=== PATIENT | male | born 1970 | race Caucasian/White ===

== ENCOUNTER 2019-10-09 10:39 | Emergency (ER) | payer OTHER ==
[~2019-10-09] VITALS: Ht 188 cm; Wt 102.1 kg
--- OUTSIDE RECORDS SUMMARY | ~2019-10-09 | XMS | Encounter Summary ---
Demographics + + + | Address | [address] | | | [place] [address] | + + + | Home Phone | | + + + | Preferred Language | Unknown | + + + | Marital Status | | + + + | Church Affiliation | NRP | + + + | Race | White | + + + | Ethnic Group | Not or | + + + Author + + + | Author | [facility] | + + + | Organization | [facility] | + + + | Address | Unknown | + + + | Phone | Unavailable | + + + Support + + + + + | Name | Relationship | Address | Phone | + + + + + | Cecile Chowdhury | ECON | [address] | | | | | [place] [address] | | + + + + + Care Team Providers + +------+ + | Care [facility] Name | Role | Phone | + +------+ + | Daniel Cannon MD | PCP | | + +------+ + Encounter Details +--------+ + + + + | Date | Type | Department | Care Team | Description | +--------+ + + + + | 04/18/ | Telephone | Otolaryngology | [facility] | | | 2017 | | Laryngology Services | MD [facility] [address] | | | | | at [facility] [address] | | | | | [place], | [place], [place] | | | | | [place] [address] | [address] | | | | | [phone] | [phone] | | | | | | | | +--------+ + + + + Social History + +-------+ +--------+ + | Tobacco Use | Types | Packs/Day | Years | Date | | | | | Used | | + +-------+ +--------+ + | Former Smoker | | 1.5 | 24 | Quit: 12/18/2017 | + +-------+ +--------+ + + +---+---+---+ | Smokeless Tobacco: | | | | | Never Used | | | | + +---+---+---+ + + | Comments: using Chantix--2 cigarettes per day | + + + + +---------+ + | Alcohol Use | Drinks/Week | oz/Week | Comments | + + +---------+ + | Yes | 84 Cans of beer | 84.0 | 12 pack daily | + + +---------+ + + + + | Sex Assigned at | Date Recorded | | | | + + + | Not on file | | + + + + + + + | Job Start Date | Occupation | Industry | + + + + | Not on file | Not on file | Not on file | + + + + + + + + | Travel History | Travel Start | Travel End | + + + + + + | No recent travel history available. | + + documented as of this encounter Functional Status + + + + | Functional Status | Response | Date of Assessment | + + + + | Because of a physical, mental, or emotional | No | 01/17/2018 | | condition, do you have serious difficulty | | | | doing errands alone such as visiting the | | | | doctor? | | | + + + + + + + + | Cognitive Status | Response | Date of Assessment | + + + + | Because of a physical, mental, or emotional | No | 01/17/2018 | | condition, do you have serious difficulty | | | | concentrating, remembering, or making | | | | decisions? 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
--- OUTSIDE RECORDS SUMMARY | ~2019-10-09 | XMS | Encounter Summary ---
Demographics + + + | Address | [address] | | | [place] [address] | + + + | Home Phone | | + + + | Preferred Language | Unknown | + + + | Marital Status | | + + + | Mandaeism Affiliation | NRP | + + + | Race | White | + + + | Ethnic Group | Not or | + + + Author + + + | Author | [facility] | + + + | Organization | [facility] | + + + | Address | Unknown | + + + | Phone | Unavailable | + + + Support + + + + + | Name | Relationship | Address | Phone | + + + + + | Cecile Chowdhury | ECON | [address] | | | | | [place] [address] | | + + + + + Care Team Providers + +------+ + | Care Fretted Instruments Inspector Name | Role | Phone | + +------+ + | Daniel Cannon MD | PCP | | + +------+ + Reason for Referral PROC - Inpatient Surgery (Routine) +--------+---------+ + + + + | Status | Reason | Specialty | Diagnoses / | Referred By | Referred To | | | | | Procedures | Contact | Contact | +--------+---------+ + + + + | Closed | Coded | Otolaryngolog | Diagnoses | Blanka, | Blanka, | | | | y | Malignant | Pasquale Little, | Pasquale Little MD | | | | | neoplasm of | [address] | | | | | glottis | [address] | [address] | | | | | ([facility]) | [address] [place] | [place] [place], | | | | | Dysphonia | [place], [place] | [place] | | | | | Procedures | [id number] | [address] | | | | | REQUEST TO | Phone: | Phone: | | | | | SURGERY | [phone] | [phone] | | | | | DIRECTOR TRIAL | Fax: | Fax: | | | | | [place] PART REMV | [phone] | [phone] | | | | | | | | | | | | LARYNX,ANTER | | | | | | | -LAT-VERT | | | | | | | [place] REMOVAL | | | | | | | OF LARYNX | | | | | | | MN REMOVAL | | | | | | | NODES, | | | | | | | NECK,CERV | | | | | | | MOD RAD MN | | | | | | | PLACE PERCUT | | | | | | | GASTROSTOMY | | | | | | | TUBE MN | | | | | | | CRICOPHAYNGE | | | | | | | AL MYOTOMY | | | | | | | [place] | | | | | | | ENDOSCOPIC | | | | | | | REVISION OF | | | | | | | LARYNX 90 G | | | +--------+---------+ + + + + Reason for Visit + + + | Reason | Comments | + + + | New patient | | | consultation | | + + + | Neoplasm Of Larynx | | + + + Consultation (Routine) +--------+--------+ + + + + | Status | Reason | Specialty | Diagnoses / | Referred By | Referred To | | | | | Procedures | Contact | Contact | +--------+--------+ + + + + | Closed | | Otolaryngolog | Diagnoses | Tolba, | Blanka, | | | | y | Laryngeal | Javier Gonzalez MD | Pasquale Little MD | | | | | cancer (HCC) | [address] | | | | | Procedures | [address] | [address] | | | | | CONSULT TO | [place], [place] | [place], | | | | | ENT GENERAL | [id number] | [place] | | | | | | Phone: | [phone] | | | | | | [phone] | Phone: | | | | | | Fax: | [phone] | | | | | | [phone] | Fax: | | | | | | | [phone] | +--------+--------+ + + + + Encounter Details +--------+---------+ + + + | Date | Type | Department | Care Team | Description | +--------+---------+ + + + | 01/04/ | Office | Otolaryngology | Pasquale Moscoso | T3N0 SCCa, right | | 2018 | Visit | Laryngology Services | MD [place] [address] | glottis (Primary | | | | at [facility] [address] | Dx); Dysphonia | | | | [address] [place], | [place], [place] | | | | | [place] [address] | [address] | | | | | [phone] | [phone] | | | | | | | | +--------+---------+ + + + Social History + +-------+ +--------+ + | Tobacco Use | Types | Packs/Day | Years | Date | | | | | Used | | + +-------+ +--------+ + | Former Smoker | | 1.5 | 25 | Quit: 11/29/2017 | + +-------+ +--------+ + + +---+---+---+ | Smokeless Tobacco: | | | | | Never Used | | | | + +---+---+---+ + + | Tobacco Cessation: Counseling Given: Yes | | Comments: using Chantix | + + + + +---------+ + | Alcohol Use | Drinks/Week | oz/Week | Comments | + + +---------+ + | Yes | 126 Cans of beer | 126.0 | "3 six-packs" daily | + + +---------+ + + [...] + + documented as of this encounter Last Filed Vital Signs + + + + + | Vital Sign | Reading | Time Taken | Comments | + + + + + | Blood Pressure | 142/92 | 01/05/2018 8:54 AM | | | | | PDT | | + + + + + | Pulse | 76 | 01/05/2018 8:54 AM | | | | | PDT | | + + + + + | Temperature | - | - | | + + + + + | Respiratory Rate | 14 | 01/05/2018 8:54 AM | | | | | PDT | | + + + + + | Oxygen Saturation | - | - | | + + + + + | Inhaled Oxygen | - | - | | | Concentration | | | | + + + + + | Weight | 104.3 kg (230 lb) | 01/05/2018 8:54 AM | | | | | PDT | | + + + + + | Height | 188 cm (6' 2") | 01/05/2018 8:54 AM | | | | | PDT | | + + + + + | Body Mass Index | 29.53 | 01/05/2018 8:54 AM | | | | | PDT | | + + + + + documented in this encounter Progress Notes Pasquale Msocoso MD - 01/04/2018 3:30 PM PDT PATIENT: Ronni Chowdhury MR#: [id number] : 1970 REQUESTING PROVIDER: Javier Montñao MD [address] [place] [address] PRIMARY CARE PROVIDER: Daniel Cannon MD CLINIC: [facility] CHIEF COMPLAINT: Chief Complaint Patient presents with New patient consultation Neoplasm Of Larynx HPI: Ronni Chowdhury is a 47 y.o. male who presents to the [facility] for evaluation of head and neck cancer. Mr. Chowdhury has a 6 month history of h oarseness that failed to respond to antibiotics and proton pump inhibitor. He was seen in [facility] by Dr. Castillo and found to have a lesion of the right vocal fold with diminished mo tion, suggesting a T2 lesion. This was confirmed at operation to be a squamous cell carcino ma. A CT scan of the neck and chest showed no sign of regional or distant spread. Mr. Yanna henning was referred initially to the [facility], per notes, but he ended up seeing Dr. Montaño in Medical Oncology here. Dr. Montaño evaluated Mr. Chowdhury and recommended a surgica l opinion with post-operative radiation therapy reserved for positive margins. He now does not note periods of normal voicing. Specific difficulties with voicing include : poor vocal quality, weak voice, inability to yell and trouble voicing on the telephone. H e does not note anterior neck discomfort or pain with voicing. He does not note globus sens ation. He does not note pain with swallowing. He does not note specific difficulties with swallowing. He has not altered his diet. He denies coughing and sputtering with swallowing, trouble breathing while swallowing, choking or recent aspiration-associated pneumonia. He denies dyspnea or noisy breathing. He has asthma, but does not feel that his breathing is l imited. He notes that he can easily walk 3-5 flights of stairs and does so periodically. Suresh ji has not had any fevers, chills or sweats. He has not had a history of radiation therapy. He has not had a history of chemotherapy. 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 His vocal demands are primar chary those of conversational speech and heavy telephone use. He reports that he is not talka tive. He notes that he rarely abuses his voice with yelling or shouting. PREVIOUS SURGERY: He has not had previous surgery on his esophagus. He has had previous s urgery on his larynx only for biopsy. He has had recent intubation. 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 Castillo Deviated nasal septum repair 2006 Liver biopsy 11/2016 SOCIAL Hx: Social History Social History Marital status: Spouse name: N/A Number of children: N/A Years of education: N/A Occupational History Not on file. Social History Main Topics Smoking status: Former Smoker Packs/day: 1.50 Years: 25.00 Quit date: 11/29/2017 Smokeless tobacco: Never Used Comment: using Chantix Alcohol use 75.6 oz/week 126 Cans of beer per week Comment: "3 six-packs" daily Drug use: Yes Types: Smoke Comment: marajuana Sexual activity: Not on file Other Topics Concern Not on file Social History Narrative Mr. Chowdhury is partnered. 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 He lives in [facility] He does have children. He does not have supportive friends or family members in the [facility] area. FAMILY HX: Family History Problem Relation Cancer Paternal Uncle 2 uncle's lung None Mother None Father Thyroid Neg Hx Tremors Neg Hx Movement Disorders Neg Hx ALLERGIES:No Known Allergies MEDICATIONS: Current Outpatient Prescriptions Medication Sig amLODIPine 10 mg oral tablet Take 10 mg by mouth once daily. CHANTIX STARTING MONTH BOX 0.5 mg (11)- 1 mg (42) oral tablets,dose pack TAKE ONE 0.5MG TABLET BY MOUTH DAILY ON DAYS 1-3, THEN ONE 0.5MG ... (REFER TO PRESCRIPTION NOTES). fluticasone-salmeterol (ADVAIR DISKUS) 500-50 mcg/dose inhalation blister with device i nhale 1 puff by mouth INTO THE LUNGS 2 TIMES DAILY VENTOLIN HFA 90 mcg/actuation inhalation HFA aerosol inhaler inhale 1-2 puffs every 4 t o 6 hours if needed No current facility-administered medications for this visit. ROS: He does note a history of hemochromatosis managed by Dr. Cannon and manifest only as elevated iron level, by his report. He has not had problems with anesthesia in the past. He does not note head tremors. He does not note extremity tremors. He does not note probl ems with anxiety. He does not note problems with depression. System review was otherwise negative for: recent objective fevers, productive cough, recent hemoptysis, physiologically significant murmur, recent angina, recent myocardial infarction, persistent arrhythmia, str dee dee, liver disease, primary bleeding disorder, bowel problems, or renal insufficiency/failur e. LAST WEIGHTS: Wt Readings from Last 3 Encounters: 01/05/18 104.3 kg (230 lb) 01/04/18 104.3 kg (230 lb) 12/26/17 104.1 kg (229 lb 8 oz) EXAMINATION: BP 142/92 | Pulse 76 | RR 14 | Ht 1.88 m (6' 2") | Wt 104.3 kg (230 lb) | BMI 29.53 kg/(m^2) Gen: He is a 47 y.o. male. He is awake, alert and comfortable with the examination. His weight is elevated. He is normocephalic. Ears: The pinnae are normal. External auditory canals show minimal cerumen bilaterally. The tympanic membranes are clear with normal anatomic landmarks and an aerated middle ear sp yobani. Nose: The nasal dorsum is straight and the nares are widely patent. The mucosa is pink and there are no lesions or masses noted. There is no significant nasal obstruction noted. Face: There are no worrisome lesions noted of the face or head. Salivary Glands: The salivary glands are soft and show no lesions or masses within the par otid or submandibular glands bilaterally. There is no obvious obstruction of Stensen's or W bina's ducts bilaterally. Oropharynx: Normal lips and oral competence are noted. The dentition is fair. The mucosa is dry and pale, but shows no lesions or masses. The tonsils are 1+ and the fossae show no lesions. Bimanual palpation of the gigivolabial sulcus, lingual sulcus, tonsillar pillars, palate and base of tongue did not demonstrate any concerning lesions or masses. Neck: The neck is atraumatic. There is no lymphadenopathy noted in the anterior, posterior , digastric or submental triangles. The thyroid is palpable, but not enlarged or tender. I cannot appreciate any nodules. The larynx is anatomic in positioning. The bilateral thyro hyoid muscle(s) are tight with voicing. The thyrohyoid muscle(s) are not tender. The bilat eral digastric muscle(s) are not tight with voicing. The digastric muscle(s) are not tender . The base of tongue is tight with voicing. It is not tender to palpation. Chest: Chest rise is symmetric and there is no audible wheezing, stridor or wet vocal qual ity. His chest is clear to auscultation bilaterally. Heart: He has a regular rate and rhythm. His pulses are full. Neurologic: The patient is awake, alert and cooperative with the examination. Responses t o questions were judged to be appropriate throughout the interview. The extraoccular moveme nts are intact and symmetric throughout. The pupils are equal. Application Integration Engineer strength does jessica ear full bilaterally. Facial motion is normal on the right. Facial motion is normal on t he left. Hearing is grossly intact. Gag reflex is normal on the right. Gag reflex is nor mal on the left. Palatal elevation is normal on the right. Palatal elevation is normal on the left. Tongue bulk is normal bilaterally and protrusion is midline. Tongue protrusion i s normal on the right. Tongue protrusion is normal on the left. There are no tremors of t he head, palate or tongue noted. There are no extremity tremors noted. VOICE EVALUATION: Perceptual voice evaluation demonstrates dysphonia which is mild to mod erate. The pitch is elevated for a male and shows limited range. Vocal intensity is accepta ble and shows limited upper range. There is 1-2+ roughness, 1-2+ breathiness, 0 asthenia and 1-2+ tightness appreciated. There is no tremor noted with sustained vowel phonation. I am unable to detect voice breaks. Glottal parsons is not detected. There is no diplophonia n oted. Articulation is normal. Resonance is mildly throat-focused. LARYNGOSCOPY: Laryngoscopy was performed using a distal-chip Olympus flexible videolaryngo scope following the topical nasal application of oxymetazoline and pontocaine. This was per formed because the patient's gag reflex precluded adequate transoral indirect laryngoscopy. This demonstrates a clear vallecula and crisp epiglottis. The aryepiglottic folds are inta ct and symmetric bilaterally. The hypopharynx is clear to the limits of my examination toda y and shows no pooling. The interarytenoid space demonstrates no lesions or pachydermia. T he false vocal folds are symmetric and without lesions or masses. They show minimal incorpo ration during sustained vowel phonation. The vocal folds show normal motion on the left and absent motion on the right. There is slight motion to the arytenoid, but the true vocal fo ld is fixed. The right fold is in a median position. There is no paradoxical motion. The m edial edges are crisp with mildly irregular leukoplakia on the right and none on the left. The mucosal covering appears edematous and mildly erythematous on the left, but otherwise he althy. There is obvious vascular ectasia or erythema. While closure is difficult to assess completely without stroboscopy, it appears to be complete with no anterior glottic gap. Th e vocal processes show no granulomas or contact ulcers. The subglottis and proximal trachea is clear and unobstructed to the limits of the examination today. No pseudosulcus can be a ppreciated on indirect examination. VIDEOSTROBOSCOPY: Laryngovideostroboscopy was performed today by Ruth Marinelli, Ph.D. Re view of laryngovideostroboscopy demonstrates laryngeal anatomy and motion as noted above. T here is moderate laryngeal hyperfunction which is most notable in the lateral dimension(s). There is not noted to be increased thick laryngeal mucous. Cricothyroid function appears to be intact on the left. The mucosal wave is occasionally periodic. Propagation of the mucos al waveform is anterior to posterior. There is no chasing asymmetry noted. On the right, t he wave amplitude is globally absent. On the left, the wave amplitude is globally decreased . Closure is not complete with a irregular pressed slit-like closure. There is noted to be a vertical phase defect by videostroboscopy. On the right, the mucosal edge appears mildly irregular. On the left, the mucosal edge appears free of lesions. On the right, the submu cosal space appears stiff diffusely. On the left, the submucosal space appears free of lesi ons. CT SCAN: Computed tomography of the neck and chest from 12/15/17 demonstrates: There is a soft tissue mass noted within the right paraglottic space that distorts the vent ricle mildly. It does not extend into the subglottic airway significantly. It does not enc robledo on the piriform near the cricoarytenoid joint laterally. There is no cartilage erosio n noted. The pre-epiglottic space appears normal. There is no lymphadenopathy noted. Ther e are no lesions or masses noted within the chest. I have reviewed these images and agree w ith the radiologist's findings. --JSS ASSESSMENT: Mr. 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 While Dr. Castillo had noted some motion of the ri ght vocal fold, I cannot appreciate any today. 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 I think that this is best managed with supracricoid partial laryngectomy, as I cannot expect to cure the lesion endoscopically. Chemoradiation therapy could be considered, but the failure rate his higher than with surgery and he would be expe cted to live for many years following this with progressive radiation fibrosis and expected voice, swallowing and airway challenges. We discussed the etiology and management of advan nelly glottic squamous cell carcinoma today at great length. Treatment options generally incl ude organ preservation chemoradiation therapy, total laryngectomy or organ preservation surg teodora. There are voice, airway and swallowing implications for all of these options. We dis cussed these at great length today as well as the expected time course of treatment, recover y and return to function. We discussed relative limitations and benefits of all 3 options a s well as risks and side-effects. I allowed Mr. Chowdhury to ask questions pertaining to these treatment modalities and answered his questions to the best of my ability. We talked about supracricoid partial laryngectomy with cricohyoidoepiglottopexy as well as total laryngectomy with or without tracheoesophageal puncture. The supracricoid partial la ryngectomy allows comprehensive resection of more locally advanced glottic and supraglottic tumors similar to a near total laryngectomy without the need for a tracheostoma or permanent diet modification after recovery. While very hoarse, the vocal quality is more variable th an airway or swallowing functionally, but generally quite acceptable to most and very satisf actory for conversation and telephone use. We talked about the functional disabilities follo wing surgery as well as the possible need to convert a partial laryngectomy procedure to a t otal laryngectomy either at the time of the operation or in the future for persistent diseas e, dysphagia, dyspnea or aphonia. I noted carefully, that I would not initiate the supracri coid partial laryngectomy if he did not appear to be a good candidate for this at direct luann rolaryngoscopy and total laryngectomy would be required. If not previously radiated, these patients receive percutaneous endogastric tube and may undergo radiation therapy or chemorad iation therapy, reserving total laryngectomy for salvage. If previously radiated, these pat ients require a total laryngectomy and we would proceed with that. We talked about the sonya david duration, need for tracheotomy, enteral feeding tube, length of hospital stay as well a s recovery and rehabilitation. We talked about the possible need to convert to a total millie ngectomy if dictated by positive surgical margins at surgery. We talked about the other ris ks of surgery, including bleeding, infection, dental injury, nerve injury (to hypoglossal, s arnulfo accessory, vagus, phrenic and marginal mandibular nerves), airway obstruction with nee d for prolonged tracheotomy, dysphagia with need for prolonged enteral feeding and hoarsenes s. He also met with Ruth Marinelli, Ph.D. to discuss post-operative voice and speech rehabi litation for both supracricoid partial laryngectomy and total laryngectomy. I sat with him and answered all questions to the best of my ability. PLAN: After a thorough discussion of our findings today and answering all questions to the best of my ability, Mr. Chowdhury has elected to undergo direct microlaryngoscopy, supracricoid partial laryngectomy with cricohyoidoepiglottopexy-- and remote possibility of total laryng ectomy-- as well as right modified radical neck dissection, tracheotomy tube and percutaneou s endogastric tube placement. I would like to get this done as soon as possible as I fear t hat his lesion is growing significantly. I will forward the information to my tax assistant to arrange a surgical date and pre-operative evaluation. Pasquale Moscoso M.D. Cs Associate Laryngology and Head & Neck Surgery Alannah Barros - 01/04/2018 3:30 PM PDTprocedure was performed using the following instru ments: Description #1: V2 Serial ID #1: [id number] signed by Alannah Barros at 01/05/2018 9:12 AM PDTdo cumented in this encounter Plan of Treatment +--------+---------+ + + + | Date | Type | Specialty | Care Team | Description | +--------+---------+ + + + | 03/19/ | Office | Otolaryngology | Pasquale Moscoso | | | 2019 | Visit | | MD [place] [address] | | | | | | [address] | | | | | | [place], [place] | | | | | | [address] | | | | | | [phone] | | | | | | | | +--------+---------+ + + + documented as of this encounter Visit Diagnoses + + | Diagnosis | + + | 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
--- OUTSIDE RECORDS SUMMARY | ~2019-10-09 | XMS | Encounter Summary ---
Demographics + + + | Address | [address] | | | [place] [address] | + + + | Home Phone | | + + + | Preferred Language | Unknown | + + + | Marital Status | | + + + | Mormonism Affiliation | Unknown | + + + | Race | Unknown | + + + | Ethnic Group | Unknown | + + + Author + + + | Author | [facility] | | | and [place] | + + + | Organization | [facility] | | | and [place] | + + + | Address | Unknown | + + + | Phone | Unavailable | + + + Support + + +---------+ + | Name | Relationship | Address | Phone | + + +---------+ + | Cecile Chowdhury | ECON | Unknown | | + + +---------+ + Care Team Providers + +------+ + | Care Wood Room Hand Name | Role | Phone | + +------+ + | Daniel Cannon MD | PCP | | + +------+ + Encounter Details +--------+ + + + + | Date | Type | Department | Care Team | Description | +--------+ + + + + | 09/21/ | Hospital | [facility] | Naida Burnette | | | 2018 | Encounter | MED CTR RADIATION | MD Brad [address] | | | | | ONCOLOGY [address] [place] | | | | | [place], | [address] | | | | | [place] [address] | | | | | | [phone] | | | +--------+ + + + + Social History + + + +--------+------+ | Tobacco Use | Types | Packs/Day | Years | Date | | | | | Used | | + + + +--------+------+ | Current Every Day | Cigarettes | 1 | 23 | | | Smoker | | | | | + + + +--------+------+ + +---+---+---+ | Smokeless Tobacco: | | | | | Never Used | | | | + +---+---+---+ + + | Comments: he is smoking slightly about a ppd, he is almost ready to try quitting again | + + + + +---------+ + | Alcohol Use | Drinks/Week | oz/Week | Comments | + + +---------+ + | Yes | 42 Standard drinks | 35.0 | 6 pack per night | | | or equivalent | | | + + +---------+ + + + [...] + + documented as of this encounter Medications at Time of Discharge + + + +---------+ + + | Medication | Sig | Dispensed | Refills | Start | End Date | | | | | | Date | | + + + +---------+ + + | acetaminophen | Take 1 tablet by | | 0 | 06/21/20 | | | (TYLENOL) 500 mg | mouth. | | | 18 | | | tablet | | | | | | + + + +---------+ + + | ADVAIR DISKUS | inhale 1 puff by | 60 each | 11 | 04/30/20 | | | 500-50 MCG/DOSE | mouth INTO THE LUNGS | | | 15 | | | diskus inhaler | 2 TIMES DAILY | | | | | + + + +---------+ + + | amLODIPine | Take by mouth | | 0 | 01/24/20 | | | (NORVASC) 10 MG | Daily. | | | 18 | | | tablet | | | | | | + + + +---------+ + + | | Swish and swallow 5 | 250 mL | 3 | 08/17/20 | | | diphenhydrAMINE-lido | mLs every 4 hours as | | | 18 | | | tiara-aluminum & | needed for Pain. | | | | | | magnesium | (RECIPE = 1:1:1 | | | | | | hydroxide-simethicon | mixture of Maalox, | | | | | | e (MAGIC MOUTHWASH) | diphenhydrAMINE, | | | | | | | viscous lidocaine) | | | | | + + + +---------+ + + | gabapentin | Take by mouth 3 | | 0 | 06/21/20 | | | (NEURONTIN) 300 mg | times daily as | | | 18 | | | capsule | needed. | | | | | + + + +---------+ + + | PROAIR HFA 108 (90 | inhale 2 puffs by | 8.5 g | 6 | 04/30/20 | | | BASE) MCG/ACT | mouth INTO THE LUNGS | | | 15 | | | inhaler | EVERY 4 HOURS | | | | | | | NEEDED FOR WHEEZING | | | | | + + + +---------+ + + | sildenafil | Take 100 mg by mouth | | 0 | | | | (VIAGRA) 100 MG | as needed for | | | | | | tablet | Erectile | | | | | | | Dysfunction. Take 1 | | | | | | | tablet by mouth | | | | | | | daily 1 hour before | | | | | | | if needed. | | | | | + + + +---------+ + + | amoxicillin | Take 1 capsule by | 63 | 0 | 09/21/20 | | | (AMOXIL) 500 MG | mouth 3 times daily | capsule | | 18 | 8 | | capsule | for 21 days. | | | | | + + + +---------+ + + | oxyCODONE | Take 5 mg by mouth | | 0 | 06/21/20 | | | (ROXICODONE) 5 mg | every 4 hours as | | | 18 | 9 | | tablet | needed. Take 1-3 | | | | | | | tablets every 4 | | | | | | | hours as needed. | | | | | + + + +---------+ + + documented as of this encounter Plan of Treatment +--------+ + + + + | Date | Type | Specialty | Care Team | Description | +--------+ + + + + | 01/01/ | Appointment | Radiation Oncology | Naida Burnette | | | 2020 | | | MD Brad [address] | | | | | | [place] | | | | | | [id number] | | | | | | | | +--------+ + + + + documented as of this encounter Visit Diagnoses Not on filedocumented in this encounter"
--- OUTSIDE RECORDS SUMMARY | ~2019-10-09 | XMS | Encounter Summary ---
Demographics + + + | Address | [address] | | | [place] [address] | + + + | Home Phone | | + + + | Preferred Language | Unknown | + + + | Marital Status | | + + + | Baptist Affiliation | Unknown | + + + | Race | Unknown | + + + | Ethnic Group | Unknown | + + + Author + + + | Author | [facility] | | | and [place] | + + + | Organization | [facility] | | | and [...] Team Providers + +------+ + | Care Commander Internal Affairs Name | Role | Phone | + +------+ + | Daniel Cannon MD | PCP | | + +------+ + Encounter Details +--------+ + + + + | Date | Type | Department | Care Team | Description | +--------+ + + + + | 08/25/ | Orders Only | [facility] | Naida Burnette | | | 2017 | | MED CTR RADIATION | MD Brad [address] | | | | | ONCOLOGY CLINIC [address] | [place] | | | | | [address] [place] | [address] | | | | | [place] [address] | | | | | | [phone] | | | +--------+ + + + [...] + + documented as of this encounter Progress Notes Yolande Barreto RN - 08/25/2018 9:58 AM PSTIn error documented in this encounter Plan of Treatment +--------+ + + + + | Date | Type | Specialty | Care Team | Description | +--------+ + + + + | 01/01/ | Appointment | Radiation Oncology | Naida Burnette | | | 2019 | | | MD Edi [address] | | | | | | [place] | | | | | | [id number] | | | | | | | | +--------+ + + + + documented as of this encounter Visit Diagnoses Not on filedocumented in this encounter"
--- OUTSIDE RECORDS SUMMARY | ~2019-10-09 | XMS | Encounter Summary ---
Demographics + + + | Address | [address] | | | [place] [address] | + + + | Home Phone | | + + + | Preferred Language | Unknown | + + + | Marital Status | | + + + | Congregation Affiliation | Unknown | + + + | Race | Unknown | + + + | Ethnic Group | Unknown | + + + Author + + + | Author | [facility] | | | and [place] | + + + | Organization | [facility] | [...] Team Providers + +------+ + | Care Machinist Tool And Die Name | Role | Phone | + +------+ + PCP | Unavailable | + +------+ + Encounter Details +--------+ + + + + | Date | Type | Department | Care Team | Description | +--------+ + + + + | 01/24/ | Hospital | [facility] | Bony [place], | | | 2011 | Encounter | MED CTR EMERGENCY | [address] | | | | | CENTER [address] | [place] | | | | | [place] | [id number] | | | | | [address] | | | | | | [phone] | | | +--------+ + + + + Social History + +-------+ +--------+------+ | Tobacco Use | Types | Packs/Day | Years | Date | | | | | Used | | + +-------+ +--------+------+ | Never Assessed | | | | | + +-------+ +--------+------+ + + + | Sex Assigned at [...] | | 2019 | | | MD Brad [address] | | | | | | [place] | | | | | | [address] | | | | | | | | +--------+ + + + + documented as of this encounter Procedures + +--------+ + + + | Procedure Name | Priori | Date/Time | Associated Diagnosis | Comments | | | ty | | | | + +--------+ + + + | XR CHEST PA AND | | 01/25/2012 | | Results for this | | LATERAL | | 7:38 AM | | procedure are in the | | | | PDT | | results section. | + +--------+ + + + documented in this encounter Results XR Chest PA and Lateral (01/25/2012 7:38 AM PDT) + + | Specimen | + + | | + + + + + | Narrative | Performed At | + + + | [facility] Diagnostic Imaging Department | [facility] | | [address] [facility] | [facility] | | CHEST, PA AND LATERAL: | DIAG IMG | | 01/25/2012 CLINICAL HISTORY: SHORTNESS OF BREATH AND WHEEZING. | | | COMPARISON: 01/11/2012 FINDINGS: Frontal and lateral | | | views of the chest. There has been some increase in peribronchial | | | thi ckening and prominence of the interstitium emanating from both | | | maury. No focal airspace process at th is time. No pleural | | | effusion. No pneumothorax. There is mild hyperexpansion of the | | | lungs. Cardiac contour is not enlarged. Mediastinal contours are | | | prominent. Osseous structures are unremarkable. IMPRESSION: | | | INCREASED INTERSTITIAL PROCESS BILATERALLY. GIVEN THE | | | HYPERAERATION, THIS MAY BE RELATED TO SMALL AIRWAYS DISEASE. I | | | CANNOT EXCLUDE DEVELOPING INTERSTITIAL PNEUMONITIS. GIVEN THE | | | APPEARAN CE OF THE MAURY CANNOT EXCLUDE ADENOPATHY. WOULD RECOMMEND | | | FOLLOWUP RADIOGRAPHY TO ENSURE RESOLUTION. CONSIDER CHEST CT IF | | | THE PATIENT'S CLINICAL SYMPTOMS CONTINUE TO WORSEN DESPITE THERAPY. | | | Dictated Date/Time: 01/25/2012 10:22 Transcribed Date/Time: | | | 01/25/2012 10:40 Graffiti Cleaner: <Electronically Signed | | | by Jefry Ann MD> 01/25/12 1121 | | + + + + + | Procedure Note | + + | Tio, Rad Conversion - 11/23/2013 5:05 PM [facility] | | Diagnostic Imaging Department [address] [place] [address] | | CHEST, PA AND LATERAL: 01/25/2012 CLINICAL HISTORY: | | SHORTNESS OF BREATH AND WHEEZING. COMPARISON: 01/11/2012 FINDINGS: Frontal and lateral | | views of the chest. There has been some increase in peribronchial thickening and | | prominence of the interstitium emanating from both maury. No focal airspace process at | | this time. No pleural effusion. No pneumothorax. There is mild hyperexpansion of the | | lungs. Cardiac contour is not enlarged. Mediastinal contours are prominent. Osseous | | structures are unremarkable. IMPRESSION: INCREASED INTERSTITIAL PROCESS BILATERALLY. | | GIVEN THE HYPERAERATION, THIS MAY BE RELATED TO SMALL AIRWAYS DISEASE. I CANNOT EXCLUDE | | DEVELOPING INTERSTITIAL PNEUMONITIS. GIVEN THE APPEARANCE OF THE MAURY CANNOT EXCLUDE | | ADENOPATHY. WOULD RECOMMEND FOLLOWUP RADIOGRAPHY TO ENSURE RESOLUTION. CONSIDER CHEST | | CT IF THE PATIENT'S CLINICAL SYMPTOMS CONTINUE TO WORSEN DESPITE THERAPY. Dictated | | Date/Time: 01/25/2012 10:22Transcribed Date/Time: 01/25/2012 10:40Transcriptionist: | | <Electronically Signed by Jefry Ann MD> 01/25/12 1121 | | contour is not enlarged. Mediastinal contours are prominent. Osseous structures are unre markable. | | | | | |IMPRESSION: INCREASED INTERSTITIAL PROCESS BILATERALLY. GIVEN THE HYPERAERATION, THIS MAY BE RELATED | | TO SMALL AIRWAYS DISEASE. I CANNOT EXCLUDE DEVELOPING INTERSTITIAL PNEUMONITIS. GIVEN TH E APPEARAN | |CE OF THE MAURY CANNOT EXCLUDE ADENOPATHY. WOULD RECOMMEND FOLLOWUP RADIOGRAPHY TO ENSURE R ESOLUTION. | | CONSIDER CHEST CT IF THE PATIENT'S CLINICAL SYMPTOMS CONTINUE TO WORSEN DESPITE THERAPY. | | | |Dictated Date/Time: 01/25/2012 10:22 | |Transcribed Date/Time: 01/25/2012 10:40 | |Graffiti Cleaner: | |<Electronically Signed by Jefry Ann MD> 01/25/12 1121 | + + + +---------+ + + | Performing | Address | City/State/Zipcode | Phone Number | | Organization | | | | + +---------+ + + | [place] | | | | | [facility] | | | | + +---------+ + + documented in this encounter Visit Diagnoses Not on filedocumented in this encounter"
--- OUTSIDE RECORDS SUMMARY | ~2019-10-09 | XMS | Encounter Summary ---
Demographics + + + | Address | [address] | | | [place] [address] | + + + | Home Phone | | + + + | Preferred Language | Unknown | + + + | Marital Status | | + + + | Yazidism Affiliation | NRP | + + + | Race | White | + + + | Ethnic Group | Not or | + + + Author + + + | Author | [facility] | + + + | Organization | [facility] | + + + | Address | Unknown | + + + | Phone | Unavailable | + + + Support + + + + + | Name | Relationship | Address | Phone | + + + + + | Cecile Chowdhury | ECON | [address] | | | | | [place] [address] | | + + + + + Care Team Providers + +------+ + | Care Machine Setup Operator Name | Role | Phone | + +------+ + | Daniel Cannon MD | PCP | | + +------+ + Encounter Details +--------+ + + + + | Date | Type | Department | Care Team | Description | +--------+ + + + + | 06/07/ | Pharmacy | Outpatient Retail | | | | 2017 | Visit | [facility] | | | | | | [address] | | | | | | [address] [place], [place] | | | | | | [address] | | | | | | [phone] | | | +--------+ + + + [...] 2020 | Visit | | MD Sidney [address] | | | | | | [address] | | | | | | [place], [place] | | | | | | [address] | | | | | | [phone] | | | | | | | | +--------+---------+ + + + documented as of this encounter Visit Diagnoses Not on filedocumented in this encounter"
--- OUTSIDE RECORDS SUMMARY | ~2019-10-09 | XMS | Encounter Summary ---
Demographics + + + | Address | [address] | | | [place] [address] | + + + | Home Phone | | + + + | Preferred Language | Unknown | + + + | Marital Status | | + + + | Druze Affiliation | Unknown | + + + | Race | Unknown | + + + | Ethnic Group | Unknown | + + + Author + + + | Author | [facility] | | | and [place] | + + + | Organization | [facility] | | | and [...] Team Providers + +------+ + | Care Retail Delivery Driver Name | Role | Phone | + +------+ + | Daniel Cannon MD | PCP | | + +------+ + Reason for Visit + + + | Reason | Comments | + + + | Wound Infection | Rm 3 x left arm | + + + Encounter Details +--------+---------+ + + + | Date | Type | Department | Care Team | Description | +--------+---------+ + + + | 01/16/ | Office | [facility] | Ena Francis | Dermatitis (Primary | | 2012 | Visit | [facility] [address] | [address] | Dx) | | | | [facility] | [facility] [place] | | | | | [place] | [address] | | | | | [address] | | | | | | [phone] | | | +--------+---------+ + + + Social History + + [...] | | | + +---+---+---+ + + +---------+ + | Alcohol Use [...] + + + | Blood Pressure | 136/88 | 01/16/2013 3:50 PM | | | | | PDT | | + + + + + | Pulse | 86 | 01/16/2013 3:50 PM | | | | | PDT | | + + + + + | Temperature | 36.8 C (98.2 F) | 01/16/2013 3:50 PM | | | | | PDT | | + + + + + | Respiratory Rate | 18 | 01/16/2013 3:50 PM | | | | | PDT | | + + + + + | Oxygen Saturation | 100% | 01/16/2013 3:50 PM | | | | | PDT | | + + + + + | Inhaled Oxygen | - | - | | | Concentration | | | | + + + + + | Weight | 96.6 kg (213 lb) | 01/16/2013 3:50 PM | | | | | PDT | | + + + + + | Height | 188 cm (6' 2") | 01/16/2013 3:50 PM | | | | | PDT | | + + + + + | Body Mass Index | 27.35 | 01/16/2013 3:50 PM | | | | | PDT | | + + + + + documented in this encounter Patient Instructions Patient Instructions Ena Francis MD - 01/16/2013 4:30 PM PDTPrednisone as dir ected--take after food Silvadene cream a thin coat twice daily to keep moist Pepcid 20 mg po bid Benadryl if itchy documented in this encounter Progress Notes Ena Francis MD - 01/16/2013 5:54 PM PDTFormatting of this note might be diffe rent from the original. Subjective: Patient ID: Ronni Chowdhury is a 42 y.o. male. Rash This is a new problem. The current episode started in the past 7 days (Pt and friends decid ed to make a brand and brand themselves and this branc became red and irritated and infected looking.). Progression since onset: Pt was seen [facility] and put on bactrim and bactrob an and the bactroban made it more red and the arm was more swollen. The affected locations i nclude the left arm. The rash is characterized by blistering, dryness and scaling (It oozes clear then dries and cracks). Associated with: branding with a metal brand and then had reac tion to bactroban. Pertinent negatives include no fatigue, fever or joint pain. Past treatme nts include antibiotic cream, antibiotics and topical steroids. The treatment provided no re lief. His past medical history is significant for eczema. Patient's medications, allergies, past medical, surgical, social and family histories were reviewed and updated as appropriate. Review of Systems Constitutional: Negative for fever and fatigue. Musculoskeletal: Negative for joint pain. Skin: Positive for rash. All other systems reviewed and are negative. Objective: Physical Exam Nursing note and vitals reviewed. Constitutional: He appears well-developed and well-nourished. Lymphadenopathy: He has no axillary adenopathy. Skin: Pt has swollen forearm that seems more like edema from allergy than infection. The sk in is red and warm and there isdry splitting and peeling areas. It most resembles a weeping contact dermatitis Assessment: dermatitis Plan: Patient Instructions Prednisone as directed--take after food Silvadene cream a thin coat twice daily to keep moist Pepcid 20 mg po bid Benadryl if itchy Morelia Mccoy 01/16/2013 4:39 PM PDTDressed wound with silvadene cream and kerlex documented in this encounter Plan of Treatment +--------+ + + + + | Date | Type | Specialty | Care Team | Description | +--------+ + + + + | 01/01/ | Appointment | Radiation Oncology | Naida Burnette | | | 2019 | | | MD Edi [address] | | | | | | [place], [place] | | | | | | [address] | | | | | | | | +--------+ + + + + documented as of this encounter Visit Diagnoses + + | Diagnosis | + + | Dermatitis - Primary Contact dermatitis and other eczema, due to unspecified cause | + + documented in this encounter
--- OUTSIDE RECORDS SUMMARY | ~2019-10-09 | XMS | Encounter Summary ---
Demographics + + + | Address | [address] | | | [place] [address] | + + + | Home Phone | | + + + | Preferred Language | Unknown | + + + | Marital Status | | + + + | Jehovah'S Witness Affiliation | NRP | + + + | Race | White | + + + | Ethnic Group | Not or | + + + Author + + + | Author | [facility] | + + + | Organization | [facility] | + + + | Address | Unknown | + + + | Phone | Unavailable | + + + Support + + + + + | Name | Relationship | Address | Phone | + + + + + | Cecile Chowdhury | ECON | [address] | | | | | [place] [address] | | + + + + + Care Team Providers + +------+ + | Care Third Shift Lieutenant Name | Role | Phone | + +------+ + | Daniel Cannon MD | PCP | | + +------+ + Reason for Visit + + + | Reason | Comments | + + + | Pre-operative | | | evaluation | | + + + Encounter Details +--------+ + + + + | Date | Type | Department | Care Team | Description | +--------+ + + + + | 06/16/ | Telephone-S | Preoperative | | Pre-operative | | 2018 | cheduled | Medicine Clinic at | | evaluation | | | | [facility] | | | | | | Stay [address] | | | | | | [address] | | | | | | Mailcode: U[facility] | | | | | | [place] | | | | | | [address] [place], [place] | | | | | | [address] | | | | | | [phone] | | | +--------+ + + + + Anesthesia Record + + + + + | Procedure Name | Responsible | Anesthesia Start | Anesthesia Stop Time | | | Anesthesiologist | Time | | + + + + + | DIRECT | Daniel Wong MD | 06/20/18 1544 | 06/20/18 1743 | | MICROLARYNGOSCOPY | | | | | WITH BIOPSY, (N/A | | | | | Neck) | | | | + + + + + +----+---+ + + | Da | T | Event | Comment | | te | i | | | | | m | | | | | e | | | +----+---+ + + | 09 | 1 | Eq Check | Anesthesia machine checked Equipment verified | | /0 | 5 | | | | 4/ | 3 | | | | 20 | 8 | | | | 18 | | | | +----+---+ + + | | 1 | Pt. Check | Prior to anesthesia start, pt. Identified, examined, chart | | | 5 | | reviewed, PARQ held, anesthetic plan made or approved by | | | 3 | | attending anesthesiologist. NPO status confirmed as appropriate | | | 8 | | for procedure Preoperative evaluation: unchanged | +----+---+ + + | | 1 | An Start | | | | 5 | | | | | 4 | | | | | 4 | | | +----+---+ + + | | 1 | An Start | | | | 5 | Data | | | | 4 | | | | | 6 | | | +----+---+ + + | | 1 | Vitals | Monitors applied Vital signs checked Patient ready for anesthesia | | | 5 | Checked | | | | 4 | | | | | 9 | | | +----+---+ + + | | 1 | ETT | | | | 5 | | | | | 5 | | | | | 7 | | | +----+---+ + + | | 1 | Ready | | | | 5 | | | | | 5 | | | | | 8 | | | +----+---+ + + | | 1 | Abx | | | | 6 | Administere | | | | 0 | d | | | | 5 | | | +----+---+ + + | | 1 | Incision | | | | 6 | | | | | 0 | | | | | 7 | | | +----+---+ + + | | 1 | Quick Note | ETT removed by surgeons. | | | 6 | | | | | 1 | | | | | 5 | | | +----+---+ + + | | 1 | Quick Note | ETT replaced by surgeons. | | | 6 | | | | | 2 | | | | | 0 | | | +----+---+ + + | | 1 | Quick Note | ETT removed by surgeons. | | | 6 | | | | | 2 | | | | | 1 | | | +----+---+ + + | | 1 | Quick Note | ETT re-inserted by surgeons. Start neck dissection portion. | | | 6 | | | | | 2 | | | | | 3 | | | +----+---+ + + | | 1 | Surgery end | | | | 7 | | | | | 3 | | | | | 5 | | | +----+---+ + + | | 1 | An Extubate | Neuromuscular function Intact. Pharynx suctioned. Patient obeys | | | 7 | | commands. Adequate pulmonary mechanics. | | | 3 | | | | | 7 | | | +----+---+ + + | | 1 | an stop | | | | 7 | data | | | | 3 | | | | | 7 | | | +----+---+ + + | | 1 | PACU Rpt | | | | 7 | Given | | | | 4 | | | | | 3 | | | +----+---+ + + | | 1 | Anesthesia | | | | 7 | End | | | | 4 | | | | | 3 | | | +----+---+ + + +------+ | Meds | +------+ + + + No medications | on file. | + + + + + | No agents on file. | + + + + | No blood administrations on file. | + + +--------+ + + + | Type | Details | Placement | Removal | +--------+ + + + | Feedin | 01/16/18; 1003; JS; PEG tube | 01/16/18 1003 by | | | g Tube | (20f); Abdomen UL; 20; tolerated | Peace Dunne RN | | | | well | | | +--------+ + + + | Incisi | 01/16/18; 1044; JH; Anterior; | 01/16/18 1044 by | | | on | neck | Peace Dunne RN | | +--------+ + + + | Trache | 01/16/18; 1137; MD Luci; | 01/16/18 1137 by | | | ostomy | Adult; Slade; 8.0; 7.6 mm; 12.2 | Pamela Delacruz RN | | | | mm; 79 mm; Cuffed | | | +--------+ + + + | Drain | 01/16/18; 1559; MD Blanka; | 01/16/18 1559 by | | | | DERRICK; Right; neck; 1 | Lorna Villeda RN | | +--------+ + + + | Periph | 05/29/18; 1314; Right; Medial; | 05/29/18 1314 by | | | eral | Antecubital; 20 g; Positive | Lori Fowler RN | | | IV | | | | +--------+ + + + | Hamzahi | 06/20/18; 1630; Kacey Cardenas; Right; | 06/20/18 1630 by | | | on | Lateral; neck | Ling Collado RN | | +--------+ + + + | Drain | 06/20/18; 1710; Blanka; DERRICK; | 06/20/18 1710 by | | | | Right; neck | Ling Collado RN | | +--------+ + + + | Srinivasan Wong ; Left; Lateral; Hand; | 06/20/18 1612 by | 06/21/18 1045 by | | agata | 18 g; 06/21/18; 1045; Per order, | | Patti Gonzalez | | IV | Per protocol, Discharge | | CHARLES Hugo | +--------+ + + + | ETT | 06/20/18; 1610 (created via | 06/20/18 1610 by | 06/20/181736 by | | | procedure documentation); | Tommy Chatman MD | Tommy Chatman MD | | | Endotracheal Tube; 6; Oral; | | | | | 06/20/18; 1737 | | | +--------+ + + + documented in this encounter Social History + + + +--------+ + | Tobacco Use | Types | Packs/Day | Years | Date | | | | | Used | | + + + +--------+ + | Current Every Day | Cigarettes | 0.5 | 25 | Quit: 12/18/2017 | | Smoker | | | | | + + + +--------+ + + +---+---+---+ | Smokeless Tobacco: [...] + + documented as of this encounter Patient Instructions Patient Instructions Shanta Lipscomb RN - 06/16/2018 1:14 PM PDTFormatting of this note alfredito ht be different from the original. PREOPERATIVE INSTRUCTIONS Do not eat or drink anything after midnight the night before surgery. TAKE the following medications with a sip of water on the morning of surgery: ALBUTEROL SULFATE HFA 90 MCG/ACTUATION AEROSOL INHALER AMLODIPINE 10 MG TABLET GABAPENTIN 300 MG CAPSULE HYDROCODONE 5 MG-ACETAMINOPHEN 325 MG TABLET Do NOT take the following medications on the morning of surgery: ACETAMINOPHEN 500 MG TABLET SENNOSIDES 8.6 MG-DOCUSATE SODIUM 50 MG TABLET Unless Otherwise Directed by your Surgeon Do not take any Aspirin, vitamin E or non-ster oidal anti-inflammatory (NSAIDs i.e. Advil, Aleve, Ibuprofen) or herbal supplements seven da ys prior to your surgery. These drugs may interfere with normal blood clotting and may cause excessive bleeding and bruising during or after the surgery. If you are taking Coumadin (warfarin), Plavix or any other blood thinners please let you r surgical team know as medication changes will be necessary. If you need a pain medication for general purposes, use Tylenol as directed. If you are in doubt about any medications that you are taking, please contact our office . Important Guidelines Do not smoke, drink alcohol or use recreational drugs for 24 hours before your surgery Do not eat any hard candy or chew gum after midnight the night before your surgery. Watch for any change in your health condition. Let your surgeon know right away if you do not feel well. Do not wear makeup, perfume, lotions or powder. Remove any nail bengali from at least one fingernail. Do not wear any jewelry to the hospital. Wear loose, comfortable clothing. Bring the case and solution for your contact lenses or wear your glasses. Leave all your valuables at home. Allow enough travel time so you re not late for your check in for surgery. Take a bath or shower and remember to shampoo your hair using your usual hair product be fore your arrival at the hospital. Please remember to brush your teeth the night before and the morning of your procedure. Surgery Check in Locations Day Stay Unit [facility], fourth floor Room 4510 Surgery Check in Time: Someone from your surgeon's office or [facility] will provide you with information regarding your check in time. If you have any questions about this, pl ease contact your surgeon's office. Going Home Your surgical team will decide when you are medically ready to go home. If you are released to go home on the same day as your procedure/surgery please note the following: You will not be able to drive. You will be required to have a competent adult drive you or accompany you by taxi or pub lic transportation on the day of discharge. It is also required that you have a competent adult assist you and look after you on the first night after you have undergone regional blocks (72 hours for patients going home with regional block pump), deep sedation, and/or general anesthesia. If you have questions or concerns after you go home, call your doctor s office. If it is after office hours, call the [facility] straight ruling machine operator at [phone] and ask them to page your doc tor. documented in this encounter Plan of Treatment +--------+---------+ + + + | Date | Type | Specialty | Care Team | Description | +--------+---------+ + + + | 03/19/ | Office | Otolaryngology | Pasquale Moscoso | | | 2019 | Visit | | MD [place] [address] | | | | | | [address] | | | | | | [place], [place] | | | | | | [address] | | | | | | [phone] | | | | | | | | +--------+---------+ + + + documented as of this encounter Visit Diagnoses Not on filedocumented in this encounter"
--- OUTSIDE RECORDS SUMMARY | ~2019-10-09 | XMS | Encounter Summary ---
Demographics + + + | Address | [address] | | | [place] [address] | + + + | Home Phone | | + + + | Preferred Language | Unknown | + + + | Marital Status | | + + + | Orthodoxy Affiliation | NRP | + + + | Race | White | + + + | Ethnic Group | Not or | + + + Author + + + | Author | [facility] | + + + | Organization | [facility] | + + + | Address | Unknown | + + + | Phone | Unavailable | + + + Support + + + + + | Name | Relationship | Address | Phone | + + + + + | Cecile Chowdhury | ECON | [address] | | | | | [place] [address] | | + + + + + Care Team Providers + +------+ + | Care Contact Lens Inspector Name | Role | Phone | + +------+ + | Daniel Cannon MD | PCP | | + +------+ + Encounter Details +--------+ + + + + | Date | Type | Department | Care Team | Description | +--------+ + + + + | 01/26/ | Telephone | Otolaryngology | Pasquale Moscoso | | | 2017 | | Laryngology Services | MD [place] [address] | | | | | at [facility] [address] | [address] | | | | | [place], | [place], [place] | | | | | [place] [address] | [address] | | | | | [phone] | [phone] | | | | | | | [...] | Visit | | MD Sidney [address] | | | | | | [address] | | | | | | [place] | | | | | | [address] | | | | | | [phone] | | | | | | | | +--------+---------+ + + + documented as of this encounter Visit Diagnoses Not on filedocumented in this encounter"
--- OUTSIDE RECORDS SUMMARY | ~2019-10-09 | XMS | Encounter Summary ---
Demographics + + + | Address | [address] | | | [place] [address] | + + + | Home Phone | | + + + | Preferred Language | Unknown | + + + | Marital Status | | + + + | Yazidi Affiliation | NRP | + + + | Race | White | + + + | Ethnic Group | Not or | + + + Author + + + | Author | [facility] | + + + | Organization | [facility] | + + + | Address | Unknown | + + + | Phone | Unavailable | + + + Support + + + + + | Name | Relationship | Address | Phone | + + + + + | Cecile Chowdhury | ECON | [address] | | | | | [place] [address] | | + + + + + Care Team Providers + +------+ + | Care Coil Assembler Name | Role | Phone | + +------+ + | Daniel aCnnon MD | PCP | | + +------+ + Reason for Referral Diagnostic Testing (Routine) +--------+--------+ + + + + | Status | Reason | Specialty | Diagnoses / | Referred By | Referred To | | | | | Procedures | Contact | Contact | +--------+--------+ + + + + | Closed | | Radiology | Diagnoses | Steve, | Rad Ct Scan | | | | | Malignant | Yolande | [facility] [address] | | | | | neoplasm of | E, PA-C | [address] | | | | | glottis | [address] | [facility] [place] | | | | | (HCC) | Ave | Mailcode: | | | | | Procedures | [place], [place] | [address] [facility] | | | | | CT NECK SOFT | [address] | [facility] | | | | | TISSUE W | Phone: | [place], [place] | | | | | [place] | [phone] | [address] | | | | | CT NECK | Fax: | Phone: | | | | | TISSUE | [phone] | [phone] | | | | | CONTRAST | | Fax: | | | | | | | [phone] | +--------+--------+ + + + + Reason for Visit Diagnostic Testing (Routine) +--------+--------+ + + + + | Status | Reason | Specialty | Diagnoses / | Referred By | Referred To | | | | | Procedures | Contact | Contact | +--------+--------+ + + + + | Closed | | Radiology | Diagnoses | Zochowski, | Rad Ct Scan | | | | | Malignant | Yolande | [facility] [address] | | | | | neoplasm of | E, PA-C | [address] | | | | | glottis | [address] | [facility] | | | | | (HCC) | Ave | Mailcode: | | | | | Procedures | [place], [place] | [address] [facility] | | | | | CT NECK SOFT | [address] | Hospital | | | | | TISSUE W | Phone: | [place], [place] | | | | | [place] | [phone] | [address] | | | | | CT NECK | Fax: | Phone: | | | | | TISSUE | [phone] | [phone] | | | | | CONTRAST | | Fax: | | | | | | | [phone] | +--------+--------+ + + + + Encounter Details +--------+ + + + + | Date | Type | Department | Care Team | Description | +--------+ + + + + | 05/29/ | Hospital | Diagnostic Imaging | Steve, | | | 2017 | Encounter | Services at [facility] | Yolande Casey PA-C | | | | | [address] | [address] | | | | | [place] Mailcode: | [place], [place] | | | | | [address] [facility] | [address] | | | | | [place], [place] | [phone] | | | | | [address] | | | | | | [phone] | | | +--------+ + + + [...] + + + | Blood Pressure | - | - | | + + + + + | Pulse | - | - | | + + + + + | Temperature | - | - | | + + + + + | Respiratory Rate | - | - | | + + + + + | Oxygen Saturation | - | - | | + + + + + | Inhaled Oxygen | - | - | | | Concentration | | | | + + + + + | Weight | 97.3 kg (214 lb 8.1 | 05/29/2018 1:03 PM | | | | oz) | PDT | | + + + + + | Height | - | - | | + + + + + | Body Mass Index | 27.54 | 05/17/2018 10:08 AM | | | | | PDT | | + + + + + documented in this encounter Functional Status + + + [...] + + +---------+ + + | amLODIPine 10 mg | Take 10 mg by mouth | | 0 | 01/24/20 | | | oral | once daily. | | | 18 | | | tabletIndications: | Indications: | | | | | | hypertension | hypertension | | | | | + + + +---------+ + + | clindamycin 300 mg | Take 2 capsules by | 84 | 0 | 05/29/20 | | | oral | mouth every eight | capsule | | 18 | 8 | | capsuleIndications: | hours for 14 days. | | | | | | soft tissue | Indications: skin | | | | | | infection | infection | | | | | + + + +---------+ + + documented as of this encounter Plan of Treatment +--------+---------+ + + + | Date | Type | Specialty | Care Team | Description | +--------+---------+ + + + | 03/19/ | Office | Otolaryngology | Pasquale Moscoso | | | 2020 | Visit | | MD [place] [address] [facility] | | | | | | [address] | | | | | | [place], [place] | | | | | | [address] | | | | | | [phone] | | | | | | | | +--------+---------+ + + + documented as of this encounter Procedures + +--------+ + + + | Procedure Name | Priori | Date/Time | Associated Diagnosis | Comments | | | ty | | | | + +--------+ + + + | CT NECK SOFT TISSUE | Routin | 05/29/2018 | T3N0 SCCa, right | Results for this | | W CONTRAST | e | 1:48 PM | glottis | procedure are in the | | | | PDT | | results section. | + +--------+ + + + | CREATININE, POC | Routin | 05/29/2018 | T3N0 SCCa, right | Results for this | | | e | 1:14 PM | glottis | procedure are in the | | | | PDT | | results section. 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 COMPARISON: | RECOGNITION 2 | | Outside CT 12/15/2017 TECHNIQUE: Axial CT images of the neck with | | | iodine based intravenous contrast, with sagittal and coronal | | | reformations. FINDINGS: PHARYNX/LARYNX: Postsurgical changes | | | of partial laryngectomy. SALIVARY GLANDS: Unremarkable. LYMPH | | | NODES: There are several mildly prominent right cervical chain lymph | | | nodes, likely reactive, with preservation of the fatty hilum. No | | | pathologically enlarged lymph nodes are seen. OTHER NECK SOFT | | | TISSUES: Within the anterior right neck, anteromedial to the right | | | sternocleidomastoid muscle is a mildly ill-defined rim-enhancing fluid | | | collection measuring 3.9 x 1.9 x 1.3 cm. Inferiorly, there is | | | stranding of the superficial fat but less than expected fat stranding | | | is seen along the superior margins of the presumed infectious site. | | | This raises the possibility of locally recurrent/metastatic disease | | | with superinfection. SKULL/SKULL BASE: No fractures or destructive | | | lesions. Visualized mastoids and middle ears are unremarkable. | | | PARANASAL SINUSES: Minimal scattered ethmoid air cell mucosal | | | thickening. Otherwise clear. POSTERIOR FOSSA: Visualized portions are | | | unremarkable. SPINE: Visualized portions are unremarkable. LUNG | | | APICES: Mild apical emphysematous changes. Otherwise unremarkable. | | | IMPRESSION: Mixed soft tissue and fluid density abnormality in the | | | right neck just medial to the sternocleidomastoid muscle as described | | | above. Given the patient's symptoms and physical exam, while infection | | | is a possibility, the extent of enhancing tissue and the absence of | | | adjacent inflammatory changes are primarily suspicious for a focus of | | | tumor. I have personally reviewed the images and, if necessary, | | | edited the report. I agree with the report as now presented. 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 | | COMPARISON: Outside CT 12/15/2017 TECHNIQUE: Axial CT images of the neck with iodine based | | intravenous contrast, with sagittal and coronal reformations. FINDINGS: PHARYNX/LARYNX: | | Postsurgical changes of partial laryngectomy.SALIVARY GLANDS: Unremarkable. LYMPH | | NODES: There are several mildly prominent right cervical chain lymph nodes, likely | | reactive, with preservation of the fatty hilum. No pathologically enlarged lymph nodes | | are seen.OTHER NECK SOFT TISSUES: Within the anterior right neck, anteromedial to the | | right sternocleidomastoid muscle is a mildly ill-defined rim-enhancing fluid collection | | measuring 3.9 x 1.9 x 1.3 cm. Inferiorly, there is stranding of the superficial fat but | | less than expected fat stranding is seen along the superior margins of the presumed | | infectious site. This raises the possibility of locally recurrent/metastatic disease | | with superinfection. SKULL/SKULL BASE: No fractures or destructive lesions. Visualized | | mastoids and middle ears are unremarkable.PARANASAL SINUSES: Minimal scattered ethmoid | | air cell mucosal thickening. Otherwise clear.POSTERIOR FOSSA: Visualized portions are | | unremarkable. SPINE: Visualized portions are unremarkable.LUNG APICES: Mild apical | | emphysematous changes. Otherwise unremarkable. IMPRESSION:Mixed soft tissue and fluid | | density abnormality in the right neck just medial to the sternocleidomastoid muscle as | | described above. Given the patient's symptoms and physical exam, while infection is a | | possibility, the extent of enhancing tissue and the absence of adjacent inflammatory | | changes are primarily suspicious for a focus of tumor. I have personally reviewed the | | images and, if necessary, edited the report. I agree with the report as now presented. | | Final signature: Pasquale Chandler MD 05/29/2018 4:37 PM Preliminary: Omar Gill | | 05/29/2018 4:29 PM Dictation initiated: Omar Gill MD 05/29/2018 2:17 PM | |Mixed soft tissue and fluid density abnormality in the right neck just medial to the sterno cleidomastoid muscle as described above. Given the patient's symptoms and physical exam, whi le infection is a possibility, | |the extent of enhancing tissue and the absence of adjacent inflammatory changes are primari ly suspicious for a focus of tumor. | | | |I have personally reviewed the images and, if necessary, edited the report. I agree with e report as now presented. | | | |Final signature: Pasquale Chandler MD 05/29/2018 4:37 PM | |Preliminary: Omar Gill MD 05/29/2018 4:29 PM | |Dictation initiated: Omar Gill MD 05/29/2018 2:17 PM | + + + +---------+ + + | Performing | Address | City/State/Zipcode | Phone Number | | Organization | | | | + +---------+ + + | [facility] | | | | | VOICE RECOGNITION 2 | | | | + +---------+ + + CREATININE, POC (05/29/2018 1:14 PM PDT) + +-------+ + + + | Component | Value | Ref Range | Performed | Pathologist | | | | | At | Signature | + +-------+ + + + | CREATININE, | 0.8 | 0.7 - 1.3 mg/dL | [facility] - | | | POC | | | [facility] | | | | | | [facility] | | | | | | OF CARE | | | | | | TESTS | | + +-------+ + + + + + | Specimen | + + | Blood - Blood | | (substance) | + + + + + + + | Performing | Address | City/State/Zipcode | Phone Number | | Organization | | | | + + + + + | [facility] | [address] | [place], [place] | | | [facility] | [address] | [address] | | | TESTS | | | | + + + + + documented in this encounter Visit Diagnoses + + | Diagnosis | + + | T3N0 SCCa, right glottis Malignant neoplasm of glottis | + + documented in this encounter Administered Medications + +---------+ +--------+------+------+ | Medication Order | MAR | Action | Dose | Rate | Site | | | Action | Date | | | | + +---------+ +--------+------+------+ | iohexol (OMNIPAQUE) 350 mg | IV Push | 05/29/20 | 100 mL | | | | iodine/mL injection 100 mL 100 | | 18 1:39 | | | | | mL, intravenous, ONCE, 1 dose, | | PM PDT | | | | | 05/29/18 at 1415 | | | | | | + +---------+ +--------+------+------+ +---+---+ | | | +---+---+ documented in this encounter"
--- OUTSIDE RECORDS SUMMARY | ~2019-10-09 | XMS | Encounter Summary ---
Demographics + + + | Address | [address] | | | [place] [address] | + + + | Home Phone | | + + + | Preferred Language | Unknown | + + + | Marital Status | | + + + | Confucianist Affiliation | NRP | + + + | Race | White | + + + | Ethnic Group | Not or | + + + Author + + + | Author | [facility] | + + + | Organization | [facility] | + + + | Address | Unknown | + + + | Phone | Unavailable | + + + Support + + + + + | Name | Relationship | Address | Phone | + + + + + | Cecile Chowdhury | ECON | [address] | | | | | [place] [address] | | + + + + + Care Team Providers + +------+ + | Care Combat Information Center Officer Name | Role | Phone | + +------+ + | Daniel Canonn MD | PCP | | + +------+ + Reason for Visit + + + | Reason | Comments | + + + | Neoplasm Of Larynx | | + + + Intake Referral (Routine) +--------+--------+ + + + + | Status | Reason | Specialty | Diagnoses / | Referred By | Referred To | | | | | Procedures | Contact | Contact | +--------+--------+ + + + + | Closed | | Hematology & | Diagnoses | Jonathan, | Danyel, | | | | Oncology | glottic SCC | Jorje Gonzalez, | Javier Gonzalez MD | | | | | Procedures | MD [place] | [address] | | | | | [place] NEW | [facility] | Ave | | | | | PATIENT | ENT [address] | [place], [place] | | | | | [place] | [address] | [address] | | | | | EST PATIENT | [place], | Phone: | | | | | LEVEL V | [place] [address] | [phone] | | | | | | Phone: | Fax: | | | | | | [phone] | [phone] | | | | | | Fax: | | | | | | | [phone] | | +--------+--------+ + + + + Encounter Details +--------+---------+ + + + | Date | Type | Department | Care Team | Description | +--------+---------+ + + + | 12/26/ | Office | Hematology/Medical | Javier Montaño, | Cancer of larynx | | 2018 | Visit | Oncology at Center | MD [address] | ([facility]) (Primary Dx) | | | | for Health & Healing | [place], [place] | | | | | [address] | [address] | | | | | Mailcode: [place] | [phone] | | | | | for Health and | | | | | | Healing, [address] | | | | | | [place], [place] | | | | | | [address] | | | | | | [phone] | | | +--------+---------+ + + + Social History + +-------+ +--------+ + | Tobacco Use | Types | Packs/Day | Years | Date | | | | | Used | | + +-------+ +--------+ + | Former Smoker | | | | Started: 11/30/2017 | + +-------+ +--------+ + + +---+---+---+ | Smokeless Tobacco: | | | | | Never Used | | | | + +---+---+---+ + + +---------+ + | Alcohol Use | Drinks/Week | oz/Week | Comments | + + +---------+ + | Yes | | | | + + +---------+ + [...] + + + | Blood Pressure | 122/75 | 12/26/2017 11:27 AM | | | | | PDT | | + + + + + | Pulse | 84 | 12/26/2017 11:27 AM | | | | | PDT | | + + + + + | Temperature | 36.6 C (97.9 F) | 12/26/2017 11:27 AM | | | | | PDT | | + + + + + | Respiratory Rate | 16 | 12/26/2017 11:27 AM | | | | | PDT | | + + + + + | Oxygen Saturation | 98% | 12/26/2017 11:27 AM | | | | | PDT | | + + + + + | Inhaled Oxygen | - | - | | | Concentration | | | | + + + + + | Weight | 104.1 kg (229 lb 8 | 12/26/2017 11:27 AM | | | | oz) | PDT | | + + + + + | Height | 188 cm (6' 2") | 12/26/2017 11:27 AM | | | | | PDT | | + + + + + | Body Mass Index | 29.47 | 12/26/2017 11:27 AM | | | | | PDT | | + + + + + documented in this encounter Progress Notes Javier Montaño MD - 12/29/2017 1:06 AM PDTConsulting Physician:Javier Montaño MD Consultation Date:12/26/2017 Referring Physician: History Of Present Illness: Mr. 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 Mr. Chowdhury reports that starting in 2016, he detected some hoarseness of voice. At the time, he thought it was a common cold; however, this persisted after the symptoms of cold had resolved. He [facility] who referred him to a local ENT surgeon. The patient was seen by Dr. Colt Joyce at [place] in [facility] and had a direct laryngoscopy, was found t o have a thickened right true vocal cord, and initially was treated conservatively with voic e rest and proton pump inhibitors; however, this treatment failed to bring any improvement i n his hoarseness of voice. The patient underwent a repeat flexible laryngoscopy on November 09, and this time he was found to have a fungating lesion on the upper surface of the righ t true vocal cord, so on November 29, 2017, he had a micro direct laryngoscopy with biopsy o btained from the right true vocal cord. 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 He also had a CT scan of the neck and [address] dated December 15, 2017, that failed to detect cervical lymph node involvement or distant dis ease to the chest. In the clinic today, Mr. Chowdhury has been accompanied by his . He sti ll has a significant degree of hoarseness of voice, but remains otherwise asymptomatic, able to eat and drink without much difficulty. There is no stridor and weight has been stable. Social History: The patient is , lives at home with his in [place], [place]. He is a lifelong smoker. He started smoking at age 14, continues to smoke until today. On , he smokes 1 pack a day, although he reports he tried to quit smoking multiple times w ith little success. 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 Past Medical History: Significant for: 1.Hypertension. 2.Hemochromatosis requiring frequent blood letting. 3.COPD/asthma. Past Surgical History: Significant for history to repair deviated nasal septum and liver b iopsy to establish the diagnosis of hemochromatosis. Family History: Significant for COPD. Physical Examination: GENERAL: Reveals a pleasant patient in no apparent distress. VITAL SIGNS: Stable. ECOG performance status 0. HEENT: Negative scleral icterus. Cranial ner ves II through XII intact. Oral cavity shows moist mucous membrane. Dentition in good repa ir. No visible lesions. Tongue is soft and freely mobile. No visible lesions or ulcers. Negative cervical adenopathy. CHEST: Clear to auscultation bilaterally. CARDIAC: Regular rate and rhythm. No murmur. ABDOMEN: No hepatosplenomegaly. LOWER EXTREMITIES: No deshaun a bilaterally. NEURO: Grossly nonfocal. Imaging Studies: Include CT scan of the neck and chest from December 15 that failed to detec t any evidence of metastatic disease. Pathology: From the right true vocal cord biopsy from November 29 reveals invasive squam ous cell cancer of the larynx. Impression And Plan: A 47-year-old patient with what appears to be an early-stage squamous cell cancer of the right true vocal cord, here for discussion about treatment. I recommend ed to him that given his excellent overall health and the apparently limited stage of the di sease, he ought to consider definitive surgical resection, and as a result, we will refer jered m to Dr. Pasquale Moscoso from our ENT department for a discussion about definitive surgical resection of the tumor. It is conceivable that he might require adjuvant postoperative rad iation depending on the extent of his disease. I will follow up with the patient on an as-n eeded basis, and for now he will be contacted from Dr. Moscoso's office for a new consult. I spent 45 minutes with the patient and his . All of their questions were answered. M ore than 50% of my time was spent in cpby-ny-cgvw counseling with the patient, as well as co ordination of care. Javier Montaño MD SAMIA/MODL /[id number] signed by Javier Montaño MD at 12/29/2017 12:55 PM PDTdocumented in this encounter Plan of Treatment +--------+---------+ + + + | Date | Type | Specialty | Care Team | Description | +--------+---------+ + + + | 03/19/ | Office | Otolaryngology | Pasquale Moscoso | | | 2020 | Visit | | MD [place] [address] [facility] | | | | | | [address] | | | | | | [place], [place] | | | | | | [address] | | | | | | [phone] | | | | | | | | +--------+---------+ + + + documented as of this encounter Visit Diagnoses + + | Diagnosis | + + | 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
--- OUTSIDE RECORDS SUMMARY | ~2019-10-09 | XMS | Encounter Summary ---
Demographics + + + | Address | [address] | | | [place] [address] | + + + | Home Phone | | + + + | Preferred Language | Unknown | + + + | Marital Status | | + + + | Yarsanism Affiliation | NRP | + + + | Race | White | + + + | Ethnic Group | Not or | + + + Author + + + | Author | [facility] | + + + | Organization | [facility] | + + + | Address | Unknown | + + + | Phone | Unavailable | + + + Support + + + + + | Name | Relationship | Address | Phone | + + + + + | Cecile Chowdhury | ECON | [address] | | | | | [place] [address] | | + + + + + Care Team Providers + +------+ + | Care Shoe Shanker Name | Role | Phone | + [...] | | | | | Procedures | [place], [place] | [address] | | | | | CT NECK SOFT | [address] | [facility] | | | | | TISSUE W | Phone: | [place], [place] | | | | | [address] | [phone] | [address] | | | | | CT NECK | Fax: | Phone: | | | | | TISSUE | [phone] | [phone] | | | | | CONTRAST | | Fax: | | | | | | | [phone] | +--------+--------+ + + + + Encounter Details +--------+ + + + + | Date | Type | Department | Care Team | Description | +--------+ + + + + | 05/26/ | Telephone | Otolaryngology | Pasquale Moscoso | | | 2018 | | Laryngology Services | MD [place] [address] | | | | | at [facility] [address] | | | | | [address] | [place], [place] | | | | | Mailcode: [place] | [address] | | | | | [facility] | [phone] | | | | | [place], [place] | | | | | | [address] | | | | | | [phone] | | | +--------+ + + + [...] | 03/19/ | Office | Otolaryngology | Psaquale Moscoso | | | 2020 | Visit | | MD [place] [address] [facility] | | | | | | [address] | | | | | | [place], [place] | | | | | | [address] | | | | | | [phone] | | | | | | | | +--------+---------+ + + + documented as of this encounter Results CT NECK SOFT TISSUE [...]
--- OUTSIDE RECORDS SUMMARY | ~2019-10-09 | XMS | Encounter Summary ---
Demographics + + + | Address | [address] | | | [place] [address] | + + + | Home Phone | | + + + | Preferred Language | Unknown | + + + | Marital Status | | + + + | Hindu Affiliation | Unknown | + + + | Race | Unknown | + + + | Ethnic Group | Unknown | + + + Author + + + | Author | [facility] | | | and [place] | + + + | Organization | [facility] | | [...] Team Providers + +------+ + | Care Light Technician Name | Role | Phone | + +------+ + | Daniel Cannon MD | PCP | | + +------+ + Reason for Visit + + + | Reason | Comments | + + + | Medication Refill | | + + + Encounter Details +--------+--------+ + + + | Date | Type | Department | Care Team | Description | +--------+--------+ + + + | 04/08/ | Refill | [facility] | [place], | Medication Refill | | 2013 | | PULMONARY [address] | Latisha Dominguez MD | | | | | [place], | | | | | | [place] [address] | | | | | | [phone] | | | +--------+--------+ + + + Social History + + [...] [place] | | | | | | [place] | | | | | | [address] | | | | | | | | +--------+ + + + + documented as of this encounter Visit Diagnoses Not on filedocumented in this encounter"
--- OUTSIDE RECORDS SUMMARY | ~2019-10-09 | XMS | Encounter Summary ---
Demographics + + + | Address | [address] | | | [place] [address] | + + + | Home Phone | | + + + | Preferred Language | Unknown | + + + | Marital Status | | + + + | Catholic Affiliation | NRP | + + + | Race | White | + + + | Ethnic Group | Not or | + + + Author + + + | Author | [facility] | + + + | Organization | [facility] | + + + | Address | Unknown | + + + | Phone | Unavailable | + + + Support + + + + + | Name | Relationship | Address | Phone | + + + + + | Cecile Chowdhury | ECON | [address] | | | | | [place] [address] | | + + + + + Care Team Providers + +------+ + | Care Chief Program Officer Name | Role | Phone | + +------+ + | Daniel Cannon MD | PCP | | + +------+ + Reason for Visit Speech Therapy (Routine) +--------+--------+ + + + + | Status | Reason | Specialty | Diagnoses / | Referred By | Referred To | | | | | Procedures | Contact | Contact | +--------+--------+ + + + + | Closed | | Speech | | [place], | Ent Speech | | | | Therapy | | Javier Gonzalez MD | [facility] [address] | | | | | | [address] | | | | | | [address] | Mailcode: | | | | | | [place], [place] | [address] [place] | | | | | | [address] | [facility] | | | | | | Phone: | and Healing, | | | | | | [phone] | [address], | | | | | | Fax: | 15th Floor | | | | | | [phone] | [place], [place] | | | | | | | [address] | | | | | | | Phone: | | | | | | | [phone] | | | | | | | Fax: | | | | | | | [phone] | +--------+--------+ + + + + Encounter Details +--------+ + + + + | Date | Type | Department | Care Team | Description | +--------+ + + + + | 03/15/ | Diagnostic | Otolaryngology | Steven Vidal, | | | 2018 | Visit | Speech Therapy | FINANCIAL SERVICES REPRESENTATIVE [address] | | | | | Services at [facility] | [facility] | | | | | [address] | [place] [address] | | | | | Loop Mailcode: [address] | [phone] | | | | | Physician's | | | | | | [place], | | | | | | [place] [address] | | | | | | [phone] | | | +--------+ + + + [...] + + + + | Weight | 95.3 kg (210 lb) | 03/15/2018 11:50 AM | | | | | PDT | | + + + + + | Height | - | - | | + + + + + | Body Mass Index | 26.96 | 01/16/2018 6:00 AM | | | | | PDT [...] documented as of this encounter Progress Notes Steven Vidal, FINANCIAL SERVICES REPRESENTATIVE - 03/15/2018 11:00 AM PDTFormatting of this note might be different fro m the original. Clinic: [facility] Referring Physician: Pasquale Moscoos MD PCP: Daniel Cannon MD Medical Diagnosis: 1. T3N0 SCCa, right glottis 2. Dysphonia 3. Dysphagia, pharyngeal phase 4. Attention to tracheostomy (HCC) Date of Onset for This Diagnosis: 01/16/18 Treatment Diagnosis: 1. T3N0 SCCa, right glottis 2. Dysphonia 3. Dysphagia, pharyngeal phase 4. Attention to tracheostomy (HCC) Start of Care Date: 02/06/2018 Duration of session: 30 minutes SUBJECTIVE: Ronni Chowdhury is a 47 y[address] male of Dr. Moscoso who is familiar to our servic e from pre-operative evaluation and voice evaluation. INTERVAL HISTORY: No new issues. Trach site closed. Has weaned off TFs. Initially some weig ht loss - now stable. Reports "eating anything" with no s/s of aspiration. No change in spee d of intake. Back at work - voice functional on phone and in quiet office. Has noted voice i mprovement. No new concerns. The patient attends today's visit with his , Cecile. The patient is now s/p the following on 01/16/18: direct microlaryngoscopy, upper GI endoscop y with percutaneous endogastric tube placement, supracricoid partial laryngectomy sparing le ft arytenoid, cricohyoidoepiglottopexy, right modified radical neck dissection, tracheotomy tube placement. Per the DC summary: Brief Hospital Course: The patient was taken to the OR on 01/16/2018 for the above procedures . During the procedure, no complications were noted. At the end of the procedure, appropriat e drains were placed, the patient was extubated, and transferred to the post-anesthesia care unit. Once recovered, the patient was transferred to the post-surgical hill where he remain ed for the rest of the hospitalization. His post-operative course was complicated by alcohol withdrawal (CIWA protocol, resolved), and acute on chronic pain (close follow up with his [facility] doctor). The patient had stable respiratory status on 3 Liters of supplement O2 (provided at [facility]). The patient was evaluated by speech language pathology who made recommendations regardi ng communication and diet. Nutrition evaluated the patient and recommended a tube feed regim en. Physical therapy and occupational therapy both evaluated the patient and determined the patient to be stable for ambulation with assist as needed. The surgical incisions remained c lean, dry, and intact. By date of discharge patient was tolerating tube feeds without abdomi nal pain, nausea or vomiting. Neck drain removed without complications. Switched to a 6 CFS. The patient's pain was controlled with oral medications. Patient discharged home and he was informed on appropriate follow-up care. 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 Castillo-- SCCa right vocal fold confirmed, p16(-) Deviated nasal septum repair 2006 Liver biopsy 11/2016 Percutaneous placement of gastrostomy tube 01/16/2018 Dr. Moscoso-- 20 Fr. Ponsky Modified radical neck dissection Right 01/16/2018 Dr. Moscoso-- Levels IIa-IV Tracheotomy 01/16/2018 Dr. Moscoso-- #8 DCT Shiley Supracricoid partial laryngectomy Right 01/16/2018 Dr. Moscoso-- left arytenoid spared Cricohyoidoepiglottopexy 01/16/2018 Dr. Moscoso Wt Readings from Last 3 Encounters: 03/15/18 95.3 kg (210 lb) 03/15/18 95.3 kg (210 lb) 02/06/18 97.5 kg (214 lb 14.4 oz) COMMUNICATION STATUS: Voice rough and reduced in intensity but functional for communication in quiet setting. Patient noted that his voice is adequate for his day at work. Does not lo se voice by end of day. Functional on phone. DIETARY STATUS: Has discontinued TFs. Has resumed a full oral diet. Regular diet with any l iquids. PSS Speech and Swallowing Scales: PSS-Speech score: Always understandable (PSS-Speech 100). PSS-Normalcy of Diet score: 100, full diet (no restrictions). PSS-Eating in Public score: 100, no restriction of place, food, or manager dish. Functional Oral Intake Scale (FOIS) TUBE DEPENDENT (levels 1-3) Level 1: Nothing by mouth. Level 2: Tube dependent with minimal attempts of food or liquid. Level 3: Tube dependent with consistent oral intake of food or liquid. TOTAL ORAL INTAKE (levels 4-7) Level 4: Total oral diet of a single consistency. Level 5: Total oral diet with multiple consistencies, but requiring special preparation or compensations. Level 6: Total oral diet with multiple consistencies without special preparation, but with specific food limitations. Level 7: Total oral diet with no restrictions. CLINICAL SWALLOW TRIALS: Assessed with water (4 oz), fruit cocktail (2 oz), sonja cracker (2 oz). Pt ate all consistencies in a timely manner with no significant s/s of aspiration. PATIENT EDUCATION & TREATMENT: Home exercise program reviewed, namely: 1. Sustained phonation x 10 2. Pitch glides x 10 3. Adduction with grunt x 10 (pt struggles to get a complete breath-hold) Home exercise program encouraged for ongoing improvement. ASSESSMENT: 1. Pt has resumed a full oral diet without restrictions. Weight stable and off G-tube feedi ngs. 2. Back at work and using voice throughout the day. Remains dysphonic but voice functional over phone and in quiet background. PLAN: Likely G-tube removal today. Pt advised to continue home therapy program. Should foll ow-up with Dr. Moscoso for Oncology monitoring. Happy to see in conjunction PRN. Steven Vidal, PhD, CCC-FINANCIAL SERVICES REPRESENTATIVE [facility] Dept. of Otolaryngology, - [address] [place] [address] documented in this en counter Plan of Treatment +--------+---------+ + + + | Date | Type | Specialty | Care Team | Description | +--------+---------+ + + + | 03/19/ | Office | Otolaryngology | Pasquale Moscoso | | | 2019 | Visit | | MD [place] [address] | | | | | | [address] | | | | | | [place], [place] | | | | | | [address] | | | | | | [phone] | | | | | | | | +--------+---------+ + + + documented as of this encounter Procedures + +--------+ + + + | Procedure Name | Priori | Date/Time | Associated Diagnosis | Comments | | | ty | | | | + +--------+ + + + | HI ORAL FUNCTION | Routin | 03/15/2018 | T3N0 SCCa, right | | | THERAPY | e | 5:18 PM | glottis Dysphonia | | | | | PDT | Dysphagia, | | | | | | pharyngeal phase | | + +--------+ + + + documented in this encounter Visit Diagnoses + + | Diagnosis | + + | T3N0 SCCa, right glottis - Primary Malignant neoplasm of glottis | + + | Dysphonia | + + | Dysphagia, pharyngeal phase | + + documented in this encounter
--- OUTSIDE RECORDS SUMMARY | ~2019-10-09 | XMS | Encounter Summary ---
Demographics + + + | Address | [address] | | | [place] [address] | + + + | Home Phone | | + + + | Preferred Language | Unknown | + + + | Marital Status | | + + + | Holiness Affiliation | Unknown | + + + [...] Team Providers + +------+ + | Care Electric Installer Name | Role | Phone | + +------+ + | Daniel Cannon MD | PCP | | + +------+ + Reason for Visit + + + | Reason | Comments | + + + | Under Treatment | | + + + Encounter Details +--------+ + + + + | Date | Type | Department | Care Team | Description | +--------+ + + + + | 08/17/ | Hospital | [facility] | Naida Burnette | Malignant neoplasm | | 2018 | Encounter | [facility] | MD Brad [address] | of glottis (HCC) | | | | ONCOLOGY CLINIC [address] | [place], [place] | (Primary Dx) | | | | [address] | [address] | | | | | [place] [address] | | | | | | [phone] | | | +--------+ + + + [...] + + + | Blood Pressure | 136/94 | 08/17/2018 10:15 AM | | | | | PDT | | + + + + + | Pulse | 110 | 08/17/2018 10:15 AM | | | | | PDT | | + + + + + | Temperature | 36.6 C (97.9 F) | 08/17/2018 10:15 AM | | | | | PDT | | + + + + + | Respiratory Rate | 16 | 08/17/2018 10:15 AM | | | | | PDT | | + + + + + | Oxygen Saturation | 97% | 08/17/2018 10:15 AM | | | | | PDT | | + + + + + | Inhaled Oxygen | - | - | | | Concentration | | | | + + + + + | Weight | 97.9 kg (215 lb 13.3 | 08/17/2018 10:15 AM | | | | oz) | PDT | | + + + + + | Height | - | - | | + + + + + | Body Mass Index | 27.7 | 07/19/2018 12:34 PM | | | | | PDT | | + + + + + documented in this encounter Medications at Time of Discharge [...] documented as of this encounter Progress Notes Naida Burnette MD - 08/17/2018 10:19 AM PDT Radiation Oncology Weekly On Treatment Note Diagnosis: ICD-10-CM ICD-9-CM 1. 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 Corre ctions were applied as necessary. No Known Allergies Current Outpatient Prescriptions on File Prior to Encounter Medication Sig Dispense Refill ADVAIR DISKUS 500-50 MCG/DOSE diskus inhaler inhale 1 puff by mouth INTO THE LUNGS 2 TI MES DAILY (Patient not taking: Reported on 07/19/2018) 60 each 11 amLODIPine (NORVASC) 10 MG tablet Take by mouth Daily. gabapentin (NEURONTIN) 300 mg capsule Take by mouth 3 times daily as needed. oxyCODONE (ROXICODONE) 5 mg tablet Take 5 mg by mouth every 4 hours as needed. Take 1-3 tablets every 4 hours as needed. PROAIR HFA 108 (90 BASE) MCG/ACT inhaler inhale 2 puffs by mouth INTO THE LUNGS EVERY 4 HOURS NEEDED FOR WHEEZING 8.5 g 6 sildenafil (VIAGRA) 100 MG tablet Take 100 mg by mouth as needed for Erectile Dysfuncti on. Take 1 tablet by mouth daily 1 hour before if needed. No current facility-administered medications on file prior to encounter. 08/17/18 1018 Gastrointestinal Constipation 0 - Grade 0 Diarrhea 0 - Grade 0 Nausea 0 - Grade 0 Vomiting 0 - Grade 0 General Disorders and Administration Site Conditions Fatigue 1 - Grade 1 Metabolism and Nutrition Anorexia 1 - Grade 1 Performance Status Karnofsky Performance Score 90% Pain assessment: Location: throat Pain Level: PAIN PROG PAIN LEVEL: 3 Pain Quality: Stable Current pain regimen: oxycodone 5 mg BID Wt Readings from Last 3 Encounters: 08/17/18 97.9 kg (215 lb 13.3 oz) 08/10/18 98.6 kg (217 lb 6 oz) 08/03/18 98.8 kg (217 lb 13 oz) Vitals: 08/17/18 1015 BP: (!) 136/94 Pulse: 110 Resp: 16 Temp: 36.6 C (97.9 F) TempSrc: Temporal SpO2: 97% Weight: 97.9 kg (215 lb 13.3 oz) Physical Exam Constitutional: He appears well-developed and well-nourished. Neurological: He is alert. Skin: No rash noted. There is erythema (Faint skin erythema). Psychiatric: He has a normal mood and affect. Physician Assessment: Ronni continues to use Ativan daily for tolerating the mask. He continues to have mild pa in in the throat, largely stable since surgery. Takes oxycodone twice a day for management. He is able to eat normally. Weight is down 2 pounds this week. Encouraged him to focus o n adequate nutrition and hydration. Mild skin erythema and neck edema. Discussed gentle ma ssage techniques and skin care with emollient lotion. Toxicities reviewed in nursing note. Disposition: Continue radiation treatment as planned. 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
--- OUTSIDE RECORDS SUMMARY | ~2019-10-09 | XMS | Encounter Summary ---
Demographics + + + | Address | [address] | | | [place] [address] | + + + | Home Phone | | + + + | Preferred Language | Unknown | + + + | Marital Status | | + + + | Holiness Affiliation | NRP | + + + | Race | White | + + + | Ethnic Group | Not or | + + + Author + + + | Author | [facility] | + + + | Organization | [facility] | + + + | Address | Unknown | + + + | Phone | Unavailable | + + + Support + + + + + | Name | Relationship | Address | Phone | + + + + + | Cecile Chowdhury | ECON | [address] | | | | | [place] [address] | | + + + + + Care Team Providers + +------+ + | Care Orthoptist Name | Role | Phone | + +------+ + | Daniel Cannon MD | PCP | | + +------+ + Reason for Visit AUTH/CERT +--------+--------+ + + + + | Status | Reason | Specialty | Diagnoses / | Referred By | Referred To | | | | | Procedures | Contact | Contact | +--------+--------+ + + + + | | | | | | | +--------+--------+ + + + + Encounter Details +--------+ + + + + | Date | Type | Department | Care Team | Description | +--------+ + + + + | 01/16/ | Anesthesia | 6A Intra Op [id number] | Veronica Flowers | | | 2018 | Event | [address] | MD [place] [address] | | | | | [facility] | [address] | | | | | Hospital Admitting | [place], [place] | | | | | Desk Located on the | [address] | | | | | 9th floor | [phone] | | | | | [place], [place] | | | | | | [address] | Nelli Soliman | | | | | | MD [place] [address] | | | | | | [address] | | | | | | [place], [place] | | | | | | [address] | | | | | | [phone] | | | | | | | | +--------+ + + + + Anesthesia Record + + + + + | Procedure Name | Responsible | Anesthesia Start | Anesthesia Stop Time | | | Anesthesiologist | Time | | + + + + + | RIGHT DIRECT | Veronica Little Kristie, | 01/16/18 0830 | 01/16/18 090 | | MICROLARYNGOSCOPY; | MD | | | | (Right Mouth) | | | | + + + + + +----+---+ + + | Da | T | Event | Comment | | te | i | | | | | m | | | | | e | | | +----+---+ + + | 04 | 0 | Eq Check | Anesthesia machine checked Equipment verified | | /0 | 6 | | | | 2/ | 5 | | | | 20 | 5 | | | | 18 | | | | +----+---+ + + | | 0 | Pt. Check | Prior to anesthesia start, pt. Identified, examined, chart | | | 8 | | reviewed, PARQ held, anesthetic plan made or approved by | | | 2 | | attending anesthesiologist. NPO status confirmed as appropriate | | | 6 | | for procedure Preoperative evaluation: unchanged | +----+---+ + + | | 0 | Preprocedur | Pt ID confirmed, informed consent obtained, insertion site | | | 8 | e Checklist | marked, equipment available | | | 2 | | | | | 7 | | | +----+---+ + + | | 0 | An Start | | | | 8 | | | | | 3 | | | | | 0 | | | +----+---+ + + | | 0 | An Start | | | | 8 | Data | | | | 3 | | | | | 1 | | | +----+---+ + + | | 0 | Vitals | Monitors applied Vital signs checked Patient ready for anesthesia | | | 8 | Checked | | | | 3 | | | | | 5 | | | +----+---+ + + | | 0 | ETT | | | | 8 | | | | | 5 | | | | | 1 | | | +----+---+ + + | | 0 | Quick Note | | | | 9 | | | | | 0 | | | | | 0 | | | +----+---+ + + | | 0 | Ready | | | | 9 | | | | | 0 | | | | | 0 | | | +----+---+ + + | | 0 | Art Line | | | | 9 | | | | | 0 | | | | | 0 | | | +----+---+ + + | | 0 | Timeout | | | | 9 | | | | | 1 | | | | | 0 | | | +----+---+ + + | | 0 | Abx | | | | 9 | Administere | | | | 1 | d | | | | 0 | | | +----+---+ + + | | 0 | Quick Note | Start of microlaryngoscopy | | | 9 | | | | | 1 | | | | | 2 | | | +----+---+ + + | | 0 | Incision | | | | 9 | | | | | 1 | | | | | 2 | | | +----+---+ + + | | 0 | Quick Note | Microlaryngoscopy complete. PEG procedure started | | | 9 | | | | | 2 | | | | | 1 | | | +----+---+ + + | | 0 | Local | | | | 9 | Anesthetic | | | | 4 | by Surgeon | | | | 9 | | | +----+---+ + + | | 1 | Quick Note | Incision for neck dissection | | | 0 | | | | | 1 | | | | | 2 | | | +----+---+ + + | | 1 | Quick Note | TRACHEOSTOMY | | | 4 | | | | | 3 | | | | | 7 | | | +----+---+ + + | | 1 | Quick Note | ETT tube removed and replaced by surgeon. | | | 5 | | | | | 3 | | | | | 4 | | | +----+---+ + + | | 1 | Quick Note | | | | 5 | | | | | 3 | | | | | 4 | | | +----+---+ + + | | 1 | An Data Art | Art line damp.-line flushed. NIBP cuff cycled in the interim Q 3 | | | 6 | | minutes while troubleshooting art line | | | 0 | | | | | 0 | | | +----+---+ + + | | 1 | Quick Note | ETT removed and replaced by surgeon | | | 6 | | | | | 0 | | | | | 4 | | | +----+---+ + + | | 1 | Surgery end | | | | 7 | | | | | 3 | | | | | 5 | | | +----+---+ + + | | 1 | an stop | | | | 7 | data | | | | 4 | | | | | 3 | | | +----+---+ + + | | 1 | PACU Rpt | | | | 7 | Given | | | | 5 | | | | | 2 | | | +----+---+ + + | | 1 | Anesthesia | | | | 7 | End | | | | 5 | | | | | 2 | | | +----+---+ + + +------+ | Meds | +------+ + + + | Name | Total | + + + | midazolam | 2 mg | + + + | fentaNYL | 250 mcg | + + + | lidocaine 2% | 100 mg | + + + | propofol | 400 mg | + + + | rocuronium | 200 mg | + + + | ePHEDrine | 5 mg | + + + | PHENYLEPHrine | 550 mcg | + + + | dexamethasone | 8 mg | + + + | ondansetron | 4 mg | + + + | glycopyrrolate | 0.4 mg | + + + | neostigmine | 2 mg | + + + | ampicillin- sulbactam | 6 g | + + + | dexmedetomidine INF (4 mcg/mL) | 267.97 mcg | + + + | SUFentanil | 100 mcg | + + + | PHENYLEPHrine INF (50 mg/250 mL) | 7,313 mcg | + + + | LR | 3,800 mL | + + + + + | Name | + + | O2 FR Avance (Total Liters) | + + | N2O FR Avance (l/min) | + + | Air FR Avance (l/min) | + + | Insp Sevo | + + | Et Sevo | + + | Insp Iso | + + | Et Iso | + + | EtN2O % | + + | Insp N2O % | + + + + | No blood administrations on file. | + + +--------+ + + + | Type | Details | Placement | Removal | +--------+ + + + | Feedin | 01/16/18; 1003; JS; PEG tube | 01/16/183 by | | | g Tube | [...] +--------+ + + + | Periph | 01/16/18; 0633; Left; Hand; 20 g; | 01/16/18 0633 by | 01/18/18 1334 by | | eral | Lidocaine; Positive; 01/18/18; | Claudia Lara RN | Ling Farah RN | | IV | 1334; Per patient/family request | | | +--------+ + + + | Urethr | 01/16/18; 0850; KI; Frederick; 16 | 01/16/18 0850 by | 01/17/18 0646 by | | al | Fr.; 10 mL; 01/17/18; 0646; Per | Peace Dunne RN | Nicole Villalobos RN | | Cathet | order | | | | er | | | | +--------+ + + + | Periph | 01/16/18; 0910; Right; Dorsal; | 01/16/18909 by | 01/16/182351 by | | eral | Hand; 16 g; 01/16/18; 2351; No | Nelli Soliman, | Maximilian Rascon RN | | IV | longer present | MD | | +--------+ + + + | Drain | 01/16/18; 1559; MD Blanka; DERRICK | 01/16/18 1559 by | 01/20/18 1433 by | | | (10Fr); Left; neck; 2; 01/20/18; | Lorna Villeda RN | Ling Farah RN | | | 1433; Per protocol (removed by | | | | | Shannon from ENT team) | | | +--------+ + + + documented in this encounter Social History + +-------+ +--------+ + | [...] | Visit | | MD Sidney [address] [facility] | | | | | | [address] | | | | | | [place], [place] | | | | | | [address] | | | | | | [phone] | | | | | | | | +--------+---------+ + + + documented as of this encounter Procedures + +--------+ + + + | Procedure Name | Priori | Date/Time | Associated Diagnosis | Comments | | | ty | | | | + +--------+ + + + | ANE ART LINE | Routin | 01/16/2018 | | Results for this | | | e | 4:36 PM | | procedure are in the | | | | PDT | | results section. | + +--------+ + + + | QUENTIN EDNAT | Routin | 01/16/2018 | | Results for this | | | e | 4:33 PM | | procedure are in the | | | | PDT | | results section. | + +--------+ + + + documented in this encounter Results QUENTIN JULISA LINE (01/16/2018 4:36 PM PDT) + + + | Narrative | Performed At | + + + | Nelli Soliman MD 01/16/2018 9:37 AM Procedure ART | | | LINE Procedure Information Inserted: After Induction 5 minutes to | | | perform. Type Catheter: Arrow kit Indications: Beat to beat blood | | | pressure monitoring Location Performed: [place] Informed Consent: | | | Included in anesthesia consent Protective Barrier: Cap, Mask, Hand | | | scrub and Sterile Gloves Skin Prep: Chloraprep Draped: Partially | | | draped Anesthesia Method: General anesthesia Insertion side: Left | | | Insertion Site: Radial Access device: 20g Line secured by:Tape, | | | Dressing Applied and StatLock Assessment Number of | | | attempts: 1st Complications: None Assessment: Catheter connected to | | | pressure line and flushed, catheter manually flushed, Tolerated | | | procedure well and Perfusion checked distal to catheter Attending | | | physically present Attending Name: KRISTIE, VERONICA S | | | Performed by Resident Name: NELLI SOLIMAN | | + + + ANE ETT (01/16/2018 4:33 PM PDT) + + + | Narrative | Performed At | + + + | Nelli Soliman MD 01/16/2018 9:36 AM Procedure Reason | | | for Intubation: For surgical procedure, Location Performed: [place] , | | | Patient was preoxygenated Mask Ventilation Grade 2 - Ventilated by | | | mask with oral airway/adjuvant Intubation Blade type: Jean-Paul , | | | Blade size: 4, Atraumatic laryngoscopy: Atraumatic Laryngoscopy, | | | Intubation adjuncts: N/A , Laryngoscopic view: Grade I, Fiberoptics | | | used: N/A , Number of Attempts: 1, Positive for EtCO2: Yes, Breath | | | sounds: Bilateral and equal ETT Ett Adult: Single-lumen | | | cuffed ETT Size: 6 Depth at Lip: 23 Cm Airway leak: No | | | Narrative Attending physically present Performed by Resident | | | BMV with OPA. Grade 1 view with MAC 4 blade. Atraumatic intubation. | | | | | + + + documented in this encounter Visit Diagnoses Not on filedocumented in this encounter Administered Medications + +--------+ +------+------+------+ | Medication Order | MAR | Action | Dose | Rate | Site | | | Action | Date | | | | + +--------+ +------+------+------+ | ampicillin-sulbactam (UNASYN) | Given | 01/17/20 | 3 g | | | | injection intravenous, | | 18 3:35 | | | | | INTRAPROCEDURE PRN, Starting Mon | | PM PDT | | | | | 01/16/18 at 0930, Until 01/16/18 | | | | | | | at 1743 | | | | | | + +--------+ +------+------+------+ +-------+ +-----+---+---+ | Given | 01/17/20 | 3 g | | | | | 18 9:10 | | | | | | AM PDT | | | | +-------+ +-----+---+---+ +---+---+ | | | +---+---+ + +-------+ +------+---+---+ | dexamethasone (DECADRON) | Given | 01/17/20 | 8 mg | | | | injection intravenous, | | 18 9:00 | | | | | INTRAPROCEDURE PRN, Starting Mon | | AM PDT | | | | | 01/16/18 at 0900, Until 01/16/18 | | | | | | | at 1743 | | | | | | + +-------+ +------+---+---+ +---+---+ | | | +---+---+ + + + + +--------+---+ | dexmedetomidine (PRECEDEX) IV | Restarte | 01/17/20 | 0.5 | 12.88 | | | infusion INTRAPROCEDURE | d | 18 1:44 | mcg/kg/h | mL/hr | | | CONTINUOUS PRN, Starting Mon | | PM PDT | r | | | | 01/16/18 at 0853, Until 01/16/18 | | | | | | | at 1743 | | | | | | + + + + +--------+---+ + + + +-------+---+ | Rate/Dose Change | 01/17/20 | 0.4 | 10.3 | | | | 18 11:28 | mcg/kg/h | mL/hr | | | | AM PDT | r | | | + + + +-------+---+ | Rate/Dose Change | 01/17/20 | 0.2 | 5.15 | | | | 18 11:09 | mcg/kg/h | mL/hr | | | | AM PDT | r | | | + + + +-------+---+ +---+---+ | | | +---+---+ + +-------+ +------+---+---+ | ePHEDrine injection | Given | 01/17/20 | 5 mg | | | | intravenous, INTRAPROCEDURE PRN, | | 18 10:36 | | | | | Starting Tue01/16/18 at 1036, | | AM PDT | | | | | Until Tue01/16/18 at 1743 | | | | | | + +-------+ +------+---+---+ +---+---+ | | | +---+---+ + +-------+ +---------+---+---+ | fentaNYL citrate (PF) | Given | 01/17/20 | 100 mcg | | | | (SUBLIMAZE) injection | | 18 9:15 | | | | | intravenous, INTRAPROCEDURE PRN, | | AM PDT | | | | | Starting Tue01/16/18 at 0915, | | | | | | | Until Tue01/16/18 at 1743 | | | | | | + +-------+ +---------+---+---+ +-------+ +---------+---+---+ | Given | 01/17/20 | 50 mcg | | | | | 18 9:10 | | | | | | AM PDT | | | | +-------+ +---------+---+---+ | Given | 01/17/20 | 100 mcg | | | | | 18 8:50 | | | | | | AM PDT | | | | +-------+ +---------+---+---+ +---+---+ | | | +---+---+ + +-------+ +--------+---+---+ | glycopyrrolate (ROSA) | Given | 01/17/20 | 0.4 mg | | | | injection intravenous, | | 18 4:42 | | | | | INTRAPROCEDURE PRN, Starting Mon | | PM PDT | | | | | 01/16/18 at 1642, Until 01/16/18 | | | | | | | at 1743 | | | | | | + +-------+ +--------+---+---+ +---+---+ | | | +---+---+ + + + +---+---+---+ | lactated Ringers IV | given by | 01/17/20 | | | | | intravenous, INTRAPROCEDURE | | 18 5:15 | | | | | CONTINUOUS PRN, Starting Mon | anesthes | PM PDT | | | | | 01/16/18 at 0830, Until 01/16/18 | iology | | | | | | at 1743 | | | | | | + + + +---+---+---+ + + +---+---+---+ | given by anesthesiology | 01/17/20 | | | | | | 18 4:50 | | | | | | PM PDT | | | | + + +---+---+---+ | New Bag | 01/17/20 | | | | | | 18 1:22 | | | | | | PM PDT | | | | + + +---+---+---+ +---+---+ | | | +---+---+ + +-------+ +--------+---+---+ | lidocaine PF (XYLOCAINE MPF) 20 | Given | 01/17/20 | 100 mg | | | | mg/mL (2 %) injection | | 18 8:50 | | | | | INTRAPROCEDURE PRN, Starting Mon | | AM PDT | | | | | 01/16/18 at 0850, Until 01/16/18 | | | | | | | at 1743 | | | | | | + +-------+ +--------+---+---+ +---+---+ | | | +---+---+ + +-------+ +------+---+---+ | midazolam (VERSED) injection | Given | 01/17/20 | 2 mg | | | | intravenous, INTRAPROCEDURE PRN, | | 18 8:31 | | | | | Starting 01/16/18 at 0831, | | AM PDT | | | | | Until 01/16/18 at 1743 | | | | | | + +-------+ +------+---+---+ +---+---+ | | | +---+---+ + +-------+ +------+---+---+ | neostigmine (PROSTIGMIN) | Given | 01/17/20 | 2 mg | | | | injection intravenous, | | 18 4:42 | | | | | INTRAPROCEDURE PRN, Starting Mon | | PM PDT | | | | | 01/16/18 at 1642, Until 01/16/18 | | | | | | | at 1743 | | | | | | + +-------+ +------+---+---+ +---+---+ | | | +---+---+ + +-------+ +------+---+---+ | ondansetron (ZOFRAN) injection | Given | 01/17/20 | 4 mg | | | | intravenous, INTRAPROCEDURE PRN, | | 18 5:04 | | | | | Starting 01/16/18 at 1704, | | PM PDT | | | | | Until Tue01/16/18 at 1752 | | | | | | + +-------+ +------+---+---+ +---+---+ | | | +---+---+ + +-------+ +---------+---+---+ | PHENYLEPHrine 100 mcg/mL IV | Given | 01/17/20 | 100 mcg | | | | syringe intravenous, | | 18 4:02 | | | | | INTRAPROCEDURE PRN, Starting Mon | | PM PDT | | | | | 01/16/18 at 1027, Until Tue01/16/18 | | | | | | | at 1743 | | | | | | + +-------+ +---------+---+---+ +-------+ +---------+---+---+ | Given | 01/17/20 | 100 mcg | | | | | 18 3:35 | | | | | | PM PDT | | | | +-------+ +---------+---+---+ | Given | 01/17/20 | 100 mcg | | | | | 18 3:14 | | | | | | PM PDT | | | | +-------+ +---------+---+---+ +---+---+ | | | +---+---+ + + + + +-------+---+ | PHENYLEPHrine 50 mg/250 mL (0.2 | Restarte | 01/17/20 | 0.2 | 6.18 | | | mg/mL) IV infusion (ADC) | d | 18 3:06 | mcg/kg/m | mL/hr | | | intravenous, INTRAPROCEDURE | | PM PDT | in | | | | CONTINUOUS PRN, Starting Mon | | | | | | | 01/16/18 at 1128, Until 01/16/18 | | | | | | | at 1743 | | | | | | + + + + +-------+---+ + + + +-------+---+ | Restarted | 01/17/20 | 0.2 | 6.18 | | | | 18 2:42 | mcg/kg/m | mL/hr | | | | PM PDT | in | | | + + + +-------+---+ | Rate/Dose Change | 01/17/20 | 0.3 | 9.27 | | | | 18 1:23 | mcg/kg/m | mL/hr | | | | PM PDT | in | | | + + + +-------+---+ +---+---+ | | | +---+---+ + +-------+ +-------+---+---+ | propofol INTRAPROCEDURE PRN, | Given | 01/17/20 | 10 mg | | | | Starting Tue01/16/18 at 0849, | | 18 5:24 | | | | | Until Tue01/16/18 at 1743 | | PM PDT | | | | + +-------+ +-------+---+---+ +-------+ +-------+---+---+ | Given | 01/17/20 | 10 mg | | | | | 18 5:02 | | | | | | PM PDT | | | | +-------+ +-------+---+---+ | Given | 01/17/20 | 10 mg | | | | | 18 4:43 | | | | | | PM PDT | | | | +-------+ +-------+---+---+ +---+---+ | | | +---+---+ + +-------+ +-------+---+---+ | rocuronium (ZEMURON) injection | Given | 01/17/20 | 30 mg | | | | intravenous, INTRAPROCEDURE PRN, | | 18 2:25 | | | | | Starting Tue01/16/18 at 0850, | | PM PDT | | | | | Until Tue01/16/18 at 1743 | | | | | | + +-------+ +-------+---+---+ +-------+ +-------+---+---+ | Given | 01/17/20 | 10 mg | | | | | 18 1:32 | | | | | | PM PDT | | | | +-------+ +-------+---+---+ | Given | 01/17/20 | 10 mg | | | | | 18 1:16 | | | | | | PM PDT | | | | +-------+ +-------+---+---+ +---+---+ | | | +---+---+ + +-------+ +-------+---+---+ | SUFentanil (SUFENTA) injection | Given | 01/17/20 | 5 mcg | | | | INTRAPROCEDURE PRN, Starting Mon | | 18 5:15 | | | | | 01/16/18 at 1025, Until Tue01/16/18 | | PM PDT | | | | | at 1743 | | | | | | + +-------+ +-------+---+---+ +-------+ +--------+---+---+ | Given | 01/17/20 | 5 mcg | | | | | 18 5:01 | | | | | | PM PDT | | | | +-------+ +--------+---+---+ | Given | 01/17/20 | 10 mcg | | | | | 18 3:59 | | | | | | PM PDT | | | | +-------+ +--------+---+---+ +---+---+ | | | +---+---+ documented in this encounter"
--- OUTSIDE RECORDS SUMMARY | ~2019-10-09 | XMS | Encounter Summary ---
Demographics + + + | Address | [address] | | | [place] [address] | + + + | Home Phone | | + + + | Preferred Language | Unknown | + + + | Marital Status | | + + + | Mormon Affiliation | Unknown | + + + | Race | Unknown | + + + | Ethnic Group | Unknown | + + + Author + + + | Author | [facility] | | | and [place] | + + + | Organization | [facility] | | | and [...] Team Providers + +------+ + | Care Network Systems Analyst Name | Role | Phone | + +------+ + PCP | Unavailable | + +------+ + Encounter Details +--------+ + + + + | Date | Type | Department | Care Team | Description | +--------+ + + + + | 07/26/ | Abstract | [facility] | Provider, | | | 2011 | | Anti-Coagulation | MD [address] | | | | | [place] | [address] | | | | | | [place] [address] | | +--------+ + + + + [...] [place] | | | | | | [id number] | | | | | | | | +--------+ + + + + documented as of this encounter Visit Diagnoses Not on filedocumented in this encounter"
--- OUTSIDE RECORDS SUMMARY | ~2019-10-09 | XMS | Encounter Summary ---
Demographics + + + | Address | [address] | | | [place] [address] | + + + | Home Phone | | + + + | Preferred Language | Unknown | + + + | Marital Status | | + + + | Advent Affiliation | Unknown | + + + | Race | Unknown | + + + | Ethnic Group | Unknown | + + + Author + + + | Author | [facility] | | | and [place] | + + + | Organization | [facility] | | | and [...] Team Providers + +------+ + | Care Rn Document Improvement Name | Role | Phone | + +------+ + | Daniel Cannon MD | PCP | | + +------+ + Encounter Details +--------+ + + + + | Date | Type | Department | Care Team | Description | +--------+ + + + + | 07/19/ | Hospital | [facility] | Naida Burnette | | | 2018 | Encounter | MED CTR RADIATION | MD Brad [address] | | | | | ONCOLOGY [address] [place] | | | | | [place], | [address] | | | | | [place] [address] | | | | | | [phone] | | | +--------+ + + + [...] +---------+ + + | acetaminophen | Take by mouth. | | 0 | 06/21/20 | | | (TYLENOL) 500 mg | | | | 18 | 8 | | tablet | | | | | | + + + +---------+ + + | albuterol | Inhale 2 puffs into | | 0 | | | | (VENTOLIN HFA) 90 | the lungs every 6 | | | | 8 | | mcg/puff inhaler | hours as needed for | | | | | | | Wheezing. | | | | | + + + +---------+ + + | docusate-senna | Take by mouth. | | 0 | 06/21/20 | | | (SENOKOT-S) 50-8.6 | | | | 18 | 8 | | mg per tablet | | | | | | + + + +---------+ + + | famotidine | Take 20 mg by mouth | | 0 | | | | (PEPCID) 20 mg | 2 times daily. | | | | 8 | | tablet | | | | | | + + + +---------+ + + | nicotine | Take 4 mg by mouth | | 0 | | | | (NICORETTE) 4 mg gum | as needed for | | | | 8 | | | Nicotine Craving. | | | | | | | Chew and tuck 1 | | | | | | | piece every 1-2 | | | | | | | hours for weeks 1-6 | | | | | | | then every 2-4 hours | | | | | | | for weeks 7-9 then | | | | | | | every 4-8 hours | | | | | | | weeks 10-12 (max 24 | | | | | | | pieces/day). | | | | | + + [...] + + + +---------+ + + | penicillin 125 | Take by mouth. | | 0 | 07/06/20 | | | mg/5 mL solution | | | | 18 | 8 | + + + +---------+ + + | penicillin 500 mg | take 1 tablet by | | 0 | 07/16/20 | | | tablet | mouth every 6 hours | | | 18 | 8 | | | for SKIN INFECTION | | | | | + + + +---------+ + + | polyethylene | Take by mouth. | | 0 | 06/21/20 | | | glycol (MIRALAX) | | | | 18 | 8 | | powder | | | | | | + + + +---------+ + + | varenicline | Take 1 mg by mouth 2 | | 0 | | | | (CHANTIX) 1 MG | times daily. | | | | 8 | | tablet | | | | [...]
--- OUTSIDE RECORDS SUMMARY | ~2019-10-09 | XMS | Encounter Summary ---
Demographics + + + | Address | [address] | | | [place] [address] | + + + | Home Phone | | + + + | Preferred Language | Unknown | + + + | Marital Status | | + + + | Bahai Affiliation | NRP | + + + | Race | White | + + + | Ethnic Group | Not or | + + + Author + + + | Author | [facility] | + + + | Organization | [facility] | + + + | Address | Unknown | + + + | Phone | Unavailable | + + + Support + + + + + | Name | Relationship | Address | Phone | + + + + + | Cecile Chowdhury | ECON | [address] | | | | | [place] [address] | | + + + + + Care Team Providers + +------+ + | Care Planning Manager Name | Role | Phone | + +------+ + | Daniel Cannon MD | PCP | | + +------+ + Encounter Details +--------+ + + + + | Date | Type | Department | Care Team | Description | +--------+ + + + + | 09/18/ | MyChart | Diagnostic Imaging | | Appointment | | 2019 | Encounter | Services [address] | | Confirmation | | | | [address] | | | | | | [place], [place] | | | | | | [address] | | | +--------+ + + + + Social History + + + +--------+ + [...] + + +---------+ + | Yes | 30 Cans of beer | 30.0 | 12 pack daily | + + [...] | Visit | | MD Sidney [address] [facility] | | | | | | [address] | | | | | | [place], [place] | | | | | | [address] | | | | | | [phone] | | | | | | | | +--------+---------+ + + + documented as of this encounter Visit Diagnoses Not on filedocumented in this encounter"
--- OUTSIDE RECORDS SUMMARY | ~2019-10-09 | XMS | Encounter Summary ---
Demographics + + + | Address | [address] | | | [place] [address] | + + + | Home Phone | | + + + | Preferred Language | Unknown | + + + | Marital Status | | + + + | Uatsdin Affiliation | Unknown | + + + | Race | Unknown | + + + | Ethnic Group | Unknown | + + + Author + + + | Author | [facility] | | | and [place] | + + + | Organization | [facility] | | | [...] Team Providers + +------+ + | Care Water Quality Technician Name | Role | Phone | + +------+ + | Daniel Cannon MD | PCP | | + +------+ + Reason for Visit +--------+ + | Reason | Comments | +--------+ + | Other | | +--------+ + Encounter Details +--------+ + + + + | Date | Type | Department | Care Team | Description | +--------+ + + + + | 08/21/ | Telephone | [facility] | Naida Burnette | Other | | 2018 | | MED CTR MEDICAL | MD Brad [address] | | | | | ONCOLOGY CLINIC [address] [place], [place] | | | | | [address] [place] | [address] | | | | | [place] [address] | | | | | | [phone] | | | +--------+ + + + [...] [place] | | | | | | [address] | | | | | | | | +--------+ + + + + documented as of this encounter Visit Diagnoses Not on filedocumented in this encounter"
--- OUTSIDE RECORDS SUMMARY | ~2019-10-09 | XMS | Encounter Summary ---
Demographics + + + | Address | [address] | | | [place] [address] | + + + | Home Phone | | + + + | Preferred Language | Unknown | + + + | Marital Status | | + + + | Cheondoism Affiliation | Unknown | + + + | Race | Unknown | + + + | Ethnic Group | Unknown | + + + Author + + + | Author | [facility] | | | and [place] | + + + | Organization | [facility] | | | and [...] Team Providers + +------+ + | Care Meat Counter Clerk Name | Role | Phone | + +------+ + | Daniel Cannon MD | PCP | | + +------+ + Reason for Visit + + + | Reason | Comments | + + + | Nutrition Education | | + + + Encounter Details +--------+ + + + + | Date | Type | Department | Care Team | Description | +--------+ + + + + | 08/24/ | Hospital | [facility] | Vasile Naida | | | 2018 | Encounter | MED CTR NUTRITION | MD Brad [address] | | | | | SERVICES [address] [place], [place] | | | | | [place], | [address] | | | | | [place] [address] | | | | | | [phone] | Earlene Whitlock, | | | | | | RDN | | +--------+ + + + + [...] documented as of this encounter Progress Notes Earlene Whitlock RDN - 08/24/2018 12:27 PM PSTFormatting of this note might be different f rom the original. 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 Pt s tates he is still eating the same but finds he has to take smaller bites at times and chew h is food well. His s/o reports she is making high calorie high protein lunches and dinners f or him. He is drinking CIB for breakfast. Weight is down one pound in a week and two pound s in two weeks. UBW 215-217#. OBJECTIVE: Diet: high protein high calorie Wt Readings from Last 3 Encounters: 08/24/18 97.3 kg (214 lb 8.1 oz) 08/17/18 97.9 kg (215 lb 13.3 oz) 08/10/18 98.6 kg (217 lb 6 oz) Ht Readings from Last 1 Encounters: 07/19/18 1.88 m (6' 2.02") Reviewed high calorie high protein recipes and ways to make the moist out of each bite. Th ey verbalized understanding of diet instruction. Will continue to follow up. Time spent: 15 minutes Thank you for the referral, Earlene Whitlock RDN 08/24/2018 12:27 documented in this encounter Plan of Treatment [...] [place] | | | | | | [address] | | | | | | | | +--------+ + + + + documented as of this encounter Visit Diagnoses Not on filedocumented in this encounter
--- OUTSIDE RECORDS SUMMARY | ~2019-10-09 | XMS | Encounter Summary ---
Demographics + + + | Address | [address] | | | [place] [address] | + + + | Home Phone | | + + + | Preferred Language | Unknown | + + + | Marital Status | | + + + | Quaker Affiliation | Unknown | + + + | Race | Unknown | + + + | Ethnic Group | Unknown | + + + Author + + + | Author | [facility] | | | and [place] | + + + | Organization | [facility] | | | [...] Team Providers + +------+ + | Care News Correspondent Name | Role | Phone | + [...] Description | +--------+--------+ + + + | 04/30/ | Refill | [facility] [place] | [place], | Medication Refill | | 2014 | | PULMONARY [address] | Latisha Dominguez MD | | | | | [place], | | | | | | [place] [address] | | | | | | [phone] | | | +--------+--------+ + + + [...] | | | | | | [facility] [place] | | | | | | [address] | | | | | | | | +--------+ + + + + documented as of this encounter Visit Diagnoses Not on filedocumented in this encounter"
--- OUTSIDE RECORDS SUMMARY | ~2019-10-09 | XMS | Encounter Summary ---
Demographics + + + | Address | [address] | | | [place] [address] | + + + | Home Phone | | + + + | Preferred Language | Unknown | + + + | Marital Status | | + + + | Buddhist Affiliation | Unknown | + + + | Race | Unknown | + + + | Ethnic Group | Unknown | + + + Author + + + | Author | [facility] | | | and [place] | + + + | Organization | [facility] | | | [...] Team Providers + +------+ + | Care Pipe Finishing Supervisor Name | Role | Phone | + [...] | +--------+ + + + + | 09/14/ | Hospital | [facility] | Vasile Naida | | | 2018 | Encounter | MED CTR NUTRITION | MD Brad [address] | | | | | SERVICES [address] [place], [place] | | | | | [place], | [address] | | | | | [place] [address] | | | | | | [phone] | Earlene Whitlock, | | | | [...] capsule by | 63 | 0 | 09/04/20 | | | (AMOXIL) 500 MG | mouth 3 times daily | capsule | | 18 | 8 | | capsule | for 21 days. | | | | | + + + +---------+ + + | LORazepam (ATIVAN) | Take 1-2 tabs prior | 40 | 0 | 08/25/20 | | | 1 mg tablet | to radiation, as | tablet | | 18 | 8 | | | needed for anxiety | | | | | + + [...] as of this encounter Progress Notes Earlene Whitlock, KIM - 09/14/2018 10:39 AM PSTFormatting of this note might be different f rom the original. 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 UBW 215-217#. For the first time he has lost weight during treatment He has one week left. Reviewed hig h calorie high protein foods and need to increase caloric intake. He is on antibiotics and having some diarrhea. Provided samples of banana flakes to aide with diarrhea. Discussed a dding probiotics to his diet. OBJECTIVE: Diet: high protein high calorie Wt Readings from Last 3 Encounters: 09/14/18 96.6 kg (212 lb 15.4 oz) 09/06/18 98.2 kg (216 lb 7.9 oz) 08/31/18 98.2 kg (216 lb 7.9 oz) Ht Readings from Last 1 Encounters: 07/19/18 1.88 m (6' 2.02") Reviewed high calorie high protein foods d/t recent weight loss. Discussed banana flakes a nd probiotics d/t antibiotics. Will continue to see in the radiation treatment area. Time spent: 15 minutes Thank you for the referral, Earlene Whitlock RDN 09/14/2018 10:39 documented in this encounter Plan of Treatment +--------+ + + + + | Date | Type | Specialty | Care Team | Description | +--------+ + + + + | 01/01/ | Appointment | Radiation Oncology | Naida Burnette | | | 2019 | | | MD Edi [address] | | | | | | [facility] [place] | | | | | | [id number] | | | | | | | | +--------+ + + + + documented as of this encounter Visit Diagnoses Not on filedocumented in this encounter
--- OUTSIDE RECORDS SUMMARY | ~2019-10-09 | XMS | Encounter Summary ---
Demographics + + + | Address | [address] | | | [place] [address] | + + + | Home Phone | | + + + | Preferred Language | Unknown | + + + | Marital Status | | + + + | Voodoo Affiliation | NRP | + + + [...] | | | | [place] [address] | | + + + + + Care Team Providers + +------+ + | Care Women'S Apparel Salesperson Name | Role | Phone | + +------+ + | Daniel Cannon MD | PCP | | + +------+ + Reason for Visit + + + | Reason | Comments | + + + | Follow-up visit | | + + + Consultation (Routine) +--------+--------+ + + + + | Status | Reason | Specialty | Diagnoses / | Referred By | Referred To | | | | | Procedures | Contact | Contact | +--------+--------+ + + + + | Closed | | Otolaryngolog | Diagnoses | Danyel | Blanka, | | | | y | Laryngeal | Javier Gonzalez MD | Pasquale Steiner MD | | | | | cancer (HCC) | [address] | [address] | | | | | Procedures | [address] | [facility] | | | | | CONSULT TO | [place], [place] | [place], | | | | | ENT GENERAL | [address] | [place] | | | | | | Phone: | [phone] | | | | | | [phone] | Phone: | | | | | | Fax: | [phone] | | | | | | [phone] | Fax: | | | | | | | [phone] | +--------+--------+ + + + + Encounter Details +--------+---------+ + + + | Date | Type | Department | Care Team | Description | +--------+---------+ + + + | 05/17/ | Office | Otolaryngology | Pasquale Moscoso | T3N0 SCCa, right | | 2018 | Visit | Laryngology Services | MD [place] [address] | glottis (Primary | | | | at [facility] [address] | Dx); Dysphonia; | | | | [address] [place], | [place], [place] | Tobacco abuse; | | | | [place] [address] | [address] | Tobacco abuse | | | | [phone] | [phone] | counseling | | | | | | | [...] + + + + | Weight | 90.7 kg (200 lb) | 05/17/2018 10:08 AM | | | | | PDT | | + + + + + | Height | 188 cm (6' 2") | 05/17/2018 10:08 AM | | | | | PDT | | + + + + + | Body Mass Index | 25.68 | 05/17/2018 10:08 AM | | | [...] of this encounter Patient Instructions Patient Instructions Pamela Ford MA - 05/17/2018 10:00 AM PDTThank you for choosing [facility] Department of Otolaryngology for your health care needs. If you need to speak to an ENT physician after normal business hours, please call [phone] and ask to have the ENT phys ician financial institution manager paged. documented in this encounter Progress Notes Pasquale Mosocso MD - 05/17/2018 10:00 AM PDT PATIENT NAME: Ronni Chowdhury [facility] MR#: [id number] : 1970 REFERRING PROVIDER: Daniel Cannon MD [place] [address] [place] [address] PRIMARY CARE PHYSICIAN: Daniel Cannon MD CLINIC: [facility] REASON FOR FOLLOW-UP: Chief Complaint Patient presents with Follow-up visit TUMOR TYPE/LOCATION: squamous cell carcinoma, right glottis TNM/STAGE: [id number]/Stage III IDENTIFICATION DATE: 11/29/17 SURGICAL EXCISION DATE: 01/16/18 TYPE OF SURGERY: supracricoid partial laryngectomy with cricohyoidoepiglottopexy, right mod ified radical neck dissection RADIATION THERAPY COMPLETED: -- RADIATION THERAPIST: -- RADIATION DOSE: -- cGy to primary site. CHEMOTHERAPY GIVEN: No MEDICAL ONCOLOGIST: Javier Montaño MD --------- HPI: Mr. Chowdhury is a 47 y.o. male who returns for fever of unknown origin of his squamous c ell carcinoma treated with supracricoid partial laryngectomy with cricohyoidoepiglottopexy a nd modified radical neck dissection. Mr. Chowdhury returns noting that he is doing "OK." He cautiously he admits that he still been smoking. He notes that he can stop her periods of time but then restarts with a stressful event. He admits he doesn't have other goods coping strategies for stress. He is proud that he doesn't drink to get through these. He has been doing well with his diet. He continues e tiffany unrestricted diet. He notes that he needs a little bit slower but otherwise anything he wants. He will cough occasionally with swallowing mostly on liquids-- but this is getting less and less. He has not had any fevers, chills or sweats. He denies problems with product anika cough or hemoptysis. He denies chest pain. He denies any recent episodes of pneumonia o r bronchitis since I last saw him. His gastrostomy tube site is healed up. He denies strido r or noisy breathing. He does not note dyspnea on exertion. He has not noted any otalgia. His voice continues to improve. He is not maintained on a proton pump inhibitor. He notes no symptoms of reflux, including heartburn, indigestion, acidic taste or belching. EAT-10 DYSPHGIA ASSESSMENT SCORE (0-40, lower is better): 0/40 MD GREEN DYSPHAGIA INDEX (0-100, 100 is better): Global: 0 Emotional: 0 Fun ctional: 0 Physical: 0 Total Mean: 0 VOICE HANDICAP INDEX (0-120, lower is better): 30/120 PMHx: Past Medical History: Diagnosis Date Alcohol abuse Allergic to cats Asthma Essential hypertension Hemochromatosis History of tobacco abuse Malignant neoplasm of glottis (HCC) 11/29/2017 Right vocal fold-- T3N0 SCCa, p16(-) SURGHx: Past Surgical History Procedure Laterality Date Direct laryngoscopy with biopsy Right 11/29/2017 Dr. Castillo-- SCCa right vocal fold confirmed, p16(-) Deviated nasal septum repair 2005 Liver biopsy 11/2016 Percutaneous placement of gastrostomy tube 01/16/2018 Dr. Moscoso-- 20 Fr. Ponsky Modified radical neck dissection Right 01/16/2018 Dr. Moscoso-- Levels IIa-IV Tracheotomy 01/16/2018 Dr. Moscoso-- #8 DCT Shiley Supracricoid partial laryngectomy Right 01/16/2018 Dr. Moscoso-- left arytenoid spared Cricohyoidoepiglottopexy 01/16/2018 Dr. Moscoso Direct laryngoscopy with biopsy with microscope Right 06/20/2018 Dr. Moscoso Incision and drainage of deep abscess of soft tissues of neck Right 06/20/2018 Dr. Moscoso ALLERGIES: No Known Allergies MEDICATIONS: Current Outpatient Prescriptions Medication Sig amLODIPine 10 mg oral tablet Take 10 mg by mouth once daily. Indications: hypertension No current facility-administered medications for this visit. EXAMINATION: Ht 1.88 m (6' 2") | Wt 90.7 kg (200 lb) | BMI 25.68 kg/(m^2) Gen: He is a 47 y.o. male. He is awake, alert and comfortable with the examination. His weight is appropriate. He is normocephalic. Ears: The pinnae are [...] lesions noted of the face or head. Oropharynx: Normal lips and oral competence are noted. The dentition is good. The mucosa is dry and pale, but shows no lesions or masses. The tonsils are 1+ and the fossae show no lesions. Neck: The neck has a healed apron incision. There is no erythema. The tracheotomy site is closed and there is no tracheocutaneous fistula. There is no lymphadenopathy noted in the anterior, posterior, digastric or submental triangles. The thyroid is palpable, but not enl arged or tender. I cannot appreciate any nodules. The larynx is absent and the pexis is in tact. Chest: Chest rise is symmetric and there is no audible wheezing, stridor or wet vocal qual ity. His chest is clear to auscultation bilaterally. There is no stridor with deep inspira tion. Abdomen: The abdomen is non-distended and non-tender. There is no rebound tenderness. Th ere is little or no guarding. The gastrostomy tube site is healed. Neurologic: The patient is awake, alert and cooperative with the examination. Responses t o questions were judged to be appropriate throughout the interview. The extraoccular moveme nts are intact and symmetric throughout. The pupils are equal. Appliance Assembler strength does jessica ear full bilaterally. Facial [...] Perceptual voice evaluation demonstrates dysphonia which is severe. The pitch is markedly elevated for a male and shows markedly limited range. Vocal intensity is low and shows markedly limited upper range. There is 3+ roughness, 1-2+ breathiness, 1+ a sthenia and 2+ tightness appreciated. There is no tremor noted with sustained vowel phonat ion. I am unable to detect voice breaks. Glottal parsons is not detected. There is no diploph onia noted. Articulation is normal. Resonance is normal. ACOUSTIC MEASURES: The laryngeal function studies were completed using the [facility] with a hand- held microphone with a 15cm luann to mouth distance. All measures were obtained using Real Jeffery e Pitch with the VRP button on with the energy shift at 19.5dB applied, with the exception o f the perturbation measures, which were completed using the MDGROU.[email or web address] Advanced program. Maximum phonation time = 10 seconds. Fundamental frequency in a sustained vowel = 119 Hz. Pitch ra nge was unable to be measured accurately due to severity of his voice disorder. Shimmer = 2. 932 dB (Normal =0.176dB for females, 0.219dB for males) and Jitter = 7.399% (Normal = 0.633% for females, 0.589% for males). Fundamental frequency in reading = 166 Hz. Loudness = 72. 84 dB in a sustained vowel and 73.25 dB in reading. FLEXIBLE LARYNGOSCOPY: Laryngoscopy was performed using a distal-chip Olympus flexible vid eolaryngoscope following the topical nasal application of oxymetazoline and pontocaine. Thi s was performed because the patient's gag reflex precluded adequate transoral indirect laryn goscopy. This notes an intact epiglottis. This is sharp and without worrisome lesions. Th e base of tongue is clear and free of worrisome lesions or masses. The laryngeal introitus notes an intact pexis. The neoglottis is without worrisome lesions, ulceration or masses. There is no crusting noted. The left arytenoid is present. It is fully mobile. The remai pushpa arytenoid is sensate. Closure is complete with breath holding. The subglottic airway is patent and without lesions or masses. VIDEOSTROBOSCOPY: Laryngovideostroboscopy was performed today by Jonna Moreno CCC-MANAGER INTERN. R obi of laryngovideostroboscopy demonstrates laryngeal anatomy and motion as noted above. There is moderate laryngeal hyperfunction in the anterior-posterior and lateral dimension. There is a stable mucosal wave created. This is created primarily off the mucosa of the aryt enoid mound on the right and medial aspect of the left arytenoid. The epiglottis facilitate s closure anteriorly. While hard to see closure does appear to be complete. ASSESSMENT: Mr. Chowdhury continues to do very well. There is no evidence of recurrent or per sistent disease at this time. Functionally, he is doing extremely well. We talked more ab out his smoking today. We talked specifically about finding something that he can use as an alternative smoking when under stress. He admits that he has some ideas and has done this be fore, but the stress of his cancer treatment has been hard on him. PLAN: I recommended continuing an unrestricted diet. He will continue work on smoking leia sation. His has some thoughts and will help reinforce this. He worked with Jonna steiner CCC-MANAGER INTERN some on voice today. I will see him back in approximately 2-3 months, or sooner if symptoms worsen. Pasquale Moscoso M.D. Detasseler Laryngology and Head & Neck Surgery Pamela Tanner MA - 05/17/2018 10:00 AM PDTlaryngoscopy procedure was performed using the f [employer] instruments: Description #1: laryngoscope Serial ID #1: [id number] documented in this en counter Plan of Treatment +--------+---------+ + + + | Date | Type | Specialty | Care Team | Description | +--------+---------+ + + + | 03/19/ | Office | Otolaryngology | Pasquale Moscoso | | | 2019 | Visit | | MD [place] [address] [facility] | | | | | | [facility] | | | | | | [place], [place] | | | | | | [address] | | | | | | [phone] | | | | | | | | +--------+---------+ + + + documented as of this encounter Visit Diagnoses + + | Diagnosis | + + | T3N0 SCCa, right glottis - Primary Malignant neoplasm of glottis | + + | Dysphonia | + + | Tobacco abuse Tobacco use disorder | + + | Tobacco abuse counseling Counseling on substance use and abuse | + + documented in this encounter
--- OUTSIDE RECORDS SUMMARY | ~2019-10-09 | XMS | Encounter Summary ---
Demographics + + + | Address | [address] | | | [place] [address] | + + + | Home Phone | | + + + | Preferred Language | Unknown | + + + | Marital Status | | + + + | Druze Affiliation | NRP | + + + | Race | White | + + + | Ethnic Group | Not or | + + + Author + + + | Author | [facility] | + + + | Organization | [facility] | + + + | Address | Unknown | + + + | Phone | Unavailable | + + + Support + + + + + | Name | Relationship | Address | Phone | + + + + + | Cecile Chowdhury | ECON | [address] | | | | | [place] [address] | | + + + + + Care Team Providers + +------+ + | Care Consumer Banker Name | Role | Phone | + [...] Mailcode: | | | | | | [place], [place] | [address] | | | | | | [address] | [facility] | | | | | | Phone: | and Healing, | | | | | | [phone] | Building [address], | | | | | | Fax: | 15th Floor | | | | | | [phone] | [place], [place] | | | | | | | [address] | | | | | | | Phone: | | | | | | | [phone] | | | | | | | Fax: | | | | | | | [phone] | +--------+--------+ + + + + Encounter Details +--------+ + + + + | Date | Type | Department | Care Team | Description | +--------+ + + + + | 02/13/ | Diagnostic | Otolaryngology | Steven Vidal, | | | 2018 | Visit | Speech Therapy | EQUINE BREEDER [address] | | | | | Services at [facility] | [facility] | | | | | [address] | [place] [address] | | | | | Loop Mailcode: [address] | [phone] | | | | | Physician's | | | | | | [place], | | | | | | [place] [address] | | | | | | [phone] | | | +--------+ + + + [...] of this encounter Progress Notes Steven Vidal, LESTER - 02/13/2018 1:00 PM PDTFormatting of this note might be different fro m the original. Clinic: [facility] Referring Physician: Pasquale Moscoso MD PCP: Daniel Cannon MD Medical Diagnosis: 1. T3N0 SCCa, right glottis 2. Dysphonia 3. Dysphagia, pharyngeal phase 4. Attention to tracheostomy (HCC) Date of Onset for This Diagnosis: 01/16/18 Treatment Diagnosis: 1. T3N0 SCCa, right glottis 2. Dysphonia 3. Dysphagia, pharyngeal phase 4. Attention to tracheostomy (HCC) Start of Care Date: 02/06/2018 Clinic: [facility] Referring Physician: Pasquale Moscoso MD PCP: Daniel Cannon MD Medical Diagnosis: 1. T3N0 SCCa, right glottis 2. Dysphonia 3. Dysphagia, pharyngeal phase 4. Attention to tracheostomy (HCC) Date of Onset for This Diagnosis: 01/16/18 Treatment Diagnosis: 1. T3N0 SCCa, right glottis 2. Dysphonia 3. Dysphagia, pharyngeal phase 4. Attention to tracheostomy (HCC) Start of Care Date: 02/06/2018 Duration of session: 50 minutes SUBJECTIVE: Ronni Chowdhury is a 47 y[address] male of Dr. Moscoso who is familiar to our servic e from OP pre-operative evaluation and voice evaluation. INTERVAL HISTORY: No new issues. Reports TFs going OK. No suctioning needed - clearing secr etions via mouth. Wearing trach cap 09/05. Taking foods PO has self-advanced. Still havin g some trouble with liquids. The patient attends today's visit with his , Cecile. He was seen also with Bernie Fang, Speech Pathology electrical intern. The patient is now s/p the following [...] chronic pain (close follow up with his [facility] doctor). The patient had stable respiratory status on 3 Liters of supplement O2 (provided at [facility]). The patient was evaluated by speech language [...] Moscoso Wt Readings from Last 3 Encounters: 02/06/18 97.5 kg (214 lb 14.4 oz) 01/16/18 102.7 kg (226 lb 6.6 oz) 01/05/18 104.3 kg (230 lb) COMMUNICATION STATUS: Voice rough, weak, and reduced in intensity but grossly functional fo r communication in quiet setting. Patient noted that he was getting by with his voice as is because he doesn t need to talk at work. Decannulated during visit today by Dr. Rukhsana sanchez. Reminded to place finger over stoma site during voicing, laughing, and coughing, to p romote timely healing. DIETARY STATUS: PEG for all nutrition/hydration/medication. Prior to admission the patient was eating a regular diet with no restriction or complaints. Patient reports self-advancing his diet to solids with success (steak and baked potatoes); liquids still difficult. CLINICAL SWALLOW TRIALS: Assessed with nectar-thick liquid via cup sip x 5oz, apple sauce v ia teaspoon x3oz, pudding via teaspoon x1oz, and fruit cocktail via teaspoon x2 bites. Pt in consistent in use of strategy (safety-swallow and L head tilt). When eating pt noted to take small bites, one at a time, and swallow once. One delayed throat clear for chocolate puddin g and fruit cocktail. Otherwise no significant difficulties. When drinking pt noted to take small sips, one at a time. There was persistent delayed cough & throat clear. Pt then re-cou nseled in safety swallow. This reduced the frequency of aspiration symptoms but did not elim inate them completely. PATIENT EDUCATION & TREATMENT: Home exercise program reviewed, namely: 1. Sustained phonation x 10 2. Pitch glides x 10 3. Adduction with grunt x 10 (pt struggles to get a complete breath-hold) Home exercise program continues with importance highlighted to motivate patient as he did n ot complete program between visits. Patient verbalized understanding of information provide. ASSESSMENT: 1. Functional written communication. Voice moderately dysphonic. 2. Primary nutrition & hydration via PEG. Upgraded to regular diet with any liquids PO. Mus t use safety swallow with all liquids. 3. Decannulated during visit today by Dr. Moscoso. Reminded to place finger over stoma si te during voicing, laughing, and coughing, to promote timely healing. PLAN: Follow-up in 2 weeks to assess progress. Steven Vidal, PhD, CCC-EQUINE BREEDER [facility] Otol[facility]ology, [address] [place] [address] SWALLOWING THERAPY SAFETY SWALLOW: 1. Put some food or liquid in your mouth 2. Tuck your chin DOWN 3. Take a deep breath in through your nose 4. Hold your breath TIGHTLY at the level of your throat and 5. SWALLOW HARD 6. Clear your throat 7. Swallow again With practice this becomes automatic & natural! EATING PROGRAM: What do I eat? ? [place] purees: e.g. yogurt, ice cream, apple-sauce, milkshakes, cream soups. How much? ? You can have a MAXIMUM of 5 bites every hour. What are the things to watch out for? ? Fevers, chills, night-sweats, wheezing, shortness of breath, increased coughing. What should I do if these happen? ? Stop taking anything at all until your symptoms improve. Call your doctor if they persist . VOICE & BREATHING EXERCISES: 1. Do voice exercises, 10 of each, 5 times per day: a. Loud AH b. Lowest pitched AH up to highest pitched 2. Breath-holding exercise: a. Take a breath in and hold your breath as TIGHTLY as you can with your mouth open. Count 5 and then GRUNT as loudly as you can. 3. Wear your trach plugged as much as possible and especially during voice/swallowing exerc ises and when eating. documented in this en counter Plan of Treatment +--------+---------+ + + + | Date | Type | Specialty | Care Team | Description | +--------+---------+ + + + | 03/19/ | Office | Otolaryngology | Pasquale Moscoso | | | 2020 | Visit | | MD [address] [facility] | | | | | | [address] | | | | | | [place], [place] | | | | | | [address] | | | | | | [phone] | | | | | | | | +--------+---------+ + + + documented as of this encounter Procedures + +--------+ + + + | Procedure Name | Priori | Date/Time | Associated Diagnosis | Comments | | | ty | | | | + +--------+ + + + | NC ORAL FUNCTION | Routin | 02/13/2018 | T3N0 SCCa, right | | | THERAPY | e | 3:55 PM | glottis Dysphonia | | | [...] phase | + + documented in this encounter"
--- OUTSIDE RECORDS SUMMARY | ~2019-10-09 | XMS | Encounter Summary ---
Demographics + + + | Address | [address] | | | [place] [address] | + + + | Home Phone | | + + + | Preferred Language | Unknown | + + + | Marital Status | | + + + | Hindu Affiliation | Unknown | + + + | Race | Unknown | + + + | Ethnic Group | Unknown | + + + Author + + + | Author | [facility] | | | and [place] | + + + | Organization | [facility] | | | and [...] Team Providers + +------+ + | Care Tugboat Mate Name | Role | Phone | + +------+ + | Daniel Cannon MD | PCP | | + +------+ + Encounter Details +--------+ + + + + | Date | Type | Department | Care Team | Description | +--------+ + + + + | 06/12/ | Imaging | [facility] | Provider, | | | 2018 | Exam | MED CTR EXTERNAL | MD [address] | | | | | IMAGING | [place] | | | | | [phone] | [place] [address] | | +--------+ + + + + [...] | 2019 | | | MD Edi [address]ail[address] | | | | | | [place] | | | | | | [id number] | | | | | | | | +--------+ + + + + documented as of this encounter Procedures + +--------+ + + + | Procedure Name | Priori | Date/Time | Associated Diagnosis | Comments | | | ty | | | | + +--------+ + + + | US GUIDED LIVER | Routin | 12/07/2016 | | Results for this | | BIOPSY | e | 9:50 AM | | procedure are in the | | | | PST | | results section. | + +--------+ + + + documented in this encounter Results US Guided Liver Biopsy (12/07/2016 9:50 AM PST) + + | Specimen | + + | | + + + + + | Narrative | Performed At | + + + | External films for comparison only | [facility] | | | | | No results will be in the chart. | | + + + + +---------+ + + | Performing | Address | City/State/Zipcode | Phone Number | | Organization | | | | + +---------+ + + | [facility] | | | | + +---------+ + + documented in this encounter Visit Diagnoses Not on filedocumented in this encounter"
--- OUTSIDE RECORDS SUMMARY | ~2019-10-09 | XMS | Encounter Summary ---
Demographics + + + | Address | [address] | | | [place] [address] | + + + | Home Phone | | + + + | Preferred Language | Unknown | + + + | Marital Status | | + + + | Latter-Day Affiliation | Unknown | + + + | Race | Unknown | + + + | Ethnic Group | Unknown | + + + Author + + + | Author | [facility] | | | and [place] | + + + | Organization | [facility] | | | and [...] Team Providers + +------+ + | Care Video Player Mechanic Name | Role | Phone | + +------+ + | Daniel Cannon MD | PCP | | + +------+ + Reason for Visit + + + | Reason | Comments | + + + | IDT Note | | + + + Encounter Details +--------+ + + + + | Date | Type | Department | Care Team | Description | +--------+ + + + + | 07/21/ | Telephone | [facility] | Mary Lou, | IDT Note | | 2018 | | MED CTR RADIATION | Yolande RN | | | | | [facility] [address] | | | | | | [address] | | | | | | [place] [address] | | | | | | [phone] | | | +--------+ + + + [...]
--- OUTSIDE RECORDS SUMMARY | ~2019-10-09 | XMS | Encounter Summary ---
Demographics + + + | Address | [address] | | | [place] [address] | + + + | Home Phone | | + + + | Preferred Language | Unknown | + + + | Marital Status | | + + + | Congregational Affiliation | Unknown | + + + | Race | Unknown | + + + | Ethnic Group | Unknown | + + + Author + + + | Author | [facility] | | | and [place] | + + + | Organization | [facility] | | | and [place] | + + + | Address | Unknown | + + + | Phone | Unavailable | + + + Support + + +---------+ + | Name | Relationship | Address | Phone | + + +---------+ + | Cecile Chodwhury | ECON | Unknown | | + + +---------+ + Care Team Providers + +------+ + | Care Supervisor Central Supply Name | Role | Phone | + [...] + + | 08/24/ | Hospital | [facility] | Vasile Naida | | | 2018 | Encounter | MED CTR NUTRITION | MD Brad [address] | | | | | SERVICES [address] [place], [place] | | | | | [place], | [address] | | | | | [place] [address] | | | | | | [phone] | [place], | | | | [...] [place] | | | | | | [address] | | | | | | | | +--------+ + + + + documented as of this encounter Visit Diagnoses Not on filedocumented in this encounter
--- OUTSIDE RECORDS SUMMARY | ~2019-10-09 | XMS | Encounter Summary ---
Demographics + + + | Address | [address] | | | [place] [address] | + + + | Home Phone | | + + + | Preferred Language | Unknown | + + + | Marital Status | | + + + | Latter Day Affiliation | Unknown | + + + [...] Team Providers + +------+ + | Care Senior Facilities Manager Name | Role | Phone | [...] CTR RADIATION | MD Brad [address] | | | | | [facility]OGY CLIN[facility] [address] | [place] | | | | | [address] | [address] | | | | | [place] [address] | | | | | | [phone] | | | +--------+ + + + [...] | | | | [address] [place] | | | | | | [address] | | | | | | | | +--------+ + + + + documented as of this encounter Visit Diagnoses Not on filedocumented in this encounter"
--- OUTSIDE RECORDS SUMMARY | ~2019-10-09 | XMS | Encounter Summary ---
Demographics + + + | Address | [address] | | | [place] [address] | + + + | Home Phone | | + + + | Preferred Language | Unknown | + + + | Marital Status | | + + + | Mandaeism Affiliation | Unknown | + + + | Race | Unknown | + + + | Ethnic Group | Unknown | + + + Author + + + | Author | [facility] | | | and [place] | + + + | Organization | [facility] | | | [...] Team Providers + +------+ + | Care Fiberglass Ski Maker Name | Role | Phone | + +------+ + PCP | Unavailable | + +------+ + Encounter Details +--------+ + + + + | Date | Type | Department | Care Team | Description | +--------+ + + + + | 01/10/ | Hospital | [facility] | Daniel Cannon | | | 2011 | Encounter | MED CTR GENERIC OP | MD [address]fred [address] | | | | | CONV DEPT [address] | [facility] | | | | | [place], | [place] [address] | | | | | [place] [address] | [phone] | | | | | [phone] | | | +--------+ + + + [...] | | | MD Brad [address] | | | | | | [place] | | | | | | [address] | | | | | | | | +--------+ + + + + documented as of this encounter Procedures + +--------+ + + + | Procedure Name | Priori | Date/Time | Associated Diagnosis | Comments | | | ty | | | | + +--------+ + + + | XR CHEST PA AND | | 01/11/2012 | | Results for this | | LATERAL | | 7:53 AM | | procedure are in the | | | | PDT | | results section. | + +--------+ + + + documented in this encounter Results XR Chest PA and Lateral (01/11/2012 7:53 AM PDT) + + | Specimen | + + | | + + + + + | Narrative | Performed At | + + + | [facility] Diagnostic Imaging Department | [facility] | | [address] [facility] | [facility] [place] | | CHEST, TWO VIEWS CLINICAL | DIAG IMG | | HISTORY: SHORTNESS OF BREATH. COMPARISON: None. | | | FINDINGS: Heart size is normal. Hilar regions and pulmonary | | | vasculature is normal. Hyperinflation is present with flattening | | | of the hemidiaphragms. No focal areas of abnormal lung density are | | | seen. No bony or upper abdominal abnormalities are noted. | | | IMPRESSION: MILD EMPHYSEMATOUS CHANGE. OTHERWISE NEGATIVE STUDY OF | | | THE CHEST. Dictated Date/Time: 01/11/2012 08:59 Transcribed | | | Date/Time: 01/11/2012 09:30 Pocket Machine Operator: | | | <Electronically Signed by Pedro Zacarias MD> 01/11/12 [id number] | | + + + + + | Procedure Note | + + | Tio, Rad Conversion - 11/23/2013 5:00 PM [facility] | | Diagnostic Imaging Department [address] [place] [address] | | CHEST, TWO VIEWS CLINICAL HISTORY: SHORTNESS OF BREATH. | | COMPARISON: None. FINDINGS: Heart size is normal. Hilar regions and pulmonary | | vasculature is normal. Hyperinflation is present with flattening of the hemidiaphragms. | | No focal areas of abnormal lung density are seen. No bony or upper abdominal | | abnormalities are noted. IMPRESSION: MILD EMPHYSEMATOUS CHANGE. OTHERWISE NEGATIVE | | STUDY OF THE CHEST. Dictated Date/Time: 01/11/2012 08:59Transcribed Date/Time: | | 01/11/2012 09:30Transcriptionist: <Electronically Signed by Pedro Zacarias MD> | | 01/11/12 [id number] | |COMPARISON: None. | | | |FINDINGS: Heart size is normal. Hilar regions and pulmonary vasculature is normal. Hyper inflation | |is present with flattening of the hemidiaphragms. No focal areas of abnormal lung density are seen. | | No bony or upper abdominal abnormalities are noted. | | | |IMPRESSION: MILD EMPHYSEMATOUS CHANGE. OTHERWISE NEGATIVE STUDY OF THE CHEST. | | | |Dictated Date/Time: 01/11/2012 08:59 | |Transcribed Date/Time: 01/11/2012 09:30 | |Pocket Machine Operator: | |<Electronically Signed by Pedro Zacarias MD> 01/11/12 1706 | + + + +---------+ + + | Performing | Address | City/State/Zipcode | Phone Number | | Organization | | | | + +---------+ + + | [place] | | | | | [facility] | | | | + +---------+ + + documented in this encounter Visit Diagnoses Not on filedocumented in this encounter"
--- OUTSIDE RECORDS SUMMARY | ~2019-10-09 | XMS | Encounter Summary ---
Demographics + + + | Address | [address] | | | [place] [address] | + + + | Home Phone | | + + + | Preferred Language | Unknown | + + + | Marital Status | | + + + | Faith Affiliation | Unknown | + + + | Race | Unknown | + + + | Ethnic Group | Unknown | + + + Author + + + | Author | [facility] | | | and [place] | + + + | Organization | [facility] | | | and [...] Team Providers + +------+ + | Care Licensed Physical Therapy Assistant Name | Role | Phone | + +------+ + | Daniel Cannon MD | PCP | | + +------+ + Reason for Visit +--------+ + | Reason | Comments | +--------+ + | Asthma | f/u | +--------+ + Encounter Details +--------+---------+ + + + | Date | Type | Department | Care Team | Description | +--------+---------+ + + + | 01/30/ | Office | [facility] | [place], | Asthma, moderate | | 2015 | Visit | PULMONARY [address] | Latisha Dominguez MD | persistent, | | | | [place], | | uncomplicated | | | | [place] [address] | | (Primary Dx); | | | | [phone] | | Allergic rhinitis | | | | | | due to pollen; | | | | | | Tobacco abuse | +--------+---------+ + + + Social History [...] + +---+---+---+ + + | Tobacco Cessation: Ready to Quit: No; Counseling Given: Yes | | Comments: he is smoking slightly about [...] + + + | Blood Pressure | 138/80 | 01/30/2015 3:47 PM | | | | | PDT | | + + + + + | Pulse | 93 | 01/30/2015 3:47 PM | | | | | PDT | | + + + + + | Temperature | - | - | | + + + + + | Respiratory Rate | 14 | 01/30/2015 3:47 PM | | | | | PDT | | + + + + + | Oxygen Saturation | 96% | 01/30/2015 3:47 PM | room air | | | | PDT | | + + + + + | Inhaled Oxygen | - | - | | | Concentration | | | | + + + + + | Weight | 98.5 kg (217 lb 1.6 | 01/30/2015 3:47 PM | | | | oz) | PDT | | + + + + + | Height | 188 cm (6' 2") | 01/30/2015 3:47 PM | | | | | PDT | | + + + + + | Body Mass Index | 27.87 | 01/30/2015 3:47 PM | | | | | PDT | | + + + + + documented in this encounter Patient Instructions Patient Instructions Latisha Anaya MD - 01/30/2015 4:41 PM PDTI ordered the nicot ine patch, the 21 mg for one month with 1 refill, and the 14 mg for one month with 1 refill. If you need a prescription for more of these or a 7 mg prescription, let me know. I do not think it is a bad idea to stay on the patch for 4-6 months if you need to, or to transition from the patch to the gum or lozenges to help prevent relapse. The recommended course would be 21 mg for 6 weeks, 14 mg for 2 weeks and 7 mg for 2 weeks. Continue the Advair for now. Let me know if you get more short of breath once you start doing more exercise. Electronica lly signed by Latisha Anaya MD at 01/30/2015 4:43 PM PDT documented in this encounter Progress Notes Latisha Anaya MD - 01/30/2015 3:52 PM PDTFormatting of this note might be differe nt from the original. Pulmonary Follow Up Note HPI Ronni Chowdhury is a 44 y.o. male patient of Daniel Cannon here today for follow up of a sta. At their last visit, we had continued him on the Advair 500 mcg dose, recommended the nicot ine patch for smoking cessation, and gave him a flu shot. They return today for routine fol low up. He notes that he did quit smoking, and did go on the nicotine patch. He thinks that it was the change from the 21 mg patch to the 14 mg patch that caused him trouble. He then had some life stress, and he went and bought another pack of cigarettes. He is planning to start working out again soon with a friend who is moving back, and wants to try to wuit again around that time as he thinks this will be good motivation. This friend does not smoke either. Since last seen, he feels like their shortness of breath and wheezing has been really good. He has not had any acute illnesses. He has not required a course of prednisone for treatme nt. He has not been seen in the emergency room. His controller regimen consists of Advair 500 mcg dose 1 inhalation twice daily. He is usin g his albuterol a few times a week. He is not waking up at night with shortness of breath. He does have a chronic cough, and does produce sputum chronically. His sputum is brownish i n color. He does not have symptoms of nasal congestion, rhinorrhea and post nasal drip. He is not on any treatment for allergies. He does not have symptoms of heartburn or acid reflux. Past Medical History Past Medical History Diagnosis Date Asthma Allergy to cats Jaw fracture (HCC) Tobacco abuse Past Surgical History Past Surgical History Procedure Laterality Date Nasal septum surgery repair Social History: History Social History Marital Status: Spouse Name: N/A Number of Children: N/A Years of Education: N/A Social History Main Topics Smoking status: Current Every Day Smoker -- 1.00 packs/day for 23 years Types: Cigarettes Smokeless tobacco: Never Used Comment: he is smoking slightly about a ppd, he is almost ready to try quitting again Alcohol Use: 21.0 oz/week 42 drink(s) per week Comment: 6 pack per night Drug Use: No Sexual Activity: None Other Topics Concern None Social History Narrative Allergies: Allergies Allergen Reactions Clindamycin Medications: Outpatient Encounter Prescriptions as of 01/30/2015 Medication Sig Dispense Refill albuterol (PROAIR HFA) 90 mcg/puff inhaler Inhale 2 puffs into the lungs every 4 hours as needed for Wheezing. 1 Inhaler 6 fluticasone-salmeterol (ADVAIR DISKUS) 500-50 mcg/puff diskus inhaler Inhale 1 puff int o the lungs 2 times daily. 1 each 11 No facility-administered encounter medications on file as of 01/30/2015. Review of Systems: General: [x]Weight loss/gain (over 10 lbs) []Fever/chills/sweats []Night sweats EENT: []Hearing loss [x]Vision loss/change- went last fall and was given glasses []Sinus con gestion/nasal drainage []Nosebleeds []Hoarseness Cardiac: []Chest pain []Palpitations/heart racing []Swelling of legs/ankles []Waking up at night s hort of breath Gastrointestinal: []Nausea/vomiting []Difficulty swallowing []Heartburn/acid reflux []Loss of appetite []Abdo saul pain Urologic: []Blood in urine []Frequent urination at night []Burning/painful urination []Difficulty wit h urination Objective BP 138/80 | Pulse 93 | Resp 14 | Ht 1.88 m (6' 2") | Wt 98.476 kg (217 lb 1.6 oz) | BM I 27.86 kg/m2 | SpO2 96% RA General Appearance: Alert, cooperative, no distress, appears stated age Head: Normocephalic, without obvious abnormality, atraumatic Eyes: PERRL, conjunctiva clear, no scleral icterus, EOM's intact Ears: Normal TM's, external auditory canals, normal acuity Nose: Nares normal, septum midline, mucosa normal Mouth: No oral lesions or exudate Neck: Supple, symmetrical, no adenopathy Lungs: No accessory muscle use, breath sounds are slightly diminished bilaterally with on e area of wheezing, no crackles or rhonchi Chest Wall: No deformity Heart: Regular rate and rhythm, no murmur, rub or gallop Abdomen: Soft, non-tender, non-distended Extremities: No cyanosis, clubbing, or edema Pulses: Radial pulses 2+ and symmetric Skin: Warm and dry Lymph nodes: Cervical and supraclavicular nodes normal Data: Immunization History Administered Date(s) Administered INFLUENZA, QUADRIVALENT PRESERVATIVE FREE (PED/ADOL/ADULT) 11/07/2014 INFLUENZA, TRIVALENT PRESERVATIVE FREE (PED/ADOL/ADULT) 09/18/2012, 07/17/2013 PNEUMOCOCCAL POLYSACCHARIDE 23-VALENT (PPSV23) 04/25/2014 TDAP, (ADOL/ADULT) 07/03/2012 Assessment 1. Asthma, moderate persistent, uncomplicated - Improved on high dose Advair, which we will continue. His breathing improves significantly when he stops smoking, and we continue to wo rk on this. 2. Allergic rhinitis due to pollen - He has had minimal symptoms, and is not on treatment. 3. Tobacco abuse - Ongoing. Relapsed, likely due to too rapid of decrease in nicotine patch dose. I have ordered a longer term dose, 2 months of the 21 mg and 2 months of the 14 mg. U sing the patch for longer period of time is preferable to relapsing. I also suggested consid ering the lozenge or gum as he tapers off of these. He plans to try to quit again in early ay. Plan 1.Continue Advair 500 mcg dose. 2.Nicotine patches prescribed as above. 3.Continue albuterol as needed. 3 minutes was spent on counseling regarding smoking cessation. He was advised to call if new pulmonary symptoms were to develop. Return to clinic in 4 months, or sooner with concerns. CC: Daniel Cannon Portions of this report were transcribed using voice recognition software. Every effort wa s made to ensure accuracy; however, inadvertent computerized mortgage processor errors may be pre sent. documented in t his encounter Plan of Treatment +--------+ + + + + | Date | Type | Specialty | Care Team | Description | +--------+ + + + + | 01/01/ | Appointment | Radiation Oncology | Naida Burnette | | | 2019 | | | MD [address] | | | | | | [place], [place] | | | | | | [address] | | | | | | | | +--------+ + + + + documented as of this encounter Visit Diagnoses + + | Diagnosis | + + | Asthma, moderate persistent, uncomplicated - Primary | + + | Allergic rhinitis due to pollen | + + | Tobacco abuse Tobacco use disorder | + + documented in this encounter
--- OUTSIDE RECORDS SUMMARY | ~2019-10-09 | XMS | Encounter Summary ---
Demographics + + + | Address | [address] | | | [place] [address] | + + + | Home Phone | | + + + | Preferred Language | Unknown | + + + | Marital Status | | + + + | Yarsani Affiliation | Unknown | + + + | Race | Unknown | + + + | Ethnic Group | Unknown | + + + Author + + + | Author | [facility] | | | and [place] | + + + | Organization | [facility] | | | [...] Team Providers + +------+ + | Care Media Producer Name | Role | Phone | + [...] Description | +--------+--------+ + + + | 10/04/ | Refill | [facility] [place] | [place], | Medication Refill | | 2012 | | PULMONARY [address] | Latisha Dominguez MD | | | | | [place], | | | | | | [place] [address] | | | | | | [phone] | | | +--------+--------+ + + + [...] [place] | | | | | | [address] | | | | | | | | +--------+ + + + + documented as of this encounter Visit Diagnoses Not on filedocumented in this encounter"
--- OUTSIDE RECORDS SUMMARY | ~2019-10-09 | XMS | Encounter Summary ---
Demographics + + + | Address | [address] | | | [place] [address] | + + + | Home Phone | | + + + | Preferred Language | Unknown | + + + | Marital Status | | + + + | Advent Affiliation | NRP | + + + | Race | White | + + + | Ethnic Group | Not or | + + + Author + + + | Author | [facility] | + + + | Organization | [facility] | + + + | Address | Unknown | + + + | Phone | Unavailable | + + + Support + + + + + | Name | Relationship | Address | Phone | + + + + + | Cecile Chowdhury | ECON | [address] | | | | | [place] [address] | | + + + + + Care Team Providers + +------+ + | Care Hand Miter Operator Name | Role | Phone | + +------+ + | Daniel Cannon MD | PCP | | + +------+ + Encounter Details +--------+ + + + + | Date | Type | Department | Care Team | Description | +--------+ + + + + | 07/11/ | Telephone | Otolaryngology | Pasquale Moscoso | | | 2017 | | Laryngology Services | MD [place] [address] | | | | | at [facility] [address] | | | | | [place], | [place], [place] | | | | | [place] [address] | [address] | | | | | [phone] | [phone] | | | | | | | [...] 2019 | Visit | | MD [place] [address] | | | | | | [address] | | | | | | [facility] [place] | | | | | | [address] | | | | | | [phone] | | | | | | | | +--------+---------+ + + + documented as of this encounter Visit Diagnoses Not on filedocumented in this encounter"
--- OUTSIDE RECORDS SUMMARY | ~2019-10-09 | XMS | Encounter Summary ---
Demographics + + + | Address | [address] | | | [place] [address] | + + + | Home Phone | | + + + | Preferred Language | Unknown | + + + | Marital Status | | + + + | Latter-Day Affiliation | NRP | + + + | Race | White | + + + | Ethnic Group | Not or | + + + Author + + + | Author | [facility] | + + + | Organization | [facility] | + + + | Address | Unknown | + + + | Phone | Unavailable | + + + Support + + + + + | Name | Relationship | Address | Phone | + + + + + | Cecile Chowdhury | ECON | [address] | | | | | [place] [address] | | + + + + + Care Team Providers + +------+ + | Care Stave Cutting Supervisor Name | Role | Phone | + +------+ + | Daniel Cannon MD | PCP | | + +------+ + Encounter Details +--------+ + + + + | Date | Type | Department | Care Team | Description | +--------+ + + + + | 11/13/ | Documentati | Otolaryngology | Pasquale Moscoso | | | 2019 | on | Laryngology Services | MD [place] [address] | | | | | at [facility] [address] | | | | | [place], | [place], [place] | | | | | [place] [address] | [address] | | | | | [phone] | [phone] | | | | | | | [...] | Visit | | MD [place] [address] | | | | | | [facility] | | | | | | [place], [place] | | | | | | [address] | | | | | | [phone] | | | | | | | | +--------+---------+ + + + documented as of this encounter Visit Diagnoses Not on filedocumented in this encounter"
--- OUTSIDE RECORDS SUMMARY | ~2019-10-09 | XMS | Encounter Summary ---
Demographics + + + | Address | [address] | | | [place] [address] | + + + | Home Phone [...] Team Providers + +------+ + | Care Vein Pumper Name | Role | Phone | + +------+ + PCP | Unavailable | + +------+ + Encounter Details +--------+ + + + + | Date | Type | Department | Care Team | Description | +--------+ + + + + | 06/29/ | Abstract | [place] [facility] | [facility] | | | 2011 | | Conversion Location | [facility] | | | | | [phone] | | | +--------+ + + + [...] + + + | Blood Pressure | 112/70 | 02/17/2012 12:00 AM | | | | | PDT [...] + + + + | Weight | 88.8 kg (195 lb 11.2 | 02/17/2012 12:00 AM | | | | oz) | PDT | | + + + + + | Height | 189.2 cm (6' 2.5") | 02/17/2012 12:00 AM | | | | | PDT | | + + + + + | Body Mass Index | 24.87 | 02/17/2012 12:00 AM | | | | | PDT | | + + + + + documented in this encounter Plan of Treatment +--------+ + + + + | Date | Type | Specialty | Care Team | Description | +--------+ + + + + | 01/01/ | Appointment | Radiation Oncology | Naida Burnette | | | 2020 | | | MD [address]i [address] | | | | | | [place] | | | | | | [address] | | | | | | | | +--------+ + + + + documented as of this encounter Visit Diagnoses Not on filedocumented in this encounter
--- OUTSIDE RECORDS SUMMARY | ~2019-10-09 | XMS | Encounter Summary ---
Demographics + + + | Address | [address] | | | [place] [address] | + + + | Home Phone | | + + + | Preferred Language | Unknown | + + + | Marital Status | | + + + | Taoist Affiliation | NRP | + + + | Race | White | + + + | Ethnic Group | Not or | + + + Author + + + | Author | [facility] | + + + | Organization | [facility] | + + + | Address | Unknown | + + + | Phone | Unavailable | + + + Support + + + + + | Name | Relationship | Address | Phone | + + + + + | Cecile Chowdhury | ECON | [address] | | | | | [place] [address] | | + + + + + Care Team Providers + +------+ + | Care Marketing Graphics Specialist Name | Role | Phone | + [...] Closed | | Radiology | Diagnoses | Blanka, | Rad Ct Scan | | | | | Malignant | Pasquale S, | [facility] [address] | | | | | neoplasm of | [address] | | | | | glottis | [address] | Mailcode: | | | | | (HCC) | [facility] | [facility] | | | | | Pharyngeal | [place], [place] | for Health | | | | | dysphagia | [address] | and Healing, | | | | | Dysphonia | Phone: | Building [address], | | | | | Tobacco | [phone] | 3rd Floor | | | | | abuse | Fax: | [place], [place] | | | | | Procedures | [phone] | [address] | | | | | CT CHEST WO | | Phone: | | | | | CONTRAST AR | | [phone] | | | | | CT | | Fax: | | | | | SCAN,THORAX, | | [phone] | | | | | W/O CONTRAST | | | +--------+--------+ + + + + Reason for Visit + + + | Reason | Comments | + + + | Follow-up visit | | + + + Consultation (Routine) + +--------+ + + + + | Status | Reason | Specialty | Diagnoses / | Referred By | Referred To | | | | | Procedures | Contact | Contact | + +--------+ + + + + | Authorized | | Otolaryngolog | | Non[facility] | Ent | | | | y | | Epic Dept | Laryngology | | | | | | | [facility] [address] | | | | | | | [address] | | | | | | | [place], [place] | | | | | | | [address] | | | | | | | Phone: | | | | | | | [phone] | | | | | | | Fax: | | | | | | | [phone] | + +--------+ + + + + Encounter Details +--------+---------+ + + + | Date | Type | Department | Care Team | Description | +--------+---------+ + + + | 06/20/ | Office | Otolaryngology | Pasquale Moscoso | T3N0 SCCa, right | | 2019 | Visit | Laryngology Services | MD [place] [address] | glottis (Primary | | | | at [facility] [address] | Dx); Pharyngeal | | | | [address] [place], | [facility] [place] | dysphagia; | | | | [place] [address] | [address] | Dysphonia; Tobacco | | | | [phone] | [phone] | abuse; History of | | | | | | radiation therapy; | | | | | | Chronic | | | | | | laryngopharyngitis | +--------+---------+ + + + Social History [...] Weight | 95.3 kg (210 lb) | 06/20/2019 11:30 AM | | | | | PDT | | + + + + + | Height | - | - | | + + + + + | Body Mass Index | 26.96 | 06/20/2018 2:00 PM | | | | | PDT [...] documented as of this encounter Progress Notes Pasquale Moscoso MD - 06/20/2019 11:15 AM PDT PATIENT NAME: Ronni Chowdhury [facility] MR#: [id number] : 1970 REFERRING PROVIDER: Daniel Cannon MD [address] [address] PRIMARY CARE PHYSICIAN: Daniel Cannon MD CLINIC: [facility] REASON FOR FOLLOW-UP: Chief Complaint Patient presents with Follow-up visit TUMOR TYPE/LOCATION: squamous cell carcinoma, right glottis TNM/STAGE: [id number]/Stage III IDENTIFICATION DATE: 1) 11/29/17; 3) Reidentified 06/20/18 SURGICAL EXCISION DATE: 1) 01/16/18 TYPE OF SURGERY: supracricoid partial laryngectomy with cricohyoidoepiglottopexy, right mod ified radical neck dissection RADIATION THERAPY COMPLETED: 09/21/18 RADIATION THERAPIST: Naida Grover MD RADIATION DOSE: 7000 cGy to primary site. 5400 cGy to neck bilaterally CHEMOTHERAPY GIVEN: No MEDICAL ONCOLOGIST: Javier Montaño MD --------- HPI: Mr. Chowdhury is a 48 y.o. male who returns for follow up of his squamous cell carcinoma. He had persistent disease noted following supracricoid partial laryngectomy and underwent radiation therapy with Dr. Grover, finishing in September of last year. Mr. Chowdhury returns noting that he feels "good." He notes no new problems. He denies throat pain. He has not noted any otalgia. He has not noted any voice change since the last visit . He denies stridor or noisy breathing. He does not note dyspnea on exertion. He continues to smoke. He has started to use electronic cigarettes to minimize traditional tobacco ciga rettes, but is still smoking over a half pack daily. He is not maintained on a proton pump inhibitor. He notes no symptoms of reflux, including heartburn, indigestion, acidic taste or belching. PMHx: Past Medical History: Diagnosis Date Alcohol [...] IIa-IV Tracheotomy 01/16/2018 Dr. Moscoso-- #8 DCT Zachery Supracricoid partial laryngectomy Right 01/16/2018 Dr. Moscoso-- left arytenoid spared Cricohyoidoepiglottopexy 01/16/2018 Dr. Moscoso Direct laryngoscopy with biopsy with microscope Right 06/20/2018 Dr. Moscoso-- persisent SCCa identified Incision and drainage of deep abscess of soft tissues of neck Right 06/20/2018 Dr. Blanka-- actinomyces sp. identified ALLERGIES: No Known Allergies MEDICATIONS: Current Outpatient Medications Medication Sig albuterol 90 mcg/actuation inhalation HFA aerosol inhaler Inhale 1-2 puffs by mouth rashawn ry four hours as needed (shortness of breath, wheezing). amLODIPine 10 mg oral tablet Take 10 mg by mouth once daily. Indications: hypertension No current facility-administered medications for this visit. EXAMINATION: Wt 95.3 kg (210 lb) | BMI 26.96 kg/m | BSA 2.23 m Gen: He is a 48 y.o. male. He is awake, alert and [...] concerning lesions or masses. Neck: The neck has a healed apron incision. The skin has a mildly woody feel, but is intac t. There is no crepitance noted. There is no lymphadenopathy noted. The larynx is absent and the pexis is intact. Chest: Chest rise is symmetric and there [...] and symmetric throughout. The pupils are equal. Call Center Recruiter strength does jessica ear full bilaterally. Facial [...] dysphonia which is severe. The pitch is low for a male and shows markedly limited range. Vocal intensity is low and shows markedly limited upper range. There is 3+ roughness, 1-2+ breathiness, 1+ asthenia and 1 -2+ tightness appreciated. There is no tremor noted with sustained vowel phonation. I am u nable to detect voice breaks. Glottal parsons is not detected. There is no diplophonia noted. Articulation is normal. Resonance is normal. FLEXIBLE LARYNGOSCOPY: Laryngoscopy was performed using a distal-chip Olympus flexible vi deolaryngoscope following the topical nasal application of oxymetazoline and pontocaine. Th is was performed because the patient's gag reflex precluded adequate transoral indirect millie ngoscopy. This notes an intact upper portion of the epiglottis. This is crisp, midline and without worrisome lesions. All the mucosa of the larynx, oropharynx and hypopharynx is mil dly diffusely red appearance. No lesions or ulcers are noted. The base of tongue is clear and free of worrisome lesions or masses. The laryngeal introitus notes an intact pexis. T here are no masses, ulcers or granulomas near this. The neoglottis is without worrisome les ions, ulceration or masses. There is trace crusting noted. The left arytenoid is present. It is is fully mobile. The remaining arytenoid is sensate. Closure is complete with estephanie th holding. The subglottic airway is patent and without lesions or masses. It was well vis ualized today. ASSESSMENT: Mr. 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 He continues to look good. There is no evidence of recurrent o r persistent disease at this time. The mucosa appears radiated with a diffuse chronic laryng itis consistent with tobacco abuse, but no worrisome lesions or masses. We talked again today for a while about tobacco abuse. I noted that we simply do not know the cancer risk associated with electronic cigarettes and nicotine vapors, but if used as a means to help quit smoking the products may have a valuable role in treating nicotine addic tion. He admits that he is really only marginally interested in quitting smoking. PLAN: I recommended continued periodic observation of his larynx. Hopefully, he will cont inue to work on quitting smoking, but I am not very optimistic. I will see him back in appr oximately 3 months, or sooner if symptoms worsen. I will plan a CT-scan of the chest and TS H at that time Pasquale Moscoso M.D. Ict Teacher Laryngology and Head & Neck Surgery d ocumented in this encounter Plan of Treatment +--------+---------+ + + + | Date | Type | Specialty | Care Team | Description | +--------+---------+ + + + | 03/19/ | Office | Otolaryngology | Pasquale Moscoso | | | 2019 | Visit | | MD [facility] [address] [facility] | | | | | | [address] | | | | | | [place], [place] | | | | | | [address] | | | | | | [phone] | | | | | | | | +--------+---------+ + + + documented as of this encounter Procedures + +--------+ + + + | Procedure Name | Priori | Date/Time | Associated Diagnosis | Comments | | | ty | | | | + +--------+ + + + | AR | Routin | 06/28/2019 | T3N0 SCCa, right | | | LARYNGOSCOPY,FLEXIBL | e | 8:08 PM | glottis Pharyngeal | | | E, DIAGNOSTIC | | PDT | dysphagia Dysphonia | | | | | | History of | | | | | | radiation therapy | | | | | | Chronic | | | | | | laryngopharyngitis | | + +--------+ + + + documented in this encounter Results CT CHEST WO CONTRAST (09/21/2019 11:56 AM PST) + + | Specimen | + + | | + + + + + | Narrative | Performed At | + + + | EXAM: CT CHEST WO CONTRAST HISTORY: Laryngeal cancer | [facility] | | COMPARISON: Outside CT 12/15/2017 TECHNIQUE: Helical scanning was | RADIOLOGY VOICE | | obtained of the chest without intravenous contrast and reviewed in | RECOGNITION 2 | | soft tissue and lung algorithm. Coronal and sagittal images were also | | | generated. FINDINGS: The visualized portions of the thyroid | | | are unremarkable. Conventional three-vessel anatomy of the aortic | | | branches. The heart is normal in size. No pericardial effusion. No | | | pathologically enlarged thoracic lymph nodes. The lungs are clear. | | | There is no pulmonary nodule or consolidation. No pleural effusion. | | | No pneumothorax. No pulmonary edema. The central airways are patent. | | | Trace biapical emphysematous changes are present. The visualized | | | portions of the upper abdomen are unremarkable. No acute or | | | suspicious osseous abnormality. IMPRESSION: No evidence of | | | metastatic disease within the chest. I have personally reviewed | | | the images and, if necessary, edited the report. I agree with the | | | report as now presented. Final signature: Rick Rico MD | | | 09/21/2019 3:26 PM Preliminary: Radha Silver MD Dictation | | | initiated: Radha Silver MD 09/21/2019 2:22 PM | | + + + + + | Procedure Note | + + | Service Account, Radiant Res In Interface - 09/21/2019 3:27 PM PST EXAM: CT CHEST WO | | CONTRAST HISTORY: Laryngeal cancer COMPARISON: Outside CT 12/15/2017 TECHNIQUE: Helical | | scanning was obtained of the chest without intravenous contrast and reviewed in soft | | tissue and lung algorithm. Coronal and sagittal images were also generated. FINDINGS: | | The visualized portions of the thyroid are unremarkable. Conventional three-vessel | | anatomy of the aortic branches. The heart is normal in size. No pericardial effusion. | | No pathologically enlarged thoracic lymph nodes. The lungs are clear. There is no | | pulmonary nodule or consolidation. No pleural effusion. No pneumothorax. No pulmonary | | edema. The central airways are patent. Trace biapical emphysematous changes are present. | | The visualized portions of the upper abdomen are unremarkable. No acute or suspicious | | osseous abnormality. IMPRESSION: No evidence of metastatic disease within the chest. I | | have personally reviewed the images and, if necessary, edited the report. I agree with | | the report as now presented. Final signature: Rick Rico MD 09/21/2019 3:26 PM | | Preliminary: Radha Silver MD Dictation initiated: Radha Silver MD | | 09/21/2019 2:22 PM | | | |No acute or suspicious osseous abnormality. | | | |IMPRESSION: | | | |No evidence of metastatic disease within the chest. | | | |I have personally reviewed the images and, if necessary, edited the report. I agree with th e report as now presented. | | | |Final signature: Rick Rico MD 09/21/2019 3:26 PM | |Preliminary: Radha Silver MD | |Dictation initiated: Radha Silver MD 09/21/2019 2:22 PM | + + + +---------+ + [...] neoplasm of glottis | + + | Pharyngeal dysphagia Dysphagia, pharyngeal phase | + + | Dysphonia | + + | Tobacco abuse Tobacco use disorder | + + | History of radiation therapy Personal history of irradiation, presenting hazards to | | health | + + | Chronic laryngopharyngitis | + + documented in this encounter
--- OUTSIDE RECORDS SUMMARY | ~2019-10-09 | XMS | Encounter Summary ---
Demographics + + + | Address | [address] | | | [place] [address] | + + + | Home Phone | | + + + | Preferred Language | Unknown | + + + | Marital Status | | + + + | Judaism Affiliation | NRP | + + + | Race | White | + + + | Ethnic Group | Not or | + + + Author + + + | Organization | Unknown | + + + | Address | Unknown | + + + | Phone | Unavailable | + + + Support + + + + + | Name | Relationship | Address | Phone | + + + + + | Cecile Chowdhury | BRIANNA | [address] | | | | | [place] [address] | | + + + + + Care Team Providers + +------+ + | Care Tempering Kiln Tender Name | Role | Phone | + +------+ + | Daniel Cannon MD | PCP | | + +------+ + Encounter Details +--------+--------+ + + + | Date | Type | Department | Care Team | Description | +--------+--------+ + + + | 09/21/ | Travel | | | | | 2018 | | | | | +--------+--------+ + [...] [address] | | | | | | [place] | | | | | | [address] | | | | | | [phone] | | | | | | | | +--------+---------+ + + + documented as of this encounter Visit Diagnoses Not on filedocumented in this encounter"
--- OUTSIDE RECORDS SUMMARY | ~2019-10-09 | XMS | Encounter Summary ---
Demographics + + + | Address | [address] | | | [place] [address] | + + + | Home Phone | | + + + | Preferred Language | Unknown | + + + | Marital Status | | + + + | Church Affiliation | Unknown | + + + [...] Team Providers + +------+ + | Care Terrazzo Polisher Name | Role | Phone | + +------+ + | Daniel Cannon MD | PCP | | + +------+ + Encounter Details +--------+ + + + + | Date | Type | Department | Care Team | Description | +--------+ + + + + | 07/22/ | Hospital | [facility] | Naida Burnette | | | 2018 | Encounter | MED CTR RADIATION | MD Brad [address] | | | | | ONCOLOGY [address] [place] | | | | | [place], | [address] | | | | | [place] [address] | | | | | | [phone] | | | +--------+ + + + [...]
--- OUTSIDE RECORDS SUMMARY | ~2019-10-09 | XMS | Encounter Summary ---
Demographics + + + | Address | [address] | | | [place] [address] | + + + | Home Phone | | + + + | Preferred Language | Unknown | + + + | Marital Status | | + + + | Mosque Affiliation | Unknown | + + + | Race | Unknown | + + + | Ethnic Group | Unknown | + + + Author + + + | Author | [facility] | | | and [place] | + + + | Organization | [facility] | | [...] Team Providers + +------+ + | Care Distribution Spec Name | Role | Phone | + +------+ + | Daniel Cannon MD | PCP | | + +------+ + Encounter Details +--------+ + + + + | Date | Type | Department | Care Team | Description | +--------+ + + + + | 09/21/ | Documentati | [facility] | Naida Burnette | | | 2018 | on | MED CTR RADIATION | MD Brad [address] | | | | | ONCOLOGY CLIN[facility] [address] | [place] | | | | | [address] [place] | [address] | | | | | [place] [address] | | | | | | [phone] | | | +--------+ + + + [...] encounter Progress Notes Naida Burnette MD - 09/21/2018 10:34 AM PST Radiation Treatment Summary Diagnosis: Malignant neoplasm of glottis (HCC) 11/29/2017 Initial Diagnosis Presented in late 2017 with hoarse voice 11/29/17 biopsy right vocal cord: invasive squamous cell carcinoma, moderately different iated and keratinizing, p16 negative Clinical stage T3N0 with impaired mobility 01/16/2018 Surgery Surgeon: Dr. 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 Pathologic stage DALY, T4aN0 06/20/2018 - Recurrence In mid-May he developed an anterior right neck mass CT neck on 05/29/18 at [facility] abscess at anterior neck. I&D and antibiotics on 05/29/18. F/U with Dr. Monge on 06/07/18 and FNA of the lesion w as negative for carcinoma. PET/CT, anterior right neck measuring 2.3 x 2 x 1 cm, SUV 11.5, corresponding to the abs cess. No lesions demonstrated in the larynx or airway, no malignant-appearing adenopathy. Surgical exploration on 06/20/18 with I&D and biopsy of the abscess was negative for leanne strange. At the time of surgery he also evaluated the airway and incidentally found "A small r egion of what appeared to be scar tissue was biopsied just inferior to the right arytenoid m ound near the pexis site." Pathology of this lesion proved to be recurrent squamous cell car cinoma, moderately differentiated. 08/02/2018 - 09/21/2018 Radiation Therapy 70 Gy in 35 fractions, radiation alone, to larynx and prophylactic treatment of the regio nal lymphatics to 54 Gy (concurrently with IMRT/VMAT dose painting). Treatment Dates: Ronni was treated in our clinic between the dates of 08/02/2018 - 09/21/2018. Intent: Curative Prescription: C1: Larynx (Plan ID - HnN 70) - Rx Dose 7,000cGy (Status - Treatment Approved) - 35 Treatment Technique: VMAT Treatment Summary: Course: C1: Larynx Treatment Site Ref. ID Energy Dose/Fx (cGy) #Fx Dose Correction (cGy) Total Dose (cGy) Star t Date End Date Elapsed Days HnN 70 PTV70 6X 200 35 / 35 0 7,000 08/02/2018 09/21/2018 50 Total: 7,000 08/02/2018 09/21/2018 50 Assessment: Ronni Chowdhury completed the planned course of course of external beam radiation therapy un eventfully and without any unexpected complications. He did experience recurrence of anterio r neck swelling, at the site of prior abscess. He was unable to tolerate the prescribed p enicillin, and did not complete recommended course. Mid way through radiation he was restar charo on antibiotics, with amoxicillin. This also caused diarrhea, however he was able to dina erate treatment. Abscess site appeared to respond to antibiotics. Disposition: - Consult with ID physician pending, in the interim continue amoxicillin. - Follow-up with Dr. Moscoso within the next few months. Anticipate surveillance visits to alternate between us on at least an every 3 month basis. - Post-radiation CT with contrast and clinical follow-up with me in 3 months. Ronni Chowdhury was encouraged to call our clinic with any further questions or concerns. Thank you for allowing me to participate in his care. If you should have any questions regar ding this treatment summary, please do not hesitate to contact me. Naida Burnette MD Radiation Oncologist Department of Radiation Oncology [facility] This note was transcribed using [employer] speech recognition software. As a result, there may be unintended for medical and/or spelling errors. Every attempt is made to correct dictati on. If there are any questions or errors please contact our office. CC: Patient Care Team: Daniel Cannon MD as PCP - General (Family Medicine) Jorje Castillo MD as Consulting Physician (Otolaryngology) Pasquale Moscoso MD as Consulting Physician (Otolaryngology) Earlene Whitlock RDN as Registered Dietitian (Dietitian) Naida Burnette MD as Physician (Radiation Oncology) documented in this encounter Plan of Treatment +--------+ + + + + | Date | Type | Specialty | Care Team | Description | +--------+ + + + + | 01/01/ | Appointment | Radiation Oncology | Naida Burnette | | | 2019 | | | MD [address] | | | | | | [address] [place] | | | | | | [address] | | | | | | | | +--------+ + + + + documented as of this encounter Visit Diagnoses + + | Diagnosis | + + | Malignant neoplasm of glottis (HCC) - Primary Malignant neoplasm of glottis | + + documented in this encounter
--- OUTSIDE RECORDS SUMMARY | ~2019-10-09 | XMS | Encounter Summary ---
Demographics + + + | Address | [address] | | | [place] [address] | + + + | Home Phone | | + + + | Preferred Language | Unknown | + + + | Marital Status | | + + + | Adventism Affiliation | NRP | + + + | Race | White | + + + | Ethnic Group | Not or | + + + Author + + + | Author | [facility] | + + + | Organization | [facility] | + + + | Address | Unknown | + + + | Phone | Unavailable | + + + Support + + + + + | Name | Relationship | Address | Phone | + + + + + | Cecile Chowdhury | ECON | [address] | | | | | [place] [address] | | + + + + + Care Team Providers + +------+ + | Care Ballpoint Pens Assembler Name | Role | Phone | [...] Pharmacy | | | | | | [address] | | | | | | [address] [place], [place] | | | | | | [address] | | | | | | [phone] | | | +--------+ + + + [...] 2020 | Visit | | MD Sidney [address] | | | | | | [address] | | | | | | [place], [place] | | | | | | [address] | | | | | | [phone] | | | | | | | | +--------+---------+ + + + documented as of this encounter Visit Diagnoses Not on filedocumented in this encounter"
--- OUTSIDE RECORDS SUMMARY | ~2019-10-09 | XMS | Encounter Summary ---
Demographics + + + | Address | [address] | | | [place] [address] | + + + | Home Phone | | + + + | Preferred Language | Unknown | + + + | Marital Status | | + + + | Mormon Affiliation | Unknown | + + + | Race | Unknown | + + + | Ethnic Group | Unknown | + + + Author + + + | Author | [facility] | | | and [place] | + + + | Organization | [facility] | | | and [...] Team Providers + +------+ + | Care Thread Singer Name | Role | Phone | + +------+ + | Daniel Cannon MD | PCP | | + +------+ + Reason for Visit Evaluate & Treat (Routine) + +--------+ + + + + | Status | Reason | Specialty | Diagnoses / | Referred By | Referred To | | | | | Procedures | Contact | Contact | + +--------+ + + + + | Authorized | | Radiation | Diagnoses | [facility] | | | | Oncology | SCC glottis | Radiation | Naida Salinas MD | | | | | Procedures | Oncology | [address] | | | | | OFFICE | Clinic [address] | | | | | VISIT | [address] | [place], | | | | | EXTENDED | [place], | [place] [address] | | | | | | [place] | Phone: | | | | | | [address] | [phone] | | | | | | Phone: | Fax: | | | | | | [phone] | [phone] | | | | | | Fax: | | | | | | | [phone] | | + +--------+ + + + + Encounter Details +--------+ + + + + | Date | Type | Department | Care Team | Description | +--------+ + + + + | 07/02/ | Hospital | [facility] | Naida Burnette | Malignant neoplasm | | 2019 | Encounter | [facility] | MD Brad [address] | of glottis (HCC) | | | | ONCOLOGY CLINIC [address] | [place], [place] | (Primary Dx) | | | | [address] [place] | [address] | | | | | [place] [address] | | | | | | [phone] | | | +--------+ + + + [...] | 42 Standard drinks | 35.0 | Alcoholic | | | or equivalent | | Drinks/day: daily | + + +---------+ + + [...] + + + | Blood Pressure | 155/98 | 07/02/2019 10:21 AM | | | | | PDT | | + + + + + | Pulse | 95 | 07/02/2019 10:21 AM | | | | | PDT | | + + + + + | Temperature | 37 C (98.6 F) | 07/02/2019 10:21 AM | | | | | PDT | | + + + + + | Respiratory Rate | 16 | 07/02/2019 10:21 AM | | | | | PDT | | + + + + + | Oxygen Saturation | 96% | 07/02/2019 10:21 AM | | | | | PDT | | + + + + + | Inhaled Oxygen | - | - | | | Concentration | | | | + + + + + | Weight | - | - | | + + + + + | Height | - | - | | + + + + + | Body Mass Index | - | - | | + + + + + documented in this encounter Discharge Instructions Patient Instructions Veronica Smith RN - 07/02/2019 10:33 AM PDT1) Keep appointment at [facility] in September with imaging and labs. 2) Schedule follow up with Dr. Burnette in December of 2019. documented in this encounter Medications at Time [...] encounter Progress Notes Naida Burnette MD - 07/02/2019 10:24 AM PDT Radiation Oncology Follow-up Chief Complaint/ICD10 ICD-10-CM ICD-9-CM 1. 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 Moscoso, [facility] Surgery indicated: Supracricoid partial laryngectomy sparing left [...] neck mass CT neck on 05/29/18 at [facility] abscess at anterior neck. I&D and antibiotics [...] 54 Gy (concurrently with IMRT/VMAT dose painting). Ronni Chowdhury completed radiation 9 months ago, he returns for routine follow-up. - His [address] and F/U raised concern for progressive abnormality at the l eft piriformis. Clinically he was doing well with no difficulty swallowing or pain. - 04/04/2019- fu with Dr. Aleman of ID @ [facility]. 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 - F/U with Dr. Moscoso in February and again on 06/20/2019 has been reassuring that there are no signs of disease recurrence. He is scheduled for chest CT on 09/21/19 w/another fu w/Dr. Moscoso. Ronni feels well he has stable voice quality which is quite hoarse. No difficulty or pain with swallowing. He has not identified any lumps or nodules. Appetite, energy and weight a re stable. 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 No eviden ce of recurrent infection. He does continue to smoke. Review of systems: Constitutional: Reports occasional night sweats. Denies fatigue. Denies high fevers, shakin g chills, anorexia, nausea, vomiting, weight loss. Appetite without changes. Ear, Nose, Mouth, Throat: Reports tinnitus at baseline unchanged. Hoarse voice continues. Denies odynophagia, dysphagia. Cardiovascular: Denies shortness of breath, dyspnea on exertion, chest pain, palpitations o r orthopnea. Respiratory: Reports baseline coughing continues. Denies hemoptysis, or sputum production. Reports continued smoking, 1 pack per day. Gastrointestinal: Denies abdominal pain, constipation, diarrhea, melena, or bright red bloo d per rectum. Genitourinary: Denies hematuria or dysuria. Musculoskeletal: R neck stiffness unchanged. Denies joint pain or tenderness. Neurologic: Denies headache, visual changes, or numbness/tingling of the extremities. Endocrine: Denies peripheral edema or heat/cold intolerance. Hematologic: Denies spontaneous bruising or bleeding. Integumentary: Denies rash, wounds or other skin concerns. Pain: Denies pain today. Note: Here for follow up with Dr. Burnette, requested by patient. My chart: Active Pain assessment: none currently reported Current Outpatient Medications Medication Sig Dispense Refill acetaminophen (TYLENOL) 500 mg tablet Take 1 tablet by mouth. ADVAIR DISKUS 500-50 MCG/DOSE diskus inhaler inhale 1 puff by mouth INTO THE LUNGS 2 TI MES DAILY (Patient not taking: Reported on 09/21/2018) 60 each 11 amLODIPine (NORVASC) 10 MG tablet Take by mouth Daily. egsjqxfodrEACOH-slzctvpvu-wlxenzic & magnesium hydroxide-simethicone (MAGIC MOUTHWASH) Swish and swallow 5 mLs every 4 hours as needed for Pain. (RECIPE = 1:1:1 mixture of Maalox, diphenhydrAMINE, viscous lidocaine) (Patient not taking: Reported on 09/21/2018) 250 mL 3 gabapentin (NEURONTIN) 300 mg capsule Take by mouth 3 times daily as needed. PROAIR HFA 108 (90 BASE) MCG/ACT inhaler inhale 2 puffs by mouth INTO THE LUNGS EVERY 4 HOURS NEEDED FOR WHEEZING (Patient not taking: Reported on 07/02/2019) 8.5 g 6 sildenafil (VIAGRA) 100 MG tablet Take 100 mg by mouth as needed for Erectile Dysfuncti on. Take 1 tablet by mouth daily 1 hour before if needed. No current facility-administered medications for this encounter. Allergies No active allergies Intolerance No active intolerances/contraindications Vitals: 07/02/19 1021 BP: (!) 155/98 Pulse: 95 Resp: 16 Temp: 37 C (98.6 F) Wt Readings from Last 3 Encounters: 12/27/18 97.4 kg (214 lb 11.7 oz) 10/04/18 97.9 kg (215 lb 12.8 oz) 09/21/18 97.2 kg (214 lb 4.6 oz) Physical Exam: General: Healthy appearing robust man in no acute medical distress. KPS: 90 HEENT: Pupils equal, round and reactive to light. No conjunctival icterus or injection. EOM I. Oral, moist mucus membranes. Well healed neck incision. Mild fibrosis. Lymphatic: No cervical, supraclavicular or axillary lymphadenopathy. Cardiovascular: Regular rate and rhythm, no murmur. Pulmonary: Breath sounds heard throughout, no adventitial sounds or increased work of breat dawn at rest. Extremities: Upper and lower extremities warm and well perfused with no upper or lower extr emity edema. Neurologic: Alert, oriented and appropriated in conversation. CN II-IX grossly intact. Moves all 4 extremities normally with normal gait. Psychiatric: Appropriate. Fiberoptic laryngoscopy/endoscopy: After verbal consent was obtained, we topically anesthetized the patient's nasal passages w ith 2% lidocaine with oxymetazoline. After inspection and palpation of the oral cavity and o ropharynx, we passed a flexible fiberoptic laryngoscope through a nasal passage to visualize the nasopharynx (fossae of Rosenmueller, torus tubarius, nasopharyngeal espitia), oropharynx (palatine tonsils, tongue base, palatoglossal/pharyngeal folds, oropharyngeal espitia), suprag lottic larynx (aryepiglottic folds, epiglottis, arytenoids, interarytenoid space, false voca l folds, ventricle), glottic larynx, and piriform sinuses. The subglottic larynx and postcri coid area were difficult to visualize. Relevant findings are reported here: Clear nasopharynx, oropharynx and stable postoperative changes in the larynx. Prior treatm ent related erythema has resolved. Mild residual mucosal edema. No masses. Good movement. Labs: No recent results. Imaging: No recent relevant results. Assessment: ICD-10-CM ICD-9-CM 1. 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 F/u with Dr. Moscoso has been reassuring. Hi story and exam today, including the laryngoscopy does not demonstrate any concerning finding s. No evidence of disease recurrence. I again strongly encouraged him to stop smoking. 5 minutes spent discussing classes and he lp-lines available for education and support. Medication support with nicotine replacement and other agents such as Chantix or Wellbutrin also discussed. He remains in the contemplat anika phase. Plan: 1) Keep appointment at [facility] in September with imaging and labs. Labs should include annual m onitoring of thyroid function. 2) Schedule follow up with Dr. Burnette in December of 2019. No orders of the defined types were placed in this encounter. Thank you for allowing me to participate in the care of Ronni Chowdhury. If you should have any questions regarding this evaluation, please do not hesitate to contact me. Naida Burnette M.D. Radiation Oncologist Department of Radiation Oncology [facility] Office: [phone] documented in this encounter Plan of Treatment +--------+ + + + + | Date | Type | Specialty | Care Team | Description | +--------+ + + + + | 01/01/ | Appointment | Radiation Oncology | Naida Burnette | | | 2019 | | | MD Brad [address] | | | | | | [facility] [place] | | | | | | [address] | | | | | | | | +--------+ + + + + documented as of this encounter Visit Diagnoses + + | Diagnosis | + + | Malignant neoplasm of glottis (HCC) - Primary Malignant neoplasm of glottis | + + documented in this encounter
--- OUTSIDE RECORDS SUMMARY | ~2019-10-09 | XMS | Encounter Summary ---
Demographics + + + | Address | [address] | | | [place] [address] | + + + | Home Phone | | + + + | Preferred Language | Unknown | + + + | Marital Status | | + + + | Sikh Affiliation | NRP | + + + | Race | White | + + + | Ethnic Group | Not or | + + + Author + + + | Author | [facility] | + + + | Organization | [facility] | + + + | Address | Unknown | + + + | Phone | Unavailable | + + + Support + + + + + | Name | Relationship | Address | Phone | + + + + + | Cecile Chowdhury | ECON | [address] | | | | | [place] [address] | | + + + + + Care Team Providers + +------+ + | Care Political Science Faculty Member Name | Role | Phone | + [...] | +--------+ + + + + | 06/20/ | Anesthesia | 4N INTRA OP 3161 | Daniel Wong MD | | | 2018 | Event | [address] | [address] | | | | | [facility] | [place], | | | | | Ambulatory Surgery | [place] [address] | | | | | Admitting Desk | [phone] | | | | | Located on the [facility] | | | | | | floor, Room 4519 | Tommy Chatman, | | | | | [place] | [address] | | | | | [address] | [address] | | | | | | [place], [place] | | | | | | [address] | | | | | | [phone] | | | | | | | | +--------+ + + + + Anesthesia Record + + + + + | Procedure Name | Responsible | Anesthesia Start | Anesthesia Stop Time | | | Anesthesiologist | Time | | + + + + + | DIRECT | Daniel Wong MD | 06/20/18 1544 | 06/20/18 2893 | | MICROLARYNGOSCOPY | | | | [...] | Total | + + + | propofol | 200 mg | + + + | lidocaine 2% | 100 mg | + + + | fentaNYL | 200 mcg | + + + | midazolam | 2 mg | + + + | rocuronium | 80 mg | + + + | glycopyrrolate | 0.8 mg | + + + | neostigmine | 4 mg | + + + | dexamethasone | 8 mg | + + + | ondansetron | 4 mg | + + + | dexmedetomidine | 30 mcg | + + + | ceFAZolin | 2,000 mg | + + + | PHENYLEPHrine | 200 mcg | + + + | lactated Ringers IV | 1,000 mL | + + + + + | Name | + + | O2 FR Avance (Total Liters) | + + | N2O FR Avance (l/min) | + + | Air FR Avance (l/min) | + + | Insp Sevo | + + | Et Sevo | + + | EtN2O % | [...] +--------+ + + + | Incisi | 06/20/18; 1630; Kacey Cardenas; Right; | 06/20/18 1630 by | | | on | Lateral; neck | Ling Collado RN | | +--------+ + + + | Drain | 06/20/18; 1710; Blanka; DERRICK; | 06/20/18 1710 by | | | | Right; neck | Ling Collado RN | | +--------+ + + + | Periph | MD Wong ; Left; Lateral; Hand; | 06/20/18 1612 by | 06/21/18 1045 by | | eral | 18 g; 06/21/18; 1045; Per order, | | Patti Gonzalez | | IV | Per protocol, Discharge | | CHARLES Hugo | +--------+ + + + | ETT | 06/20/18; 1610 (created via | 06/20/18 161 by | 06/20/181736 by | | | procedure documentation); | Tommy Chatman MD | Tommy Chatman MD | | | Endotracheal Tube; 6; Oral; | | | | | 06/20/18; 173 | | | +--------+ + + + [...] [address] | | | | | | [place], [place] | | | | | | [address] | | | | | | [phone] | | | | | | | | +--------+---------+ + + + documented as of this encounter Procedures + +--------+ + + + | Procedure Name | Priori | Date/Time | Associated Diagnosis | Comments | | | ty | | | | + +--------+ + + + | ANE ETT | Routin | 06/20/2018 | | Results for this | | | e | 4:10 PM | | procedure are in the | | | | PDT | | results section. | + +--------+ + + + documented in this encounter Results ANE ETT (06/20/2018 4:10 PM PDT) + + + | Narrative | Performed At | + + + | Tommy Chatman MD 06/20/2018 4:11 PM Procedure Reason | | | for Intubation: For surgical procedure, Location Performed: [place] , | | | Patient was preoxygenated Mask Ventilation Grade 2 - Ventilated by | | | mask with oral airway/adjuvant Intubation Blade type: Jean-Paul , | | | Blade size: 4, Atraumatic laryngoscopy: Atraumatic Laryngoscopy, | | | Intubation adjuncts: Stylet used , Laryngoscopic view: Grade I, | | | Fiberoptics used: N/A , Number of Attempts: 1, Positive for EtCO2: | | | Yes, Breath sounds: Bilateral and equal ETT ETT Size: 6 | | | ETT secured with: adhesive tape Depth at Lip: 23 Cm Airway | | | leak: No Narrative Attending physically present Performed by | | | Resident Smooth induction. Easy BMV. Grade 1 view with MAC 4, noted | | | normal epiglottis and unilateral arytenoid as per ENT notes with | | | absent vocal cords. ETT visualized passing glottic opening. Teeth | | | lips and tongue undamaged. | | + + + documented in this encounter Visit Diagnoses Not on filedocumented in this encounter Administered Medications + +--------+ + +------+------+ | Medication Order | MAR | Action | Dose | Rate | Site | | | Action | Date | | | | + +--------+ + +------+------+ | ceFAZolin (ANCEF) injection | Given | 06/20/20 | 2,000 mg | | | | INTRAPROCEDURE PRN, Starting Tue | | 18 4:05 | | | | | 06/20/18 at 1605, Until 06/20/18 | | PM PDT | | | | | at 1737 | | | | | | + +--------+ + +------+------+ +---+---+ | | | +---+---+ + +-------+ +------+---+---+ | dexamethasone (DECADRON) | Given | 06/20/20 | 8 mg | | | | injection INTRAPROCEDURE PRN, | | 18 4:11 | | | | | Starting 06/20/18 at 1611, | | PM PDT | | | | | Until 06/20/18 at 1737 | | | | | | + +-------+ +------+---+---+ +---+---+ | | | +---+---+ + +-------+ +--------+---+---+ | dexmedetomidine (PRECEDEX) | Given | 06/20/20 | 10 mcg | | | | injection INTRAPROCEDURE PRN, | | 18 5:08 | | | | | Starting 06/20/18 at 1608, | | PM PDT | | | | | Until 06/20/18 at 1737 | | | | | | + +-------+ +--------+---+---+ +-------+ +--------+---+---+ | Given | 06/20/20 | 20 mcg | | | | | 18 4:08 | | | | | | PM PDT | | | | +-------+ +--------+---+---+ +---+---+ | | | +---+---+ + +-------+ +--------+---+---+ | fentaNYL (SUBLIMAZE) injection | Given | 06/20/20 | 50 mcg | | | | INTRAPROCEDURE PRN, Starting Tue | | 18 4:07 | | | | | 06/20/18 at 1556, Until 06/20/18 | | PM PDT | | | | | at 1737 | | | | | | + +-------+ +--------+---+---+ +-------+ +---------+---+---+ | Given | 06/20/20 | 150 mcg | | | | | 18 3:56 | | | | | | PM PDT | | | | +-------+ +---------+---+---+ +---+---+ | | | +---+---+ + +-------+ +--------+---+---+ | glycopyrrolate (ROSA) | Given | 06/20/20 | 0.8 mg | | | | injection INTRAPROCEDURE PRN, | | 18 5:20 | | | | | Starting Tue06/20/18 at 1720, | | PM PDT | | | | | Until Tue06/20/18 at 1737 | | | | | | + +-------+ +--------+---+---+ +---+---+ | | | +---+---+ + + + +---+---+---+ | lactated Ringers IV 10 mL/hr, | given by | 06/20/20 | | | | | intravenous, PROCEDURE | | 18 5:06 | | | | | CONTINUOUS, Starting Tue06/20/18 | anesthes | PM PDT | | | | | at 1445, Until Tue06/20/18 at 1909 | iology | | | | | + + + +---+---+---+ + + +---+---+---+ | given by anesthesiology | 06/20/20 | | | | | | 18 4:13 | | | | | | PM PDT | | | | + + +---+---+---+ | New Bag | 06/20/20 | | | | | | 18 3:46 | | | | | | PM PDT | | | | + + +---+---+---+ +---+---+ | | | +---+---+ + +-------+ +--------+---+---+ | lidocaine (XYLOCAINE MPF) 2 % | Given | 06/20/20 | 100 mg | | | | (20 mg/mL) injection | | 18 3:56 | | | | | INTRAPROCEDURE PRN, Starting Tue | | PM PDT | | | | | 06/20/18 at 1556, Until 06/20/18 | | | | | | | at 1737 | | | | | | + +-------+ +--------+---+---+ +---+---+ | | | +---+---+ + +-------+ +------+---+---+ | midazolam (PF) (VERSED) | Given | 06/20/20 | 2 mg | | | | injection INTRAPROCEDURE PRN, | | 18 3:51 | | | | | Starting 06/20/18 at 1551, | | PM PDT | | | | | Until Tue06/20/18 at 1737 | | | | | | + +-------+ +------+---+---+ +---+---+ | | | +---+---+ + +-------+ +------+---+---+ | neostigmine (PROSTIGMIN) | Given | 06/20/20 | 4 mg | | | | injection intravenous, | | 18 5:20 | | | | | INTRAPROCEDURE PRN, Starting Tue | | PM PDT | | | | | 06/20/18 at 1720, Until Tue06/20/18 | | | | | | | at 1737 | | | | | | + +-------+ +------+---+---+ +---+---+ | | | +---+---+ + +-------+ +------+---+---+ | ondansetron (ZOFRAN) injection | Given | 06/20/20 | 4 mg | | | | INTRAPROCEDURE PRN, Starting Tue | | 18 5:20 | | | | | 06/20/18 at 1720, Until 06/20/18 | | PM PDT | | | | | at 1737 | | | | | | + +-------+ +------+---+---+ +---+---+ | | | +---+---+ + +-------+ +---------+---+---+ | PHENYLEPHrine 100 mcg/mL IV | Given | 06/20/20 | 100 mcg | | | | syringe INTRAPROCEDURE PRN, | | 18 5:11 | | | | | Starting 06/20/18 at 1659, | | PM PDT | | | | | Until 06/20/18 at 1737 | | | | | | + +-------+ +---------+---+---+ +-------+ +---------+---+---+ | Given | 06/20/20 | 100 mcg | | | | | 18 4:59 | | | | | | PM PDT | | | | +-------+ +---------+---+---+ +---+---+ | | | +---+---+ + +-------+ +--------+---+---+ | propofol (DIPRIVAN) injection | Given | 06/20/20 | 200 mg | | | | INTRAPROCEDURE PRN, Starting Tue | | 18 3:56 | | | | | 06/20/18 at 1556, Until e 06/20/18 | | PM PDT | | | | | at 1737 | | | | | | + +-------+ +--------+---+---+ +---+---+ | | | +---+---+ + +-------+ +-------+---+---+ | rocuronium (ZEMURON) injection | Given | 06/20/20 | 20 mg | | | | INTRAPROCEDURE PRN, Starting Tue | | 18 4:31 | | | | | 06/20/18 at 1556, Until 06/20/18 | | PM PDT | | | | | at 1737 | | | | | | + +-------+ +-------+---+---+ +-------+ +-------+---+---+ | Given | 06/20/20 | 10 mg | | | | | 18 4:03 | | | | | | PM PDT | | | | +-------+ +-------+---+---+ | Given | 06/20/20 | 50 mg | | | | | 18 3:56 | | | | | | PM PDT | | | | +-------+ +-------+---+---+ +---+---+ | | | +---+---+ documented in this encounter"
--- OUTSIDE RECORDS SUMMARY | ~2019-10-09 | XMS | Encounter Summary ---
Demographics + + + | Address | [address] | | | [place] [address] | + + + | Home Phone | | + + + | Preferred Language | Unknown | + + + | Marital Status | | + + + | Pentecostal Affiliation | Unknown | + + + | Race | Unknown | + + + | Ethnic Group | Unknown | + + + Author + + + | Author | [facility] | | | and [place] | + + + | Organization | [facility] | | | and [...] Team Providers + +------+ + | Care Trouble Locater Name | Role | Phone | + [...] Description | +--------+--------+ + + + | 08/08/ | Refill | [facility] | Naida Burnette | Medication Refill | | 2018 | | [facility] RAD[facility] | MD Brad [address] | | | | | [facility]OGY CLIN[facility] [address] | [place], [place] | | | | | [address] | [address] | | | | | [place] [address] | | | | | | [phone] | | | +--------+--------+ + + + [...] 2020 | | | MD Edi Salinas | | | | | | [address] | | | | | | [address] | | | | | | | | +--------+ + + + + documented as of this encounter Visit Diagnoses Not on filedocumented in this encounter"
--- OUTSIDE RECORDS SUMMARY | ~2019-10-09 | XMS | Encounter Summary ---
Demographics + + + | Address | [address] | | | [place] [address] | + + + | Home Phone | | + + + | Preferred Language | Unknown | + + + | Marital Status | | + + + | Pentecostalism Affiliation | Unknown | + + + | Race | Unknown | + + + | Ethnic Group | Unknown | + + + Author + + + | Author | [facility] | | | and [place] | + + + | Organization | [facility] | | [...] Team Providers + +------+ + | Care Relish Blender Name | Role | Phone | + [...] | +--------+ + + + + | 09/06/ | Hospital | [facility] | Naida Burnette | Malignant neoplasm | | 2018 | Encounter | MED CTR RADIATION | MD Brad [address] | of glottis (HCC) | | | | ONCOLOGY CLINIC [address] | [place], [place] | (Primary Dx) | | | | [address] | [address] | | | | | [place] [address] | | | | | | [phone] | | | +--------+ + + + [...] + + + | Blood Pressure | 140/87 | 09/06/2018 9:03 AM | | | | | PST | | + + + + + | Pulse | 95 | 09/06/2018 9:03 AM | | | | | PST | | + + + + + | Temperature | 36.8 C (98.2 F) | 09/06/2018 9:03 AM | | | | | PST | | + + + + + | Respiratory Rate | 16 | 09/06/2018 9:03 AM | | | | | PST | | + + + + + | Oxygen Saturation | 95% | 09/06/2018 9:03 AM | | | | | PST | | + + + + + | Inhaled Oxygen | - | - | | | Concentration | | | | + + + + + | Weight | 98.2 kg (216 lb 7.9 | 09/06/2018 9:03 AM | | | | oz) | PST | | + + + + + | Height | - | - | | + + + + + | Body Mass Index | 27.78 | 07/19/2018 12:34 PM | | | [...] encounter Progress Notes Naida Burnette MD - 09/06/2018 9:05 AM PST Radiation Oncology Weekly On Treatment Note Diagnosis: ICD-10-CM ICD-9-CM 1. 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 Corre ctions were applied as necessary. No Known Allergies Current Outpatient Prescriptions on File Prior to Encounter Medication Sig Dispense Refill ADVAIR DISKUS 500-50 MCG/DOSE diskus inhaler inhale 1 puff by mouth INTO THE LUNGS 2 TI MES DAILY (Patient not taking: Reported on 09/06/2018) 60 each 11 amLODIPine (NORVASC) 10 MG tablet Take by mouth Daily. amoxicillin (AMOXIL) 500 MG capsule Take 1 capsule by mouth 3 times daily for 21 days. 63 capsule 0 neygcitnucFWCAP-thsqkhynt-sbtdkyjt & magnesium hydroxide-simethicone (MAGIC MOUTHWASH) Swish and swallow 5 mLs every 4 hours as needed for Pain. (RECIPE = 1:1:1 mixture of Maalox, diphenhydrAMINE, viscous lidocaine) (Patient not taking: Reported on 08/31/2018) 250 mL 3 gabapentin (NEURONTIN) 300 mg capsule Take by mouth 3 times daily as needed. LORazepam (ATIVAN) 1 mg tablet Take 1-2 tabs prior to radiation, as needed for anxiety 40 tablet 0 oxyCODONE (ROXICODONE) 5 mg tablet Take 5 [...] facility-administered medications on file prior to encounter. 09/06/18 0904 Gastrointestinal Mucositis Oral 1 - Grade 1 Nausea 0 - Grade 0 Vomiting 0 - Grade 0 General Disorders and Administration Site Conditions Fatigue 1 - Grade 1 Performance Status Karnofsky Performance Score 80% Pain assessment: Location: throat Pain Level: PAIN PROG PAIN LEVEL: 3 Pain Quality: Stable Current pain regimen: gabapentin, oxycodone twice daily Wt Readings from Last 3 Encounters: 09/06/18 98.2 kg (216 lb 7.9 oz) 08/31/18 98.2 kg (216 lb 7.9 oz) 08/24/18 97.3 kg (214 lb 8.1 oz) Vitals: 09/06/18 0903 BP: 140/87 Pulse: 95 Resp: 16 Temp: 36.8 C (98.2 F) TempSrc: Temporal SpO2: 95% Weight: 98.2 kg (216 lb 7.9 oz) Physical Exam Constitutional: He appears well-developed and well-nourished. Neurological: He is alert. Skin: No rash noted. There is erythema (Diffuse erythema and mild edema over neck. Area of prior abscess is swollen and firm, nontender. ). Psychiatric: He has a normal mood and affect. Physician Assessment: - Continued fatigue. - Swallowing well, minimal pain. Weight stable. - Tuesday noted increased swelling of the prior abscess site on his anterior neck. No pain o r fevers. Toxicities reviewed in nursing note. Disposition: Continue radiation treatment as planned. 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 Res tarted antibiotics, with switched to amoxicillin 500 mg 3 times a day for at least 3 weeks. Diarrhea associated. Encouraged him to try imodium to counter diarrhea. - OT consult for neck lymph edema and fibrosis. Naida Burnette MD Radiation Oncologist documented in this encounter Plan of Treatment +--------+ + + + + | Date | Type | Specialty | Care Team | Description | +--------+ + + + + | 01/01/ | Appointment | Radiation Oncology | Naida Burnette | | | 2019 | | | MD Edi Salinas | | | | | | [place], [place] | | | | | | [address] | | | | | | | | +--------+ + + + + documented as of this encounter Visit Diagnoses + + | Diagnosis | + + | 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
--- OUTSIDE RECORDS SUMMARY | ~2019-10-09 | XMS | Encounter Summary ---
Demographics + + + | Address | [address] | | | [place] [address] | + + + | Home Phone | | + + + | Preferred Language | Unknown | + + + | Marital Status | | + + + | Synagogue Affiliation | Unknown | + + + | Race | Unknown | + + + | Ethnic Group | Unknown | + + + Author + + + | Author | [facility] | | | and [place] | + + + | Organization | [facility] | | | [...] Team Providers + +------+ + | Care Hollow Tile Partition Erector Name | Role | Phone | + +------+ + | Daniel Cannon MD | PCP | | + +------+ + Encounter Details +--------+ + + + + | Date | Type | Department | Care Team | Description | +--------+ + + + + | 07/13/ | Imaging | [facility] | [place], | | | 2017 | Exam | [facility] | MD Shashi [address] | | | | | EXTERNAL IMAGING | Brianna MAY | | | | | Jenny [address] | [place] [address] | | | | | [place] | | | | | | [address] | | | | | | [phone] | | | +--------+ + + + [...] | +--------+ + + + + | 03/18/ | Appointment | Radiation Oncology | Naida Burnette | | | 2019 | | | MD Edi Salinas [address] | | | | | | [place] | | | | | | [address] | | | | | | | | +--------+ + + + + documented as of this encounter Procedures + +--------+ + + + | Procedure Name | Priori | Date/Time | Associated Diagnosis | Comments | | | ty | | | | + +--------+ + + + | CT SOFT TISSUE NECK | Routin | 05/29/2018 | | Results for this | | W CONTRAST | e | 12:00 AM | | procedure are in the | | | | PDT | | results section. | + +--------+ + + + documented in this encounter Results CT Soft Tissue Neck w Contrast (05/29/2018 12:00 AM PDT) + + | Specimen | [...]
--- OUTSIDE RECORDS SUMMARY | ~2019-10-09 | XMS | Encounter Summary ---
Demographics + + + | Address | [address] | | | [place] [address] | + + + | Home Phone | | + + + | Preferred Language | Unknown | + + + | Marital Status | | + + + | Scientologist Affiliation | Unknown | + + + | Race | Unknown | + + + | Ethnic Group | Unknown | + + + Author + + + | Author | [facility] | | | and [place] | + + + | Organization | [facility] | | [...] Team Providers + +------+ + | Care Small Piece Cutter Name | Role | Phone | + +------+ + PCP | Unavailable | + +------+ + Encounter Details +--------+ + + + + | Date | Type | Department | Care Team | Description | +--------+ + + + + | 11/03/ | Hospital | [facility] | | | | 1995 | Encounter | MED CTR EMERGENCY | | | | | | CENTER [address] | | | | | | [place] | | | | | | [address] | | | | | | [phone] | | | +--------+ + + + [...] [place] | | | | | | [address] | | | | | | | | +--------+ + + + + documented as of this encounter Visit Diagnoses Not on filedocumented in this encounter"
--- OUTSIDE RECORDS SUMMARY | ~2019-10-09 | XMS | Encounter Summary ---
Demographics + + + | Address | [address] | | | [place] [address] | + + + | Home Phone | | + + + | Preferred Language | Unknown | + + + | Marital Status | | + + + | Yazidi Affiliation | Unknown | + + + | Race | Unknown | + + + | Ethnic Group | Unknown | + + + Author + + + | Author | [facility] | | | and [place] | + + + | Organization | [facility] | | [...] Team Providers + +------+ + | Care Bike Designer Name | Role | Phone | + +------+ + | Daniel Cannon MD | PCP | | + +------+ + Reason for Referral Evaluate & Treat (Routine) +--------+ + + + + + | Status | Reason | Specialty | Diagnoses / | Referred By | Referred To | | | | | Procedures | Contact | Contact | +--------+ + + + + + | Closed | Specialty | Internal | Diagnoses | Vasile | Zoila | | | Services | Medicine | Actinomyces | Naida Salinas, | Tom Brar | | | Required | | infection | [address] | MD Ruslan | | | | | | [address] | [address] | | | | | | [place], | [address] | | | | | | [place] [address] | [place], [place] | | | | | | Phone: | [address] Phone: | | | | | | [phone] | [phone] | | | | | | Fax: | Fax: | | | | | | [phone] | [phone] | +--------+ + + + + + Reason for Visit + + + | Reason | Comments | + + + | Under Treatment | | + + + Encounter Details +--------+ + + + + | Date | Type | Department | Care Team | Description | +--------+ + + + + | 09/14/ | [facility] | [facility] | Naida Burnette | Malignant neoplasm | | 2018 | Encounter | MED CTR RADIATION | MD Brad [address] | of glottis (HCC) | | | | ONCOLOGY CLINIC [address] | [place], [place] | (Primary Dx); | | | | [address] | [address] | Actinomyces neck | | | | [place] [address] | | abcess; Actinomyces | | | | [phone] | | neck abscess | +--------+ + + + + Social [...] + + + | Blood Pressure | 134/58 | 09/14/2018 9:49 AM | | | | | PST | | + + + + + | Pulse | 90 | 09/14/2018 9:49 AM | | | | | PST | | + + + + + | Temperature | 35.9 C (96.6 F) | 09/14/2018 9:49 AM | | | | | PST | | + + + + + | Respiratory Rate | 16 | 09/14/2018 9:49 AM | | | | | PST | | + + + + + | Oxygen Saturation | 95% | 09/14/2018 9:49 AM | | | | | PST | | + + + + + | Inhaled Oxygen | - | - | | | Concentration | | | | + + + + + | Weight | 96.6 kg (212 lb 15.4 | 09/14/2018 9:49 AM | | | | oz) | PST | | + + + + + | Height | - | - | | + + + + + | Body Mass Index | 27.33 | 07/19/2018 12:34 PM | | | [...] encounter Progress Notes Naida Burnette MD - 09/14/2018 9:52 AM PST Radiation Oncology Weekly On Treatment Note Diagnosis: ICD-10-CM ICD-9-CM 1. 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 63 capsule 0 augbikqwptPQQHI-qdjszsdie-atveruua & magnesium hydroxide-simethicone (MAGIC MOUTHWASH) Swish and [...] facility-administered medications on file prior to encounter. 09/14/18 0952 Gastrointestinal Mucositis Oral 1 - Grade 1 Nausea 0 - Grade 0 Vomiting 0 - Grade 0 General Disorders and Administration Site Conditions Fatigue 1 - Grade 1 Performance Status Karnofsky Performance Score 80% Pain assessment: Location:throat Pain Level: PAIN PROG PAIN LEVEL: 3 Wt Readings from Last 3 Encounters: 09/14/18 96.6 kg (212 lb 15.4 oz) 09/06/18 98.2 kg (216 lb 7.9 oz) 08/31/18 98.2 kg (216 lb 7.9 oz) Vitals: 09/14/18 0949 BP: 134/58 Pulse: 90 Resp: 16 Temp: 35.9 C (96.6 F) TempSrc: Temporal SpO2: 95% Weight: 96.6 kg (212 lb 15.4 oz) Physical Exam Constitutional: He appears well-developed and well-nourished. Neck: At the anterior right neck there is a firm area corresponding to prior abscess. Less prono unced in this week, after starting amoxicillin. Skin is not indurated, nontender. Neurological: He is alert. Skin: No rash noted. There is erythema (Neck demonstrates diffuse erythema, no desquamation , skin well moisturize.). Psychiatric: He has a normal mood and affect. Physician Assessment: Continues to tolerate radiation quite well. Notes fatigue and mild throat pain. He is abl e to eat normally. Weight has decreased 4 pounds in the past week. He does not feel that t hroat pain is limiting his ability to eat. 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 Surgical drainage of the abscess was performed in May at [facility]. He was prescribed a prolonged course of penicillin however did not take this regularly due to the side effect of diarrhea. Early in radiation treatment we took a 1-2 week break from antibiotics, the area of prior abscess increased in size during this time. He was then star charo on amoxicillin, in hopes of better tolerance. He has been taking amoxicillin as prescri bed, manages diarrhea with Imodium. Encouraged him to also take probiotics. Tool Grinding Machine Operator p rovided banana flakes as well. He feels that the area of prior abscess has decreased in siz e since restarting antibiotics. I recommend follow up with infectious disease provider in [facility] to determine duration of needed for antibiotic coverage. Toxicities reviewed in nursing note. Disposition: Continue radiation treatment as planned. Scheduled to complete therapy next week. Continue amoxicillin Consultation with infectious disease doctor, referral provided Naida Burnette MD Radiation Oncologist documented in [...] | | | | | [address] [place], [place] | | | | | | [address] | | | | | | | | +--------+ + + + + + + +--------+ + + | Name | Type | Priori | Associated Diagnoses | Order Schedule | | | | ty | | | + + +--------+ + + | Infectious Disease, | Outpatient | Routin | Actinomyces neck | Ordered: 09/14/2018 | | External - AMB | Referral | e | abscess | | | Referral | | | | | + + +--------+ + + documented as of this encounter Visit Diagnoses + + | Diagnosis | + + | Malignant neoplasm of glottis (HCC) - Primary Malignant neoplasm of glottis | + + | Actinomyces neck abcess; 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
--- OUTSIDE RECORDS SUMMARY | ~2019-10-09 | XMS | Encounter Summary ---
Demographics + + + | Address | [address] | | | [place] [address] | + + + | Home Phone | | + + + | Preferred Language | Unknown | + + + | Marital Status | | + + + | Buddhism Affiliation | Unknown | + + + [...] Team Providers + +------+ + | Care Human Resources Receptionist Name | Role | Phone | + +------+ + PCP | Unavailable | + +------+ + Encounter Details +--------+ + + + + | Date | Type | Department | Care Team | Description | +--------+ + + + + | 11/29/ | Hospital | [facility] | | | | 1995 | Encounter | MED CTR EMERGENCY | | | | | | CENTER [address] | | | | | | [place] | | | | | | [address] | | | | | | [phone] | | | +--------+ + + + [...] [place] | | | | | | [address] | | | | | | | | +--------+ + + + + documented as of this encounter Visit Diagnoses Not on filedocumented in this encounter"
--- OUTSIDE RECORDS SUMMARY | ~2019-10-09 | XMS | Encounter Summary ---
Demographics + + + | Address | [address] | | | [place] [address] | + + + | Home Phone | | + + + | Preferred Language | Unknown | + + + | Marital Status | | + + + | Gnosticism Affiliation | Unknown | + + + | Race | Unknown | + + + | Ethnic Group | Unknown | + + + Author + + + | Author | [facility] | | | and [place] | + + + | Organization | [facility] | | | and [...] Team Providers + +------+ + | Care Photograph Tinter Name | Role | Phone | + [...] Description | +--------+--------+ + + + | 08/19/ | Refill | [facility] [place] | Off[place], | Medication Refill | | 2012 | | PULMONARY [address] | Latisha Dominguez MD | | | | | [place], | | | | | | [place] [address] | | | | | | [phone] | | | +--------+--------+ + + + [...] | | | | | | [place] | | | | | | [address] | | | | | | | | +--------+ + + + + documented as of this encounter Visit Diagnoses Not on filedocumented in this encounter"
--- OUTSIDE RECORDS SUMMARY | ~2019-10-09 | XMS | Encounter Summary ---
Demographics + + + | Address | [address] | | | [place] [address] | + + + | Home Phone | | + + + | Preferred Language | Unknown | + + + | Marital Status | | + + + | Temple Affiliation | Unknown | + + + | Race | Unknown | + + + | Ethnic Group | Unknown | + + + Author + + + | Author | [facility] | | | and [place] | + + + | Organization | [facility] | | | [...] Team Providers + +------+ + | Care Dental Technician Instructor Name | Role | Phone | + [...] + + + + | 07/13/ | Telephone | [facility] | Naida Burnette | Other | | 2018 | | MED CTR MEDICAL | MD Brad [address] | | | | | ONCOLOGY CLINIC [address] | [place], [place] | | | | | [address] | [address] | | | | | [place] [address] | | | | | | [phone] | | | +--------+ + + + [...]
--- OUTSIDE RECORDS SUMMARY | ~2019-10-09 | XMS | Encounter Summary ---
Demographics + + + | Address | [address] | | | [place] [address] | + + + | Home Phone | | + + + | Preferred Language | Unknown | + + + | Marital Status | | + + + | Episcopal Affiliation | NRP | + + + [...] | | | | [place] [address] | | + + + + + Care Team Providers + +------+ + | Care Machine Whitener Name | Role | Phone | + +------+ + | Daniel Cannon MD | PCP | | + +------+ + Reason for Referral Consultation (Routine) +--------+--------+ + + + + | Status | Reason | Specialty | Diagnoses / | Referred By | Referred To | | | | | Procedures | Contact | Contact | +--------+--------+ + + + + | Closed | | Non [facility] | Diagnoses | Blanka, | Vasile, | | | | Department | Malignant | Pasquale Little, | Naida Salinas MD | | | | | neoplasm of | [address] | [address] | | | | | glottis | [address] | [address] | | | | | ([facility]) | [address] | [place], | | | | | Pharyngeal | [place], [place] | [place] [address] | | | | | dysphagia | [address] | Phone: | | | | | Dysphonia | Phone: | [phone] | | | | | Tobacco | [phone] | Fax: | | | | | abuse | Fax: | [phone] | | | | | Procedures | [phone] | | | | | | CONSULT TO | | | | | | | NON - [facility] | | | | | | | PROVIDER | | | +--------+--------+ + + + + Encounter Details +--------+ + + + + | Date | Type | Department | Care Team | Description | +--------+ + + + + | 06/16/ | Documentati | Otolaryngology | Pasquale Moscoso | | | 2018 | on | Laryngology Services | MD Sidney [address] | | | | | at [facility] [address] | | | | | [place], | [place], [place] | | | | | [place] [address] | [address] | | | | | [phone] | [phone] | | | | | | | [...] 2020 | Visit | | MD Sidney [address] | | | | | | [address] | | | | | | [facility] [place] | | | | | | [address] | | | | | | [phone] | | | | | | | [...] disorder | + + documented in this encounter"
--- OUTSIDE RECORDS SUMMARY | ~2019-10-09 | XMS | Encounter Summary ---
Demographics + + + | Address | [address] | | | [place] [address] | + + + | Home Phone | | + + + | Preferred Language | Unknown | + + + | Marital Status | | + + + | Adventist Affiliation | NRP | + + + | Race | White | + + + | Ethnic Group | Not or | + + + Author + + + | Author | [facility] | + + + | Organization | [facility] | + + + | Address | Unknown | + + + | Phone | Unavailable | + + + Support + + + + + | Name | Relationship | Address | Phone | + + + + + | Cecile Chowdhury | ECON | [address] | | | | | [place] [address] | | + + + + + Care Team Providers + +------+ + | Care Service Writer Advisor Name | Role | Phone | + +------+ + | Daniel Cannon MD | PCP | | + +------+ + Encounter Details +--------+ + + + + | Date | Type | Department | Care Team | Description | +--------+ + + + + | 06/20/ | Procedure | [address] IN[address] | | | | 2018 | Pass | [address] | | | | | | [facility] | | | | | | Ambulatory Surgery | | | | | | Admitting Desk | | | | | | Located on the 4th | | | | | | floor, Room [facility] | | | | | | [place], [place] | | | | | | [address] | | | +--------+ + + + [...] 2020 | Visit | | MD Sidney [address] | | | | | | [address] | | | | | | [place], [place] | | | | | | [address] | | | | | | [phone] | | | | | | | | +--------+---------+ + + + documented as of this encounter Visit Diagnoses Not on filedocumented in this encounter"
--- OUTSIDE RECORDS SUMMARY | ~2019-10-09 | XMS | Encounter Summary ---
Demographics + + + | Address | [address] | | | [place] [address] | + + + | Home Phone | | + + + | Preferred Language | Unknown | + + + | Marital Status | | + + + | Baptist Affiliation | Unknown | + + + | Race | Unknown | + + + | Ethnic Group | Unknown | + + + Author + + + | Author | [facility] | | | and [place] | + + + | Organization | [facility] | | | [...] Team Providers + +------+ + | Care Girls Tennis Coach Name | Role | Phone | + [...] | | | | | [place] [address] | | +--------+ + + + + [...] [place] | | | | | | [id number] | | | | | | | | +--------+ + + + + documented as of this encounter Visit Diagnoses Not on filedocumented in this encounter"
--- OUTSIDE RECORDS SUMMARY | ~2019-10-09 | XMS | Encounter Summary ---
Demographics + + + | Address | [address] | | | [place] [address] | + + + | Home Phone | | + + + | Preferred Language | Unknown | + + + | Marital Status | | + + + | Lutheran Affiliation | NRP | + + + | Race | White | + + + | Ethnic Group | Not or | + + + Author + + + | Author | [facility] | + + + | Organization | [facility] | + + + | Address | Unknown | + + + | Phone | Unavailable | + + + Support + + + + + | Name | Relationship | Address | Phone | + + + + + | Cecile Chowdhury | ECON | [address] | | | | | [place] [address] | | + + + + + Care Team Providers + +------+ + | Care Store Consultant Name | Role | Phone | + +------+ + | Daniel Cannon MD | PCP | | + +------+ + Encounter Details +--------+ + + + + | Date | Type | Department | Care Team | Description | +--------+ + + + + | 05/26/ | Procedure | Diagnostic Imaging | | | | 2018 | Pass | Services at [facility] | | | | | | [address] | | | | | | [address] [place] Mailcode: | | | | | | [address] [facility] | | | | | | [place], [place] | | | | | | [address] | | | | | | [phone] | | | +--------+ + + + [...] 2020 | Visit | | MD Sidney [address] [facility] | | | | | | [address] | | | | | | [place], [place] | | | | | | [address] | | | | | | [phone] | | | | | | | | +--------+---------+ + + + documented as of this encounter Visit Diagnoses Not on filedocumented in this encounter"
--- OUTSIDE RECORDS SUMMARY | ~2019-10-09 | XMS | Encounter Summary ---
Demographics + + + | Address | [address] | | | [place] [address] | + + + | Home Phone [...] Team Providers + +------+ + | Care Rugby League Footballer Name | Role | Phone | + +------+ + | Daniel Cannon MD | PCP | | + +------+ + Reason for Visit + + + | Reason | Comments | + + + | Follow-up | | + + + Encounter Details +--------+---------+ + + + | Date | Type | Department | Care Team | Description | +--------+---------+ + + + | 09/18/ | Office | [facility] | [place], | Asthma; | | 2011 | Visit | PULMONARY [address] | Latisha Dominguez MD | Tobacco abuse; | | | | [place], | | Allergic rhinitis; | | | | [place] [address] | | Needs flu shot | | | | [phone] | | | +--------+---------+ + + + [...] + | Tobacco Cessation: Ready to Quit: Yes | + + + + +---------+ + [...] + + + | Blood Pressure | 140/90 | 09/18/2012 3:15 PM | | | | | PST | | + + + + + | Pulse | 90 | 09/18/2012 3:15 PM | | | | | PST | | + + + + + | Temperature | - | - | | + + + + + | Respiratory Rate | - | - | | + + + + + | Oxygen Saturation | 100% | 09/18/2012 3:15 PM | | | | | PST | | + + + + + | Inhaled Oxygen | - | - | | | Concentration | | | | + + + + + | Weight | 96.1 kg (211 lb 14.4 | 09/18/2012 3:15 PM | | | | oz) | PST | | + + + + + | Height | 188 cm (6' 2") | 09/18/2012 3:15 PM | | | | | PST | | + + + + + | Body Mass Index | 27.21 | 09/18/2012 3:15 PM | | | | | PST | | + + + + + documented in this encounter Patient Instructions Patient Instructions Joseline De Los Santos - 09/18/2012 3:17 PM PSTAgustín 2012 Ronni Chowdhury [address] [place] [address] [place] [address] Dear Ronni: Thank you for enrolling in [employer]. Please follow the instructions below to view your [employer] online medical record. [employer] allows you to send secure messages to your doctor, view you r test results, renew your prescriptions, schedule appointments, and more. How Do I Sign Up? 1. In your Internet browser, go to [email or web address] 2. Click on the Sign Up Now link in the Sign In box. This will take you to the New Membe r Sign Up page. 3. Enter your [employer] access code exactly as it appears below. You will not need to use this code after you sign up. If you do not sign up before the expiration date, you must requ est a new code through your [facility]. [facility] Access Code: [email or web address] Expires: 11/17/2012 15:17 4. Fill in the last four digits of your Social Security Number (xxxx) and Date of (mm/dd/yyyy) when asked and click Submit. You will now be asked to create a [employer] ID. 5. Create a [employer] ID. This will be your [employer] login ID. Your login ID cannot be foss ged, so think of one that is secure and easy to remember. 6. Create a [employer] password. You can change your password at any time. 7. Enter your Password Reset Question and Answer. This can be used at a later time if yo u forget your password. 8. Enter your e-mail address. You will receive e-mail notification when new information is available in [employer]. 9. Click Sign Up. You may now view your medical record. Additional Information If you have questions, you can email [email or web address] or call [phone] to talk to our [facility] care team. Please remember, [employer] should NOT be used fo r urgent needs. For all medical emergencies, call 911. Sincerely, Latisha Anaya MD Try taking Zyrtec or cetirizine OTC 10mg a day as needed for the runny nose and congestion. documented in this encounter Progress Notes Latisha Anaya MD - 09/18/2012 3:42 PM PSTFormatting of this note might be differe nt from the original. Pulmonary Follow Up HPI Ronni Chowdhury is a 41 y.o. male patient of Daniel Cannon here today for follow up of a sthma. At their last visit, we switched his Flovent to Advair. Since their last visit he feels lik e he has been doing well. He reports that he no longer needs to use his albuterol. He does n ot believe that he has had to use his albuterol since 2-3 days after he switched over to Adv air. They have not had any acute illnesses. They are currently on a regimen of Advair twice a day, and albuterol as needed. They do feel like this medication regimen is working for kari turk. They return today for routine follow up. Currently they are able to walk at least several miles at their own pace on level ground. Kari suarez are not exercising regularly, though he is active at work. He does cough occasionally, and does produce a little bit of mucous. The mucous is yellow b rown in color. They have not had hemoptysis. He does not have symptoms of heartburn or reflux. They have had symptoms of nasal congestio n, runny nose or post nasal drip. This occurs off and on. Past Medical History He has a past medical history of Asthma; Allergy to cats; Jaw fracture; and Tobacco abuse. Past Surgical History He has past surgical history that includes Nasal septum surgery. Social History: He reports that he has been smoking Cigarettes. He has a 23 pack-year smoking history. He has never used smokeless tobacco. He reports that he drinks about 21 ounces of alcohol per w akutan. He reports that he does not use illicit drugs. Allergies: Allergies Allergen Reactions Clindamycin Medications: Outpatient Encounter Prescriptions as of 09/18/2012 Medication Sig Dispense Refill fluticasone-salmeterol (ADVAIR DISKUS) 500-50 mcg/puff diskus inhaler 1 puff inhaled tw ice daily albuterol (PROAIR HFA) 90 mcg/puff inhaler Inhale one to two puffs every four to six hr s as needed albuterol 2.5 mg/3 mL nebulizer solution with nebulizer once daily Review of Systems Constitutional: Denies fever, chills, sweats, and change in weight. Sleep: Denies difficulty sleeping, excessive snoring, and daytime sleepiness. Eyes: Denies vision change and eye irritation. ENT: Denies earache, decreased hearing, nosebleeds, sore throat, and hoarseness. Resp: See HPI. CV: Denies chest pain, palpitations, syncope, and peripheral edema. GI: Denies nausea, vomiting, and abdominal pain. : Denies difficulty emptying bladder. Occasional nocturia. Musculoskeletal: Denies joint pain/stiffness, joint swelling, and muscle cramps. Objective BP 140/90 | Pulse 90 | Ht 1.88 m (6' 2") | Wt 96.117 kg (211 lb 14.4 oz) | BMI 27.21 kg/m2 | SpO2 100% General Appearance: Alert, cooperative, no distress, appears stated age Head: Normocephalic, without obvious abnormality, atraumatic Eyes: PERRL, conjunctiva clear, no scleral icterus, EOM's intact Ears: Normal TM's, external auditory canals, and acuity Nose: Nares normal, septum midline, mucosa normal, no drainage Mouth: No oral lesions or exudate Neck: Supple, symmetrical, no adenopathy Lungs: No accessory muscle use, breath sounds are clear to auscultation bilaterally, no w heezes, crackles or rhonchi Chest Wall: No deformity Heart: Regular rate and rhythm, no murmur, rub or gallop Abdomen: Soft, non-tender, non-distended Extremities: No cyanosis, clubbing, or edema Pulses: Radial pulses 2+ and symmetric Skin: Warm and dry Lymph nodes: Cervical and supraclavicular nodes normal Neurologic: Gait normal Data: Has not had his influenza vaccine. Has had updated whooping cough vaccine. Assessment /Plan Mr. Chowdhury was seen today for follow-up of asthma. Asthma His symptoms are markedly improved with the ticket dispenser changer to Advair from Flovent. Given that he has not needed to use his albuterol at all, I suggested that we decreased the dose of hi s Advair to the 250 mcg dose. I did ask that he call if he notices an increase in the frequ ency of his albuterol use. - fluticasone-salmeterol (FLUTICASONE-SALMETEROL) 250-50 mcg/puff diskus inhaler; Inhale 1 puff into the lungs 2 times daily. Tobacco abuse We discussed the importance of quitting smoking in clinic today. His main issue remains th at he does not have alternative means of coping with his stress. She is aware that he shoul d quit smoking. 3 minutes was spent on counseling regarding smoking cessation in clinic tomilad rocael. Allergic rhinitis He does note occasional, intermittent runny nose and nasal congestion. Because his symptom s are relatively minimal, I suggested that he use an as needed Zyrtec or cetirizine 10 mg da chary as needed. Needs flu shot - [place] FLU VACCINE =>3YO PRESERVATIVE FREE IM Return to clinic in 4 months. CC: Daniel Cannon documented in t his encounter Plan of Treatment +--------+ + + + + | Date | Type | Specialty | Care Team | Description | +--------+ + + + + | 01/01/ | Appointment | Radiation Oncology | Naida Burnette | | | 2019 | | | MD Edi [address] | | | | | | [place], [place] | | | | | | [address] | | | | | | | | +--------+ + + + + documented as of this encounter Visit Diagnoses + + | Diagnosis | + + | Asthma Unspecified asthma | + + | Tobacco abuse Tobacco use disorder | + + | Allergic rhinitis Allergic rhinitis, cause unspecified | + + | Needs flu shot Need for prophylactic vaccination and inoculation against influenza | + + documented in this encounter
--- OUTSIDE RECORDS SUMMARY | ~2019-10-09 | XMS | Encounter Summary ---
Demographics + + + | Address | [address] | | | [place] [address] | + + + | Home Phone | | + + + | Preferred Language | Unknown | + + + | Marital Status | | + + + | Zoroastrianism Affiliation | NRP | + + + | Race | White | + + + | Ethnic Group | Not or | + + + Author + + + | Author | [facility] | + + + | Organization | [facility] | + + + | Address | Unknown | + + + | Phone | Unavailable | + + + Support + + + + + | Name | Relationship | Address | Phone | + + + + + | Cecile Chowdhury | ECON | [address] | | | | | [place] [address] | | + + + + + Care Team Providers + +------+ + | Care Steam Fitter Supervisor Maintenance Name | Role | Phone | + [...] + + + | Closed | | Radiation | Diagnoses | Steve, | Michael, | | | | Oncology | Malignant | Yolande | MD Dada | | | | | neoplasm of | E, PA-C | [address] | | | | | glottis | [address] | [address] | | | | | (HCC) | [address] | [address] [place], | | | | | Procedures | [place], [place] | [place] | | | | | CONSULT TO | [address] | [address] | | | | | RADIATION | Phone: | Phone: | | | | | ONCOLOGY | [phone] | [phone] | | | | | | Fax: | Fax: | | | | | | [phone] | [phone] | +--------+--------+ + + + + Encounter Details +--------+ + + + + | Date | Type | Department | Care Team | Description | +--------+ + + + + | 07/11/ | 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 | Steve, | T3N0 SCCa, right | | 2018 | | Laryngology Services | Yolande Casey PA-C | glottis (Primary Dx) | | | | at [facility] [address] | [address] | | | | | [address] [place], | [place], [place] | | | | | [place] [address] | [address] | | | | | [phone] | [phone] | | | | | | | [...] 2020 | Visit | | MD Sidney [address] | | | | | | [address] | | | | | | [place], [place] | | | | | | [address] | | | | | | [phone] | | | | | | | | +--------+---------+ + + + documented as of this encounter Visit Diagnoses + + | Diagnosis | + + | T3N0 SCCa, 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
--- OUTSIDE RECORDS SUMMARY | ~2019-10-09 | XMS | Encounter Summary ---
Demographics + + + | Address | [address] | | | [place] [address] | + + + | Home Phone | | + + + | Preferred Language | Unknown | + + + | Marital Status | | + + + | Confucianist Affiliation | Unknown | + + + | Race | Unknown | + + + | Ethnic Group | Unknown | + + + Author + + + | Author | [facility] | | | and [place] | + + + | Organization | [facility] | | [...] Team Providers + +------+ + | Care Subject Scientific Research Name | Role | Phone | + +------+ + | Daniel Cannon MD | PCP | | + +------+ + Reason for Referral Diagnostic/Screening (Routine) +--------+--------+ + + + + | Status | Reason | Specialty | Diagnoses / | Referred By | Referred To | | | | | Procedures | Contact | Contact | +--------+--------+ + + + + | Closed | | Radiology | Diagnoses | [place], | [address] | | | | | Larynx | Naida Salinas, | [address] | | | | | cancer (HCC) | [address] | [place], | | | | | Procedures | [address] | [place] [address] | | | | | [place] | [place], | Phone: | | | | | Treatment | [place] [address] | [phone] | | | | | Plan Complex | Phone: | Fax: | | | | | | [phone] | [phone] | | | | | | Fax: | | | | | | | [phone] | | +--------+--------+ + + + + Reason for Visit Diagnostic/Screening (Routine) +--------+--------+ + + + + | Status | Reason | Specialty | Diagnoses / | Referred By | Referred To | | | | | Procedures | Contact | Contact | +--------+--------+ + + + + | Closed | | Radiology | Diagnoses | [place], | [address] | | | | | Larynx | Naida Salinas, | [address] | | | | | cancer (HCC) | MD [address] | [place], | | | | | Procedures | [address] | [place] [address] | | | | | CT | [place], | Phone: | | | | | Treatment | [place] [address] | [phone] | | | | | Plan Complex | Phone: | Fax: | | | | | | [phone] | [phone] | | | | | | Fax: | | | | | | | [phone] | | +--------+--------+ + + + + Encounter Details +--------+ + + + + | Date | Type | Department | Care Team | Description | +--------+ + + + + | 07/21/ | Hospital | [facility] | Naida Burnette | Larynx cancer (HCC) | | 2018 | Encounter | [facility] [address] | MD Brad [address] | | | | | [place], | [place], [place] | | | | | [place] [address] | [id number] | | | | | [phone] | | | +--------+ + + + [...] | | | | | [address] | | | | | | [address] | | | | | | | | +--------+ + + + + documented as of this encounter Procedures + +--------+ + + + | Procedure Name | Priori | Date/Time | Associated Diagnosis | Comments | | | ty | | | | + +--------+ + + + | CT TREATMENT PLAN | Routin | 07/21/2018 | Larynx cancer | Results for this | | COMPLEX | e | 10:53 AM | (HCC) | procedure are in the | | | | PDT | | results section. | + +--------+ + + + documented in this encounter Results CT Treatment Plan Complex (07/21/2018 10:53 AM PDT) + + | Specimen | + + | | + + + + + | Narrative | Performed At | + + + | This exam has been auto-finalized and the interpretation may exist | [facility] | | elsewhere in the chart. | | + + + + +---------+ + + | Performing | Address | City/State/Zipcode | Phone Number | | Organization | | | | + +---------+ + + | [facility] | | | | + +---------+ + + documented in this encounter Visit Diagnoses + + | Diagnosis | + + | Larynx cancer (HCC) Malignant neoplasm of larynx, unspecified site | + + documented in this encounter Administered Medications + +--------+ +--------+------+------+ | Medication Order | MAR | Action | Dose | Rate | Site | | | Action | Date | | | | + +--------+ +--------+------+------+ | iohexol (OMNIPAQUE 350) 350 | Given | 07/21/20 | 75 mLs | | | | mg/mL injection 75 mL 75 mL, | | 18 10:53 | | | | | Intravenous, ONCE PRN, Other, | | AM PDT | | | | | Starting Tue07/21/18 at 1053, For | | | | | | | 1 dose, Cat Scanner | | | | | | + +--------+ +--------+------+------+ +---+---+ | | | +---+---+ documented in this encounter"
--- OUTSIDE RECORDS SUMMARY | ~2019-10-09 | XMS | Encounter Summary ---
Demographics + + + | Address | [address] | | | [place] [address] | + + + | Home Phone | | + + + | Preferred Language | Unknown | + + + | Marital Status | | + + + | Pentecostalism Affiliation | Unknown | + + + | Race | Unknown | + + + | Ethnic Group | Unknown | + + + Author + + + | Author | [facility] | | | and [place] | + + + | Organization | [facility] | | | [...] Team Providers + +------+ + | Care Surgeon Partner Name | Role | Phone | + [...] Description | +--------+--------+ + + + | 02/15/ | Refill | [facility] [place] | [place], | Medication Refill | | 2012 | | PULMONARY [address] | Latisha Dominguez MD | | | | | [place], | | | | | | [place] [address] | | | | | | [phone] | | | +--------+--------+ + + + [...] [place] | | | | | | [address] | | | | | | | | +--------+ + + + + documented as of this encounter Visit Diagnoses Not on filedocumented in this encounter"
--- OUTSIDE RECORDS SUMMARY | ~2019-10-09 | XMS | Encounter Summary ---
Demographics + + + | Address | [address] | | | [place] [address] | + + + | Home Phone | | + + + | Preferred Language | Unknown | + + + | Marital Status | | + + + | Christian Affiliation | NRP | + + + | Race | White | + + + | Ethnic Group | Not or | + + + Author + + + | Author | [facility] | + + + | Organization | [facility] | + + + | Address | Unknown | + + + | Phone | Unavailable | + + + Support + + + + + | Name | Relationship | Address | Phone | + + + + + | Cecile Chowdhury | ECON | [address] | | | | | [place] [address] | | + + + + + Care Team Providers + +------+ + | Care Manhole Stripper Name | Role | Phone | + +------+ + | Daniel Cannon MD | PCP | | + +------+ + Reason for Visit + + + | Reason | Comments | + + + | New patient | | | consultation | | + + + Speech Therapy (Routine) +--------+--------+ + + + + | Status | Reason | Specialty | Diagnoses / | Referred By | Referred To | | | | | Procedures | Contact | Contact | +--------+--------+ + + + + | Closed | | Speech | | Danyel, | Ent Speech | | | | Therapy | | Javier Gonzalez MD | [facility] | | | | | | [address] | | | | | | [address] | Mailcode: | | | | | | [place], [place] | [facility] [place] | | | | | | [address] | for Health | | | | | | Phone: | and Healing, | | | | | | [phone] | Building [address], | | | | | | Fax: | 15th Floor | | | | | | [phone] | [place], [place] | | | | | | | [address] | | | | | | | Phone: | | | | | | | [phone] | | | | | | | Fax: | | | | | | | [phone] | +--------+--------+ + + + + Encounter Details +--------+---------+ + + + | Date | Type | Department | Care Team | Description | +--------+---------+ + + + | 01/04/ | Office | Otol[facility]ology [facility] | Ruth Marinelli, | Dysphonia; Malignant | | 2018 | Visit | [facility] | INVESTMENT MANAGER [address] | neoplasm of glottis | | | | Swallowing at [facility] | [address] | ([facility]) | | | | [address] | [place] [address] | | | | | Mailcode: LUZ ELENA[address]Carmela | [phone] | | | | | [facility] | | | | | | and Healing, | | | | | | Building | | | | | | Floor [place], [place] | | | | | | [address] | | | | | | [phone] | | | +--------+---------+ + + + Social History + +-------+ +--------+ + | Tobacco Use | Types | Packs/Day | Years | Date | | | | | Used | | + +-------+ +--------+ + | Former Smoker | | 1.5 | 25 | Started: 11/30/2017 | + +-------+ +--------+ [...] Weight | 104.3 kg (230 lb) | 01/04/2018 2:48 PM | | | | | PDT | | + + + + + | Height | 182.9 cm (6') | 01/04/2018 2:48 PM | | | | | PDT | | + + + + + | Body Mass Index | 31.19 | 01/04/2018 2:48 PM | | | | | PDT | | + + + + + documented in this encounter Patient Instructions Patient Instructions Pamela Ford MA - 01/04/2018 3:00 PM PDTThank you for choosing [facility] Department of Otol[facility]ology for your health care needs. If you need to speak to an ENT physician after normal business hours, please call [phone] and ask to have the ENT phys ician institutional custodian paged. documented in this encounter Progress Notes Ruth Marinelli SLP - 01/04/2018 3:00 PM PDT Clinic: [facility] Referring Physician: Javier Montaño MD [address] [place] [address] PCP: Daniel Cannon MD Medical Diagnosis: Cancer of the glottis Date of Onset for This Diagnosis: 12/20/2017 Treatment Diagnosis: Dysphonia Start of Care Date: 01/04/2018 Duration of session: 60 minutes Session Number: 1 SUBJECTIVE: Ronni Chowdhury is a 47 y[address] male of Dr. Montaño referred to the [facility] in for Voice and Swallowing for evaluation of head and neck cancer. Mr. Chowdhury has a 6 mon th history of hoarseness that failed to respond to antibiotics and proton pump inhibitor. Suresh ji is here with his . 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 The patient stated his name and date of to confirm identity prior to the examination and procedure. REASON FOR REFERRAL: The patient has a 6 month history of voice problems. The patient rep orted that her voice is hoarse,. The patient complained of voice loss,, poor vocal enduranc e,, voice fading with use,, poor ability to yell or project voice and difficulty using the p tyrese,. This evaluation was completed in cooperation with Dr. Pasquale Moscoso M.D.. Please refer to his report for details regarding the medical diagnosis. VOCAL HYGIENE: The patient drinks 64 oz. of water, 64 oz. of coffee per day and 18 cans of beer every evening. The patient's vocal demands high for work. 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 Vocal demands include talking on the phone, conversations, talking over noise and yelling. The patient does complain of reflux symptoms. SINGING: n/a SWALLOWING: No complaints PSS Speech and Swallowing Scales: PSS-Speech score: Usually understandable, tsju-bd-bagu contact necessary (PSS-Speech 50). PSS-Normalcy of Diet score: 100, full diet (no restrictions). PSS-Eating in Public score: 100, no restriction of place, food, or tariff compiling clerk. PERCEPTUAL ASSESSMENT: The patient's voice was severely dysphonic and characterized by a h oarse, pressed, strained and breathy vocal quality. There were no audible spasms during [place]. There was no tremor noted during speech. The patient's pitch was high for his age and gender. Loudness was low but adequate for 1:1 conversation. Articulation was within nor mal limits. Speech rate was within normal limits. Resonance was within normal limits. Teresa athing pattern was normal. Breath support for speech was poor. Coordination of breath and voice was poor. The patient's speech intelligibility was approximately 100%. CAPE-V resul ts revealed overall Severe dysphonia. LARYNGEAL EXAMINATION: Laryngovideostroboscopy was completed using the flexible distal chi p telescope. The patient was sprayed with Lidocaine and Phenylephrine to each nostril prior to the examination after verbal consent. The patient tolerated the procedure well. The voc al folds were well poorly visualized. The vocal folds were dull with straight edges. 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 Range of motion for vocal fold abduction was absent on the Right. Range of motion for vocal fold adduction was absent on t he Right. There was increased supraglottic activity during phonation and connected speech. Supraglottic activity was characterized by moderate lateral squeezing of the false vocal fol ds. The patient was not able to achieve more relaxed phonation with trial therapy. Vocal fold elongation during glissando was decreased Right. During stroboscopy, vertical level of the vocal folds was equal. Glottic closure was complete. The mucosal wave was absent on the right. Amplitude of vibration was decreased on the Right. Patient education was completed with pre-operative information for a supracricoid laryngect elinor. Discussed at length the effects surgery will have on voice and swallowing, the need fo r a temporary tracheostomy tube and gastrostomy tube as well as the need for extensive dysph agia therapy. Hospital course, rehabilitation and recovery timelines discussed. The patien t is adept at e-mail, texting and would be interested in text to speech software while recov ering. The patient drinks a significant amount of alcohol a day. He understand this will b e need to be addressed post-operatively. The patient and appear to understand the info rmation presented today. SUMMARY: The patient presented with R TVF lesion which results in severe dysphonia which i s impacting his ability to communicate at work. Surgical options discussed. PLAN: Supracricoid laryngectomy - f/u post-operatively as medically appropriate. Ruth Marinelli, Ph.D., [facility]-INVESTMENT MANAGER Community Relations Representative Director, [facility]ing Otolaryngology, Head and Neck Surgery [facility] [place] [phone] documented in this e ncounter Plan of Treatment +--------+---------+ + + + | Date | Type | Specialty | Care Team | Description | +--------+---------+ + + + | 03/19/ | Office | Otolaryngology | Pasquale Moscoso | | | 2019 | Visit | | MD [place] [address] | | | | | | [address] | | | | | | [place], [place] | | | | | | [address] | | | | | | [phone] | | | | | | | | +--------+---------+ + + + documented as of this encounter Procedures + +--------+ + + + | Procedure Name | Priori | Date/Time | Associated Diagnosis | Comments | | | ty | | | | + +--------+ + + + | [facility] | Routin | 01/14/2018 | Dysphonia | | | QUALITATIVE ANALYSIS | e | 11:31 PM | Malignant neoplasm | | | OF VOICE AND | | PDT | of glottis (HCC) | | | RESONANCE | | | | | + +--------+ + + + | NC | Routin | 01/14/2018 | Dysphonia | | | LARYNGOSCOPY,VIVIEN/RI | e | 11:31 PM | Malignant neoplasm | | | GID+STROBOSCOPY | | PDT | of glottis (HCC) | | + +--------+ + + + documented in this encounter Visit Diagnoses + + | Diagnosis | + + | Dysphonia | + + | Malignant neoplasm of glottis (HCC) Malignant neoplasm of glottis | + + documented in this encounter"
--- OUTSIDE RECORDS SUMMARY | ~2019-10-09 | XMS | Encounter Summary ---
Demographics + + + | Address | [address] | | | [place] [address] | + + + | Home Phone | | + + + | Preferred Language | Unknown | + + + | Marital Status | | + + + | Sabianist Affiliation | Unknown | + + + | Race | Unknown | + + + | Ethnic Group | Unknown | + + + Author + + + | Author | [facility] | | | and [place] | + + + | Organization | [facility] | | | [...] Team Providers + +------+ + | Care Shell Molder Name | Role | Phone | + +------+ + PCP | Unavailable | + +------+ + Encounter Details +--------+ + + + + | Date | Type | Department | Care Team | Description | +--------+ + + + + | 01/10/ | Hospital | [facility] | Daniel Cannon | | | 2011 | Encounter | MED CTR GENERIC OP | MD [address] | | | | | CONV DEPT [address] | [facility] | | | | | [address], | [place] [address] | | | | | [place] [address] | [phone] | | | | | [phone] | | | +--------+ + + + [...] [place] | | | | | | [address] | | | | | | | [...] Performed At | + + + | [facility] Diagnostic Imaging Department | [facility] | | [address] [facility][1] | [facility] | | CHEST, TWO VIEWS CLINICAL | [...] Transcribed | | | Date/Time: 01/11/2012 09:30 Lumber Straightened: | | | <Electronically Signed by Pedro Zacarias MD> 01/11/12 [id number] | | + + + + + | Procedure Note | + + | Tio, Rad Conversion - 11/23/2013 5:00 PM [facility] | | Diagnostic Imaging Department [address] [place] [address] | | CHEST, TWO VIEWS CLINICAL HISTORY: [...] by Pedro Zacarias MD> | | 01/11/12 [id number] | |COMPARISON: None. | | | |FINDINGS: [...] 08:59 | |Transcribed Date/Time: 01/11/2012 09:30 | |Lumber Straightened: | |<Electronically Signed by Pedro Zacarias MD> [...]
--- OUTSIDE RECORDS SUMMARY | ~2019-10-09 | XMS | Encounter Summary ---
Demographics + + + | Address | [address] | | | [place] [address] | + + + | Home Phone | | + + + | Preferred Language | Unknown | + + + | Marital Status | | + + + | Buddhist Affiliation | NRP | + + + | Race | White | + + + | Ethnic Group | Not or | + + + Author + + + | Author | [facility] | + + + | Organization | [facility] | + + + | Address | Unknown | + + + | Phone | Unavailable | + + + Support + + + + + | Name | Relationship | Address | Phone | + + + + + | Cecile Chowdhury | ECON | [address] | | | | | [place] [address] | | + + + + + Care Team Providers + +------+ + | Care Legal Intern Name | Role | Phone | + [...] | | Laryngology Services | MD Sidney [address] | | | | | at [facility] [address] | | | | | [place], | [place], [place] | | | | | [place] [address] | [address] | | | | | [phone] | [phone] | | | | | | | [...] [address] | | | | | | [place] | | | | | | [address] | | | | | | [phone] | | | | | | | | +--------+---------+ + + + documented as of this encounter Visit Diagnoses Not on filedocumented in this encounter"
--- OUTSIDE RECORDS SUMMARY | ~2019-10-09 | XMS | Encounter Summary ---
Demographics + + + | Address | [address] | | | [place] [address] | + + + | Home Phone [...] | | | | [place] [address] | | + + + + + Care Team Providers + +------+ + | Care Public Administration Teacher Name | Role | Phone | + +------+ + | Daniel Cannon MD | PCP | | + +------+ + Encounter Details +--------+--------+ + + + | Date | Type | Department | Care Team | Description | +--------+--------+ + + + | 06/20/ | Travel | | | | | [...] [address] | | | | | | [place] | | | | | | [address] | | | | | | [phone] | | | | | | | | +--------+---------+ + + + documented as of this encounter Visit Diagnoses Not on filedocumented in this encounter"
--- OUTSIDE RECORDS SUMMARY | ~2019-10-09 | XMS | Encounter Summary ---
Demographics + + + | Address | [address] | | | [place] [address] | + + + | Home Phone | | + + + | Preferred Language | Unknown | + + + | Marital Status | | + + + | Evangelical Affiliation | Unknown | + + + | Race | Unknown | + + + | Ethnic Group | Unknown | + + + Author + + + | Author | [facility] | | | and [place] | + + + | Organization | [facility] | | | and [...] Team Providers + +------+ + | Care Casino Runner Name | Role | Phone | + [...] Brianna MAY | | | | | [phone] | [place] [address] | | +--------+ + + + + [...] [address] | | | | | | [place] | | | | | | [address] | | | | | | | [...]
--- OUTSIDE RECORDS SUMMARY | ~2019-10-09 | XMS | Encounter Summary ---
Demographics + + + | Address | [address] | | | [place] [address] | + + + | Home Phone | | + + + | Preferred Language | Unknown | + + + | Marital Status | | + + + | Scientology Affiliation | Unknown | + + + | Race | Unknown | + + + | Ethnic Group | Unknown | + + + Author + + + | Author | [facility] | | | and [place] | + + + | Organization | [facility] | | | [...] Team Providers + +------+ + | Care Radio Engineer Name | Role | Phone | + [...] + | 09/18/ | Office | [facility] | [place], | Asthma; | | 2011 | Visit | PULMONARY [address] | Latisha Dominguez MD | Tobacco abuse; | | | | [place], | | Allergic rhinitis; | | | | [place] [address] | | Needs flu shot | | | | [phone] | | | +--------+---------+ + + + [...] PM PSTAgustín 2011 Ronni Chowdhury [address] [place] [address] [place] [address] Dear Ronni: Thank you for enrolling in [facility]. Please follow the instructions below to view your [facility] online medical record. [facility] allows you to send secure messages to your doctor, view you r test results, renew your prescriptions, schedule appointments, and more. How Do I Sign Up? 1. In your Internet browser, go to [email or web address] 2. Click on the Sign Up Now link in the Sign In box. This will take you to the New [facility] r Sign Up page. 3. Enter your [facility]os access code exactly as it appears below. You will not need to use this code after you sign up. If you do not sign up before the expiration date, you must requ est a new code through your [facility]. [facility] Access Code: [email or web address] Expires: 11/17/2012 15:17 4. Fill in the last four digits of your Social Security Number (xxxx) and Date of (mm/dd/yyyy) when asked and click Submit. You will now be asked to create a [facility] ID. 5. Create a [employer] ID. This will be your [facility] login ID. Your login ID cannot be foss ged, so think of one that is secure and easy to remember. 6. Create a [facility]os password. You can change your password at any time. 7. Enter your Password Reset Question and Answer. This can be used at a later time if yo u forget your password. 8. Enter your e-mail address. You will receive e-mail notification when new information is available in [facility]. 9. Click Sign Up. You may now view your medical record. Additional Information If you have questions, you can email [email or web address] or call [phone] to talk to our [facility] care team. Please remember, [facility]os should NOT be used fo r urgent [...] about 21 ounces of alcohol per w squaxin. He reports that he does not use [...] His symptoms are markedly improved with the change lead to Advair from Flovent. Given that he [...] chary as needed. Needs flu shot - [place] FLU VACCINE =>3YO PRESERVATIVE FREE IM Return [...] N[place] | | | | | | [place], [place] | | | | | | [...]
--- OUTSIDE RECORDS SUMMARY | ~2019-10-09 | XMS | Encounter Summary ---
Demographics + + + | Address | [address] | | | [place] [address] | + + + | Home Phone | | + + + | Preferred Language | Unknown | + + + | Marital Status | | + + + | Yarsani Affiliation | Unknown | + + + | Race | Unknown | + + + | Ethnic Group | Unknown | + + + Author + + + | Author | [facility] | | | and [place] | + + + | Organization | [facility] | | | [...] Team Providers + +------+ + | Care Building Pressure Washer Name | Role | Phone | + +------+ + | Daniel Cannon MD | PCP | | + +------+ + Reason for Visit + + + | Reason | Comments | + + + | Follow-up | | + + + Evaluate & Treat (Routine) + +--------+ + + + + | Status | Reason | Specialty | Diagnoses / | Referred By | Referred To | | | | | Procedures | Contact | Contact | + +--------+ + + + + | Authorized | | Radiation | Diagnoses | [facility] | [facility], | | | | Oncology | SCC glottis | Radiation | Naida Salinas MD | | | | | Procedures | Oncology | [address] | | | | | OFFICE | Clinic [address] | | | | | VISIT | [address] | [place], | | | | | EXTENDED | [place], | [place] [address] | | | | | | [place] | Phone: | | | | | | [address] | [phone] | | | | | | Phone: | Fax: | | | | | | [phone] | [phone] | | | | | | Fax: | | | | | | | [phone] | | + +--------+ + + + + Encounter Details +--------+ + + + + | Date | Type | Department | Care Team | Description | +--------+ + + + + | 12/27/ | Hospital | [facility] | Naida Burnette | Malignant neoplasm | | 2019 | Encounter | [facility] | MD Brad [address] | of glottis (HCC) | | | | ONCOLOGY CLINIC [address] | [place], [place] | (Primary Dx) | | | | [address] | [address] | | | | | [place] [address] | | | | | | [phone] | | | +--------+ + + + [...] + + + | Blood Pressure | 147/91 | 12/27/2018 3:20 PM | | | | | PDT | | + + + + + | Pulse | 94 | 12/27/2018 3:20 PM | | | | | PDT | | + + + + + | Temperature | 37.1 C (98.8 F) | 12/27/2018 3:20 PM | | | | | PDT | | + + + + + | Respiratory Rate | 16 | 12/27/2018 3:20 PM | | | | | PDT | | + + + + + | Oxygen Saturation | 97% | 12/27/2018 3:20 PM | | | | | PDT | | + + + + + | Inhaled Oxygen | - | - | | | Concentration | | | | + + + + + | Weight | 97.4 kg (214 lb 11.7 | 12/27/2018 3:20 PM | | | | oz) | PDT | | + + + + + | Height | - | - | | + + + + + | Body Mass Index | 27.56 | 07/19/2018 12:34 PM | | | [...] + +---------+ + + | amoxicillin | 500 mg 3 times | | 0 | 12/25/19 | | | (AMOXIL) 500 MG | daily. | | | 19 | 9 | | capsule | | | | | | + + + +---------+ + + documented as of this encounter Progress Notes Naida Burnette MD - 12/27/2018 3:24 PM PDT Radiation Oncology Follow-up Chief Complaint/ICD10 ICD-10-CM ICD-9-CM 1. 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 Moscoso, [facility] Surgery indicated: Supracricoid partial laryngectomy sparing [...] neck mass CT neck on 05/29/18 at [facility] abscess at anterior neck. I&D and [...] 54 Gy (concurrently with IMRT/VMAT dose painting). -Bhargav completed radiation 3 months ago and returns for routine follow-up. Earlier today he also underwent CT of the neck with contrast. -In the interim he was seen in consultation by Dr. Aleman, infectious disease specialist in [facility]. 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 Dr. Aleman rec ommended 6 months of antibiotics. Bhargav reports that he has been diligent about taking his an tibiotics. He has not experienced any recurrence of neck abscess. -Overall he reports feeling well. He tolerated radiation quite well and only experienced m oderate discomfort with swallowing. Odynophagia has improved. He reports occasional cough and needing to clear his throat. Continues to be a heavy tobacco user. It has not identifi ed any lumps or nodules. Denies symptoms of choking while eating. Voice remains very breat hy since radiation, at this point only slightly improved -Energy appetite and weight are stable. Review of systems: REVIEW OF SYSTEMS Constitutional: Denies fatigue. Denies high fevers, shaking chills, anorexia, nausea, vomit ing, weight loss, or night sweats. Appetite without changes. Ear, Nose, Mouth, Throat: Reports chronic tinnitus, unchanged. Denies odynophagia, dysphagi a. Cardiovascular: Denies shortness of breath, dyspnea on exertion, chest pain, palpitations o r orthopnea. Respiratory: Reports intermittent cough due to needing to clear throat, clear in color. Den ies hemoptysis. Gastrointestinal: Denies abdominal pain, constipation, diarrhea, melena, or bright red bloo d per rectum. Genitourinary: Denies hematuria or dysuria. Musculoskeletal: Denies joint pain or tenderness. Neurologic: Denies headache, visual changes, or numbness/tingling of the extremities. Endocrine: Denies peripheral edema or heat/cold intolerance. Hematologic: Denies spontaneous bruising or bleeding. Integumentary: Denies rash, wounds or other skin concerns. Pain: Denies pain. Note: Here for [address] Burnette, had CT today. My chart: Active Pain assessment: Location: NA Pain Level: PAIN PROG PAIN LEVEL: 0 Current Outpatient Prescriptions Medication Sig Dispense Refill acetaminophen (TYLENOL) 500 mg tablet Take 1 tablet by mouth. ADVAIR DISKUS 500-50 MCG/DOSE diskus inhaler inhale 1 puff by mouth INTO THE LUNGS 2 TI MES DAILY (Patient not taking: Reported on 09/21/2018) 60 each 11 amLODIPine (NORVASC) 10 MG tablet Take by mouth Daily. amoxicillin (AMOXIL) 500 MG capsule 500 mg 3 times daily. 0 kbzxeplypwWAPCW-prpkteaui-eygsizpp & magnesium hydroxide-simethicone (MAGIC MOUTHWASH) Swish and [...] active allergies Intolerance No active intolerances/contraindications Vitals: 12/27/18 1520 BP: (!) 147/91 Pulse: 94 Resp: 16 Temp: 37.1 C (98.8 F) Wt Readings from Last 3 Encounters: 12/27/18 97.4 kg (214 lb 11.7 oz) 09/21/18 97.2 kg (214 lb 4.6 oz) 09/14/18 96.6 kg (212 lb 15.4 oz) Physical Exam: General: Healthy appearing robust man in no acute medical distress. KPS: 90-100 HEENT: Pupils equal, round and reactive to light. No conjunctival icterus or injection. EOM I. Oral, moist mucus membranes. Lymphatic: No cervical, supraclavicular or axillary lymphadenopathy. Well-healed surgical incision on the neck, moderate fibrosis. No recurrent fullness or induration at site of daphne or abscess. Cardiovascular: Regular rate and rhythm, no murmur. [...] to visualize. Relevant findings are reported here: Operative changes visualized in the larynx, mild erythema and edema from radiation treatmen t. Fullness in the left larynx. No obvious mucosal abnormalities or masses appreciated, exa m limited by patient tolerance. Labs: No recent results. Imagin12/27/18 CT Neck with contrast FINDINGS: Visualized brain: No focal abnormality appreciated. Orbits: Unremarkable. Paranasal sinuses: Minimal maxillary and mild scattered ethmoid sinus disease. Bones: No acute osseous abnormality. No osteoblastic or osteolytic lesion. Reversal of the normal cervical lordotic curvature. Moderate degenerative disc disease at C5-C6 and C6-C7. Mild degenerative disc disease at C4-C5 and C7-T1. Nasopharynx: No asymmetric soft tissue or evidence to suggest a mass lesion. Suprahyoid neck: Normal oropharynx, oral cavity, parapharyngeal space, and retropharyngeal space. Infrahyoid neck: There is poorly marginated soft tissue prominence at the left piriform sinus extending inferiorly into the left aspect of the larynx with more focal asymmetric soft tissue nodularity between the true and false vocal cords. This entire area measures approximately 2.9 cm in the craniocaudal dimension and up to 1.2 x 1.1 cm in the axial dimension. The previously described somewhat ill-defined soft tissue at the right neck base has significantly decreased in size and measures up to 10 x 7 mm. Lymph nodes: No lymphadenopathy. Thyroid: Unremarkable. Thoracic inlet: Emphysematous changes are noted at the lung apices. Vascular structures: Unremarkable. IMPRESSION - Significant interval decreased size of the previously described hypermetabolic soft tissue at the right neck base, currently measuring up to 10 mm. Asymmetric soft tissue prominence at the left piriform sinus with inferior extension into soft tissue nodularity between the left true and false vocal cords. This may represent new or recurrent malignancy. Consider MRI and/or laryngoscopy for further assessment. Dictated and Signed by: Anselmo Marie MD Assessment and Plan: ICD-10-CM ICD-9-CM 1. 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 However CT scan of obtained earlier today raises concern for a new soft tissue prominence within the left piriform sinus. These findings were discussed wi th Dr. Moscoso at [facility] who recommends exam in his office. This information was conveyed t rosalva Rudolph and his . Pending exam by Dr. Moscoso, we will anticipate ongoing surveillan ce if there are no significant findings. He should continue to have laryngoscopy every 2-3 months. Repeat imaging in 3 months, possibly with PET/CT or MRI may also be considered. -Follow-up with Dr. Moscoso for more extensive exam. -Follow-up with me in 3-6 months, alternating with Dr. Moscoso, pending upcoming evaluati on. Thank you for allowing me to participate in the care of Ronni Chowdhury. If you should have any questions regarding this evaluation, please do not hesitate to contact me. Naida Burnette M.D. Radiation Oncologist Department of Radiation Oncology [facility] Office: [phone] CC: Patient Care Team: Daniel Cannon MD [...] | | | | | | [place], [place] | | | | | | [address] | | | | | | | | +--------+ + + + + documented as of this encounter Visit Diagnoses + + | Diagnosis | + + | Malignant neoplasm of glottis (HCC) - Primary Malignant neoplasm of glottis | + + documented in this encounter
--- OUTSIDE RECORDS SUMMARY | ~2019-10-09 | XMS | Encounter Summary ---
Demographics + + + | Address | [address] | | | [place] [address] | + + + | Home Phone | | + + + | Preferred Language | Unknown | + + + | Marital Status | | + + + | Hindu Affiliation | Unknown | + + + | Race | Unknown | + + + | Ethnic Group | Unknown | + + + Author + + + | Author | [facility] | | | and [place] | + + + | Organization | [facility] | | | [...] Team Providers + +------+ + | Care Cow Tester Name | Role | Phone | + +------+ + | Daniel Cannon MD | PCP | | + +------+ + Reason for Visit +--------+ + | Reason | Comments | +--------+ + | Other | | +--------+ + Encounter Details +--------+ + + + + | Date | Type | Department | Care Team | Description | +--------+ + + + + | 05/17/ | Telephone | [facility] | Naida Burnette | Other | | 2019 | | [facility] | MD Brad [address] | | | | | ONCOLOGY CLINIC [address] | [place], [place] | | | | | [address] | [address] | | | | | [place] [address] | | | | | | [phone] | | | +--------+ + + + [...]
--- OUTSIDE RECORDS SUMMARY | ~2019-10-09 | XMS | Encounter Summary ---
Demographics + + + | Address | [address] | | | [place] [address] | + + + | Home Phone | | + + + | Preferred Language | Unknown | + + + | Marital Status | | + + + | Mandaen Affiliation | Unknown | + + + | Race | Unknown | + + + | Ethnic Group | Unknown | + + + Author + + + | Author | [facility] | | | and [place] | + + + | Organization | [facility] | | [...] Team Providers + +------+ + | Care Sourcing Consultant Name | Role | Phone | [...] | +--------+ + + + + | 08/03/ | Hospital | [facility] | Naida Burnette | Malignant neoplasm | | 2018 | Encounter | [facility] | MD Brad [address] | of glottis (HCC) | | | | ONCOLOGY CLINIC [address] | [place], [place] | (Primary Dx) | | | | [address] | [address] | | | | | [place] [address] | | | | | | [phone] | | | +--------+ + + + [...] + + + | Blood Pressure | 129/84 | 08/03/2018 10:27 AM | | | | | PDT | | + + + + + | Pulse | 97 | 08/03/2018 10:27 AM | | | | | PDT | | + + + + + | Temperature | 37.1 C (98.8 F) | 08/03/2018 10:27 AM | | | | | PDT | | + + + + + | Respiratory Rate | - | - | | + + + + + | Oxygen Saturation | 98% | 08/03/2018 10:27 AM | | | | | PDT | | + + + + + | Inhaled Oxygen | - | - | | | Concentration | | | | + + + + + | Weight | 98.8 kg (217 lb 13 | 08/03/2018 10:27 AM | | | | oz) | PDT | | + + + + + | Height | - | - | | + + + + + | Body Mass Index | 27.95 | 07/19/2018 12:34 PM | | | [...] by | 60 each | 11 | / | | | 500-50 MCG/DOSE | mouth [...] + + + +---------+ + + | citalopram | Take 1 tablet by | | 0 | 07/25/20 | | | (CELEXA) 10 mg | mouth Daily. | | | 18 | 8 | | tablet | | | | | | + + + +---------+ + + | LORazepam (ATIVAN) | Take 1 tab 60 min | 10 | 0 | 08/01/20 | | | 1 mg tablet | prior to radiation, | tablet | | 18 | 8 | | | if needed may take a | | | | | | | second tab. | | | | | + + + +---------+ + + | naltrexone (REVIA) | Take 1 tablet by | | 0 | 07/25/20 | | | 50 mg tablet | mouth Daily. | | | 18 | 8 | [...] documented as of this encounter Progress Notes Patsy Koch RN - 08/03/2018 10:42 AM PDTMet with patient today for nurse education. Ve rbal and written education given to patient regarding general radiation therapy side effects as well as site specific side effects. Reviewed process of OTV day for their doctor, all q uestions at this time were answered. Naida Beltran M D - 08/03/2018 10:34 AM PDT Radiation Oncology Weekly On Treatment Note Diagnosis: ICD-10-CM ICD-9-CM 1. 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 Corre ctions were applied as necessary. Allergies Allergen Reactions Clindamycin Current Outpatient Prescriptions on File Prior to Encounter Medication Sig Dispense Refill acetaminophen (TYLENOL) 500 mg tablet Take by mouth. ADVAIR DISKUS 500-50 MCG/DOSE diskus inhaler inhale 1 puff by mouth INTO THE LUNGS 2 TI MES DAILY (Patient not taking: Reported on 07/19/2018) 60 each 11 amLODIPine (NORVASC) 10 MG tablet Take by mouth Daily. gabapentin (NEURONTIN) 300 mg capsule Take by mouth 3 times daily as needed. LORazepam (ATIVAN) 1 mg tablet Take 1 tab 60 min prior to radiation, if needed may take a second tab. 10 tablet 0 oxyCODONE (ROXICODONE) 5 mg tablet Take 5 mg by mouth every 4 hours as needed. Take 1-3 tablets every 4 hours as needed. penicillin 500 mg tablet take 1 tablet by mouth every 6 hours for SKIN INFECTION 0 PROAIR HFA 108 (90 BASE) MCG/ACT inhaler inhale 2 puffs by mouth INTO THE LUNGS EVERY 4 HOURS NEEDED FOR WHEEZING 8.5 g 6 sildenafil (VIAGRA) 100 MG tablet Take 100 mg by mouth as needed for Erectile Dysfuncti on. Take 1 tablet by mouth daily 1 hour before if needed. No current facility-administered medications on file prior to encounter. 08/03/18 1034 General Disorders and Administration Site Conditions Fatigue 0 - Grade 0 Performance Status Karnofsky Performance Score 90% Pain assessment: Location: Throat Pain Level: PAIN PROG PAIN LEVEL: 3 Pain Quality: Sharp, Burning Current pain regimen: Oxycodone 5 mg in AM Wt Readings from Last 3 Encounters: 08/03/18 98.8 kg (217 lb 13 oz) 07/19/18 97.4 kg (214 lb 11.7 oz) 01/30/15 98.5 kg (217 lb 1.6 oz) Vitals: 08/03/18 1027 BP: 129/84 Pulse: 97 Temp: 37.1 C (98.8 F) TempSrc: Tympanic SpO2: 98% Weight: 98.8 kg (217 lb 13 oz) Physical Exam Constitutional: He appears well-developed and well-nourished. Neurological: He is alert. Skin: No rash noted. No erythema. Psychiatric: He has a normal mood and affect. Physician Assessment: Ronni is having difficulty tolerating the mask for treatment, with 1-2 mg Ativan he has be en able to get started with his treatment. No acute radiation side-effects. Reviewed self care and skin care. Toxicities reviewed in nursing note. Disposition: Continue radiation treatment as planned. Continue premed with ativan as needed. Naida Burnette MD Radiation Oncologist documented in this encounter Plan of Treatment +--------+ + + + + | Date | Type | Specialty | Care Team | Description | +--------+ + + + + | 01/01/ | Appointment | Radiation Oncology | [facility] | | | 2019 | | | MD Edi [address] | | | | | | [place], [place] | | | | | | [address] | | | | | | | | +--------+ + + + + documented as of this encounter Procedures + +--------+ + + + | Procedure Name | Priori | Date/Time | Associated Diagnosis | Comments | | | ty | | | | + +--------+ + + + | IMAGING REPORT - | | 12/15/2017 | | Results for this | | EXTERNAL SCAN | | 12:00 AM | | procedure are in the | | | | PST | | results section. | + +--------+ + + + documented in this encounter Results IMAGING REPORT - EXTERNAL SCAN (12/15/2017 12:00 AM PST) + + + | Narrative | Performed At | + + + | Ordered by an | | | unspecified provider. | | + + + documented in this encounter Visit Diagnoses + + | Diagnosis | + + | 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
--- OUTSIDE RECORDS SUMMARY | ~2019-10-09 | XMS | Encounter Summary ---
Demographics + + + | Address | [address] | | | [place] [address] | + + + | Home Phone | | + + + | Preferred Language | Unknown | + + + | Marital Status | | + + + | Hindu Affiliation | NRP | + + + | Race | White | + + + | Ethnic Group | Not or | + + + Author + + + | Author | [facility] | + + + | Organization | [facility] | + + + | Address | Unknown | + + + | Phone | Unavailable | + + + Support + + + + + | Name | Relationship | Address | Phone | + + + + + | Cecile Chowdhury | ECON | [address] | | | | | [place] [address] | | + + + + + Care Team Providers + +------+ + | Care Tierce Filler Name | Role | Phone | + [...] | | | | | | | [address] | | | | | | | [place], [place] | | | | | | | [address] | | | | | | | Phone: | | | | | | | [phone] | | | | | | | Fax: | | | | | | | [phone] | + +--------+ + + + + Encounter Details +--------+---------+ + + + | Date | Type | Department | Care Team | Description | +--------+---------+ + + + | 09/21/ | Office | Otolaryngology | Pasquale Moscoso | T3N0 SCCa, right | | 2019 | Visit | Laryngology Services | MD [facility] [address] | glottis (Primary | | | | at [address] | Dx); Pharyngeal | | | | [address] [place], | [place], [place] | dysphagia; | | | | [place] [address] | [address] | Dysphonia; Tobacco | | | | [phone] | [phone] | abuse; History of | | | [...] Weight | 90.7 kg (200 lb) | 09/21/2019 1:01 PM | | | | | PST | | + + + + + | Height | - | - | | + + + + + | Body Mass Index | 25.68 | 06/20/2018 2:00 PM | | | [...] encounter Progress Notes Pasquale Moscoso MD - 09/21/2019 1:00 PM PST PATIENT NAME: Ronni Chowdhury MR#: [id number] : 1970 REFERRING PROVIDER: Jorje Castillo MD [facility] ENT [address] [place] [id number] PRIMARY CARE PHYSICIAN: Daniel Cannon MD CLINIC: [facility] REASON FOR FOLLOW-UP: Chief Complaint Patient presents with Follow-up visit TUMOR TYPE/LOCATION: squamous cell carcinoma, right glottis TNM/STAGE: [id number]/Stage III IDENTIFICATION DATE: 1) 11/29/17; 3) Reidentified [...] with Dr. Grover, finishing in September of 2018. Mr. Chowdhury returns noting that he feels "fine." He notes no new problems. Continues to wor k. He denies throat pain. He has not noted any otalgia. He has not noted any voice change since the last visit. He denies stridor or noisy breathing. He does not note dyspnea on exe rtion. He continues to smoke. He has started Chantix in an effort to help quit smoking. Suresh ji continues to smoke between half pack and a full pack daily. He reports that his thyroid f unction was a little bit low when tested by Dr. Cannon, but he has not been started on thyro id replacement hormone yet. He is going in for another check of his thyroid function shortl y. He is not maintained on a proton [...] soft tissues of neck Right 06/20/2018 Dr. Moscoso-- actinomyces sp. identified ALLERGIES: No Known Allergies MEDICATIONS: Current Outpatient Medications Medication Sig albuterol 90 mcg/actuation inhalation HFA aerosol inhaler Inhale 1-2 puffs by mouth rashawn ry four hours as needed (shortness of breath, wheezing). amLODIPine 10 mg oral tablet Take 10 mg by mouth once daily. Indications: hypertension No current facility-administered medications for this visit. EXAMINATION: Wt 90.7 kg (200 lb) | BMI 25.68 kg/m | BSA 2.18 m Gen: He is a 48 y.o. [...] wheezing, stridor or wet vocal qual ity. There is no stridor with deep breathing. His chest is clear to auscultation bilateral ly. Heart: He has a regular rate and rhythm. His pulses are full. Neurologic: The patient is awake, alert and cooperative with the examination. Responses t o questions were judged to be appropriate throughout the interview. The extraoccular moveme nts are intact and symmetric throughout. The pupils are equal. Wave Guide Assembler strength does jessica ear full bilaterally. [...] 3+ roughness, 1-2+ breathiness, 1+ asthenia and 2 + tightness appreciated. There is no tremor noted with sustained vowel phonation. I am jeni ble to detect voice breaks. Glottal parsons is not detected. There is no diplophonia noted. A rticulation is normal. Resonance is normal. FLEXIBLE LARYNGOSCOPY: [...] les ions, ulceration or masses. There is no crusting noted. The left arytenoid is present. I t is is fully mobile. The remaining arytenoid is sensate. Closure is complete with breath holding. The subglottic airway is patent and without lesions or masses. It was well visual ized today. CT SCAN: Computed tomography of the chest demonstrates: EXAM: CT CHEST WO CONTRAST HISTORY: Laryngeal cancer COMPARISON: Outside CT 12/15/2017 TECHNIQUE: Helical scanning was obtained of the chest without intravenous contrast and revi ewed in soft tissue and lung algorithm. Coronal and sagittal images were also generated. FINDINGS: The visualized portions of the thyroid are unremarkable. Conventional three-vessel anatomy of the aortic branches. The heart is normal in size. No pericardial effusion. No pathologic ally enlarged thoracic lymph nodes. The lungs are clear. There is no pulmonary nodule or consolidation. No pleural effusion. No pneumothorax. No pulmonary edema. The central airways are patent. Trace biapical emphysemat ous changes are present. The visualized portions of the upper abdomen are unremarkable. No acute or suspicious osseous abnormality. IMPRESSION: No evidence of metastatic disease within the chest. I have personally reviewed the images and, if necessary, edited the report. I agree with th e report as now presented. Final signature: Rick Rico MD 09/21/2019 3:26 PM I have reviewed these images and agree with the radiologist's findings. 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 There is no evidence of recurrent or persistent disease at thi s time. The mucosa appears radiated with a diffuse chronic laryngitis consistent with tobacc o abuse, but no worrisome lesions or masses. I am delighted that he is continue to work on his smoking cessation. PLAN: I recommended continued periodic observation of his larynx. I will leave his thyroi d hormone levels to Dr. Cannon. He plans to see Dr. Grover in approximately 3 months. I c an see him in approximately 6 assuming he is looking good. I remain available to him at any time should his exam look concerning. Pasquale Moscoso M.D. Art Conservator Laryngology and Head & Neck Surgery d ocumented in this encounter Plan of Treatment +--------+---------+ + + + | Date | Type | Specialty | Care Team | Description | +--------+---------+ + + + | 03/19/ | Office | Otolaryngology | Pasquale Moscoso | | | 2019 | Visit | | MD [facility] [address] | | | | | | [address] | | | | | | [place], [place] | | | | | | [address] | | | | | | [phone] | | | | | | | | +--------+---------+ + + + documented as of this encounter Procedures + +--------+ + + + | Procedure Name | Priori | Date/Time | Associated Diagnosis | Comments | | | ty | | | | + +--------+ + + + | [place] | Routin | 09/21/2019 | T3N0 SCCa, right | | | LARYNGOSCOPY,FLEXIBL | e | 1:34 PM | glottis Pharyngeal | | | E, DIAGNOSTIC | | PST | dysphagia Dysphonia | | | | | | Tobacco abuse | | | | | | History of radiation | | | | | | therapy Chronic | | | | | | [...]
--- OUTSIDE RECORDS SUMMARY | ~2019-10-09 | XMS | Encounter Summary ---
Demographics + + + | Address | [address] | | | [place] [address] | + + + | Home Phone | | + + + | Preferred Language | Unknown | + + + | Marital Status | | + + + | Sikhism Affiliation | Unknown | + + + [...] Team Providers + +------+ + | Care Panel Instrument Repairer Name | Role | Phone | + [...] Description | +--------+--------+ + + + | 09/29/ | Refill | [facility] [place] | [place], | Medication Refill | | 2016 | | PULMONARY [address] | Latisha Dominguez MD | | | | | [place], | | | | | | [place] [address] | | | | | | [phone] | | | +--------+--------+ + + + [...] | | | | | [facility] [place] | | | | | | [id number] | | | | | | | | +--------+ + + + + documented as of this encounter Visit Diagnoses Not on filedocumented in this encounter"
--- OUTSIDE RECORDS SUMMARY | ~2019-10-09 | XMS | Encounter Summary ---
Demographics + + + | Address | [address] | | | [place] [address] | + + + | Home Phone | | + + + | Preferred Language | Unknown | + + + | Marital Status | | + + + | Confucianism Affiliation | NRP | + + + | Race | White | + + + | Ethnic Group | Not or | + + + Author + + + | Author | [facility] | + + + | Organization | [facility] | + + + | Address | Unknown | + + + | Phone | Unavailable | + + + Support + + + + + | Name | Relationship | Address | Phone | + + + + + | Cecile Chowdhury | ECON | [address] | | | | | [place] [address] | | + + + + + Care Team Providers + +------+ + | Care Digestion Operator Name | Role | Phone | [...] | Malignant | Pasquale S, | [address] | | | | | neoplasm of | [address] | | | | | glottis | [address] | Mailcode: | | | | | (HCC) | [address] | [facility] | | | | | Pharyngeal | [place], [place] | for Health | | | | | dysphagia | [address] | and Healing, | | | | | Dysphonia | Phone: | [address], | | | | | Tobacco | [phone] | 3rd Floor | | | | | abuse | Fax: | [place], [place] | | | | | Procedures | [phone] | [address] | | | | | CT CHEST WO | | Phone: | | | | | CONTRAST MS | | [phone] | | | | | CT | | Fax: | | | | | SCAN,THORAX, | | [phone] | | | | | W/O CONTRAST [...] | Malignant | Pasquale S, | [address] | | | | | neoplasm of | [address] | [address] | | | | | glottis | [address] | Mailcode: | | | | | (HCC) | [address] | [facility] | | | | | Pharyngeal | [place], [place] | for Health | | | | | dysphagia | [address] | and Healing, | | | | | Dysphonia | Phone: | [address], | | | | | Tobacco | [phone] | 3rd Floor | | | | | abuse | Fax: | [place], [place] | | | | | Procedures | [phone] | [address] | | | | | CT CHEST WO | | Phone: | | | | | CONTRAST MS | | [phone] | | | | | CT | | Fax: | | | | | SCAN,THORAX, | | [phone] | | | | | W/O CONTRAST | | | +--------+--------+ + + + + Encounter Details +--------+ + + + + | Date | Type | Department | Care Team | Description | +--------+ + + + + | 09/21/ | Hospital | Radiology/Imaging | Pasquale Moscoso | | | 2019 | Encounter | Lab at [facility] [address] | MD [place] [address] | | | | | [place] Mailcode: | [address] | | | | | [facility] | [place], [place] | | | | | Health and Healing, | [address] | | | | | [address], 3rd | [phone] | | | | | Floor [place], [place] | | | | | | [address] | | | | | | [phone] | | | +--------+ + + + [...] + + +---------+ + + | albuterol 90 | Inhale 1-2 puffs by | | 0 | | | | mcg/actuation | mouth every four | | | | | | inhalation HFA | hours as needed | | | | | | aerosol inhaler | (shortness of | | | | | | | breath, wheezing). | | | | | + + [...] 2020 | Visit | | MD [facility] [address] | | | | | | [address] | | | | | | [place], [place] | | | | | | [address] | | | | | | [phone] | | | | | | | | +--------+---------+ + + + documented as of this encounter Procedures + +--------+ + + + | Procedure Name | Priori | Date/Time | Associated Diagnosis | Comments | | | ty | | | | + +--------+ + + + | CT CHEST WO CONTRAST | Routin | 09/21/2019 | T3N0 SCCa, right | Results for this | | | e | 11:56 AM | glottis Pharyngeal | procedure are in the | | | | PST | dysphagia Dysphonia | results section. | | | | | Tobacco abuse | | + +--------+ + + + [...]
--- OUTSIDE RECORDS SUMMARY | ~2019-10-09 | XMS | Encounter Summary ---
Demographics + + + | Address | [address] | | | [place] [address] | + + + | Home Phone | | + + + | Preferred Language | Unknown | + + + | Marital Status | | + + + | Mormonism Affiliation | Unknown | + + + | Race | Unknown | + + + | Ethnic Group | Unknown | + + + Author + + + | Author | [facility] | | | and [place] | + + + | Organization | [facility] | | | [...] Team Providers + +------+ + | Care Separator Tender Name | Role | Phone | [...] + + | Closed | Specialty | Occupational | Diagnoses | Vasile | Janna | | | Services | Therapy | Head and | Naida Salinas, | Oncology | | | Required | | neck cancer | [address] | | | | | (HCC) | [address] | [address] | | | | | Procedures | [place], | [place], | | | | | OT cancer | [place] [address] | [place] [address] | | | | | | Phone: | Phone: | | | | | | [phone] | [phone] | | | | | | Fax: | Fax: | | | | | | [phone] | [phone] | +--------+ + + + + + Encounter Details +--------+ + + + + | Date | Type | Department | Care Team | Description | +--------+ + + + + | 09/11/ | Orders Only | [facility] | Naida Burnette | Head and neck cancer | | 2018 | | [facility] | MD Brad [address] | (HCC) (Primary Dx) | | | | ONCOLOGY CLINIC [address] | [place], [place] | | | | | [address] [place] | [address] | | | | | [place] [address] | | | | | | [phone] | | | +--------+ + + + [...] | | | | | | [place], [place] | | | | | | [address] | | | | | | | | +--------+ + + + + + + +--------+ + + | Name | Type | Priori | Associated Diagnoses | Order Schedule | | | | ty | | | + + +--------+ + + | * [facility] Occupational | Outpatient | Routin | Head and neck | Ordered: 09/11/2018 | | Therapy - AMB | Referral | e | cancer (HCC) | | | Referral | | | | | + + +--------+ + + documented as of this encounter Visit Diagnoses + + | Diagnosis | + + | Head and neck cancer (HCC) - Primary Malignant neoplasm of head, face, and neck | + + documented in this encounter"
--- OUTSIDE RECORDS SUMMARY | ~2019-10-09 | XMS | Encounter Summary ---
Demographics + + + | Address | [address] | | | [place] [address] | + + + | Home Phone | | + + + | Preferred Language | Unknown | + + + | Marital Status | | + + + | Confucianist Affiliation | NRP | + + + | Race | White | + + + | Ethnic Group | Not or | + + + Author + + + | Author | [facility] | + + + | Organization | [facility] | + + + | Address | Unknown | + + + | Phone | Unavailable | + + + Support + + + + + | Name | Relationship | Address | Phone | + + + + + | Cecile Chowdhury | ECON | [address] | | | | | [place] [address] | | + + + + + Care Team Providers + +------+ + | Care Relay Adjuster Name | Role | Phone | + +------+ + | Daniel Cannon MD | PCP | | + +------+ + Reason for Visit + + + | Reason | Comments | + + + | Pre-op evaluation | | + + + Encounter Details +--------+ + + + + | Date | Type | Department | Care Team | Description | +--------+ + + + + | 01/12/ | Telephone-S | Preoperative | | Pre-op evaluation | | 2017 | cheduled | Medicine Clinic at | | | | | | [facility] | | | | | | [address] | | | | | | [address] | | | | | | Mailcode: [address] | | | | | | [address] | | | | | | [address] [place], [place] | | | | | | [address] | | | | | | [phone] | | | +--------+ + + + + Anesthesia Record + + + + + | Procedure Name | Responsible | Anesthesia Start | Anesthesia Stop Time | | | Anesthesiologist | Time | | + + + + + | RIGHT DIRECT | Veronica Flowers, | 01/16/18 0830 | 01/16/181751 | | MICROLARYNGOSCOPY; | MD | | [...] 01/16/18909 by | 01/16/182351 by | | agata | Hand; 16 g; 01/16/18; 2351; No | Nelli Soliman, | Maximilian Rascon RN | | IV | longer present | | | +--------+ + + + | Drain | 01/16/18; 2509; MD Blanka; DERRICK | 01/16/18 1559 by | 01/20/18 1433 by | | | (10Fr); Left; neck; 2; 01/20/18; | Lorna Villeda RN | Ling Farah RN | | | 1433; Per protocol (removed by | | | | | Shannon from ENT team) | | | +--------+ + + + documented in this encounter Social History + +-------+ +--------+------+ | Tobacco Use | Types | Packs/Day | Years | Date | | | | | Used | | + +-------+ +--------+------+ | Light Tobacco Smoker | | 1.5 | 25 | | + +-------+ +--------+------+ + +---+---+---+ | Smokeless Tobacco: | [...] of this encounter Patient Instructions Patient Instructions Monica Villa RN - 01/12/2018 4:45 PM PDT PREOPERATIVE INSTRUCTIONS Do not eat or drink anything after midnight the night before surgery. TAKE the following medications with a sip of water on the morning of surgery: AMLODIPINE 10 MG TABLET CHANTIX STARTING MONTH BOX 0.5 MG (11)-1 MG (42) TABLETS IN DOSE PACK FLUTICASONE 500 MCG-SALMETEROL 50 MCG/DOSE BLISTR POWDR FOR INHALATION VENTOLIN HFA 90 MCG/ACTUATION AEROSOL INHALER Do NOT take the following medications on the morning of surgery: Unless otherwise directed by your surgeon, do not take any Aspirin, vitamin E or non-ludivina roidal anti-inflammatory (NSAIDs i.e. Advil, Aleve, Ibuprofen) or herbal supplements seven d ays prior to your surgery. These drugs may interfere with normal blood clotting and may caus e excessive bleeding and bruising during or after the surgery. If you need a pain medication for general purposes, use Tylenol as directed. If you are in doubt about any medications that you are taking, please contact our office . Important Guidelines Do not shave the surgical area Do not smoke, drink alcohol or use recreational drugs for 24 hours before your surgery Do not eat any hard candy or chew gum after midnight the night before your surgery. Watch for any change in your health condition. Let your surgeon know right away if you do not feel well. Do not wear makeup, perfume, lotions or powder. Remove any nail slovak from at least one fingernail. Do not [...] of your procedure. Surgery Check in Locations Admitting [facility], [facility] Surgery Check in Time: Someone from your surgeon's office or [facility] will provide you with information regarding your [...] it is after office hours, call the [facility] concrete crusher loader operator at [phone] and ask them to page your doc tor. documented in this encounter Plan of Treatment +--------+---------+ + + + | Date | Type | Specialty | Care Team | Description | +--------+---------+ + + + | 03/19/ | Office | Otolaryngology | Pasquale Moscoso | | | 2020 | Visit | | MD [facility] [address] | | | | | | [address] | | | | | | [place] | | | | | | [address] | | | | | | [phone] | | | | | | | | +--------+---------+ + + + documented as of this encounter Visit Diagnoses Not on filedocumented in this encounter"
--- OUTSIDE RECORDS SUMMARY | ~2019-10-09 | XMS | Encounter Summary ---
Demographics + + + | Address | [address] | | | [place] [address] | + + + | Home Phone [...] + + + | Author | [facility] | + + + | Organization | [facility] | + + + | Address | Unknown | + + + | Phone | Unavailable | + + + Support + + + + + | Name | Relationship | Address | Phone | + + + + + | Cecile Chowdhury | ECON | [address] | | | | | [place] [address] | | + + + + + Care Team Providers + +------+ + | Care Installment Account Checker Name | Role | Phone | + [...] +--------+---------+ + + + | 06/20/ | Surgery | 4[address] INTRA OP [address] | Pasquale Moscoso | DIRECT | | 2018 | | LALO Hernandez | MD [place] [address] | MICROLARYNGOSCOPY | | | | Val Velasquez | [address] | WITH BIOPSY, | | | | Ambulatory Surgery | [place], [place] | | | | | Admitting Desk | [address] | | | | | Located on the 4th | [phone] | | | | | floor, Room [facility] | | | | | | [place], [place] | | | | | | [address] | | | +--------+---------+ + + + [...] + + + | Blood Pressure | 134/84 | 06/21/2018 9:27 AM | | | | | PDT | | + + + + + | Pulse | 91 | 06/21/2018 9:27 AM | | | | | PDT | | + + + + + | Temperature | 36.4 C (97.5 F) | 06/21/2018 9:27 AM | | | | | PDT | | + + + + + | Respiratory Rate | 18 | 06/21/2018 9:27 AM | | | | | PDT | | + + + + + | Oxygen Saturation | 94% | 06/21/2018 9:30 AM | | | | | PDT | | + + + + + | Inhaled Oxygen | - | - | | | Concentration | | | | + + + + + | Weight | 95.3 kg (210 lb) | 06/20/2018 2:00 PM | | | | | PDT | | + + + + + | Height | 188 cm (6' 2") | 06/20/2018 2:00 PM | | | [...] + + documented as of this encounter Discharge Summaries Lamin Osullivan PA-C - 06/21/2018 8:38 AM PDT DOS: 06/21/2018 8:38 AM INPATIENT PHYSICIAN DISCHARGE SUMMARY Author: LAMIN OSULLIVAN PA-C Attending Physician: Pasquale Moscoso MD PCP: Daniel Cannon MD Admission Date: 06/20/2018 Discharge Date: 21 Jun 2018 Diagnoses Principal Final Diagnosis: Right neck abscess Procedures Dr. Moscoso (ENT) Direct laryngoscopy and removal of right neck abscess Brief Hospital Course: The patient was taken to the OR on 06/20/2018 for the above procedures . During the procedure, no complications were noted. At the end of the procedure, appropriat e drain were placed, the patient was extubated, and transferred to the post-anesthesia care unit. Once recovered, the patient was transferred to the post-surgical hill where he remaine d for the rest of the hospitalization. The patient had no post-operative events. The patient was admitted to floor for observation and post-operative management. On the floor the patie nt was stable and without complications. The patient had stable respiratory status on room a ir. The surgical incisions remained clean, dry, and intact. By date of discharge patient was tolerating oral diet without abdominal pain, nausea or vomiting. The patient's pain was con trolled with oral medications. Patient discharged home with one DERRICK drain in the neck, and he was informed on appropriate follow-up care. Of note, intraoperative pus was noted on the abscess and thus pt was placed on IV abx and t hen switched to oral abx for total duration of 7 days. Medications: Medication List START taking these medications ciprofloxacin HCl 500 mg Tab Commonly known as: CIPRO Take 1 tablet by mouth two times daily for 7 days. Indications: soft tissue infection Notes to patient: For infection. Take until gone then STOP, course complete. If you accide ntally forget to take a dose, keep taking until no medication remains. Please contact prescr ibstevo with any questions, concerns, or for further guidance regarding this medication. oxyCODONE (immediate release) 5 mg Tab Commonly known as: ROXICODONE Take 1-2 tablets by mouth every four hours as needed for moderate pain. Notes to patient: For SEVERE pain. Take only NEEDED. Alternate with acetaminophen to op timize pain control. Causes constipation - adjust bowel meds acordingly. Please contact prov ider regarding any questions or concerns about this medication. polyethylene glycol 17 gram/dose Powd Commonly known as: MIRALAX Mix 17 g in liquid and drink once daily as needed (constipation). Notes to patient: For constipation. Adjust dose to effect. MAX 100g/day (17g = 1 capful or 1 packet). Soft, daily BM desired. Additionally consider oral Senna or Bisacodyl to help fa cilitate BM. Please contact prescriber with any questions, concerns, or for further guidance regarding this medication. Available tabc-gbd-rgijpuo. CHANGE how you take these medications acetaminophen 500 mg Tab Commonly known as: TYLENOL Take 1-2 tablets by mouth every six hours as needed for moderate pain (multimodal pain cont rol). What changed: how much to take how to take this when to take this reasons to take this Notes to patient: For MULTIMODAL pain control. ALTERNATE with IR oxycodone to optimize azalia n control. Do NOT exceed more than 4g per day. Available fgjc-fyq-ovgqjge. You have been taking this medication, 1000 mg, FOUR times daily while in the hospital. Co nsider taking on scheduled basis for 1-2 days on discharge, and then transition to as needed as pain improves gabapentin 300 mg Cap Commonly known as: NEURONTIN Take 1 capsule by mouth three times daily. Indications: Neuropathic Pain What changed: additional instructions Notes to patient: For nerve pain. Take SCHEDULED as previously prescribed. Works different ly than opioid (oxycodone-type) medications. Over time and regular dosing it helps lessen ne rve pain. Please contact provider with any questions, concerns, or for further guidance rega rding this medication. senna-docusate 8.6-50 mg Tab Commonly known as: SENOKOT S Take 1 tablet by mouth two times daily. What changed: when to take this reasons to take this Notes to patient: For constipation. Adjust dose to effect. MAX 8 tablets per day (4 in AM/ 4 in PM). Soft, daily BM desired. Aditionally consider oral Miralax or Bisacodyl to help fac ilitate BM. Please contact prescriber with any questions, concerns, or for further guidance regarding this medication. Available thmy-ieh-jfsjptw. CONTINUE taking these medications albuterol 90 mcg/actuation Hfaa Commonly known as: PROVENTIL, VENTOLIN Inhale 1-2 puffs by mouth every four hours as needed (shortness of breath, wheezing). Notes to patient: For shortness of breath and/or wheezing. Administer as prescribed previo usly to alleviate symptoms. Shake well before use. Prime prior to first use and whenever inh aler has NOT been used (greater than 2 weeks). Please contact prescriber with any questions, concerns, or for further guidance regarding this medication. amLODIPine 10 mg Tab Commonly known as: NORVASC Take 10 mg by mouth once daily. Indications: hypertension Notes to patient: For blood pressure. You have NOT been taking this medication this ad mission. Per team OK to RESUME taking as previously prescribed. HOLD for SBP less than 1 00 or DBP less than 60. Please follow-up with primary provider with any questions, concerns, or for further guidance regarding this medication. STOP taking these medications CHANTIX STARTING MONTH BOX 0.5 mg (11)- 1 mg (42) Dspk Generic drug: varenicline HYDROcodone-acetaminophen 5-325 mg Tab Commonly known as: NORCO Diet Regular Regular diet- There are no restrictions to your diet. You may eat or drink whatever you pr efer, though healthy food choices are recommended. Other Discharge Orders and Instructions OTOLARYNGOLOGY- HEAD AND NECK SURGERY SURGICAL DISCHARGE INSTRUCTIONS Please call our clinic with any concerns or questions about your hospital stay. After hour s, you may call ACTIVITY: Walking will be your primary source of exercise. It is very important that you walk at leas t three times a day. These can be short walks that you can gradually increase over time as y our strength improves. The majority of time should be spent out of bed. It is ok to take nap s if you are tired, but alternate napping with activity. WEIGHT BEARING RESTRICTIONS: No heavy lifting, nothing greater than 10lbs. For 2 weeks (a gallon of milk is approximatel y 8lbs.) PAIN: It is expected that you will have pain after surgery, and it is important to manage this pa in so that you can increase your activity, sleep, and heal well from surgery. You are being sent home with a prescription for narcotic pain medication - this is to be taken NEEDED t ypically every 4-6 hours. You may also substitute/supplement the narcotic medication with Ty lenol for milder pain. DO NOT TO TAKE MORE THAN 3,250MG OF TYLENOL IN 24HOURS. Please take n ote if the narcotic you have been prescribed contains Tylenol (acetaminophen). MEDICATIONS: Take pain medication as needed. Your pain should decrease over the next week. Wean yoursel f off pain medications as soon as possible. The regular use of narcotics (pain medications) can be habit forming, and they do impair judgement. Do not drive within 8 hours of taking any narcotic. Pain medications are constipating. You should have regular bowel movements, while on pain medications. Staying well hydrated and increasing fiber in your diet are good strategies. If you are still unable to have a bowel movement, over the counter stool softeners and laxat topher are appropriate to use. Miralax, Docusate, and Sennosides are a few examples. Your ph armacist can help pick a stool softener should you need further assistance. Medication Refill Instructions: For non-narcotic medication refills, please contact your pharmacy. If you think you will need a refill for the weekend, you must call by 3pm on to al low time for processing. Narcotics: If you need a refill on narcotic pain medications between 8am-3pm. If you think you will need a refill for the weekend, you must call by 3pm on Narcotic medications (Dilaudid, Oxycodone, Morphine, etc.) cannot be called or faxed in to any pharmacy; They must be either picked up in person or mailed to your home. NO REFILL REQU ESTS WILL BE TAKEN ON FRIDAYS OR . Prescriptions sent by mail will take 3 d ays. Prescriptions to be picked up in person will be ready by the next day. It is your responsibility to keep track of how much pain medication you have left. You may receive a phone call from the clinic inquiring about your pain; this is to find out if you are having expected post-surgical pain, or if you are having problems and need furth er evaluation. WOUND CARE: Keep the wound clean and dry. You may shower with soap and water. Pat your incision dry. Do not scrub your incision. Do not use hot tubs or take a bath until cleared by a surgeon. Apply a thin layer of petroleum jelly (Vaseline) or antibacterial ointment (Bacitracin) to the wound at least 2 times a day for one week. DRAINS: The drain will stay in place until your next office visit. The drain will help clear exces sive fluid caused by local inflammation. Some mild leakage around the tube is normal. Keep a clean gauze pad around the tube and secure it with tape. If there is a significant amoun t of leakage around the tube, please call the office for advice. DRAIN CARE 1. Empty drains and record output for each drain separately. 2. Collapse the bulb(s) so that it will continue to cause suction to the area to remove fl uid. 3. Support the drains using tape to skin or abdominal binder. 4. Do not have them dangling as this will cause tension to the insertion site. 5. Bring output record to your clinic visit. 6. Please notify us for any changes in color of drainage such as blood, thick bentley drainage or sudden increase in output. Call for new or increasing redness, or pain to insertion site; any additional questions or concerns. SYMPTOMS OF A SURGICAL SITE INFECTION: 1) Spreading redness and swelling from the incision. 2) Worsening or uncontrolled pain at the incision 3) Foul smelling or thick/creamy discharge from the incision 4) Chills or fever of a 101.4 degrees or higher FOLLOW-UP: Please contact your local doctor Daniel Cannon MD ([facility]) for drain removal. Protocol for drain removal if <30 ml within 24 hrs. 07/10/2018 9:00 AM Steven GONZALEZ Otolaryngolo 07/10/2018 9:45 AM MD POLINA [place] 07/21/2018 11:15 AM MD DEVANTE Hampton [place] HOW TO REACH US: Tuesday- Tuesday from 8:00am to 4:30pm, call the Otolaryngology clinic at [phone]. After hours, weekends, and holidays, call the [facility] communications equipment operator at [phone] and as k to have the ENT doctor on-call paged Future Appointments Date Time Provider Department Center 07/10/2018 9:00 AM Steven Young GONZALEZ Otolarynmarcelle 07/10/2018 9:45 AM MD POLINA Hampton Otestelleynmarcelle 07/21/2018 11:15 AM MD DEVANTE HamptonSuresh Barragan Vitals on discharge: Ht 1.88 m (6' 2"), Wt 95.3 kg (210 lb), BP 128/76, Pulse 73, Temperatu re 36.4 C (97.5 F), RR 16, SpO2 94%, BMI 26.96 kg/(m^2). Facility age limit for growth percentiles is 18 years. Physical Exam on discharge: General: awake, alert in NAD Neck: soft, flat, no evidence of any swelling, no crepitus Incision: c/d/i DERRICK x 1 right neck on bulb suction with 20 ml SS drainage Respiratory: Breathing unlabored on RA. No Stridor Outstanding labs/studies: Surgical Pathology Discharging Physician: LAMIN OSULLIVAN PA-C Attending Physician: Pasquale Moscoso MD I spent 63 minutes in the care of this patient. Greater than 50% of the time was spent cou nseling and coordination of care, including physical examination, wound management and coord inating follow-up appointment. LAMIN OSULLIVAN PA-C Department of Otolaryngology/Head and Neck Surgery Mail Code PV01 [address] [place] [address] Pager [phone] Consult/Night/Weekend Pager: [phone] documented in this encounter Discharge Instructions Instructions Patti Hugo RN - 06/21/2018Patient Education Materials: when to victor manuel reid MD, discharge paperwork, medications Additional Instructions: incision care, Dysphagia diet Learning About the Diet for Swallowing Problems What are swallowing problems? Difficulty swallowing is also called dysphagia (say "ccf-XKB-bde-uh"). It is most often a s ign of a problem with your throat or esophagus. This is the tube that moves food and liquids from the back of your mouth to your stomach. Trouble swallowing can occur when the muscles and nerves that move food through the throat and esophagus are not working right. To help you swallow food, your doctor or speech therapi st may advise a special dysphagia diet for you. Why is a special diet important? A dysphagia diet can help you handle some problems that can occur when it's hard to swallow food and liquids easily. These problems can include: Malnutrition. This means you aren't getting enough healthy foods to keep your body worki ng well. Dehydration. This means you aren't getting enough liquids to keep your body healthy. Aspiration. This means that food, liquid, or saliva goes down your windpipe (trachea) in to your lungs, instead of down your esophagus to your stomach. This can lead to aspiration p neumonia, which is an inflammation of the lungs. What is the dysphagia diet? In the dysphagia diet, you change the foods you eat and the liquids you drink to make it ea sier to swallow them. You may: Change the texture of the foods you eat. Your doctor or speech therapist may advise you to eat one of these types of foods: Solid, soft foods that have been cut up into small pieces. Extra gravy or sauce can help make these foods easier to swallow. Semi-solid foods, like ground meats or fruits and vegetables that are mashed with a fork . These foods require some chewing. Extra gravy or sauce is often served. Foods that are the texture of pudding. You don't have to chew these foods. Examples incl ude mashed potatoes with gravy; yogurt; pudding; and pureed meats, fruits, and vegetables. Thicken the liquids you drink. Your doctor or speech therapist will tell you what kind o f thickener to use and how thick to make the liquids. Oto-thick liquids leave a thin coating when they are poured from a spoon. Honey-thick liquids drip slowly when they are poured from a spoon. Pudding-thick liquids do not pour from a spoon. Your speech therapist will help you learn exercises to train your muscles to work together so you can swallow. You may also need to learn how to position your body or how to put food in your mouth to be able to swallow better. Some people have severe trouble swallowing and can't get enough food and liquids. In those cases, the doctor can insert a feeding tube so the person gets enough nutrients. Follow-up care is a motley part of your treatment and safety. Be sure to make and go to all ap pointments, and call your doctor if you are having problems. It's also a good idea to know y our test results and keep a list of the medicines you take. Where can you learn more? To learn more about "Learning About the Diet for Swallowing Problems", log into your LiveStories account at [email or web address]. You can enter R741 in the "m-[employer] Library" search box. Not on [employer]? Review the [employer] section of your After Visit Summary for directions on red dillard to sign up. Current as of: September 05, 2017 Content Version: .20055564-3851 [employer]. Care instructions adapted under license by [facility] [employer] [facility] [place]. If you have questions about a medical condition or this instr uction, always ask your healthcare professional. [employer] disclaims any carlos anty or liability for your use of this information. Learning About Swallowing Problems What are swallowing problems? Certain health problems that affect the nervous system can cause trouble swallowing. These conditions include stroke, ALS (also known as Fay Gehrig's disease), Parkinson's disease, an d multiple sclerosis. The muscles and nerves that help move food through the throat and esop hagus may not work right. Growths, such as cancer, and other problems with your esophagus ca n also make it hard to swallow. The esophagus is the tube that leads from your throat to you r stomach. How are swallowing problems diagnosed? A doctor or speech therapist will examine you to check for swallowing problems. You may get swallowing tests to check how well your throat muscles work. For these tests, you swallow a special liquid that helps the doctor see your throat and esophagus on an X-ray or video scr een. Other tests use a thin, flexible tube called a scope to check for problems with your esopha brodie. The doctor puts the scope in your mouth and down your throat to look at your esophagus. What are the symptoms? Symptoms of swallowing problems may include: Trouble getting food or liquids to go down on the first try. Gagging, choking, or coughing when you swallow. Having food or liquids come back up through your throat, mouth, or nose after you swallo w. Feeling like foods or liquids are stuck in some part of your throat or chest. Pain when you swallow. How are swallowing problems treated? How swallowing problems are treated depends on the cause. The main goals of treatment will be to help you eat and swallow safely and get good nutrition. This is important for your hea lth and quality of life. You may learn exercises to train your throat muscles to work together so you're able to swa llow better. Learning certain ways to put food in your mouth or to position your head while eating may also help. Your doctor or a speech therapist may recommend changes to your diet to help make it easier to swallow. You may need to avoid certain foods or liquids. You also may need to change the thickness of foods or liquids in your diet. To eat and swallow safely, follow any instructions you get from your doctor or therapist. T hese ideas may help: Sit upright when eating, drinking, and taking pills. Take small bites of food. Chew completely and swallow before taking another bite. Take small sips of liquids. If eating makes you tired, eat smaller but more frequent meals. Tip your chin down when there is food in your mouth. Where can you learn more? To learn more about "Learning About Swallowing Problems", log into your [employer] account at [email or web address]. You can enter D018 in the "m-Care Technology Library" search box. Not on [employer]? Review the [employer] section of your After Visit Summary for directions on ho w to sign up. Current as of: September 05, 2017 Content Version: 11.7 5808-5058 [employer]. Care instructions adapted under license by [facility]. If you have questions about a medical condition or this instr uction, always ask your healthcare professional. [employer] disclaims any carlos anty or liability for your use of this information. Discharge Nurse: Patti Hugo RN Date: 06/21/2018 Discharge Time: 8:43 AM AttachmentsThe following attachments cannot be sent through Care Everywhere.Post-op Infecti on (Congolese)documented in this encounter Medications at Time of [...] + + + +---------+ + + | ciprofloxacin HCl | Take 1 tablet by | 14 | 0 | 06/21/20 | | | 500 mg oral | mouth two times | tablet | | 18 | 8 | | tabletIndications: | daily for 7 days. | | | | | | soft tissue | Indications: soft | | | | | | infection | tissue infection | | | | | + + + +---------+ + + documented as of this encounter Progress Steven Alvarez SLP - 06/21/2018 10:29 AM PDTENT SPEECH PATHOLOGY-INPATIENT NOTE Order rec'd. Chart reviewed. 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 P t feels much better s/p procedure and reports that voice, breathing and swallowing are back to baseline. Denies any concerns. Will go home today and follow-up with Dr. Moscoso in 1 m [facility]. No other needs at this time. Steven Vidal, PhD, [facility]-DEVELOPING MACHINE OPERATOR [facility] [place] Dept. of Otolaryngology, [id number] [facility] [place] [address] do cumented in this encounter Plan of Treatment +--------+---------+ + + + | Date | Type | Specialty | Care Team | Description | +--------+---------+ + + + | 03/19/ | Office | Otolaryngology | Pasquale Moscoso | | | 2020 | Visit | | MD [place] [address] | | | | | | [address] | | | | | | [place], [place] | | | | | | [address] | | | | | | [phone] | | | | | | | | +--------+---------+ + + + documented as of this encounter Procedures + +--------+ + + + | Procedure Name | Priori | Date/Time | Associated Diagnosis | Comments | | | ty | | | | + +--------+ + + + | DIRECT LARYNGOSCOPY | Routin | 06/20/2018 | | Results for this | | WITH BIOPSY WITH | e | 6:50 PM | | procedure are in the | | MICROSCOPE | | PDT | | results section. | + +--------+ + + + | INCISION AND | Routin | 06/20/2018 | | Results for this | | DRAINAGE OF DEEP | e | 6:50 PM | | procedure are in the | | ABSCESS OF SOFT | | PDT | | results section. | | TISSUES OF NECK | | | | | + +--------+ + + + | CULTURE, WOUND DEEP | Routin | 06/20/2018 | | Results for this | | W/ ANAEROBE | e | 4:39 PM | | procedure are in the | | | | PDT | | results section. | + +--------+ + + + | SURGICAL PATHOLOGY | Routin | 06/20/2018 | | Results for this | | | e | 4:17 PM | | procedure are in the | | | | PDT | | results section. 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 ([facility]) | | | | Surgic | PDT | Neoplasm of | | | | al | | uncertain behavior | | | | | | of neck Pharyngeal | | | | | | dysphagia Dysphonia | | + +--------+ + + + | MODIFIED RADICAL | Electi | 06/20/2018 | Malignant neoplasm | | | NECK DISSECTION | ve | 3:46 PM | of glottis ([facility]) | | | | Surgic | PDT | Neoplasm of | | | | al | | uncertain behavior | | | | | | of neck Pharyngeal | | | | | | dysphagia Dysphonia | | + +--------+ + + + | DIRECT MICRO | Electi | 06/20/2018 | Malignant neoplasm | | | LARYNGOSCOPY W/CO2 | ve | 3:46 PM | of glottis ([facility]) | | | LASER, | Surgic | PDT | Neoplasm of | | | BIOPSY/EXCISION, | al | | uncertain behavior | | | SUSPENSION, | | | of neck Pharyngeal | | | INJECTION | | | dysphagia Dysphonia | | + +--------+ + + + | INTRAPROCEDURE | Routin | 06/20/2018 | | Results for this | | IMAGING | e | 2:37 PM | | procedure are in the | | | | PDT | | results section. | + +--------+ + + + | CARDIOLOGY | | 06/20/2018 | | Results for this | | | | 12:00 AM | | procedure are in the | | | | PDT | | results section. | + +--------+ + + + documented in this encounter Results INCISION AND DRAINAGE OF DEEP ABSCESS OF SOFT TISSUES OF NECK (06/20/2018 6:50 PM PDT) + + + | Narrative | Performed At | + + + | Pasquale Moscoso MD 06/22/2018 2:42 PM PATIENT NAME: | | | Ronni Chowdhury MR#: [id number] : 1970 Date: 06/20/2018 | | | Attending Surgeon: Pasquale Moscoso M.D. Keyboarding Clerk(s): | | | Augustine Leal MD; Lyndsey Chatman MD Preoperative Diagnosis(es): | | | Malignant neoplasm of glottis, neck mass, pharyngeal dysphagia, | | | dysphonia Postoperative Diagnosis(es): Malignant neoplasm of | | | glottis, neck abscess, pharyngeal dysphagia, dysphonia | | | Procedures: 1) direct microlaryngoscopy with biopsy 2) incision | | | and drainage of deep neck abscess Anesthesia: General via | | | endotracheal tube. Estimated Blood Loss: Trace. Fluids: | | | IV crystalloid. Antibiotics: Ancef Complications: None | | | Specimens: Tissue from right neoglottic pexis and anterior right | | | neck mass for permanent histopathology. Frozen section from right | | | neck mass. Cultures from right neck abscess pocket. | | | Indications: Ronni Chowdhury is a 47 y.o. 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 He has been seen | | | in the office and found to have erythema of the skin with tenderness | | | in this region that is firm. A CT scan demonstrated what looked | | | most like necrotic lymphadenopathy in the anterior neck adjacent to | | | the thyroid gland and within the strap musculature. A fine-needle | | | aspiration biopsy did not demonstrate malignancy. A PET CT scan | | | did demonstrate marked FDG uptake in this region. I have | | | recommended direct microlaryngoscopy with evaluation of the primary | | | tumor site and pexis as well as limited neck dissection of the right | | | neck mass for presumed malignancy. The risks and benefits were | | | explained preoperatively, and informed consent for the procedure was | | | obtained. Findings: The neoglottis appears extremely well | | | healed. No specifically worrisome lesions or masses were noted. A | | | small region of what appeared to be scar tissue was biopsied just | | | inferior to the right arytenoid mound near the pexis site. The | | | right neck mass proved to be fluid-filled with a mixture of clear | | | and purulent fluid. There was significant scar but no suggestion of | | | malignancy within the pocket. Frozen section noted inflammatory | | | cells only. Procedure: The patient was brought to the operating | | | room and placed in supine position. Following induction of general | | | anesthesia, the patient was bag masked ventilated. This was easy to | | | perform. He was turned 90 degrees and prepped and draped in clean | | | fashion for laryngoscopy. Direct microlaryngoscopy was | | | performed using the Josiah laryngoscope. This was placed | | | transorally with a Storz tooth protector. He was then suspended | | | using the Lewy arm of the Mustard table. Direct laryngoscopy | | | using 0- and 30-degree telescopes of the oropharynx, hypopharynx and | | | supraglottis noted no worrisome lesions or masses and appropriate | | | healing after supracricoid partial laryngectomy His glottis and | | | subglottis was carefully inspected with the same telescopes and | | | found as noted above in the FINDINGS section. Photodocumentation | | | was obtained. Once completed with inspection, biopsies of the | | | right neoglottis were taken using the 4 mm cup forceps and 70-degree | | | telescope. Hemostasis was achieved with topical 1:100,000 | | | epinephrine. Once completed we turned our attention to the neck. | | | His neck was turned to the left and we identified the previous | | | incision line. This was injected with 10 mL of 1% lidocaine with | | | 1:100,000 epinephrine. The neck was then prepped and draped in | | | sterile fashion. The neck incision was opened from just lateral to | | | the tracheotomy tube site to the midclavicular line. Skin flaps were | | | more elevated deep to the platysma layer pain careful attention | | | to avoid entry into any mass or pocket. Once completed we dissected | | | the anterior border of the sternocleidomastoid muscle inferiorly. | | | Internal jugular vein was identified. The lateral aspect of the | | | strap muscles was identified medially. Centered within this was a | | | firm mass. We began dissecting around this firm mass expecting this | | | to be a matted mass of lymph nodes. As we continued dissection | | | superiorly there was a release of clear fluid. This was then | | | followed by purulent fluid which was cultured. The mass seemed to | | | decompress completely. Palpation then demonstrated scar but no | | | evidence of solid malignancy or lymphadenopathy. We carefully | | | dissected around the espitia of this mass medially and laterally | | | taking a small amount of sternocleidomastoid and strap muscle tissue | | | with us. Careful attention was paid to avoid injury to the internal | | | jugular vein. The mass extended deep to the strap muscles medially | | | and along the anterior border of the thyroid gland. There did not | | | appear to be any obvious invasion of the thyroid. The thickest and | | | most concerning portion of the anterior wall this mass was taken for | | | frozen section. This confirmed inflammatory cells but no evidence | | | of malignancy. We dissected around the now deflated mass that | | | appeared to be a wall of an abscess. Careful attention was paid to | | | avoid entry into the tracheotomy site medially. The mass of scar | | | containing the purulent pocket was removed and sent to pathology for | | | permanent sectioning. The wound was irrigated with several 100 mL | | | of sterile saline. A 10 mm Slade-Blas drain was placed and | | | brought out through the prior drainage incision site. We then | | | closed the skin with 3-0 Vicryl suture through the platysma. The | | | epidermis was then closed with 4-0 Biosyn in subcuticular fashion. | | | Dermabond was applied and the drain was secured with a 2-0 nylon | | | suture the skin prep results removed. Mr. Chowdhury was returned to | | | Anesthesia for awakening and extubation. He tolerated the | | | procedure extremely well. Note, Dr. Moscoso was present and | | | scrubbed for the entire procedure. Pasquale Moscoso M.D. | | | Publications Designer Laryngology and Head & Neck Surgery Tel:[phone] | | | [phone] | | + + + DIRECT LARYNGOSCOPY WITH BIOPSY WITH MICROSCOPE (06/20/2018 6:50 PM PDT) + + + | Narrative | Performed At | + + + | Pasquale Moscoso MD 06/22/2018 2:42 PM PATIENT NAME: | | | Ronni Chowdhury MR#: [id number] : 1970 Date: 06/20/2018 | | | Attending Surgeon: Pasquale Moscoso M.D. Keyboarding Clerk(s): | | | Augustine Leal MD; Lyndsey Chatman MD Preoperative Diagnosis(es): | | | Malignant neoplasm of glottis, neck mass, pharyngeal dysphagia, | | | dysphonia Postoperative Diagnosis(es): Malignant neoplasm of | | | glottis, neck abscess, pharyngeal dysphagia, dysphonia | | | Procedures: 1) direct microlaryngoscopy with biopsy 2) incision | | | and drainage of deep neck abscess Anesthesia: General via | | | endotracheal tube. Estimated Blood Loss: Trace. Fluids: | | | IV crystalloid. Antibiotics: Ancef Complications: None | | | Specimens: Tissue from right neoglottic pexis and anterior right | | | neck mass for permanent histopathology. Frozen section from right | | | neck mass. Cultures from right neck abscess pocket. | | | Indications: Ronni Chowdhury is a 47 y.o. 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 He has been seen | | | in the office and found to have erythema of the skin with tenderness | | | in this region that is firm. A CT scan demonstrated what looked | | | most like necrotic lymphadenopathy in the anterior neck adjacent to | | | the thyroid gland and within the strap musculature. A fine-needle | | | aspiration biopsy did not demonstrate malignancy. A PET CT scan | | | did demonstrate marked FDG uptake in this region. I have | | | recommended direct microlaryngoscopy with evaluation of the primary | | | tumor site and pexis as well as limited neck dissection of the right | | | neck mass for presumed malignancy. The risks and benefits were | | | explained preoperatively, and informed consent for the procedure was | | | obtained. Findings: The neoglottis appears extremely well | | | healed. No specifically worrisome lesions or masses were noted. A | | | small region of what appeared to be scar tissue was biopsied just | | | inferior to the right arytenoid mound near the pexis site. The | | | right neck mass proved to be fluid-filled with a mixture of clear | | | and purulent fluid. There was significant scar but no suggestion of | | | malignancy within the pocket. Frozen section noted inflammatory | | | cells only. Procedure: The patient was brought to the operating | | | room and placed in supine position. Following induction of general | | | anesthesia, the patient was bag masked ventilated. This was easy to | | | perform. He was turned 90 degrees and prepped and draped in clean | | | fashion for laryngoscopy. Direct microlaryngoscopy was | | | performed using the Josiah laryngoscope. This was placed | | | transorally with a Storz tooth protector. He was then suspended | | | using the Lewy arm of the Mustard table. Direct laryngoscopy | | | using 0- and 30-degree telescopes of the oropharynx, hypopharynx and | | | supraglottis noted no worrisome lesions or masses and appropriate | | | healing after supracricoid partial laryngectomy His glottis and | | | subglottis was carefully inspected with the same telescopes and | | | found as noted above in the FINDINGS section. Photodocumentation | | | was obtained. Once completed with inspection, biopsies of the | | | right neoglottis were taken using the 4 mm cup forceps and 70-degree | | | telescope. Hemostasis was achieved with topical 1:100,000 | | | epinephrine. Once completed we turned our attention to the neck. | | | His neck was turned to the left and we identified the previous | | | incision line. This was injected with 10 mL of 1% lidocaine with | | | 1:100,000 epinephrine. The neck was then prepped and draped in | | | sterile fashion. The neck incision was opened from just lateral to | | | the tracheotomy tube site to the midclavicular line. Skin flaps were | | | more elevated deep to the platysma layer pain careful attention | | | to avoid entry into any mass or pocket. Once completed we dissected | | | the anterior border of the sternocleidomastoid muscle inferiorly. | | | Internal jugular vein was identified. The lateral aspect of the | | | strap muscles was identified medially. Centered within this was a | | | firm mass. We began dissecting around this firm mass expecting this | | | to be a matted mass of lymph nodes. As we continued dissection | | | superiorly there was a release of clear fluid. This was then | | | followed by purulent fluid which was cultured. The mass seemed to | | | decompress completely. Palpation then demonstrated scar but no | | | evidence of solid malignancy or lymphadenopathy. We carefully | | | dissected around the espitia of this mass medially and laterally | | | taking a small amount of sternocleidomastoid and strap muscle tissue | | | with us. Careful attention was paid to avoid injury to the internal | | | jugular vein. The mass extended deep to the strap muscles medially | | | and along the anterior border of the thyroid gland. There did not | | | appear to be any obvious invasion of the thyroid. The thickest and | | | most concerning portion of the anterior wall this mass was taken for | | | frozen section. This confirmed inflammatory cells but no evidence | | | of malignancy. We dissected around the now deflated mass that | | | appeared to be a wall of an abscess. Careful attention was paid to | | | avoid entry into the tracheotomy site medially. The mass of scar | | | containing the purulent pocket was removed and sent to pathology for | | | permanent sectioning. The wound was irrigated with several 100 mL | | | of sterile saline. A 10 mm Slade-Blas drain was placed and | | | brought out through the prior drainage incision site. We then | | | closed the skin with 3-0 Vicryl suture through the platysma. The | | | epidermis was then closed with 4-0 Biosyn in subcuticular fashion. | | | Dermabond was applied and the drain was secured with a 2-0 nylon | | | suture the skin prep results removed. Mr. Chowdhury was returned to | | | Anesthesia for awakening and extubation. He tolerated the | | | procedure extremely well. Note, Dr. Moscoso was present and | | | scrubbed for the entire procedure. Pasquale Msocoso M.D. | | | Publications Designer Laryngology and Head & Neck Surgery Tel:[phone] | | | [phone] | | + + + CULTURE, WOUND DEEP W/ ANAEROBE (06/20/2018 4:39 PM PDT) + + | Specimen | + + | Swab - Neck | | structure (body | | structure) | + + + + + | Narrative | Performed At | + + + | Culture Report: 1+ Mixed anaerobic growth no Bacteroides | [facility] - | | fragilis Gram Stain: No squamous epithelial cells Moderate | [facility] - | | polymorphonuclear cells No organisms seen | [place] | + + + + + + + + | Performing | Address | City/State/Zipcode | Phone Number | | Organization | | | | + + + + + | [facility] | [address] | [place] [address] | | | [facility] | | | | + + + + + SURGICAL PATHOLOGY (06/20/2018 4:17 PM PDT) + + + + + + | Component | Value | Ref Range | Performed | Pathologist | | | | | At | Signature | + + + + + + | Clinical | 47 yo male, h/o T3No | | [facility] | | | History | glottic SCC, s/p | | DEPARTMENT | | | | supracricoid partial | | OF | | | | laryngectomy; now with | | PATHOLOGY | | | | abscess [DS]. | | | | + + + + + + | Final | A. Right glottis, | | [facility] | Electronically | | Pathologic | biopsy:- Invasive | | DEPARTMENT | signed by Wilfred | | Diagnosis | squamous cell carcinoma, | | OF | A MD Izzy on | | | moderately | | PATHOLOGY | 06/26/2018 at | | | differentiated with | | | 12:26 PM | | | keratinization, | | | | | | involving squamous | | | | | | mucosa with focal | | | | | | surface dysplasiaB. | | | | | | Right neck mass, frozen | | | | | | section biopsy:- | | | | | | Fibromuscular connective | | | | | | tissue with sclerotic | | | | | | changes- Negative for | | | | | | malignancyC. Right neck | | | | | | mass, incision and | | | | | | drainage:- Fibromuscular | | | | | | and fibroadipose | | | | | | connective tissue with | | | | | | abscess cavity | | | | | | containing Actinomycete | | | | | | sp. sulfur granules, | | | | | | extensive granulation | | | | | | change and dense | | | | | | fibrinopurulent | | | | | | inflammation- Specimen | | | | | | reviewed in-toto- | | | | | | Negative for malignancy | | | | | | Case seen by:Venkat | | | | | | DO Rell | | | | | | | | | | | | Pathology ResidentDavid | | | | | | MD Izzy | | | | | | | | | | | | Pathologist My | | | | | | electronic signature | | | | | | indicates that I have | | | | | | personally reviewed all | | | | | | diagnostic slides, the | | | | | | gross and/or microscopic | | | | | | portion of this report | | | | | | and formulated the final | | | | | | diagnosis. | | | | + + + + + + | Gross | Received are three | | [facility] | | | Description | specimens fresh labeled | | DEPARTMENT | | | | with the patient's name | | OF | | | | (initials JK) and | | PATHOLOGY | | | | medical record number | | | | | | [id number]. Throat, | | | | | | Right Glottis: Received | | | | | | labeled "right | | | | | | glottis-1" are three | | | | | | bentley-brown soft tissue | | | | | | fragments (0.6 x 0.3 x | | | | | | 0.2 cm in aggregate), | | | | | | submitted entirely in | | | | | | filter paper in A1.B. | | | | | | Neck, Right neck mass | | | | | | R/O carcinoma: Received | | | | | | labeled "right neck mass | | | | | | R/O carcinoma-2" is a | | | | | | 1.0 x 1.0 x 0.4 cm | | | | | | bentley-pink tissue fragment | | | | | | with focal cautery, | | | | | | previously bisected and | | | | | | entirely submitted for | | | | | | frozen section analysis, | | | | | | now resubmitted | | | | | | entirely for permanents | | | | | | in B1.C. Throat, Right | | | | | | neck mass: Received | | | | | | labeled "right neck | | | | | | mass-3" is a 4.6 x 3.2 x | | | | | | 2.1 cm aggregate of | | | | | | irregular bentley-yellow | | | | | | soft tissue fragments, | | | | | | submitted entirely in | | | | | | [id number].TJ | | | | + + + + + + | Intraoperat | Frozen section | | [facility] | | | anika use | diagnosis: B1. Neck. | | DEPARTMENT | | | only - | Right neck mass R/O | | OF | | | Final | carcinoma: Negative for | | PATHOLOGY | | | diagnosis | carcinomaFrozen section | | | | | listed | pathologist(s): | | | | | separately | Shine Arvizu MD, | | | | | | PhD | | | | | | | | | | | | Pathologist | | | | + + + + + + | Ancillary | Analyte specific | | [facility] | | | Information | reagents are used in | | DEPARTMENT | | | | many laboratory tests | | OF | | | | necessary for standard | | PATHOLOGY | | | | medical care. This test | | | | | | was developed and its | | | | | | performance | | | | | | characteristics | | | | | | determined by [facility] | | | | | | laboratories. It has | | | | | | not been cleared or | | | | | | approved by the US Food | | | | | | and Drug Administration | | | | | | (FDA). FDA does not | | | | | | require this test to go | | | | | | through premarket FDA | | | | | | review. This test is | | | | | | used for clinical | | | | | | purposes. It should not | | | | | | be regarded as | | | | | | investigational or for | | | | | | research. This | | | | | | laboratory is certified | | | | | | under the Clinical | | | | | | Laboratory Improvement | | | | | | Amendments (CLIA) as | | | | | | qualified to perform | | | | | | high complexity clinical | | | | | | laboratory testing. | | | | + + + + + + + + | Specimen | + + | Tissue - Structure | | of anterior portion | | of neck (body | | structure) | + + | Tissue - Neck | | structure (body | | structure) | + + | Tissue - Structure | | of anterior portion | | of neck (body | | structure) | + + + + + + + | Performing | Address | City/State/Zipcode | Phone Number | | Organization | | | | + + + + + | [facility] | [address] | [place] [address] | | | PATHOLOGY | [address] | | | + + + + + INTRAPROCEDURE IMAGING (06/20/2018 2:37 PM PDT) + + | Specimen | + + | | + + + + + | Narrative | Performed At | + + + | See admission or procedure notes for details of any intraprocedure | | | images obtained. | | + + + CARDIOLOGY (06/20/2018 12:00 AM PDT) + + + | Narrative | Performed At | + + + | | | + + + documented in this encounter Visit Diagnoses + + | Diagnosis | + + | Malignant neoplasm of glottis (HCC) Malignant neoplasm of glottis | + + | Neoplasm of uncertain behavior of neck | + + | Pharyngeal dysphagia Dysphagia, pharyngeal phase | + + | Dysphonia | + + documented in this encounter Administered Medications + +--------+ + +------+------+ | Medication Order | MAR | Action | Dose | Rate | Site | | | Action | Date | | | | + +--------+ + +------+------+ | acetaminophen (TYLENOL) tablet | Given | 06/21/20 | 1,000 mg | | | | 1,000 mg 1,000 mg, oral, EVERY 6 | | 18 9:22 | | | | | HOURS, First dose on Tue06/20/18 | | AM PDT | | | | | at 2200, Until Discontinued | | | | | | + +--------+ + +------+------+ +-------+ + +---+---+ | Given | 06/21/20 | 1,000 mg | | | | | 18 3:41 | | | | | | AM PDT | | | | +-------+ + +---+---+ | Given | 06/20/20 | 1,000 mg | | | | | 18 10:09 | | | | | | PM PDT | | | | +-------+ + +---+---+ +---+---+ | | | +---+---+ + +-------+ +--------+---+---+ | ciprofloxacin HCl (CIPRO) | Given | 06/21/20 | 500 mg | | | | tablet 500 mg 500 mg, oral, | | 18 9:22 | | | | | TWICE DAILY, 14 doses, First dose | | AM PDT | | | | | on Tue06/21/18 at 0800, Last dose | | | | | | | on Tue06/27/18 at 2100 | | | | | | + +-------+ +--------+---+---+ +---+---+ | | | +---+---+ + +-------+ +------+---+--------+ | EPINEPHrine (ADRENALIN) | Given | 06/20/20 | 1 mL | | Airway | | injection INTRAPROCEDURE PRN, | | 18 4:51 | | | | | Starting Tue06/20/18 at 1651, | | PM PDT | | | | | Until Tue06/20/18 at 1738 | | | | | | + +-------+ +------+---+--------+ +---+---+ | | | +---+---+ + +-------+ +--------+---+---+ | gabapentin (NEURONTIN) capsule | Given | 06/21/20 | 300 mg | | | | 300 mg 300 mg, oral, THREE TIMES | | 18 9:22 | | | | | DAILY, First dose on Tue06/20/18 | | AM PDT | | | | | at 2200, Until Discontinued | | | | | | + +-------+ +--------+---+---+ +-------+ +--------+---+---+ | Given | 06/20/20 | 300 mg | | | | | 18 10:09 | | | | | | PM PDT | | | | +-------+ +--------+---+---+ +---+---+ | | | +---+---+ + +-------+ +--------+---+---+ | HYDROmorphone (DILAUDID) | Given | 06/20/20 | 0.2 mg | | | | injection 0.2-0.6 mg 0.2-0.6 mg, | | 18 10:09 | | | | | intravenous, EVERY 2 HOURS | | PM PDT | | | | | NEEDED, Starting Tue06/20/18 at | | | | | | | 1741, Until Tue06/21/18 at 1655, | | | | | | | severe pain | | | | | | + +-------+ +--------+---+---+ +---+---+ | | | +---+---+ + + + +-------+-------+---+ | lactated Ringers IV 100 mL/hr, | Rate/Dos | 06/21/20 | 100 | 100 | | | intravenous, CONTINUOUS, | e Verify | 18 9:22 | mL/hr | mL/hr | | | Starting Tue06/20/18 at 1915, | | AM PDT | | | | | Until Tue06/21/18 at 1655 | | | | | | + + + +-------+-------+---+ +---------+ +-------+-------+---+ | New Bag | 06/20/20 | 100 | 100 | | | | 18 11:00 | mL/hr | mL/hr | | | | PM PDT | | | | +---------+ +-------+-------+---+ +---+---+ | | | +---+---+ + +-------+ +-------+---+------+ | lidocaine-EPINEPHrine | Given | 06/20/20 | 10 mL | | Neck | | (XYLOCAINE WITH EPINEPHRINE) 1 | | 18 4:30 | | | | | %-1:100,000 injection | | PM PDT | | | | | INTRAPROCEDURE PRN, Starting | | | | | | | 06/20/18 at 1630, Until Tue06/20/18 | | | | | | | at 1738 | | | | | | + +-------+ +-------+---+------+ +---+---+ | | | +---+---+ + +-------+ +-------+---+---+ | oxyCODONE (immediate release) | Given | 06/21/20 | 10 mg | | | | (ROXICODONE) tablet 5-15 mg 5-15 | | 18 9:22 | | | | | mg, oral, EVERY 4 HOURS | | AM PDT | | | | | NEEDED, Starting Tue06/20/18 at | | | | | | | 1740, Until Tue06/21/18 at 1655, | | | | | | | moderate pain | | | | | | + +-------+ +-------+---+---+ +-------+ +-------+---+---+ | Given | 06/21/20 | 10 mg | | | | | 18 4:39 | | | | | | AM PDT | | | | +-------+ +-------+---+---+ | Given | 06/20/20 | 10 mg | | | | | 18 10:59 | | | | | | PM PDT | | | | +-------+ +-------+---+---+ +---+---+ | | | +---+---+ + +-------+ + +---+---+ | senna-docusate (SENOKOT S) | Given | 06/21/20 | 1 tablet | | | | 8.6-50 mg 1 tablet 1 tablet, | | 18 9:22 | | | | | oral, TWICE DAILY, First dose on | | AM PDT | | | | | 06/20/18 at 2100, Until | | | | | | | Discontinued | | | | | | + +-------+ + +---+---+ +-------+ + +---+---+ | Given | 06/20/20 | 1 tablet | | | | | 18 10:09 | | | | | | PM PDT | | | | +-------+ + +---+---+ +---+---+ | | | +---+---+ documented in this encounter
--- OUTSIDE RECORDS SUMMARY | ~2019-10-09 | XMS | Encounter Summary ---
Demographics + + + | Address | [address] | | | [place] [address] | + + + | Home Phone | | + + + | Preferred Language | Unknown | + + + | Marital Status | | + + + | Anglican Affiliation | Unknown | + + + [...] Team Providers + +------+ + | Care Pigment Pusher Name | Role | Phone | + [...] | +--------+ + + + + | 08/10/ | Hospital | [facility] | Naida Burnette | Malignant neoplasm | | 2018 | Encounter | MED CTR RADIATION | MD Brad [address] | of glottis (HCC) | | | | ONCOLOGY CLINIC [address] | [place] [employer], [place] | (Primary Dx) | | | | [address] | [address] | | | | | [place] [address] | | | | | | [phone] | | | +--------+ + + + [...] + + + | Blood Pressure | 140/92 | 08/10/2018 10:26 AM | | | | | PDT | | + + + + + | Pulse | 95 | 08/10/2018 10:26 AM | | | | | PDT | | + + + + + | Temperature | 35.7 C (96.3 F) | 08/10/2018 10:26 AM | | | | | PDT | | + + + + + | Respiratory Rate | 16 | 08/10/2018 10:26 AM | | | | | PDT | | + + + + + | Oxygen Saturation | 100% | 08/10/2018 10:26 AM | | | | | PDT | | + + + + + | Inhaled Oxygen | - | - | | | Concentration | | | | + + + + + | Weight | 98.6 kg (217 lb 6 | 08/10/2018 10:26 AM | | | | oz) | PDT | | + + + + + | Height | - | - | | + + + + + | Body Mass Index | 27.9 | 07/19/2018 12:34 PM | | | [...] | Take 1 tab 60 min | 30 | 0 | 08/08/20 | | | 1 mg tablet | [...] encounter Progress Notes Naida Burnette MD - 08/10/2018 10:29 AM PDT Radiation Oncology Weekly On Treatment Note Diagnosis: ICD-10-CM ICD-9-CM 1. 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 citalopram (CELEXA) 10 mg tablet Take 1 tablet by mouth Daily. 0 gabapentin (NEURONTIN) 300 mg capsule Take by mouth 3 times daily as needed. LORazepam (ATIVAN) 1 mg tablet Take 1 tab 60 min prior to radiation, if needed may take a second tab. 30 tablet 0 oxyCODONE (ROXICODONE) 5 mg tablet [...] facility-administered medications on file prior to encounter. Pain assessment: Location: [place] Pain Level: PAIN PROG PAIN LEVEL: 3 Pain Quality: Stable Current pain regimen: oxycodone 5 mg twice daily Wt Readings from Last 3 Encounters: 08/10/18 98.6 kg (217 lb 6 oz) 08/03/18 98.8 kg (217 lb 13 oz) 07/19/18 97.4 kg (214 lb 11.7 oz) Vitals: 08/10/18 1026 BP: (!) 140/92 Pulse: 95 Resp: 16 Temp: 35.7 C (96.3 F) TempSrc: Temporal SpO2: 100% Weight: 98.6 kg (217 lb 6 oz) Physical Exam Constitutional: He appears well-developed and well-nourished. HENT: Mouth/Throat: Mucous membranes are normal. Neurological: He is alert. Skin: No rash noted. No erythema. Psychiatric: He has a normal mood and affect. Physician Assessment: Ronni continues to have some difficulty with claustrophobia in the treatment position. He continues to take Ativan. With this he is able to tolerate treatment. Reports that it is becoming easier. Notes mild dry mouth and he has been using mclg-kij-xpmzklu biotein produc ts with good effect. His weight is stable. Able to eat normally. Mild fatigue. Stable ne ck pain, since surgery. Toxicities reviewed in nursing note. 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
--- OUTSIDE RECORDS SUMMARY | ~2019-10-09 | XMS | Encounter Summary ---
Demographics + + + | Address | [address] | | | [place] [address] | + + + | Home Phone | | + + + | Preferred Language | Unknown | + + + | Marital Status | | + + + | Rastafarian Affiliation | NRP | + + + | Race | White | + + + | Ethnic Group | Not or | + + + Author + + + | Author | [facility] | + + + | Organization | [facility] | + + + | Address | Unknown | + + + | Phone | Unavailable | + + + Support + + + + + | Name | Relationship | Address | Phone | + + + + + | Cecile Chowdhury | ECON | [address] | | | | | [place] [address] | | + + + + + Care Team Providers + +------+ + | Care Second Crusher Name | Role | Phone | + [...] Closed | | Otolaryngolog | Diagnoses | Danyel, | Blanka, | | | | y | Laryngeal | Javier Gonzalez MD | Pasquale Little MD | | | | | cancer ([facility]) | [address] | [address] [facility] | | | | | Procedures | [place] | [address] | | | | | CONSULT TO | [facility] [place] | [place], | | | | | ENT GENERAL | [address] | [place] | | | | | | Phone: | [address] | | | | | | [phone] | Phone: | | | | | | Fax: | [phone] | | | | | | [phone] | Fax: | | | | | | | [phone] | +--------+--------+ + + + + Encounter Details +--------+ + + + + | Date | Type | Department | Care Team | Description | +--------+ + + + + | 12/26/ | Germ Drier | Hematology/Medical | Javier Montaño, | Laryngeal cancer | | 2018 | | Oncology at [place] | [address] | (HCC) (Primary Dx) | | | | for Health & Healing | [facility] [place] | | | | | [address] | [address] | | | | | Mailcode: [place] | [phone] | | | | | for Health and | | | | | | Healing, [address] | | | | | | [place], [place] | | | | | | [address] | | | | | | [phone] | | | +--------+ + + + [...] Rd | | | | | | [place], [place] | | | | | | [address] | | | | | | [phone] | | | | | | | | +--------+---------+ + + + documented as of this encounter Visit Diagnoses + + | Diagnosis | + + | 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
--- OUTSIDE RECORDS SUMMARY | ~2019-10-09 | XMS | Encounter Summary ---
Demographics + + + | Address | [address] | | | [place] [address] | + + + | Home Phone | | + + + | Preferred Language | Unknown | + + + | Marital Status | | + + + | Confucianist Affiliation | NRP | + + + | Race | White | + + + | Ethnic Group | Not or | + + + Author + + + | Author | [facility] | + + + | Organization | [facility] | + + + | Address | Unknown | + + + | Phone | Unavailable | + + + Support + + + + + | Name | Relationship | Address | Phone | + + + + + | Cecile Chowdhury | ECON | [address] | | | | | [place] [address] | | + + + + + Care Team Providers + +------+ + | Care Court Magistrate Name | Role | Phone | + +------+ + | Daniel Cannon MD | PCP | | + +------+ + Reason for Visit + + + | Reason | Comments | + + + | Lab Results | | + + + Encounter Details +--------+ + + + + | Date | Type | Department | Care Team | Description | +--------+ + + + + | 06/29/ | Telephone | Otolaryngology | Pasquale Moscoso | Lab Results | | 2018 | | Laryngology Services | MD [place] [address] [facility] | | | | | at [facility] [address] | | | | | [place], | [place], [place] | | | | | [place] [address] | [address] | | | | | [phone] | [phone] | | | | | | | [...] Description | +--------+---------+ + + + | 06/03/ | Office | Otolaryngology | Pasquale Moscoso | | | 2020 | Visit | | MD [place] [address] | | | | | | [address] | | | | | | [place] | | | | | | [address] | | | | | | [phone] | | | | | | | | +--------+---------+ + + + documented as of this encounter Visit Diagnoses Not on filedocumented in this encounter"
--- OUTSIDE RECORDS SUMMARY | ~2019-10-09 | XMS | Encounter Summary ---
Demographics + + + | Address | [address] | | | [place] [address] | + + + | Home Phone | | + + + | Preferred Language | Unknown | + + + | Marital Status | | + + + | Baptism Affiliation | NRP | + + + | Race | White | + + + | Ethnic Group | Not or | + + + Author + + + | Author | [facility] | + + + | Organization | [facility] | + + + | Address | Unknown | + + + | Phone | Unavailable | + + + Support + + + + + | Name | Relationship | Address | Phone | + + + + + | Cecile Chowdhury | ECON | [address] | | | | | [place] [address] | | + + + + + Care Team Providers + +------+ + | Care Wood Casket Assembler Name | Role | Phone | [...] Mailcode: | | | | | | [place], [place] | [address] | | | | | | [address] | [facility] | | | | | | Phone: | and Healing, | | | | | | [phone] | [address], | | | | | | Fax: | 15th Floor | | | | | | [phone] | [place], [place] | | | | | | | [address] | | | | | | | Phone: | | | | | | | [phone] | | | | | | | Fax: | | | | | | | [phone] | +--------+--------+ + + + + Encounter Details +--------+ + + + + | Date | Type | Department | Care Team | Description | +--------+ + + + + | 03/15/ | Diagnostic | Otolaryngology | Steven Vidal, | | | 2018 | Visit | Speech Therapy | TEXTILE SCREEN PRINTER [address] | | | | | Services at [facility] | [facility] | | | | | [address] | [place] [address] | | | | | Loop Mailcode: [address] | [phone] | | | | | Physician's | | | | | | [place], | | | | | | [place] [address] | | | | | | [phone] | | | +--------+ + + + [...] of this encounter Progress Notes Steven Vidal, TEXTILE SCREEN PRINTER - 03/15/2018 11:00 AM PDTFormatting of this note might be different fro m the original. Clinic: [facility] Referring Physician: [...] chronic pain (close follow up with his [place] [facility] doctor). The patient had stable respiratory status on 3 Liters of supplement O2 (provided at [facility] [place]). 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 Functional Oral Intake Scale (FOIS) TUBE DEPENDENT [...] see in conjunction PRN. Steven Vidal, PhD, CCC-TEXTILE SCREEN PRINTER [facility] Dept. of Otolaryngology, - [address] [place] [address] documented in this en counter Plan of Treatment +--------+---------+ + + + | Date | Type | Specialty | Care Team | Description | +--------+---------+ + + + | 03/19/ | Office | Otolaryngology | Pasquale Moscoso | | | 2019 | Visit | | MD Sidney [address] | | | | | | [address] | | | | | | [place], [place] | | | | | | [address] | | | | | | [phone] | | | | | | | | +--------+---------+ + + + documented as of this encounter Procedures + +--------+ + + + | Procedure Name | Priori | Date/Time | Associated Diagnosis | Comments | | | ty | | | | + +--------+ + + + | AZ ORAL FUNCTION | Routin | 03/15/2018 | [...]
--- OUTSIDE RECORDS SUMMARY | ~2019-10-09 | XMS | Encounter Summary ---
Demographics + + + | Address | [address] | | | [place] [address] | + + + | Home Phone | | + + + | Preferred Language | Unknown | + + + | Marital Status | | + + + | Buddhism Affiliation | NRP | + + + | Race | White | + + + | Ethnic Group | Not or | + + + Author + + + | Author | [facility] | + + + | Organization | [facility] | + + + | Address | Unknown | + + + | Phone | Unavailable | + + + Support + + + + + | Name | Relationship | Address | Phone | + + + + + | Cecile Chowdhury | ECON | [address] | | | | | [place] [address] | | + + + + + Care Team Providers + +------+ + | Care Irrigating Pump Operator Name | Role | Phone | + +------+ + | Daniel Cannon MD | PCP | | + +------+ + Encounter Details +--------+ + + + + | Date | Type | Department | Care Team | Description | +--------+ + + + + | 06/21/ | Pharmacy | Outpatient Retail | | | | 2017 | Visit | [facility] | | | | | | [address] | | | | | | Loop [place], [place] | | | | | | [address] | | | | | | [phone] | | | +--------+ + + + [...] | Visit | | MD Sidney [address] [facility] | | | | | | [address] | | | | | | [place], [place] | | | | | | [address] | | | | | | [phone] | | | | | | | | +--------+---------+ + + + documented as of this encounter Visit Diagnoses Not on filedocumented in this encounter"
--- OUTSIDE RECORDS SUMMARY | ~2019-10-09 | XMS | Encounter Summary ---
Demographics + + + | Address | [address] | | | [place] [address] | + + + | Home Phone [...] + + + | Author | [facility] | + + + | Organization | [facility] | + + + | Address | Unknown | + + + | Phone | Unavailable | + + + Support + + + + + | Name | Relationship | Address | Phone | + + + + + | Cecile Chowdhury | ECON | [address] | | | | | [place] [address] | | + + + + + Care Team Providers + +------+ + | Care Chart Collector Name | Role | Phone | + +------+ + | Daniel Cannon MD | PCP | | + +------+ + Encounter Details +--------+ + + + + | Date | Type | Department | Care Team | Description | +--------+ + + + + | 12/26/ | Document-Sc | Hematology/Medical | Javier Montaño, | | | 2018 | anned | Oncology at [place] | [address] | | | | | for Health & Healing | [facility] [place] | | | | | [address] | [address] | | | | | Mailcode: [place] | [phone] | | | | | for Health and | | | | | | Healing, [address] | | | | | | [place], [place] | | | | | | [address] | | | | | | [phone] | | | +--------+ + + + [...] 2020 | Visit | | MD Sidney [address] [facility] | | | | | | [address] | | | | | | [place], [place] | | | | | | [address] | | | | | | [phone] | | | | | | | | +--------+---------+ + + + documented as of this encounter Procedures + +--------+ + + + | Procedure Name | Priori | Date/Time | Associated Diagnosis | Comments | | | ty | | | | + +--------+ + + + | RADIOLOGY | | 12/15/2017 | | Results for this | | | | 12:00 AM | | procedure are in the | | | | PST | | results section. | + +--------+ + + + | RADIOLOGY | | 12/15/2017 | | Results for this | | | | 12:00 AM | | procedure are in the | | | | PST | | results section. | + +--------+ + + + | PATHOLOGY | | 11/29/2017 | | Results for this | | | | 12:00 AM | | procedure are in the | | | | PST | | results section. | + +--------+ + + + documented in this encounter Results RADIOLOGY (12/15/2017 12:00 AM PST) + + + | Narrative | Performed At | + + + | | | + + + RADIOLOGY (12/15/2017 12:00 AM PST) + + + | Narrative | Performed At | + + + | | | + + + PATHOLOGY (11/29/2017 12:00 AM PST) + + + | Narrative | Performed At | + + + | | | + + + documented in this encounter Visit Diagnoses Not on filedocumented in this encounter"
--- OUTSIDE RECORDS SUMMARY | ~2019-10-09 | XMS | Encounter Summary ---
Demographics + + + | Address | [address] | | | [place] [address] | + + + | Home Phone | | + + + | Preferred Language | Unknown | + + + | Marital Status | | + + + | Denominational Affiliation | Unknown | + + + | Race | Unknown | + + + | Ethnic Group | Unknown | + + + Author + + + | Author | [facility] | | | and [place] | + + + | Organization | [facility] | | [...] Team Providers + +------+ + | Care Film Reproducer Name | Role | Phone | + +------+ + | Daniel Cannon MD | PCP | | + +------+ + Reason for Visit + + + | Reason | Comments | + + + | Nutrition Education | | + + + Evaluate & Treat (Routine) +--------+ + + + + + | Status | Reason | Specialty | Diagnoses / | Referred By | Referred To | | | | | Procedures | Contact | Contact | +--------+ + + + + + | Closed | Specialty | Nutrition | Diagnoses | Riegert, | [facility] | | | Services | | Malignant | Naida M, | Nutrition | | | Required | | neoplasm of | MD [address] | [address] | | | | | glottis | [address] | [place] | | | | | ([facility]) | [place], | [place], | | | | | | [place] [address] | [place] [address] | | | | | | Phone: | Phone: | | | | | | [phone] | [phone] | | | | | | Fax: | Fax: | | | | | | [phone] | [phone] | +--------+ + + + + + Encounter Details +--------+ + + + + | Date | Type | Department | Care Team | Description | +--------+ + + + + | 08/17/ | Hospital | [facility] | Naida Burnette | Malignant neoplasm | | 2018 | Encounter | MED CTR NUTRITION | MD Brad [address] | of glottis (HCC) | | | | SERVICES [address] [place], [place] | | | | | [place], | [address] | | | | | [place] [address] | | | | | | [phone] | Earlene Whitlock, | | | | [...] encounter Progress Notes Earlene Whitlock RDN - 08/17/2018 12:28 PM PDTFormatting of this note might be different f rom the original. 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 He is horse but otherwise having no problems swallowing, taste alterations or weight loss. He dri nks a CIB every day for breakfast. Provided and discussed smoothie recipes, high protein hi gh calorie beverage recipes and how to make the most out of each bite. UBW [phone]# OBJECTIVE: Diet: general Wt Readings from Last 3 Encounters: 08/17/18 97.9 kg (215 lb 13.3 oz) 08/10/18 98.6 kg (217 lb 6 oz) 08/03/18 98.8 kg (217 lb 13 oz) Ht Readings from Last 1 Encounters: 07/19/18 1.88 m (6' 2.02") Estimated needs (wt. 80 kg) 5364-8358 kcals/day 80-96 gm pro/day Medications: reviewed ASSESSMENT/PLAN: Nutrition Diagnosis: Potential for swallowing problems related to radiation tx for maligna nt neoplasm of glottis as evidenced by treatment plan and area being treated. Interventions: 1. Provided and discussed high calorie high protein beverages and smoothie recipes 2. Provided and discussed ways to make each bite count Nutrition Goals: 1. To meet nutritional needs 2. Minimize weight loss Monitor: 1. Ability to take adequate po 2. Follow up in rad onc Time spent: 30 minutes Thank you for the referral, Earlene Whitlock RDN 08/17/2018 12:29 documented in this encounter Plan of Treatment +--------+ + + + + | Date | Type | Specialty | Care Team | Description | +--------+ + + + + | 01/01/ | Appointment | Radiation Oncology | Naida Burnette | | | 2019 | | | MD Edi [place] [address] | | | | | | [address] [place] | | | | | | [address] | | | | | | | | +--------+ + + + + + + +--------+ + + | Name | Type | Priori | Associated Diagnoses | Order Schedule | | | | ty | | | + + +--------+ + + | AMB Referral to [facility] | Outpatient | Routin | Malignant neoplasm | Ordered: 08/08/2018 | | Nutrition Services | Referral | e | of glottis (HCC) | | + + +--------+ + + documented as of this encounter Visit Diagnoses + + | Diagnosis | + + | Malignant neoplasm of glottis (HCC) Malignant neoplasm of glottis | + + documented in this encounter
--- OUTSIDE RECORDS SUMMARY | ~2019-10-09 | XMS | Encounter Summary ---
Demographics + + + | Address | [address] | | | [place] [address] | + + + | Home Phone | | + + + | Preferred Language | Unknown | + + + | Marital Status | | + + + | Christian Affiliation | Unknown | + + + | Race | Unknown | + + + | Ethnic Group | Unknown | + + + Author + + + | Author | [facility] | | | and [place] | + + + | Organization | [facility] | | | [...] Team Providers + +------+ + | Care Wastewater Treatment Operator Name | Role | Phone | [...] | Specialty | Nutrition | Diagnoses | Vasile | [facility] | | | Services | | Malignant | Naida [place], | Nutrition | | | Required | | neoplasm of | [address] | [address] | | | | | [address]ottis | [address] | [address] [place] | | | | | (HCC) | [place], | [place], | | | | | | [place] [address] | [place] [address] | | | | | | Phone: | Phone: | | | | | | [phone] | [phone] | | | | | | Fax: | Fax: | | | | | | [phone] | [phone] | +--------+ + + + + + Encounter Details +--------+ + + + + | Date | Type | Department | Care Team | Description | +--------+ + + + + | 08/08/ | Orders Only | [facility] | Naida Burnette | Malignant neoplasm | | 2018 | | MED CTR RADIATION | MD Brad [address] | of glottis (HCC) | | | | ONCOLOGY CLINIC [address] | [address] [place], [place] | (Primary Dx) | | | | [place] | [address] | | | | | [place] [address] | | | | | | [phone] | | | +--------+ + + + [...] | | | | | | [place], [place] | | | | | | [address] | | | | | | | | +--------+ + + + + + + +--------+ + + | Name | Type | Priori | Associated Diagnoses | Order Schedule | | | | ty | | | + + +--------+ + + | AMB Referral to [facility] | Outpatient | Routin | Malignant neoplasm | Ordered: 08/08/2018 | | Nutrition Services | Referral | e | of yeyo (HCC) | | + + +--------+ + + documented as of this encounter Visit Diagnoses + + | Diagnosis | + + | 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
--- OUTSIDE RECORDS SUMMARY | ~2019-10-09 | XMS | Encounter Summary ---
Demographics + + + | Address | [address] | | | [place] [address] | + + + | Home Phone | | + + + | Preferred Language | Unknown | + + + | Marital Status | | + + + | Voodoo Affiliation | Unknown | + + + [...] Team Providers + +------+ + | Care Finish Molder Name | Role | Phone | [...] | cancer (HCC) | [address] | [place], | | | | | Procedures | [address] | [place] [address] | | | | | [place] | [place], | Phone: | | | | | Treatment | [place] [address] | [phone] | | | | | Plan Complex | Phone: | Fax: | | | | | | [phone] | [phone] | | | | | | Fax: | | | | | | | [phone] | | +--------+--------+ + + + + Reason for Visit +---------+ + | Reason | Comments | +---------+ + | Consult | laryngeal ca | +---------+ + Evaluate & Treat (Routine) +--------+ + + + + + | Status | Reason | Specialty | Diagnoses / | Referred By | Referred To | | | | | Procedures | Contact | Contact | +--------+ + + + + + | Closed | Specialty | Radiation | Diagnoses | Blanka, | Vasile | | | Services | Oncology | SCC glottis | Pasquale Little, | Naida Salinas MD | | | Required | | Procedures | [address] | [address] | | | | | [place] OFFICE | Jordan June | [address] | | | | | OUTPATIENT | [place] | [place], | | | | | [address] | [place], [place] | [place] [address] | | | | | MINUTES | [address] | Phone: | | | | | | Phone: | [phone] | | | | | | [phone] | Fax: | | | | | | Fax: | [phone] | | | | | | [phone] | | +--------+ + + + + + Encounter Details +--------+ + + + + | Date | Type | Department | Care Team | Description | +--------+ + + + + | 07/19/ | Hospital | [facility] | Naida Burnette | Larynx cancer (HCC) | | 2018 | Encounter | [facility] | MD Brad [address] | (Primary Dx); | | | | ONCOLOGY CLINIC [address] | [facility] [place] | Malignant neoplasm | | | | [address] | [address] | of glottis (HCC) | | | | [place] [address] | | | | | | [phone] | | | +--------+ + + + [...] + + + | Blood Pressure | 145/92 | 07/19/2018 12:34 PM | | | | | PDT | | + + + + + | Pulse | 93 | 07/19/2018 12:34 PM | | | | | PDT | | + + + + + | Temperature | 37.2 C (99 F) | 07/19/2018 12:34 PM | | | | | PDT | | + + + + + | Respiratory Rate | 16 | 07/19/2018 12:34 PM | | | | | PDT | | + + + + + | Oxygen Saturation | 97% | 07/19/2018 12:34 PM | | | | | PDT | | + + + + + | Inhaled Oxygen | - | - | | | Concentration | | | | + + + + + | Weight | 97.4 kg (214 lb 11.7 | 07/19/2018 12:34 PM | | | | oz) | PDT | | + + + + + | Height | 188 cm (6' 2.02") | 07/19/2018 12:34 PM | | | [...] | | | | | | | Mable 1 | | | | | | [...] encounter Progress Notes Naida Burnette MD - 07/19/2018 12:39 PM PDT Radiation Oncology Consultation Chief Complaint: Ronni Chowdhury is a 47 y.o. male seen today as a new patient at the request of Dr. Pasquale Moscoso for evaluation and consideration of radiotherapeutic treatment, for the di agnosis of: ICD-10-CM ICD-9-CM 1. 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 Conservative management with voice rest and PPI was tried. Hoarse voice persisted into October and exam described persistent thickening of the true vocal cord. Associated presenting symptoms include sore throat. He did not have issues with swallowing. History notable for significant tobacco an d alcohol use, ongoing. -Biopsy on 11/29/17 demonstrated invasive squamous cell carcinoma, moderately differentiated and keratinizing, p16 negative. Fluoroscopic exam by Dr. Castillo on 12/13/17 described limi charo movement of the right vocal cord with a fungating lesion on the superior surface of the right true vocal cord. He also noted moderate thickening of the posterior arytenoid and int erarytenoid mucosa. -CT of the neck with contrast performed on 12/15/17 at [facility] noted fullness in the retropharyngeal soft tissue, without discrete area of enhancement. Fullness in the r ight vocal cord. No enlarged or abnormal appearing cervical lymph nodes. Visualized portio n of the lungs clear. -Referred to Dr. Moscoso at [facility], who ultimately performed a supracricoid partial larynge ctomy sparing left arytenoid and right modified radical neck dissection on 01/16/18. 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 -He was recovering well from many months after surgery. Tracheostomy closed and PEG tube r emoved. Postoperative he was still unable to quit smoking and drinking daily. - In mid-May he developed an anterior right neck mass over a few days that was enlarging and painful. CT neck on 05/29/18 at [facility] demonstrated an abscess and raised concern for loc al recurrence of tumor as well. Lesion was treated at [facility] with I&D and antibiotics on 05/29. F/U with Dr. Monge on 06/07/18 and FNA of the lesion was negative for carcinoma. Titus mmended PET/CT and surgical exploration. -PET/CT, detailed below, demonstrated an abnormal area of metabolic activity in the anterio r right neck measuring 2.3 x 2 x 1 cm, SUV 11.5, corresponding to the abscess. No lesions d emonstrated in the larynx or airway, no malignant-appearing adenopathy. - Surgical exploration on 06/20/18 with I&D and biopsy of the abscess was negative for malign ajay. At the time of surgery he also evaluated the airway and incidentally found "A small r egion of what appeared to be scar tissue was biopsied just inferior to the right arytenoid m ound near the pexis site." Pathology of this lesion proved to be recurrent squamous cell car cinoma, moderately differentiated. -Ronni has been healing well from this most recent procedure. He continues to eat normall y. He is experiencing less pain at the anterior neck. No recurrence of infection. Continu es to use tobacco and alcohol, beer, daily. ROS REVIEW OF SYSTEMS Constitutional: Denies fatigue. Denies high fevers, shaking chills, anorexia, nausea, vomit ing, weight loss, or night sweats. Appetite without changes. Occasional night sweats. Ear, Nose, Mouth, Throat: Denies odynophagia or dysphagia. Chronic bilateral tinnitus repor charo. Cardiovascular: Denies shortness of breath, dyspnea on exertion, chest pain, palpitations o r orthopnea. Respiratory: Denies cough, hemoptysis, or sputum production.Clearing of the throat producin g clear phlegm. Gastrointestinal: Denies abdominal pain, constipation, diarrhea, melena, or bright red bloo d per rectum. Genitourinary: Denies hematuria or dysuria. Musculoskeletal: Denies joint pain or tenderness. Neurologic: Denies headache, visual changes, or numbness/tingling of the extremities. Endocrine: Denies peripheral edema or heat/cold intolerance. Hematologic: Denies spontaneous bruising or bleeding. Integumentary: Denies rash, wounds or other skin concerns. Pain: Pain located on the outside of neck. Rates the pain at a 3/10, with gabapentin. Pain can get as high as a 4-5/10. Tolerable pain level: 4-5>/10. Note: Pt is here for a consultation for~SCC glottis. Referred by Dr. Mcclain. hx: none Exposure to harmful chemicals: none My chart: Active Current Outpatient Prescriptions Medication Sig Dispense Refill acetaminophen (TYLENOL) 500 mg tablet Take by mouth. ADVAIR DISKUS 500-50 MCG/DOSE diskus inhaler inhale 1 puff by mouth INTO THE LUNGS 2 TI MES DAILY (Patient not taking: Reported on 07/19/2018) 60 each 11 albuterol (VENTOLIN HFA) 90 mcg/puff inhaler Inhale 2 puffs into the lungs every 6 hour s as needed for Wheezing. amLODIPine (NORVASC) 10 MG tablet Take by mouth. docusate-senna (SENOKOT-S) 50-8.6 mg per tablet Take by mouth. famotidine (PEPCID) 20 mg tablet Take 20 mg by mouth 2 times daily. gabapentin (NEURONTIN) 300 mg capsule Take by mouth. nicotine (NICORETTE) 4 mg gum Take 4 mg by mouth as needed for Nicotine Craving. Chew a nd tuck 1 piece every 1-2 hours for weeks 1-6 then every 2-4 hours for weeks 7-9 then every 4-8 hours weeks 10-12 (max 24 pieces/day). oxyCODONE (ROXICODONE) 5 mg tablet Take 5 mg by mouth every 4 hours as needed. Take 1-3 tablets every 4 hours as needed. penicillin 125 mg/5 mL solution Take by mouth. penicillin 500 mg tablet take 1 tablet by mouth every 6 hours for SKIN INFECTION 0 polyethylene glycol (MIRALAX) powder Take by mouth. PROAIR HFA 108 (90 BASE) MCG/ACT inhaler inhale 2 puffs by mouth INTO THE LUNGS EVERY 4 HOURS NEEDED FOR WHEEZING 8.5 g 6 sildenafil (VIAGRA) 100 MG tablet Take 100 mg by mouth as needed for Erectile Dysfuncti on. Take 1 tablet by mouth daily 1 hour before if needed. varenicline (CHANTIX) 1 MG tablet Take 1 mg by mouth 2 times daily. No current facility-administered medications for this encounter. 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) Tobacco abuse Past Surgical History: Procedure Laterality Date direct laryngoscopy with bipsy using operating microscope LIVER BIOPSY 12/07/2016 Procedure: US GUIDED LIVER BIOPSY - Location: [facility] NASAL SEPTUM SURGERY repair supracricoid laryngectoly with cricohyoidoepiglottopexy resconstruction Family History Problem Relation Age of Onset Cancer Other Maternal grandmother~Bladder Cancer Paternal Uncle lung Cancer Paternal Uncle lung Cancer Paternal Uncle lung Social History Social History Marital status: Spouse name: N/A Number of children: N/A Years of education: N/A Occupational History Not on file. Social History Main Topics Smoking status: Current Every Day Smoker Packs/day: 1.00 Years: 23.00 Types: Cigarettes Smokeless tobacco: Never Used Comment: he is smoking slightly about a ppd, he is almost ready to try quitting again Alcohol use 21.0 oz/week 42 Standard drinks or equivalent per week Comment: 6 pack per night Drug use: No Sexual activity: Not on file Other Topics Concern Not on file Social History Narrative No narrative on file Questionnaires: Have you ever had radiation treatment: no Comments: Do you have a pacemaker or ICD: no Are you claustrophobic? yes Comments: Do you have a connective tissue disorder such as Lupus, Scleroderma, or other: no Do you have the ability to become : no If yes, what type of contraceptive do you prefer: Vital Sign Current: Last 24 Hours: Temperature Temp: 37.2 C (99 F) Temp Min: 37.2 C (99 F) Max: 37.2 C (99 F) Blood Pressure BP: (!) 145/92 BP Min: 145/92 Max: 145/92 Pulse Pulse: 93 Pulse Min: 93 Max: 93 Respirations Resp: 16 Resp Min: 16 Max: 16 Pain Rating Rest No Data Recorded Pain Rating Activity No Data Recorded O2 Sat SpO2: 97 % on liters/minute SpO2 Min: 97 % Max: 97 % Current Wt Current Wt: 97.4 kg (214 lb 11.7 oz) Height: 188 cm (6' 2.02") Admit Wt Admit Wt: 97.4 kg (214 lb 11.7 oz) Body mass index is 27.56 kg/m. Physical Exam: General: Healthy appearing robust man in no acute medical distress. KPS: 90 HEENT: Pupils equal, round and reactive to light. No conjunctival icterus or injection. EOM I. Oral, moist mucus membranes. Well-healed surgical incision across the anterior and right neck. Mild fibrosis and edema. No malignant-appearing changes, no induration or erythema. Lymphatic: No cervical, supraclavicular or axillary lymphadenopathy. [...] extremities normally with normal gait. Psychiatric: Appropriate. Procedure: Fiberoptic laryngoscopy/endoscopy: After verbal consent was obtained, [...] to visualize. Relevant findings are reported here: Postoperative changes in the right hemilarynx. Left arytenoid appears normal. No grossly m alignant changes. Labs: No recent results. Imagin05/29/18 EXAM: CT NECK SOFT TISSUE W CONTRA HISTORY:T3N0 SCC of the larynx s/p partial laryngectomy with new right sided firm neck mass, evaluate for enlarged node versus infection/abscess. COMPARISON: Outside CT 12/15/2017 TECHNIQUE: Axial CT images of the neck with iodine based intravenous contrast, with sagitta l and coronal reformations. FINDINGS: PHARYNX/LARYNX: Postsurgical changes of partial laryngectomy. SALIVARY GLANDS: Unremarkable. LYMPH NODES: There are several mildly prominent right cervical chain lymph nodes, likely re active, with preservation of the fatty hilum. No pathologically enlarged lymph nodes are see n. OTHER NECK SOFT TISSUES: Within the anterior right neck, anteromedial to the right sternocl eidomastoid muscle is a mildly ill-defined rim-enhancing fluid collection measuring 3.9 x 1. 9 x 1.3 cm. Inferiorly, there is stranding of the superficial fat but less than expected fat stranding is seen along the superior margins of the presumed infectious site. This raises t he possibility of locally recurrent/metastatic disease with superinfection. SKULL/SKULL BASE: No fractures or destructive lesions. Visualized mastoids and middle ears are unremarkable. PARANASAL SINUSES: Minimal scattered ethmoid air cell mucosal thickening. Otherwise clear. POSTERIOR FOSSA: Visualized portions are unremarkable. SPINE: Visualized portions are unremarkable. LUNG APICES: Mild apical emphysematous changes. Otherwise unremarkable. IMPRESSION: Mixed soft tissue and fluid density abnormality in the right neck just medial to the sterno cleidomastoid muscle as described above. Given the patient's symptoms and physical exam, whi le infection is a possibility, the extent of enhancing tissue and the absence of adjacent in flammatory changes are primarily suspicious for a focus of tumor. I have personally reviewed the images and, if necessary, edited the report. I agree with th e report as now presented. Final signature: Pasquale Chandler MD 05/29/2018 4:37 PM Pathology: 01/16/18 SPECIMEN Procedure:Partial laryngectomy: supracricoid partial laryngectomy sparing left arytenoid TUMOR Tumor Site:Larynx, glottis :with subglottic extension Transglottic Extension:Present Tumor Laterality:Right Histologic Type: :Squamous cell carcinoma, conventional (keratinizing) Histologic Grade:G2: Moderately differentiated Tumor Focality:Unifocal Tumor Size:Greatest dimension in Centimeters (cm): 1.1 Centimeters (cm) Tumor Extent: Tumor Extension:invades adjacent skeletal muscle without cartilage or bone involvment Lymphovascular Invasion:Not identified Perineural Invasion:Not identified MARGINS Margins:Uninvolved by invasive tumor Distance from Closest Margin in Millimeters (mm):Cannot be determined: sep arately submitted margins (parts B-F) LYMPH NODES : Regional Lymph Nodes: Number Involved:0 Number of Lymph Nodes Examined:9 PATHOLOGIC STAGE CLASSIFICATION (pTNM, AJCC 8th Edition) : Primary Tumor (pT):pT4a Regional Lymph Nodes (pN):pN0 A. Right neck contenst, dissection: Nine lymph nodes, negative for carcinoma (0/9) B. Right inter arytenoid, biopsy: Squamous mucosa, negative for carcinoma or high grade dysplasia C. Right subglottis, biopsy: Squamous mucosa with submucosal glands, negative for carcinoma or high grade dysplasia D. Right false vocal cord, biopsy: Squamous mucosa with submucosal glands, negative for carcinoma or high grade dysplasia E. Right side epiglottis, biopsy: Squamous mucosa with submucosal glands, negative for carcinoma or high grade dysplasia F. Right side paraglotic, biopsy: Skeletal muscle, negative for carcinoma G. Larynx, partial laryngectomy: Squamous cell carcinoma, keratinizing, moderately differentiated, see staging summary Carcinoma invades skeletal muscle No invasion of cartilage or bone is identified Carcinoma is present <0.1 cm from right posterior and inferior soft tissue specimen tiny ins. See parts B-F for final margin status 06/07/18 Right anterior neck nodule FNA: - Negative for carcinoma, see comment 06/20/18 A. Right glottis, biopsy: - Invasive squamous cell carcinoma, moderately differentiated with keratinization, involvin g squamous mucosa with focal surface dysplasia B. Right neck mass, frozen section biopsy: - Fibromuscular connective tissue with sclerotic changes - Negative for malignancy C. Right neck mass, incision and drainage: - Fibromuscular and fibroadipose connective tissue with abscess cavity containing Actinomyc ete sp. sulfur granules, extensive granulation change and dense fibrinopurulent inflammation - Specimen reviewed in-toto - Negative for malignancy Assessment and Plan : ICD-10-CM ICD-9-CM 1. Larynx cancer (HCC) C32.[address] Treatment Plan Complex 2. Malignant neoplasm of glottis (HCC) C32.0 161.0 Ronni Chowdhury is a 47 y.o. male with a history of locally advanced moderately differentiat ed squamous carcinoma (p16 neg) of the glottic larynx treated with primary resection in 2017, right partial laryngectomy and right neck dissection, pT4a pN0. Negative, though cl ose inferior/posterior margin. 4 months postoperatively developed an anterior neck abscess. During the course of management for the abscess he was incidentally identified to have a s mall area of recurrence within the airway, just inferior to resection margin. Per direct co nversation with Dr. Moscoso the lesion as located on the posterior lateral cricoid, small and largely removed with biopsy. His exam and my exam today did not demonstrate any evidenc e for extensive involvement of recurrent disease. Recent PET/CT also did not definitively d emonstrate this area. My review of PET/CT demonstrates a subtle soft tissue prominence and metabolic activity at the described site, though well below a level that would raise suspici on in and of itself. No evidence for malignant adenopathy and prior right neck dissection n egative for poly involvement. We discussed that management options include total laryngectomy or radiation therapy. Mr Sylvester Chowdhury organ preservation and management with radiation. Given the very small size of recu rrence with no prior or current evidence for poly involvement, Dr. Moscoso and I did not feel that chemotherapy would be necessary for management. Intensity modulated radiation ther apy (IMRT) will be utilized for dose containing. Therapeutic dosing to the area of recurren ce, 66-70 Gy and lower dose, prophylactic radiation to the surrounding larynx and draining n odal regions. Relative sparing of the left arytenoid requested by Dr. Moscoso, to preserv e as much function is possible. Treatment will be given over 6-7 weeks. I also encouraged Ronni to work at [employer] back or discontinuing tobacco and alcohol use. He cites his job and the cancer diagnosis as stressful factors that limit his ability. The risks, benefits, logistics, and techniques of external beam irradiation for the treatme nt of this condition were discussed in detail including the process of simulation and treatm ent delivery. A detailed discussion regarding signs and symptoms of early(temporary) and la te(permanent) side effects occurred next. Ronni verbalized understanding of the treatment r ecommendation and wishes to proceed to simulation this will be scheduled as soon as possible . Radiation expected to begin in about 2 weeks. The information found at www.rtanswers.org was advised for further information specific to radiation therapy. Ronni was encouraged to call our clinic with any further questions or c oncerns. A visit summary was given to the patient prior to leaving clinic today. Thank you for allowing me to participate in the care of Ronni. If you should have any ques tions regarding this evaluation, please do not hesitate to contact me. Naida Burnette M.D. Radiation Oncologist Department of Radiation Oncology [facility] Office: [phone] CC: Patient Care Team: Daniel Cannon MD as PCP - General (Family Medicine) Jorje Castillo MD as Consulting Physician (Otolaryngology) Pasquale Moscoso MD as Consulting Physician (Otolaryngology) documented in this encounter Plan of Treatment +--------+ + + + + | Date | Type | Specialty | Care Team | Description | +--------+ + + + + | 01/01/ | Appointment | Radiation Oncology | Naida Burnette | | | 2019 | | | M, MD [address] | | | | | | [place] | | | | | | [address] | | | | | | | | +--------+ + + + + documented as of this encounter Results CT Treatment Plan Complex [...] | + + | Larynx cancer (HCC) - Primary Malignant neoplasm of larynx, unspecified site | + + | Malignant neoplasm of glottis (HCC) Malignant neoplasm of glottis | + + documented in this encounter
--- OUTSIDE RECORDS SUMMARY | ~2019-10-09 | XMS | Encounter Summary ---
Demographics + + + | Address | [address] | | | [place] [address] | + + + | Home Phone | | + + + | Preferred Language | Unknown | + + + | Marital Status | | + + + | Alevism Affiliation | NRP | + + + | Race | White | + + + | Ethnic Group | Not or | + + + Author + + + | Author | [facility] | + + + | Organization | [facility] | + + + | Address | Unknown | + + + | Phone | Unavailable | + + + Support + + + + + | Name | Relationship | Address | Phone | + + + + + | Cecile Chowdhury | ECON | [address] | | | | | [place] [address] | | + + + + + Care Team Providers + +------+ + | Care Social Service Director Name | Role | Phone | + +------+ + | Daniel Cannon MD | PCP | | + +------+ + Reason for Visit + + + | Reason | Comments | + + + | Refill Request | | + + + Encounter Details +--------+--------+ + + + | Date | Type | Department | Care Team | Description | +--------+--------+ + + + | 07/16/ | Refill | Otolaryngology | Augustine Leal, | Refill Request | | 2018 | | Laryngology Services | MD [address] | | | | | at [facility] [address] | [place], [place] | | | | | [address] [place], | [address] | | | | | [place] [address] | [phone] | | | | | [phone] | | | +--------+--------+ + + + [...] | Visit | | MD Sidney [address] | | | | | | [address] | | | | | | [place] | | | | | | [address] | | | | | | [phone] | | | | | | | | +--------+---------+ + + + documented as of this encounter Visit Diagnoses Not on filedocumented in this encounter"
--- OUTSIDE RECORDS SUMMARY | ~2019-10-09 | XMS | Encounter Summary ---
Demographics + + + | Address | [address] | | | [place] [address] | + + + | Home Phone [...] | Author | [facility] | + + + | Organization | [facility] | + + + | Address | Unknown | + + + | Phone | Unavailable | + + + Support + + + + + | Name | Relationship | Address | Phone | + + + + + | Cecile Chowdhury | ECON | [address] | | | | | [place] [address] | | + + + + + Care Team Providers + +------+ + | Care Street Sweeper Operator Name | Role | Phone | [...] | | | | | floor, Room [facility] | | | | | | [place], [place] | | | | | | [address] | | | +--------+ + + + [...] 2020 | Visit | | MD Sidney [address] | | | | | | [address] | | | | | | [place], [place] | | | | | | [address] | | | | | | [phone] | | | | | | | | +--------+---------+ + + + documented as of this encounter Visit Diagnoses Not on filedocumented in this encounter"
--- OUTSIDE RECORDS SUMMARY | ~2019-10-09 | XMS | Clinical Summary ---
Demographics + + + | Address | [address] | | | [place] [address] | + + + | Home Phone | | + + + | Preferred Language | Unknown | + + + | Marital Status | | + + + | Advent Affiliation | NRP | + + + | Race | White | + + + | Ethnic Group | Not or | + + + Author + + + | Author | [facility] | + + + | Organization | [facility] | + + + | Address | Unknown | + + + | Phone | Unavailable | + + + Support + + + + + | Name | Relationship | Address | Phone | + + + + + | Cecile Chowdhury | ECON | [address] | | | | | [place] [address] | | + + + + + Care Team Providers + +------+ + | Care Disease Education Specialist Name | Role | Phone | + +------+ + | Daniel Cannon MD | PCP | | + +------+ + Source Comments [facility] is fully live on both [facility] and [facility] InPatient.[facility] Allergies No Known Allergies Medications + + + +---------+------+------+-------+ | Medication | Sig | Dispensed | Refills | Star | End | Statu | | | | | | t | Date | s | | | | | | Date | | | + + + +---------+------+------+-------+ | amLODIPine 10 mg | Take 10 mg by mouth | | 0 | 04/0 | | Activ | | oral | once daily. | | | 07/06 | | e | | tabletIndications: | Indications: | | | 18 | | | | hypertension | hypertension | | | | | | + + + +---------+------+------+-------+ | albuterol 90 | Inhale 1-2 puffs by | | 0 | | | Activ | | mcg/actuation | mouth every four | | | | | e | | inhalation HFA | hours as needed | | | | | | | aerosol inhaler | (shortness of | | | | | | | | breath, wheezing). | | | | | | + + + +---------+------+------+-------+ | VENTOLIN HFA 90 | inhale 1-2 puffs | 18 g | 0 | 12 | | Activ | | mcg/actuation | every 4 hours if | | | 3/20 | | e | | inhalation HFA | needed if needed | | | 19 | | | | aerosol inhaler | | | | | | | + + + +---------+------+------+-------+ Active Problems + + + | Problem | Noted Date | + + + | Chronic laryngopharyngitis | 06/28/2019 | + + + | History of radiation therapy | 06/28/2019 | + + + | Pharyngeal dysphagia | 02/07/2018 | + + + | T3N0 SCCa, right glottis | 01/05/2018 | + + + | Dysphonia | 01/05/2018 | + + + | Allergic rhinitis | 04/25/2014 | + + + | Tobacco abuse | 02/17/2012 | + + + | Asthma | 02/08/2012 | + + + Resolved Problems + + + + | Problem | Noted | Resolved | | | Date | Date | + + + + | Neck infection | 05/29/20 | | | | 18 | 8 | + + + + | Phlegmon | 05/29/20 | | | | 18 | 8 | + + + + | Gastrostomy tube in place | 02/08/20 | | | | 18 | 8 | + + + + | Tracheostomy in place | 02/08/20 | | | | 18 | 8 | + + + + | Cancer of larynx | 12/30/19 | | | | 18 | 8 | + + + + Encounters +--------+ + + + + | Date | Type | Specialty | Care Team | Description | +--------+ + + + + | 09/26/ | Refill | Otolaryngology | Lamin Osullivan, | Refill Request | | 2019 | | | PA-C | | +--------+ + + + + | 09/21/ | Office | Otolaryngology | Pasquale Moscoso | T3N0 SCCa, right | | 2019 | Visit | | [facility] [place] | glottis (Primary | | | | | | Dx); Pharyngeal | | | | | | dysphagia; | | | | | | Dysphonia; Tobacco | | | | | | abuse; History of | | | | | | radiation therapy; | | | | | | Chronic | | | | | | laryngopharyngitis | +--------+ + + + + | 09/21/ | Hospital | Radiology | Pasquale Moscoso | | | 2019 | Encounter | | [facility] | | +--------+ + + + + | 09/21/ | Travel | | | | | 2019 | | | | | +--------+ + + + + | 09/18/ | MyChart | Radiology | | Appointment | | 2019 | Encounter | | | Confirmation | +--------+ + + + + from Last 3 Months Family History + + +------+ + | Medical History | Relation | Name | Comments | + + +------+ + | None | Father | | | + + +------+ + | None | Mother | | | + + +------+ + | Cancer | Paternal | | 2 uncle's lung | | | Uncle | | | + + +------+ + | Movement Disorder | Neg Hx | | | + + +------+ + | Thyroid | Neg Hx | | | + + +------+ + | Tremor | Neg Hx | | | + + +------+ + + +------+--------+ + | Relation | Name | Status | Comments | + +------+--------+ + | Father | | | | + +------+--------+ + | Mother | | | | + +------+--------+ + | Paternal Uncle | | | | + +------+--------+ + Social History + + + +--------+ [...] | Tobacco Cessation: Counseling Given: Yes | + + + + +---------+ [...] recent travel history available. | + + Last Filed Vital Signs + + + + + | Vital Sign | Reading | Time Taken | Comments | + + + + + | Blood Pressure | 137/101 | 03/14/2019 8:52 AM | One coffee this AM | | | | PDT | | + + + + + | Pulse | 92 | 03/14/2019 8:52 AM | | | | | PDT [...] | | + + + + + Plan of Treatment +--------+---------+ + + + | Date | Type | Specialty | Care Team | Description | +--------+---------+ + + + | 03/19/ | Office | Otolaryngology | Pasquale Moscoso | | | 2020 | Visit | | [facility] [place] [address] [facility] | | | | | | [address] | | | | | | [place], [place] | | | | | | [address] | | | | | | [phone] | | | | | | | | +--------+---------+ + + + + + + + + | Health Maintenance | Due Date | Last Done | Comments | + + + + + | Influenza (Flu) | | 11/07/2014, 07/17/2013, | | | vaccination (#1) | 9 | 07/17/2013, Additional history | | | | | exists | | + + + + + | Pneumococcal | Completed | 04/25/2014 | | | vaccination | | | | + + + + + Procedures + +--------+ + + + | Procedure Name | Priori | Date/Time | Associated Diagnosis | Comments | | | ty | | | | + +--------+ + + + | [place] | Routin | 09/21/2019 | T3N0 SCCa, [...] | | + +--------+ + + + from Last [address] CHEST WO CONTRAST (09/21/2019 11:56 [...] | | | + +---------+ + + from Last 3 Months Insurance + +--------+ +--------+-------+---------+------+ | Payer | Benefi | Subscriber | Effect | Phone | Address | Type | | | t Plan | ID | anika | | | | | | / | | Dates | | | | | | Group | | | | | | + +--------+ +--------+-------+---------+------+ | [employer]ET[employer] DIRECT | AETNA | [phone] | 11/17/19 | | | PPO | | | DIRECT | | 17-Pre | | | | | | | | sent | | | | + +--------+ +--------+-------+---------+------+ + +--------+ +--------+ + + | Guarantor Name | Accoun | Relation to | Date | Phone | Billing Address | | | t Type | Patient | of | | | | | | | | | | + +--------+ +--------+ + + | Ronni Chowdhury | Person | Self [birth year] | [address] | | | al/Fam | | 1971 | [phone] | [place] [address] | | | chary | | | 0 (Home) | | | | | | | [phone] | | | | | | | 1 (Work) | | + +--------+ +--------+ + + Advance Directives + + + + + | Code Status | Date | Date | Comments | | | Activated | Inactivated | | + + + + + | Full Code | 06/20/2018 | 06/21/2018 | | | | 2:37 PM | 5:00 PM | | + + + + + + + + +---+ | | | | | + + + +---+ | Full Code | 01/16/2018 | 01/23/2018 | | | | 6:01 AM | 8:33 PM | | + + + +---+
--- OUTSIDE RECORDS SUMMARY | ~2019-10-09 | XMS | Encounter Summary ---
Demographics + + + | Address | [address] | | | [place] [address] | + + + | Home Phone | | + + + | Preferred Language | Unknown | + + + | Marital Status | | + + + | Cheondoism Affiliation | NRP | + + + [...] | | | | [place] [address] | | + + + + + Care Team Providers + +------+ + | Care Computer Numerical Control Grinder Name | Role | Phone | + [...] Mailcode: | | | | | | [place], [place] | [address] [place] | | | | | | [address] | [facility] | | | | | | Phone: | and Healing, | | | | | | [phone] | [address], | | | | | | Fax: | 15th Floor | | | | | | [phone] | [place], [place] | | | | | | | [address] | | | | | | | Phone: | | | | | | | [phone] | | | | | | | Fax: | | | | | | | [phone] | +--------+--------+ + + + + Encounter Details +--------+ + + + + | Date | Type | Department | Care Team | Description | +--------+ + + + + | 02/13/ | Diagnostic | Otolaryngology | Steven Vidal, | | | 2018 | Visit | Speech Therapy | [facility] [address] | | | | | Services at [facility] | [facility] | | | | | [address] | [place] [address] | | | | | Loop Mailcode: [address] | [phone] | | | | | Physician's | | | | | | [place], | | | | | | [place] [address] | | | | | | [phone] | | | +--------+ + + + [...] be different fro m the original. Clinic: [facility] Referring Physician: Pasquale Moscoso MD PCP: Daniel Cannon MD Medical Diagnosis: 1. T3N0 SCCa, right glottis 2. Dysphonia 3. Dysphagia, pharyngeal phase 4. Attention to tracheostomy (HCC) Date of Onset for This Diagnosis: 01/16/18 Treatment Diagnosis: 1. T3N0 SCCa, right glottis 2. Dysphonia 3. Dysphagia, pharyngeal phase 4. Attention to tracheostomy (HCC) Start of Care Date: 02/06/2018 Clinic: [facility] Referring Physician: [...] seen also with Bernie Fang, Speech Pathology kinesiology internship. The patient is now s/p the following [...] chronic pain (close follow up with his [facility] doctor). The patient had stable respiratory status on 3 Liters of supplement O2 (provided at [facility]). The patient was evaluated by speech language [...] weeks to assess progress. Steven Vidal, PhD, CCC-[facility]IST[facility] P[facility] [place] Dept. of Otolaryngology, [address] [place] [address] SWALLOWING THERAPY SAFETY SWALLOW: 1. Put some food or liquid in your mouth 2. Tuck your chin DOWN 3. Take a deep breath in through your nose 4. Hold your breath TIGHTLY at the level of your throat and 5. SWALLOW HARD 6. Clear your throat 7. Swallow again With practice this becomes automatic & natural! EATING PROGRAM: What do I eat? ? [place] purees: e.g. yogurt, ice cream, apple-sauce, milkshakes, [...] 2020 | Visit | | MD [place] [address] [facility] | | | | | | [address] | | | | | | [place], [place] | | | | | | [address] | | | | | | [phone] | | | | | | | | +--------+---------+ + + + documented as of this encounter Procedures + +--------+ + + + | Procedure Name | Priori | Date/Time | Associated Diagnosis | Comments | | | ty | | | | + +--------+ + + + | IA ORAL FUNCTION | Routin | 02/13/2018 | [...]
--- OUTSIDE RECORDS SUMMARY | ~2019-10-09 | XMS | Encounter Summary ---
Demographics + + + | Address | [address] | | | [place] [address] | + + + | Home Phone | | + + + | Preferred Language | Unknown | + + + | Marital Status | | + + + | Scientologist Affiliation | NRP | + + + | Race | White | + + + | Ethnic Group | Not or | + + + Author + + + | Author | [facility] | + + + | Organization | [facility] | + + + | Address | Unknown | + + + | Phone | Unavailable | + + + Support + + + + + | Name | Relationship | Address | Phone | + + + + + | Cecile Chowdhury | ECON | [address] | | | | | [place] [address] | | + + + + + Care Team Providers + +------+ + | Care Bilingual School Psychologist Name | Role | Phone | + [...] Mailcode: | | | | | | [place], [place] | [facility] | | | | | | [address] | for Health | | | | | | Phone: | and Healing, | | | | | | [phone] | [address], | | | | | | Fax: | 15th Floor | | | | | | [phone] | [place], [place] | | | | | | | [address] | | | | | | | Phone: | | | | | | | [phone] | | | | | | | Fax: | | | | | | | [phone] | +--------+--------+ + + + + Encounter Details +--------+---------+ + + + | Date | Type | Department | Care Team | Description | +--------+---------+ + + + | 01/04/ | Office | Otolaryngology [facility] | Ruth Marinelli, | Dysphonia; Malignant | | 2018 | Visit | [facility] | [employer] [address] | neoplasm of glottis | | | | Swallowing at [facility] | [address] | ([facility]) | | | | [address] | [place] [address] | | | | | Mailcode: [address] | [phone] | | | | | [facility] | | | | | | and Healing, | | | | | | Building | | | | | | Floor [place], [place] | | | | | | [address] | | | | | | [phone] | | | +--------+---------+ + + + [...] 01/04/2018 3:00 PM PDTThank you for choosing [facility] for your [facility] needs. If you need to speak to an ENT physician after normal business hours, please call [phone] and ask to have the ENT phys ician examination scorer paged. documented in this encounter Progress Notes Ruth Marinelli SLP - 01/04/2018 3:00 PM PDT Clinic: [facility] Referring Physician: Javier Montaño MD [address] [place] [address] PCP: Daniel Cannon MD Medical Diagnosis: Cancer of the glottis Date of Onset for This Diagnosis: 12/20/2017 Treatment Diagnosis: Dysphonia Start of Care Date: 01/04/2018 Duration of session: 60 minutes Session Number: 1 SUBJECTIVE: Ronni Chowdhury is a 47 y[address] male of Dr. Montaño referred to the [facility] in for Voice and Swallowing for evaluation of head and neck cancer. Mr. Chowdhury has a 6 mon th history of hoarseness that failed to respond to antibiotics and proton pump inhibitor. Suresh ji is here with his . 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 Vocal demands include talking on the phone, conversations, talking over noise and yelling. The patient does complain of reflux symptoms. SINGING: n/a SWALLOWING: No complaints PSS Speech and Swallowing Scales: PSS-Speech score: Usually understandable, [id number] contact necessary (PSS-Speech 50). PSS-Normalcy of Diet score: 100, full diet (no restrictions). PSS-Eating in Public score: 100, no restriction of place, food, or child development associate teacher. PERCEPTUAL ASSESSMENT: The patient's voice was severely [...] post-operatively as medically appropriate. Ruth Marinelli, Ph.D., [facility] Patrol Judge Director, Clinic for Voice and Swallowing Otolaryngology, Head and Neck Surgery [facility] and [facility] [place] [phone] documented in this e ncounter Plan of [...] Rd | | | | | | [place], [place] | | | | | | [address] | | | | | | [phone] | | | | | | | | +--------+---------+ + + + documented as of this encounter Procedures + +--------+ + + + | Procedure Name | Priori | Date/Time | Associated Diagnosis | Comments | | | ty | | | | + +--------+ + + + | [facility] | Routin | 01/14/2018 | Dysphonia | | | QUALITATIVE ANALYSIS | e | 11:31 PM | Malignant neoplasm | | | OF VOICE AND | | PDT | of glottis (HCC) | | | RESONANCE | | | | | + +--------+ + + + | [place] | Routin | 01/14/2018 | Dysphonia | [...]
--- OUTSIDE RECORDS SUMMARY | ~2019-10-09 | XMS | Encounter Summary ---
Demographics + + + | Address | [address] | | | [place] [address] | + + + | Home Phone | | + + + | Preferred Language | Unknown | + + + | Marital Status | | + + + | Zoroastrianism Affiliation | NRP | + + + | Race | White | + + + | Ethnic Group | Not or | + + + Author + + + | Author | [facility] | + + + | Organization | [facility] | + + + | Address | Unknown | + + + | Phone | Unavailable | + + + Support + + + + + | Name | Relationship | Address | Phone | + + + + + | Cecile Chowdhury | ECON | [address] | | | | | [place] [address] | | + + + + + Care Team Providers + +------+ + | Care Layup Worker Name | Role | Phone | + +------+ + | Daniel Cannon MD | PCP | | + +------+ + Reason for Visit +---------+ + | Reason | Comments | +---------+ + | Post Op | | +---------+ + Encounter Details +--------+---------+ + + + | Date | Type | Department | Care Team | Description | +--------+---------+ + + + | 02/06/ | Office | Otolaryngology | Pasquale Moscoso | T3N0 SCCa, right | | 2018 | Visit | Laryngology Services | S, MD [address] | glottis (Primary | | | | at [facility] [address] | Dx); Pharyngeal | | | | [address] | [place], [place] | dysphagia; | | | | Mailcode: PV01 | [address] | Dysphonia; | | | | [facility] | [phone] | Tracheostomy in | | | | [place], [place] | | place ([facility]); | | | | [address] | | Gastrostomy tube in | | | | [phone] | | place ([facility]) | +--------+---------+ + + + Social History [...] Counseling Given: Yes | | Comments: using Chantix--2 cigarettes per day [...] + + + | Blood Pressure | 111/69 | 02/06/2018 10:12 AM | | | | | PDT | | + + + + + | Pulse | 77 | 02/06/2018 10:12 AM | | | | | PDT [...] + + + + | Weight | 97.5 kg (214 lb 14.4 | 02/06/2018 10:12 AM | | | | oz) | PDT | | + + + + + | Height | - | - | | + + + + + | Body Mass Index | 27.59 | 01/16/2018 6:00 AM | | | [...] encounter Progress Notes Pasquale Moscoso MD - 02/06/2018 11:30 AM PDT PATIENT NAME: Ronni Chowdhury MR#: [id number] : 1970 REFERRING PROVIDER: [place] [address] PRIMARY CARE PHYSICIAN: Daniel Cannon MD CLINIC: [facility] REASON FOR FOLLOW-UP: Chief Complaint Patient presents with Post Op RECENT PROCEDURE: supracricoid partial laryngectomy with cricohyoidoepiglottopexy and wesly fied radical neck dissection Results for orders placed or performed during the hospital encounter of 01/16/18 SURGICAL PATHOLOGY Result Value Ref Range Clinical History Malignant neoplasm of glottis, Dysphonia Final Pathologic Diagnosis A. Right neck contents, dissection: Nine lymph nodes, negative for carcinoma [...] or high grade dysplasia F. Right side paraglottic, biopsy: Skeletal muscle, negative for carcinoma G. Larynx, partial laryngectomy: Squamous cell carcinoma, keratinizing, moderately differentiated, see staging summary Carcinoma invades skeletal muscle No invasion of cartilage or bone is identified Carcinoma is present <0.1 cm from right posterior and inferior soft tissue specimen tiny ins. See parts B-F for final margin status Comment: A cytokeratin cocktail stain was performed on blocks G3 and G4 to evaluate margin status. Case seen by: Anitha Galindo MD / Pathology Resident Shamar Mcdermott MD PhD / Pathologist My electronic signature indicates that I have personally reviewed all diagnostic slides, the gross and/or microscopic portion of this report and formulated the final diagno sis. TUMOR TYPE/LOCATION: squamous cell carcinoma, right glottis TNM/STAGE: [id number]/Stage III IDENTIFICATION DATE: 11/29/17 SURGICAL EXCISION DATE: 01/16/18 TYPE OF SURGERY: supracricoid partial laryngectomy with cricohyoidoepiglottopexy, right mod ified radical neck dissection RADIATION THERAPY COMPLETED: -- RADIATION THERAPIST: -- RADIATION DOSE: -- cGy to primary site. CHEMOTHERAPY GIVEN: No MEDICAL ONCOLOGIST: Javier Montaño MD --------- HPI: Mr. Chowdhury is a 47 y.o. male who returns for his first postoperative visit. He was di scharged about a week following surgery without apparent complication. At the time of his p rocedure he was noted to have: FINDINGS: There was a deeply invasive lesion of the right true vocal fold filling the righ t paraglottic space. There was no cricoarytenoid joint fixation. The subglottic airway was minimally involved. The tumor remained limited to the right vocal fold and did not seem to extend into the supraglottis. All margins were negative for malignancy or high-grade dyspl eva. No worrisome lymph nodes were palpated during resection. The stomach was unremarkable . Mr. Chowdhury returns noting that he is doing well at home. He is not having any problems with his tracheotomy tube. He is not having any problems with his gastrostomy tube. He is feedi ng enterally and doing well with this. He has been compliant with NPO status. He is using s ome spiting protocol. He has not had any fevers, chills or sweats. His throat pain has reso lved. He has not noted any otalgia. He is not smoking. He is not maintained on a proton [...] left arytenoid spared Cricohyoidoepiglottopexy 01/16/2018 Dr. Moscoso ALLERGIES: No Known Allergies MEDICATIONS: Current Outpatient Prescriptions Medication Sig acetaminophen 500 mg oral tablet 2 tablets by feeding tube route four times daily as ne eded. albuterol 90 mcg/actuation inhalation HFA aerosol inhaler Inhale 1-2 puffs by mouth rashawn ry four hours as needed. Indications: SOB amLODIPine 10 mg oral tablet 1 tablet by feeding tube route once daily. Indications: hy pertension CHANTIX STARTING MONTH BOX 0.5 mg (11)- 1 mg (42) oral tablets,dose pack Take 0.5 mg da chary for 3 days, then increase to 0.5 mg twice daily for 4 days, then increase to 1 mg twice daily. Feeding tube chlorhexidine 0.12 % mucous membrane mouthwash Take 15 mL by mouth two times daily. Swi sh undiluted oral rinse around in mouth for 30 seconds, then spit. Do not swallow. famotidine 20 mg oral tablet Take 1 tablet by feeding tube route two times daily. fluticasone-salmeterol (ADVAIR DISKUS) 500-50 mcg/dose inhalation blister with device i nhale 1 puff by mouth INTO THE LUNGS 2 TIMES DAILY MEDICAL SUPPLY, MISCELLANEOUS (RX HOME OXYGEN) Concentrator oxygenTrach mask for walking Portable gas tank system MEDICAL SUPPLY, MISCELLANEOUS (RX TRACHEOSTOMY TUBE) Malignant Neoplasm of Glottis Dysphonia oxyCODONE (immediate release) 5 mg oral tablet Take 1 to 3 tablets by feeding tube rout e every four hours as needed. polyethylene glycol 17 gram oral powder in packet 1 packet by feeding tube route once d aily as needed. Indications: constipation senna-docusate (SENNA PLUS) 8.6-50 mg oral tablet Take 1 tablet by mouth twice daily as needed. Indications: constipation VENTOLIN HFA 90 mcg/actuation inhalation HFA aerosol inhaler inhale 1-2 puffs every 4 t o 6 hours if needed No current facility-administered medications for this visit. EXAMINATION: BP 111/69 | Pulse 77 | Wt 97.5 kg (214 lb 14.4 oz) | BMI 27.59 kg/(m^2) Gen: He is a 47 y.o. [...] or masses. Neck: The neck has a healing apron incision. There is no significant erythema, fluctuance or evidence of fistula. There is no crepitance noted. The #6 [facility] tracheotomy tube i s intact and not occluded. There is no lymphadenopathy noted in the anterior, posterior, di gastric or submental triangles. The thyroid is palpable, but not enlarged or tender. I can not appreciate any nodules. The larynx is absent and the pexis is intact. Chest: Chest rise is symmetric and there is no audible wheezing, stridor or wet vocal qual ity. His chest is clear to auscultation bilaterally. There is some stridor with digital oc clusion of the tracheotomy tube, but this is quite mild. Heart: He has a regular rate and rhythm. His pulses are full. Abdomen: The abdomen is non-distended and non-tender. There is no rebound tenderness. Th ere is little or no guarding. The gastrostomy tube is intact and the site is clean. There is no evidence of infection. Neurologic: The patient is awake, alert and cooperative with the examination. Responses t o questions were judged to be appropriate throughout the interview. The extraoccular moveme nts are intact and symmetric throughout. The pupils are equal. Advisory Application Developer strength does jessica ear full bilaterally. Facial [...] voice evaluation demonstrates dysphonia which is severe. Th e pitch is markedly elevated for a male and shows markedly limited range. Vocal intensity is low and shows markedly limited upper range. There is 1+ roughness, 3+ breathiness, 2+ as thenia and 1+ tightness appreciated. There is no tremor noted with sustained vowel phonati on. I am unable to detect voice breaks. Glottal parsons is not detected. There is no diplopho josseline noted. Articulation is normal. Resonance is difficult to discern as he is quite breath y. PROCEDURE: Tracheotomy tube change was performed today. His neck was gently extended. Th e old tube was removed and the site was inspected as noted above. A fresh #6 Shiley CFS tra cheotomy tube was placed without difficulty using water-based surgical lubricant and the tub e's obturator. There was little bleeding which was suctioned clear. The patient was ventil ating through the new tube quite well, confirming its location. The inner cannula was place d. The tube was secured with a Velcro soft collar. He tolerated the procedure very well. ASSESSMENT: Mr. Chowdhury appears to have tolerated the procedure well. We discussed the find ings at length today. His margins are close on the specimen, but I am satisfied that his ma rgins beyond this are free of high grade dysplasia or invasive squamous cell carcinoma as th heidi were very comprehensively taken in the operating room. 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 I do not believe that Mr. Chowdhury needs additional treatment at this time. He jessica ears to be healing very well. His airway is getting close to ready for corking, but we will start with Passey-[place]ona valve use. PLAN: I recommended starting swallowing therapy today. We reviewed the purpose and use of the Passey-Delma valve as well as removal of this for dyspnea and sleeping. We also reviewe d its care and cleaning. Our speech-language pathologists will see him back in approximatel y 1 week, or sooner if symptoms worsen. If I can, I will also look to downsize or decannula te him at that time. Pasquale Moscoso M.D. Biofuels Product Development Manager Laryngology and Head & Neck Surgery d ocumented in this encounter Plan of Treatment +--------+---------+ + + + | Date | Type | Specialty | Care Team | Description | +--------+---------+ + + + | 03/19/ | Office | Otolaryngology | Pasquale Moscoso | | | 2019 | Visit | | MD [place] [address] | | | | | | 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
--- OUTSIDE RECORDS SUMMARY | ~2019-10-09 | XMS | Encounter Summary ---
Demographics + + + | Address | [address] | | | [place] [address] | + + + | Home Phone | | + + + | Preferred Language | Unknown | + + + | Marital Status | | + + + | Hinduism Affiliation | NRP | + + + | Race | White | + + + | Ethnic Group | Not or | + + + Author + + + | Author | [facility] | + + + | Organization | [facility] | + + + | Address | Unknown | + + + | Phone | Unavailable | + + + Support + + + + + | Name | Relationship | Address | Phone | + + + + + | Cecile Chowdhury | ECON | [address] | | | | | [place] [address] | | + + + + + Care Team Providers + +------+ + | Care Technical Project Lead Name | Role | Phone | + [...] | | | | | | | [place], [place] | | | | | | | [address] | | | | | | | Phone: | | | | | | | [phone] | | | | | | | Fax: | | | | | | | [phone] | + +--------+ + + + + [...] Pharyngeal | | | | [address] [place], | [place], [place] | dysphagia; | | | | [place] [address] | [address] | Dysphonia; Tobacco | | | | [phone] | [phone] | abuse; History of | | | [...] PM PST PATIENT NAME: Ronni Chowdhury MR#: [id number] : 1970 REFERRING PROVIDER: Jorje Castillo MD [facility] ENT [address] [place] [address] PRIMARY CARE PHYSICIAN: Daniel Cannon MD CLINIC: [facility] REASON FOR FOLLOW-UP: Chief Complaint Patient presents with Follow-up visit TUMOR TYPE/LOCATION: squamous cell carcinoma, right glottis TNM/STAGE: [id number]/Stage III IDENTIFICATION DATE: 1) 11/29/17; 3) Reidentified [...] and symmetric throughout. The pupils are equal. Distilling Department Supervisor strength does jessica ear full bilaterally. Facial [...] his exam look concerning. Pasquale Moscoso M.D. Non Food Receiving Clerk Laryngology and Head & Neck Surgery d ocumented in this encounter Plan of Treatment +--------+---------+ + + + | Date | Type | Specialty | Care Team | Description | +--------+---------+ + + + | 03/19/ | Office | Otolaryngology | Pasquale Moscoso | | | 2019 | Visit | | MD [place] [address] | | | | | | [address] | | | | | | [place], [place] | | | | | | [address] | | | | | | [phone] | | | | | | | | +--------+---------+ + + + documented as of this encounter Procedures + +--------+ + + + | Procedure Name | Priori | Date/Time | Associated Diagnosis | Comments | | | ty | | | | + +--------+ + + + | [place] | Routin | 09/21/2019 | T3N0 SCCa, [...]
--- OUTSIDE RECORDS SUMMARY | ~2019-10-09 | XMS | Encounter Summary ---
Demographics + + + | Address | [address] | | | [place] [address] | + + + | Home Phone | | + + + | Preferred Language | Unknown | + + + | Marital Status | | + + + | Mandaen Affiliation | Unknown | + + + | Race | Unknown | + + + | Ethnic Group | Unknown | + + + Author + + + | Author | [facility] | | | and [place] | + + + | Organization | [facility] | | | [...] Team Providers + +------+ + | Care Inpatient Coder Name | Role | Phone | + [...] Dominguez MD | | | | | [place], | | | | | | [place] [address] | | | | | | [phone] | | | +--------+--------+ + + + [...] | | | | | [facility] [place] | | | | | | [address] | | | | | | | | +--------+ + + + + documented as of this encounter Visit Diagnoses Not on filedocumented in this encounter"
--- OUTSIDE RECORDS SUMMARY | ~2019-10-09 | XMS | Encounter Summary ---
Demographics + + + | Address | [address] | | | [place] [address] | + + + | Home Phone [...] | | | | [place] [address] | | + + + + + Care Team Providers + +------+ + | Care Dredgemaster Name | Role | Phone | + [...] | | Procedures | [address] | [facility] | | | | | CONSULT TO | [place], [place] | [place], | | | | | ENT GENERAL | [address] | [place] | | | | | | Phone: | [address] | | | | | | [phone] | Phone: | | | | | | Fax: | [phone] | | | | | | [phone] | Fax: | | | | | | | [phone] | +--------+--------+ + + + + Encounter Details +--------+---------+ + + + | Date | Type | Department | Care Team | Description | +--------+---------+ + + + | 05/17/ | Office | Otolaryngology | Pasquale Moscoso | T3N0 SCCa, right | | 2018 | Visit | Laryngology Services | MD [place] [address] | glottis (Primary | | | | at [facility] [address] | [address] | Dx); Dysphonia; | | | | [address] [place], | [place], [place] | Tobacco abuse; | | | | [place] [address] | [address] | Tobacco abuse | | | | [phone] | [phone] | counseling | | | | | [...] 05/17/2018 10:00 AM PDTThank you for choosing [facility] Department of Otolaryngology for your health care needs. If you need to speak to an ENT physician after normal business hours, please call [phone] and ask to have the ENT phys ician electronics department manager paged. documented in this encounter Progress Notes Pasquale Moscoso MD - 05/17/2018 10:00 AM PDT PATIENT NAME: Ronni Chowdhury [facility] MR#: [id number] : 1970 REFERRING PROVIDER: Daniel Cannon MD [place] [address] [place] [address] PRIMARY CARE PHYSICIAN: Daniel Cannon MD CLINIC: [facility] REASON FOR FOLLOW-UP: Chief Complaint Patient presents with Follow-up visit TUMOR TYPE/LOCATION: squamous cell carcinoma, right glottis TNM/STAGE: [id number]/Stage III IDENTIFICATION DATE: 11/29/17 SURGICAL EXCISION DATE: [...] and symmetric throughout. The pupils are equal. Coil Machine Operator strength does jessica ear full bilaterally. Facial [...] laryngeal function studies were completed using the [facility] with a hand- held microphone with a 15cm luann to mouth distance. All measures were obtained using Real Jeffery e Pitch with the VRP button on with the energy shift at 19.5dB applied, with the exception o f the perturbation measures, which were completed using the MD[employer] Knight Advanced program. Maximum phonation time = 10 [...] Laryngovideostroboscopy was performed today by Jonna Moreno CCC-CONCERT PROMOTER. R obi of laryngovideostroboscopy demonstrates laryngeal anatomy [...] reinforce this. He worked with Jonna steiner CCC-CONCERT PROMOTER some on voice today. I will see him back in approximately 2-3 months, or sooner if symptoms worsen. Pasquale Moscoso M.D. Waiter/Waitress Buffet Laryngology and Head & Neck Surgery Pamela Tanner MA - 05/17/2018 10:00 AM PDTlaryngoscopy procedure was performed using the f Vaxart instruments: Description #1: laryngoscope Serial ID #1: [id number] documented in this en counter Plan of Treatment +--------+---------+ + + + | Date | Type | Specialty | Care Team | Description | +--------+---------+ + + + | 03/19/ | Office | Otolaryngology | Pasquale Moscoso | | | 2019 | Visit | | MD [address] [facility] | | | | | | [address] | | | | | | [place], [place] | | | | | | [address] | | | | | | [phone] | | | | | | | [...]
--- OUTSIDE RECORDS SUMMARY | ~2019-10-09 | XMS | Encounter Summary ---
Demographics + + + | Address | [address] | | | [place] [address] | + + + | Home Phone | | + + + | Preferred Language | Unknown | + + + | Marital Status | | + + + | Restoration Affiliation | NRP | + + + [...] | | | | [place] [address] | | + + + + + Care Team Providers + +------+ + | Care Stonecutter Apprentice Hand Name | Role | Phone | [...] | | | | [address] | [place], [place] | dysphagia; | | | | Mailcode: PV01 | [address] | Dysphonia; | | | | [facility] | [phone] | Tracheostomy in | | | | [place], [place] | | place ([facility]); | | | | [address] | | Gastrostomy tube in | | | | [phone] | | place ([facility]) | +--------+---------+ + + + Social [...] AM PDT PATIENT NAME: Ronni Chowdhury MR#: [id number] : 1970 REFERRING PROVIDER: [place] [address] PRIMARY CARE PHYSICIAN: Daniel Cannon MD CLINIC: [facility] REASON FOR [...] TYPE/LOCATION: squamous cell carcinoma, right glottis TNM/STAGE: [id number]/Stage III IDENTIFICATION DATE: 11/29/17 SURGICAL EXCISION DATE: [...] There is no crepitance noted. The [facility] tracheotomy tube i s intact and not [...] and symmetric throughout. The pupils are equal. Detacher strength does jessica ear full bilaterally. Facial [...] for corking, but we will start with Passey-[place] valve use. PLAN: I recommended starting swallowing [...] him at that time. Pasquale Moscoso M.D. 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
--- OUTSIDE RECORDS SUMMARY | ~2019-10-09 | XMS | Encounter Summary ---
Demographics + + + | Address | [address] | | | [place] [address] | + + + | Home Phone | | + + + | Preferred Language | Unknown | + + + | Marital Status | | + + + | Rastafari Affiliation | NRP | + + + [...] | | | | [place] [address] | | + + + + + Care Team Providers + +------+ + | Care Agronomy Professor Name | Role | Phone | + [...] [address] | | | | | ([facility]) | [address] | [place], | | | | | Pharyngeal | [place], [place] | [place] [address] | | | | | dysphagia | [address] | Phone: | | | | | Dysphonia | Phone: | [phone] | | | | | Tobacco | [phone] | Fax: | | | | | abuse | Fax: | [phone] | | | | | Procedures | [phone] | | | | | | CONSULT [...] [address] | | | | | at [facility] [address] | [address] | | | | | [place], | [place], [place] | | | | | [place] [address] | [address] | | | | | [phone] | [phone] | | | | | | | [...] 2020 | Visit | | MD [place] [address] | | | | | | [address] | | | | | | [facility] [place] | | | | | | [address] | | | | | | [phone] | | | | | | | [...]
--- OUTSIDE RECORDS SUMMARY | ~2019-10-09 | XMS | Encounter Summary ---
Demographics + + + | Address | [address] | | | [place] [address] | + + + | Home Phone | | + + + | Preferred Language | Unknown | + + + | Marital Status | | + + + | Anabaptist Affiliation | NRP | + + + | Race | White | + + + | Ethnic Group | Not or | + + + Author + + + | Author | [facility] | + + + | Organization | [facility] | + + + | Address | Unknown | + + + | Phone | Unavailable | + + + Support + + + + + | Name | Relationship | Address | Phone | + + + + + | Cecile Chowdhury | ECON | [address] | | | | | [place] [address] | | + + + + + Care Team Providers + +------+ + | Care Petroleum Refinery Worker Name | Role | Phone | + +------+ + | Daniel Cannon MD | PCP | | + +------+ + Encounter Details +--------+ + + + + | Date | Type | Department | Care Team | Description | +--------+ + + + + | 01/16/ | Procedure | [address] | | | | 2018 | Pass | [address] [facility] | | | | | | [facility] | | | | | | Hospital Admitting | | | | | | Desk Located on the | | | | | | 9th floor | | | | | | [place], [place] | | | | | | [address] | | | +--------+ + + + [...] Rd | | | | | | [place], [place] | | | | | | [address] | | | | | | [phone] | | | | | | | | +--------+---------+ + + + documented as of this encounter Visit Diagnoses Not on filedocumented in this encounter"
--- OUTSIDE RECORDS SUMMARY | ~2019-10-09 | XMS | Encounter Summary ---
Demographics + + + | Address | [address] | | | [place] [address] | + + + | Home Phone | | + + + | Preferred Language | Unknown | + + + | Marital Status | | + + + | Rastafarian Affiliation | Unknown | + + + | Race | Unknown | + + + | Ethnic Group | Unknown | + + + Author + + + | Author | [facility] | | | and [place] | + + + | Organization | [facility] | | | [...] Providers + +------+ + | Care Disease Intervention Specialist Name | Role | Phone | [...] | | ONCOLOGY CLIN[facility] [address] [place], [place] | | | | | [address] | [address] | | | | | [place] [address] | | | | | | [phone] | | | +--------+ + + + [...]
--- OUTSIDE RECORDS SUMMARY | ~2019-10-09 | XMS | Encounter Summary ---
Demographics + + + | Address | [address] | | | [place] [address] | + + + | Home Phone | | + + + | Preferred Language | Unknown | + + + | Marital Status | | + + + | Uatsdin Affiliation | NRP | + + + [...] | | | | [place] [address] | | + + + + + Care Team Providers + +------+ + | Care Fire Suppression Captain Name | Role | Phone | + +------+ + | Daniel Cannon MD | PCP | | + +------+ + Encounter Details +--------+ + + + + | Date | Type | Department | Care Team | Description | +--------+ + + + + | 05/03/ | [facility]ational [facility]or | Otolaryngology | Steve, | | | 2017 | | Laryngology Services | Yolande Casey PA-C | | | | | at [facility] [address] | | | | | [address] [place], | [place], [place] | | | | | [place] [address] | [address] | | | | | [phone] | [phone] | | | | | | | [...] [place] | | | | | | [address] | | | | | | [phone] | | | | | | | | +--------+---------+ + + + documented as of this encounter Visit Diagnoses Not on filedocumented in this encounter"
--- OUTSIDE RECORDS SUMMARY | ~2019-10-09 | XMS | Encounter Summary ---
Demographics + + + | Address | [address] | | | [place] [address] | + + + | Home Phone | | + + + | Preferred Language | Unknown | + + + | Marital Status | | + + + | Yarsanism Affiliation | Unknown | + + + | Race | Unknown | + + + | Ethnic Group | Unknown | + + + Author + + + | Author | [facility] | | | and [place] | + + + | Organization | [facility] | | | [...] Team Providers + +------+ + | Care Counseling Psychologist Name | Role | Phone | + +------+ + | Daniel Cannon MD | PCP | | + +------+ + Encounter Details +--------+ + + + + | Date | Type | Department | Care Team | Description | +--------+ + + + + | 09/11/ | Documentati | [facility] | Lori Tate | | | 2018 | on | MED CNT ONCOLOGY | A, OT | | | | | THERAPY [address] | | | | | | [address] [place], | | | | | | [place] [address] | | | | | | [phone] | | | +--------+ + + + [...] documented as of this encounter Progress Notes Lori Tate, OT - 09/11/2018 9:[facility] [address] [place] [address] Oncology Rehab Screening Date: 09/11/2018 Patient Information Patient Name: Ronni Chowdhury Date of : 1970 Age: 47 y.o. Patient was seen for oncology rehab follow up due to request from radiation oncologist. 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 He was screened last month and rec eived instruction in HEP, including stretching and lymph massage to manage neck tightness an d edema. Patient was seen by MD for OTV last week and was found to have neck edema, includi ng firm, edematous nodule at site of prior abscess. Patient was started on ABO at that time . Therapist met with patient today, and he reports and demonstrates that swollen area on ne ck has greatly decreased since start of ABO. His neck is moderately erythemic; patient repo rts tenderness with touch. Discussed HEP with patient and spouse. Patient continues to per form daily ROM exercises and spouse assists patient with neck massage every evening. She do es report she noted an area on neck that appeared to be slightly opening. Discussed that ma ssage may need to be ceased for final days of treatment and then resumed once skin has heale d after radiation. Encouraged contd daily ROM throughout. Patient and spouse verbalize goo d understanding and have no further questions. Therapist will follow up with patient over f inal days of tx; may benefit from therapy intervention after completion of radiation if area of infection remains firm and edematous. Will have follow up visit in cancer center. Electronically signed by: Lori Tate OT, 09/11/2018 9:51 Patient Name: Ronni Chowdhury/: 1970/ documented in this encounter Plan of Treatment [...] [place] | | | | | | [address] | | | | | | | | +--------+ + + + + documented as of this encounter Visit Diagnoses Not on filedocumented in this encounter"
--- OUTSIDE RECORDS SUMMARY | ~2019-10-09 | XMS | Encounter Summary ---
Demographics + + + | Address | [address] | | | [place] [address] | + + + | Home Phone | | + + + | Preferred Language | Unknown | + + + | Marital Status | | + + + | Mu-Ism Affiliation | Unknown | + + + | Race | Unknown | + + + | Ethnic Group | Unknown | + + + Author + + + | Author | [facility] | | | and [place] | + + + | Organization | [facility] | [...] Team Providers + +------+ + | Care Real Estate Accountant Name | Role | Phone | + +------+ + | Daniel Cannon MD | PCP | | + +------+ + Encounter Details +--------+ + + + + | Date | Type | Department | Care Team | Description | +--------+ + + + + | 09/20/ | Documentati | [facility] | Lori Tate | | | 2018 | on | MED CNT ONCOLOGY | A, OT | | | | | THERAPY [address] | | | | | | [address] [place], | | | | | | [place] [address] | | | | | | [phone] | | | +--------+ + + + [...] encounter Progress Notes Lori Tate, OT - 09/20/2018 10:09 [facility] [address] [facility] [address] Oncology Rehab Screening Date: 09/20/2018 Patient Information Patient Name: Ronni Chowdhury Date of : 1970 Age: 47 y.o. Patient was seen for follow up oncology rehab visit. Patient reports enlarged nodule has c ontinued to decrease in size and firmness; almost gone since use of antibiotics. No other c oncerns re: skin integrity or edema. Patient aware how to contact oncology rehab should he have any questions or concerns in the future. Patient to contact therapist or doctor if change in status. Electronically signed by: Lori Tate OT, 09/20/2018 10:09 Patient Name: Ronni Chowdhury/: 1970/ documented in this encounter Plan of Treatment +--------+ + + + + | Date | Type | Specialty | Care Team | Description | +--------+ + + + + | 01/01/ | Appointment | Radiation Oncology | Naida Burnette | | | 2019 | | | MD [address] | | | | | | [place], [place] | | | | | | [address] | | | | | | | | +--------+ + + + + documented as of this encounter Visit Diagnoses Not on filedocumented in this encounter"
--- OUTSIDE RECORDS SUMMARY | ~2019-10-09 | XMS | Encounter Summary ---
Demographics + + + | Address | [address] | | | [place] [address] | + + + | Home Phone | | + + + | Preferred Language | Unknown | + + + | Marital Status | | + + + | Methodist Affiliation | Unknown | + + + | Race | Unknown | + + + | Ethnic Group | Unknown | + + + Author + + + | Author | [facility] | | | and [place] | + + + | Organization | [facility] | | | [...] Providers + +------+ + | Care Store Operations Manager Name | Role | Phone | [...] Exam | [facility] | MD [address] | | | | | EXTERNAL IMAGING | Brianna MAY | | | | | Jenny [address]UN[address] | [place] [address] | | | | | [place] | | | | | | [address] | | | | | | [phone] | | | +--------+ + + + [...] [place] | | | | | | [address] | | | | | | | [...]
--- OUTSIDE RECORDS SUMMARY | ~2019-10-09 | XMS | Encounter Summary ---
Demographics + + + | Address | [address] | | | [place] [address] | + + + | Home Phone | | + + + | Preferred Language | Unknown | + + + | Marital Status | | + + + | Mormon Affiliation | NRP | + + + [...] | | | | [place] [address] | | + + + + + Care Team Providers + +------+ + | Care Architect Marine Name | Role | Phone | + [...] [place], | | | | y | Localized | Pasquale Little, | Pasquale Little MD | | | | | elaine, | [address] | [address] | | | | | mass and | [address] | [address] | | | | | lump, neck | [address] | [address] [place], | | | | | Malignant | [place], [place] | [place] | | | | | neoplasm of | [address] | [address] | | | | | glottis | Phone: | Phone: | | | | | (HCC) | [phone] | [phone] | | | | | Pharyngeal | Fax: | Fax: | | | | | dysphagia | [phone] | [phone] | | | | | Dysphonia | | | | | | | Procedures | | | | | | | REQUEST TO | | | | | | | SURGERY | | | | | | | ELEMENTARY READING TUTOR | | | | | | | TX | | | | | | | LARYNGOSCOPY | | | | | | | ,DIRCT,OP | | | | | | | SCOPE,BIOPSY | | | | | | | TX REMOVAL | | | | | | | NODES, | | | | | | | NECK,CERV | | | | | | | MOD RAD TX | | | | | | | DRAINAGE | | | | | | | LYMPH | | | | | | | NODE,SIMPLE | | | | | | | TX DRAINAGE | | | | | | | LYMPH | | | | | | | NODE,EXTENSI | | | | | | | VE TX | | | | | | | THYROID | | | | | | | LOBECTOMY,UN | | | | | | | ILAT 90 | | | | | | | global | | | +--------+---------+ + + + + Reason for Visit + + + | Reason | Comments | + + + | Follow-up visit | | + + + Encounter Details +--------+---------+ + + + | Date | Type | Department | Care Team | Description | +--------+---------+ + + + | 06/07/ | Office | Otolaryngology | Pasquale Moscoso | T3N0 SCCa, right | | 2018 | Visit | Laryngology Services | MD [place] [address] [facility] | glottis (Primary | | | | at [facility] [address] | [address] | Dx); Neoplasm of | | | | [address] [place], | [place], [place] | uncertain behavior | | | | [place] [address] | [address] | of neck; Pharyngeal | | | | [phone] | [phone] | dysphagia; Dysphonia | | | | | | | [...] + + + + | Weight | 97.1 kg (214 lb) | 06/07/2018 11:08 AM | | | | | PDT | | + + + + + | Height | - | - | | + + + + + | Body Mass Index | 27.48 | 05/17/2018 10:08 AM | | | [...] Instructions Patient Instructions Pamela Ford MA - 06/07/2018 11:00 AM PDTThank you for choosing [facility] Department of Otolaryngology for your health care needs. If you need to speak to an ENT physician after normal business hours, please call [phone] and ask to have the ENT phys ician clinical operations consultant paged. documented in this encounter Progress Notes Pasquale Moscoso MD - 06/07/2018 11:00 AM PDT PATIENT NAME: Ronni Chowdhury [facility] MR#: [id number] : 1970 REFERRING PROVIDER: Daniel Cannon MD [address] [address] PRIMARY CARE PHYSICIAN: Daniel Cannon MD CLINIC: [facility] REASON FOR FOLLOW-UP: Chief Complaint Patient presents with Follow-up visit TUMOR TYPE/LOCATION: squamous cell carcinoma, right glottis TNM/STAGE: [id number]/Stage III IDENTIFICATION DATE: 11/29/17 SURGICAL EXCISION DATE: 01/16/18 TYPE OF SURGERY: supracricoid partial laryngectomy with cricohyoidoepiglottopexy, right mod ified radical neck dissection RADIATION THERAPY COMPLETED: -- RADIATION THERAPIST: -- RADIATION DOSE: -- cGy to primary site. CHEMOTHERAPY GIVEN: No MEDICAL ONCOLOGIST: Javier Montaño MD --------- HPI: Mr. Chowdhury is a 47 y.o. male who returns for follow up of his squamous cell carcinoma. I saw him last earlier this month and he looked really good. He reports that " a day or t wo later my neck swelled up" and became painful. He saw Augustine Leal MD in my absence who note swelling on the right side of the neck at the level of the pexis anteriorly. A CT sca n of the neck noted a mass with some central necrosis or infection. He was started on antib iotics and asked to follow up when I returned. Mr. Chowdhury returns noting that he feels "OK, but it's pretty sore." The right anterior neck swelling persists and is uncomfortable. 'It can be hard to get to sleep sometimes." Other potts, he denies change in swallowing. He denies problems with productive cough or hemoptysi s. He thinks that his voice continues to improve some. He does not note dyspnea on exertion . He denies stridor or noisy breathing. He continues to smoke. He reports that he "stopped for a bit, but restarted when this came up." He thinks that he is smoking "a little less th an a pack a day" now. He is not maintained on a proton [...] to 1 mg twice daily. Feeding tube clindamycin 300 mg oral capsule Take 2 capsules by mouth every eight hours for 14 days. Indications: skin infection famotidine 20 mg oral tablet Take 1 tablet by feeding tube route two times daily. fluticasone-salmeterol (ADVAIR DISKUS) 500-50 mcg/dose inhalation blister with device i nhale 1 puff by mouth INTO THE LUNGS 2 TIMES DAILY gabapentin 300 mg oral capsule Take 1 capsule by mouth three times daily. Taper up by 1 tablet every 2 days to get to 3 tablets a day. Indications: Neuropathic Pain HYDROcodone-acetaminophen 5-325 mg oral tablet Take 1 to 2 tablets by mouth every four hours as needed. oxyCODONE (immediate release) 5 mg oral tablet Take 1 to 3 tablets by feeding tube rout e every four hours as needed. senna-docusate (SENNA PLUS) 8.6-50 mg oral tablet Take 1 tablet by mouth twice daily as needed. Indications: constipation VENTOLIN HFA 90 mcg/actuation inhalation HFA aerosol inhaler inhale 1-2 puffs every 4 t o 6 hours if needed No current facility-administered medications for this visit. EXAMINATION: Wt 97.1 kg (214 lb) | BMI 27.48 kg/(m^2) Gen: He is a 47 y.o. [...] a healed apron incision. There is no crepitance noted. There is a relat ively indistinct, tender, doughy fullness in the right anterior neck about 2 cm above the ap jm suture line. This is paramidline and along the lateral aspect of the cricohyoidoepiglot topexy and just below. There is no fluctuance. The thyroid is palpable and may be tender. It is difficult to distinguish from this right neck swelling. I cannot appreciate any nodu les. The larynx is absent and the pexis [...] and symmetric throughout. The pupils are equal. Account Resolution Analyst strength does jessica ear full bilaterally. Facial [...] is crisp, midline and without worrisome lesions. The base of tongue is clear and free of worrisome lesions or ma sses. The laryngeal introitus notes an intact pexis. There are no masses, ulcers or granul omas near this. The neoglottis is without worrisome lesions, ulceration or masses. There is trace crusting noted. The left arytenoid is present. It is is fully mobile. The remain ing arytenoid is sensate. Closure is complete with breath holding. The subglottic airway i s patent and without lesions or masses. CT SCAN: Computed tomography of the neck 05/29/18 demonstrates: FINDINGS: PHARYNX/LARYNX: Postsurgical changes of partial laryngectomy. [...] MD 05/29/2018 4:37 PM Preliminary: Omar Gill MD 05/29/2018 4:29 PM Dictation initiated: Omar Gill MD 05/29/2018 2:17 PM FINE NEEDLE ASPIRATION BIOPSY: a fine needle aspiration biopsy of the right paratracheal m ass notes: Final Pathologic Diagnosis Right anterior neck nodule FNA: - Negative for carcinoma, see comment Comment: The specimen primarily consists of acute inflammatory cells and reactive histiocyt es. Case seen by: ELSA Huff(ASCP) - Electric Fan Assembler Elroy Paige DO Cytopathology Fellow Kendall Del Rosario MD Pathologist ASSESSMENT: Mr. Chowdhury has new swelling along the right paratracheal region. The CT scan o f the neck is concerning for persistent malignancy, however, the fine needle aspiration biop sy did not demonstrate this. The location of this and timing would be unusual for squamous cell carcinoma persistence. If a local persistence form the close margins, I would expect t o see the mass or ulcer in the airway. No lymph nodes were noted to have squamous cell carc inoma within, but a regional anterior poly metastatic focus cannot be excluded. I suspect that he may have in infected suture granuloma or similar inflammatory process. While encour aged by the fine needle aspiration biopsy, I think that more definitive measures are critica l to exclude persistent squamous cell carcinoma. Adjuvant treatment would be indicated if th is was true. PLAN: I recommended obtaining a PET-CT which he will have done locally. I will arrange an exam under anesthesia with direct microlaryngoscopy to look at the pexis and revision right modified radical neck dissection to remove anterior lymph nodes and possibly the right marta thyroid lobe if involved with malignancy. A frozen section in the operating room may help b james determine the nature of this lesion. If all inflammatory, then simple curettage may b e indicated. I do not anticipate replacement of a tracheotomy tube or worsening of his swal lowing with this procedure. Finally, we talked for a while about quitting smoking. If infl ammatory, smoking may contribute to this. We talked about means to quit smoking and looking for other sources of support when stress hits. His state will have free resources similar to [employer] [place] that can assist with tobacco cessation. I encouraged him to use the se, but avoid electronic cigarettes. All other nicotine-based means to help quit smoking ar e acceptable. Mr. Chowdhury understands and agrees. After answering all questions to the best of my ability, Mr. Chowdhury has elected to undergo direct microlaryngoscopy with revision modified radical neck dissection and possible hemithy roidectomy. I will forward the information to my assistant women's rowing coach to arrange a surgical date shor tly following the PET-CT. Pasquale Moscoso M.D. [facility] Pamela Tanner MA - 06/07/2018 11:00 AM PDTlaryngoscopy procedure was performed using the f [employer] instruments: Description #1: laryngoscope Serial ID #1: [id number] documented in this en counter Plan of Treatment +--------+---------+ + + + | Date | Type | Specialty | Care Team | Description | +--------+---------+ + + + | 03/19/ | Office | Otolaryngology | Pasquale Moscoso | | | 2020 | Visit | | MD [place] [address] [facility] | | | | | | [address] | | | | | | [place], [place] | | | | | | [address] | | | | | | [phone] | | | | | | | | +--------+---------+ + + + documented as of this encounter Procedures + +--------+ + + + | Procedure Name | Priori | Date/Time | Associated Diagnosis | Comments | | | ty | | | | + +--------+ + + + | FINE NEEDLE ASPIRATE | Routin | 06/07/2018 | T3N0 SCCa, right | Results for this | | | e | 1:25 PM | glottis Neoplasm of | procedure are in the | | | | PDT | uncertain behavior | results section. | | | | | of neck Pharyngeal | | | | | | dysphagia Dysphonia | | + +--------+ + + + | [place] | Routin | 06/07/2018 | T3N0 SCCa, right | | | LARYNGOSCOPY,FLEXIBL | e | 11:41 AM | glottis Neoplasm of | | | E, DIAGNOSTIC | | PDT | uncertain behavior | | | | | | of neck | | + +--------+ + + + | ORDERS OTHER | | 06/07/2018 | | Results for this | | | | 12:00 AM | | procedure are in the | | | | PDT | | results section. | + +--------+ + + + | ORDERS OTHER | | 06/07/2018 | | Results for this | | | | 12:00 AM | | procedure are in the | | | | PDT | | results section. | + +--------+ + + + documented in this encounter Results FINE NEEDLE ASPIRATE (06/07/2018 1:25 PM PDT) + + + + + + | Component | Value | Ref Range | Performed | Pathologist | | | | | At | Signature | + + + + + + | Clinical | 47 year old male with | | [facility] | | | History | history of SCC, recent | | DEPARTMENT | | | | partial laryngectomy. | | OF | | | | | | PATHOLOGY | | + + + + + + | Final | Right anterior neck | | [facility] | Electronically | | Pathologic | nodule FNA: - Negative | | DEPARTMENT | signed by | | Diagnosis | for carcinoma, see | | OF | Dorian | | | commentComment: The | | PATHOLOGY | MD Carin on | | | specimen primarlily | | | 06/08/2018 at | | | consists of acute | | | 2:09 PM | | | inflammatory cells and | | | | | | reactive | | | | | | histiocytes.Case seen | | | | | | by:Delilah Callaway, | | | | | | SCT(ASCP) - | | | | | | CytotechnologistAaron | | | | | | DO Grecia | | | | | | | | | | | | Cytopathology | | | | | | FellowMick MD Carin | | | | | | | | | | | | | | | | | | PathologistMy | | | | | | electronic [...] + + + + + + | Team | Team pause: The fine | | [facility] | | | Pause/Attes | needle aspiration | | DEPARTMENT | | | tation | procedure and anatomic | | OF | | | | site were discussed in | | PATHOLOGY | | | | detail to the patient by | | | | | | and the | | | | | | possible complications | | | | | | of bee-sting like | | | | | | discomfort, a small risk | | | | | | of bleeding and a small | | | | | | risk of infection were | | | | | | discussed. All the | | | | | | patient's questions were | | | | | | answered and an [facility] | | | | | | consent form was | | | | | | completed by | | | | | | Grecia and signed by | | | | | | the patient. Prior to | | | | | | each aspiration, the | | | | | | skin overlying the focus | | | | | | of concern was scrubbed | | | | | | with an alcohol pad and | | | | | | following each | | | | | | aspiration, pressure was | | | | | | applied with a gauze | | | | | | pad. All smear slides | | | | | | were labeled with the | | | | | | patient's initials and | | | | | | the last four digits of | | | | | | the patient's medical | | | | | | record number. All | | | | | | specimen containers and | | | | | | paperwork were labeled | | | | | | with stickers containing | | | | | | the full patient name, | | | | | | MR RAFAELA#. There were | | | | | | no complications | | | | | | following the procedure. | | | | + + + + + + | Immediate | Immediate impression is | | [facility] | | | Impression | negative for malignancy. | | DEPARTMENT | | | | Immediate Impression | | OF | | | | evaluation was performed | | PATHOLOGY | | | | by MS and LUDIVINA. | | | | + + + + + + | Procedure | A. FNA by Pathologist. ? | | [facility] | | | Details | passes yielded fluid | | DEPARTMENT | | | | for 1 [employer] slide, 6 | | OF | | | | air-dried and 2 fixed | | PATHOLOGY | | | | slide(s). A cell block | | | | | | was not performed. | | | | + + + + + + + + | Specimen | + + | Aspirate - Neck | | structure (body | | structure) | + + + + + + + | Performing | Address | City/State/Zipcode | Phone Number | | Organization | | | | + + + + + | [facility] | [address] | [place] [address] | | | PATHOLOGY | [address] | | | + + + + + ORDERS IVAN (06/07/2018 12:00 AM PDT) + + + | Narrative | Performed At | + + + | | | + + + ORDERS OTHER (06/07/2018 12:00 AM PDT) + + + | [...]
--- OUTSIDE RECORDS SUMMARY | ~2019-10-09 | XMS | Encounter Summary ---
Demographics + + + | Address | [address] | | | [place] [address] | + + + | Home Phone | | + + + | Preferred Language | Unknown | + + + | Marital Status | | + + + | Gnosticism Affiliation | Unknown | + + + | Race | Unknown | + + + | Ethnic Group | Unknown | + + + Author + + + | Author | [facility] | | | and [place] | + + + | Organization | [facility] | | [...] Team Providers + +------+ + | Care Folding Machine Operator Name | Role | Phone | + +------+ + | Daniel Cannon MD | PCP | | + +------+ + Encounter Details +--------+ + + + + | Date | Type | Department | Care Team | Description | +--------+ + + + + | 08/08/ | Orders Only | [facility] | Naida Burnette | | | 2017 | | [facility] RADIATION | MD Brad [address] | | | | | ONCOLOGY CLINIC [address] | [place] | | | | | [address] | [address] | | | | | [place] [address] | | | | | | [phone] | | | +--------+ + + + [...] [place] | | | | | | [id number] | | | | | | | | +--------+ + + + + documented as of this encounter Visit Diagnoses Not on filedocumented in this encounter"
--- OUTSIDE RECORDS SUMMARY | ~2019-10-09 | XMS | Encounter Summary ---
Demographics + + + | Address | [address] | | | [place] [address] | + + + | Home Phone | | + + + | Preferred Language | Unknown | + + + | Marital Status | | + + + | Christianity Affiliation | Unknown | + + + | Race | Unknown | + + + | Ethnic Group | Unknown | + + + Author + + + | Author | [facility] | | | and [place] | + + + | Organization | [facility] | | | [...] Team Providers + +------+ + | Care Rod Buster Name | Role | Phone | + +------+ + | Daniel Cannon MD | PCP | | + +------+ + Encounter Details +--------+ + + + + | Date | Type | Department | Care Team | Description | +--------+ + + + + | 08/09/ | Documentati | [facility] | Lori Tate | | | 2018 | on | MED CNT ONCOLOGY | A, OT | | | | | THERAPY [address] | | | | | | [place], | | | | | | [place] [address] | | | | | | [phone] | | | +--------+ + + + [...] encounter Progress Notes Lori Tate, OT - 08/09/2018 10:59 AM [facility] OP [address] [facility] [address] Oncology Rehab Screening Date: 08/09/2018 Patient Information Patient Name: Ronni Chowdhury Date of : 1970 Age: 47 y.o. Patient was seen for oncology rehab screening due to new patient consult. 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 Introduc ed self to patient and spouse and advised them of role and availability of oncology rehab na vigator. Patient is s/p laryngoscopy and removal of R neck abcess 06/20/18 at [facility]. He had s peech therapy intervention initially after surgery. Patient currently report no impairments with swallow; voice is slightly hoarse. Patient currently does not have any impairments in neck ROM or edema. Scar is evident starting on R side of neck below ear and extending to a pprox midline neck. Skin on neck is erythemic, but patient does not report any significant discomfort. Instructed patient in scar massage; to perform as long as skin allows, without tenderness or fragility from radiation. Also instructed in daily ROM/stretching of neck to keep tissues supple and help with preventing edema. Patient and spouse mirian good understand ing and have no further questions at this time. Encouraged them to contact therapist if the y should have any concerns as treatment progresses, including if they would like referral to [facility] here in [place]. Patient to contact therapist or doctor if change in status. Electronically signed by: Lori Tate OT, 08/09/2018 11:00 Patient Name: Ronni Chowdhury/: 1970/ documented in this encounter Plan of Treatment +--------+ + + + + | Date | Type | Specialty | Care Team | Description | +--------+ + + + + | 01/01/ | Appointment | Radiation Oncology | Naida Burnette | | | 2019 | | | MD Brad [address] | | | | | | [place], [place] | | | | | | [address] | | | | | | | | +--------+ + + + + documented as of this encounter Visit Diagnoses Not on filedocumented in this encounter"
--- OUTSIDE RECORDS SUMMARY | ~2019-10-09 | XMS | Encounter Summary ---
Demographics + + + | Address | [address] | | | [place] [address] | + + + | Home Phone | | + + + | Preferred Language | Unknown | + + + | Marital Status | | + + + | Orthodox Affiliation | NRP | + + + | Race | White | + + + | Ethnic Group | Not or | + + + Author + + + | Author | [facility] | + + + | Organization | [facility] | + + + | Address | Unknown | + + + | Phone | Unavailable | + + + Support + + + + + | Name | Relationship | Address | Phone | + + + + + | Cecile Chowdhury | ECON | [address] | | | | | [place] [address] | | + + + + + Care Team Providers + +------+ + | Care Cabinet Installer Name | Role | Phone | [...] | | (HCC) | [address] [place], | | | | | Procedures | [place], [place] | [place] | | | | | [place] | [address] | [address] | | | | | RADIATION | Phone: | Phone: | | | | | ONCOLOGY | [phone] | [phone] | | | | | | Fax: | Fax: | | | | | | [phone] | [phone] | +--------+--------+ + + + + Encounter Details +--------+ + + + + | Date | Type | Department | Care Team | Description | +--------+ + + + + | 07/11/ | Life Insurance Sales Agent | Otolaryngology | Steve, | T3N0 SCCa, right | | 2018 | | Laryngology Services | Yolande Casey PA-C | glottis (Primary Dx) | | | | at [facility] [address] | [address] | | | | | [address] [place], | [place], [place] | | | | | [place] [address] | [address] | | | | | [phone] | [phone] | | | | | | | [...] 2020 | Visit | | MD Sidney [address] | | | | | | [address] | | | | | | [place], [place] | | | | | | [address] | | | | | | [phone] | | | | | | | | +--------+---------+ + + + documented as of this encounter Visit Diagnoses + + | Diagnosis | + + | T3N0 SCCa, 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
--- OUTSIDE RECORDS SUMMARY | ~2019-10-09 | XMS | Encounter Summary ---
Demographics + + + | Address | [address] | | | [place] [address] | + + + | Home Phone | | + + + | Preferred Language | Unknown | + + + | Marital Status | | + + + | Jainism Affiliation | Unknown | + + + | Race | Unknown | + + + | Ethnic Group | Unknown | + + + Author + + + | Author | [facility] | | | and [place] | + + + | Organization | [facility] | | | [...] Team Providers + +------+ + | Care Skidway Man Name | Role | Phone | + [...] Brianna MAY | | | | | [phone] | [place] [address] | | +--------+ + + + + [...] [place] | | | | | | [address] | | | | | | | | +--------+ + + + + documented as of this encounter Procedures + +--------+ + + + | Procedure Name | Priori | Date/Time | Associated Diagnosis | Comments | | | ty | | | | + +--------+ + + + | CT SOFT TISSUE NECK | Routin | 12/15/2017 | | Results for this | | W CONTRAST | e | 1:25 PM | | procedure are in the | | | | PST | | results section. | + +--------+ + + + documented in this encounter Results CT Soft Tissue Neck w Contrast (12/15/2017 1:25 PM PST) + + | Specimen | + [...]
--- OUTSIDE RECORDS SUMMARY | ~2019-10-09 | XMS | Encounter Summary ---
Demographics + + + | Address | [address] | | | [place] [address] | + + + | Home Phone | | + + + | Preferred Language | Unknown | + + + | Marital Status | | + + + | Anabaptist Affiliation | Unknown | + + + | Race | Unknown | + + + | Ethnic Group | Unknown | + + + Author + + + | Author | [facility] | | | and [place] | + + + | Organization | [facility] | | [...] Team Providers + +------+ + | Care Nurse Clinical Name | Role | Phone | + [...] Dominguez MD | | | | | [place], | | | | | | [place] [address] | | | | | | [phone] | | | +--------+--------+ + + + [...] [place] | | | | | | [address] | | | | | | | | +--------+ + + + + documented as of this encounter Visit Diagnoses Not on filedocumented in this encounter"
--- OUTSIDE RECORDS SUMMARY | ~2019-10-09 | XMS | Encounter Summary ---
Demographics + + + | Address | [address] | | | [place] [address] | + + + | Home Phone | | + + + | Preferred Language | Unknown | + + + | Marital Status | | + + + | Jew Affiliation | NRP | + + + | Race | White | + + + | Ethnic Group | Not or | + + + Author + + + | Author | [facility] | + + + | Organization | [facility] | + + + | Address | Unknown | + + + | Phone | Unavailable | + + + Support + + + + + | Name | Relationship | Address | Phone | + + + + + | Cecile Chowdhury | ECON | [address] | | | | | [place] [address] | | + + + + + Care Team Providers + +------+ + | Care Liaison Officer Name | Role | Phone | [...] | Non [facility] | Diagnoses | Blanka | Isac, | | | | Department | Malignant | Pasquale Little | [address] | | | | | neoplasm of | [address] | MD Richard | | | | | glottis | [address] | [facility] | | | | | (HCC) | Asuncion Dover | [address] | | | | | Procedures | [place], [place] | [address] | | | | | CONSULT TO | [address] | Tony Alexis | | | | | NON - [facility] | Phone: | [place] | | | | | PROVIDER | [phone] | [address] Phone: | | | | | | Fax: | [phone] | | | | | | [phone] | Fax: | | | | | | | [phone] | +--------+--------+ + + + + Reason for Visit + + + | Reason | Comments | + + + | Lab Results | | + + + Encounter Details +--------+ + + + + | Date | Type | Department | Care Team | Description | +--------+ + + + + | 07/06/ | Telephone | Otolaryngology | Pasquale Moscoso | Lab Results | | 2017 | | Laryngology Services | MD Sidney [address] [facility] | | | | | at [facility] [address] | [address] | | | | | [place], | [place], [place] | | | | | [place] [address] | [address] | | | | | [phone] | [phone] | | | | | | | [...] 2020 | Visit | | MD Sidney [address] [facility] | | | | | | [address] | | | | | | [place], [place] | | | | | | [address] | | | | | | [phone] | | | | | | | | +--------+---------+ + + + documented as of this encounter Visit Diagnoses + + | Diagnosis | + + | T3N0 SCCa, 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
--- OUTSIDE RECORDS SUMMARY | ~2019-10-09 | XMS | Encounter Summary ---
Demographics + + + | Address | [address] | | | [place] [address] | + + + | Home Phone | | + + + | Preferred Language | Unknown | + + + | Marital Status | | + + + | Christianity Affiliation | NRP | + + + | Race | White | + + + | Ethnic Group | Not or | + + + Author + + + | Author | [facility] | + + + | Organization | [facility] | + + + | Address | Unknown | + + + | Phone | Unavailable | + + + Support + + + + + | Name | Relationship | Address | Phone | + + + + + | Cecile Chowdhury | ECON | [address] | | | | | [place] [address] | | + + + + + Care Team Providers + +------+ + | Care Membership Solicitor Name | Role | Phone | + [...] Rd | | | | | | [place], [place] | | | | | | [address] | | | +--------+ + + + [...] Visit | | MD Sidney [address] [facility] | | | | | | [address] | | | | | | [place], [place] | | | | | | [address] | | | | | | [phone] | | | | | | | | +--------+---------+ + + + documented as of this encounter Visit Diagnoses Not on filedocumented in this encounter"
--- OUTSIDE RECORDS SUMMARY | ~2019-10-09 | XMS | Encounter Summary ---
Demographics + + + | Address | [address] | | | [place] [address] | + + + | Home Phone [...] | | | | [place] [address] | | + + + + + Care Team Providers + +------+ + | Care Telegraph Office Route Aide Name | Role | Phone | + +------+ + | Daniel Cannon MD | PCP | | + +------+ + Encounter Details +--------+---------+ + + + | Date | Type | Department | Care Team | Description | +--------+---------+ + + + | 05/17/ | Office | Otolaryngology [facility] | Jonna Moreno, | Dysphonia (Primary | | 2018 | Visit | [facility] | [facility]-ASSUR[facility] OFFICER [address] | Dx); T3N0 SCCa, | | | | Swallowing at [facility] | [address] | right glottis; | | | | [address] | [place] [address] | Pharyngeal dysphagia | | | | Mailcode: [id number] | [phone] | | | | | [facility] | | | | | | and [place], | | | | | | Building | | | | | | Floor [place], [place] | | | | | | [address] | | | | | | [phone] | | | +--------+---------+ + + + [...] documented as of this encounter Progress Notes Jonna Moreno CCC-ASSURANCE OFFICER - 05/17/2018 10:00 AM PDT VOICE EVALUATION CLINIC: [facility] CLINIC DATE: 05/17/2018 REFERRING PHYSICIAN: Pasquale Moscoso MD PRIMARY DIAGNOSIS: 1. Dysphonia 2. T3N0 SCCa, right glottis 3. Pharyngeal dysphagia TREATMENT DIAGNOSIS: 1. Dysphonia 2. T3N0 SCCa, right glottis 3. Pharyngeal dysphagia DATE OF ONSET: 03/15/2018 START OF CARE: 05/17/2018 NUMBER OF SESSIONS: 1 REASON FOR REFERRAL: Ronni Chowdhury is a 47 year-old male patient of Dr. Pasquale Moscoso who returned to the [facility] for 3-month post-operative casimiro luation. 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 He returns today accompanied by his and reports that he is doing well. He has been decannulated and his PEG tube has been removed. He feels that his voice is "getting bet ter every day." He continues to note improvements in vocal loudness and endurance. He no andreina blayne shortens conversations due to his voice. He has started talking on the telephone and fee ls that most people are able to understand him. Voicing over background noise remains challe nging. No concerns regarding swallowing. He reports that he has resumed a regular diet with thin liquids and that he is "back to normal." He feels that his breathing has improved follo wing surgery and he is no longer using his daily asthma medications. Dr. Moscoso requested voice evaluation with stroboscopy as part of his 3-month follow-up today. This evaluation was completed in cooperation with Dr. Pasquale Moscoso M.D.. Please refer to his report for details regarding the medical diagnosis. VOCAL HYGIENE: The patient has returned to work. He reports that he continues to smoke. SINGING: The patient is not a bell and reports no singing related voice complaints at thi s time. PERCEPTUAL ASSESSMENT: The patient's voice was dysphonic characterized by a hoarse, strain ed, rough and breathy vocal quality. There were not audible spasms during phonation. The p atient's pitch was low for his age and gender. Loudness was within normal limits for 1:1 c onversation. Speech was within normal limits. Speech rate was within normal limits. Reson ance waswithin normal limits. Breathing pattern was thoracic. Breath support for speech wa s good. Coordination of breath and voice was fair. The patient's speech intelligibility wa s approximately 100%. The Consensus Auditory-Perceptual Evaluation of Voice (CAPE-V) was co mpleted with the following results: overall severity = 52/100, roughness = 55/100, breathine ss = 23/100, strain = 48/100, pitch = 20/100, loudness = 12/100, and resonance is normal. ACOUSTIC MEASURES: The laryngeal function studies were completed using the CS with a hand- held microphone with a 15cm luann to mouth distance. All measures were obtained using Real Jeffery e Pitch with the VRP button on with the energy shift at 19.5dB applied, with the exception o f the perturbation measures, which were completed using the ERN Advanced program. Maximum phonation time = 10 [...] sustained vowel and 73.25 dB in reading. LARYNGEAL EXAMINATION: The patient was identified by name and prior to initiation of th e procedure. Laryngoscopy was completed using the flexible distal chip telescope. The maria del rosario ent was sprayed with Lidocaine and Phenylephrine to the right nostril prior to the examinati on. The patient tolerated the procedure well. Anatomy consistent with his status post supra cricoid partial laryngectomy. The left arytenoid is intact and mobile. Phonation is achieved through movement of the left arytenoid to the mound of residual tissue of his right glottis . Glottic closure during phonation appears to be complete. The left vocal process is visible in the abducted position. SUMMARY: The patient presented with moderate-severe dysphonia s/p supracricoid partial lar yngectomy. He reports that his voice continues to improve and that he has resumed a regular diet. RECOMMENDATIONS/PLAN: Continue to follow-up per Dr. Moscoso's plan of care. Dr. Moscoso counseled the patient regarding smoking cessation. Jonna Moreno M.S., CCC-ASSURANCE OFFICER Speech-Language Pathologist [facility] Department of Otolaryngology [address] [place] [address] Appointments: documented in this encounter Plan of Treatment +--------+---------+ + + + | Date | Type | Specialty | Care Team | Description | +--------+---------+ + + + | 03/19/ | Office | Otolaryngology | Pasquale Moscoso | | | 2019 | Visit | | MD Sidney [address] [place] [address] | | | | | | [facility] | | | | | | [place], [place] | | | | | | [address] | | | | | | [phone] | | | | | | | | +--------+---------+ + + + documented as of this encounter Procedures + +--------+ + + + | Procedure Name | Priori | Date/Time | Associated Diagnosis | Comments | | | ty | | | | + +--------+ + + + | [facility] | Routin | 05/17/2018 | Dysphonia T3N0 | | | QUALITATIVE ANALYSIS | e | 12:41 PM | SCCa, right glottis | | | OF VOICE AND | | PDT | Pharyngeal | | | RESONANCE | | | dysphagia | | + +--------+ + + + | [facility] | Routin | 05/17/2018 | Dysphonia T3N0 | | | LARYNGOSCOPY,FLEX/RI | e | 12:41 PM | SCCa, right glottis | | | GID+STROBOSCOPY | | PDT | Pharyngeal | | | | | | dysphagia | | + +--------+ + + + documented in this encounter Visit Diagnoses + + | Diagnosis | + + | Dysphonia - Primary | + + | T3N0 SCCa, right glottis Malignant neoplasm of glottis | + + | Pharyngeal dysphagia Dysphagia, pharyngeal phase | + + documented in this encounter
--- OUTSIDE RECORDS SUMMARY | ~2019-10-09 | XMS | Encounter Summary ---
Demographics + + + | Address | [address] | | | [place] [address] | + + + | Home Phone | | + + + | Preferred Language | Unknown | + + + | Marital Status | | + + + | Jewish Affiliation | Unknown | + + + | Race | Unknown | + + + | Ethnic Group | Unknown | + + + Author + + + | Author | [facility] | | | and [place] | + + + | Organization | [facility] | | | [...] Team Providers + +------+ + | Care Health Care Facilities Inspector Name | Role | Phone | [...] Description | +--------+--------+ + + + | 05/24/ | Refill | [facility] [place] | [place], | Medication Refill | | 2016 | | PULMONARY [address] | Latisha Dominguez MD | | | | | [place], | | | | | | [place] [address] | | | | | | [phone] | | | +--------+--------+ + + + [...] | | | | | [facility] [place] | | | | | | [address] | | | | | | | | +--------+ + + + + documented as of this encounter Visit Diagnoses Not on filedocumented in this encounter"
--- OUTSIDE RECORDS SUMMARY | ~2019-10-09 | XMS | Encounter Summary ---
Demographics + + + | Address | [address] | | | [place] [address] | + + + | Home Phone | | + + + | Preferred Language | Unknown | + + + | Marital Status | | + + + | Synagogue Affiliation | NRP | + + + | Race | White | + + + | Ethnic Group | Not or | + + + Author + + + | Author | [facility] | + + + | Organization | [facility] | + + + | Address | Unknown | + + + | Phone | Unavailable | + + + Support + + + + + | Name | Relationship | Address | Phone | + + + + + | Cecile Chowdhury | ECON | [address] | | | | | [place] [address] | | + + + + + Care Team Providers + +------+ + | Care First Beater Name | Role | Phone | + [...] Description | +--------+--------+ + + + | 09/26/ | Refill | Otolaryngology | Lamin Osullivan, | Refill Request | | 2019 | | Head and Neck | PA-C [address] | | | | | Surgery Services at | [facility] | | | | | [address] | [place], [place] | | | | | [address] | [address] | | | | | Mailcode: [id number] | [phone] | | | | | [facility] | | | | | | [place], [place] | | | | | | [address] | | | | | | [phone] | | | +--------+--------+ + + + [...] Rd | | | | | | [place] | | | | | | [address] | | | | | | [phone] | | | | | | | | +--------+---------+ + + + documented as of this encounter Visit Diagnoses Not on filedocumented in this encounter"
--- OUTSIDE RECORDS SUMMARY | ~2019-10-09 | XMS | Encounter Summary ---
Demographics + + + | Address | [address] | | | [place] [address] | + + + | Home Phone [...] + + + | Author | [facility] | + + + | Organization | [facility] | + + + | Address | Unknown | + + + | Phone | Unavailable | + + + Support + + + + + | Name | Relationship | Address | Phone | + + + + + | Cecile Chowdhury | ECON | [address] | | | | | [place] [address] | | + + + + + Care Team Providers + +------+ + | Care Continuous Dryout Operator Helper Name | Role | Phone | + +------+ + | Daniel Cannon MD | PCP | | + +------+ + Encounter Details +--------+ + + + + | Date | Type | Department | Care Team | Description | +--------+ + + + + | 01/23/ | Pharmacy | Outpatient Retail | | | | 2017 | Visit | [facility] | | | | | | [address] | | | | | | [address] [place], [place] | | | | | | [address] | | | | | | [phone] | | | +--------+ + + + [...] 2020 | Visit | | MD Sidney [address] | | | | | | [address] | | | | | | [place], [place] | | | | | | [address] | | | | | | [phone] | | | | | | | | +--------+---------+ + + + documented as of this encounter Visit Diagnoses Not on filedocumented in this encounter"
--- OUTSIDE RECORDS SUMMARY | ~2019-10-09 | XMS | Encounter Summary ---
Demographics + + + | Address | [address] | | | [place] [address] | + + + | Home Phone | | + + + | Preferred Language | Unknown | + + + | Marital Status | | + + + | Restorationism Affiliation | NRP | + + + [...] | | | | [place] [address] | | + + + + + Care Team Providers + +------+ + | Care Strategic Consultant Name | Role | Phone | [...] [address] | | | | | | [place] | | | | | | [address] | | | | | | [phone] | | | | | | | | +--------+---------+ + + + documented as of this encounter Visit Diagnoses Not on filedocumented in this encounter"
--- OUTSIDE RECORDS SUMMARY | ~2019-10-09 | XMS | Encounter Summary ---
Demographics + + + | Address | [address] | | | [place] [address] | + + + | Home Phone | | + + + | Preferred Language | Unknown | + + + | Marital Status | | + + + | Spiritism Affiliation | NRP | + + + | Race | White | + + + | Ethnic Group | Not or | + + + Author + + + | Author | [facility] | + + + | Organization | [facility] | + + + | Address | Unknown | + + + | Phone | Unavailable | + + + Support + + + + + | Name | Relationship | Address | Phone | + + + + + | Cecile Chowdhury | ECON | [address] | | | | | [place] [address] | | + + + + + Care Team Providers + +------+ + | Care Catering Sales Manager Name | Role | Phone | [...] Mailcode: | | | | | | [place], [place] | [address] | | | | | | [address] | [facility] | | | | | | Phone: | and Healing, | | | | | | [phone] | Building [address], | | | | | | Fax: | 15th Floor | | | | | | [phone] | [place], [place] | | | | | | | [address] | | | | | | | Phone: | | | | | | | [phone] | | | | | | | Fax: | | | | | | | [phone] | +--------+--------+ + + + + Encounter Details +--------+ + + + + | Date | Type | Department | Care Team | Description | +--------+ + + + + | 02/06/ | Diagnostic | Otolaryngology | Steven Vidal, | | | 2018 | Visit | Speech Therapy | HEAD CHARGER [address] | | | | | Services at [facility] | [facility] | | | | | [address] | [place] [address] | | | | | Loop Mailcode: PV01 | [phone] | | | | | Physician's | | | | | | [place], | | | | | | [place] [address] | | | | | | [phone] | | | +--------+ + + + [...] of this encounter Patient Instructions Patient Instructions Steven Vidal, LESTER - 02/06/2018 10:00 AM PDTSWALLOWING THERAPY SAFETY SWALLOW: 1. Put some food or liquid in your mouth 2. Tuck your chin DOWN 3. Take a deep breath in through your nose 4. Hold your breath TIGHTLY at the level of your throat and 5. SWALLOW HARD 6. Clear your throat 7. Swallow again With practice this becomes automatic & natural! EATING PROGRAM: ? What do I eat? o Patterson purees: e.g. yogurt, ice cream, apple-sauce, milkshakes, cream soups. ? How much? o You can have a MAXIMUM of 5 bites every hour. ? What are the things to watch out for? o Fevers, chills, night-sweats, wheezing, shortness of breath, increased coughing. ? What should I do if these happen? o Stop taking anything at all until your [...] ises and when eating. documented in this encounter Progress Notes Steven Vidal, LESTER - 02/06/2018 10:00 AM PDTFormatting of this note might be different fro m the original. Clinic: [facility] Referring Physician: Pasquale [...] from OP pre-operative evaluation and voice evaluation. The patient is now s/p the followi ng on 01/16/18: direct microlaryngoscopy, upper GI endoscopy with percutaneous endogastric tub e placement, supracricoid partial laryngectomy sparing left arytenoid, cricohyoidoepiglottop exy, rightmodified radical neck dissection, tracheotomy tube placement. The patient attends today's visit with his , Cecile. He was seen also with Bernie Fang, Speech Pathology application development intern. INTERVAL HISTORY: No new issues. Reports TFs going OK. No suctioning needed - clearing secr etions via mouth. Per the DC summary: Brief Hospital Course: [...] for the rest of the hospitalization. His post operative course was complicated by alcohol withdrawal (CIWA protocol, resolved), and acute on chronic pain (close follow up with his [facility] doctor). The patient had stable respiratory status [...] 01/05/18 104.3 kg (230 lb) COMMUNICATION STATUS: Seen by Dr. Moscoso who changed his tracheotomy tubeto a new #4 S addison [facility] tracheotomy tube and plugged it. Voice hoarse and reduced in intensity but basical ly functional for communication in quiet setting DIETARY STATUS: PEG for all nutrition/hydration/medication. Prior to admission the patient was eating a regular diet with no restriction or complaints. CLINICAL SWALLOW TRIALS: Trials with ice chips and orange sherbert using safety swallow wit h chin tuck. Pt consistent in use of strategy. No s/s of aspiration. Able to do 5 bites of s elyssa with good success. PATIENT EDUCATION & TREATMENT:Home exercise program initiated - see below. ASSESSMENT: 1. Functional written communication. Voice moderately dysphonic. 2. NPO + PEG. Upgraded to therapeutic diet of ice chips and purees. 3. Trach plugging as tolerated. PLAN: Follow-up for possible decannulation on 02/[address] Mueller. Steven Vidal, PhD, CCC-HEAD CHARGER [facility] [place] Dept. of Otolaryngology, [address] [place] [address] SWALLOWING THERAPY SAFETY SWALLOW: 1. Put some food or liquid in your mouth 2. Tuck your chin DOWN 3. Take a deep breath in through your nose 4. Hold your breath TIGHTLY at the level of your throat and 5. SWALLOW HARD 6. Clear your throat 7. Swallow again With practice this becomes automatic & natural! EATING PROGRAM: ? What do I eat? o Patterson purees: e.g. yogurt, ice cream, apple-sauce, milkshakes, cream soups. ? How much? o You can have a MAXIMUM of 5 bites every hour. ? What are the things to watch out for? o Fevers, chills, night-sweats, wheezing, shortness of breath, increased coughing. ? What should I do if these happen? o Stop taking anything at all until your [...] 2019 | Visit | | MD Sidney [address] | | | | | | [address] | | | | | | [place], [place] | | | | | | [address] | | | | | | [phone] | | | | | | | | +--------+---------+ + + + documented as of this encounter Procedures + +--------+ + + + | Procedure Name | Priori | Date/Time | Associated Diagnosis | Comments | | | ty | | | | + +--------+ + + + | AL EVAL,ORAL & | Routin | 02/06/2018 | T3N0 SCCa, right | | | PHARYNGEAL SWALLOW | e | 5:24 PM | glottis Dysphonia | | | FUNCTION | | PDT | Dysphagia, | | | | | | pharyngeal phase | | | | | | Attention to | | | | | | tracheostomy (HCC) | | + +--------+ + + + documented in this encounter Visit Diagnoses + + | Diagnosis | + + | T3N0 SCCa, 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
--- OUTSIDE RECORDS SUMMARY | ~2019-10-09 | XMS | Encounter Summary ---
Demographics + + + | Address | [address] | | | [place] [address] | + + + | Home Phone [...] Providers + +------+ + | Care Machine Room Operator Name | Role | Phone | + +------+ + PCP | Unavailable | + +------+ + Encounter Details +--------+ + + + + | Date | Type | Department | Care Team | Description | +--------+ + + + + | 11/29/ | Hospital | [facility] | | | | 1995 | Encounter | MED CTR EMERGENCY | | | | | | CENTER [address] | | | | | | [place] | | | | | | [address] | | | | | | [phone] | | | +--------+ + + + [...] [place] | | | | | | [address] | | | | | | | | +--------+ + + + + documented as of this encounter Visit Diagnoses Not on filedocumented in this encounter"
--- OUTSIDE RECORDS SUMMARY | ~2019-10-09 | XMS | Encounter Summary ---
Demographics + + + | Address | [address] | | | [place] [address] | + + + | Home Phone | | + + + | Preferred Language | Unknown | + + + | Marital Status | | + + + | Adventism Affiliation | Unknown | + + + [...] Team Providers + +------+ + | Care Automobile Body Repair Supervisor Name | Role | Phone | [...] + + | 01/16/ | Office | [facility] | Ena Francis | Dermatitis (Primary | | 2012 | Visit | [facility] [address] | [address] | Dx) | | | | [facility] | [facility] [place] | | | | | [place] | [address] | | | | | [address] | | | | | | [phone] | | | +--------+---------+ + + + [...] Progression since onset: Pt was seen at [facility] and put on bactrim and bactrob an [...] | | | | | | [place], [place] | | | | | | [address] | | | | | | | | +--------+ + + + + documented as of this encounter Visit Diagnoses + + | Diagnosis | + + | Dermatitis - Primary Contact dermatitis and other eczema, due to unspecified cause | + + documented in this encounter
--- OUTSIDE RECORDS SUMMARY | ~2019-10-09 | XMS | Encounter Summary ---
Demographics + + + | Address | [address] | | | [place] [address] | + + + | Home Phone | | + + + | Preferred Language | Unknown | + + + | Marital Status | | + + + | Religion Affiliation | Unknown | + + + | Race | Unknown | + + + | Ethnic Group | Unknown | + + + Author + + + | Author | [facility] | | | and [place] | + + + | Organization | [facility] | | [...] Team Providers + +------+ + | Care Truck Trailer Final Inspector Name | Role | Phone | + +------+ + PCP | Unavailable | + +------+ + Encounter Details +--------+ + + + + | Date | Type | Department | Care Team | Description | +--------+ + + + + | 07/23/ | Hospital | [facility] | Celso Marino MD | | | 2004 | Encounter | MED CTR MP INTRA OP | [address] [place] | | | | | [address] | [address] [place], | | | | | [place], [place] | [place] [address] | | | | | [address] | [phone] | | | | | [phone] | | | +--------+ + + + [...] [place] | | | | | | [address] | | | | | | | | +--------+ + + + + documented as of this encounter Visit Diagnoses Not on filedocumented in this encounter"
--- OUTSIDE RECORDS SUMMARY | ~2019-10-09 | XMS | Encounter Summary ---
Demographics + + + | Address | [address] | | | [place] [address] | + + + | Home Phone | | + + + | Preferred Language | Unknown | + + + | Marital Status | | + + + | Anglican Affiliation | Unknown | + + + | Race | Unknown | + + + | Ethnic Group | Unknown | + + + Author + + + | Author | [facility] | | | and [place] | + + + | Organization | [facility] | | | [...] Team Providers + +------+ + | Care Environmental Inspector Name | Role | Phone | + +------+ + | Daniel Cannon MD | PCP | | + +------+ + Encounter Details +--------+ + + + + | Date | Type | Department | Care Team | Description | +--------+ + + + + | 07/22/ | Hospital | [facility] | Naida Burnette | | | 2018 | Encounter | MED CTR RADIATION | MD Brad [address] | | | | | ONCOLOGY [address] [place] | | | | | [place], | [address] | | | | | [place] [address] | | | | | | [phone] | | | +--------+ + + + [...]
--- OUTSIDE RECORDS SUMMARY | ~2019-10-09 | XMS | Encounter Summary ---
Demographics + + + | Address | [address] | | | [place] [address] | + + + | Home Phone | | + + + | Preferred Language | Unknown | + + + | Marital Status | | + + + | Muslim Affiliation | NRP | + + + | Race | White | + + + | Ethnic Group | Not or | + + + Author + + + | Author | [facility] | + + + | Organization | [facility] | + + + | Address | Unknown | + + + | Phone | Unavailable | + + + Support + + + + + | Name | Relationship | Address | Phone | + + + + + | Cecile Chowdhury | ECON | [address] | | | | | [place] [address] | | + + + + + Care Team Providers + +------+ + | Care Press Operator Printing Name | Role | Phone | + [...] | | | | | | [place] | | | | | | [address] [place], [place] | | | | | | [address] | | | | | | [phone] | | | +--------+ + + + [...] + + + | Drain | 01/16/18; 3109; MD Blanka; DERRICK | 01/16/18 1559 by [...] perfume, lotions or powder. Remove any nail tanzanian from at least one fingernail. Do not [...] your procedure. Surgery Check in Locations Admitting [facility] ninth floor [facility] Surgery Check in Time: Someone from your surgeon's office or [facility] will provide you with information regarding [...] it is after office hours, call the [facility] thermoforming machine operator at [phone] and ask them to page your doc tor. documented in this encounter Plan of Treatment +--------+---------+ + + + | Date | Type | Specialty | Care Team | Description | +--------+---------+ + + + | 03/19/ | Office | Otolaryngology | Pasquale Moscoso | | | 2020 | Visit | | MD Sidney [address] | | | | | | [address] | | | | | | [place] | | | | | | [address] | | | | | | [phone] | | | | | | | | +--------+---------+ + + + documented as of this encounter Visit Diagnoses Not on filedocumented in this encounter"
--- OUTSIDE RECORDS SUMMARY | ~2019-10-09 | XMS | Encounter Summary ---
Demographics + + + | Address | [address] | | | [place] [address] | + + + | Home Phone | | + + + | Preferred Language | Unknown | + + + | Marital Status | | + + + | Shinto Affiliation | Unknown | + + + | Race | Unknown | + + + | Ethnic Group | Unknown | + + + Author + + + | Author | [facility] | | | and [place] | + + + | Organization | [facility] | | | and [...] Team Providers + +------+ + | Care Pattern Generator Operator Name | Role | Phone | [...] | cancer (HCC) | [address] | [place], | | | | | Procedures | [address] | [place] [address] | | | | | [place] | [place], | Phone: | | | | | Treatment | [place] [address] | [phone] | | | | | Plan Complex | Phone: | Fax: | | | | | | [phone] | [phone] | | | | | | Fax: | | | | | | | [phone] | | +--------+--------+ + + + + [...] [address] | | | | | HI OFFICE | [address] | [address] | | | | | OUTPATIENT | [place] | [place], | | | | | [address] | [place], [place] | [place] [address] | | | | | MINUTES | [address] | Phone: | | | | | | Phone: | [phone] | | | | | | [phone] | Fax: | | | | | | Fax: | [phone] | | | | | | [phone] | | +--------+ + + + + + Encounter Details +--------+ + + + + | Date | Type | Department | Care Team | Description | +--------+ + + + + | 07/19/ | Hospital | [facility] | Naida Burnette | Larynx cancer (HCC) | | 2018 | Encounter | MED CTR RADIATION | MD Brad [address] | (Primary Dx); | | | | ONCOLOGY CLINIC [address] | [facility] [place] | Malignant neoplasm | | | | [address] | [address] | of glottis (HCC) | | | | [place] [address] | | | | | | [phone] | | | +--------+ + + + [...] | | | | | | | Mabel [address] | | | | | | [...] with contrast performed on 12/15/17 at the [facility] noted fullness in the retropharyngeal soft tissue, without discrete area of enhancement. Fullness in the r ight vocal cord. No enlarged or abnormal appearing cervical lymph nodes. Visualized portio n of the lungs clear. -Referred to Dr. Moscoso at [facility], who ultimately performed a supracricoid partial larynge [...] and painful. CT neck on 05/29/18 at [facility] demonstrated an abscess and raised concern for loc al recurrence of tumor as well. Lesion was treated at [facility] with I&D and antibiotics on 05/29. F/U [...] I also encouraged Ronni to work at [employer] back or discontinuing tobacco and alcohol use. [...] M.D. Radiation Oncologist Department of Radiation Oncology [facility] Office: [phone] CC: Patient Care Team: Daniel Cannon MD [...] [place] | | | | | | [address] | | | | | | | [...]
--- OUTSIDE RECORDS SUMMARY | ~2019-10-09 | XMS | Encounter Summary ---
Demographics + + + | Address | [address] | | | [place] [address] | + + + | Home Phone | | + + + | Preferred Language | Unknown | + + + | Marital Status | | + + + | Sabianist Affiliation | NRP | + + + [...] | | | | [place] [address] | | + + + + + Care Team Providers + +------+ + | Care Compressor Mechanic Bus Name | Role | Phone | + [...] | | | | neoplasm of | [address] | MD Richard | | | | | glottis | [place] | [facility] | | | | | (HCC) | [place] | [address] | | | | | Procedures | [place], [place] | [address] | | | | | CONSULT TO | [address] | Tony Alexis | | | | | NON - [facility] | Phone: | [place] | | | | | PROVIDER | [phone] | [address] Phone: | | | | | | Fax: | [phone] | | | | | | [phone] | Fax: | | | | | | | [phone] | +--------+--------+ + + + + Reason [...] | | Laryngology Services | MD Sidney [address] [facility] | | | | | at [facility] [address] | [address] | | | | | [place], | [place], [place] | | | | | [place] [address] | [address] | | | | | [phone] | [phone] | | | | | | | [...] 2020 | Visit | | MD Sidney [address] [facility] | | | | | | [address] | | | | | | [place], [place] | | | | | | [address] | | | | | | [phone] | | | | | | | [...]
--- OUTSIDE RECORDS SUMMARY | ~2019-10-09 | XMS | Encounter Summary ---
Demographics + + + | Address | [address] | | | [place] [address] | + + + | Home Phone | | + + + | Preferred Language | Unknown | + + + | Marital Status | | + + + | Bahai Affiliation | Unknown | + + + | Race | Unknown | + + + | Ethnic Group | Unknown | + + + Author + + + | Author | [facility] | | | and [place] | + + + | Organization | [facility] | | [...] Team Providers + +------+ + | Care Best Worker Name | Role | Phone | [...] Description | +--------+---------+ + + + | 01/22/ | Office | [facility] | [place], | Asthma, moderate | | 2015 | Visit | PULMONARY [address] | Latisha Dominguez MD | persistent, | | | | [place], | | uncomplicated | | | | [place] [address] | | (Primary Dx); | | | | [phone] | | Tobacco abuse; Need | | | | | | for influenza | | | | | | vaccination | +--------+---------+ + + + Social History [...] + | Tobacco Cessation: Ready to Quit: Yes; Counseling Given: Yes | | Comments: he is smoking slightly more than a ppd | + + + + +---------+ + [...] + + + | Blood Pressure | 142/90 | 11/07/2014 3:59 PM | | | | | PST | | + + + + + | Pulse | 87 | 11/07/2014 3:59 PM | | | | | PST | | + + + + + | Temperature | - | - | | + + + + + | Respiratory Rate | - | - | | + + + + + | Oxygen Saturation | 96% | 11/07/2014 3:59 PM | | | | | PST | | + + + + + | Inhaled Oxygen | - | - | | | Concentration | | | | + + + + + | Weight | 103.2 kg (227 lb 8 | 11/07/2014 3:59 PM | | | | oz) | PST | | + + + + + | Height | 188 cm (6' 2") | 11/07/2014 3:59 PM | | | | | PST | | + + + + + | Body Mass Index | 29.21 | 11/07/2014 3:59 PM | | | | | PST | | + + + + + documented in this encounter Patient Instructions Patient Instructions Latisha Anaya MD - 11/07/2014 4:38 PM PSTI would start with the 21mg nicotine patch. Use this daily for 2 weeks, then drop to the 14mg patch. Once you h ave used these for 4 weeks, call and we can order the 7mg patches. Set a plan in place for quitting and getting rid of everything that reminds you have smokin g. Clean everything in the house and shop and car. Set your quit date, and then start on pati t date. Have a back up plan in place for what you will do when you get cravings for cigarettes: victor manuel l someone, go for a walk, use mints. Stay on the Advair 500mcg dose. When you first quit smoking, you may notice initially more cough and mucous production. Let me know if this is an issue. We can give you some prednisone. Drinking adequate water helps . documented in this encounter Progress Notes Latisha Anaya MD - 11/07/2014 4:19 PM PSTFormatting of this note might be differe nt from the original. Pulmonary Follow Up Note HPI Ronni Chowdhury is a 43 y.o. male patient of Daniel Cannon here today for follow up of a [facility]. At their last visit, we had reincreased his Advair to the 500mcg dose. They return today f or routine follow up. Since last seen, he feels like their shortness of breath and wheezing has been close to the same, to possibly slightly better. He notes he had a virus around [place] time. He had a headache, nasal congestion. He did not have any change in his respiratory symptoms. He has not required a course of prednisone for treatment. He has not been seen in the emergency [facility]. His controller regimen consists of Advair 500mcg 1 inhalation twice daily. He currently use s their albuterol 2 times a week. He has not been waking up at night with shortness of breat h or wheezing. He does have a chronic cough, and does produce sputum chronically. He does not pay attentio n to the color of his mucous. He does have symptoms of nasal congestion, rhinorrhea and post nasal drip. He is not on for treatment of this. He does not have symptoms of heartburn or acid reflux and does not take medication for nereida tment of this. This has gone away and so he stopped the ranitidine. He is currently smoking slightly more than a pack a day. He is now ready to commit to quitt ing. He previously used the patch and it did help him quit. Past Medical History Past Medical History Diagnosis Date Asthma Allergy to cats Jaw fracture (HCC) Tobacco abuse Past Surgical History Past Surgical History Procedure Date Nasal septum surgery repair Social History: History Social History Marital Status: Spouse Name: N/A Number of Children: N/A Years of Education: N/A Social History Main Topics Smoking status: Current Every Day Smoker -- 1.0 packs/day for 23 years Types: Cigarettes Smokeless tobacco: Never Used Alcohol Use: 21.0 oz/week 42 drink(s) per week Comment: 6 pack per night Drug Use: No Sexually Active: None Other Topics Concern None Social History Narrative None Allergies: Allergies Allergen Reactions Clindamycin Medications: Outpatient Encounter Prescriptions as of 11/07/2014 Medication Sig Dispense Refill albuterol (PROAIR HFA) 90 mcg/puff inhaler Inhale 2 puffs into the lungs every 4 hours as needed for Wheezing. 1 Inhaler 6 fluticasone-salmeterol (ADVAIR DISKUS) 500-50 mcg/puff diskus inhaler Inhale 1 puff int o the lungs 2 times daily. 1 each 11 ranitidine (ZANTAC) 150 MG capsule Take 1 capsule by mouth every evening. 30 capsule 11 Objective BP 142/90 | Pulse 87 | Ht 1.88 m (6' 2") | Wt 103.193 kg (227 lb 8 oz) | BMI 29.20 kg/m2 | SpO2 96% General Appearance: Alert, cooperative, no distress, appears stated age Head: Normocephalic, without obvious abnormality, atraumatic Eyes: PERRL, conjunctiva clear, no scleral icterus, EOM's intact Ears: Normal TM's, external auditory canals, normal acuity Nose: Nares normal, septum midline, mucosa mildly edematous Mouth: No oral lesions or exudate Neck: [...] normal Data: Immunization History Administered Date(s) Administered PNEUMOCOCCAL POLYSACCHARIDE 23-VALENT (PPSV23) 04/25/2014 TD W/PRESERVATIVE, (ADOL/ADULT) 07/03/2012 TRIVALENT INFLUENZA, PRESERATIVE FREE (PED/ADOL/ADULT) 09/18/2012, 07/17/2013 Assessment 1. Asthma, moderate persistent, uncomplicated - Control at goal on Advair 500mcg dose. Had one viral illness without an exacerbation. We will continue this dose. 2. Tobacco abuse - Ongoing and feels ready to quit. We spent quite a bit of time discussing methods of quitting. The patch worked for him before, so I suggested trying this again, but staying on it longer. I ordered the 21mg patch and then the 14mg patch for 2 weeks then 4 w eeks, then we can drop to the 7mg patch. We discussed strategies for quitting as well. We wi ll recheck in 2 months and if not successful, we can consider using Chantix. 3. Need for influenza vaccination - Given today. Plan 1.Continue Advair 500mcg dose. 2.Start nicotene patch 21mg dose, then taper to 14mg patch. Counseling done on smoking cess ation. 3.Influenza vaccine was given today. 35 minutes were spent with Mr. Chowdhury with greater than 50% spent in counseling and coordina tion of care regarding asthma and smoking cessation. He was advised to call if new pulmonary symptoms were to develop. Return to clinic in 2 months, or sooner with concerns. CC: Daniel Cannon Portions of this report were transcribed using voice recognition software. Every effort wa s made to ensure accuracy; however, inadvertent computerized memorial marker designer errors may be pre sent. documented in t his encounter Plan of Treatment +--------+ + + + + | Date | Type | Specialty | Care Team | Description | +--------+ + + + + | 01/01/ | Appointment | Radiation Oncology | Naida Burnette | | | 2019 | | | MD [address] | | | | | | [place], [place] | | | | | | [address] | | | | | | | | +--------+ + + + + documented as of this encounter Visit Diagnoses + + | Diagnosis | + + | Asthma, moderate persistent, uncomplicated - Primary | + + | Tobacco abuse Tobacco use disorder | + + | Need for influenza vaccination Need for prophylactic vaccination and inoculation | | against influenza | + + documented in this encounter
--- OUTSIDE RECORDS SUMMARY | ~2019-10-09 | XMS | Encounter Summary ---
Demographics + + + | Address | [address] | | | [place] [address] | + + + | Home Phone | | + + + | Preferred Language | Unknown | + + + | Marital Status | | + + + | Latter Day Affiliation | NRP | + + + | Race | White | + + + | Ethnic Group | Not or | + + + Author + + + | Author | [facility] | + + + | Organization | [facility] | + + + | Address | Unknown | + + + | Phone | Unavailable | + + + Support + + + + + | Name | Relationship | Address | Phone | + + + + + | Cecile Chowdhury | ECON | [address] | | | | | [place] [address] | | + + + + + Care Team Providers + +------+ + | Care Sorting Cows Worker Name | Role | Phone | [...] | | | | Val Velasquez | [address] | WITH BIOPSY, | | | | Ambulatory Surgery | [place], [place] | | | | | Admitting Desk | [address] | | | | | Located on the 4th | [phone] | | | | | floor, Room [facility] | | | | | | [place], [place] | | | | | | [address] | | | +--------+---------+ + + + [...] for further guidance regarding this medication. Available uern-nyc-kghoeno. CHANGE how you take these medications acetaminophen [...] exceed more than 4g per day. Available kzzc-jck-lldlbgi. You have been taking this medication, 1000 [...] for further guidance regarding this medication. Available rtfw-unh-mzalypd. CONTINUE taking these medications albuterol 90 mcg/actuation [...] contact your local doctor Daniel Cannon MD ([facility]) for drain removal. Protocol for drain removal if <30 ml within 24 hrs. 07/10/2018 9:00 AM Steven GONZALEZ Otolaryngolo 07/10/2018 9:45 AM MD POLINA Hampton 07/21/2018 11:15 AM MD DEVANTE Hampton [place] HOW TO REACH US: Tuesday- Tuesday from 8:00am to 4:30pm, call the Otolaryngology clinic at [phone]. After hours, weekends, and holidays, call the [facility] eyelet operator at [phone] and as k to have the ENT [...] Discharging Physician: LAMIN OSULLIVAN PA-C Attending Physician: Paqsuale Moscoso MD I spent 63 minutes in the care of this patient. Greater than 50% of the time was spent cou nseling and coordination of care, including physical examination, wound management and coord inating follow-up appointment. LAMIN OSULLIVAN PA-C Department of Otolaryngology/Head and Neck Surgery Mail Code [address] [place] [address] Pager [phone] Consult/Night/Weekend Pager: [phone] documented in this encounter Discharge Instructions Instructions Patti Hugo RN - 06/21/2018Patient Education Materials: when to victor manuel reid MD, discharge paperwork, medications Additional Instructions: incision care, Dysphagia diet Learning About the Diet for Swallowing Problems What are swallowing problems? Difficulty swallowing is also called dysphagia (say "plf-TLP-epz-uh"). It is most often a s ign [...] and how thick to make the liquids. [place]-thick liquids leave a thin coating when they [...] Diet for Swallowing Problems", log into your [employer] account at [email or web address]. You can enter R741 in the "[employer] Library" search box. Not on Solaicx? Review the S[employer]icx section of your After Visit Summary for directions on red dillard to sign up. Current as of: September 05, 2017 Content Version: .20050515-2326 [employer]. Care instructions adapted under license by [facility] [employer]. If you have questions about a medical condition or this instr uction, always ask your healthcare professional. [employer] disclaims any carlos anty or liability for [...] "Learning About Swallowing Problems", log into your Solaicx account at [email or web address]. You can enter D018 in the "[employer] Library" search box. Not on Solaicx? Review the SOMNIUM Technologieshart section of your After Visit Summary for directions on ho w to sign up. Current as of: September 05, 2017 Content Version: 11.7 6835-0948 [employer]. Care instructions adapted under license by [facility]. If you have questions about a medical condition or this instr uction, always ask your healthcare professional. [employer] disclaims any carlos anty or liability for your use of this information. Discharge Nurse: Patti Hugo RN Date: 06/21/2018 Discharge Time: 8:43 AM AttachmentsThe following attachments cannot be sent through Care Everywhere.Post-op Infecti on (Ivorian)documented in this encounter Medications at Time of [...] follow-up with Dr. Moscoso in 1 m [facility]. No other needs at this time. Steven Vidal, PhD, [facility] [employer] Dept. of Otolaryngology, [address] [place] [address] do cumented in this encounter Plan of [...] Rd | | | | | | [place], [place] | | | | | | [address] | | | | | | [phone] | | | | | | | [...] ve | 3:46 PM | of glottis ([facility]) | | | | Surgic | PDT [...] ve | 3:46 PM | of glottis ([facility]) | | | | Surgic | PDT [...] ve | 3:46 PM | of glottis ([facility]) | | | [place], | Surgic | [...] NAME: | | | Ronni Chowdhury MR#: [id number] : 1970 Date: 06/20/2018 | | | Attending Surgeon: Pasquale Moscoso M.D. Coding Team Lead(s): | | | Augustine Leal MD; Lyndsey [...] procedure. Pasquale Moscoso M.D. | | | [facility] Tel:[phone] | | | [phone] | | + + + DIRECT LARYNGOSCOPY WITH BIOPSY WITH MICROSCOPE (06/20/2018 6:50 PM PDT) + + + | Narrative | Performed At | + + + | Pasquale Moscoso MD 06/22/2018 2:42 PM PATIENT NAME: | | | Ronni Chowdhury MR#: [id number] : 1970 Date: 06/20/2018 | | | Attending Surgeon: Pasquale Moscoso M.D. Coding Team Lead(s): | | | Augustine Leal MD; Lyndsey [...] procedure. Pasquale Moscoso M.D. | | | [facility] Tel:[phone] | | | [phone] | | + + + CULTURE, WOUND [...] | + + + + + | [place] [facility] - | [address] | [place] [address] | | | [facility] | | | | + + + [...] number | | | | | | [id number]. Throat, | | | | | | [...] | + + + + + | [facility] | [address] | [place] [address] | | | PATHOLOGY | [address] [...]
--- OUTSIDE RECORDS SUMMARY | ~2019-10-09 | XMS | Encounter Summary ---
Demographics + + + | Address | [address] | | | [place] [address] | + + + | Home Phone | | + + + | Preferred Language | Unknown | + + + | Marital Status | | + + + | Amish Affiliation | Unknown | + + + | Race | Unknown | + + + | Ethnic Group | Unknown | + + + Author + + + | Author | [facility] | | | and [place] | + + + | Organization | [facility] | | | [...] Team Providers + +------+ + | Care Astrobiologist Name | Role | Phone | + [...] + + | 09/21/ | Hospital | [facility] | Jason Gamble DO | Malignant neoplasm | | 2018 | Encounter | MED CTR RADIATION | [address] | of glottis (HCC) | | | | ONCOLOGY CLINIC [address] | [place], [place] | (Primary Dx) | | | | [address] | [address] | | | | | [place] [address] | | | | | | [phone] | Naida Burnette, | | | | | | MD [address] | | | | | | [place], [place] | | | | | | [address] | | | | | | | [...] + + + | Blood Pressure | 135/75 | 09/21/2018 9:59 AM | | | | | PST | | + + + + + | Pulse | 98 | 09/21/2018 9:59 AM | | | | | PST | | + + + + + | Temperature | 36.6 C (97.9 F) | 09/21/2018 9:59 AM | | | | | PST | | + + + + + | Respiratory Rate | 16 | 09/21/2018 9:59 AM | | | | | PST | | + + + + + | Oxygen Saturation | 98% | 09/21/2018 9:59 AM | | | | | PST | | + + + + + | Inhaled Oxygen | - | - | | | Concentration | | | | + + + + + | Weight | 97.2 kg (214 lb 4.6 | 09/21/2018 9:59 AM | | | | oz) | PST | | + + + + + | Height | - | - | | + + + + + | Body Mass Index | 27.5 | 07/19/2018 12:34 PM | | | [...] Progress Notes Naida Burnette MD - 09/21/2018 10:01 AM PST Radiation Oncology Weekly On Treatment Note Diagnosis: ICD-10-CM ICD-9-CM 1. 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 63 capsule 0 sjnaminophFJYMH-byqatlvcg-hvkdopus & magnesium hydroxide-simethicone (MAGIC MOUTHWASH) Swish and [...] facility-administered medications on file prior to encounter. 09/21/18 1000 Gastrointestinal Constipation 0 - Grade 0 Diarrhea 0 - Grade 0 Nausea 0 - Grade 0 Vomiting 0 - Grade 0 General Disorders and Administration Site Conditions Fatigue 1 - Grade 1 Performance Status Karnofsky Performance Score 80% Pain assessment: Location: thraot Pain Level: PAIN PROG PAIN LEVEL: 2 Pain Quality: Constant Current pain regimen: oxycodone Wt Readings from Last 3 Encounters: 09/21/18 97.2 kg (214 lb 4.6 oz) 09/14/18 96.6 kg (212 lb 15.4 oz) 09/06/18 98.2 kg (216 lb 7.9 oz) Vitals: 09/21/18 0959 BP: 135/75 Pulse: 98 Resp: 16 Temp: 36.6 C (97.9 F) TempSrc: Temporal SpO2: 98% Weight: 97.2 kg (214 lb 4.6 oz) Physical Exam Constitutional: He appears well-developed and well-nourished. HENT: Hoarse voice. Decreased size of abscess area, seems of fibrotic tissue at this point, no w armth. Neurological: He is alert. Skin: No rash noted. There is erythema (Deep erythema, no desquamation). Psychiatric: He has a normal mood and affect. Physician Assessment: Ronni completes radiation today. He has done very well. Continues to eat normally with mi ld odynophagia. Weight is stable. Voice is very breathy. Area of prior abscess slightly smal ler, does not appear inflamed. He is tolerating amoxicillin well, takes imodium to counter a ct diarrhea. Toxicities reviewed in nursing note. Disposition: completed treatment as planned. - Consult with ID physician pending, in the interim continue amoxicillin. - Follow-up with Dr. Moscoso within the next few months. Anticipate surveillance visits to alternate between us on at least an every 3 month basis. - Post-radiation CT with contrast and clinical follow-up with me in 3 months. 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
--- OUTSIDE RECORDS SUMMARY | ~2019-10-09 | XMS | Encounter Summary ---
Demographics + + + | Address | [address] | | | [place] [address] | + + + | Home Phone | | + + + | Preferred Language | Unknown | + + + | Marital Status | | + + + | Christian Affiliation | Unknown | + + + | Race | Unknown | + + + | Ethnic Group | Unknown | + + + Author + + + | Author | [facility] | | | and [place] | + + + | Organization | [facility] | | | [...] Team Providers + +------+ + | Care Director Nursing Service Name | Role | Phone | + +------+ + | Daniel Cannon MD | PCP | | + +------+ + Encounter Details +--------+ + + + + | Date | Type | Department | Care Team | Description | +--------+ + + + + | 09/11/ | Documentati | [facility] | Lori Tate | | | 2018 | on | MED CNT ONCOLOGY | A, OT | | | | | THERAPY [address] | | | | | | [place], | | | | | | [place] [address] | | | | | | [phone] | | | +--------+ + + + [...] Tate, OT - 09/11/2018 9:51 [facility] [address] [place] [address] Oncology Rehab Screening Date: 09/11/2018 Patient Information [...] [place] | | | | | | [address] | | | | | | | | +--------+ + + + + documented as of this encounter Visit Diagnoses Not on filedocumented in this encounter"
--- OUTSIDE RECORDS SUMMARY | ~2019-10-09 | XMS | Encounter Summary ---
Demographics + + + | Address | [address] | | | [place] [address] | + + + | Home Phone | | + + + | Preferred Language | Unknown | + + + | Marital Status | | + + + | Congregational Affiliation | NRP | + + + [...] | | | | [place] [address] | | + + + + + Care Team Providers + +------+ + | Care Director Of Materials Management Name | Role | Phone | + [...] | | Procedures | [address] | [facility] | | | | | CONSULT TO | [place], [place] | Stan[place], | | | | | ENT GENERAL | [address] | [place] | | | | | | Phone: | [address] | | | | | | [phone] | Phone: | | | | | | Fax: | [phone] | | | | | | [phone] | Fax: | | | | | | | [phone] | +--------+--------+ + + + + Encounter Details +--------+---------+ + + + | Date | Type | Department | Care Team | Description | +--------+---------+ + + + | 03/15/ | Office | Otolaryngology | Pasquale Moscoso | T3N0 SCCa, right | | 2018 | Visit | Laryngology Services | MD Sidney [address] | glottis (Primary | | | | at [facility] [address] | Dx); Dysphonia; | | | | [address] [place], | [place], [place] | Tobacco abuse; | | | | [place] [address] | [address] | Tobacco abuse | | | | [phone] | [phone] | counseling | | | | | [...] | 95.3 kg (210 lb) | 03/15/2018 1:48 PM | | | | | PDT [...] Instructions Patient Instructions Pamela Ford MA - 03/15/2018 2:00 PM PDTThank you for choosing [facility] Department of Otolaryngology for your health care needs. If you need to speak to an ENT physician after normal business hours, please call [phone] and ask to have the ENT phys ician masonry contractor paged. documented in this encounter Progress Notes Pasquale Moscoso MD - 03/15/2018 2:00 PM PDT PATIENT NAME: Ronni Chowdhury [facility] MR#: [id number] : 1970 REFERRING PROVIDER: Daniel Cannon MD [address] [place] [address] PRIMARY CARE PHYSICIAN: Daniel Cannon MD CLINIC: [facility] REASON FOR FOLLOW-UP: Chief Complaint Patient presents with Follow-up visit TUMOR TYPE/LOCATION: squamous cell carcinoma, right glottis TNM/STAGE: [id number]/Stage III IDENTIFICATION DATE: 11/29/17 SURGICAL EXCISION DATE: [...] Chowdhury returns noting that he is doing "fine." He notes that his tracheotomy site is cl osed. It is not draining anything and not leaking any air. He has been eating quite well. He reports that he eats "anything I want." He does admit that he works at this some and shaila l cough from time to time. This is most common on liquids. He has not had any fevers, chill s or sweats. He denies problems with productive cough or hemoptysis. He denies chest pain. He denies any recent episodes of pneumonia or bronchitis since I last saw him. He has not be en using his gastrostomy tube. He denies stridor or noisy breathing. He does not note dyspn ea on exertion. He has not noted any otalgia. His voice has improved and he has returned t o work. He does note that it's hard to communicate when he's in noisy environments. He admi ts that he has been doing some smoking. He is not maintained on a [...] 95.3 kg (210 lb) | BMI 26.96 kg/(m^2) Gen: He is a 47 y.o. [...] a healed apron incision. There is no significant erythema, fluctuance o r evidence of fistula. There is no crepitance noted. The tracheotomy site is closed and th ere is no tracheocutaneous fistula. There is no lymphadenopathy noted in the anterior, post erior, digastric or submental triangles. The thyroid is palpable, but not enlarged or tende r. I cannot appreciate any nodules. The larynx [...] and symmetric throughout. The pupils are equal. Network Support Administrator strength does jessica ear full bilaterally. Facial [...] limited upper range. There is 3+ roughness, 2+ breathiness, 1+ ast henia and 2+ tightness appreciated. There is no tremor noted with sustained vowel phonatio n. I am unable to detect voice breaks. Glottal parsons is not detected. There is no diplophon ia noted. Articulation is normal. Resonance is normal . FLEXIBLE LARYNGOSCOPY: Laryngoscopy was performed using a [...] The left arytenoid is present. It is nearly fully mobile. Th e remaining arytenoid is sensate. Closure is complete with breath holding. The subglottic airway is patent and without lesions or masses. ASSESSMENT: Mr. Chowdhury looks great. There is no evidence of recurrent or persistent diseas e at this time. His larynx is healed extremely well and he is making great improvements fu nctionally. His swallowing seems to be excellent and I think his G-tube can come out today. He is very pleased about this. His airway looks great and should not be a problem in the fut ure. He does have persistent hoarseness which is slowly getting better. I'm impressed with how much progress he has made with his voice. By biggest concern with Mr. Chowdhury is his return to smoking. We talked about this for quite a while. This is a grave concern is he is arty proven that he can form one upper aerodigest anika tract and I expect he can form another one. He really needs to cease all smoking and hi s is very supportive of this. We talked about free tobacco cessation resources availab le through [employer] including counseling, patches and gum. He may also wish to t alk to Dr. Cannon about pharmacologic smoking cessation options. Mr. Chowdhury noted that he wi ll consider these interventions. GASTROSTOMY TUBE REMOVAL: Mr. Chowdhury was positioned in the supine position with the abdomen exposed. The tube was carefully inspected and found to be intact. If present, the balloon was deflated. Gentle upward pressure was applied to the tube while holding the anterior a bdominal wall steady. Following removal, the tube was inspected and found to be removed in its entirety. The site was cleaned and found not to be bleeding. A small amount of granula tion tissue was cauterized with silver nitrate at the site. A dry gauze was applied with Ba citracin ointment and taped in place. Mr. Chowdhury tolerated the procedure quite well. PLAN: I recommended continuing an unrestricted diet. He worked with SHANI Leonard today and was very pleased with his progress. I will see him back in approximately 2 marah hs, or sooner if symptoms worsen. Pasquale Moscoso M.D. Banking Management Consulting Manager Laryngology and Head & Neck Surgery Pamela tarango MA - 03/15/2018 2:00 PM PDTlaryngoscopy procedure was performed using the [employer] instruments: Description #1: laryngoscope Serial ID #1: [id number] documented in this en counter Plan of Treatment +--------+---------+ + + + | Date | Type | Specialty | Care Team | Description | +--------+---------+ + + + | 03/19/ | Office | Otolaryngology | Pasquale Moscoso | | | 2019 | Visit | | MD Sidney [address] | | | | | | [address] | | | | | | [place], [place] | | | | | | [address] | | | | | | [phone] | | | | | | | [...]
--- OUTSIDE RECORDS SUMMARY | ~2019-10-09 | XMS | Encounter Summary ---
Demographics + + + | Address | [address] | | | [place] [address] | + + + | Home Phone [...] + + + | Author | [facility] | + + + | Organization | [facility] | + + + | Address | Unknown | + + + | Phone | Unavailable | + + + Support + + + + + | Name | Relationship | Address | Phone | + + + + + | Cecile Chowdhury | ECON | [address] | | | | | [place] [address] | | + + + + + Care Team Providers + +------+ + | Care Measuring Machine Operator Name | Role | Phone [...] lump, neck | [address] | Rd [place], | | | | | Malignant | [place], [place] | [place] | | | | | neoplasm of | [address] | [address] | | | | | glottis | Phone: | Phone: | | | | | (HCC) | [phone] | [phone] | | | | | Pharyngeal | Fax: | Fax: | | | | | dysphagia | [phone] | [phone] | | | | | Dysphonia | | | | | | | Procedures | | | | | | | REQUEST TO | | | | | | | SURGERY | | | | | | | FIRE WARDEN | | | | | | | MA | | | | | | | LARYNGOSCOPY | | | | | | | ,DIRCT,OP | | | | | | | SCOPE,BIOPSY | | | | | | | MA REMOVAL | | | | | | | NODES, | | | | | | | NECK,CERV | | | | | | | MOD RAD MA | | | | | | | DRAINAGE | | | | | | | LYMPH | | | | | | | NODE,SIMPLE | | | | | | | MA DRAINAGE | | | | | | | LYMPH | | | | | | | NODE,EXTENSI | | | | | | | VE MA | | | | | | | [...] | Laryngology Services | MD Sidney [address] [facility] | glottis (Primary | | | | at [facility] [address] | Dx); Neoplasm of | | | | [address] [place], | [place], [place] | uncertain behavior | | | | [place] [address] | [address] | of neck; Pharyngeal | | | | [phone] | [phone] | dysphagia; Dysphonia | | | | [...] 06/07/2018 11:00 AM PDTThank you for choosing [facility] Department of Otolaryngology for your health care needs. If you need to speak to an ENT physician after normal business hours, please call [phone] and ask to have the ENT phys ician strike planning applications paged. documented in this encounter Progress Notes Pasquale Moscoso MD - 06/07/2018 11:00 AM PDT PATIENT NAME: Ronni Chowdhury [facility] MR#: [id number] : 1970 REFERRING PROVIDER: Daniel Cannon MD [address] [address] PRIMARY CARE PHYSICIAN: Daniel Cannon MD CLINIC: [facility] REASON FOR FOLLOW-UP: Chief Complaint Patient presents with Follow-up visit TUMOR TYPE/LOCATION: squamous cell carcinoma, right glottis TNM/STAGE: [id number]/Stage III IDENTIFICATION DATE: 11/29/17 SURGICAL EXCISION DATE: [...] neck about 2 cm above the ap mj suture line. This is paramidline and along [...] and symmetric throughout. The pupils are equal. Rim Turning Finisher strength does jessica ear full bilaterally. Facial [...] es. Case seen by: ELSA Huff(ASCP) - Core Drill Operator Elroy Paige DO Cytopathology Fellow Kendall Del [...] will have free resources similar to [employer]oke[employer] [place].org that can assist with tobacco cessation. I [...] I will forward the information to my virtual assistant for advertisers to arrange a surgical date shor tly following the PET-CT. Pasquale Moscoso M.D. Embedded Nurse Laryngology and Head & Neck Surgery Pamela Tanner MA - 06/07/2018 11:00 AM PDTlaryngoscopy procedure was performed using the f [employer] instruments: Description #1: laryngoscope Serial ID #1: [id number] documented in this en counter Plan of Treatment +--------+---------+ + + + | Date | Type | Specialty | Care Team | Description | +--------+---------+ + + + | 03/19/ | Office | Otolaryngology | Pasquale Moscoso | | | 2020 | Visit | | MD Sidney [address] [facility] | | | | | | [address] | | | | | | [place], [place] | | | | | | [address] | | | | | | [phone] | | | | | | | [...] | + +--------+ + + + | MA | Routin | 06/07/2018 | T3N0 SCCa, [...] | + + + + + | [facility] | [address] | [place] [address] | | | PATHOLOGY | [address] [...]
--- OUTSIDE RECORDS SUMMARY | ~2019-10-09 | XMS | Encounter Summary ---
Demographics + + + | Address | [address] | | | [place] [address] | + + + | Home Phone | | + + + | Preferred Language | Unknown | + + + | Marital Status | | + + + | Mormonism Affiliation | NRP | + + + [...] | | | | [place] [address] | | + + + + + Care Team Providers + +------+ + | Care Ceramics Machine Operator Name | Role | Phone | + +------+ + | Daniel Cannon MD | PCP | | + +------+ + Encounter Details +--------+--------+ + + + | Date | Type | Department | Care Team | Description | +--------+--------+ + + + | 03/14/ | Travel | | | | | [...] [address] | | | | | | [place] | | | | | | [address] | | | | | | [phone] | | | | | | | | +--------+---------+ + + + documented as of this encounter Visit Diagnoses Not on filedocumented in this encounter"
--- OUTSIDE RECORDS SUMMARY | ~2019-10-09 | XMS | Encounter Summary ---
Demographics + + + | Address | [address] | | | [place] [address] | + + + | Home Phone | | + + + | Preferred Language | Unknown | + + + | Marital Status | | + + + | Yazdanism Affiliation | Unknown | + + + | Race | Unknown | + + + | Ethnic Group | Unknown | + + + Author + + + | Author | [facility] | | | and [place] | + + + | Organization | [facility] | | [...] Team Providers + +------+ + | Care Mortgage Closer Name | Role | Phone | + [...] Dominguez MD | | | | | [place], | | | | | | [place] [address] | | | | | | [phone] | | | +--------+--------+ + + + [...] [place] | | | | | | [address] | | | | | | | | +--------+ + + + + documented as of this encounter Visit Diagnoses Not on filedocumented in this encounter"
--- OUTSIDE RECORDS SUMMARY | ~2019-10-09 | XMS | Encounter Summary ---
Demographics + + + | Address | [address] | | | [place] [address] | + + + | Home Phone [...] Team Providers + +------+ + | Care Freelance Recruiter Name | Role | Phone | + [...] | +--------+ + + + + | 08/31/ | Hospital | [facility] | Naida Burnette | Malignant neoplasm | | 2018 | Encounter | MED CTR RADIATION | MD Brad [address] | of glottis (HCC) | | | | ONCOLOGY CLINIC [address] | [place], [place] | (Primary Dx) | | | | [address] | [address] | | | | | [place] [address] | | | | | | [phone] | | | +--------+ + + + [...] + + + | Blood Pressure | 129/87 | 08/31/2018 9:41 AM | | | | | PST | | + + + + + | Pulse | 97 | 08/31/2018 9:41 AM | | | | | PST | | + + + + + | Temperature | 36.6 C (97.9 F) | 08/31/2018 9:41 AM | | | | | PST | | + + + + + | Respiratory Rate | 16 | 08/31/2018 9:41 AM | | | | | PST | | + + + + + | Oxygen Saturation | 97% | 08/31/2018 9:41 AM | | | | | PST | | + + + + + | Inhaled Oxygen | - | - | | | Concentration | | | | + + + + + | Weight | 98.2 kg (216 lb 7.9 | 08/31/2018 9:41 AM | | | | oz) | [...] encounter Progress Notes Naida Burnette MD - 08/31/2018 9:43 AM PST Radiation Oncology Weekly On Treatment Note Diagnosis: ICD-10-CM ICD-9-CM 1. 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 Corre ctions were applied as necessary. No Known Allergies Current Outpatient Prescriptions on File Prior to Encounter Medication Sig Dispense Refill ADVAIR DISKUS 500-50 MCG/DOSE diskus inhaler inhale 1 puff by mouth INTO THE LUNGS 2 TI MES DAILY (Patient not taking: Reported on 08/24/2018) 60 each 11 amLODIPine (NORVASC) 10 MG tablet Take by mouth Daily. uzpuhjivkzXJAXK-lbnwrouhw-wggnkftu & magnesium hydroxide-simethicone (MAGIC MOUTHWASH) Swish and [...] facility-administered medications on file prior to encounter. 08/31/18 0943 Gastrointestinal Constipation 0 - Grade 0 Diarrhea 0 - Grade 0 Nausea 0 - Grade 0 Vomiting 0 - Grade 0 General Disorders and Administration Site Conditions Fatigue 1 - Grade 1 Performance Status Karnofsky Performance Score 80% Pain assessment: Location:throat Pain Level: PAIN PROG PAIN LEVEL: 3 Pain Quality: Constant Current pain regimen: oxycodone Wt Readings from Last 3 Encounters: 08/31/18 98.2 kg (216 lb 7.9 oz) 08/24/18 97.3 kg (214 lb 8.1 oz) 08/17/18 97.9 kg (215 lb 13.3 oz) Vitals: 08/31/18 0941 BP: 129/87 Pulse: 97 Resp: 16 Temp: 36.6 C (97.9 F) TempSrc: Temporal SpO2: 97% Weight: 98.2 kg (216 lb 7.9 oz) Physical Exam Constitutional: He appears well-developed and well-nourished. Neurological: He is alert. Skin: No rash noted. There is erythema. Psychiatric: He has a normal mood and affect. Physician Assessment: Ronni continues to tolerate radiation treatment fairly well. He does not report any diffi culty with swallowing. His weight is up a little this week. His skin demonstrates moderate erythema, well-healed moisturizer area there is mild edema in the skin and some fibrosis/te thering at prior surgical sites. Does not appear to have recurrent abscess or cellulitis on the anterior neck. Toxicities reviewed in nursing note. Disposition: Continue radiation treatment as planned. Encouraged him to work on massage and stretches to limit neck swelling and fibrosis. Naida Burnette MD Radiation Oncologist [...] [address] | | | | | | [place], [place] | | | | | | [id number] | | | | | | | | +--------+ + + + + documented as of this encounter Visit Diagnoses + + | Diagnosis | + + | 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
--- OUTSIDE RECORDS SUMMARY | ~2019-10-09 | XMS | Encounter Summary ---
Demographics + + + | Address | [address] | | | [place] [address] | + + + | Home Phone | | + + + | Preferred Language | Unknown | + + + | Marital Status | | + + + | Scientology Affiliation | Unknown | + + + | Race | Unknown | + + + | Ethnic Group | Unknown | + + + Author + + + | Author | [facility] | | | and [place] | + + + | Organization | [facility] | | | [...] Team Providers + +------+ + | Care Exchange Clerk Name | Role | Phone | + +------+ + | Daniel Cannon MD | PCP | | + +------+ + Encounter Details +--------+ + + + + | Date | Type | Department | Care Team | Description | +--------+ + + + + | 08/01/ | Orders Only | [facility] | Naida Burnette | | | 2017 | | MED CTR RADIATION | MD Brad [address] | | | | | ONCOLOGY CLINIC [address] | [place] | | | | | [address] | [address] | | | | | [place] [address] | | | | | | [phone] | | | +--------+ + + + [...] [place] | | | | | | [address] | | | | | | | | +--------+ + + + + documented as of this encounter Visit Diagnoses Not on filedocumented in this encounter"
--- OUTSIDE RECORDS SUMMARY | ~2019-10-09 | XMS | Encounter Summary ---
Demographics + + + | Address | [address] | | | [place] [address] | + + + | Home Phone [...] + + + | Author | [facility] | + + + | Organization | [facility] | + + + | Address | Unknown | + + + | Phone | Unavailable | + + + Support + + + + + | Name | Relationship | Address | Phone | + + + + + | Cecile Chowdhury | ECON | [address] | | | | | [place] [address] | | + + + + + Care Team Providers + +------+ + | Care Special Education Preschool Teacher Name | Role | Phone | [...] | Laryngology Services | MD Sidney [address] [facility] | | | | | at [facility] [address] | [address] | | | | | [place], | [place], [place] | | | | | [place] [address] | [address] | | | | | [phone] | [phone] | | | | | | | [...] | Visit | | MD Sidney [address] [facility] | | | | | | [facility] | | | | | | [place], [place] | | | | | | [address] | | | | | | [phone] | | | | | | | | +--------+---------+ + + + documented as of this encounter Visit Diagnoses Not on filedocumented in this encounter"
--- OUTSIDE RECORDS SUMMARY | ~2019-10-09 | XMS | Encounter Summary ---
Demographics + + + | Address | [address] | | | [place] [address] | + + + | Home Phone | | + + + | Preferred Language | Unknown | + + + | Marital Status | | + + + | Nondenominational Affiliation | Unknown | + + + [...] Team Providers + +------+ + | Care Vest Backer Name | Role | Phone | + [...] | | | | Larynx | Naida Salnias, | [address] | | | | | cancer (HCC) | [address] | [place], | | | | | Procedures | [address] | [place] [address] | | | | | CT | [place], | Phone: | | | | | Treatment | [place] [address] | [phone] | | | | | Plan Complex | Phone: | Fax: | | | | | | [phone] | [phone] | | | | | | Fax: | | | | | | | [phone] | | +--------+--------+ + + + + [...] cancer (HCC) | MD [address] | [place], | | | | | Procedures | [address] | [place] [address] | | | | | CT | [place], | Phone: | | | | | Treatment | [place] [address] | [phone] | | | | | Plan Complex | Phone: | Fax: | | | | | | [phone] | [phone] | | | | | | Fax: | | | | | | | [phone] | | +--------+--------+ + + + + Encounter Details +--------+ + + + + | Date | Type | Department | Care Team | Description | +--------+ + + + + | 07/21/ | Hospital | [facility] | Naida Burnette | Larynx cancer (HCC) | | 2018 | Encounter | MED CTR [address] | MD Brad [address] | | | | | [place], | [place], [place] | | | | | [place] [address] | [address] | | | | | [phone] | | | +--------+ + + + [...] [place] | | | | | | [address] | | | | | | | [...]
--- OUTSIDE RECORDS SUMMARY | ~2019-10-09 | XMS | Encounter Summary ---
Demographics + + + | Address | [address] | | | [place] [address] | + + + | Home Phone | | + + + | Preferred Language | Unknown | + + + | Marital Status | | + + + | Gnosticism Affiliation | NRP | + + + [...] | | | | [place] [address] | | + + + + + Care Team Providers + +------+ + | Care Stretching Machine Operator Name | Role | Phone | + +------+ + | Daniel Cannon MD | PCP | | + +------+ + Encounter Details +--------+ + + + + | Date | Type | Department | Care Team | Description | +--------+ + + + + | 01/06/ | Documentati | Otolaryngology | Pasquale Moscoso | | | 2018 | on | Laryngology Services | MD Sidney [address] [facility] | | | | | at [facility] [address] | [address] | | | | | [place], | [place], [place] | | | | | [place] [address] | [address] | | | | | [phone] | [phone] | | | | | | | [...] + +---+---+---+ + + | Comments: using [employer] | + + [...] 2019 | Visit | | MD Sidney [address] | | | | | | [address] | | | | | | [place], [place] | | | | | | [address] | | | | | | [phone] | | | | | | | | +--------+---------+ + + + documented as of this encounter Visit Diagnoses Not on filedocumented in this encounter
--- OUTSIDE RECORDS SUMMARY | ~2019-10-09 | XMS | Encounter Summary ---
Demographics + + + | Address | [address] | | | [place] [address] | + + + | Home Phone | | + + + | Preferred Language | Unknown | + + + | Marital Status | | + + + | Hinduism Affiliation | NRP | + + + | Race | White | + + + | Ethnic Group | Not or | + + + Author + + + | Author | [facility] | + + + | Organization | [facility] | + + + | Address | Unknown | + + + | Phone | Unavailable | + + + Support + + + + + | Name | Relationship | Address | Phone | + + + + + | Cecile Chowdhury | ECON | [address] | | | | | [place] [address] | | + + + + + Care Team Providers + +------+ + | Care Teletypist Name | Role | Phone | + [...] | | | | | | | [place], [place] | | | | | | | [address] | | | | | | | Phone: | | | | | | | [phone] | | | | | | | Fax: | | | | | | | [phone] | + +--------+ + + + + Encounter Details +--------+---------+ + + + | Date | Type | Department | Care Team | Description | +--------+---------+ + + + | 03/14/ | Office | Otolaryngology | Pasquale Moscoso | T3N0 SCCa, right | | 2019 | Visit | Laryngology Services | MD [facility] [address] | glottis (Primary | | | | at [address] | Dx); Pharyngeal | | | | [address] [place], | [place], [place] | dysphagia; | | | | [place] [address] | [address] | Dysphonia; Tobacco | | | | [phone] | [phone] | abuse | | | | | | | [...] + + + + | Weight | 93 kg (205 lb) | 03/14/2019 8:52 AM | | | | | PDT | | + + + + + | Height | - | - | | + + + + + | Body Mass Index | 26.32 | 06/20/2018 2:00 PM | | | [...] + documented as of this encounter Progress Natalie Tamayo MA - 03/14/2019 9:00 AM PDTLaryngoscopy procedure was performed using the [employer]: Description #1: [id number] Serial ID #1: [id number] Pasquale Schwab MD - 03/14/2019 9:00 AM PDT PATIENT NAME: Ronni Chowdhury MR#: [id number] : 1970 REFERRING PROVIDER: [facility] [address] [place] [address] PRIMARY CARE PHYSICIAN: Daniel Cannon MD CLINIC: [facility] REASON FOR FOLLOW-UP: Chief Complaint Patient presents with Follow-up visit TUMOR TYPE/LOCATION: squamous cell carcinoma, right glottis TNM/STAGE: [id number]/Stage III IDENTIFICATION DATE: 1) 11/29/17; 3) Reidentified [...] Grover, finishing in September of last year. I have not seen him since, but Dr. Grover was concerned about some possible persistent disease on a CT scan of the neck in December. Mr. Chowdhury returns noting that he feels "better. Radiation was rough." He notes that he hearn d throat pain with this toward the end, but this is resolved now. He feels that his swall owing is "pretty good." He denies throat pain. He has not noted any otalgia. He does not av oid any foods or liquids because of swallowing trouble. He denies coughing and sputtering wi th swallowing often, trouble breathing while swallowing, choking or recent aspiration-associ ated pneumonia. He will cough occasionally on swallowing "when I'm not paying attention." His voice worsened through radiation therapy, but is better now. "Maybe not quite as good a s it was before radiation." He denies stridor or noisy breathing. He does not note dyspnea on exertion. Unfortunately, he continues to smoke. He is not maintained on a proton pump inhibitor. He notes no symptoms of reflux, including heartburn, indigestion, acidic taste or belching. EAT-10 DYSPHGIA ASSESSMENT SCORE (0-40, lower is better): 0/40 MD GREEN DYSPHAGIA INDEX (0-100, 100 is better): Global: 75 Emotional: 75 F unctional: 75 Physical: 75 Total Mean: 75 VOICE HANDICAP INDEX (0-120, lower is better): 60/120 PMHx: Past Medical History: Diagnosis Date Alcohol [...] facility-administered medications for this visit. EXAMINATION: BP (!) 137/101 (BP Location: Left upper arm, Patient Position: Sitting) Comme nt: One coffee this AM | Pulse 92 | Wt 93 kg (205 lb) | BMI 26.32 kg/m | BSA 2.2 m Gen: He is a 48 y.o. [...] is no crepitance noted. There is no lymp hadenopathy noted. The larynx is absent and the [...] and symmetric throughout. The pupils are equal. Migrant Leader strength does jessica ear full bilaterally. Facial [...] A rticulation is normal. Resonance is normal. VOICE ANALYSIS: His maximum phonation time is 6.22 sec. His fundamental frequency is 208.59 Hz with a sustained vowel loudness of 82.27 dB. His fundamental frequency in reading is 14 7.17 Hz at 72.89 dB. His maximum pitch is 696.24 Hz and minimum pitch is 91.98 Hz. Jitter = 8.065 %. Shimmer = 1.889 dB. FLEXIBLE LARYNGOSCOPY: Laryngoscopy was performed using a distal-chip Olympus flexible vi deolaryngoscope following the topical nasal application of oxymetazoline and pontocaine. Th is was performed because the patient's gag reflex precluded adequate transoral indirect millie ngoscopy. This notes an intact upper portion of the epiglottis. All the mucosa of the millie nx is mildly diffusely red appearance. No lesions or ulcers are noted. This is crisp, midl ine and without worrisome lesions. The base of tongue is clear and free of worrisome lesion s or masses. The laryngeal introitus notes an intact pexis. There are no masses, ulcers or granulomas near this. The neoglottis is without worrisome lesions, ulceration or masses. There is trace crusting noted. The left arytenoid is present. It is is fully mobile. The remaining arytenoid is sensate. Closure is complete with breath holding. The subglottic a irway is patent and without lesions or masses. VIDEOSTROBOSCOPY: Laryngovideostroboscopy was performed today by me. Review of laryngovid eostroboscopy demonstrates laryngeal anatomy and motion as noted above. There is moderate l aryngeal hyperfunction in the anterior-posterior and lateral dimension. There is a stable m ucosal wave created. This is created primarily off the mucosa of the arytenoid mound on the right and medial aspect of the left arytenoid. The epiglottis facilitates closure anteriorl y. While hard to see closure does appear to be complete. CT SCAN: Computed tomography of the neck 12/27/18 demonstrates: Tio, Rad Results In - 12/27/2018 1534 PDT TECHNIQUE: After administration of 75 mL Omnipaque 350 intravenously, axial CT imaging was obtained through the neck with coronal and sagittal reformats. CLINICAL INFORMATION: larynx cancer COMPARISON: CT dated 12/15/2017 and 07/21/2018. PET CT 06/15/2018 FINDINGS: Visualized brain: No focal abnormality appreciated. [...] Dictated and Signed by: Anselmo Marie MD Electronically signed: 12/27/2018 3:31 PM I have reviewed these images and largely agree with the radiologist's findings. I do not t hink there is any evidence of recurrent malignancy as I believe that all the soft tissues no charo on the scan are appropriate postoperative changes. 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 Today, he looks quite good. I see no evidence of persistent d isease either on fiberoptic laryngoscopy or on his CT scan. I believe that he has had a fav orable response to radiation therapy. Functionally, he looks quite good. He does not appea r to have any specific worsening of his voice or swallowing. His airway is excellent. 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 My greatest concern with him at this time is his continued tobacco abuse. We talked about this for quite a while today. PLAN: I recommended continued periodic observation of his larynx. I strongly recommended that he continue to work on his tobacco cessation. This is critically important for him as I am quite afraid that we are going to see another tumor if he does not quit. He will not h ave many options if he does develop another tumor. We talked about free resources available online. I also talked to him about medications that may be useful for him. He does not wa nt to try any of these adjuncts. In truth, I did not get the impression that he is motivate d to quit. I will see him back in approximately 3 months, or sooner if symptoms worsen. Pasquale Moscoso M.D. Film Cleaner Laryngology and Head & Neck Surgery d [...] Rd | | | | | | [place], [place] | | | | | | [address] | | | | | | [phone] | | | | | | | | +--------+---------+ + + + documented as of this encounter Procedures + +--------+ + + + | Procedure Name | Priori | Date/Time | Associated Diagnosis | Comments | | | ty | | | | + +--------+ + + + | TN | Routin | 03/14/2019 | T3N0 SCCa, right | | | LARYNGOSCOPY,FLEX/RI | e | 11:20 AM | glottis Pharyngeal | | | GID+STROBOSCOPY | | PDT | dysphagia Dysphonia | [...]
--- OUTSIDE RECORDS SUMMARY | ~2019-10-09 | XMS | Encounter Summary ---
Demographics + + + | Address | [address] | | | [place] [address] | + + + | Home Phone | | + + + | Preferred Language | Unknown | + + + | Marital Status | | + + + | Church Affiliation | Unknown | + + + | Race | Unknown | + + + | Ethnic Group | Unknown | + + + Author + + + | Author | [facility] | | | and [place] | + + + | Organization | [facility] | | | [...] Team Providers + +------+ + | Care Money Market Clerk Name | Role | Phone | [...] Closed | | Radiology | Diagnoses | [facility] | [facility] | | | | | Laryngeal | Pasquale Little | [facility] | | | | | cancer (HCC) | [address] | | | | | Procedures | [address] | MEDICAL | | | | | PET CT | [place] | [place] [address] | | | | | Skull Base | [place], [place] | [place] | | | | | To Mid Thigh | [address] | [place], | | | | | | Phone: | [place] [address] | | | | | | [phone] | Phone: | | | | | | Fax: | [phone] | | | | | | [phone] | Fax: | | | | | | | [phone] | +--------+--------+ + + + + Reason for Visit Diagnostic/Screening (Routine) +--------+--------+ + + + + | Status | Reason | Specialty | Diagnoses / | Referred By | Referred To | | | | | Procedures | Contact | Contact | +--------+--------+ + + + + | Closed | | Radiology | Diagnoses | Blanka, | [facility] | | | | | Laryngeal | Pasquale S, | [facility] | | | | | cancer (HCC) | [address] | [address] | | | | | Procedures | [place] [address] [facility] | | | | | PET CT | [place] | [address] | | | | | Skull Base | [place], [place] | [place] | | | | | To Mid Thigh | [address] | [place], | | | | | | Phone: | [place] [address] | | | | | | [phone] | Phone: | | | | | | Fax: | [phone] | | | | | | [phone] | Fax: | | | | | | | [phone] | +--------+--------+ + + + + Encounter Details +--------+ + + + + | Date | Type | Department | Care Team | Description | +--------+ + + + + | 06/15/ | Hospital | [facility] | Pasquale Moscoso | Laryngeal cancer | | 2018 | Encounter | MED CTR PET SCAN | MD [facility] [address] | (HCC) | | | | [address] | [address] | | | | | [place] [address] | [place], [place] | | | | | [phone] | [address] | | | | | | [phone] | | | | | | | [...] [address] | | | | | | [place] | | | | | | [address] | | | | | | | | +--------+ + + + + documented as of this encounter Procedures + +--------+ + + + | Procedure Name | Priori | Date/Time | Associated Diagnosis | Comments | | | ty | | | | + +--------+ + + + | PET CT SKULL BASE TO | Routin | 06/15/2018 | Laryngeal cancer | Results for this | | MID THIGH | e | 11:13 AM | (HCC) | procedure are in the | | | | PDT | | results section. | + +--------+ + + + documented in this encounter Results PET CT Skull Base To Mid Thigh (06/15/2018 11:13 AM PDT) + + | Specimen | + + | | + + + +-------- -------+ | Narrative | Perform ed At | + +-------- -------+ | Exam: PET CT | [facility] | | SKULL BASE TO MID THIGH dated 06/15/2018 8:51 AM History: LARYNGEAL | | | CANCER, ANTERIOR RIGHT NECK MASS Comparison: Neck CT 12/15/2017 from the | | | [facility]. Technique: PET/CT imaging was performed from the | | | skull base through the proximalthighs following the uneventful | | | intravenous administration of 14.97 millicuriesof F-18 FDG. The | | | glucose at the time of injection is 106 mg/dL. Injection timeis 9:25 | | | AM and scan start time is 10:20 AM. Attenuation | | | corrected,nonattenuation corrected, and PET/CT fused data are reviewed | | | on a multiplemodality workstation. A low-dose CT is utilized for | | | attenuation correction andlocalization. This should not substitute | | | for a diagnostic CT when clinicallywarranted. Dose: CTDI = 16.95 mGy; | | | DLP = 1748.27 mGy per centimeter Findings: PET/CT: Mediastinal | | | background max SUV = 2.63 (image 125). Liver background max SUV = | | | 3.74 (image 155). There is a somewhat triangular area of | | | hypermetabolic activity in the right neckbase. This obscures the | | | typical fat tissue plane between the anterior upperpole of the right | | | lobe of the thyroid and the right sternocleidomastoid. Theupper | | | extent of activity results and ill-definition between the inferior | | | aspectof the right submandibular gland. The maximum SUV is 11.5. | | | The hypermetabolicregion measures about 2.3 x 2 x 1 cm. There is | | | symmetric activity in the tonsillar regions bilaterally. The remainder | | | of the metabolic activity is physiologic as seen within the baseof | | | the brain, oropharyngeal soft tissues, heart, mediastinum, liver, | | | spleen,kidneys and collecting system. Additional activity is also | | | seen nonfocallythroughout the musculoskeletal system and | | | gastrointestinal tract. INCIDENTALS: Mild aneurysmal dilatation of the | | | mid ascending thoracic aorta. Itmeasures 4.3 cm. IMPRESSION - | | | Hypermetabolic, somewhat ill-defined soft tissue in the right neck | | | baseobscuring tissue planes between the submandibular gland, | | | sternocleidomastoid,and upper pole the right lobe of the thyroid. | | | The hypermetabolism suggest amalignant process. Dictated and Signed | | | by: Jefry Ann MD Electronically signed: 06/15/2018 12:55 PM | | | | | |The remainder of the metabolic activity is physiologic as seen within the base | | |of the brain, oropharyngeal soft tissues, heart, mediastinum, liver, spleen, | | |kidneys and collecting system. Additional activity is also seen nonfocally | | |throughout the musculoskeletal system and gastrointestinal tract. | | | | | |INCIDENTALS: Mild aneurysmal dilatation of the mid ascending thoracic aorta. It | | |measures 4.3 cm. | | | | | |IMPRESSION - | | | | | |Hypermetabolic, somewhat ill-defined soft tissue in the right neck base | | |obscuring tissue planes between the submandibular gland, sternocleidomastoid, | | |and upper pole the right lobe of the thyroid. The hypermetabolism suggest a | | |malignant process. | | | | | |Dictated and Signed by: Jefry Ann MD | | | Electronically signed: 06/15/2018 12:55 PM | | | | | + +-------- -------+ + + | Procedure Note | + + | Tio, Rad Results In - 06/15/2018 12:58 PM PDT Exam: PET CT SKULL BASE TO MID THIGH | | dated 06/15/2018 8:51 AMHistory: LARYNGEAL CANCER, ANTERIOR RIGHT NECK MASSComparison: | | Neck CT 12/15/2017 from the [facility].Technique: PET/CT imaging was performed | | from the skull base through the proximalthighs following the uneventful intravenous | | administration of 14.97 millicuriesof F-18 FDG. The glucose at the time of injection is | | 106 mg/dL. Injection timeis 9:25 AM and scan start time is 10:20 AM. Attenuation | | corrected,nonattenuation corrected, and PET/CT fused data are reviewed on a | | multiplemodality workstation. A low-dose CT is utilized for attenuation correction | | andlocalization. This should not substitute for a diagnostic CT when | | clinicallywarranted.Dose: CTDI = 16.95 mGy; DLP = 1748.27 mGy per | | centimeterFindings:PET/CT: Mediastinal background max SUV = 2.63 (image 125). Liver | | background max SUV = 3.74 (image 155).There is a somewhat triangular area of | | hypermetabolic activity in the right neckbase. This obscures the typical fat tissue | | plane between the anterior upperpole of the right lobe of the thyroid and the right | | sternocleidomastoid. Theupper extent of activity results and ill-definition between the | | inferior aspectof the right submandibular gland. The maximum SUV is 11.5. The | | hypermetabolicregion measures about 2.3 x 2 x 1 cm. There is symmetric activity in the | | tonsillar regions bilaterally.The remainder of the metabolic activity is physiologic as | | seen within the baseof the brain, oropharyngeal soft tissues, heart, mediastinum, liver, | | spleen,kidneys and collecting system. Additional activity is also seen | | nonfocallythroughout the musculoskeletal system and gastrointestinal tract.INCIDENTALS: | | Mild aneurysmal dilatation of the mid ascending thoracic aorta. Itmeasures 4.3 | | cm.IMPRESSION -Hypermetabolic, somewhat ill-defined soft tissue in the right neck | | baseobscuring tissue planes between the submandibular gland, sternocleidomastoid,and | | upper pole the right lobe of the thyroid. The hypermetabolism suggest amalignant | | process.Dictated and Signed by: Jefry Ann MD Electronically signed: 06/15/2018 | | 12:55 PM | |pole of the right lobe of the thyroid and the right sternocleidomastoid. The | |upper extent of activity results and ill-definition between the inferior aspect | |of the right submandibular gland. The maximum SUV is 11.5. The hypermetabolic | |region measures about 2.3 x 2 x 1 cm. | | | |There is symmetric activity in the tonsillar regions bilaterally. | | | |The remainder of the metabolic activity is physiologic as seen within the base | |of the brain, oropharyngeal soft tissues, heart, mediastinum, liver, spleen, | |kidneys and collecting system. Additional activity is also seen nonfocally | |throughout the musculoskeletal system and gastrointestinal tract. | | | |INCIDENTALS: Mild aneurysmal dilatation of the mid ascending thoracic aorta. It | |measures 4.3 cm. | | | |IMPRESSION - | | | |Hypermetabolic, somewhat ill-defined soft tissue in the right neck base | |obscuring tissue planes between the submandibular gland, sternocleidomastoid, | |and upper pole the right lobe of the thyroid. The hypermetabolism suggest a | |malignant process. 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
--- OUTSIDE RECORDS SUMMARY | ~2019-10-09 | XMS | Encounter Summary ---
Demographics + + + | Address | [address] | | | [place] [address] | + + + | Home Phone | | + + + | Preferred Language | Unknown | + + + | Marital Status | | + + + | Restorationist Affiliation | Unknown | + + + [...] Team Providers + +------+ + | Care Cashier Gambling Name | Role | Phone | + [...] | | | [address] | [address] | | | | | [place] [address] | | | | | | [phone] | | | +--------+ + + + [...] [place] | | | | | | [id number] | | | | | | | | +--------+ + + + + documented as of this encounter Visit Diagnoses Not on filedocumented in this encounter"
--- OUTSIDE RECORDS SUMMARY | ~2019-10-09 | XMS | Encounter Summary ---
Demographics + + + | Address | [address] | | | [place] [address] | + + + | Home Phone [...] Team Providers + +------+ + | Care Brazing Machine Setter Name | Role | Phone | + [...] | | | [address] | [address] | | | | | [place] [address] | | | | | | [phone] | | | +--------+ + + + [...] MD Radiation Oncologist Department of Radiation Oncology [facility] This note was transcribed using [employer] speech recognition software. 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
--- OUTSIDE RECORDS SUMMARY | ~2019-10-09 | XMS | Encounter Summary ---
Demographics + + + | Address | [address] | | | [place] [address] | + + + | Home Phone [...] | | | | [place] [address] | | + + + + + Care Team Providers + +------+ + | Care Back Up Scan Coordinator Name | Role | Phone | + +------+ + | Daniel Cannon MD | PCP | | + +------+ + Encounter Details +--------+ + + + + | Date | Type | Department | Care Team | Description | +--------+ + + + + | 05/03/ | [facility] Helper | Otolaryngology | Steve, | | | 2017 | | Laryngology Services | Yolande Casey PA-C | | | | | at [facility] [address] | [address] | | | | | [address] [place], | [place], [place] | | | | | [place] [address] | [address] | | | | | [phone] | [phone] | | | | | | | [...] [place] | | | | | | [address] | | | | | | [phone] | | | | | | | | +--------+---------+ + + + documented as of this encounter Visit Diagnoses Not on filedocumented in this encounter"
--- OUTSIDE RECORDS SUMMARY | ~2019-10-09 | XMS | Encounter Summary ---
Demographics + + + | Address | [address] | | | [place] [address] | + + + | Home Phone [...] | | | | [place] [address] | | + + + + + Care Team Providers + +------+ + | Care Atomizer Assembler Name | Role | Phone | [...] | Malignant | Pasquale S, | Chh1 7533 | | | | | neoplasm of | [address] | | | | | glottis | [address] | Mailcode: | | | | | (HCC) | [address] | [facility] | | | | | Pharyngeal | [place], [place] | for Health | | | | | dysphagia | [address] | and Healing, | | | | | Dysphonia | Phone: | Building 1, | | | | | Tobacco | [phone] | 3rd Floor | | | | | abuse | Fax: | [place], [place] | | | | | Procedures | [phone] | [address] | | | | | CT CHEST WO | | Phone: | | | | | CONTRAST [place] | | [phone] | | | | | CT | | Fax: | | | | | SCAN,THORAX, | | [phone] | | | | | W/O CONTRAST [...] | Malignant | Pasquale S, | Chh1 [address]293 | | | | | neoplasm of | MD [address] | [address] | | | | | glottis | [address] | Mailcode: | | | | | (HCC) | [address] | [facility] | | | | | Pharyngeal | [place], [place] | for Health | | | | | dysphagia | [address] | and Healing, | | | | | Dysphonia | Phone: | Building [address], | | | | | Tobacco | [phone] | 3rd Floor | | | | | abuse | Fax: | [place], [place] | | | | | Procedures | [phone] | [address] | | | | | CT CHEST WO | | Phone: | | | | | CONTRAST [place] | | [phone] | | | | | CT | | Fax: | | | | | SCAN,THORAX, | | [phone] | | | | | W/O CONTRAST | | | +--------+--------+ + + + + Encounter Details +--------+ + + + + | Date | Type | Department | Care Team | Description | +--------+ + + + + | 09/21/ | Hospital | Radiology/Imaging | Pasquale Moscoso | | | 2019 | Encounter | Lab at [facility] [address] | MD [place] [address] | | | | | [place] Mailcode: | [address] | | | | | [facility] for | [place], [place] | | | | | Health and Healing, | [address] | | | | | Building 1, 3rd | [phone] | | | | | Floor [place], [place] | | | | | | [address] | | | | | | [phone] | | | +--------+ + + + [...] 2020 | Visit | | MD Sidney [address] | | | | | | [address] | | | | | | [place], [place] | | | | | | [address] | | | | | | [phone] | | | | | | | [...]
--- OUTSIDE RECORDS SUMMARY | ~2019-10-09 | XMS | Encounter Summary ---
Demographics + + + | Address | [address] | | | [place] [address] | + + + | Home Phone [...] | | | | [place] [address] | | + + + + + Care Team Providers + +------+ + | Care B2B Account Executive Name | Role | Phone | + [...] | | | | CONSULT TO | [place], [place] | [place], | | | | | ENT GENERAL | [address] | [place] | | | | | | Phone: | [address] | | | | | | [phone] | Phone: | | | | | | Fax: | [phone] | | | | | | [phone] | Fax: | | | | | | | [phone] | +--------+--------+ + + + + Encounter Details +--------+---------+ + + + | Date | Type | Department | Care Team | Description | +--------+---------+ + + + | 03/15/ | Office | Otolaryngology | Pasquale Moscoso | T3N0 SCCa, right | | 2018 | Visit | Laryngology Services | MD [address] | glottis (Primary | | | | at [facility] [address] | Dx); Dysphonia; | | | | [address] [place], | [place], [place] | Tobacco abuse; | | | | [place] [address] | [address] | Tobacco abuse | | | | [phone] | [phone] | counseling | | | | | [...] 03/15/2018 2:00 PM PDTThank you for choosing [facility] Department of Otolaryngology for your health care needs. If you need to speak to an ENT physician after normal business hours, please call [phone] and ask to have the ENT phys ician special population paraprofessional paged. documented in this encounter Progress Notes Pasquale Moscoso MD - 03/15/2018 2:00 PM PDT PATIENT NAME: Ronni Chowdhury [facility] MR#: [id number] : 1970 REFERRING PROVIDER: Daniel Cannon MD [address] [place] [address] PRIMARY CARE PHYSICIAN: Daniel Cannon MD CLINIC: [facility] REASON FOR FOLLOW-UP: Chief Complaint Patient presents with Follow-up visit TUMOR TYPE/LOCATION: squamous cell carcinoma, right glottis TNM/STAGE: [id number]/Stage III IDENTIFICATION DATE: 11/29/17 SURGICAL EXCISION DATE: [...] and symmetric throughout. The pupils are equal. Airport Duty Manager strength does jessica ear full bilaterally. Facial [...] free tobacco cessation resources availab le through via680 including counseling, patches and gum. He may [...] sooner if symptoms worsen. Pasquale Moscoso M.D. Newspaper Library Manager Laryngology and Head & Neck Surgery Pamela tarango MA - 03/15/2018 2:00 PM PDTlaryngoscopy procedure was performed using the [employer] instruments: Description #1: laryngoscope Serial ID #1: [id number] documented in this en counter Plan of Treatment +--------+---------+ + + + | Date | Type | Specialty | Care Team | Description | +--------+---------+ + + + | 03/19/ | Office | Otolaryngology | Pasquale Moscoso | | | 2019 | Visit | | MD [address] | | | | | | [address] | | | | | | [place], [place] | | | | | | [address] | | | | | | [phone] | | | | | | | [...]
--- OUTSIDE RECORDS SUMMARY | ~2019-10-09 | XMS | Encounter Summary ---
Demographics + + + | Address | [address] | | | [place] [address] | + + + | Home Phone | | + + + | Preferred Language | Unknown | + + + | Marital Status | | + + + | Yarsanism Affiliation | Unknown | + + + | Race | Unknown | + + + | Ethnic Group | Unknown | + + + Author + + + | Author | [facility] | | | and [place] | + + + | Organization | [facility] | | | and [...] Team Providers + +------+ + | Care Bag Worker Name | Role | Phone | + +------+ + | Daniel Cannon MD | PCP | | + +------+ + Encounter Details +--------+ + + + + | Date | Type | Department | Care Team | Description | +--------+ + + + + | 08/22/ | Hospital | [facility] | Naida Burnette | | | 2018 | Encounter | MED CTR RADIATION | MD Brad [address] | | | | | ONCOLOGY [address] [place] | | | | | [place], | [address] | | | | | [place] [address] | | | | | | [phone] | | | +--------+ + + + [...] [place] | | | | | | [address] | | | | | | | | +--------+ + + + + documented as of this encounter Visit Diagnoses Not on filedocumented in this encounter"
--- OUTSIDE RECORDS SUMMARY | ~2019-10-09 | XMS | Encounter Summary ---
Demographics + + + | Address | [address] | | | [place] [address] | + + + | Home Phone | | + + + | Preferred Language | Unknown | + + + | Marital Status | | + + + | Jehovah'S Witness Affiliation | Unknown | + + + | Race | Unknown | + + + | Ethnic Group | Unknown | + + + Author + + + | Author | [facility] | | | and [place] | + + + | Organization | [facility] | | | [...] Team Providers + +------+ + | Care Dog Catcher Name | Role | Phone | + [...] Dominguez MD | | | | | [place], | | | | | | [place] [address] | | | | | | [phone] | | | +--------+--------+ + + + [...] [place] | | | | | | [address] | | | | | | | | +--------+ + + + + documented as of this encounter Visit Diagnoses Not on filedocumented in this encounter"
--- OUTSIDE RECORDS SUMMARY | ~2019-10-09 | XMS | Encounter Summary ---
Demographics + + + | Address | [address] | | | [place] [address] | + + + | Home Phone | | + + + | Preferred Language | Unknown | + + + | Marital Status | | + + + | Sikh Affiliation | Unknown | + + + | Race | Unknown | + + + | Ethnic Group | Unknown | + + + Author + + + | Author | [facility] | | | and [place] | + + + | Organization | [facility] | | | [...] Team Providers + +------+ + | Care Cdl Dedicated Truck Driver Name | Role | Phone | [...] + + | 08/24/ | Hospital | [facility] | Naida Burnette | Malignant neoplasm | | 2018 | Encounter | MED CTR RADIATION | MD Brad [address] | of glottis (HCC) | | | | ONCOLOGY CLINIC [address] | [place], [place] | (Primary Dx) | | | | [address] | [address] | | | | | [place] [address] | | | | | | [phone] | | | +--------+ + + + [...] + + + | Blood Pressure | 136/89 | 08/24/2018 10:22 AM | | | | | PST | | + + + + + | Pulse | 95 | 08/24/2018 10:22 AM | | | | | PST | | + + + + + | Temperature | 37.1 C (98.8 F) | 08/24/2018 10:22 AM | | | | | PST | | + + + + + | Respiratory Rate | 16 | 08/24/2018 10:22 AM | | | | | PST | | + + + + + | Oxygen Saturation | 97% | 08/24/2018 10:22 AM | | | | | PST | | + + + + + | Inhaled Oxygen | - | - | | | Concentration | | | | + + + + + | Weight | 97.3 kg (214 lb 8.1 | 08/24/2018 10:22 AM | | | | oz) | PST | | + + + + + | Height | - | - | | + + + + + | Body Mass Index | 27.53 | 07/19/2018 12:34 PM | | | [...] encounter Progress Notes Naida Burnette MD - 08/24/2018 10:24 AM PST Radiation Oncology Weekly On Treatment Note 16/ Diagnosis: ICD-10-CM ICD-9-CM 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 cbaaldctviOUUIZ-gnyfjsiss-cnokhecs & magnesium hydroxide-simethicone (MAGIC MOUTHWASH) Swish and swallow 5 mLs every 4 hours as needed for Pain. (RECIPE = 1:1:1 mixture of Maalox, diphenhydrAMINE, viscous lidocaine) 250 mL 3 gabapentin (NEURONTIN) 300 mg [...] facility-administered medications on file prior to encounter. 08/24/18 1024 Gastrointestinal Oral Hemorrhage 0 - Grade 0 General Disorders and Administration Site Conditions Fatigue 1 - Grade 1 Metabolism and Nutrition Anorexia 0 - Grade 0 Performance Status Karnofsky Performance Score 80% Pain assessment: Location: throat Pain Level: PAIN PROG PAIN LEVEL: 3 Pain Quality: Dull Current pain regimen: Gabapentin & Oxycodone Wt Readings from Last 3 Encounters: 08/24/18 97.3 kg (214 lb 8.1 oz) 08/17/18 97.9 kg (215 lb 13.3 oz) 08/10/18 98.6 kg (217 lb 6 oz) Vitals: 08/24/18 1022 BP: 136/89 Pulse: 95 Resp: 16 Temp: 37.1 C (98.8 F) TempSrc: Temporal SpO2: 97% Weight: 97.3 kg (214 lb 8.1 oz) Physical Exam Constitutional: He appears well-developed and well-nourished. HENT: Mouth/Throat: Posterior oropharyngeal erythema present. Neurological: He is alert. Skin: No rash noted. There is erythema. Psychiatric: He has a normal mood and affect. Physician Assessment: Ronni report fatigue, low appetite and mild pain with swallowing. Weight continues slow t rend down, 1 lb per week. Increased swelling and erythema at neck. Not painful. No fevers. They express concern abo ut the area of prior abscess increasing in size. Admit that he has been only taking penicil osman twice a day and set of the prescribed 4 times a day, due to diarrhea. He continues on a 6+ week course of treatment with pcn. NO pain at this site. No fevers. Neck has mild edema all over. Not significantly worse at prior abscess site. Ration related swelling and deshaun a is felt to be the primary etiology. We will continue to monitor the site closely. Loss of voice. No stridor or difficulty breathing. Sleeps in a recliner. notes that he snores, declines sleep medicine consult in the past. No witnessed apnea. Toxicities reviewed in nursing note. Disposition: Continue radiation treatment as planned. Discontinue penicillin and monitor neck closely. He has been taking subtherapeutic dose. If concern for recurrent infection we will start a prolonged course of amoxicillin/ Continue current pain management with oxycodone and gabapentin Naida Burnette MD Radiation Oncologist documented in this encounter Plan of Treatment +--------+ + + + + | Date | Type | Specialty | Care Team | Description | +--------+ + + + + | 01/01/ | Appointment | Radiation Oncology | Naida Burnette | | | 2019 | | | MD Brad [address] | | | | | | [place], [place] | | | | | | [address] | | | | | | | | +--------+ + + + + documented as of this encounter Visit Diagnoses + + | Diagnosis | + + | 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
--- OUTSIDE RECORDS SUMMARY | ~2019-10-09 | XMS | Encounter Summary ---
Demographics + + + | Address | [address] | | | [place] [address] | + + + | Home Phone [...] | | | | [place] [address] | | + + + + + Care Team Providers + +------+ + | Care Paving Crew Foreman Name | Role | Phone | + [...] | Event | [address] | [address] | | | | | [facility] | [facility] [place], | | | | | Ambulatory Surgery | [place] [address] | | | | | Admitting Desk | [phone] | | | | | Located on the [facility] | | | | | | floor, Room 4519 | [place], | | | | | [place] | [address] | | | | | [address] | [address] | | | | | | [place], [place] | | | | | | [address] | | | | | | [phone] | | | | | | | | +--------+ + + + + Anesthesia Record + + + + + | Procedure Name | Responsible | Anesthesia Start | Anesthesia Stop Time | | | Anesthesiologist | Time | | + + + + + | DIRECT | Daniel Wong MD | 06/20/18 1544 | 06/20/18 3423 | | MICROLARYNGOSCOPY | | | | [...] Rd | | | | | | [place], [place] | | | | | | [address] | | | | | | [phone] | | | | | | | [...]
--- OUTSIDE RECORDS SUMMARY | ~2019-10-09 | XMS | Encounter Summary ---
Demographics + + + | Address | [address] | | | [place] [address] | + + + | Home Phone | | + + + | Preferred Language | Unknown | + + + | Marital Status | | + + + | Gnosticist Affiliation | NRP | + + + | Race | White | + + + | Ethnic Group | Not or | + + + Author + + + | Author | [facility] | + + + | Organization | [facility] | + + + | Address | Unknown | + + + | Phone | Unavailable | + + + Support + + + + + | Name | Relationship | Address | Phone | + + + + + | Cecile Mahmood | ECON | [address] | | | | | [place] [address] | | + + + + + Care Team Providers + +------+ + | Care Sports Specialist Name | Role | Phone | [...] +--------+---------+ + + + | 01/16/ | Surgery | [id number] | Pasquale Moscoso | RIGHT DIRECT | | 2018 | | [address] [place] | MD [address] | MICROLARYNGOSCOPY; | | | | Rd [facility] | [address] [place] | | | | | Hospital Admitting | [place], [place] | | | | | Desk Located on the | [address] | | | | | floor | [phone] | | | | | [place], [place] | | | | | | [address] | | | +--------+---------+ + + + [...] + + + | Blood Pressure | 131/82 | 01/23/2018 8:15 AM | | | | | PDT | | + + + + + | Pulse | 104 | 01/23/2018 8:15 AM | | | | | PDT | | + + + + + | Temperature | 37.4 C (99.3 F) | 01/23/2018 8:15 AM | | | | | PDT | | + + + + + | Respiratory Rate | 18 | 01/23/2018 8:15 AM | | | | | PDT | | + + + + + | Oxygen Saturation | 96% | 01/23/2018 8:15 AM | | | | | PDT | | + + + + + | Inhaled Oxygen | - | - | | | Concentration | | | | + + + + + | Weight | 102.7 kg (226 lb 6.6 | 01/16/2018 6:00 AM | | | | oz) | PDT | | + + + + + | Height | 188 cm (6' 2") | 01/16/2018 6:00 AM | | | | | PDT | | + + + + + | Body Mass Index | 29.07 | 01/16/2018 6:00 AM | | | [...] encounter Discharge Summaries Lamin Osullivan PA-C - 01/23/2018 10:13 AM PDT DOS: 01/23/2018 10:13 AM INPATIENT PHYSICIAN DISCHARGE SUMMARY Author: LAMIN OSULLIVAN PA-C Attending Physician: Pasquale Moscoso MD PCP: Daniel Cannon MD Admission Date: 01/16/2018 Discharge Date: 23 Jan 2018 Diagnoses Principal Final Diagnosis: 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 Moscoso (ENT) 01/16/2018 PROCEDURE: direct microlaryngoscopy, upper GI endoscopy with percutaneous endogastric tube placement, supracricoid partial laryngectomy sparing left arytenoid, cricohyoidoepiglottope xy, right modified radical neck dissection, tracheotomy tube placement Brief Hospital Course: The patient was taken [...] chronic pain (close follow up with [facility]). The patient had stable [...] he was informed on appropriate follow-up care. Medications: Medication List START taking these medications acetaminophen 500 mg Tab Commonly known as: TYLENOL 2 tablets by feeding tube route four times daily as needed. chlorhexidine 0.12 % Mwsh Commonly known as: PERIDEX Take 15 mL by mouth two times daily. Swish undiluted oral rinse around in mouth for 30 seco nds, then spit. Do not swallow. famotidine 20 mg Tab Commonly known as: PEPCID 1 tablet by feeding tube route two times daily. oxyCODONE (immediate release) 5 mg Tab Commonly known as: ROXICODONE 1-3 tablets by feeding tube route every four hours as needed. polyethylene glycol 17 gram Pwpk Commonly known as: MIRALAX 1 packet by feeding tube route once daily as needed. Indications: constipation * RX TRACHEOSTOMY TUBE Malignant Neoplasm of Glottis Dysphonia * RX HOME OXYGEN Concentrator oxygenTrach mask for walking Portable gas tank system senna-docusate 8.6-50 mg Tab Commonly known as: SENNA PLUS Take 1 tablet by mouth twice daily as needed. Indications: constipation * This list has 2 medication(s) that are the same as other medications prescribed for you. Read the directions carefully, and ask your doctor or other care provider to review them wit h you. CHANGE how you take these medications amLODIPine 10 mg Tab Commonly known as: NORVASC 1 tablet by feeding tube route once daily. Indications: hypertension What changed: how to take this CHANTIX STARTING MONTH BOX 0.5 mg (11)- 1 mg (42) Dspk Generic drug: varenicline Take 0.5 mg daily for 3 days, then increase to 0.5 mg twice daily for 4 days, then increase to 1 mg twice daily. Feeding tube What changed: See the new instructions. CONTINUE taking these medications ADVAIR DISKUS 500-50 mcg/dose Dsdv Generic drug: fluticasone-salmeterol inhale 1 puff by mouth INTO THE LUNGS 2 TIMES DAILY VENTOLIN HFA 90 mcg/actuation Hfaa Generic drug: albuterol inhale 1-2 puffs every 4 to 6 hours if needed Diet NPO NPO- Nothing by mouth. You should not eat or drink any food or liquid at this time. Okay f or oral swabs for comfort only. Tube Feeding Nutren 1.5 or equivalent @ 350 ml 5x/day; Water flushes: 250 ml 5x/day Other Discharge Orders and Instructions OTOLARYNGOLOGY- HEAD [...] Prescriptions sent by mail will take 3 business d ays. Prescriptions to be picked up in person will be ready by the next business day. It is your responsibility to keep track of how much pain medication you have left. You may receive a phone call from the clinic inquiring about your pain; this is to find out if you are having expected post-surgical pain, or if you are having problems and need furth er evaluation. WOUND CARE: Keep the wound clean and dry. Some thin, blood tinged drainage from the wound is normal. You may shower with soap and water. Pat your incision dry. Do not scrub your incision. Do not use hot tubs or take a bath until cleared by a surgeon. Apply a thin layer of petroleum jelly (Vaseline) or antibacterial ointment (Bacitracin) to the wound at least 2 times a day over the neck for 2 weeks. Apply sunscreen over your wounds for at least 6 months, and wear a hat when in direct sunli ght [facility] [place] your teeth as you would normally, but try not to stretch the lips as you brush. It is important to use the Peridex (chlorhexidine gluconate) or equivalent mouthrinse twice per d ay until you see your doctor back in the clinic. TRACH CARE: If your trach comes out and you have difficulty breathing call 911 or proceed to the [facility] ER immediately. If the trach is dislodged and you are comfortable with breathing you can replace it yourself. The solid white obturator should be used to replace the trach and moise norbert immediately and the inner cannula should then be snapped back into place. Change the inner cannula of your trach as needed. Routine trach care and suctioning, humidified O2 via trach mask TUBE FEEDING: - Please be careful not to accidentally pull out the G-tube (be especially careful at night while rolling in bed!). - It is ok to shower with the G-tube in place. Make sure to rinse all the soap off, then pa t dry with a clean towel. No soaking in water (baths, swimming) while feeding tube is in claire ce. - Please flush the tube with water before and after giving medications or tube feedings to prevent the tube from clogging. - If tube becomes clogged, try to flush it with warm water. You may also try to get a small amount (10-20ml) of Coca-Cola into the tubing to break up the clog. If these measures do no t work, please call the clinic to get a prescription for enzymes that will hel p dissolve the clog or to discuss further options. *If the G-tube accidentally comes out, please go to your nearest emergency room DRAINS: The drain will stay in place [...] insertion site; any additional questions or concerns. Call the [facility] at [phone] for difficulty breathing or unusual shortness of breath , excessive bleeding, drainage at the operative site, fevers, chills, increased pain that is not relieved by pain medications, persistent nausea or vomit ing. FOLLOW-UP: 02/06/2018 10:00 AM Steven GONZALEZ Otolaryngoangel 02/06/2018 11:30 AM Pasquale Moscoso MD ENTLADemario Otolaryngoangel HOW TO REACH US: Tuesday- Tuesday from 8:00am to 4:30pm, call the Otolaryngology clinic at [phone]. After hours, weekends, and holidays, call the [facility] casting machine service operator at [phone] and as k to have the ENT doctor on-call paged Future Appointments Date Time Provider Department Center 02/06/2018 10:00 AM Steven Olivaresynmarcelle 02/06/2018 11:30 AM Pasquale Moscoso MD ENTCHERYL Otolaryngoangel Consults obtained:PT/OT, ENT CUT ORDER HAND, nutrition, Respiratory sales planner Pertinent imaging:In [facility] Pertinent labs: CBC with diff last 72 hours (or 3 results) Recent Labs 01/21/1826 01/22/186 01/23/18442 WBC 13.70* 12.04* 11.74* HB 10.8* 11.2* 11.5* HCT 32.9* 34.3* 35.2* PLT 235 284 356 Chemistries: Last 72 Hours (or 3 results): Recent Labs 01/21/1826 01/22/186 01/23/18442 NA 139 139 143 K 3.9 3.7 4.0 CL 104 105 109* BICARB 30 26 25 BUN 11 13 12 CR 0.81 0.73 0.71 GLU 135* 98 118* CA 8.5* 9.0 9.4 MG 2.5 2.4 2.6 PO4 2.3* 2.9 3.4 Vitals on discharge: Ht 1.88 m (6' 2"), Wt 102.7 kg (226 lb 6.6 oz), BP 130/69, Pulse 89, T emperature 37.1 C (98.8 F), RR 18, SpO2 96%, BMI 29.07 kg/(m^2). Physical Exam on discharge: General: Alert, comfortable, NAD HEENT: Neck:trach well positioned and secure with soft collar, neck soft, flat, no hematoma, no cr epitus. Incision c/d/i Respiratory: breathing non-labored via trach mask Abdomen: soft, NT. G-tube intact Outstanding labs/studies: Surgical Pathology Discharging Physician: LAMIN OSULLIVAN PA-C Attending Physician: Pasquale Moscoso MD I spent 56 minutes in the care of this patient. Greater than 50% of the time was spent cou nseling and coordination of care, including physical examination, wound management and coord inating follow-up appointment. LAMIN OSULLIVAN PA-C Department of Otolaryngology/Head and Neck Surgery Mail Code PV01 [address] [place] [address] Pager [phone] Consult/Night/Weekend Pager: [phone] documented in this encounter Discharge Instructions Instructions Patti Hugo RN - 01/17/2018Formatting of this note might be differe nt from the original. Head and Neck Cancer: Care Instructions Your Care Instructions Head and neck cancer is the rapid growth of abnormal cells that usually starts in the mouth , nose, or throat area. These cancers can spread to nearby lymph nodes or organs, or to dist ant areas of the body. Most head and neck cancers are linked to tobacco or alcohol use. Treatment for head and neck cancer depends on what type of cancer you have and how far it h as spread. You may need surgery to remove the cancer. You also may take medicines (chemother apy) or get radiation treatments to kill the cancer cells, or you may need all three treatme nts. Treatment with chemotherapy or radiation can make you feel very tired and sick to your stom ach and may cause vomiting and diarrhea. Radiation may also make the treated area red and so re, although these symptoms go away after treatment ends. These treatments also can weaken y our immune system, raising your risk of infection. Finding out that you have cancer is scary. You may feel many emotions and may need some hel p coping. Seek out family, friends, and counselors for support. You also can do things at ho me to make yourself feel better while you go through treatment. Call the [employer] ( ) or visit its website at www.cancer.org for more information. Follow-up care is a motley part of your treatment and safety. Be sure to make and go to all ap pointments, and call your doctor if you are having problems. It's also a good idea to know y our test results and keep a list of the medicines you take. How can you care for yourself at home? Take your medicines exactly as prescribed. Call your doctor if you have any problems wit h your medicine. You may get medicine for nausea and vomiting if you have these side effects . Eat healthy food. If you do not feel like eating, try to eat food that has protein and e xtra calories to keep up your strength and prevent weight loss. Drink liquid meal replacemen ts for extra calories and protein. Try to eat your main meal early. Some people do better wi th small, frequent meals rather than one or two large ones. Your doctor may suggest a feeding tube if your mouth and throat are too sore to chew and swallow. This will help you get the right nutrition, a motley part of your recovery. Get some physical activity every day, but do not get too tired. Keep doing the hobbies y ou enjoy as your energy allows. Take steps to control your stress and workload. Learn relaxation techniques. Share your feelings. Stress and tension affect our emotions. By expressing your feelings to others, you may be able to understand and cope with them. Consider joining a support group. Talking about a problem with your spouse, a good frien d, or other people with similar problems is a good way to reduce tension and stress. Express yourself through art. Try writing, dance, art, or crafts to relieve tension. Rosalio e groups may be available just for people who have cancer. Be kind to your body and mind. Getting enough sleep, eating a healthy diet, and taking t marito to do things you enjoy can contribute to an overall feeling of balance in your life and can help reduce stress. Get help if you need it. Discuss your concerns with your doctor, counselor, or other [facility] professional. If you are vomiting or have diarrhea: Drink plenty of fluids (enough so that your urine is light yellow or clear like water) t o prevent dehydration. Choose water and other caffeine-free clear liquids. If you have kidne y, heart, or liver disease and have to limit fluids, talk with your doctor before you increa se the amount of fluids you drink. When you are able to eat, try clear soups, mild foods, and liquids until all symptoms ar e gone for 12 to 48 hours. Other good choices include dry toast, crackers, cooked cereal, an d gelatin dessert, such as Jell-O. If you have not already done so, prepare a list of advance directives. Advance directive s are instructions to your doctor and family members about what kind of care you want if you become unable to speak or express yourself. When should you call for help? Call 911 anytime you think you may need emergency care. For example, call if: ? You passed out (lost consciousness). ?Call your doctor now or seek immediate medical care if: ? You have a fever. ? You have abnormal bleeding. ? You have new or worse pain. ? You think you have an infection. ? You have new symptoms, such as a cough, belly pain, vomiting, diarrhea, or a rash. ?Watch closely for changes in your health, and be sure to contact your doctor if: ? You are much more tired than usual. ? You have swollen glands in your armpits, groin, or neck. ? You do not get better as expected. Where can you learn more? To learn more about "Head and Neck Cancer: Care Instructions", log into your Celect accoun t at [email or web address]. You can enter I202 in the "Video[employer] Library" search box. Not on [employer]? Review the [facility] section of your After Visit Summary for directions on red w to sign up. Current as of: February 25, 2017 Content Version: 11.5 9191-7930 [employer]. Care instructions adapted under license by [facility]. If you have questions about a medical condition or this instr uction, always ask your healthcare professional. [employer] disclaims any carlos anty or liability for your use of this information. Laryngectomy: What to Expect at Home Your Recovery Laryngectomy is the removal of all or part of the voice box (larynx). The voice box is in t he neck and contains the vocal cords. It also helps you swallow and breathe. After surgery, the area around the cut (incision) may be swollen or bruised. It may also fe el numb. This is common and may continue for a few weeks. You will probably need to take azalia n medicine for a few weeks. You may have a drain tube in your neck for 1 to 4 days after your surgery. You may have tro uble swallowing for several days after you go home. Also, you may have numbness in your neck and weakness in your face. Most of this goes away in 3 to 4 months. For 2 to 3 weeks, you will either get food through a tube that goes into your nose and down your throat to your stomach, or through a tube that goes directly into your stomach. Your d octor will give you detailed information on what and how you can eat using the feeding tube. Your ability to talk will depend on how much of your voice box was removed. If all of it wa s removed, you will need to learn new ways to communicate. If only a part of your voice box was removed, you may be able to talk after your throat has healed. Losing your ability to ta lk can be very upsetting and hard to accept. It can affect your self-image and lead to depre ssion. If you need help after surgery, you may want to consult with a counselor. If all of your voice box was removed, you will have a hole in your neck to help you breathe . This is called a stoma. A doctor or nurse will teach you how to care for the stoma. Most people go back to work or to their normal routine 6 to 8 weeks after going home. You w ill need more time to get better if you must have more treatment for cancer, such as chemoth erapy. This care sheet gives you a general idea about how long it will take for you to recover. Bu t each person recovers at a different pace. Follow the steps below to get better as quickly as possible. How can you care for yourself at home? Activity ? Rest when you feel tired. Getting enough sleep will help you recover. Sleep with your head up by using three or four pillows. You can also try to sleep with your head up in a rec lining chair. Do not sleep on your stomach. ? Try to walk each day. Start by walking a little more than you did the day before. Bit by bit, increase the amount you walk. Walking boosts blood flow and helps prevent pneumonia and constipation. You may climb stairs. ? Be careful while showering and shaving if you have a stoma in your neck. Do not get wa ter in the stoma, because it could get into your lungs. If you have a stoma, follow your doc tor's instructions on how to care for it. ? Do not lean your head back quickly or for a long time. This puts pressure on your neck and may slow your healing. ? Avoid strenuous activities, such as bicycle riding, jogging, weight lifting, or aerobi c exercise, until your doctor says it is okay. This includes mowing the lawn or shoveling sn ow. ? For about 6 weeks, avoid lifting anything that would make you strain. This may include a child, heavy grocery bags and milk containers, a heavy briefcase or backpack, cat litter or dog food bags, or a vacuum oil tank car cleaner. ? Ask your doctor when you can drive again. Diet ? Your diet will go from a clear liquid diet, to a full liquid diet, and then a soft t before you can eat normally. This generally takes 1 to 2 months. Most people are on a soft diet when they leave the hospital. Your doctor will give you specific information about wha t you can eat. ? If you are on a soft diet, eat foods that are easy to swallow and digest. These includ e pancakes and waffles; most cereals; scrambled eggs and omelets; canned or cooked fruits; f inely ground beef, chicken, turkey, and pork; mild cheeses; potatoes and pasta; and cooked v egetables. ? It is important to keep your weight and energy up. Do not fill up your stomach with sw eets like candy and cookies. Sweets may also make you feel lightheaded and cause a problem c alled dumping syndrome. Dumping syndrome can make you feel faint, bloated, shaky, and sick t o your stomach. It also can cause diarrhea. ? Sit up straight when you eat and for 30 to 60 minutes after you are done eating. This can help food move through your digestive tract. Try not to eat anything in the 3 hours befo re you go to bed. ? You may notice that your bowel movements are not regular right after your surgery. Thi s is common. Try to avoid constipation and straining with bowel movements. You may want to t ramin a fiber supplement every day. If you have not had a bowel movement after a couple of day s, ask your doctor about taking a mild laxative. Medicines ? Your doctor will tell you if and when you can restart your medicines. He or she will a lso give you instructions about taking any new medicines. ? If you take blood thinners, such as warfarin (Coumadin), clopidogrel (Plavix), or aspi rin, be sure to talk to your doctor. He or she will tell you if and when to start taking tho se medicines again. Make sure that you understand exactly what your doctor wants you to do. ? Be safe with medicines. Take pain medicines exactly as directed. If the doctor gave you a prescription medicine for pain, take it as prescribed. If you are not taking a prescription pain medicine, ask your doctor if you can take an o [id number]-[id number] medicine. ? If you think your pain medicine is making you sick to your stomach: Take your medicine after meals (unless your doctor has told you not to). Ask your doctor for a different pain medicine. ? Your doctor may prescribe antibiotics. Take them as directed. Do not stop taking them just because you feel better. You need to take the full course of antibiotics. Incision care ? If you have strips of tape on the incision, leave the tape on for a week or until it f alls off. ? Wash the area daily with warm, soapy water and pat it dry. Your doctor will tell you h ow to take care of this. Don't use hydrogen peroxide or alcohol, which can slow healing. You may cover the area with a gauze bandage if it weeps or rubs against clothing. Change the ba ndage every day. Other instructions ? If you have a stoma, keep it covered with a light cloth. This keeps out dust and parti cles that could enter your lungs and cause problems. ? You may want to use a humidifier to add moisture to the air. This keeps the stoma from drying out and getting crusty. ? It is normal to have some yellowish mucus around your feeding tube. This is not a sign of infection. Keep your feeding tube clamped unless you are using it. Keep it taped to your skin at all times. Be sure there is some slack in the tube so if you move suddenly, it does not pull out. ? If you cannot talk after surgery, a speech therapist will teach you new ways to commun icate. ? Find a counselor you like and trust if you are having trouble coping after surgery. Follow-up care is a motley part of your treatment and safety. Be sure to make and go to all ap pointments, and call your doctor if you are having problems. It's also a good idea to know y our test results and keep a list of the medicines you take. When should you call for help? Call 911 anytime you think you may need emergency care. For example, call if: ? You passed out (lost consciousness). ? You have sudden chest pain and shortness of breath, or you cough up blood. ? You have severe trouble breathing. ?Call your doctor now or seek immediate medical care if: ? You have pain that does not get better after you take pain medicine. ? You have blood leaking from your incision. ? You have signs of infection, such as: Increased pain, swelling, warmth, or redness. Red streaks leading from the incision. Pus draining from the incision. A fever. ?Watch closely for any changes in your health, and be sure to contact your doctor if: ? You are not getting better as expected. Where can you learn more? To learn more about "Laryngectomy: What to Expect at Home", log into your Celect account a t [email or web address]. You can enter I060 in the "[employer] Library" search box. Not on Celect? Review the [facility] section of your After Visit Summary for directions on red w to sign up. Current as of: February 25, 2017 Content Version: 11.5 4130-8526 [employer]. Care instructions adapted under license by [facility]. If you have questions about a medical condition or this instr uction, always ask your healthcare professional. [employer] disclaims any carlos anty or liability for your use of this information. Alcohol Harm Reduction Strategies 1) Safe Drinking--Plan Your Intox Day If you plan to get intoxicated on a given day take all necessary steps to insure that you d o not harm yourself or others. Planning ahead can save lives. 1.1) Driving, phoning, etc. If you habitually want to drive after you start drinking just make sure that this is imposs ible before taking the first drink. Give your car keys to a spouse or trusted friend before ever taking the first drink. Or somehow lock them away in such a manner that it is impossibl e to get at them until after you are sober. Do it before the first drink. If you are drinkin g outside the home then make sure to take public transportation there so that your car is no t available to drive home with. If you have a tendency to make embarrassing or problematic phone calls after you have start ed drinking, then make sure to unplug and lock away your telephone before you ever take the first drink. The same if you send weird emails when intoxicated--turn that computer off and hide it away first. Try to find a non-problematic habit such as listening to music while dri nking to distract you from those things which might cause yourself or another person harm. If there are any things which you tend to do which cause harm when you are intoxicated--fredrick e them impossible to do before you begin drinking. 1.2) Drinking At Home The statement that "drinking alone is a sign of alcoholism" is a myth--because "alcoholism" is a myth. Drinking alone at home can be much safer than going out and drinking in public i f your intent is to get intoxicated. If you are alone there is no one else to worry about ge tting into a fight with. Moreover, there are no worries about getting lost on the way home o r getting rolled or attacked or being tempted to drive. Drinking constantly whether alone or in company can be problematic because it can lead to physical dependency, but for some peop le drinking alone can be smarter than getting intoxicated in public. 1.3) Go Out With A Friend Going out drinking with a friend who you can trust to watch your back is safer than going o ut drinking alone. The back watching can and should be mutual. However, beware of companions who will egg you on into crazy behaviors. Not only can you help keep each other awake on th e subway ride home--predators who prey on drunks are more likely to go for people who are al one. 1.4) Carry Condoms Male or female, straight or art, ALWAYS carry condoms when you go out drinking. It is a goo d habit to always carry condoms period, whether drinking or not. When people drink their inh ibitions are lowered, and people who would never have sex with a stranger when sober may allison denly decide that this is a good idea when drunk. So have a condom handy and use it. 1.5) Mindset As Ney Dallas tells us, mindset is of major importance to one's behavior when drinking. G o into your intox day with plenty of planning ahead and a determination to be safe and this will help you go far towards reducing harm. 1.6) RU21, etc Some supplements such as RU21 claim to reduce the negative impact of the byproducts of alco hol metabolism. These may be worth taking as they may limit the amount of damage done to you r organs by heavy drinking, and may also help to ameliorate your morning after effects. 1.7) Take Your Vitamins Alcohol causes vitamin loss. Replace them and safeguard your health. 1.8) Avoid Impulse Drinking Drinking in reaction to anger is particularly likely to lead to a bad drinking episode. Unp lanned drinking episodes are also fraught with danger. 2) Reduced Drinking--Count and Schedule 2.1) You Have To Start Somewhere If your goal is reduced drinking then you have to start somewhere. If you have drank daily for a long time you may wish to start by doing just one abstinence day. Note: If you have be en drinking heavily for a long time you may need to taper off gradually to get to the first abstinence day in order to avoid potentially dangerous withdrawals.The first day of abs in a long time with none is always a great achievement. One is better than none, and better is a lways better. Going from drinking 14 drinks a day to 13 drinks a day is also an improvement. Better is better. Switching from drinking straight booze to beer or wine is also better. Re member that you have to start somewhere and no change is too small to count. And any change for the better no matter how small is your first victory! 2.2) Add Abstinence Days If you have done a few abstinence days then your abstinence muscle is getting strong--it is time to start scheduling abstinence days. Daily drinkers who want to reduce use should star t by scheduling at least one abstinence day per week--although there is no limit on the amou nt you may start scheduling. You may choose to jump right in and schedule six abstinence day s a week--or you may want to jump right into an abstinence period of 2 weeks or 30 days or e tiffany more. You know better than anyone else what you are ready for and what you want to do. 2.3) Schedule your intox days Schedule your intox days so that they do not interfere with important things like work or s chool. 2.4 Choose Your Harm Reduction Plan Choose which and how many days each week you wish to abstain (try for at least one--althoug h more is generally better). Choose which and how many days each week you wish to drink mode rately (this may be zero if you don't like moderating). Choose which and how many days you w miguel to get intoxicated. This is the skeleton of the Harm Reduction Plan. Flesh this out by d cintiaiding where and under what circumstances you will do mods, abs, or intox--and you have a f ull fledged harm reduction plan. 2.5) Buy Only When You Drink This strategy is not for everyone, but some people who primarily drink at home choose not t o have alcohol in their house on abstinence days--they buy it only on the days when they int end to drink. Some people with blue laws in their states even use Tuesday--the day on which b ooze is not sold--as their sober up day--on purpose. 2.6 Avoiding The [employer] Pack[employer] Sealer If you sometimes tend to drink the morning after then it is good to have a plan to avoid th e eye-armature connector. One thing which can help is to buy only what you intend to drink and finish it that same night--it may be too much effort to go out and get more the next day then. 2.7 Reduce Daily Intake Instead of reducing the number of days you drink per week (or month) you may choose to redu ce the number of drinks you drink per day. Or you may choose to do both. 3) Avoiding Blackouts Blackouts are no fun. People's behavior often changes for the worse during a black out and the do things which fill the with remorse when they are told of them the following day. Olivier gil, most people can avoid blackouts by using the following tips. 3.1 Eat Before Drinking And Be Well Hydrated If your stomach is full alcohol will enter your bloodstream much more slowly than if you dr ink on an empty stomach. Being well hydrated before you drink alcohol will help you to drink more slowly. Blackouts are caused by a rapid peaking of Blood Alcohol Concentration (ALEX). Both these strategies will help prevent this rapid peak. The reasons why they work are given in detail in the section on moderation. 3.2 Slow The Pace Slow the pace of your drinking by switching from straight booze to wine or beer or by alter nating real drinks with non alcoholic drinks. This helps stop blackouts. 3.3 Beware Sleep Deprivation If you drink when suffering sleep deprivation you are much more likely to have a blackout t vaca otherwise. 4) Rank The Potential Harms Things which may immediately kill yourself or someone else rank as such as drunk driving or drunk chainsaw juggling rank as MORE harmful than things which may eventually have a bad ef fect down the line such as bone loss from failure to take your vitamins. When you are sober stop and take the time to rank which of your drinking behaviors have the greatest potential harm to yourself or someone else and make it a priority to eliminate those FIRST. documented in this encounter Medications at Time [...] + + + +---------+ + + | chlorhexidine 0.12 | Take 15 mL by mouth | 946 mL | 0 | 01/24/20 | | | % mucous membrane | two times daily. | | | 18 | 8 | | mouthwash | Swish undiluted oral | | | | | | | rinse around in | | | | | | | mouth for 30 | | | | | | | seconds, then spit. | | | | | | | Do not swallow. | | | | | + + + +---------+ + + documented as of this encounter Progress Notes Steven Vidal SLP - 01/23/2018 9:59 AM PDTENT SPEECH PATHOLOGIST-INPATIENT NOTE Pt getting ready to DC home today. Reports pain well-managed, comfortable with trach and G- tube care. No additional questions or concerns at this time. Has questions about when he shaila l be cleared for voicing. Likely not until first OP visit. Will f/u post DC. Steven Vidal, PhD, CCC-CUT ORDER HAND [facility], [place]- [address] [place] [address] [facility] Ronni Borjas MD - 01/22/2018 9:18 AM PDTFormatting of this note might be different fr om the original. Head and Neck Surgery Inpatient Daily Progress Note: Date: 01/22/2018 Primary Care Provider: Daniel Cannon MD Admission Date: 01/16/2018 RONNI MAHMOOD, [id number] Hospital Day #6 SUBJECTIVE INTERVAL EVENTS: -overnight had some episodes of tachycardia (120s) and desat to 80s related to secretions, not wearing O2 mask -otherwise doing well -doing well with 6CFS -compression wrap removed today -WBC stable at 12 OBJECTIVE Last 24 hour min/max Temp: 36.6 C (97.9 F) Temp Min: 36.2 C (97.2 F) Max: 36.7 C (98.1 F) Pulse: 106 Pulse Min: 91 Max: 118 Resp: 18 Resp Min: 18 Max: 22 BP: 138/75 BP Min: 119/77 Max: 158/89 SpO2: 93 % SpO2 Min: 84 % Max: 95 % Body mass index is 29.07 kg/m. Intake/Output Summary (Last 24 hours) at 01/22/18 0918 Last data filed at 01/22/18 0800 Gross per 24 hour Intake 2660 ml Output 885 ml Net 1775 ml DERRICK right neck: 35 ml, SS PHYSICAL EXAM: General: Alert, comfortable, NAD HEENT: Neck: compression dressing removed, trach well positioned and secure, neck soft, flat, no h ematoma, no crepitus. Incision c/d/i Respiratory: breathing non-labored on RA. Drain holding suction LABS: Reviewed: lytes unremarkable, WBC downtrending Recent Labs 01/20/18 0514 01/21/18 0526 01/22/18 0446 NA 135* 139 139 K 4.1 3.9 3.7 CL 101 104 105 BICARB 28 30 26 BUN 9 11 13 CR 0.83 0.81 0.73 GLU 114* 135* 98 CA 8.7 8.5* 9.0 Recent Labs 01/20/18 0514 01/21/18 0526 01/22/18 0446 MG 2.2 2.5 2.4 Recent Labs 01/20/18 0514 01/21/18 0526 01/22/18 0446 WBC 16.83* 13.70* 12.04* RBC 3.78* 3.30* 3.45* HB 12.6* 10.8* 11.2* HCT 37.0* 32.9* 34.3* PLT 237 235 284 Recent Labs 01/16/18 0629 APTT 29.2 FIBRINOGEN 381 CBG's Recent Labs 01/16/18 0629 01/16/18 0632 01/16/18 1754 01/17/18 0506 01/18/18 0506 01/19/18 0510 01/20/18 0514 01/21/18 0526 01/22/18 0446 GLU 98 98 172* 129* 126* 103* 114* 135* 98 ASSESSMENT/PLAN: Ronni Mahmood is a 47 y.o. 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 If not holding on to bulb suction, please place to LCIWS. -Will remove compression dressing day prior to discharge -ENT CUT ORDER HAND to follow for communication and spitting trials -Peridex for oral care #Trach care: -Continue 6cfs trach -RT DC mechanical planner following for trach supplies -ENT CUT ORDER HAND working with pt spitting trials #FEN/GI -Follow and replete lytes prn for tube feeding -NPO. Okay for oral swabs for comfort -Continue bolus TFs #Anxiety: episodic, primarily in evening -Serqouel 12.5 at bedtime prn #Deconditoned: PT following Chronic conditions: #Alcohol abuse: No signs of withdrawal #HTN: Amlodipine #Asthma: Home inhalers on board #Tobacco abuse: Nicotine patch Prophylaxis Antibiotics: lactobacillus Activity: Out of bed to chair & ambulate ad rosette. Thromboembolism PPY: high risk for VTE - SCD's/OOB TID/Lovenox ppx Ulcer Prevention: Famotidine Glycemic Control: SSI if needed High risk, pneumonia: Wean O2 as tolerated Constipation: Scheduled and PRN bowel regimen Dispo: Continue acute care for airway monitoring. Dispo pending clinical course, likely Tue01/23/18. Patient evaluated with Dr. Casper Wright MD. Ronni Louis MD Resident Physician, PGY-3 Otolaryngology/ Head & Neck Surgery Pager [phone] Associated attestation - Casper Wright MD - 01/22/2018 10:08 AM PDT PATIENT NAME: Ronni Mahmood [facility] MR#: [id number] : 1970 PRIMARY CARE PROVIDER: Daniel Cannon MD I have reviewed the resident's note for this day's hospitalization and I have examined Mr. Mahmood. ASSESSMENT: Mr. Mahmood remains hospitalized for postoperative care. PLAN: I agree with the resident's findings, assessment, and plans as outlined. Casper Wright MD, FACS Otolaryngology-Head & Neck Surgery May Newsome, LESTER - 01/21/2018 12:02 PM PDT INPATIENT ENT SPEECH PROGRESS NOTE: PCP: Daniel Cannon MD Medical Diagnosis: Glottic Cancer Treatment Diagnosis: Aphonia, Dysphagia Start of Care Date: 01/17/2018 SUBJECTIVE: Ronni Mahmood is a 47 [address] Moscoso who is familiar to our servic e from OP pre-operative evaluation and voice evaluation. The patient is now s/p the followi ng on 01/16/18: PROCEDURE: direct microlaryngoscopy, upper GI endoscopy with percutaneous endogastric tub e placement, supracricoid partial laryngectomy sparing left arytenoid, cricohyoidoepiglottop exy, rightmodified radical neck dissection, tracheotomy tube placement. Pt seen this afternoon sitting up in bed, present on laptop. Endorses the sensation of increased secretions since trach change yesterday, but appears to be tolerating well. RELEVANT MEDICAL HISTORY: Patient ingests 18+ beers a night and drinks 64+oz of caffeine a day, prior to admission. Patient Active Problem List Diagnosis Date Noted T3N0 SCCa, right glottis 01/05/2018 Dysphonia 01/05/2018 COMMUNICATION STATUS: Aphonic, on strict voice rest. Patient with [address], hu midification mask in place. Patient is writing for communication. He reports he is getting his needs met with this. Prior to admission the patient was verbal though with severe dysph onia and periods of aphonia. 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 DIETARY STATUS: PEG for all nutrition/hydration/medication. Prior to admission the patient was eating a regular diet with no restriction or complaints. OBJECTIVE: Spitting Protocol - Patient to continue Spit Protocol - reviewed and modeled proper spit pr otocol, the need to clear tongue base secretions as well as oral secretions. Pt demonstrates appropriately x2. Patient Education and Counseling - Reviewed rational for the Spit Protocol. Reviewed need for strict voice rest and continuing to avoid swallowing secretions at this time. Pt reports feeling claustrophobic in room. Possible DC home Tuesday. Encouraged pt to continue getting up and walking around room until then. ASSESSMENT: Continues to manage Spitting Protocol well and tracheal secretions. Not cleared for p.o. And is on strict voice rest at this time. Communicating well via writing and non v erbal means. PLAN: Will follow for Spit Protocol and communication needs. May Newsome MS, CF-CUT ORDER HAND Speech-Language Pathology Fellow [facility] Otolaryngology, Head and Neck Surgery [facility] [phone] olt, Callum De Oliveira MD - 8:17 AM PDT Head and Neck Surgery Inpatient Daily Progress Note: Date: 01/21/2018 Primary Care Provider: Daniel Cannon MD Admission Date: 01/16/2018 RONNI MAHMOOD, [id number] Hospital Day #5 SUBJECTIVE INTERVAL EVENTS: -No acute or respiratory issues overnight -Still intermittently tachy in low 100's but remains asymptomatic and HD stable. Euvolemic without evidence of infection on lawrence-operative unasyn with WBC downtrending. -Pain tolerable. Tolerating tube feeds. Ambulating. Voiding bladder without difficulty. -Trach changed to 6 cuffless yesterday -Pt performing trach cares independently OBJECTIVE Last 24 hour min/max Temp: 37 C (98.6 F) Temp Min: 36.8 C (98.2 F) Max: 37.7 C (99.9 F) Pulse: 104 Pulse Min: 78 Max: 117 Resp: 18 Resp Min: 16 Max: 18 BP: 119/71 BP Min: 102/88 Max: 146/81 SpO2: 91 % SpO2 Min: 86 % Max: 98 % Body mass index is 29.07 kg/m. Intake/Output Summary (Last 24 hours) at 01/21/18 0817 Last data filed at 01/21/18 0640 Gross per 24 hour Intake 2940 ml Output 505 ml Net 2435 ml DERRICK right neck: 55 ml, SS PHYSICAL EXAM: General: Alert, comfortable, NAD HEENT: Neck: compression dressing intact, trach well positioned and secure with cuff deflated, nec k soft, flat, no hematoma, no crepitus. Incision c/d/i Respiratory: breathing non-labored on RA. Chest: CTA BL Abdomen: soft, appropriate tenderness around the G-tube LABS: Reviewed: lytes unremarkable, WBC downtrending Recent Labs 01/19/18 0510 01/20/18 0514 01/21/18 0526 NA 135* 135* 139 K 3.8 4.1 3.9 CL 100 101 104 BICARB 27 28 30 BUN 8 9 11 CR 0.76 0.83 0.81 GLU 103* 114* 135* CA 8.6 8.7 8.5* Recent Labs 01/19/18 0510 01/20/18 0514 01/21/18 0526 MG 2.2 2.2 2.5 Recent Labs 01/19/18 0510 01/20/18 0514 01/21/18 0526 WBC 15.36* 16.83* 13.70* RBC 3.83* 3.78* 3.30* HB 12.7* 12.6* 10.8* HCT 37.0* 37.0* 32.9* PLT 179 237 235 Recent Labs 01/16/18 0629 APTT 29.2 FIBRINOGEN 381 CBG's Recent Labs 01/16/18 0629 01/16/18 0632 01/16/18 1754 01/17/18 0506 01/18/18 0506 01/19/18 0510 01/20/18 0514 01/21/18 0526 GLU 98 98 172* 129* 126* 103* 114* 135* ASSESSMENT/PLAN: Ronni Mahmood is a 47 y.o. 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 Heal ing well without sign of post-operative complication. 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 If not holding on to bulb suction, please place to LCIWS, wh ile pt ambulating please leave the neck drain cap out especially the neck drain that is not holding onto bulb suction (discussed with the nursing staff and placed on nursing communicat ion). -Will remove compression dressing day prior to discharge -ENT CUT ORDER HAND to follow for communication and spitting trials -Peridex for oral care #Trach care: -Continue 6cfs trach -RT DC mechanical planner following for trach supplies -ENT CUT ORDER HAND working with pt spitting trials #FEN/GI -Follow and replete lytes prn for tube feeding -NPO. Okay for oral swabs for comfort -Continue bolus TFs #Anxiety: episodic, primarily in evening -Serqouel 12.5 at bedtime prn #Deconditoned: PT following Chronic conditions: #Alcohol abuse: No signs of withdrawal #HTN: Amlodipine #Asthma: Home inhalers on board #Tobacco abuse: Nicotine patch Prophylaxis Antibiotics: lactobacillus Activity: Out of bed to chair & ambulate ad rosette. Thromboembolism PPY: high risk for VTE - SCD's/OOB TID/Lovenox ppx Ulcer Prevention: Famotidine Glycemic Control: SSI if needed High risk, pneumonia: Wean O2 as tolerated Constipation: Scheduled and PRN bowel regimen Dispo: Continue acute care for airway monitoring. Dispo pending clinical course, likely Tue01/23/18. Patient evaluated with Dr. Casper Wright MD. Callum Oconnell MD R4 Otolaryngology-Head and Neck Surgery [facility] Pager [phone] Associated attestation - Casper Wright MD - 01/22/2018 8:03 AM PDT PATIENT NAME: Ronni Mahmood [facility] MR#: [id number] : 1970 PRIMARY CARE PROVIDER: Daniel Cannon MD I have reviewed the resident's note for this day's hospitalization and I have examined Mr. Mahmood. ASSESSMENT: Mr. Mahmood remains hospitalized for postoperative care. PLAN: I agree with the resident's findings, assessment, and plans as outlined. Casper Wright MD, FACS Otolaryngology-Head & Neck Surgery Ruth Marinelli, LESTER - 01/20/2018 3:43 PM PDTFormatting of this note might be different fr om the original. INPATIENT ENT SPEECH PROGRESS NOTE: PCP: Daniel Cannon MD Medical Diagnosis: Glottic Cancer Treatment Diagnosis: Aphonia, Dysphagia Start of Care Date: 01/17/2018 SUBJECTIVE: Ronni Mahmood is a 47 [address] Moscoso who is familiar to our servic e from OP pre-operative evaluation and voice evaluation. The patient is now s/p the followi ng on 01/16/18: PROCEDURE: direct microlaryngoscopy, upper GI endoscopy with percutaneous endogastric tub e placement, supracricoid partial laryngectomy sparing left arytenoid, cricohyoidoepiglottop exy, rightmodified radical neck dissection, tracheotomy tube placement. Pt seen this afternoon doing his trach care, trach just changed to 6CFS. Pt reports he is doing well overall. He is independently suctioning secretions via trach and spitting thinn er secretions via mouth. RELEVANT MEDICAL HISTORY: Patient ingests 18+ beers a night and drinks 64+oz of caffeine a day, prior to admission. Patient Active Problem List Diagnosis Date Noted T3N0 SCCa, right glottis 01/05/2018 Dysphonia 01/05/2018 COMMUNICATION STATUS: Aphonic, on strict voice rest. Patient with [address], hu midification mask in place. Patient is writing for communication. He reports he is getting his needs met with this. Prior to admission the patient was verbal though with severe dysph onia and periods of aphonia. 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 DIETARY STATUS: PEG for all nutrition/hydration/medication. Prior to admission the patient was eating a regular diet with no restriction or complaints. OBJECTIVE: Spitting Protocol - Patient to continue Pit Protocol - reviewed and modeled proper spit pro tocol, the need to clear tongue base secretions as well as oral secretions. Patient Education and Counseling - Reviewed rational for the Spit Protocol. Addressed need for voice rest and to avoid swallowing secretions at this time. Reviewed importance of pulm onary health and need to get up and walk around as well as cough/clear pulmonary secretions as needed. Discussed rationale for remaining NPO until cleared medically and reviewed typica l timeline for voice and swallowing. Discussed decannulation course as well as swallow rehab ilitation course. ASSESSMENT: Continues to manage Spitting Protocol well and tracheal secretions. Not cleared for p.o. And is on strict voice rest at this time. Communicating well via writing and non v erbal means. PLAN: Will follow for Spit Protocol and communication needs. Ruth Marinelli, Ph.D., CCC-CUT ORDER HAND Physical Anthropologist Director, [facility] Otolaryngology, Head and Neck Surgery [facility] [phone] Lamin Priutt PA -C - 01/20/2018 9:38 AM PDT DOS: 01/19/2018 Head and Neck Surgery Inpatient Daily Progress Note: Primary Care Provider: Daniel Cannon MD Admission Date: 01/16/2018 RONNI MAHMOOD, [id number] Hospital Day #4 SUBJECTIVE INTERVAL EVENTS: -No acute or respiratory issues overnight -Tachy in low 100's, but assx. Pt's pre op HR in the 90's -pt anxious and scoring zero on CIWA protocol thus dc'd it this am -Voiding with no issues -suctioning q 4 hrs, copious amount of secretions -left neck drain with murky discharge on LCIWS, started on Ancef this am. WBC 15>16. AF. OBJECTIVE Last 24 hour min/max Temp: 37.7 C (99.9 F) Temp Min: 36.7 C (98.1 F) Max: 37.7 C (99.9 F) Pulse: 107 Pulse Min: 101 Max: 109 Resp: 16 Resp Min: 16 Max: 18 BP: 133/84 BP Min: 117/76 Max: 144/78 SpO2: 91 % SpO2 Min: 90 % Max: 95 % Body mass index is 29.07 kg/m. Intake/Output Summary (Last 24 hours) at 01/20/18 0938 Last data filed at 01/20/18 0900 Gross per 24 hour Intake 3295 ml Output 1518 ml Net 1777 ml DERRICK right neck: 15 ml, SS on bulb suction DERRICK left neck: 53 ml, murky discharge on LCIWS PHYSICAL EXAM: General: Alert, comfortable, NAD HEENT: Neck: compression dressing intact, trach intact with cuff down, soft, flat, no hematoma, no crepitus. Incision c/d/i Respiratory: breathing non-labored on RA. Chest: CTA BL Abdomen: soft, appropriate tenderness around the G-tube LABS: Recent Labs 01/18/18 0506 01/19/18 0510 01/20/18 0514 NA 136 135* 135* K 3.5 3.8 4.1 CL 102 100 101 BICARB 29 27 28 BUN 8 8 9 CR 0.73 0.76 0.83 GLU 126* 103* 114* CA 8.3* 8.6 8.7 Recent Labs 01/18/18 0506 01/19/18 0510 01/20/18 0514 MG 1.8 2.2 2.2 Recent Labs 01/18/18 0506 01/19/18 0510 01/20/18 0514 WBC 15.06* 15.36* 16.83* RBC 3.84* 3.83* 3.78* HB 12.6* 12.7* 12.6* HCT 36.6* 37.0* 37.0* PLT 175 179 237 Recent Labs 01/16/18 0629 APTT 29.2 FIBRINOGEN 381 CBG's Recent Labs 01/16/18 0629 01/16/18 0632 01/16/18 1754 01/17/18 0506 01/18/18 0506 01/19/18 0510 01/20/18 0514 GLU 98 98 172* 129* 126* 103* 114* ASSESSMENT/PLAN: Ronni Mahmood is a 47 y.o. 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 Plan to remove the left neck drain after trach change today. WBC 15>16. AF, Lungs CTA B. Wi ll monitor. Started Ancef this am. Replace the compression dressing during the trach change -ENT CUT ORDER HAND to follow for communication and spitting trials -Peridex for oral care #Trach care: -Downsize trach on Tuesday to a 6 cfs today -RT on board with trach supplies -Pt learning to take care of the trach -ENT CUT ORDER HAND working with pt spitting trials #FEN/GI -Lytes wnl this am -NPO, okay for oral swabs for comfort -Bolus TFs -Voiding with no issues #Agigtated #Anxious -Added Serqouel 12.5 at bedtime prn #Deconditoned: PT following Chronic conditions: #Alcohol abuse: Dc'd this am. Pt mainly anxious and scoring zero on the CIWA protocol #HTN: Amlodipine #Asthma: Home inhalers on board #Tobacco abuse: Nicotine patch Prophylaxis Antibiotics: lactobacillus Activity: Out of bed to chair & ambulate ad rosette. Thromboembolism PPY: high risk for VTE - SCD's/OOB TID/Lovenox ppx Ulcer Prevention: Famotidine Glycemic Control: SSI if needed High risk, pneumonia: Wean O2 as tolerated Constipation: Scheduled and PRN bowel regimen Dispo: pending clinical course LAMIN OSULLIVAN PA-C Otolaryngology-Head and Neck Surgery [facility] Pager [phone] May Saul, LESTER - 01/19/2018 1:02 PM PDT INPATIENT ENT SPEECH PROGRESS NOTE: PCP: Daniel Cannon MD Medical Diagnosis: Glottic Cancer Treatment Diagnosis: Aphonia, Dysphagia Start of Care Date: 01/17/2018 SUBJECTIVE: Ronni Mahmood is a 47 [address] Moscoso who is familiar to our servic e from OP pre-operative evaluation and voice evaluation. The patient is now s/p the followi ng on 01/16/18: PROCEDURE: direct microlaryngoscopy, upper GI endoscopy with percutaneous endogastric tub e placement, supracricoid partial laryngectomy sparing left arytenoid, cricohyoidoepiglottop exy, rightmodified radical neck dissection, tracheotomy tube placement. Pt seen this afternoon sitting up in bed working from a laptop. Home suction supplier prese nt and providing education to pt and . Pt reports he is doing well overall. Pain has rem ained fairly consistently at 5/10. Pt questions when he will be able to swallow again. He i s independently suctioning secretions via trach and spitting thinner secretions via mouth. RELEVANT MEDICAL HISTORY: Patient ingests 18+ beers a night and drinks 64+oz of caffeine a day, prior to admission. Patient Active Problem List Diagnosis Date Noted T3N0 SCCa, right glottis 01/05/2018 Dysphonia 01/05/2018 COMMUNICATION STATUS: Aphonic, on strict voice rest. Patient with trach in place, cuff daryl n, humidification mask in place. Patient is writing and texting for communication. He repor ts he is getting his needs met with this. Prior to admission the patient was verbal though with severe dysphonia and periods of aphonia. 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 DIETARY STATUS: PEG for all nutrition/hydration/medication. Prior to admission the patient was eating a regular diet with no restriction or complaints. OBJECTIVE: Spitting Protocol - reviewed and modeled proper spit protocol, the need to clear tongue bas e secretions as well as oral secretions. Patient able to demonstrate this well with 3/3 prod uctive trials. Patient Education and Counseling - Reviewed rational for the Spit Protocol. Addressed need for voice rest and to avoid swallowing secretions at this time. Reviewed importance of pulm onary health and need to get up and walk around as well as cough/clear pulmonary secretions as needed. Discussed rationale for remaining NPO until cleared medically and reviewed typica l timeline for voice and swallowing. Deferred all specific timeline questions to surgical te am. ASSESSMENT: Continues to manage Spitting Protocol well and tracheal secretions. Not cleared for p.o. And is on strict voice rest at this time. Communicating well via writing and non v erbal means. PLAN: Will follow for Spit Protocol and communication needs. May Newsome MS, CF-CUT ORDER HAND Speech-Language Pathology Fellow [facility] Dept. of Otolaryngology, [id number] [facility] [place] [phone] Lamin Pruitt PA-C - 01/19/2018 7:48 AM PDT DOS: 01/18/2018 Head and Neck Surgery Inpatient Daily Progress Note: Primary Care Provider: Daniel Cannon MD Admission Date: 01/16/2018 RONNI MAHMOOD, [id number] Hospital Day #3 SUBJECTIVE INTERVAL EVENTS: -No acute or respiratory issues overnight -Febrile tmax 38, Tachy to low 100's. On CIWA protocol, scored 10, got a dose of Ativan. Pam ngs CTA BL. Increase oral secretions. DERRICK left neck drain not holding to bulb suction. Will c ontinue to monitor for now -Re-dress the neck compression dressing this am, incision c/d/i -Voiding with no issues OBJECTIVE Last 24 hour min/max Temp: 38 C (100.4 F) Temp Min: 37 C (98.6 F) Max: 38 C (100.4 F) Pulse: 108 Pulse Min: 98 Max: 110 Resp: 18 Resp Min: 16 Max: 18 BP: 135/84 BP Min: 132/76 Max: 140/82 SpO2: 91 % SpO2 Min: 87 % Max: 100 % Body mass index is 29.07 kg/m. Intake/Output Summary (Last 24 hours) at 01/19/18 0748 Last data filed at 01/19/18 0600 Gross per 24 hour Intake 3945 ml Output 1889 ml Net 2056 ml DERRICK right neck: 47 ml, SS on bulb suction DERRICK left neck: 42 ml, SS to LCIWS PHYSICAL EXAM: General: Alert, comfortable, NAD HEENT: Neck: compression dressing intact, trach intact with cuff down, soft, flat, no hematoma, no crepitus. Incision c/d/i Respiratory: breathing non-labored on RA. Chest: CTA BL Abdomen: soft, appropriate tenderness around the G-tube LABS: Recent Labs 01/17/18 0506 01/18/18 0506 01/19/18 0510 NA 137 136 135* K 3.7 3.5 3.8 CL 101 102 100 BICARB 28 29 27 BUN 7 8 8 CR 0.75 0.73 0.76 GLU 129* 126* 103* CA 8.8 8.3* 8.6 Recent Labs 01/17/18 0506 01/18/18 0506 01/19/18 0510 MG 2.0 1.8 2.2 Recent Labs 01/17/18 0506 01/18/18 0506 01/19/18 0510 WBC 22.20* 15.06* 15.36* RBC 4.51 3.84* 3.83* HB 14.8 12.6* 12.7* HCT 43.5 36.6* 37.0* PLT 243 175 179 Recent Labs 01/16/18 0629 APTT 29.2 FIBRINOGEN 381 CBG's Recent Labs 01/16/18 0629 01/16/18 0632 01/16/18 1754 01/17/18 0506 01/18/18 0506 01/19/18 0510 GLU 98 98 172* 129* 126* 103* ASSESSMENT/PLAN: Ronni Mahmood is a 47 y.o. 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, dysphonia -F/u with final path -continue post op pain management -continue DERRICK neck drains, if not holding on to bulb suction, please place to LCIWS, while p t ambulating please leave the neck drain cap out especially the neck drain that is not holdi ng onto bulb suction (discussed with the nursing staff and placed on nursing communication) -ENT CUT ORDER HAND to follow for communication and spitting trials -Peridex for oral care #Trach care: -Downsize trach on Tuesday to a 6 cfs -RT on board with trach supplies -Pt learning to take care of the trach -ENT CUT ORDER HAND working with pt spitting trials #FEN/GI -Lytes wnl this am -NPO, okay for oral swabs for comfort -Bolus TFs -Voiding with no issues #Deconditoned: PT following Chronic conditions: #Alcohol abuse: CIWA protocol, required one dose of Ativan over 24 hrs, currently stable #HTN: Amlodipine #Asthma: Home inhalers on board #Tobacco abuse: Nicotine patch Prophylaxis Antibiotics: lactobacillus Activity: Out of bed to chair & ambulate ad rosette. Thromboembolism PPY: high risk for VTE - SCD's/OOB TID/Lovenox ppx Ulcer Prevention: Famotidine Glycemic Control: SSI if needed High risk, pneumonia: Wean O2 as tolerated Constipation: Scheduled and PRN bowel regimen Dispo: pending clinical course LAMIN OSULLIVAN PA-C Otolaryngology-Head and Neck Surgery [facility] Pager [phone] Bina Flowers MA, CCC-CUT ORDER HAND - 01/18/2018 10:47 AM PDTFormatting of this note might be different from the [facility] INPATIENT ENT SPEECH PROGRESS NOTE: PCP: Daniel Cannon MD Medical Diagnosis: Glottic Cancer Treatment Diagnosis: Aphonia, Dysphagia Start of Care Date: 01/17/2018 SUBJECTIVE: Ronni Mahmood is a 47 [address] Moscoso who is familiar to our servic e from OP pre-operative evaluation and voice evaluation. The patient is now s/p the followi ng on 01/16/18: PROCEDURE: direct microlaryngoscopy, upper GI endoscopy with percutaneous endogastric tub e placement, supracricoid partial laryngectomy sparing left arytenoid, cricohyoidoepiglottop exy, rightmodified radical neck dissection, tracheotomy tube placement. Patient and report that patient is "feeling much better" today. He reported that he hearn s been using the spitting protocol throughout the day and has been diligent with his voice r est. RELEVANT MEDICAL HISTORY: Patient ingests 18+ beers a night and drinks 64+oz of caffeine a day, prior to admission. Patient Active Problem List Diagnosis Date Noted T3N0 SCCa, right glottis 01/05/2018 Dysphonia 01/05/2018 COMMUNICATION STATUS: Aphonic, on strict voice rest. Patient with trach in place, cuff daryl n, humidification mask in place. Per patient and RN, patient receiving trach management zaire barrow. Patient is writing and texting for communication. He reports he is getting his needs met with this. Prior to admission the patient was verbal though with severe dysphonia and p eriods of aphonia. 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 DIETARY STATUS: PEG for all nutrition/hydration/medication. Prior to admission the patient was eating a regular diet with no restriction or complaints. OBJECTIVE: Spitting Protocol - reviewed and modeled proper spit protocol, the need to clear tongue bas e secretions as well as oral secretions. He complained of thicker secretions, but is managin g. Patient able to demonstrate this well and is independent. Patient Education and Counseling - Reviewed rational for the Spit Protocol. Addressed need for voice rest and to avoid swallowing secretions at this time. Reviewed importance of pulm onary health and need to get up and walk around as well as cough/clear pulmonary secretions as needed. Patient with questions regarding suction, advised to use "fish" if he feels that he is having difficulty breathing and/or occasionally throughout the day for secretion manag ement. ASSESSMENT: Continues to manage Spitting Protocol well and tracheal secretions. Not cleared for p.o. And is on strict voice rest at this time. Communicating well via writing and non v erbal means. PLAN: Will follow for Spit Protocol and communication needs. Bina Chavez M.S. CCC-CUT ORDER HAND Speech-Language Pathologist [facility] Dept. of Otolaryngology, [id number] [facility] [place] [phone] uaquin Osullivan PA-C - 01/18/2018 5:44 AM PDTFormatting of this note might be different from the raul l. DOS: 01/17/2018 Head and Neck Surgery Inpatient Daily Progress Note: Primary Care Provider: Daniel Cannon MD Admission Date: 01/16/2018 RONNI Renée MAHMOOD, [id number] Hospital Day #2 SUBJECTIVE INTERVAL EVENTS: -No acute or respiratory issues overnight -Bolus TFs this am OBJECTIVE Last 24 hour min/max Temp: 37.2 C (99 F) Temp Min: 36.6 C (97.9 F) Max: 37.6 C (99.7 F) Pulse: 99 Pulse Min: 99 Max: 118 Resp: 16 Resp Min: 16 Max: 18 BP: (!) 143/92 BP Min: 133/89 Max: 169/91 SpO2: 95 % SpO2 Min: 93 % Max: 100 % Body mass index is 29.07 kg/m. Intake/Output Summary (Last 24 hours) at 01/18/18 0587 Last data filed at 01/18/18 0582 Gross per 24 hour Intake 3782.5 ml Output 1105 ml Net 2677.5 ml DERRICK right neck: 40 ml, SS DERRICK left neck: 20 ml, SS PHYSICAL EXAM: General: Alert, comfortable, NAD HEENT: Neck: compression dressing intact, trach intact with cuff down, soft, flat, no hematoma, no crepitus. Incision c/d/i Drains bilateral on bulb suction with SS drainage Respiratory: breathing non-labored on RA. Abdomen: soft, appropriate tenderness around the G-tue LABS: Recent Labs 01/16/18 0629 01/16/18 0632 01/16/18 1754 01/17/18 0506 NA 137 -- -- 137 K 3.6 -- -- 3.7 CL 104 -- -- 101 BICARB 25 -- -- 28 BUN 7 -- -- 7 CR 0.74 -- -- 0.75 GLU 98 98 172* 129* CA 8.9 -- -- 8.8 Recent Labs 01/17/18 0506 MG 2.0 Recent Labs 01/16/18 0629 01/17/18 0506 01/18/18 0506 WBC 6.71 22.20* 15.06* RBC 4.41* 4.51 3.84* HB 14.5 14.8 12.6* HCT 41.4 43.5 36.6* PLT 228 243 175 Recent Labs 01/16/18 0629 APTT 29.2 FIBRINOGEN 381 CBG's Recent Labs 01/16/18 0629 01/16/18 0632 01/16/18 1754 01/17/18 0506 GLU 98 98 172* 129* ASSESSMENT/PLAN: Ronni Mahmood is a 47 y.o. 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, dysphonia -F/u with final path -continue post op pain management -continue DERRICK neck drains -ENT CUT ORDER HAND to follow for communication and spitting trials -Peridex for oral care #Trach care: -Downsize trach either Tuesday or Tuesday -RT on board with trach supplies -Pt learning to take care of the trach -ENT CUT ORDER HAND working with pt spitting trials #FEN/GI -Replaced K, Mg and phos this am -NPO, okay for oral swabs for comfort -Bolus TFs -Voiding with no issues #Deconditoned: PT following Chronic conditions: #Alcohol abuse: CIWA protocol #HTN: Amlodipine #Asthma: Home inhalers on board #Tobacco abuse: Nicotine patch Prophylaxis Antibiotics: lactobacillus Activity: Out of bed to chair & ambulate ad rosette. Thromboembolism PPY: high risk for VTE - SCD's/OOB TID/Lovenox ppx Ulcer Prevention: Famotidine Glycemic Control: SSI if needed High risk, pneumonia: Wean O2 as tolerated Constipation: Scheduled and PRN bowel regimen Dispo: pending clinical course LAMIN OSULLIVAN PA-C Otolaryngology-Head and Neck Surgery [facility] Pager [phone] amin Osullivan PA-C - 01/17/2018 12:37 PM PDT DOS: 01/17/2018 Head and Neck Surgery Inpatient Daily Progress Note: Primary Care Provider: Daniel Cannon MD Admission Date: 01/16/2018 RONNI MAHMOOD, [id number] Hospital Day #1 SUBJECTIVE INTERVAL EVENTS: -No acute or respiratory issues overnight -Cuff down this am -Re-dress the neck dressing this am-Lytes wnl this am OBJECTIVE Last 24 hour min/max Temp: 37.4 C (99.3 F) Temp Min: 37 C (98.6 F) Max: 37.4 C (99.3 F) Pulse: 118 Pulse Min: 96 Max: 118 Resp: 18 Resp Min: 10 Max: 41 BP: (!) 149/97 BP Min: 122/89 Max: 156/99 SpO2: 96 % SpO2 Min: 95 % Max: 100 % Body mass index is 29.07 kg/m. Intake/Output Summary (Last 24 hours) at 01/17/18 1237 Last data filed at 01/17/18 0645 Gross per 24 hour Intake 3667.08 ml Output 2665 ml Net 1002.08 ml DERRICK right neck: 60 ml, SS DERRICK left neck: 50 ml, SS PHYSICAL EXAM: General: Alert, comfortable, NAD HEENT: Neck: compression dressing intact, trach intact with cuff down, soft, flat, no hematoma, no crepitus. Incision c/d/i Drains bilateral on bulb suction with SS drainage Respiratory: breathing non-labored on RA. Abdomen: soft, appropriate tenderness around the G-tue LABS: Recent Labs 01/16/18 0629 01/16/18 0632 01/16/18 1754 01/17/18 0506 NA 137 -- -- 137 K 3.6 -- -- 3.7 CL 104 -- -- 101 BICARB 25 -- -- 28 BUN 7 -- -- 7 CR 0.74 -- -- 0.75 GLU 98 98 172* 129* CA 8.9 -- -- 8.8 Recent Labs 01/17/18 0506 MG 2.0 Recent Labs 01/16/18 0629 01/17/18 0506 WBC 6.71 22.20* RBC 4.41* 4.51 HB 14.5 14.8 HCT 41.4 43.5 PLT 228 243 Recent Labs 01/16/18 0629 APTT 29.2 FIBRINOGEN 381 CBG's Recent Labs 01/16/18 0629 01/16/18 0632 01/16/18 1754 01/17/18 0506 GLU 98 98 172* 129* ASSESSMENT/PLAN: Ronni Mahmood is a 47 y.o. 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 Thromboembolism PPY: high risk for VTE - SCD's/OOB TID/Lovenox ppx Ulcer Prevention: Famotidine Glycemic Control: SSI if needed High risk, pneumonia: Wean O2 as tolerated Constipation: Scheduled and PRN bowel regimen Dispo: pending clinical course Code Status Updated to: FULL LAMIN OSULLIVAN PA-C Otolaryngology-Head and Neck Surgery [facility] Pager [phone] rRuth cavanaugh S LP - 01/17/2018 9:49 AM PDT INPATIENT ENT SPEECH PROGRESS NOTE: PCP: Daniel Cannon MD Medical Diagnosis: Glottic Cancer Treatment Diagnosis: Aphonia, Dysphagia Start of Care Date: 01/17/2018 SUBJECTIVE: Ronni Mahmood is a 47 [address] Moscoso who is familiar to our servic e from OP pre-operative evaluation and voice evaluation. The patient is now s/p 01/16/18 PROC EDURE: direct microlaryngoscopy, upper GI endoscopy with percutaneous endogastric tube claire cement, supracricoid partial laryngectomy sparing left arytenoid, cricohyoidoepiglottopexy, rightmodified radical neck dissection, tracheotomy tube placement. He is seen for standar d spit protocol. reported patient had a rough night due to panic attack and that Ativan was helpful in regard to this. Panic attacks are not typical for patient. RELEVANT MEDICAL HISTORY: Patient ingests 18+ beers a night and drinks 64+oz of caffeine a day, prior to admission. Patient Active Problem List Diagnosis Date Noted T3N0 SCCa, right glottis 01/05/2018 Dysphonia 01/05/2018 COMMUNICATION STATUS: Aphonic, on strict voice rest. Patient with trach in place, cuff inf lated. Patient is writing and texting for communication. He reports he is getting his needs met with this. Prior to admission the patient was verbal though with severe dysphonia and periods of aphonia. 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 DIETARY STATUS: PEG for all nutrition/hydration/medication. Prior to admission the patient was eating a regular diet with no restriction or complaints. OBJECTIVE: Spit Protocol - patient instructed in proper spit protocol, the need to clear tongue base s ecretions as well as oral secretions. Patient able to demonstrate this well and is independ ent. Patient Education and Counseling - Discussed with patient and the rational for the Spi t Protocol. Addressed need for voice rest and to avoid swallowing secretions at this time, precautions regarding this as well as healing and therapy timelines. Discussed need for com pression bandages around neck and their purpose. Talked about pulmonary health and need to get up and walk around as well as cough/clear pulmonary secretions as needed. Also addresse d should the patient feel panicky or anxious to let nursing know. Patient asked appropriat e questions as did his , all were answered to the best of my ability. ASSESSMENT: Managing Spit Protocol well. Not cleared for p.o. And is on strict voice rest a t this time. Communicating well via writing and non verbal means. PLAN: Will follow for Spit Protocol and communication needs. Ruth Marinelli, Ph.D., [facility]-CUT ORDER HAND Physical Anthropologist Director, [facility] Otolaryngology, Head and Neck Surgery [facility] Pager [phone] Pasquale Schwab MD - 01/17/2018 9:41 AM PDT PATIENT NAME: Ronni Mahmood [facility] MR#: [id number] : 1970 PRIMARY CARE PROVIDER: Daniel Cannon MD Patient Active Problem List Diagnosis T3N0 SCCa, right glottis Dysphonia SUBJECTIVE: Mr. Mahmood notes that he has some throat pain, but is otherwise feeling "OK." He has no signs and symptoms alcohol withdrawal at this time. OBJECTIVE: BP 149/97 | Pulse 118 | Temp 37.4 C (99.3 F) | RR 18 | Ht 1.88 m (6' 2") | Wt 102.7 kg (226 lb 6.6 oz) | SpO2 96% | BMI 29.07 kg/(m^2) Intake/Output Summary (Last 24 hours) at 01/17/18 0941 Last data filed at 01/17/18 0645 Gross per 24 hour Intake 4667.08 ml Output 3455 ml Net 1212.08 ml PERTINENT EXAM FINDINGS: Mr. Mahmood has normal tongue motion. His neck wrap is loose, but intact. The tracheotomy tube is intact and not occluded. There is no seroma noted. Drains i ntermittently hold suction. Drain(s) have appropriate serosanguinous output. The abdomen is non-distended and non-tender. There is no rebound tenderness. There is little or no guard ing. The gastrostomy tube is intact and the site is clean. There is no evidence of infecti on. ASSESSMENT: Mr. Mahmood requires hospitalization for recovery following supracricoid partial laryngectomy with cricohyoidoepiglottopexy, tracheotomy tube placement and percutaneous end ogastric tube. He has a significant history of alcohol abuse with as many as 24 cans of bee r daily. He does not appear to have withdrawal symptoms at this time and has not received s ignificant benzodiazepine per the CIWA protocol. PLAN: I have reviewed the plan for the day with the Head and Neck Team Members. Specific modifications include: will deflate cuff later today. Ambulate. Continued to watch for acu te alcohol withdrawal symptoms and treat as indicated with CIWA protocol. Follow drains. B egin tracheotomy tube teaching. Pasquale Moscoso M.D. Physical Anthropologist Laryngology and Head & Neck Surgery Electronically signed by Pasquale Moscoso MD at 12/2017 9:45 AM Steven Hopkins MD - 01/16/2018 9:35 PM PDT OTORHINOLARYNGOLOGY - HEAD & NECK SURGERY POST-OPERATIVE NOTE Attending Physician: Pasquale Moscoso MD 01/17/2018 PROCEDURE: direct microlaryngoscopy, upper GI endoscopy with percutaneous endogastric tube placement, supracricoid partial laryngectomy sparing left arytenoid, cricohyoidoepiglottope xy, right modified radical neck dissection, tracheotomy tube placement POST-OP NOTE Doing well, pain controlled, some anxiety BP 140/93 | Pulse 110 | Temp 37 C (98.6 F) | RR 18 | Ht 1.88 m (6' 2") | Wt 102.7 kg (2 26 lb 6.6 oz) | SpO2 96% | BMI 29.07 kg/(m^2) PHYSICAL EXAM: Gen: awake and alert, NAD HEENT: neck soft and flat, compression wrap in place, 8 DCT in good position Drains holding suction Resp: comfortable, unlabored ASSESSMENT & PLAN: Ronni Mahmood is a 47 y.o. male who is s/p the above, doing well - pain control - wound care Steven Ibarra MD (R2) Otolaryngology - Head and Neck Surgery [facility] Pager: [phone] documented in this en counter Plan of Treatment +--------+---------+ + + + | Date | Type | Specialty | Care Team | Description | +--------+---------+ + + + | 03/19/ | Office | Otolaryngology | Pasquale Moscoso | | | 2019 | Visit | | MD [place] [address] [facility] | | | | | | [address] [place] | | | | | | [place], [place] | | | | | | [id number] | | | | | | [phone] | | | | | | | | +--------+---------+ + + + documented as of this encounter Procedures + +--------+ + + + | Procedure Name | Priori | Date/Time | Associated Diagnosis | Comments | | | ty | | | | + +--------+ + + + | RECONSTRUCTION OF | Routin | 01/23/2018 | | Results for this | | LARYNX AFTER PARTIAL | e | 2:22 PM | | procedure are in the | | LARYNGECTOMY | | PDT | | results section. | + +--------+ + + + | LARYNGOSCOPY, | Routin | 01/23/2018 | | Results for this | | DIRECT, DIAGNOSTIC, | e | 2:22 PM | | procedure are in the | | OPERATING MICROSCOPE | | PDT | | results section. | + +--------+ + + + | PARTIAL | Routin | 01/23/2018 | | Results for this | | [id number] | e | 2:22 PM | | procedure are in the | | AL LARYNGECTOMY | | PDT | | results section. | + +--------+ + + + | MODIFIED RADICAL | Routin | 01/23/2018 | | Results for this | | NECK DISSECTION | e | 2:22 PM | | procedure are in the | | | | PDT | | results section. | + +--------+ + + + | TRACHEOTOMY | Routin | 01/23/2018 | | Results for this | | | e | 2:22 PM | | procedure are in the | | | | PDT | | results section. | + +--------+ + + + | PERCUTANEOUS | Routin | 01/23/2018 | | Results for this | | PLACEMENT OF | e | 2:22 PM | | procedure are in the | | GASTROSTOMY TUBE | | PDT | | results section. | + +--------+ + + + | CBC (HEMOGRAM) ONLY | Routin | 01/23/2018 | | Results for this | | | e | 4:43 AM | | procedure are in the | | | | PDT | | results section. | + +--------+ + + + | BASIC METABOLIC SET | Routin | 01/23/2018 | | Results for this | | (NA, K, CL, TCO2, | e | 4:43 AM | | procedure are in the | | BUN, CR, GLU, CA) | | PDT | | results section. | + +--------+ + + + | CBC ONLY | Routin | 01/23/2018 | | Results for this | | | e | 4:43 AM | | procedure are in the | | | | PDT | | results section. | + +--------+ + + + | PHOSPHORUS, PLASMA | Routin | 01/23/2018 | | Results for this | | | e | 4:43 AM | | procedure are in the | | | | PDT | | results section. | + +--------+ + + + | MAGNESIUM, PLASMA | Routin | 01/23/2018 | | Results for this | | | e | 4:43 AM | | procedure are in the | | | | PDT | | results section. | + +--------+ + + + | CBC (HEMOGRAM) ONLY | Routin | 01/22/2018 | | Results for this | | | e | 4:46 AM | | procedure are in the | | | | PDT | | results section. | + +--------+ + + + | BASIC METABOLIC SET | Routin | 01/22/2018 | | Results for this | | (NA, K, CL, TCO2, | e | 4:46 AM | | procedure are in the | | BUN, CR, GLU, CA) | | PDT | | results section. | + +--------+ + + + | CBC ONLY | Routin | 01/22/2018 | | Results for this | | | e | 4:46 AM | | procedure are in the | | | | PDT | | results section. | + +--------+ + + + | PHOSPHORUS, PLASMA | Routin | 01/22/2018 | | Results for this | | | e | 4:46 AM | | procedure are in the | | | | PDT | | results section. | + +--------+ + + + | MAGNESIUM, PLASMA | Routin | 01/22/2018 | | Results for this | | | e | 4:46 AM | | procedure are in the | | | | PDT | | results section. | + +--------+ + + + | CBC (HEMOGRAM) ONLY | Routin | 01/21/2018 | | Results for this | | | e | 5:26 AM | | procedure are in the | | | | PDT | | results section. | + +--------+ + + + | BASIC METABOLIC SET | Routin | 01/21/2018 | | Results for this | | (NA, K, CL, TCO2, | e | 5:26 AM | | procedure are in the | | BUN, CR, GLU, CA) | | PDT | | results section. | + +--------+ + + + | CBC ONLY | Routin | 01/21/2018 | | Results for this | | | e | 5:26 AM | | procedure are in the | | | | PDT | | results section. | + +--------+ + + + | PHOSPHORUS, PLASMA | Routin | 01/21/2018 | | Results for this | | | e | 5:26 AM | | procedure are in the | | | | PDT | | results section. | + +--------+ + + + | MAGNESIUM, PLASMA | Routin | 01/21/2018 | | Results for this | | | e | 5:26 AM | | procedure are in the | | | | PDT | | results section. | + +--------+ + + + | CBC (HEMOGRAM) ONLY | Routin | 01/20/2018 | | Results for this | | | e | 5:14 AM | | procedure are in the | | | | PDT | | results section. | + +--------+ + + + | BASIC METABOLIC SET | Routin | 01/20/2018 | | Results for this | | (NA, K, CL, TCO2, | e | 5:14 AM | | procedure are in the | | BUN, CR, GLU, CA) | | PDT | | results section. | + +--------+ + + + | CBC ONLY | Routin | 01/20/2018 | | Results for this | | | e | 5:14 AM | | procedure are in the | | | | PDT | | results section. | + +--------+ + + + | PHOSPHORUS, PLASMA | Routin | 01/20/2018 | | Results for this | | | e | 5:14 AM | | procedure are in the | | | | PDT | | results section. | + +--------+ + + + | MAGNESIUM, PLASMA | Routin | 01/20/2018 | | Results for this | | | e | 5:14 AM | | procedure are in the | | | | PDT | | results section. | + +--------+ + + + | CBC (HEMOGRAM) ONLY | Routin | 01/19/2018 | | Results for this | | | e | 5:10 AM | | procedure are in the | | | | PDT | | results section. | + +--------+ + + + | BASIC METABOLIC SET | Routin | 01/19/2018 | | Results for this | | (NA, K, CL, TCO2, | e | 5:10 AM | | procedure are in the | | BUN, CR, GLU, CA) | | PDT | | results section. | + +--------+ + + + | CBC ONLY | Routin | 01/19/2018 | | Results for this | | | e | 5:10 AM | | procedure are in the | | | | PDT | | results section. | + +--------+ + + + | PHOSPHORUS, PLASMA | Routin | 01/19/2018 | | Results for this | | | e | 5:10 AM | | procedure are in the | | | | PDT | | results section. | + +--------+ + + + | MAGNESIUM, PLASMA | Routin | 01/19/2018 | | Results for this | | | e | 5:10 AM | | procedure are in the | | | | PDT | | results section. | + +--------+ + + + | CBC (HEMOGRAM) ONLY | Routin | 01/18/2018 | | Results for this | | | e | 5:06 AM | | procedure are in the | | | | PDT | | results section. | + +--------+ + + + | BASIC METABOLIC SET | Routin | 01/18/2018 | | Results for this | | (NA, K, CL, TCO2, | e | 5:06 AM | | procedure are in the | | BUN, CR, GLU, CA) | | PDT | | results section. | + +--------+ + + + | CBC ONLY | Routin | 01/18/2018 | | Results for this | | | e | 5:06 AM | | procedure are in the | | | | PDT | | results section. | + +--------+ + + + | PHOSPHORUS, PLASMA | Routin | 01/18/2018 | | Results for this | | | e | 5:06 AM | | procedure are in the | | | | PDT | | results section. | + +--------+ + + + | MAGNESIUM, PLASMA | Routin | 01/18/2018 | | Results for this | | | e | 5:06 AM | | procedure are in the | | | | PDT | | results section. | + +--------+ + + + | CBC (HEMOGRAM) ONLY | Urgent | 01/17/2018 | | Results for this | | | | 5:06 AM | | procedure are in the | | | | PDT | | results section. | + +--------+ + + + | BASIC METABOLIC SET | Urgent | 01/17/2018 | | Results for this | | (NA, K, CL, TCO2, | | 5:06 AM | | procedure are in the | | BUN, CR, GLU, CA) | | PDT | | results section. | + +--------+ + + + | CBC ONLY | Urgent | 01/17/2018 | | Results for this | | | | 5:06 AM | | procedure are in the | | | | PDT | | results section. | + +--------+ + + + | PHOSPHORUS, PLASMA | Urgent | 01/17/2018 | | Results for this | | | | 5:06 AM | | procedure are in the | | | | PDT | | results section. | + +--------+ + + + | MAGNESIUM, PLASMA | Urgent | 01/17/2018 | | Results for this | | | | 5:06 AM | | procedure are in the | | | | PDT | | results section. | + +--------+ + + + | RECONSTRUCTION OF | Routin | 01/16/2018 | | Results for this | | LARYNX AFTER PARTIAL | e | 10:42 PM | | procedure are in the | | LARYNGECTOMY | | PDT | | results section. | + +--------+ + + + | LARYNGOSCOPY, | Routin | 01/16/2018 | | Results for this | | DIRECT, DIAGNOSTIC, | e | 10:42 PM | | procedure are in the | | OPERATING TELESCOPE | | PDT | | results section. | + +--------+ + + + | PARTIAL | Routin | 01/16/2018 | | Results for this | | [id number] | e | 10:42 PM | | procedure are in the | | AL LARYNGECTOMY | | PDT | | results section. | + +--------+ + + + | MODIFIED RADICAL | Routin | 01/16/2018 | | Results for this | | NECK DISSECTION | e | 10:42 PM | | procedure are in the | | | | PDT | | results section. | + +--------+ + + + | TRACHEOTOMY | Routin | 01/16/2018 | | Results for this | | | e | 10:42 PM | | procedure are in the | | | | PDT | | results section. | + +--------+ + + + | PERCUTANEOUS | Routin | 01/16/2018 | | Results for this | | PLACEMENT OF | e | 10:42 PM | | procedure are in the | | GASTROSTOMY TUBE | | PDT | | results section. | + +--------+ + + + | X-RAY PORTABLE CHEST | Urgent | 01/16/2018 | | Results for this | | 1 VIEW | | 6:51 PM | | procedure are in the | | | | PDT | | results section. | + +--------+ + + + | CAPILLARY BLOOD | Routin | 01/16/2018 | T3N0 SCCa, right | Results for this | | GLUCOSE (NO CHG), | e | 5:54 PM | glottis | procedure are in the | | POC | | PDT | | results section. | + +--------+ + + + | SURGICAL PATHOLOGY | Routin | 01/16/2018 | | Results for this | | | e | 2:41 PM | | procedure are in the | | | | PDT | | results section. | + +--------+ + + + | PERCUTANEOUS | Electi | 01/16/2018 | Malignant neoplasm | | | ENDOSCOPIC | ve | 8:30 AM | of glottis (HCC) | | | GASTROSTOMY | Surgic | PDT | Dysphonia | | | | al | | | | + +--------+ + + + | NECK DISSECTION | Electi | 01/16/2018 | Malignant neoplasm | | | | ve | 8:30 AM | of glottis (HCC) | | | | Surgic | PDT | Dysphonia | | | | al | | | | + +--------+ + + + | DIRECT | Electi | 01/16/2018 | Malignant neoplasm | | | MICROLARYNGOSCOPY | ve | 8:30 AM | of glottis (HCC) | | | | Surgic | PDT | Dysphonia | | | | al | | | | + +--------+ + + + | CONFIRMATORY ABO/RH | Urgent | 01/16/2018 | | Results for this | | | | 8:05 AM | | procedure are in the | | | | PDT | | results section. | + +--------+ + + + | 12 LEAD ECG | Routin | 01/16/2018 | | Results for this | | | e | 6:33 AM | | procedure are in the | | | | PDT | | results section. | + +--------+ + + + | CAPILLARY BLOOD | Routin | 01/16/2018 | T3N0 SCCa, right | Results for this | | GLUCOSE (NO CHG), | e | 6:32 AM | glottis | procedure are in the | | POC | | PDT | | results section. | + +--------+ + + + | CBC (HEMOGRAM) ONLY | Routin | 01/16/2018 | | Results for this | | | e | 6:29 AM | | procedure are in the | | | | PDT | | results section. | + +--------+ + + + | BASIC METABOLIC SET | Routin | 01/16/2018 | | Results for this | | (NA, K, CL, TCO2, | e | 6:29 AM | | procedure are in the | | BUN, CR, GLU, CA) | | PDT | | results section. | + +--------+ + + + | CBC ONLY | Routin | 01/16/2018 | | Results for this | | | e | 6:29 AM | | procedure are in the | | | | PDT | | results section. | + +--------+ + + + | COAGULOPATHY PANEL | Routin | 01/16/2018 | | Results for this | | (INR,APTT,FIBRINOGEN | e | 6:29 AM | | procedure are in the | | ) | | PDT | | results section. | + +--------+ + + + | ANTIBODY SCREEN | Routin | 01/16/2018 | | Results for this | | | e | 6:29 AM | | procedure are in the | | | | PDT | | results section. | + +--------+ + + + | TYPE AND SCREEN | Routin | 01/16/2018 | | Results for this | | | e | 6:29 AM | | procedure are in the | | | | PDT | | results section. | + +--------+ + + + | ABO & RH TYPE | Routin | 01/16/2018 | | Results for this | | | e | 6:29 AM | | procedure are in the | | | | PDT | | results section. | + +--------+ + + + | INTRAPROCEDURE | Routin | 01/16/2018 | | Results for this | | IMAGING | e | 6:01 AM | | procedure are in the | | | | PDT | | results section. | + +--------+ + + + | CARDIOLOGY | | 01/16/2018 | | Results for this | | | | 12:00 AM | | procedure are in the | | | | PDT | | results section. 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 Mahmood | | | is a 47 y.o. male with a history of dysphonia, tobacco and alcohol | | | abuse. Mr. Mahmood was found to have a right vocal fold squamous cell | | | carcinoma confirmed with biopsy and re-confirmed at [facility]. Options | | | including organ preservation surgery, total laryngectomy and | | | chemoradiation therapy. He decided to pursue organ preservation | | | surgery. We discussed the procedure with Mr. Mahmood at length prior | | | to the procedure, including the risks and benefits of the procedure | | | ans well as the risk of converting to total laryngectomy. We also | | | discussed alternative including non-surgical management. After | | | answering all questions to the best of my ability, I obtained | | | informed consent from Mr. Mahmood prior to proceeding. ANESTHESIA: | | | general endotracheal tube anesthesia ESTIMATED BLOOD LOSS: | | | Less than 200 cc IV FLUID: Crystalloid ANTIBIOTICS: | | | Unasyn SPECIMENS: 1) right modified radical neck | | | dissection, levels 2a-4 2) larynx 3) right interarytenoid margin 4) | | | right subglottic margin 5) right false vocal fold margin 6) right | | | epiglottis margin 7) right paraglottic space (deep) margin | | | DRAINS/PROSTHETICS/INJECTABLES: 2 x 10 Slade-Blas type drain(s) | | | COMPLICATIONS: none FINDINGS: Deeply invasive lesion of | | | the right true vocal cord filling the right paraglottic space. It | | | did not seem to extend to the supraglottis and there was minimal | | | subglottic involvement. On frozen section, all margins were | | | negative. No lymph nodes appeared to be worrisome. Procedure: | | | Mr. Mahmood was brought to the operating room and placed in supine | | | position. Following induction of general anesthesia and endotracheal | | | intubation, Mr. Mahmood was turned 180 degrees. We performed direct | | | microlaryngoscopy using the Mansi laryngoscope and operating | | | telescopes after the teeth were protected.The findings are noted | | | above and Mr. Mahmood was deemed to be a candidate for supracricoid | | | partial laryngectomy with cricohyoidoepiglottopexy reconstruction. | | | At this point, the laryngoscope was removed and Mr. Mahmood was | | | positioned for gastrostomy tube placement. The Olympus gastroscope | | | was passed in the patient's oral cavity, oropharynx, and into the | | | patient's stomach. The stomach was carefully inflated and | | | visualized. The pylorus was noted to be free of lesions and masses | | | and there were no lesions or masses noted throughout the stomach. | | | The anterior wall was palpated with the stomach inflated. A suitable | | | position to approximate the mid clavicular line, approximately 2 | | | fingerbreadths beneath the costal margin was identified. The skin | | | was prepped and draped in sterile fashion. Incision was made with a | | | #11 blade. The needle was placed percutaneously into stomach under | | | direct guidance. A guidewire was passed and this was grasped with a | | | snare through the gastroscope. This was brought out the mouth. The | | | gastrostomy tube was then glided onto the wire and brought | | | transorally through the esophagus and into the position of the | | | stomach. The gastroscope was replaced. The tube was affixed at | | | approximately 3 cm. It had excellent rotation and did not appear to | | | buckle the skin. The stomach was suctioned free of blood and | | | secretions and the tube was connected to a Jones bag to straight | | | drain. At this point, the patient was carefully positioned for | | | resection. He was positioned on a shoulder roll with the neck gently | | | extended. The neck was carefully palpated and the thyroid notch, | | | cricoid, hyoid bone, and sternal notch were identified. An incision | | | was marked out in an U-shaped apron flap to place a tracheotomy site | | | within the line of the incision approximately 1 fingerbreadth | | | beneath his cricoid cartilage. Once completed, the neck was injected | | | with 1% lidocaine with 1:100,000 epinephrine. A total of 10 cc was | | | used. The neck was then prepped and draped in sterile fashion. | | | An apron skin incision was then made using a #15 blade and | | | subplatysmal flaps were elevated 2 cm above the hyoid bone | | | superiorly and to the sternal notch inferiorly. We first started by | | | performing right modified radical neck dissection. Subplatysmal | | | flaps were raised. The sternocleidomastoid muscle was identified | | | and dissection was undertaken along its medial edge to the mastoid | | | process and inferiorly to the clavicular head. The submandibular | | | gland and the posterior belly of the digastric were identified and | | | dissected posteriorly and anteriorly. This was done below the | | | submandibular gland to protect the marginal mandibular branch of the | | | facial nerve. The posterior facial vein was identified and ligated | | | with 3-0 silk suture. This was ligated superiorly to help protect | | | the marginal mandibular branch of the facial nerve. Dissection was | | | then undertaken along the medial aspect of the sternocleidomastoid | | | muscle. The 11th cranial nerve was identified. This was traced | | | superiorly to the level of the posterior belly of the digastric | | | muscle. The jugular vein was identified at this level as well. We | | | then transitioned just medial to the jugular vein and were able to | | | identify the hypoglossal nerve. . Along the border of the SCM, the | | | omohyoid muscle was divided using electrocautery. Dissection was | | | carried out inferiorly to the level of the clavicular head. The | | | jugular vein was identified in this region as well. At this point, | | | the specimen was elevated using Marrufo clamps and dissection was | | | undertaken posteriorly toward the cervical rootlets. The cervical | | | rootlets were identified and used to tract anteriorly. The cervical | | | rootlets were not divided and level V was not entered. Dissection | | | was carried out to the level of the spinal accessory nerve. Once | | | completed, we continued our dissection up on to the internal jugular | | | vein. Dissection was carried out anteriorly across the internal | | | jugular vein. The specimen was dissected free of the common facial | | | vein which was preserved. The specimen was then transected at the | | | level of the strap muscles and sent to pathology for permanent | | | sectioning. At this point, we turned our attention to performing | | | the partial laryngectomy. We began by incising the midline | | | vertically from the level of the hyoid to the level of sternal | | | notch. The strap muscles were in the midline and reflected | | | laterally. The thyroid isthmus was identified. Dissection was | | | undertaken along the trachea and gentle finger dissection was taken | | | retrosternally to the level of the raymundo. The innominate artery | | | was identified and carefully avoided. The strap muscles were divided | | | at their attachment to the thyroid cartilage. The superior lobes of | | | the thyroid were reflected laterally. The superior laryngeal nerves | | | on either side were identified and preserved. With our exposure | | | adequate from the muscle standpoint, we then performed division of | | | the inferior constrictor muscles bilaterally. This was done along | | | the posterior border of the thyroid cartilage and up onto the | | | superior cornu of the thyroid cartilage and inferior cornu of the | | | thyroid cartilage. The bilateral piriform sinuses were freed | | | bilaterally. Only one-third of the thyroid ala was elevated on the | | | tumor-bearing side. Once completed, we turned our attention to the | | | inferior thyroid cornu. This was done on the right side first. The | | | inferior thyroid cornu was carefully dissected free of constrictor | | | muscle and we released the cricothyroid joint. We did this in a | | | posterior to anterior directionto avoid injury to the recurrent | | | laryngeal nerve beneath this. Once performed on the right, we | | | performed this on the left as well. Once completed, we had the | | | entire thyroid cartilage isolated and we turned to cricothyrotomy. | | | This was performed in the midline and a 6.5 armored tube was placed | | | into the patient's airway. Once completed, we turned our | | | attention back to the thyroid cartilage and set out about resecting | | | the specimen. Just prior to this, we did put in four 3-0 vicryl | | | sutures into the inferior constrictor muscle and mucosa of the | | | piriform sinuses on both sides. These were tagged and left for | | | closure at the conclusion of the procedure. The thyrohyoid muscle | | | was carefully elevated off the superior border of the thyroid | | | cartilage.The petiole of the epiglottis was incised and the larynx | | | was entered just above the false vocal folds in the midline. We | | | turned our attention to resection along the right side first. | | | Division of the false vocal fold and true vocal fold was performed | | | just anterior to the vocal process. Careful attention was paid to | | | avoid entry into the cricothyroid joint to avoid ankylosis. We | | | centered our dissection inferiorly to the cricothyrotomy. At this | | | point, the thyroid ala was opened and fractured in the midline to | | | allow complete visualization of the tumor. With the tumor exposed, | | | we were able to make careful mucosal cuts, proximally 4 to 5 mm away | | | from the tumor using a #15 blade. At the conclusion of the | | | resection, we carefully looked at the specimen and there did not | | | appear to be any tumor violation. Once completed, frozen section | | | specimens were sent which returned negative. We therefore elected | | | to proceed with reconstruction and partial laryngectomy with the | | | specimen completely removed. Reconstruction was undertaken by | | | passing of 4-0 Vicryl suture in the anterior portion of the | | | arytenoid which was carefully preserved just above the vocal | | | process. This was passed into the cricoid cartilage mucosa of the | | | conus elasticus to raise the cartilage anteriorly. The posterior | | | arytenoid mucosa was then folded over the top of the exposed cricoid | | | and arytenoid(s). This was done using 4-0 Vicryl suture. A #1 | | | Vicryl suture was passed around the cricoid, into the petiole of the | | | epiglottis, back out and around the hyoid bone in the midline. | | | Two additional #1 Vicryl sutures were passed in similar fashion 1 | | | cm apart on either side. The anterior portion of the 5th tracheal | | | ring was resected and the #8 DCT Shiley tracheotomy was placed. At | | | this point, the impaction was undertaken and the #1 Vicryl sutures | | | were sewn in place. The piriform mucosa retaining sutures within | | | the inferior constrictor muscles were then tied over across the | | | midline. Two #10 drains were placed laterally through stab | | | incisions. One was placed inferiorly into the anterior mediastinum. | | | The other was placed into the right neck dissection and superiorly | | | towards the mastoid tip. These were placed to bulb suction. The | | | wound was irrigated with several hundred cc of bactericidal saline | | | solution. The wound was then closed by reapproximating the muscles | | | and fascia in the midline using 3-0 Vicryl sutures in an interrupted | | | fashion. The platysma flaps were then replaced and a number of | | | quilting stitches were placed circumferentially around the | | | tracheotomy to attempt to exclude this. The thyroid isthmus had been | | | reapproximated in the midline as well with 3-0 Vicryl suture just | | | prior to this. The platysmal layers were then closed in an | | | interrupted fashion with 4-0 Vicryl suture. The skin was then closed | | | with 5-0 running fast gut suture in a running fashion. A Kerlix | | | wrap was placed circumferentially around the neck. Herman Simeon | | | Ervin NORRIS acted as Dr. Moscoso's assistant speech language pathologist during the case as no | | | qualified resident was involved for any of the procedure. | | | DISPOSITION: Mr. Mahmood was returned to Anesthesia for awakening and | | | transferred to the PACU. He tolerated the procedure extremely | | | well. Herman Mueller M.D. 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 Mahmood | | | is a 47 y.o. male with a history of dysphonia, tobacco and alcohol | | | abuse. Mr. Mahmood was found to have a right vocal fold squamous cell | | | carcinoma confirmed with biopsy and re-confirmed at [facility]. Options | | | including organ preservation surgery, total laryngectomy and | | | chemoradiation therapy. He decided to pursue organ preservation | | | surgery. We discussed the procedure with Mr. Mahmood at length prior | | | to the procedure, including the risks and benefits of the procedure | | | ans well as the risk of converting to total laryngectomy. We also | | | discussed alternative including non-surgical management. After | | | answering all questions to the best of my ability, I obtained | | | informed consent from Mr. Mahmood prior to proceeding. ANESTHESIA: | | | general endotracheal tube anesthesia ESTIMATED BLOOD LOSS: | | | Less than 200 cc IV FLUID: Crystalloid ANTIBIOTICS: | | | Unasyn SPECIMENS: 1) right modified radical neck | | | dissection, levels 2a-4 2) larynx 3) right interarytenoid margin 4) | | | right subglottic margin 5) right false vocal fold margin 6) right | | | epiglottis margin 7) right paraglottic space (deep) margin | | | DRAINS/PROSTHETICS/INJECTABLES: 2 x 10 Slade-Blas type drain(s) | | | COMPLICATIONS: none FINDINGS: Deeply invasive lesion of | | | the right true vocal cord filling the right paraglottic space. It | | | did not seem to extend to the supraglottis and there was minimal | | | subglottic involvement. On frozen section, all margins were | | | negative. No lymph nodes appeared to be worrisome. Procedure: | | | Mr. Mahmood was brought to the operating room and placed in supine | | | position. Following induction of general anesthesia and endotracheal | | | intubation, Mr. Mahmood was turned 180 degrees. We performed direct | | | microlaryngoscopy using the Mansi laryngoscope and operating | | | telescopes after the teeth were protected.The findings are noted | | | above and Mr. Mahmood was deemed to be a candidate for supracricoid | | | partial laryngectomy with cricohyoidoepiglottopexy reconstruction. | | | At this point, the laryngoscope was removed and Mr. Mahmood was | | | positioned for gastrostomy tube placement. The Olympus gastroscope | | | was passed in the patient's oral cavity, oropharynx, and into the | | | patient's stomach. The stomach was carefully inflated and | | | visualized. The pylorus was noted to be free of lesions and masses | | | and there were no lesions or masses noted throughout the stomach. | | | The anterior wall was palpated with the stomach inflated. A suitable | | | position to approximate the mid clavicular line, approximately 2 | | | fingerbreadths beneath the costal margin was identified. The skin | | | was prepped and draped in sterile fashion. Incision was made with a | | | #11 blade. The needle was placed percutaneously into stomach under | | | direct guidance. A guidewire was passed and this was grasped with a | | | snare through the gastroscope. This was brought out the mouth. The | | | gastrostomy tube was then glided onto the wire and brought | | | transorally through the esophagus and into the position of the | | | stomach. The gastroscope was replaced. The tube was affixed at | | | approximately 3 cm. It had excellent rotation and did not appear to | | | buckle the skin. The stomach was suctioned free of blood and | | | secretions and the tube was connected to a Jones bag to straight | | | drain. At this point, the patient was carefully positioned for | | | resection. He was positioned on a shoulder roll with the neck gently | | | extended. The neck was carefully palpated and the thyroid notch, | | | cricoid, hyoid bone, and sternal notch were identified. An incision | | | was marked out in an U-shaped apron flap to place a tracheotomy site | | | within the line of the incision approximately 1 fingerbreadth | | | beneath his cricoid cartilage. Once completed, the neck was injected | | | with 1% lidocaine with 1:100,000 epinephrine. A total of 10 cc was | | | used. The neck was then prepped and draped in sterile fashion. | | | An apron skin incision was then made using a #15 blade and | | | subplatysmal flaps were elevated 2 cm above the hyoid bone | | | superiorly and to the sternal notch inferiorly. We first started by | | | performing right modified radical neck dissection. Subplatysmal | | | flaps were raised. The sternocleidomastoid muscle was identified | | | and dissection was undertaken along its medial edge to the mastoid | | | process and inferiorly to the clavicular head. The submandibular | | | gland and the posterior belly of the digastric were identified and | | | dissected posteriorly and anteriorly. This was done below the | | | submandibular gland to protect the marginal mandibular branch of the | | | facial nerve. The posterior facial vein was identified and ligated | | | with 3-0 silk suture. This was ligated superiorly to help protect | | | the marginal mandibular branch of the facial nerve. Dissection was | | | then undertaken along the medial aspect of the sternocleidomastoid | | | muscle. The 11th cranial nerve was identified. This was traced | | | superiorly to the level of the posterior belly of the digastric | | | muscle. The jugular vein was identified at this level as well. We | | | then transitioned just medial to the jugular vein and were able to | | | identify the hypoglossal nerve. . Along the border of the SCM, the | | | omohyoid muscle was divided using electrocautery. Dissection was | | | carried out inferiorly to the level of the clavicular head. The | | | jugular vein was identified in this region as well. At this point, | | | the specimen was elevated using Marrufo clamps and dissection was | | | undertaken posteriorly toward the cervical rootlets. The cervical | | | rootlets were identified and used to tract anteriorly. The cervical | | | rootlets were not divided and level V was not entered. Dissection | | | was carried out to the level of the spinal accessory nerve. Once | | | completed, we continued our dissection up on to the internal jugular | | | vein. Dissection was carried out anteriorly across the internal | | | jugular vein. The specimen was dissected free of the common facial | | | vein which was preserved. The specimen was then transected at the | | | level of the strap muscles and sent to pathology for permanent | | | sectioning. At this point, we turned our attention to performing | | | the partial laryngectomy. We began by incising the midline | | | vertically from the level of the hyoid to the level of sternal | | | notch. The strap muscles were in the midline and reflected | | | laterally. The thyroid isthmus was identified. Dissection was | | | undertaken along the trachea and gentle finger dissection was taken | | | retrosternally to the level of the raymundo. The innominate artery | | | was identified and carefully avoided. The strap muscles were divided | | | at their attachment to the thyroid cartilage. The superior lobes of | | | the thyroid were reflected laterally. The superior laryngeal nerves | | | on either side were identified and preserved. With our exposure | | | adequate from the muscle standpoint, we then performed division of | | | the inferior constrictor muscles bilaterally. This was done along | | | the posterior border of the thyroid cartilage and up onto the | | | superior cornu of the thyroid cartilage and inferior cornu of the | | | thyroid cartilage. The bilateral piriform sinuses were freed | | | bilaterally. Only one-third of the thyroid ala was elevated on the | | | tumor-bearing side. Once completed, we turned our attention to the | | | inferior thyroid cornu. This was done on the right side first. The | | | inferior thyroid cornu was carefully dissected free of constrictor | | | muscle and we released the cricothyroid joint. We did this in a | | | posterior to anterior directionto avoid injury to the recurrent | | | laryngeal nerve beneath this. Once performed on the right, we | | | performed this on the left as well. Once completed, we had the | | | entire thyroid cartilage isolated and we turned to cricothyrotomy. | | | This was performed in the midline and a 6.5 armored tube was placed | | | into the patient's airway. Once completed, we turned our | | | attention back to the thyroid cartilage and set out about resecting | | | the specimen. Just prior to this, we did put in four 3-0 vicryl | | | sutures into the inferior constrictor muscle and mucosa of the | | | piriform sinuses on both sides. These were tagged and left for | | | closure at the conclusion of the procedure. The thyrohyoid muscle | | | was carefully elevated off the superior border of the thyroid | | | cartilage.The petiole of the epiglottis was incised and the larynx | | | was entered just above the false vocal folds in the midline. We | | | turned our attention to resection along the right side first. | | | Division of the false vocal fold and true vocal fold was performed | | | just anterior to the vocal process. Careful attention was paid to | | | avoid entry into the cricothyroid joint to avoid ankylosis. We | | | centered our dissection inferiorly to the cricothyrotomy. At this | | | point, the thyroid ala was opened and fractured in the midline to | | | allow complete visualization of the tumor. With the tumor exposed, | | | we were able to make careful mucosal cuts, proximally 4 to 5 mm away | | | from the tumor using a #15 blade. At the conclusion of the | | | resection, we carefully looked at the specimen and there did not | | | appear to be any tumor violation. Once completed, frozen section | | | specimens were sent which returned negative. We therefore elected | | | to proceed with reconstruction and partial laryngectomy with the | | | specimen completely removed. Reconstruction was undertaken by | | | passing of 4-0 Vicryl suture in the anterior portion of the | | | arytenoid which was carefully preserved just above the vocal | | | process. This was passed into the cricoid cartilage mucosa of the | | | conus elasticus to raise the cartilage anteriorly. The posterior | | | arytenoid mucosa was then folded over the top of the exposed cricoid | | | and arytenoid(s). This was done using 4-0 Vicryl suture. A #1 | | | Vicryl suture was passed around the cricoid, into the petiole of the | | | epiglottis, back out and around the hyoid bone in the midline. | | | Two additional #1 Vicryl sutures were passed in similar fashion 1 | | | cm apart on either side. The anterior portion of the 5th tracheal | | | ring was resected and the #8 DCT Shiley tracheotomy was placed. At | | | this point, the impaction was undertaken and the #1 Vicryl sutures | | | were sewn in place. The piriform mucosa retaining sutures within | | | the inferior constrictor muscles were then tied over across the | | | midline. Two #10 drains were placed laterally through stab | | | incisions. One was placed inferiorly into the anterior mediastinum. | | | The other was placed into the right neck dissection and superiorly | | | towards the mastoid tip. These were placed to bulb suction. The | | | wound was irrigated with several hundred cc of bactericidal saline | | | solution. The wound was then closed by reapproximating the muscles | | | and fascia in the midline using 3-0 Vicryl sutures in an interrupted | | | fashion. The platysma flaps were then replaced and a number of | | | quilting stitches were placed circumferentially around the | | | tracheotomy to attempt to exclude this. The thyroid isthmus had been | | | reapproximated in the midline as well with 3-0 Vicryl suture just | | | prior to this. The platysmal layers were then closed in an | | | interrupted fashion with 4-0 Vicryl suture. The skin was then closed | | | with 5-0 running fast gut suture in a running fashion. A Kerlix | | | wrap was placed circumferentially around the neck. IHerman | | | Ervin NORRIS acted as Dr. Moscoso's assistant speech language pathologist during the case as no | | | qualified resident was involved for any of the procedure. | | | DISPOSITION: Mr. Mahmood was returned to Anesthesia for awakening and | | | transferred to the PACU. He tolerated the procedure extremely | | | well. Herman Mueller M.D. 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 Mahmood | | | is a 47 y.o. male with a history of dysphonia, tobacco and alcohol | | | abuse. Mr. Mahmood was found to have a right vocal fold squamous cell | | | carcinoma confirmed with biopsy and re-confirmed at [facility]. Options | | | including organ preservation surgery, total laryngectomy and | | | chemoradiation therapy. He decided to pursue organ preservation | | | surgery. We discussed the procedure with Mr. Mahmood at length prior | | | to the procedure, including the risks and benefits of the procedure | | | ans well as the risk of converting to total laryngectomy. We also | | | discussed alternative including non-surgical management. After | | | answering all questions to the best of my ability, I obtained | | | informed consent from Mr. Mahmood prior to proceeding. ANESTHESIA: | | | general endotracheal tube anesthesia ESTIMATED BLOOD LOSS: | | | Less than 200 cc IV FLUID: Crystalloid ANTIBIOTICS: | | | Unasyn SPECIMENS: 1) right modified radical neck | | | dissection, levels 2a-4 2) larynx 3) right interarytenoid margin 4) | | | right subglottic margin 5) right false vocal fold margin 6) right | | | epiglottis margin 7) right paraglottic space (deep) margin | | | DRAINS/PROSTHETICS/INJECTABLES: 2 x 10 Slade-Blas type drain(s) | | | COMPLICATIONS: none FINDINGS: Deeply invasive lesion of | | | the right true vocal cord filling the right paraglottic space. It | | | did not seem to extend to the supraglottis and there was minimal | | | subglottic involvement. On frozen section, all margins were | | | negative. No lymph nodes appeared to be worrisome. Procedure: | | | Mr. Mahmood was brought to the operating room and placed in supine | | | position. Following induction of general anesthesia and endotracheal | | | intubation, Mr. Mahmood was turned 180 degrees. We performed direct | | | microlaryngoscopy using the Mansi laryngoscope and operating | | | telescopes after the teeth were protected.The findings are noted | | | above and Mr. Mahmood was deemed to be a candidate for supracricoid | | | partial laryngectomy with cricohyoidoepiglottopexy reconstruction. | | | At this point, the laryngoscope was removed and Mr. Mahmood was | | | positioned for gastrostomy tube placement. The Olympus gastroscope | | | was passed in the patient's oral cavity, oropharynx, and into the | | | patient's stomach. The stomach was carefully inflated and | | | visualized. The pylorus was noted to be free of lesions and masses | | | and there were no lesions or masses noted throughout the stomach. | | | The anterior wall was palpated with the stomach inflated. A suitable | | | position to approximate the mid clavicular line, approximately 2 | | | fingerbreadths beneath the costal margin was identified. The skin | | | was prepped and draped in sterile fashion. Incision was made with a | | | #11 blade. The needle was placed percutaneously into stomach under | | | direct guidance. A guidewire was passed and this was grasped with a | | | snare through the gastroscope. This was brought out the mouth. The | | | gastrostomy tube was then glided onto the wire and brought | | | transorally through the esophagus and into the position of the | | | stomach. The gastroscope was replaced. The tube was affixed at | | | approximately 3 cm. It had excellent rotation and did not appear to | | | buckle the skin. The stomach was suctioned free of blood and | | | secretions and the tube was connected to a Jones bag to straight | | | drain. At this point, the patient was carefully positioned for | | | resection. He was positioned on a shoulder roll with the neck gently | | | extended. The neck was carefully palpated and the thyroid notch, | | | cricoid, hyoid bone, and sternal notch were identified. An incision | | | was marked out in an U-shaped apron flap to place a tracheotomy site | | | within the line of the incision approximately 1 fingerbreadth | | | beneath his cricoid cartilage. Once completed, the neck was injected | | | with 1% lidocaine with 1:100,000 epinephrine. A total of 10 cc was | | | used. The neck was then prepped and draped in sterile fashion. | | | An apron skin incision was then made using a #15 blade and | | | subplatysmal flaps were elevated 2 cm above the hyoid bone | | | superiorly and to the sternal notch inferiorly. We first started by | | | performing right modified radical neck dissection. Subplatysmal | | | flaps were raised. The sternocleidomastoid muscle was identified | | | and dissection was undertaken along its medial edge to the mastoid | | | process and inferiorly to the clavicular head. The submandibular | | | gland and the posterior belly of the digastric were identified and | | | dissected posteriorly and anteriorly. This was done below the | | | submandibular gland to protect the marginal mandibular branch of the | | | facial nerve. The posterior facial vein was identified and ligated | | | with 3-0 silk suture. This was ligated superiorly to help protect | | | the marginal mandibular branch of the facial nerve. Dissection was | | | then undertaken along the medial aspect of the sternocleidomastoid | | | muscle. The 11th cranial nerve was identified. This was traced | | | superiorly to the level of the posterior belly of the digastric | | | muscle. The jugular vein was identified at this level as well. We | | | then transitioned just medial to the jugular vein and were able to | | | identify the hypoglossal nerve. . Along the border of the SCM, the | | | omohyoid muscle was divided using electrocautery. Dissection was | | | carried out inferiorly to the level of the clavicular head. The | | | jugular vein was identified in this region as well. At this point, | | | the specimen was elevated using Marrufo clamps and dissection was | | | undertaken posteriorly toward the cervical rootlets. The cervical | | | rootlets were identified and used to tract anteriorly. The cervical | | | rootlets were not divided and level V was not entered. Dissection | | | was carried out to the level of the spinal accessory nerve. Once | | | completed, we continued our dissection up on to the internal jugular | | | vein. Dissection was carried out anteriorly across the internal | | | jugular vein. The specimen was dissected free of the common facial | | | vein which was preserved. The specimen was then transected at the | | | level of the strap muscles and sent to pathology for permanent | | | sectioning. At this point, we turned our attention to performing | | | the partial laryngectomy. We began by incising the midline | | | vertically from the level of the hyoid to the level of sternal | | | notch. The strap muscles were in the midline and reflected | | | laterally. The thyroid isthmus was identified. Dissection was | | | undertaken along the trachea and gentle finger dissection was taken | | | retrosternally to the level of the raymundo. The innominate artery | | | was identified and carefully avoided. The strap muscles were divided | | | at their attachment to the thyroid cartilage. The superior lobes of | | | the thyroid were reflected laterally. The superior laryngeal nerves | | | on either side were identified and preserved. With our exposure | | | adequate from the muscle standpoint, we then performed division of | | | the inferior constrictor muscles bilaterally. This was done along | | | the posterior border of the thyroid cartilage and up onto the | | | superior cornu of the thyroid cartilage and inferior cornu of the | | | thyroid cartilage. The bilateral piriform sinuses were freed | | | bilaterally. Only one-third of the thyroid ala was elevated on the | | | tumor-bearing side. Once completed, we turned our attention to the | | | inferior thyroid cornu. This was done on the right side first. The | | | inferior thyroid cornu was carefully dissected free of constrictor | | | muscle and we released the cricothyroid joint. We did this in a | | | posterior to anterior directionto avoid injury to the recurrent | | | laryngeal nerve beneath this. Once performed on the right, we | | | performed this on the left as well. Once completed, we had the | | | entire thyroid cartilage isolated and we turned to cricothyrotomy. | | | This was performed in the midline and a 6.5 armored tube was placed | | | into the patient's airway. Once completed, we turned our | | | attention back to the thyroid cartilage and set out about resecting | | | the specimen. Just prior to this, we did put in four 3-0 vicryl | | | sutures into the inferior constrictor muscle and mucosa of the | | | piriform sinuses on both sides. These were tagged and left for | | | closure at the conclusion of the procedure. The thyrohyoid muscle | | | was carefully elevated off the superior border of the thyroid | | | cartilage.The petiole of the epiglottis was incised and the larynx | | | was entered just above the false vocal folds in the midline. We | | | turned our attention to resection along the right side first. | | | Division of the false vocal fold and true vocal fold was performed | | | just anterior to the vocal process. Careful attention was paid to | | | avoid entry into the cricothyroid joint to avoid ankylosis. We | | | centered our dissection inferiorly to the cricothyrotomy. At this | | | point, the thyroid ala was opened and fractured in the midline to | | | allow complete visualization of the tumor. With the tumor exposed, | | | we were able to make careful mucosal cuts, proximally 4 to 5 mm away | | | from the tumor using a #15 blade. At the conclusion of the | | | resection, we carefully looked at the specimen and there did not | | | appear to be any tumor violation. Once completed, frozen section | | | specimens were sent which returned negative. We therefore elected | | | to proceed with reconstruction and partial laryngectomy with the | | | specimen completely removed. Reconstruction was undertaken by | | | passing of 4-0 Vicryl suture in the anterior portion of the | | | arytenoid which was carefully preserved just above the vocal | | | process. This was passed into the cricoid cartilage mucosa of the | | | conus elasticus to raise the cartilage anteriorly. The posterior | | | arytenoid mucosa was then folded over the top of the exposed cricoid | | | and arytenoid(s). This was done using 4-0 Vicryl suture. A #1 | | | Vicryl suture was passed around the cricoid, into the petiole of the | | | epiglottis, back out and around the hyoid bone in the midline. | | | Two additional #1 Vicryl sutures were passed in similar fashion 1 | | | cm apart on either side. The anterior portion of the 5th tracheal | | | ring was resected and the #8 DCT Shiley tracheotomy was placed. At | | | this point, the impaction was undertaken and the #1 Vicryl sutures | | | were sewn in place. The piriform mucosa retaining sutures within | | | the inferior constrictor muscles were then tied over across the | | | midline. Two #10 drains were placed laterally through stab | | | incisions. One was placed inferiorly into the anterior mediastinum. | | | The other was placed into the right neck dissection and superiorly | | | towards the mastoid tip. These were placed to bulb suction. The | | | wound was irrigated with several hundred cc of bactericidal saline | | | solution. The wound was then closed by reapproximating the muscles | | | and fascia in the midline using 3-0 Vicryl sutures in an interrupted | | | fashion. The platysma flaps were then replaced and a number of | | | quilting stitches were placed circumferentially around the | | | tracheotomy to attempt to exclude this. The thyroid isthmus had been | | | reapproximated in the midline as well with 3-0 Vicryl suture just | | | prior to this. The platysmal layers were then closed in an | | | interrupted fashion with 4-0 Vicryl suture. The skin was then closed | | | with 5-0 running fast gut suture in a running fashion. A Kerlix | | | wrap was placed circumferentially around the neck. IHerman | | | Ervin NORRIS acted as Dr. Moscoso's assistant speech language pathologist during the case as no | | | qualified resident was involved for any of the procedure. | | | DISPOSITION: Mr. Mahmood was returned to Anesthesia for awakening and | | | transferred to the PACU. He tolerated the procedure extremely | | | well. Herman Mueller M.D. 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 Mahmood | | | is a 47 y.o. male with a history of dysphonia, tobacco and alcohol | | | abuse. Mr. Mahmood was found to have a right vocal fold squamous cell | | | carcinoma confirmed with biopsy and re-confirmed at [facility]. Options | | | including organ preservation surgery, total laryngectomy and | | | chemoradiation therapy. He decided to pursue organ preservation | | | surgery. We discussed the procedure with Mr. Mahmood at length prior | | | to the procedure, including the risks and benefits of the procedure | | | ans well as the risk of converting to total laryngectomy. We also | | | discussed alternative including non-surgical management. After | | | answering all questions to the best of my ability, I obtained | | | informed consent from Mr. Mahmood prior to proceeding. ANESTHESIA: | | | general endotracheal tube anesthesia ESTIMATED BLOOD LOSS: | | | Less than 200 cc IV FLUID: Crystalloid ANTIBIOTICS: | | | Unasyn SPECIMENS: 1) right modified radical neck | | | dissection, levels 2a-4 2) larynx 3) right interarytenoid margin 4) | | | right subglottic margin 5) right false vocal fold margin 6) right | | | epiglottis margin 7) right paraglottic space (deep) margin | | | DRAINS/PROSTHETICS/INJECTABLES: 2 x 10 Slade-Blas type drain(s) | | | COMPLICATIONS: none FINDINGS: Deeply invasive lesion of | | | the right true vocal cord filling the right paraglottic space. It | | | did not seem to extend to the supraglottis and there was minimal | | | subglottic involvement. On frozen section, all margins were | | | negative. No lymph nodes appeared to be worrisome. Procedure: | | | Mr. Mahmood was brought to the operating room and placed in supine | | | position. Following induction of general anesthesia and endotracheal | | | intubation, Mr. Mahmood was turned 180 degrees. We performed direct | | | microlaryngoscopy using the Mansi laryngoscope and operating | | | telescopes after the teeth were protected.The findings are noted | | | above and Mr. Mahmood was deemed to be a candidate for supracricoid | | | partial laryngectomy with cricohyoidoepiglottopexy reconstruction. | | | At this point, the laryngoscope was removed and Mr. Mahmood was | | | positioned for gastrostomy tube placement. The Olympus gastroscope | | | was passed in the patient's oral cavity, oropharynx, and into the | | | patient's stomach. The stomach was carefully inflated and | | | visualized. The pylorus was noted to be free of lesions and masses | | | and there were no lesions or masses noted throughout the stomach. | | | The anterior wall was palpated with the stomach inflated. A suitable | | | position to approximate the mid clavicular line, approximately 2 | | | fingerbreadths beneath the costal margin was identified. The skin | | | was prepped and draped in sterile fashion. Incision was made with a | | | #11 blade. The needle was placed percutaneously into stomach under | | | direct guidance. A guidewire was passed and this was grasped with a | | | snare through the gastroscope. This was brought out the mouth. The | | | gastrostomy tube was then glided onto the wire and brought | | | transorally through the esophagus and into the position of the | | | stomach. The gastroscope was replaced. The tube was affixed at | | | approximately 3 cm. It had excellent rotation and did not appear to | | | buckle the skin. The stomach was suctioned free of blood and | | | secretions and the tube was connected to a Jones bag to straight | | | drain. At this point, the patient was carefully positioned for | | | resection. He was positioned on a shoulder roll with the neck gently | | | extended. The neck was carefully palpated and the thyroid notch, | | | cricoid, hyoid bone, and sternal notch were identified. An incision | | | was marked out in an U-shaped apron flap to place a tracheotomy site | | | within the line of the incision approximately 1 fingerbreadth | | | beneath his cricoid cartilage. Once completed, the neck was injected | | | with 1% lidocaine with 1:100,000 epinephrine. A total of 10 cc was | | | used. The neck was then prepped and draped in sterile fashion. | | | An apron skin incision was then made using a #15 blade and | | | subplatysmal flaps were elevated 2 cm above the hyoid bone | | | superiorly and to the sternal notch inferiorly. We first started by | | | performing right modified radical neck dissection. Subplatysmal | | | flaps were raised. The sternocleidomastoid muscle was identified | | | and dissection was undertaken along its medial edge to the mastoid | | | process and inferiorly to the clavicular head. The submandibular | | | gland and the posterior belly of the digastric were identified and | | | dissected posteriorly and anteriorly. This was done below the | | | submandibular gland to protect the marginal mandibular branch of the | | | facial nerve. The posterior facial vein was identified and ligated | | | with 3-0 silk suture. This was ligated superiorly to help protect | | | the marginal mandibular branch of the facial nerve. Dissection was | | | then undertaken along the medial aspect of the sternocleidomastoid | | | muscle. The 11th cranial nerve was identified. This was traced | | | superiorly to the level of the posterior belly of the digastric | | | muscle. The jugular vein was identified at this level as well. We | | | then transitioned just medial to the jugular vein and were able to | | | identify the hypoglossal nerve. . Along the border of the SCM, the | | | omohyoid muscle was divided using electrocautery. Dissection was | | | carried out inferiorly to the level of the clavicular head. The | | | jugular vein was identified in this region as well. At this point, | | | the specimen was elevated using Marrufo clamps and dissection was | | | undertaken posteriorly toward the cervical rootlets. The cervical | | | rootlets were identified and used to tract anteriorly. The cervical | | | rootlets were not divided and level V was not entered. Dissection | | | was carried out to the level of the spinal accessory nerve. Once | | | completed, we continued our dissection up on to the internal jugular | | | vein. Dissection was carried out anteriorly across the internal | | | jugular vein. The specimen was dissected free of the common facial | | | vein which was preserved. The specimen was then transected at the | | | level of the strap muscles and sent to pathology for permanent | | | sectioning. At this point, we turned our attention to performing | | | the partial laryngectomy. We began by incising the midline | | | vertically from the level of the hyoid to the level of sternal | | | notch. The strap muscles were in the midline and reflected | | | laterally. The thyroid isthmus was identified. Dissection was | | | undertaken along the trachea and gentle finger dissection was taken | | | retrosternally to the level of the raymundo. The innominate artery | | | was identified and carefully avoided. The strap muscles were divided | | | at their attachment to the thyroid cartilage. The superior lobes of | | | the thyroid were reflected laterally. The superior laryngeal nerves | | | on either side were identified and preserved. With our exposure | | | adequate from the muscle standpoint, we then performed division of | | | the inferior constrictor muscles bilaterally. This was done along | | | the posterior border of the thyroid cartilage and up onto the | | | superior cornu of the thyroid cartilage and inferior cornu of the | | | thyroid cartilage. The bilateral piriform sinuses were freed | | | bilaterally. Only one-third of the thyroid ala was elevated on the | | | tumor-bearing side. Once completed, we turned our attention to the | | | inferior thyroid cornu. This was done on the right side first. The | | | inferior thyroid cornu was carefully dissected free of constrictor | | | muscle and we released the cricothyroid joint. We did this in a | | | posterior to anterior directionto avoid injury to the recurrent | | | laryngeal nerve beneath this. Once performed on the right, we | | | performed this on the left as well. Once completed, we had the | | | entire thyroid cartilage isolated and we turned to cricothyrotomy. | | | This was performed in the midline and a 6.5 armored tube was placed | | | into the patient's airway. Once completed, we turned our | | | attention back to the thyroid cartilage and set out about resecting | | | the specimen. Just prior to this, we did put in four 3-0 vicryl | | | sutures into the inferior constrictor muscle and mucosa of the | | | piriform sinuses on both sides. These were tagged and left for | | | closure at the conclusion of the procedure. The thyrohyoid muscle | | | was carefully elevated off the superior border of the thyroid | | | cartilage.The petiole of the epiglottis was incised and the larynx | | | was entered just above the false vocal folds in the midline. We | | | turned our attention to resection along the right side first. | | | Division of the false vocal fold and true vocal fold was performed | | | just anterior to the vocal process. Careful attention was paid to | | | avoid entry into the cricothyroid joint to avoid ankylosis. We | | | centered our dissection inferiorly to the cricothyrotomy. At this | | | point, the thyroid ala was opened and fractured in the midline to | | | allow complete visualization of the tumor. With the tumor exposed, | | | we were able to make careful mucosal cuts, proximally 4 to 5 mm away | | | from the tumor using a #15 blade. At the conclusion of the | | | resection, we carefully looked at the specimen and there did not | | | appear to be any tumor violation. Once completed, frozen section | | | specimens were sent which returned negative. We therefore elected | | | to proceed with reconstruction and partial laryngectomy with the | | | specimen completely removed. Reconstruction was undertaken by | | | passing of 4-0 Vicryl suture in the anterior portion of the | | | arytenoid which was carefully preserved just above the vocal | | | process. This was passed into the cricoid cartilage mucosa of the | | | conus elasticus to raise the cartilage anteriorly. The posterior | | | arytenoid mucosa was then folded over the top of the exposed cricoid | | | and arytenoid(s). This was done using 4-0 Vicryl suture. A #1 | | | Vicryl suture was passed around the cricoid, into the petiole of the | | | epiglottis, back out and around the hyoid bone in the midline. | | | Two additional #1 Vicryl sutures were passed in similar fashion 1 | | | cm apart on either side. The anterior portion of the 5th tracheal | | | ring was resected and the #8 DCT Shiley tracheotomy was placed. At | | | this point, the impaction was undertaken and the #1 Vicryl sutures | | | were sewn in place. The piriform mucosa retaining sutures within | | | the inferior constrictor muscles were then tied over across the | | | midline. Two #10 drains were placed laterally through stab | | | incisions. One was placed inferiorly into the anterior mediastinum. | | | The other was placed into the right neck dissection and superiorly | | | towards the mastoid tip. These were placed to bulb suction. The | | | wound was irrigated with several hundred cc of bactericidal saline | | | solution. The wound was then closed by reapproximating the muscles | | | and fascia in the midline using 3-0 Vicryl sutures in an interrupted | | | fashion. The platysma flaps were then replaced and a number of | | | quilting stitches were placed circumferentially around the | | | tracheotomy to attempt to exclude this. The thyroid isthmus had been | | | reapproximated in the midline as well with 3-0 Vicryl suture just | | | prior to this. The platysmal layers were then closed in an | | | interrupted fashion with 4-0 Vicryl suture. The skin was then closed | | | with 5-0 running fast gut suture in a running fashion. A Kerlix | | | wrap was placed circumferentially around the neck. Herman Simeon | | | Ervin NORRIS acted as Dr. Moscoso's assistant speech language pathologist during the case as no | | | qualified resident was involved for any of the procedure. | | | DISPOSITION: Mr. Mahmood was returned to Anesthesia for awakening and | | | transferred to the PACU. He tolerated the procedure extremely | | | well. Herman Muellre M.D. 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 Mahmood | | | is a 47 y.o. male with a history of dysphonia, tobacco and alcohol | | | abuse. Mr. Mahmood was found to have a right vocal fold squamous cell | | | carcinoma confirmed with biopsy and re-confirmed at [facility]. Options | | | including organ preservation surgery, total laryngectomy and | | | chemoradiation therapy. He decided to pursue organ preservation | | | surgery. We discussed the procedure with Mr. Mahmood at length prior | | | to the procedure, including the risks and benefits of the procedure | | | ans well as the risk of converting to total laryngectomy. We also | | | discussed alternative including non-surgical management. After | | | answering all questions to the best of my ability, I obtained | | | informed consent from Mr. Mahmood prior to proceeding. ANESTHESIA: | | | general endotracheal tube anesthesia ESTIMATED BLOOD LOSS: | | | Less than 200 cc IV FLUID: Crystalloid ANTIBIOTICS: | | | Unasyn SPECIMENS: 1) right modified radical neck | | | dissection, levels 2a-4 2) larynx 3) right interarytenoid margin 4) | | | right subglottic margin 5) right false vocal fold margin 6) right | | | epiglottis margin 7) right paraglottic space (deep) margin | | | DRAINS/PROSTHETICS/INJECTABLES: 2 x 10 Slade-Blas type drain(s) | | | COMPLICATIONS: none FINDINGS: Deeply invasive lesion of | | | the right true vocal cord filling the right paraglottic space. It | | | did not seem to extend to the supraglottis and there was minimal | | | subglottic involvement. On frozen section, all margins were | | | negative. No lymph nodes appeared to be worrisome. Procedure: | | | Mr. Mahmood was brought to the operating room and placed in supine | | | position. Following induction of general anesthesia and endotracheal | | | intubation, Mr. Mahmood was turned 180 degrees. We performed direct | | | microlaryngoscopy using the Mansi laryngoscope and operating | | | telescopes after the teeth were protected.The findings are noted | | | above and Mr. Mahmood was deemed to be a candidate for supracricoid | | | partial laryngectomy with cricohyoidoepiglottopexy reconstruction. | | | At this point, the laryngoscope was removed and Mr. Mahmood was | | | positioned for gastrostomy tube placement. The Olympus gastroscope | | | was passed in the patient's oral cavity, oropharynx, and into the | | | patient's stomach. The stomach was carefully inflated and | | | visualized. The pylorus was noted to be free of lesions and masses | | | and there were no lesions or masses noted throughout the stomach. | | | The anterior wall was palpated with the stomach inflated. A suitable | | | position to approximate the mid clavicular line, approximately 2 | | | fingerbreadths beneath the costal margin was identified. The skin | | | was prepped and draped in sterile fashion. Incision was made with a | | | #11 blade. The needle was placed percutaneously into stomach under | | | direct guidance. A guidewire was passed and this was grasped with a | | | snare through the gastroscope. This was brought out the mouth. The | | | gastrostomy tube was then glided onto the wire and brought | | | transorally through the esophagus and into the position of the | | | stomach. The gastroscope was replaced. The tube was affixed at | | | approximately 3 cm. It had excellent rotation and did not appear to | | | buckle the skin. The stomach was suctioned free of blood and | | | secretions and the tube was connected to a Jones bag to straight | | | drain. At this point, the patient was carefully positioned for | | | resection. He was positioned on a shoulder roll with the neck gently | | | extended. The neck was carefully palpated and the thyroid notch, | | | cricoid, hyoid bone, and sternal notch were identified. An incision | | | was marked out in an U-shaped apron flap to place a tracheotomy site | | | within the line of the incision approximately 1 fingerbreadth | | | beneath his cricoid cartilage. Once completed, the neck was injected | | | with 1% lidocaine with 1:100,000 epinephrine. A total of 10 cc was | | | used. The neck was then prepped and draped in sterile fashion. | | | An apron skin incision was then made using a #15 blade and | | | subplatysmal flaps were elevated 2 cm above the hyoid bone | | | superiorly and to the sternal notch inferiorly. We first started by | | | performing right modified radical neck dissection. Subplatysmal | | | flaps were raised. The sternocleidomastoid muscle was identified | | | and dissection was undertaken along its medial edge to the mastoid | | | process and inferiorly to the clavicular head. The submandibular | | | gland and the posterior belly of the digastric were identified and | | | dissected posteriorly and anteriorly. This was done below the | | | submandibular gland to protect the marginal mandibular branch of the | | | facial nerve. The posterior facial vein was identified and ligated | | | with 3-0 silk suture. This was ligated superiorly to help protect | | | the marginal mandibular branch of the facial nerve. Dissection was | | | then undertaken along the medial aspect of the sternocleidomastoid | | | muscle. The 11th cranial nerve was identified. This was traced | | | superiorly to the level of the posterior belly of the digastric | | | muscle. The jugular vein was identified at this level as well. We | | | then transitioned just medial to the jugular vein and were able to | | | identify the hypoglossal nerve. . Along the border of the SCM, the | | | omohyoid muscle was divided using electrocautery. Dissection was | | | carried out inferiorly to the level of the clavicular head. The | | | jugular vein was identified in this region as well. At this point, | | | the specimen was elevated using Marrufo clamps and dissection was | | | undertaken posteriorly toward the cervical rootlets. The cervical | | | rootlets were identified and used to tract anteriorly. The cervical | | | rootlets were not divided and level V was not entered. Dissection | | | was carried out to the level of the spinal accessory nerve. Once | | | completed, we continued our dissection up on to the internal jugular | | | vein. Dissection was carried out anteriorly across the internal | | | jugular vein. The specimen was dissected free of the common facial | | | vein which was preserved. The specimen was then transected at the | | | level of the strap muscles and sent to pathology for permanent | | | sectioning. At this point, we turned our attention to performing | | | the partial laryngectomy. We began by incising the midline | | | vertically from the level of the hyoid to the level of sternal | | | notch. The strap muscles were in the midline and reflected | | | laterally. The thyroid isthmus was identified. Dissection was | | | undertaken along the trachea and gentle finger dissection was taken | | | retrosternally to the level of the raymundo. The innominate artery | | | was identified and carefully avoided. The strap muscles were divided | | | at their attachment to the thyroid cartilage. The superior lobes of | | | the thyroid were reflected laterally. The superior laryngeal nerves | | | on either side were identified and preserved. With our exposure | | | adequate from the muscle standpoint, we then performed division of | | | the inferior constrictor muscles bilaterally. This was done along | | | the posterior border of the thyroid cartilage and up onto the | | | superior cornu of the thyroid cartilage and inferior cornu of the | | | thyroid cartilage. The bilateral piriform sinuses were freed | | | bilaterally. Only one-third of the thyroid ala was elevated on the | | | tumor-bearing side. Once completed, we turned our attention to the | | | inferior thyroid cornu. This was done on the right side first. The | | | inferior thyroid cornu was carefully dissected free of constrictor | | | muscle and we released the cricothyroid joint. We did this in a | | | posterior to anterior directionto avoid injury to the recurrent | | | laryngeal nerve beneath this. Once performed on the right, we | | | performed this on the left as well. Once completed, we had the | | | entire thyroid cartilage isolated and we turned to cricothyrotomy. | | | This was performed in the midline and a 6.5 armored tube was placed | | | into the patient's airway. Once completed, we turned our | | | attention back to the thyroid cartilage and set out about resecting | | | the specimen. Just prior to this, we did put in four 3-0 vicryl | | | sutures into the inferior constrictor muscle and mucosa of the | | | piriform sinuses on both sides. These were tagged and left for | | | closure at the conclusion of the procedure. The thyrohyoid muscle | | | was carefully elevated off the superior border of the thyroid | | | cartilage.The petiole of the epiglottis was incised and the larynx | | | was entered just above the false vocal folds in the midline. We | | | turned our attention to resection along the right side first. | | | Division of the false vocal fold and true vocal fold was performed | | | just anterior to the vocal process. Careful attention was paid to | | | avoid entry into the cricothyroid joint to avoid ankylosis. We | | | centered our dissection inferiorly to the cricothyrotomy. At this | | | point, the thyroid ala was opened and fractured in the midline to | | | allow complete visualization of the tumor. With the tumor exposed, | | | we were able to make careful mucosal cuts, proximally 4 to 5 mm away | | | from the tumor using a #15 blade. At the conclusion of the | | | resection, we carefully looked at the specimen and there did not | | | appear to be any tumor violation. Once completed, frozen section | | | specimens were sent which returned negative. We therefore elected | | | to proceed with reconstruction and partial laryngectomy with the | | | specimen completely removed. Reconstruction was undertaken by | | | passing of 4-0 Vicryl suture in the anterior portion of the | | | arytenoid which was carefully preserved just above the vocal | | | process. This was passed into the cricoid cartilage mucosa of the | | | conus elasticus to raise the cartilage anteriorly. The posterior | | | arytenoid mucosa was then folded over the top of the exposed cricoid | | | and arytenoid(s). This was done using 4-0 Vicryl suture. A #1 | | | Vicryl suture was passed around the cricoid, into the petiole of the | | | epiglottis, back out and around the hyoid bone in the midline. | | | Two additional #1 Vicryl sutures were passed in similar fashion 1 | | | cm apart on either side. The anterior portion of the 5th tracheal | | | ring was resected and the #8 DCT Shiley tracheotomy was placed. At | | | this point, the impaction was undertaken and the #1 Vicryl sutures | | | were sewn in place. The piriform mucosa retaining sutures within | | | the inferior constrictor muscles were then tied over across the | | | midline. Two #10 drains were placed laterally through stab | | | incisions. One was placed inferiorly into the anterior mediastinum. | | | The other was placed into the right neck dissection and superiorly | | | towards the mastoid tip. These were placed to bulb suction. The | | | wound was irrigated with several hundred cc of bactericidal saline | | | solution. The wound was then closed by reapproximating the muscles | | | and fascia in the midline using 3-0 Vicryl sutures in an interrupted | | | fashion. The platysma flaps were then replaced and a number of | | | quilting stitches were placed circumferentially around the | | | tracheotomy to attempt to exclude this. The thyroid isthmus had been | | | reapproximated in the midline as well with 3-0 Vicryl suture just | | | prior to this. The platysmal layers were then closed in an | | | interrupted fashion with 4-0 Vicryl suture. The skin was then closed | | | with 5-0 running fast gut suture in a running fashion. A Kerlix | | | wrap was placed circumferentially around the neck. IHerman | | | Ervin NORRIS acted as Dr. Moscoso's assistant speech language pathologist during the case as no | | | qualified resident was involved for any of the procedure. | | | DISPOSITION: Mr. Mahmood was returned to Anesthesia for awakening and | | | transferred to the PACU. He tolerated the procedure extremely | | | well. Herman Mueller M.D. 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 Mahmood | | | is a 47 y.o. male with a history of dysphonia, tobacco and alcohol | | | abuse. Mr. Mahmood was found to have a right vocal fold squamous cell | | | carcinoma confirmed with biopsy and re-confirmed at [facility]. Options | | | including organ preservation surgery, total laryngectomy and | | | chemoradiation therapy. He decided to pursue organ preservation | | | surgery. We discussed the procedure with Mr. Mahmood at length prior | | | to the procedure, including the risks and benefits of the procedure | | | ans well as the risk of converting to total laryngectomy. We also | | | discussed alternative including non-surgical management. After | | | answering all questions to the best of my ability, I obtained | | | informed consent from Mr. Mahmood prior to proceeding. ANESTHESIA: | | | general endotracheal tube anesthesia ESTIMATED BLOOD LOSS: | | | Less than 200 cc IV FLUID: Crystalloid ANTIBIOTICS: | | | Unasyn SPECIMENS: 1) right modified radical neck | | | dissection, levels 2a-4 2) larynx 3) right interarytenoid margin 4) | | | right subglottic margin 5) right false vocal fold margin 6) right | | | epiglottis margin 7) right paraglottic space (deep) margin | | | DRAINS/PROSTHETICS/INJECTABLES: 2 x 10 Slade-Blas type drain(s) | | | COMPLICATIONS: none FINDINGS: Deeply invasive lesion of | | | the right true vocal cord filling the right paraglottic space. It | | | did not seem to extend to the supraglottis and there was minimal | | | subglottic involvement. On frozen section, all margins were | | | negative. No lymph nodes appeared to be worrisome. Procedure: | | | Mr. Mahmood was brought to the operating room and placed in supine | | | position. Following induction of general anesthesia and endotracheal | | | intubation, Mr. Mahmood was turned 180 degrees. We performed direct | | | microlaryngoscopy using the Mansi laryngoscope and operating | | | telescopes after the teeth were protected.The findings are noted | | | above and Mr. Mahmood was deemed to be a candidate for supracricoid | | | partial laryngectomy with cricohyoidoepiglottopexy reconstruction. | | | At this point, the laryngoscope was removed and Mr. Mahmood was | | | positioned for gastrostomy tube placement. The Olympus gastroscope | | | was passed in the patient's oral cavity, oropharynx, and into the | | | patient's stomach. The stomach was carefully inflated and | | | visualized. The pylorus was noted to be free of lesions and masses | | | and there were no lesions or masses noted throughout the stomach. | | | The anterior wall was palpated with the stomach inflated. A suitable | | | position to approximate the mid clavicular line, approximately 2 | | | fingerbreadths beneath the costal margin was identified. The skin | | | was prepped and draped in sterile fashion. Incision was made with a | | | #11 blade. The needle was placed percutaneously into stomach under | | | direct guidance. A guidewire was passed and this was grasped with a | | | snare through the gastroscope. This was brought out the mouth. The | | | gastrostomy tube was then glided onto the wire and brought | | | transorally through the esophagus and into the position of the | | | stomach. The gastroscope was replaced. The tube was affixed at | | | approximately 3 cm. It had excellent rotation and did not appear to | | | buckle the skin. The stomach was suctioned free of blood and | | | secretions and the tube was connected to a Jones bag to straight | | | drain. At this point, the patient was carefully positioned for | | | resection. He was positioned on a shoulder roll with the neck gently | | | extended. The neck was carefully palpated and the thyroid notch, | | | cricoid, hyoid bone, and sternal notch were identified. An incision | | | was marked out in an U-shaped apron flap to place a tracheotomy site | | | within the line of the incision approximately 1 fingerbreadth | | | beneath his cricoid cartilage. Once completed, the neck was injected | | | with 1% lidocaine with 1:100,000 epinephrine. A total of 10 cc was | | | used. The neck was then prepped and draped in sterile fashion. | | | An apron skin incision was then made using a #15 blade and | | | subplatysmal flaps were elevated 2 cm above the hyoid bone | | | superiorly and to the sternal notch inferiorly. We first started by | | | performing right modified radical neck dissection. Subplatysmal | | | flaps were raised. The sternocleidomastoid muscle was identified | | | and dissection was undertaken along its medial edge to the mastoid | | | process and inferiorly to the clavicular head. The submandibular | | | gland and the posterior belly of the digastric were identified and | | | dissected posteriorly and anteriorly. This was done below the | | | submandibular gland to protect the marginal mandibular branch of the | | | facial nerve. The posterior facial vein was identified and ligated | | | with 3-0 silk suture. This was ligated superiorly to help protect | | | the marginal mandibular branch of the facial nerve. Dissection was | | | then undertaken along the medial aspect of the sternocleidomastoid | | | muscle. The 11th cranial nerve was identified. This was traced | | | superiorly to the level of the posterior belly of the digastric | | | muscle. The jugular vein was identified at this level as well. We | | | then transitioned just medial to the jugular vein and were able to | | | identify the hypoglossal nerve. . Along the border of the SCM, the | | | omohyoid muscle was divided using electrocautery. Dissection was | | | carried out inferiorly to the level of the clavicular head. The | | | jugular vein was identified in this region as well. At this point, | | | the specimen was elevated using Marrufo clamps and dissection was | | | undertaken posteriorly toward the cervical rootlets. The cervical | | | rootlets were identified and used to tract anteriorly. The cervical | | | rootlets were not divided and level V was not entered. Dissection | | | was carried out to the level of the spinal accessory nerve. Once | | | completed, we continued our dissection up on to the internal jugular | | | vein. Dissection was carried out anteriorly across the internal | | | jugular vein. The specimen was dissected free of the common facial | | | vein which was preserved. The specimen was then transected at the | | | level of the strap muscles and sent to pathology for permanent | | | sectioning. At this point, we turned our attention to performing | | | the partial laryngectomy. We began by incising the midline | | | vertically from the level of the hyoid to the level of sternal | | | notch. The strap muscles were in the midline and reflected | | | laterally. The thyroid isthmus was identified. Dissection was | | | undertaken along the trachea and gentle finger dissection was taken | | | retrosternally to the level of the raymundo. The innominate artery | | | was identified and carefully avoided. The strap muscles were divided | | | at their attachment to the thyroid cartilage. The superior lobes of | | | the thyroid were reflected laterally. The superior laryngeal nerves | | | on either side were identified and preserved. With our exposure | | | adequate from the muscle standpoint, we then performed division of | | | the inferior constrictor muscles bilaterally. This was done along | | | the posterior border of the thyroid cartilage and up onto the | | | superior cornu of the thyroid cartilage and inferior cornu of the | | | thyroid cartilage. The bilateral piriform sinuses were freed | | | bilaterally. Only one-third of the thyroid ala was elevated on the | | | tumor-bearing side. Once completed, we turned our attention to the | | | inferior thyroid cornu. This was done on the right side first. The | | | inferior thyroid cornu was carefully dissected free of constrictor | | | muscle and we released the cricothyroid joint. We did this in a | | | posterior to anterior directionto avoid injury to the recurrent | | | laryngeal nerve beneath this. Once performed on the right, we | | | performed this on the left as well. Once completed, we had the | | | entire thyroid cartilage isolated and we turned to cricothyrotomy. | | | This was performed in the midline and a 6.5 armored tube was placed | | | into the patient's airway. Once completed, we turned our | | | attention back to the thyroid cartilage and set out about resecting | | | the specimen. Just prior to this, we did put in four 3-0 vicryl | | | sutures into the inferior constrictor muscle and mucosa of the | | | piriform sinuses on both sides. These were tagged and left for | | | closure at the conclusion of the procedure. The thyrohyoid muscle | | | was carefully elevated off the superior border of the thyroid | | | cartilage.The petiole of the epiglottis was incised and the larynx | | | was entered just above the false vocal folds in the midline. We | | | turned our attention to resection along the right side first. | | | Division of the false vocal fold and true vocal fold was performed | | | just anterior to the vocal process. Careful attention was paid to | | | avoid entry into the cricothyroid joint to avoid ankylosis. We | | | centered our dissection inferiorly to the cricothyrotomy. At this | | | point, the thyroid ala was opened and fractured in the midline to | | | allow complete visualization of the tumor. With the tumor exposed, | | | we were able to make careful mucosal cuts, proximally 4 to 5 mm away | | | from the tumor using a #15 blade. At the conclusion of the | | | resection, we carefully looked at the specimen and there did not | | | appear to be any tumor violation. Once completed, frozen section | | | specimens were sent which returned negative. We therefore elected | | | to proceed with reconstruction and partial laryngectomy with the | | | specimen completely removed. Reconstruction was undertaken by | | | passing of 4-0 Vicryl suture in the anterior portion of the | | | arytenoid which was carefully preserved just above the vocal | | | process. This was passed into the cricoid cartilage mucosa of the | | | conus elasticus to raise the cartilage anteriorly. The posterior | | | arytenoid mucosa was then folded over the top of the exposed cricoid | | | and arytenoid(s). This was done using 4-0 Vicryl suture. A #1 | | | Vicryl suture was passed around the cricoid, into the petiole of the | | | epiglottis, back out and around the hyoid bone in the midline. | | | Two additional #1 Vicryl sutures were passed in similar fashion 1 | | | cm apart on either side. The anterior portion of the 5th tracheal | | | ring was resected and the #8 DCT Shiley tracheotomy was placed. At | | | this point, the impaction was undertaken and the #1 Vicryl sutures | | | were sewn in place. The piriform mucosa retaining sutures within | | | the inferior constrictor muscles were then tied over across the | | | midline. Two #10 drains were placed laterally through stab | | | incisions. One was placed inferiorly into the anterior mediastinum. | | | The other was placed into the right neck dissection and superiorly | | | towards the mastoid tip. These were placed to bulb suction. The | | | wound was irrigated with several hundred cc of bactericidal saline | | | solution. The wound was then closed by reapproximating the muscles | | | and fascia in the midline using 3-0 Vicryl sutures in an interrupted | | | fashion. The platysma flaps were then replaced and a number of | | | quilting stitches were placed circumferentially around the | | | tracheotomy to attempt to exclude this. The thyroid isthmus had been | | | reapproximated in the midline as well with 3-0 Vicryl suture just | | | prior to this. The platysmal layers were then closed in an | | | interrupted fashion with 4-0 Vicryl suture. The skin was then closed | | | with 5-0 running fast gut suture in a running fashion. A ChalkflyliSpinnakr | | | wrap was placed circumferentially around the neck. I, Herman | | | Ervin NORRIS acted as Dr. Moscoso's assistant speech language pathologist during the case as no | | | qualified resident was involved for any of the procedure. | | | DISPOSITION: Mr. Mahmood was returned to Anesthesia for awakening and | | | transferred to the PACU. He tolerated the procedure extremely | | | well. Herman Mueller M.D. Laryngology Fellow | | | | | + + + CBC (HEMOGRAM) ONLY (01/23/2018 4:43 AM PDT) + + + + + + | Component | Value | Ref Range | Performed | Pathologist | | | | | At | Signature | + + + + + + | WHITE CELL | 11.74 (H) | 3.50 - 10.80 | [facility] | | | COUNT | | K/cu mm | LABORATORY | | | | | | SERVICES, | | | | | | CORE | | + + + + + + | RED CELL | 3.52 (L) | 4.50 - 6.00 | [facility] | | | COUNT | | M/cu mm | LABORATORY | | | | | | SERVICES, | | | | | | CORE | | + + + + + + | HEMOGLOBIN | 11.5 (L) | 13.5 - 17.5 | [facility] | | | | | g/dL | LABORATORY | | | | | | SERVICES, | | | | | | CORE | | + + + + + + | HEMATOCRIT | 35.2 (L) | 41.0 - 53.0 % | [facility] | | | | | | LABORATORY | | | | | | SERVICES, | | | | | | CORE | | + + + + + + | MCV | 100.0 (H) | 80.0 - 96.0 fL | [facility] | | | | | | LABORATORY | | | | | | SERVICES, | | | | | | CORE | | + + + + + + | MCHC | 32.7 | 33.0 - 35.5 | [facility] | | | | | g/dL | LABORATORY | | | | | | SERVICES, | | | | | | CORE | | + + + + + + | RDW SD | 47.7 (H) | 35.1 - 46.3 fL | [facility] | | | | | | LABORATORY | | | | | | SERVICES, | | | | | | CORE | | + + + + + + | PLATELET | 356 | 150 - 400 K/cu | [facility] | | | COUNT | | mm | LABORATORY | | | | | | SERVICES, | | | | | | CORE | | + + + + + + | MPV | 10.1 | 9.7 - 12.3 fL | [facility] | | | | | | LABORATORY | | | | | | SERVICES, | | | | | | CORE | | + + + + + + | NRBC% | 0.0 | 0.0 - 0.3 % | [facility] | | | | | | LABORATORY | | | | | | SERVICES, | | | | | | CORE | | + + + + + + | NRBC# | 0.00 | 0.00 - 0.02 | [facility] | | | | | K/cu mm | LABORATORY | | | | | | SERVICES, | | | | | | CORE | | + + + + + + + + | Specimen | + + | Blood - Blood | | (substance) | + + + + + + + | Performing | Address | City/State/Zipcode | Phone Number | | Organization | | | | + + + + + | [facility] | [address] | [place] [address] | | | [place], [place] | [address] | | | + + + + + PHOSPHORUS, PLASMA (01/23/2018 4:43 AM PDT) + +-------+ + + + | Component | Value | Ref Range | Performed | Pathologist | | | | | At | Signature | + +-------+ + + + | PHOSPHORUS, | 3.4 | 2.4 - 4.7 mg/dL | [facility] | | | PLASMA | | | LABORATORY | | | (LAB) | | | SERVICES, | | | | | | CORE | | + +-------+ + + + + + | Specimen | + + | Blood - Blood | | (substance) | + + + + + + + | Performing | Address | City/State/Zipcode | Phone Number | | Organization | | | | + + + + + | [facility] | [address] | [place] [address] | | | SERVICES, CORE | [address] | | | + + + + + MAGNESIUM, PLASMA (01/23/2018 4:43 AM PDT) + +-------+ + + + | Component | Value | Ref Range | Performed | Pathologist | | | | | At | Signature | + +-------+ + + + | MAGNESIUM,P | 2.6 | 1.6 - 2.6 mg/dL | [facility] | | | LASMA | | | LABORATORY | | | | | | [place], | | | | | | CORE | | + +-------+ + + + + + | Specimen | + + | Blood - Blood | | (substance) | + + + + + | Narrative | Performed At | + + + | Reference range change effective 05/31/17. | [facility] | | | LABORATORY | | | SERVICES, CORE | + + + + + + + + | Performing | Address | City/State/Zipcode | Phone Number | | Organization | | | | + + + + + | [facility] | [address] | [place] [address] | | | SERVICES, CORE | [address] | | | + + + + + BASIC METABOLIC SET (NA, K, CL, TCO2, BUN, CR, GLU, CA) (01/23/2018 4:43 AM PDT) + +---------+ + + + | Component | Value | Ref Range | Performed | Pathologist | | | | | At | Signature | + +---------+ + + + | GLUCOSE, | 118 (H) | 70 - 99 mg/dL | [facility] | | | PLASMA | | | LABORATORY | | | (LAB) | | | SERVICES, | | | | | | CORE | | + +---------+ + + + | BUN, PLASMA | 12 | 6 - 20 mg/dL | [facility] | | | (LAB) | | | LABORATORY | | | | | | SERVICES, | | | | | | CORE | | + +---------+ + + + | CREATININE | 0.71 | 0.70 - 1.30 | [facility] | | | PLASMA | | mg/dL | LABORATORY | | | (LAB) | | | SERVICES, | | | | | | CORE | | + +---------+ + + + | EGFR | >60 | >60 mL/min | [facility] | | | - | | | LABORATORY | | | [facility] | | | SERVICES, | | | | | | CORE | | + +---------+ + + + | EGFR NON | >60 | >60 mL/min | [facility] | | | -DUANE | | | LABORATORY | | | RICAN | | | SERVICES, | | | | | | CORE | | + +---------+ + + + | SODIUM, | 143 | 136 - 145 | [facility] | | | PLASMA | | mmol/L | LABORATORY | | | (LAB) | | | SERVICES, | | | | | | CORE | | + +---------+ + + + | POTASSIUM, | 4.0 | 3.4 - 5.0 | [facility] | | | PLASMA | | mmol/L | LABORATORY | | | (LAB) | | | SERVICES, | | | | | | CORE | | + +---------+ + + + | CHLORIDE, | 109 (H) | 97 - 108 mmol/L | [facility] | | | PLASMA | | | LABORATORY | | | (LAB) | | | SERVICES, | | | | | | CORE | | + +---------+ + + + | TOTAL CO2, | 25 | 21 - 32 mmol/L | [facility] | | | PLASMA | | | LABORATORY | | | (LAB) | | | SERVICES, | | | | | | CORE | | + +---------+ + + + | CALCIUM, | 9.4 | 8.6 - 10.2 | [facility] | | | PLASMA | | mg/dL | LABORATORY | | | (LAB) | | | SERVICES, | | | | | | CORE | | + +---------+ + + + | ANION GAP | 9 | 4 - 11 mmol/L | [facility] | | | | | | LABORATORY | | | | | | SERVICES, | | | | | | CORE | | + +---------+ + + + | POTASSIUM | No Hemo | | [facility] | | | CMNT | | | LABORATORY | | | | | | SERVICES, | | | | | | CORE | | + +---------+ + + + + + | Specimen | + + | Blood - Blood | | (substance) | + + + + + | Narrative | Performed At | + + + | Adult glucose reference range change effective 7-17. GFR is | [facility] | | estimated using the MDRD equation recommended by the National Kidney | LABORATORY | | Disease Education Program. Estimated GFR Interpretive Information: | [facility] | | <60 mL/min/1.73 sq m Chronic Kidney Disease | | | <15 mL/min/1.73 sq m Kidney Failure Estimated | | | GFR greater that 60 mL/min/1.73 sq m is of limited clinical value. | | | The MDRD equation is not valid in the following situations: - | | | Patients under 18 years of age - Severe malnutrition or obesity - | | | Vegetarian diet - Rapidly changing kidney function | | + + + + + + + + | Performing | Address | City/State/Zipcode | Phone Number | | Organization | | | | + + + + + | [facility] | [address] | [place] [address] | | | [facility] | [address] | | | + + + + + CBC (HEMOGRAM) ONLY (01/22/2018 4:46 AM PDT) + + + + + + | Component | Value | Ref Range | Performed | Pathologist | | | | | At | Signature | + + + + + + | WHITE CELL | 12.04 (H) | 3.50 - 10.80 | [facility] | | | COUNT | | K/cu mm | LABORATORY | | | | | | SERVICES, | | | | | | CORE | | + + + + + + | RED CELL | 3.45 (L) | 4.50 - 6.00 | [facility] | | | COUNT | | M/cu mm | LABORATORY | | | | | | SERVICES, | | | | | | CORE | | + + + + + + | HEMOGLOBIN | 11.2 (L) | 13.5 - 17.5 | [facility] | | | | | g/dL | LABORATORY | | | | | | SERVICES, | | | | | | CORE | | + + + + + + | HEMATOCRIT | 34.3 (L) | 41.0 - 53.0 % | [facility] | | | | | | LABORATORY | | | | | | SERVICES, | | | | | | CORE | | + + + + + + | MCV | 99.4 (H) | 80.0 - 96.0 fL | [facility] | | | | | | LABORATORY | | | | | | SERVICES, | | | | | | CORE | | + + + + + + | MCHC | 32.7 | 33.0 - 35.5 | [facility] | | | | | g/dL | LABORATORY | | | | | | SERVICES, | | | | | | CORE | | + + + + + + | RDW SD | 46.4 (H) | 35.1 - 46.3 fL | [facility] | | | | | | LABORATORY | | | | | | SERVICES, | | | | | | CORE | | + + + + + + | PLATELET | 284 | 150 - 400 K/cu | [facility] | | | COUNT | | mm | LABORATORY | | | | | | SERVICES, | | | | | | CORE | | + + + + + + | MPV | 10.1 | 9.7 - 12.3 fL | [facility] | | | | | | LABORATORY | | | | | | SERVICES, | | | | | | CORE | | + + + + + + | NRBC% | 0.0 | 0.0 - 0.3 % | [facility] | | | | | | LABORATORY | | | | | | SERVICES, | | | | | | CORE | | + + + + + + | NRBC# | 0.00 | 0.00 - 0.02 | [facility] | | | | | K/cu mm | LABORATORY | | | | | | SERVICES, | | | | | | CORE | | + + + + + + + + | Specimen | + + | Blood - Blood | | (substance) | + + + + + + + | Performing | Address | City/State/Zipcode | Phone Number | | Organization | | | | + + + + + | [facility] | [address] | [place] [address] | | | SERVICES, CORE | [address] | | | + + + + + PHOSPHORUS, PLASMA (01/22/2018 4:46 AM PDT) + +-------+ + + + | Component | Value | Ref Range | Performed | Pathologist | | | | | At | Signature | + +-------+ + + + | PHOSPHORUS, | 2.9 | 2.4 - 4.7 mg/dL | [facility] | | | PLASMA | | | LABORATORY | | | (LAB) | | | SERVICES, | | | | | | CORE | | + +-------+ + + + + + | Specimen | + + | Blood - Blood | | (substance) | + + + + + + + | Performing | Address | City/State/Zipcode | Phone Number | | Organization | | | | + + + + + | [facility] | [address] | [place] [address] | | | SERVICES, CORE | [address] | | | + + + + + MAGNESIUM, PLASMA (01/22/2018 4:46 AM PDT) + +-------+ + + + | Component | Value | Ref Range | Performed | Pathologist | | | | | At | Signature | + +-------+ + + + | MAGNESIUM,P | 2.4 | 1.6 - 2.6 mg/dL | [facility] | | | LASMA | | | LABORATORY | | | | | | SERVICES, | | | | | | CORE | | + +-------+ + + + + + | Specimen | + + | Blood - Blood | | (substance) | + + + + + | Narrative | Performed At | + + + | Reference range change effective 05/31/17. | [facility] | | | LABORATORY | | | [facility] | + + + + + + + + | Performing | Address | City/State/Zipcode | Phone Number | | Organization | | | | + + + + + | [facility] | [address] | [place] [address] | | | NUN[facility] | [address] | | | + + + + + BASIC METABOLIC SET (NA, K, CL, TCO2, BUN, CR, GLU, CA) (01/22/2018 4:46 AM PDT) + +---------+ + + + | Component | Value | Ref Range | Performed | Pathologist | | | | | At | Signature | + +---------+ + + + | GLUCOSE, | 98 | 70 - 99 mg/dL | [facility] | | | PLASMA | | | LABORATORY | | | (LAB) | | | SERVICES, | | | | | | CORE | | + +---------+ + + + | BUN, PLASMA | 13 | 6 - 20 mg/dL | [facility] | | | (LAB) | | | LABORATORY | | | | | | SERVICES, | | | | | | CORE | | + +---------+ + + + | CREATININE | 0.73 | 0.70 - 1.30 | [facility] | | | PLASMA | | mg/dL | LABORATORY | | | (LAB) | | | SERVICES, | | | | | | CORE | | + +---------+ + + + | EGFR | >60 | >60 mL/min | [facility] | | | - | | | LABORATORY | | | [facility] | | | SERVICES, | | | | | | CORE | | + +---------+ + + + | EGFR NON | >60 | >60 mL/min | [facility] | | | -[facility] | | | LABORATORY | | | [facility] | | | SERVICES, | | | | | | CORE | | + +---------+ + + + | SODIUM, | 139 | 136 - 145 | [facility] | | | PLASMA | | mmol/L | LABORATORY | | | (LAB) | | | SERVICES, | | | | | | CORE | | + +---------+ + + + | POTASSIUM, | 3.7 | 3.4 - 5.0 | [facility] | | | PLASMA | | mmol/L | LABORATORY | | | (LAB) | | | SERVICES, | | | | | | CORE | | + +---------+ + + + | CHLORIDE, | 105 | 97 - 108 mmol/L | [facility] | | | PLASMA | | | LABORATORY | | | (LAB) | | | SERVICES, | | | | | | CORE | | + +---------+ + + + | TOTAL CO2, | 26 | 21 - 32 mmol/L | [facility] | | | PLASMA | | | LABORATORY | | | (LAB) | | | SERVICES, | | | | | | CORE | | + +---------+ + + + | CALCIUM, | 9.0 | 8.6 - 10.2 | [facility] | | | PLASMA | | mg/dL | LABORATORY | | | (LAB) | | | SERVICES, | | | | | | CORE | | + +---------+ + + + | ANION GAP | 8 | 4 - 11 mmol/L | [facility] | | | | | | LABORATORY | | | | | | SERVICES, | | | | | | CORE | | + +---------+ + + + | POTASSIUM | No Hemo | | [facility] | | | CMNT | | | LABORATORY | | | | | | SERVICES, | | | | | | CORE | | + +---------+ + + + + + | Specimen | + + | Blood - Blood | | (substance) | + + + + + | Narrative | Performed At | + + + | Adult glucose reference range change effective 7-17. GFR is | [facility] | | estimated using the MDRD equation recommended by the National Kidney | LABORATORY | | Disease Education Program. Estimated GFR Interpretive Information: | SERVICES, CORE | | <60 mL/min/1.73 sq m Chronic Kidney Disease | | | <15 mL/min/1.73 sq m Kidney Failure Estimated | | | GFR greater that 60 mL/min/1.73 sq m is of limited clinical value. | | | The MDRD equation is not valid in the following situations: - | | | Patients under 18 years of age - Severe malnutrition or obesity - | | | Vegetarian diet - Rapidly changing kidney function | | + + + + + + + + | Performing | Address | City/State/Zipcode | Phone Number | | Organization | | | | + + + + + | [facility] | [address] | [place] [address] | | | SERVICES, CORE | [address] | | | + + + + + CBC (HEMOGRAM) ONLY (01/21/2018 5:26 AM PDT) + + + + + + | Component | Value | Ref Range | Performed | Pathologist | | | | | At | Signature | + + + + + + | WHITE CELL | 13.70 (H) | 3.50 - 10.80 | [facility] | | | COUNT | | K/cu mm | LABORATORY | | | | | | SERVICES, | | | | | | CORE | | + + + + + + | RED CELL | 3.30 (L) | 4.50 - 6.00 | [facility] | | | COUNT | | M/cu mm | LABORATORY | | | | | | SERVICES, | | | | | | CORE | | + + + + + + | HEMOGLOBIN | 10.8 (L) | 13.5 - 17.5 | [facility] | | | | | g/dL | LABORATORY | | | | | | SERVICES, | | | | | | CORE | | + + + + + + | HEMATOCRIT | 32.9 (L) | 41.0 - 53.0 % | [facility] | | | | | | LABORATORY | | | | | | SERVICES, | | | | | | CORE | | + + + + + + | MCV | 99.7 (H) | 80.0 - 96.0 fL | [facility] | | | | | | LABORATORY | | | | | | SERVICES, | | | | | | CORE | | + + + + + + | MCHC | 32.8 | 33.0 - 35.5 | [facility] | | | | | g/dL | LABORATORY | | | | | | SERVICES, | | | | | | CORE | | + + + + + + | RDW SD | 45.7 | 35.1 - 46.3 fL | [facility] | | | | | | LABORATORY | | | | | | SERVICES, | | | | | | CORE | | + + + + + + | PLATELET | 235 | 150 - 400 K/cu | [facility] | | | COUNT | | mm | LABORATORY | | | | | | SERVICES, | | | | | | CORE | | + + + + + + | MPV | 10.3 | 9.7 - 12.3 fL | [facility] | | | | | | LABORATORY | | | | | | SERVICES, | | | | | | CORE | | + + + + + + | NRBC% | 0.0 | 0.0 - 0.3 % | [facility] | | | | | | LABORATORY | | | | | | SERVICES, | | | | | | CORE | | + + + + + + | NRBC# | 0.00 | 0.00 - 0.02 | [facility] | | | | | K/cu mm | LABORATORY | | | | | | SERVICES, | | | | | | CORE | | + + + + + + + + | Specimen | + + | Blood - Blood | | (substance) | + + + + + + + | Performing | Address | City/State/Zipcode | Phone Number | | Organization | | | | + + + + + | [facility] | [address] | [place] [address] | | | SERVICES, CORE | [address] | | | + + + + + PHOSPHORUS, PLASMA (01/21/2018 5:26 AM PDT) + +---------+ + + + | Component | Value | Ref Range | Performed | Pathologist | | | | | At | Signature | + +---------+ + + + | PHOSPHORUS, | 2.3 (L) | 2.4 - 4.7 mg/dL | [facility] | | | PLASMA | | | LABORATORY | | | (LAB) | | | SERVICES, | | | | | | CORE | | + +---------+ + + + + + | Specimen | + + | Blood - Blood | | (substance) | + + + + + + + | Performing | Address | City/State/Zipcode | Phone Number | | Organization | | | | + + + + + | [facility] | [address] | [place] [address] | | | SERVICES, CORE | [address] | | | + + + + + MAGNESIUM, PLASMA (01/21/2018 5:26 AM PDT) + +-------+ + + + | Component | Value | Ref Range | Performed | Pathologist | | | | | At | Signature | + +-------+ + + + | MAGNESIUM,P | 2.5 | 1.6 - 2.6 mg/dL | [facility] | | | LASMA | | | LABORATORY | | | | | | SERVICES, | | | | | | CORE | | + +-------+ + + + + + | Specimen | + + | Blood - Blood | | (substance) | + + + + + | Narrative | Performed At | + + + | Reference range change effective 05/31/17. | [facility] | | | LABORATORY | | | SERVICES, CORE | + + + + + + + + | Performing | Address | City/State/Zipcode | Phone Number | | Organization | | | | + + + + + | [facility] | [address] | [place] [address] | | | SERVICES, CORE | [address] | | | + + + + + BASIC METABOLIC SET (NA, K, CL, TCO2, BUN, CR, GLU, CA) (01/21/2018 5:26 AM PDT) + +---------+ + + + | Component | Value | Ref Range | Performed | Pathologist | | | | | At | Signature | + +---------+ + + + | GLUCOSE, | 135 (H) | 70 - 99 mg/dL | [facility] | | | PLASMA | | | LABORATORY | | | (LAB) | | | SERVICES, | | | | | | CORE | | + +---------+ + + + | BUN, PLASMA | 11 | 6 - 20 mg/dL | [facility] | | | (LAB) | | | LABORATORY | | | | | | SERVICES, | | | | | | CORE | | + +---------+ + + + | CREATININE | 0.81 | 0.70 - 1.30 | [facility] | | | PLASMA | | mg/dL | LABORATORY | | | (LAB) | | | SERVICES, | | | | | | CORE | | + +---------+ + + + | EGFR | >60 | >60 mL/min | [facility] | | | - | | | LABORATORY | | | [facility] | | | SERVICES, | | | | | | CORE | | + +---------+ + + + | EGFR NON | >60 | >60 mL/min | [facility] | | | -[facility] | | | LABORATORY | | | [facility] | | | SERVICES, | | | | | | CORE | | + +---------+ + + + | SODIUM, | 139 | 136 - 145 | [facility] | | | PLASMA | | mmol/L | LABORATORY | | | (LAB) | | | SERVICES, | | | | | | CORE | | + +---------+ + + + | POTASSIUM, | 3.9 | 3.4 - 5.0 | [facility] | | | PLASMA | | mmol/L | LABORATORY | | | (LAB) | | | SERVICES, | | | | | | CORE | | + +---------+ + + + | CHLORIDE, | 104 | 97 - 108 mmol/L | [facility] | | | PLASMA | | | LABORATORY | | | (LAB) | | | SERVICES, | | | | | | CORE | | + +---------+ + + + | TOTAL CO2, | 30 | 21 - 32 mmol/L | [facility] | | | PLASMA | | | LABORATORY | | | (LAB) | | | SERVICES, | | | | | | CORE | | + +---------+ + + + | CALCIUM, | 8.5 (L) | 8.6 - 10.2 | [facility] | | | PLASMA | | mg/dL | LABORATORY | | | (LAB) | | | SERVICES, | | | | | | CORE | | + +---------+ + + + | ANION GAP | 5 | 4 - 11 mmol/L | [facility] | | | | | | LABORATORY | | | | | | SERVICES, | | | | | | CORE | | + +---------+ + + + | POTASSIUM | No Hemo | | [facility] | | | CMNT | | | LABORATORY | | | | | | SERVICES, | | | | | | CORE | | + +---------+ + + + + + | Specimen | + + | Blood - Blood | | (substance) | + + + + + | Narrative | Performed At | + + + | Adult glucose reference range change effective 7-17. GFR is | [facility] | | estimated using the MDRD equation recommended by the National Kidney | LABORATORY | | Disease Education Program. Estimated GFR Interpretive Information: | SERVICES, CORE | | <60 mL/min/1.73 sq m Chronic Kidney Disease | | | <15 mL/min/1.73 sq m Kidney Failure Estimated | | | GFR greater that 60 mL/min/1.73 sq m is of limited clinical value. | | | The MDRD equation is not valid in the following situations: - | | | Patients under 18 years of age - Severe malnutrition or obesity - | | | Vegetarian diet - Rapidly changing kidney function | | + + + + + + + + | Performing | Address | City/State/Zipcode | Phone Number | | Organization | | | | + + + + + | [facility] | [address] | [place] [address] | | | SERVICES, CORE | [address] | | | + + + + + CBC (HEMOGRAM) ONLY (01/20/2018 5:14 AM PDT) + + + + + + | Component | Value | Ref Range | Performed | Pathologist | | | | | At | Signature | + + + + + + | WHITE CELL | 16.83 (H) | 3.50 - 10.80 | [facility] | | | COUNT | | K/cu mm | LABORATORY | | | | | | SERVICES, | | | | | | CORE | | + + + + + + | RED CELL | 3.78 (L) | 4.50 - 6.00 | [facility] | | | COUNT | | M/cu mm | LABORATORY | | | | | | SERVICES, | | | | | | CORE | | + + + + + + | HEMOGLOBIN | 12.6 (L) | 13.5 - 17.5 | [facility] | | | | | g/dL | LABORATORY | | | | | | SERVICES, | | | | | | CORE | | + + + + + + | HEMATOCRIT | 37.0 (L) | 41.0 - 53.0 % | [facility] | | | | | | LABORATORY | | | | | | SERVICES, | | | | | | CORE | | + + + + + + | MCV | 97.9 (H) | 80.0 - 96.0 fL | [facility] | | | | | | LABORATORY | | | | | | SERVICES, | | | | | | CORE | | + + + + + + | MCHC | 34.1 | 33.0 - 35.5 | [facility] | | | | | g/dL | LABORATORY | | | | | | SERVICES, | | | | | | CORE | | + + + + + + | RDW SD | 44.3 | 35.1 - 46.3 fL | [facility] | | | | | | LABORATORY | | | | | | SERVICES, | | | | | | CORE | | + + + + + + | PLATELET | 237 | 150 - 400 K/cu | [facility] | | | COUNT | | mm | LABORATORY | | | | | | SERVICES, | | | | | | CORE | | + + + + + + | MPV | 10.3 | 9.7 - 12.3 fL | [facility] | | | | | | LABORATORY | | | | | | SERVICES, | | | | | | CORE | | + + + + + + | NRBC% | 0.0 | 0.0 - 0.3 % | [facility] | | | | | | LABORATORY | | | | | | SERVICES, | | | | | | CORE | | + + + + + + | NRBC# | 0.00 | 0.00 - 0.02 | [facility] | | | | | K/cu mm | LABORATORY | | | | | | SERVICES, | | | | | | CORE | | + + + + + + + + | Specimen | + + | Blood - Blood | | (substance) | + + + + + + + | Performing | Address | City/State/Zipcode | Phone Number | | Organization | | | | + + + + + | [facility] | [address] | [place] [address] | | | SERVICES, CORE | [address] | | | + + + + + PHOSPHORUS, PLASMA (01/20/2018 5:14 AM PDT) + +-------+ + + + | Component | Value | Ref Range | Performed | Pathologist | | | | | At | Signature | + +-------+ + + + | PHOSPHORUS, | 3.4 | 2.4 - 4.7 mg/dL | [facility] | | | PLASMA | | | LABORATORY | | | (LAB) | | | SERVICES, | | | | | | CORE | | + +-------+ + + + + + | Specimen | + + | Blood - Blood | | (substance) | + + + + + + + | Performing | Address | City/State/Zipcode | Phone Number | | Organization | | | | + + + + + | [facility] | [address] | [place] [address] | | | SERVICES, CORE | [address] | | | + + + + + MAGNESIUM, PLASMA (01/20/2018 5:14 AM PDT) + +-------+ + + + | Component | Value | Ref Range | Performed | Pathologist | | | | | At | Signature | + +-------+ + + + | MAGNESIUM,P | 2.2 | 1.6 - 2.6 mg/dL | [facility] | | | LASMA | | | LABORATORY | | | | | | SERVICES, | | | | | | CORE | | + +-------+ + + + + + | Specimen | + + | Blood - Blood | | (substance) | + + + + + | Narrative | Performed At | + + + | Reference range change effective 05/31/17. | [facility] | | | LABORATORY | | | [facility] | + + + + + + + + | Performing | Address | City/State/Zipcode | Phone Number | | Organization | | | | + + + + + | [facility] | [address] | [place] [address] | | | SERVICES, NUNU | [address] | | | + + + + + BASIC METABOLIC SET (NA, K, CL, TCO2, BUN, CR, GLU, CA) (01/20/2018 5:14 AM PDT) + +---------+ + + + | Component | Value | Ref Range | Performed | Pathologist | | | | | At | Signature | + +---------+ + + + | GLUCOSE, | 114 (H) | 70 - 99 mg/dL | [facility] | | | PLASMA | | | LABORATORY | | | (LAB) | | | SERVICES, | | | | | | CORE | | + +---------+ + + + | BUN, PLASMA | 9 | 6 - 20 mg/dL | [facility] | | | (LAB) | | | LABORATORY | | | | | | SERVICES, | | | | | | CORE | | + +---------+ + + + | CREATININE | 0.83 | 0.70 - 1.30 | [facility] | | | PLASMA | | mg/dL | LABORATORY | | | (LAB) | | | SERVICES, | | | | | | CORE | | + +---------+ + + + | EGFR | >60 | >60 mL/min | [facility] | | | - | | | LABORATORY | | | [facility] | | | SERVICES, | | | | | | CORE | | + +---------+ + + + | EGFR NON | >60 | >60 mL/min | [facility] | | | -[facility] | | | LABORATORY | | | [facility] | | | SERVICES, | | | | | | CORE | | + +---------+ + + + | SODIUM, | 135 (L) | 136 - 145 | [facility] | | | PLASMA | | mmol/L | LABORATORY | | | (LAB) | | | SERVICES, | | | | | | CORE | | + +---------+ + + + | POTASSIUM, | 4.1 | 3.4 - 5.0 | [facility] | | | PLASMA | | mmol/L | LABORATORY | | | (LAB) | | | SERVICES, | | | | | | CORE | | + +---------+ + + + | CHLORIDE, | 101 | 97 - 108 mmol/L | [facility] | | | PLASMA | | | LABORATORY | | | (LAB) | | | SERVICES, | | | | | | CORE | | + +---------+ + + + | TOTAL CO2, | 28 | 21 - 32 mmol/L | [facility] | | | PLASMA | | | LABORATORY | | | (LAB) | | | SERVICES, | | | | | | CORE | | + +---------+ + + + | CALCIUM, | 8.7 | 8.6 - 10.2 | [facility] | | | PLASMA | | mg/dL | LABORATORY | | | (LAB) | | | SERVICES, | | | | | | CORE | | + +---------+ + + + | ANION GAP | 6 | 4 - 11 mmol/L | [facility] | | | | | | LABORATORY | | | | | | SERVICES, | | | | | | CORE | | + +---------+ + + + | POTASSIUM | No Hemo | | [facility] | | | CMNT | | | LABORATORY | | | | | | SERVICES, | | | | | | CORE | | + +---------+ + + + + + | Specimen | + + | Blood - Blood | | (substance) | + + + + + | Narrative | Performed At | + + + | Adult glucose reference range change effective 7-12-17. GFR is | [facility] | | estimated using the MDRD equation recommended by the National Kidney | LABORATORY | | Disease Education Program. Estimated GFR Interpretive Information: | SERVICES, CORE | | <60 mL/min/1.73 sq m Chronic Kidney Disease | | | <15 mL/min/1.73 sq m Kidney Failure Estimated | | | GFR greater that 60 mL/min/1.73 sq m is of limited clinical value. | | | The MDRD equation is not valid in the following situations: - | | | Patients under 18 years of age - Severe malnutrition or obesity - | | | Vegetarian diet - Rapidly changing kidney function | | + + + + + + + + | Performing | Address | City/State/Zipcode | Phone Number | | Organization | | | | + + + + + | [facility] | [address] | [place] [address] | | | SERVICES, NUNU | [address] | | | + + + + + CBC (HEMOGRAM) ONLY (01/19/2018 5:10 AM PDT) + + + + + + | Component | Value | Ref Range | Performed | Pathologist | | | | | At | Signature | + + + + + + | WHITE CELL | 15.36 (H) | 3.50 - 10.80 | [facility] | | | COUNT | | K/cu mm | LABORATORY | | | | | | SERVICES, | | | | | | CORE | | + + + + + + | RED CELL | 3.83 (L) | 4.50 - 6.00 | [facility] | | | COUNT | | M/cu mm | LABORATORY | | | | | | SERVICES, | | | | | | CORE | | + + + + + + | HEMOGLOBIN | 12.7 (L) | 13.5 - 17.5 | [facility] | | | | | g/dL | LABORATORY | | | | | | SERVICES, | | | | | | CORE | | + + + + + + | HEMATOCRIT | 37.0 (L) | 41.0 - 53.0 % | [facility] | | | | | | LABORATORY | | | | | | SERVICES, | | | | | | CORE | | + + + + + + | MCV | 96.6 (H) | 80.0 - 96.0 fL | [facility] | | | | | | LABORATORY | | | | | | SERVICES, | | | | | | CORE | | + + + + + + | MCHC | 34.3 | 33.0 - 35.5 | [facility] | | | | | g/dL | LABORATORY | | | | | | SERVICES, | | | | | | CORE | | + + + + + + | RDW SD | 42.5 | 35.1 - 46.3 fL | [facility] | | | | | | LABORATORY | | | | | | SERVICES, | | | | | | CORE | | + + + + + + | PLATELET | 179 | 150 - 400 K/cu | [facility] | | | COUNT | | mm | LABORATORY | | | | | | SERVICES, | | | | | | CORE | | + + + + + + | MPV | 9.9 | 9.7 - 12.3 fL | [facility] | | | | | | LABORATORY | | | | | | SERVICES, | | | | | | CORE | | + + + + + + | NRBC% | 0.0 | 0.0 - 0.3 % | [facility] | | | | | | LABORATORY | | | | | | SERVICES, | | | | | | CORE | | + + + + + + | NRBC# | 0.00 | 0.00 - 0.02 | [facility] | | | | | K/cu mm | LABORATORY | | | | | | SERVICES, | | | | | | CORE | | + + + + + + + + | Specimen | + + | Blood - Blood | | (substance) | + + + + + + + | Performing | Address | City/State/Zipcode | Phone Number | | Organization | | | | + + + + + | [facility] | [address] | [place] [address] | | | SERVICES, CORE | [address] | | | + + + + + PHOSPHORUS, PLASMA (01/19/2018 5:10 AM PDT) + +-------+ + + + | Component | Value | Ref Range | Performed | Pathologist | | | | | At | Signature | + +-------+ + + + | PHOSPHORUS, | 2.6 | 2.4 - 4.7 mg/dL | [facility] | | | PLASMA | | | LABORATORY | | | (LAB) | | | SERVICES, | | | | | | CORE | | + +-------+ + + + + + | Specimen | + + | Blood - Blood | | (substance) | + + + + + + + | Performing | Address | City/State/Zipcode | Phone Number | | Organization | | | | + + + + + | [facility] | [address] | [place] [address] | | | SERVICES, CORE | [address] | | | + + + + + MAGNESIUM, PLASMA (01/19/2018 5:10 AM PDT) + +-------+ + + + | Component | Value | Ref Range | Performed | Pathologist | | | | | At | Signature | + +-------+ + + + | MAGNESIUM,P | 2.2 | 1.6 - 2.6 mg/dL | [facility] | | | LASMA | | | LABORATORY | | | | | | SERVICES, | | | | | | CORE | | + +-------+ + + + + + | Specimen | + + | Blood - Blood | | (substance) | + + + + + | Narrative | Performed At | + + + | Reference range change effective 05/31/17. | [facility] | | | LABORATORY | | | SERVICES, CORE | + + + + + + + + | Performing | Address | City/State/Zipcode | Phone Number | | Organization | | | | + + + + + | [facility] | [address] | [place] [address] | | | SERVICES, CORE | [address] | | | + + + + + BASIC METABOLIC SET (NA, K, CL, TCO2, BUN, CR, GLU, CA) (01/19/2018 5:10 AM PDT) + +---------+ + + + | Component | Value | Ref Range | Performed | Pathologist | | | | | At | Signature | + +---------+ + + + | GLUCOSE, | 103 (H) | 70 - 99 mg/dL | [facility] | | | PLASMA | | | LABORATORY | | | (LAB) | | | SERVICES, | | | | | | CORE | | + +---------+ + + + | BUN, PLASMA | 8 | 6 - 20 mg/dL | [facility] | | | (LAB) | | | LABORATORY | | | | | | SERVICES, | | | | | | CORE | | + +---------+ + + + | CREATININE | 0.76 | 0.70 - 1.30 | [facility] | | | PLASMA | | mg/dL | LABORATORY | | | (LAB) | | | SERVICES, | | | | | | CORE | | + +---------+ + + + | EGFR | >60 | >60 mL/min | [facility] | | | - | | | LABORATORY | | | [facility] | | | SERVICES, | | | | | | CORE | | + +---------+ + + + | EGFR NON | >60 | >60 mL/min | [facility] | | | -[facility] | | | LABORATORY | | | [facility] | | | SERVICES, | | | | | | CORE | | + +---------+ + + + | SODIUM, | 135 (L) | 136 - 145 | [facility] | | | PLASMA | | mmol/L | LABORATORY | | | (LAB) | | | SERVICES, | | | | | | CORE | | + +---------+ + + + | POTASSIUM, | 3.8 | 3.4 - 5.0 | [facility] | | | PLASMA | | mmol/L | LABORATORY | | | (LAB) | | | SERVICES, | | | | | | CORE | | + +---------+ + + + | CHLORIDE, | 100 | 97 - 108 mmol/L | [facility] | | | PLASMA | | | LABORATORY | | | (LAB) | | | SERVICES, | | | | | | CORE | | + +---------+ + + + | TOTAL CO2, | 27 | 21 - 32 mmol/L | [facility] | | | PLASMA | | | LABORATORY | | | (LAB) | | | SERVICES, | | | | | | CORE | | + +---------+ + + + | CALCIUM, | 8.6 | 8.6 - 10.2 | [facility] | | | PLASMA | | mg/dL | LABORATORY | | | (LAB) | | | SERVICES, | | | | | | CORE | | + +---------+ + + + | ANION GAP | 8 | 4 - 11 mmol/L | [facility] | | | | | | LABORATORY | | | | | | SERVICES, | | | | | | CORE | | + +---------+ + + + | POTASSIUM | No Hemo | | [facility] | | | CMNT | | | LABORATORY | | | | | | SERVICES, | | | | | | CORE | | + +---------+ + + + + + | Specimen | + + | Blood - Blood | | (substance) | + + + + + | Narrative | Performed At | + + + | Adult glucose reference range change effective 7-12-17. GFR is | [facility] | | estimated using the MDRD equation recommended by the National Kidney | LABORATORY | | Disease Education Program. Estimated GFR Interpretive Information: | SERVICES, CORE | | <60 mL/min/1.73 sq m Chronic Kidney Disease | | | <15 mL/min/1.73 sq m Kidney Failure Estimated | | | GFR greater that 60 mL/min/1.73 sq m is of limited clinical value. | | | The MDRD equation is not valid in the following situations: - | | | Patients under 18 years of age - Severe malnutrition or obesity - | | | Vegetarian diet - Rapidly changing kidney function | | + + + + + + + + | Performing | Address | City/State/Zipcode | Phone Number | | Organization | | | | + + + + + | [facility] | [address] | [place] [address] | | | SERVICES, CORE | [address] | | | + + + + + CBC (HEMOGRAM) ONLY (01/18/2018 5:06 AM PDT) + + + + + + | Component | Value | Ref Range | Performed | Pathologist | | | | | At | Signature | + + + + + + | WHITE CELL | 15.06 (H) | 3.50 - 10.80 | [facility] | | | COUNT | | K/cu mm | LABORATORY | | | | | | SERVICES, | | | | | | CORE | | + + + + + + | RED CELL | 3.84 (L) | 4.50 - 6.00 | [facility] | | | COUNT | | M/cu mm | LABORATORY | | | | | | SERVICES, | | | | | | CORE | | + + + + + + | HEMOGLOBIN | 12.6 (L) | 13.5 - 17.5 | [facility] | | | | | g/dL | LABORATORY | | | | | | SERVICES, | | | | | | CORE | | + + + + + + | HEMATOCRIT | 36.6 (L) | 41.0 - 53.0 % | [facility] | | | | | | LABORATORY | | | | | | SERVICES, | | | | | | CORE | | + + + + + + | MCV | 95.3 | 80.0 - 96.0 fL | [facility] | | | | | | LABORATORY | | | | | | SERVICES, | | | | | | CORE | | + + + + + + | MCHC | 34.4 | 33.0 - 35.5 | [facility] | | | | | g/dL | LABORATORY | | | | | | SERVICES, | | | | | | CORE | | + + + + + + | RDW SD | 43.5 | 35.1 - 46.3 fL | [facility] | | | | | | LABORATORY | | | | | | SERVICES, | | | | | | CORE | | + + + + + + | PLATELET | 175 | 150 - 400 K/cu | [facility] | | | COUNT | | mm | LABORATORY | | | | | | SERVICES, | | | | | | CORE | | + + + + + + | MPV | 9.7 | 9.7 - 12.3 fL | [facility] | | | | | | LABORATORY | | | | | | SERVICES, | | | | | | CORE | | + + + + + + | NRBC% | 0.0 | 0.0 - 0.3 % | [facility] | | | | | | LABORATORY | | | | | | SERVICES, | | | | | | CORE | | + + + + + + | NRBC# | 0.00 | 0.00 - 0.02 | [facility] | | | | | K/cu mm | LABORATORY | | | | | | SERVICES, | | | | | | CORE | | + + + + + + + + | Specimen | + + | Blood - Blood | | (substance) | + + + + + + + | Performing | Address | City/State/Zipcode | Phone Number | | Organization | | | | + + + + + | [facility] | [address] | [place] [address] | | | SERVICES, CORE | [address] | | | + + + + + PHOSPHORUS, PLASMA (01/18/2018 5:06 AM PDT) + +---------+ + + + | Component | Value | Ref Range | Performed | Pathologist | | | | | At | Signature | + +---------+ + + + | PHOSPHORUS, | 2.3 (L) | 2.4 - 4.7 mg/dL | [facility] | | | PLASMA | | | LABORATORY | | | (LAB) | | | SERVICES, | | | | | | CORE | | + +---------+ + + + + + | Specimen | + + | Blood - Blood | | (substance) | + + + + + + + | Performing | Address | City/State/Zipcode | Phone Number | | Organization | | | | + + + + + | [facility] | [address] | [place] [address] | | | SERVICES, CORE | [address] | | | + + + + + MAGNESIUM, PLASMA (01/18/2018 5:06 AM PDT) + +-------+ + + + | Component | Value | Ref Range | Performed | Pathologist | | | | | At | Signature | + +-------+ + + + | MAGNESIUM,P | 1.8 | 1.6 - 2.6 mg/dL | [facility] | | | LASMA | | | LABORATORY | | | | | | SERVICES, | | | | | | CORE | | + +-------+ + + + + + | Specimen | + + | Blood - Blood | | (substance) | + + + + + | Narrative | Performed At | + + + | Reference range change effective 05/31/17. | [facility] | | | LABORATORY | | | SERVICES, CORE | + + + + + + + + | Performing | Address | City/State/Zipcode | Phone Number | | Organization | | | | + + + + + | [facility] | [address] | [place] [address] | | | SERVICES, CORE | [address] | | | + + + + + BASIC METABOLIC SET (NA, K, CL, TCO2, BUN, CR, GLU, CA) (01/18/2018 5:06 AM PDT) + +---------+ + + + | Component | Value | Ref Range | Performed | Pathologist | | | | | At | Signature | + +---------+ + + + | GLUCOSE, | 126 (H) | 70 - 99 mg/dL | [facility] | | | PLASMA | | | LABORATORY | | | (LAB) | | | SERVICES, | | | | | | CORE | | + +---------+ + + + | BUN, PLASMA | 8 | 6 - 20 mg/dL | [facility] | | | (LAB) | | | LABORATORY | | | | | | SERVICES, | | | | | | CORE | | + +---------+ + + + | CREATININE | 0.73 | 0.70 - 1.30 | [facility] | | | PLASMA | | mg/dL | LABORATORY | | | (LAB) | | | SERVICES, | | | | | | CORE | | + +---------+ + + + | EGFR | >60 | >60 mL/min | [facility] | | | - | | | LABORATORY | | | [facility] | | | SERVICES, | | | | | | CORE | | + +---------+ + + + | EGFR NON | >60 | >60 mL/min | [facility] | | | -[facility] | | | LABORATORY | | | [facility] | | | SERVICES, | | | | | | CORE | | + +---------+ + + + | SODIUM, | 136 | 136 - 145 | [facility] | | | PLASMA | | mmol/L | LABORATORY | | | (LAB) | | | SERVICES, | | | | | | CORE | | + +---------+ + + + | POTASSIUM, | 3.5 | 3.4 - 5.0 | [facility] | | | PLASMA | | mmol/L | LABORATORY | | | (LAB) | | | SERVICES, | | | | | | CORE | | + +---------+ + + + | CHLORIDE, | 102 | 97 - 108 mmol/L | [facility] | | | PLASMA | | | LABORATORY | | | (LAB) | | | SERVICES, | | | | | | CORE | | + +---------+ + + + | TOTAL CO2, | 29 | 21 - 32 mmol/L | [facility] | | | PLASMA | | | LABORATORY | | | (LAB) | | | SERVICES, | | | | | | CORE | | + +---------+ + + + | CALCIUM, | 8.3 (L) | 8.6 - 10.2 | [facility] | | | PLASMA | | mg/dL | LABORATORY | | | (LAB) | | | SERVICES, | | | | | | CORE | | + +---------+ + + + | ANION GAP | 5 | 4 - 11 mmol/L | [facility] | | | | | | LABORATORY | | | | | | SERVICES, | | | | | | CORE | | + +---------+ + + + | POTASSIUM | No Hemo | | [facility] | | | CMNT | | | LABORATORY | | | | | | SERVICES, | | | | | | CORE | | + +---------+ + + + + + | Specimen | + + | Blood - Blood | | (substance) | + + + + + | Narrative | Performed At | + + + | Adult glucose reference range change effective 7-12-17. GFR is | [facility] | | estimated using the MDRD equation recommended by the National Kidney | LABORATORY | | Disease Education Program. Estimated GFR Interpretive Information: | SERVICES, CORE | | <60 mL/min/1.73 sq m Chronic Kidney Disease | | | <15 mL/min/1.73 sq m Kidney Failure Estimated | | | GFR greater that 60 mL/min/1.73 sq m is of limited clinical value. | | | The MDRD equation is not valid in the following situations: - | | | Patients under 18 years of age - Severe malnutrition or obesity - | | | Vegetarian diet - Rapidly changing kidney function | | + + + + + + + + | Performing | Address | City/State/Zipcode | Phone Number | | Organization | | | | + + + + + | [facility] | [address] | [place] [address] | | | SERVICES, CORE | [address] | | | + + + + + CBC (HEMOGRAM) ONLY (01/17/2018 5:06 AM PDT) + + + + + + | Component | Value | Ref Range | Performed | Pathologist | | | | | At | Signature | + + + + + + | WHITE CELL | 22.20 (H) | 3.50 - 10.80 | [facility] | | | COUNT | | K/cu mm | LABORATORY | | | | | | SERVICES, | | | | | | CORE | | + + + + + + | RED CELL | 4.51 | 4.50 - 6.00 | [facility] | | | COUNT | | M/cu mm | LABORATORY | | | | | | SERVICES, | | | | | | CORE | | + + + + + + | HEMOGLOBIN | 14.8 | 13.5 - 17.5 | [facility] | | | | | g/dL | LABORATORY | | | | | | SERVICES, | | | | | | CORE | | + + + + + + | HEMATOCRIT | 43.5 | 41.0 - 53.0 % | [facility] | | | | | | LABORATORY | | | | | | SERVICES, | | | | | | CORE | | + + + + + + | MCV | 96.5 (H) | 80.0 - 96.0 fL | [facility] | | | | | | LABORATORY | | | | | | SERVICES, | | | | | | CORE | | + + + + + + | MCHC | 34.0 | 33.0 - 35.5 | [facility] | | | | | g/dL | LABORATORY | | | | | | SERVICES, | | | | | | CORE | | + + + + + + | RDW SD | 43.7 | 35.1 - 46.3 fL | [facility] | | | | | | LABORATORY | | | | | | SERVICES, | | | | | | CORE | | + + + + + + | PLATELET | 243 | 150 - 400 K/cu | [facility] | | | COUNT | | mm | LABORATORY | | | | | | SERVICES, | | | | | | CORE | | + + + + + + | MPV | 9.9 | 9.7 - 12.3 fL | [facility] | | | | | | LABORATORY | | | | | | SERVICES, | | | | | | CORE | | + + + + + + | NRBC% | 0.0 | 0.0 - 0.3 % | [facility] | | | | | | LABORATORY | | | | | | SERVICES, | | | | | | CORE | | + + + + + + | NRBC# | 0.00 | 0.00 - 0.02 | [facility] | | | | | K/cu mm | LABORATORY | | | | | | SERVICES, | | | | | | CORE | | + + + + + + + + | Specimen | + + | Blood - Blood | | (substance) | + + + + + + + | Performing | Address | City/State/Zipcode | Phone Number | | Organization | | | | + + + + + | [facility] | [address] | [place] [address] | | | SERVICES, CORE | [address] | | | + + + + + PHOSPHORUS, PLASMA (01/17/2018 5:06 AM PDT) + +-------+ + + + | Component | Value | Ref Range | Performed | Pathologist | | | | | At | Signature | + +-------+ + + + | PHOSPHORUS, | 3.6 | 2.4 - 4.7 mg/dL | [facility] | | | PLASMA | | | LABORATORY | | | (LAB) | | | SERVICES, | | | | | | CORE | | + +-------+ + + + + + | Specimen | + + | Blood - Blood | | (substance) | + + + + + + + | Performing | Address | City/State/Zipcode | Phone Number | | Organization | | | | + + + + + | [facility] | [address] | [place] [address] | | | SERVICES, CORE | [address] | | | + + + + + MAGNESIUM, PLASMA (01/17/2018 5:06 AM PDT) + +-------+ + + + | Component | Value | Ref Range | Performed | Pathologist | | | | | At | Signature | + +-------+ + + + | MAGNESIUM,P | 2.0 | 1.6 - 2.6 mg/dL | [facility] | | | LASMA | | | LABORATORY | | | | | | SERVICES, | | | | | | CORE | | + +-------+ + + + + + | Specimen | + + | Blood - Blood | | (substance) | + + + + + | Narrative | Performed At | + + + | Reference range change effective 05/31/17. | [facility] | | | LABORATORY | | | [facility] | + + + + + + + + | Performing | Address | City/State/Zipcode | Phone Number | | Organization | | | | + + + + + | [facility] | [address] | [place] [address] | | | [address] | [address] | | | + + + + + BASIC METABOLIC SET (NA, K, CL, TCO2, BUN, CR, GLU, CA) (01/17/2018 5:06 AM PDT) + +---------+ + + + | Component | Value | Ref Range | Performed | Pathologist | | | | | At | Signature | + +---------+ + + + | GLUCOSE, | 129 (H) | 70 - 99 mg/dL | [facility] | | | PLASMA | | | LABORATORY | | | (LAB) | | | SERVICES, | | | | | | CORE | | + +---------+ + + + | BUN, PLASMA | 7 | 6 - 20 mg/dL | [facility] | | | (LAB) | | | LABORATORY | | | | | | SERVICES, | | | | | | CORE | | + +---------+ + + + | CREATININE | 0.75 | 0.70 - 1.30 | [facility] | | | PLASMA | | mg/dL | LABORATORY | | | (LAB) | | | SERVICES, | | | | | | CORE | | + +---------+ + + + | EGFR | >60 | >60 mL/min | [facility] | | | - | | | LABORATORY | | | [facility] | | | SERVICES, | | | | | | CORE | | + +---------+ + + + | EGFR NON | >60 | >60 mL/min | [facility] | | | -[facility] | | | LABORATORY | | | [facility] | | | SERVICES, | | | | | | CORE | | + +---------+ + + + | SODIUM, | 137 | 136 - 145 | [facility] | | | PLASMA | | mmol/L | LABORATORY | | | (LAB) | | | SERVICES, | | | | | | CORE | | + +---------+ + + + | POTASSIUM, | 3.7 | 3.4 - 5.0 | [facility] | | | PLASMA | | mmol/L | LABORATORY | | | (LAB) | | | SERVICES, | | | | | | CORE | | + +---------+ + + + | CHLORIDE, | 101 | 97 - 108 mmol/L | [facility] | | | PLASMA | | | LABORATORY | | | (LAB) | | | SERVICES, | | | | | | CORE | | + +---------+ + + + | TOTAL CO2, | 28 | 21 - 32 mmol/L | [facility] | | | PLASMA | | | LABORATORY | | | (LAB) | | | SERVICES, | | | | | | CORE | | + +---------+ + + + | CALCIUM, | 8.8 | 8.6 - 10.2 | [facility] | | | PLASMA | | mg/dL | LABORATORY | | | (LAB) | | | SERVICES, | | | | | | CORE | | + +---------+ + + + | ANION GAP | 8 | 4 - 11 mmol/L | [facility] | | | | | | LABORATORY | | | | | | SERVICES, | | | | | | CORE | | + +---------+ + + + | POTASSIUM | No Hemo | | [facility] | | | CMNT | | | LABORATORY | | | | | | SERVICES, | | | | | | CORE | | + +---------+ + + + + + | Specimen | + + | Blood - Blood | | (substance) | + + + + + | Narrative | Performed At | + + + | Adult glucose reference range change effective 7-12-17. GFR is | [facility] | | estimated using the MDRD equation recommended by the National Kidney | LABORATORY | | Disease Education Program. Estimated GFR Interpretive Information: | SERVICES, CORE | | <60 mL/min/1.73 sq m Chronic Kidney Disease | | | <15 mL/min/1.73 sq m Kidney Failure Estimated | | | GFR greater that 60 mL/min/1.73 sq m is of limited clinical value. | | | The MDRD equation is not valid in the following situations: - | | | Patients under 18 years of age - Severe malnutrition or obesity - | | | Vegetarian diet - Rapidly changing kidney function | | + + + + + + + + | Performing | Address | City/State/Zipcode | Phone Number | | Organization | | | | + + + + + | [facility] | [address] | [place] [address] | | | SERVICES, CORE | [address] | | | + + + + + TRACHEOTOMY (01/16/2018 10:42 PM PDT) + + + | Narrative | Performed At | + + + | Pasquale Moscoso MD 01/16/2018 10:58 PM DATE: 01/16/2018 | | | SURGEON: Pasquale Moscoso MD [employer] SURGEON: Herman Mueller, | | | PREOPERATIVE DIAGNOSES: 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 Mahmood | | | is a 47 y.o. male with a history of hoarseness, tobacco and alcohol | | | abuse. Mr. Mahmood has been found to have a right vocal fold | | | squamous cell carcinoma by biopsy confirmed here at [facility]. We have | | | discussed the options, including organ preservation surgery, total | | | laryngectomy and chemoradiation therapy, at length. Mr. Mahmood has | | | decided to pursue organ preservation surgery. We discussed the | | | procedure with Mr. Mahmood at length prior to the procedure, including | | | the risks and benefits of the procedure ans well as the risk of | | | converting to total laryngectomy. We also discussed alternative | | | including non-surgical management. After answering all questions | | | to the best of my ability, I obtained informed consent from Mr. Jojo Mahmood prior to proceeding. ANESTHESIA: general endotracheal tube | | | anesthesia ESTIMATED BLOOD LOSS: Less than 200 cc IV FLUID: | | | Crystalloid ANTIBIOTICS: Unasyn SPECIMENS: 1) | | | right modified radical neck dissection, levels IIa-IV 2) larynx 3) | | | right interarytenoid margin 4) right subglottic margin 5) right | | | false vocal fold margin 6) right epiglottis margin 7) right | | | paraglottic space (deep) margin DRAINS/PROSTHETICS/INJECTABLES: | | | 2 x 10 Slade-Blas type drain(s) COMPLICATIONS: None | | | FINDINGS: There was a deeply invasive lesion of the right true | | | vocal fold filling the right paraglottic space. There was no | | | cricoarytenoid joint fixation. The subglottic airway was minimally | | | involved. The tumor remained limited to the right vocal fold and | | | did not seem to extend into the supraglottis. All margins were | | | negative for malignancy or high-grade dysplasia. No worrisome | | | lymph nodes were palpated during resection. The stomach was | | | unremarkable. Procedure: Mr. Mahmood was brought to the operating | | | room and placed in supine position. Following induction of general | | | anesthesia and endotracheal intubation, Mr. Mahmood was turned 180 | | | degrees. He was then prepped and draped in clean fashion for direct | | | microlaryngoscopy. We performed direct microlaryngoscopy using the | | | Pure Klimaschutz laryngoscope and operating telescopes. The teeth were | | | protected. The larynx was carefully inspected. The findings are | | | noted above and Mr. Mahmood was deemed to be a candidate for | | | supracricoid partial laryngectomy with cricohyoidoepiglottopexy | | | reconstruction. At this point, the laryngoscope was removed and | | | Mr. Mahmood was positioned for gastrostomy tube placement. The Olympus | | | gastroscope was passed in the patient's oral cavity, oropharynx, | | | and into the patient's stomach. The stomach was carefully inflated | | | and visualized. The pylorus was noted to be free of lesions and | | | masses and there were no lesions or masses noted throughout the | | | stomach. The anterior wall was palpated with the stomach inflated. A | | | suitable position to approximate the mid clavicular line, | | | approximately 2 fingerbreadths beneath the costal margin was | | | identified. The skin was prepped and draped in sterile fashion. | | | Incision was made with a #11 blade. The needle was placed | | | percutaneously into stomach under direct guidance. A guidewire was | | | passed and this was grasped with a snare through the gastroscope. | | | This was brought out the mouth. The gastrostomy tube was then glided | | | onto the wire and brought transorally through the esophagus and | | | into the position of the stomach. The gastroscope was replaced. The | | | tube was affixed at approximately 3 cm. It had excellent rotation | | | and did not appear to buckle the skin. The stomach was suctioned | | | free of blood and secretions and the tube was connected to a Jones | | | bag to straight drain. At this point, the patient was carefully | | | positioned for resection. He was positioned on a shoulder roll with | | | the neck gently extended. The neck was carefully palpated and the | | | thyroid notch, cricoid, hyoid bone, and sternal notch were | | | identified. An incision was marked out in an U-shaped apron flap to | | | place a tracheotomy site within the line of the incision | | | approximately 1 fingerbreadth beneath his cricoid cartilage. Once | | | completed, the neck was injected with 1% lidocaine with 1:100,000 | | | epinephrine. A total of 10 cc were used. The neck was then prepped | | | and draped in sterile fashion. An apron skin incision was then | | | made using a #15 blade and subplatysmal flaps were elevated 2 cm | | | above the hyoid bone superiorly and to the sternal notch inferiorly. | | | We first started by performing right modified radical neck | | | dissection. The sternocleidomastoid muscle was identified and | | | dissection was undertaken along its medial edge. This was taken | | | superiorly to the mastoid process. The dissection was taken | | | inferiorly to the clavicular head. Dissection was undertaken at the | | | anterior border of the sternocleidomastoid superiorly down to the | | | level of the posterior belly of the digastric. This was carefully | | | identified and gently dissected anteriorly paying careful attention | | | to avoid dissection superiorly near the marginal mandibular branch | | | of the facial nerve. The posterior facial vein was identified and | | | ligated with 3-0 silk suture. This was ligated superiorly to help | | | protect the marginal mandibular branch of the facial nerve. | | | Dissection was then undertaken along the medial aspect of the | | | sternocleidomastoid muscle. The 11th cranial nerve was identified. | | | This was traced superiorly to the level of the posterior belly of | | | the digastric muscle. The jugular vein was identified at this level | | | as well. Level IIb was not removed with the specimen. We then | | | transitioned just medial to the jugular vein and were able to | | | identify the hypoglossal nerve. This was carefully dissected free | | | and small overlying veins were divided and ligated with 3-0 silk | | | suture in this region. Once completed, we turned our attention | | | inferiorly. The omohyoid muscle was divided using electrocautery. | | | Dissection was carried out inferiorly to the level of the clavicular | | | head. The jugular vein was identified in this region as well. At | | | this point, the specimen was elevated using Marrufo clamps and | | | dissection was undertaken posteriorly toward the cervical rootlets. | | | The cervical rootlets were identified and used to tract anteriorly. | | | The cervical rootlets were not divided and level V was not entered. | | | Dissection was carried out to the level of the spinal accessory | | | nerve.. Once completed, we continued our dissection up on to the | | | internal jugular vein. The vagus nerve was identified and preserved. | | | In addition, the phrenic nerve was identified and preserved. | | | Dissection was carried out anteriorly across the internal jugular | | | vein. The specimen was dissected free of the common facial vein | | | which was preserved. The specimen was then transected at the level of | | | the strap muscles and sent to pathology for permanent sectioning. | | | At this point, we turned our attention to performing the partial | | | laryngectomy. We began by incising the midline vertically from the | | | level of the hyoid to the level of sternal notch. The strap muscles | | | were in the midline and reflected laterally. The thyroid | | | isthmus was identified and reflected laterally. Dissection was | | | undertaken along the trachea and gentle finger dissection was taken | | | retrosternally to the level of the raymundo. The innominate artery was | | | identified and carefully avoided. At this point, we turned our | | | attention to more superior aspects. We divided the sternohyoid | | | muscles at the superior border of the thyroid cartilage. We then | | | divided the thyrohyoid muscles at the upper border of the thyroid | | | cartilage. The sternothyroid muscles were also divided at their | | | insertion into the thyroid cartilage and the cricothyroid space was | | | exposed bilaterally. The superior lobes of the thyroid were | | | reflected laterally. We then turned our attention superiorly and | | | were able to identify the superior laryngeal nerves on either side. | | | These were carefully preserved. With our exposure adequate from the | | | muscle standpoint, we then performed division of the inferior | | | constrictor muscles bilaterally. This was done along the posterior | | | border of the thyroid cartilage and up onto the superior cornu of | | | the thyroid cartilage and inferior cornu of the thyroid cartilage. | | | Careful subperichondrial dissection was undertaken on both sides to | | | free up the piriform sinuses. Only one-third of the thyroid ala was | | | elevated on the tumor-bearing side. Once completed, we turned our | | | attention to the inferior thyroid cornu. This was done on the right | | | side first. The inferior thyroid cornu was carefully dissected free | | | of constrictor muscle and a very judicious dissection in this area | | | allowed subperichondrial dissection and division of the cricothyroid | | | joint. This was carried out in a posterior to anterior direction | | | paying careful attention to avoid injury to the recurrent laryngeal | | | nerve beneath this. Once performed on the right, we performed this | | | on the left as well. Once completed, we had the entire thyroid | | | cartilage isolated and we turned to cricothyrotomy. This was | | | performed in the midline and a 6.5 armored tube was placed into the | | | patient's airway. Once completed, we turned our attention back to | | | the thyroid cartilage and set out about resecting the specimen. | | | Just prior to this, we did put in four 4-0 Prolene sutures into the | | | inferior constrictor muscle and mucosa of the piriform sinuses on | | | both sides. These were tagged and left for closure at the conclusion | | | of the procedure. The thyrohyoid muscle was carefully elevated | | | off the superior border of the thyroid cartilage. We then used a | | | combination of curved Celis scissors and curved Metzenbaum scissors | | | to incise the petiole of the epiglottis. The larynx was entered just | | | above the false vocal folds in the midline. We turned our attention | | | to resection along the left side first. Division of the false vocal | | | fold and true vocal fold was performed just anterior to the vocal | | | process. Careful attention was paid to avoid entry into the | | | cricothyroid joint to avoid ankylosis. We centered our dissection | | | inferiorly to the cricothyrotomy. At this point, the thyroid ala was | | | opened and fractured in the midline to allow complete visualization | | | of the tumor. With the tumor entirely exposed and hemostasis | | | achieved, we were able to make careful mucosal cuts, proximally 4 to | | | 5 mm away from the tumor using a #15 blade. The tumor was noted to | | | involve the paraglottic space and vocal process. It did not | | | extend into the supraglottis. The margin was deemed adequate. | | | Circumferential resection was undertaken and the right arytenoid | | | cartilage was resected with the specimen. At the conclusion of the | | | resection, we carefully looked at the specimen and there did not | | | appear to be any tumor violation. Once completed, frozen section | | | specimens were sent. These were negative with the first cuts. We | | | therefore elected to proceed with reconstruction and partial | | | laryngectomy with the specimen completely removed. Reconstruction | | | was undertaken by passing of 4-0 Vicryl suture in the anterior | | | portion of the arytenoid(s) which was carefully preserved just above | | | the vocal process. This was passed into the cricoid cartilage | | | mucosa of the conus elasticus to raise the cartilage anteriorly. | | | The posterior arytenoid mucosa was then folded over the top of the | | | exposed cricoid and arytenoid(s). This was done using 4-0 Vicryl | | | suture. Once completed, we prepared our impaction sutures. A #1 | | | Vicryl suture was passed around the cricoid, into the petiole of the | | | epiglottis, back out and around the hyoid bone in the midline. | | | Two additional #1 Vicryl sutures were passed in similar fashion 1 | | | cm apart on either side. Once completed, we elevated the tracheotomy | | | and elevated the trachea to the impaction site and chose a suitable | | | site for tracheotomy. The anterior portion of the 5th tracheal ring | | | was resected and the #8 DCT Shiley tracheotomy was placed. At this | | | point, the impaction was undertaken and the #1 Vicryl sutures were | | | sewn in place. The piriform mucosa retaining sutures within the | | | inferior constrictor muscles were then tied over across the midline. | | | Two #10 drains were placed laterally through stab incisions. One | | | was placed inferiorly into the anterior mediastinum. The other was | | | placed into the right neck dissection and superiorly towards the | | | mastoid tip. These were placed to bulb suction. The wound was | | | irrigated with several hundred cc of bactericidal saline solution. | | | The wound was then closed by reapproximating the muscles and fascia | | | in the midline using 3-0 Vicryl sutures in an interrupted fashion. | | | The platysma flaps were then replaced and a number of quilting | | | stitches were placed circumferentially around the tracheotomy to | | | attempt to exclude this. The thyroid isthmus had been reapproximated | | | in the midline as well with 3-0 Vicryl suture just prior to this. | | | The platysmal layers were then closed in an interrupted fashion with | | | 4-0 Vicryl suture. The skin was then closed with 5-0 running fast | | | gut suture in a running fashion. A Kerlix wrap was placed | | | circumferentially around the neck. Of note, I was present for | | | entirety of this procedure. Herman Mueller MD acted as my assistant speech language pathologist | | | during this case as no qualified resident was involved for any of | | | the procedure. DISPOSITION: Mr. Mahmood was returned to Anesthesia | | | for awakening and transferred to the PACU. He tolerated the | | | procedure extremely well. Pasquale Moscoso M.D. 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 Mahmood | | | is a 47 y.o. male with a history of hoarseness, tobacco and alcohol | | | abuse. Mr. Mahmood has been found to have a right vocal fold | | | squamous cell carcinoma by biopsy confirmed here at [facility]. We have | | | discussed the options, including organ preservation surgery, total | | | laryngectomy and chemoradiation therapy, at length. Mr. Mahmood has | | | decided to pursue organ preservation surgery. We discussed the | | | procedure with Mr. Mahmood at length prior to the procedure, including | | | the risks and benefits of the procedure ans well as the risk of | | | converting to total laryngectomy. We also discussed alternative | | | including non-surgical management. After answering all questions | | | to the best of my ability, I obtained informed consent from | | | [place] prior to proceeding. ANESTHESIA: general endotracheal tube | | | anesthesia ESTIMATED BLOOD LOSS: Less than 200 cc IV FLUID: | | | Crystalloid ANTIBIOTICS: Unasyn SPECIMENS: 1) | | | right modified radical neck dissection, levels IIa-IV 2) larynx 3) | | | right interarytenoid margin 4) right subglottic margin 5) right | | | false vocal fold margin 6) right epiglottis margin 7) right | | | paraglottic space (deep) margin DRAINS/PROSTHETICS/INJECTABLES: | | | 2 x 10 Slade-Blas type drain(s) COMPLICATIONS: None | | | FINDINGS: There was a deeply invasive lesion of the right true | | | vocal fold filling the right paraglottic space. There was no | | | cricoarytenoid joint fixation. The subglottic airway was minimally | | | involved. The tumor remained limited to the right vocal fold and | | | did not seem to extend into the supraglottis. All margins were | | | negative for malignancy or high-grade dysplasia. No worrisome | | | lymph nodes were palpated during resection. The stomach was | | | unremarkable. Procedure: Mr. Mahmood was brought to the operating | | | room and placed in supine position. Following induction of general | | | anesthesia and endotracheal intubation, Mr. Mahmood was turned 180 | | | degrees. He was then prepped and draped in clean fashion for direct | | | microlaryngoscopy. We performed direct microlaryngoscopy using the | | | Innainger laryngoscope and operating telescopes. The teeth were | | | protected. The larynx was carefully inspected. The findings are | | | noted above and Mr. Mahmood was deemed to be a candidate for | | | supracricoid partial laryngectomy with cricohyoidoepiglottopexy | | | reconstruction. At this point, the laryngoscope was removed and | | | Mr. Mahmood was positioned for gastrostomy tube placement. The Olympus | | | gastroscope was passed in the patient's oral cavity, oropharynx, | | | and into the patient's stomach. The stomach was carefully inflated | | | and visualized. The pylorus was noted to be free of lesions and | | | masses and there were no lesions or masses noted throughout the | | | stomach. The anterior wall was palpated with the stomach inflated. A | | | suitable position to approximate the mid clavicular line, | | | approximately 2 fingerbreadths beneath the costal margin was | | | identified. The skin was prepped and draped in sterile fashion. | | | Incision was made with a #11 blade. The needle was placed | | | percutaneously into stomach under direct guidance. A guidewire was | | | passed and this was grasped with a snare through the gastroscope. | | | This was brought out the mouth. The gastrostomy tube was then glided | | | onto the wire and brought transorally through the esophagus and | | | into the position of the stomach. The gastroscope was replaced. The | | | tube was affixed at approximately 3 cm. It had excellent rotation | | | and did not appear to buckle the skin. The stomach was suctioned | | | free of blood and secretions and the tube was connected to a Jones | | | bag to straight drain. At this point, the patient was carefully | | | positioned for resection. He was positioned on a shoulder roll with | | | the neck gently extended. The neck was carefully palpated and the | | | thyroid notch, cricoid, hyoid bone, and sternal notch were | | | identified. An incision was marked out in an U-shaped apron flap to | | | place a tracheotomy site within the line of the incision | | | approximately 1 fingerbreadth beneath his cricoid cartilage. Once | | | completed, the neck was injected with 1% lidocaine with 1:100,000 | | | epinephrine. A total of 10 cc were used. The neck was then prepped | | | and draped in sterile fashion. An apron skin incision was then | | | made using a #15 blade and subplatysmal flaps were elevated 2 cm | | | above the hyoid bone superiorly and to the sternal notch inferiorly. | | | We first started by performing right modified radical neck | | | dissection. The sternocleidomastoid muscle was identified and | | | dissection was undertaken along its medial edge. This was taken | | | superiorly to the mastoid process. The dissection was taken | | | inferiorly to the clavicular head. Dissection was undertaken at the | | | anterior border of the sternocleidomastoid superiorly down to the | | | level of the posterior belly of the digastric. This was carefully | | | identified and gently dissected anteriorly paying careful attention | | | to avoid dissection superiorly near the marginal mandibular branch | | | of the facial nerve. The posterior facial vein was identified and | | | ligated with 3-0 silk suture. This was ligated superiorly to help | | | protect the marginal mandibular branch of the facial nerve. | | | Dissection was then undertaken along the medial aspect of the | | | sternocleidomastoid muscle. The 11th cranial nerve was identified. | | | This was traced superiorly to the level of the posterior belly of | | | the digastric muscle. The jugular vein was identified at this level | | | as well. Level IIb was not removed with the specimen. We then | | | transitioned just medial to the jugular vein and were able to | | | identify the hypoglossal nerve. This was carefully dissected free | | | and small overlying veins were divided and ligated with 3-0 silk | | | suture in this region. Once completed, we turned our attention | | | inferiorly. The omohyoid muscle was divided using electrocautery. | | | Dissection was carried out inferiorly to the level of the clavicular | | | head. The jugular vein was identified in this region as well. At | | | this point, the specimen was elevated using Marrufo clamps and | | | dissection was undertaken posteriorly toward the cervical rootlets. | | | The cervical rootlets were identified and used to tract anteriorly. | | | The cervical rootlets were not divided and level V was not entered. | | | Dissection was carried out to the level of the spinal accessory | | | nerve.. Once completed, we continued our dissection up on to the | | | internal jugular vein. The vagus nerve was identified and preserved. | | | In addition, the phrenic nerve was identified and preserved. | | | Dissection was carried out anteriorly across the internal jugular | | | vein. The specimen was dissected free of the common facial vein | | | which was preserved. The specimen was then transected at the level of | | | the strap muscles and sent to pathology for permanent sectioning. | | | At this point, we turned our attention to performing the partial | | | laryngectomy. We began by incising the midline vertically from the | | | level of the hyoid to the level of sternal notch. The strap muscles | | | were in the midline and reflected laterally. The thyroid | | | isthmus was identified and reflected laterally. Dissection was | | | undertaken along the trachea and gentle finger dissection was taken | | | retrosternally to the level of the raymundo. The innominate artery was | | | identified and carefully avoided. At this point, we turned our | | | attention to more superior aspects. We divided the sternohyoid | | | muscles at the superior border of the thyroid cartilage. We then | | | divided the thyrohyoid muscles at the upper border of the thyroid | | | cartilage. The sternothyroid muscles were also divided at their | | | insertion into the thyroid cartilage and the cricothyroid space was | | | exposed bilaterally. The superior lobes of the thyroid were | | | reflected laterally. We then turned our attention superiorly and | | | were able to identify the superior laryngeal nerves on either side. | | | These were carefully preserved. With our exposure adequate from the | | | muscle standpoint, we then performed division of the inferior | | | constrictor muscles bilaterally. This was done along the posterior | | | border of the thyroid cartilage and up onto the superior cornu of | | | the thyroid cartilage and inferior cornu of the thyroid cartilage. | | | Careful subperichondrial dissection was undertaken on both sides to | | | free up the piriform sinuses. Only one-third of the thyroid ala was | | | elevated on the tumor-bearing side. Once completed, we turned our | | | attention to the inferior thyroid cornu. This was done on the right | | | side first. The inferior thyroid cornu was carefully dissected free | | | of constrictor muscle and a very judicious dissection in this area | | | allowed subperichondrial dissection and division of the cricothyroid | | | joint. This was carried out in a posterior to anterior direction | | | paying careful attention to avoid injury to the recurrent laryngeal | | | nerve beneath this. Once performed on the right, we performed this | | | on the left as well. Once completed, we had the entire thyroid | | | cartilage isolated and we turned to cricothyrotomy. This was | | | performed in the midline and a 6.5 armored tube was placed into the | | | patient's airway. Once completed, we turned our attention back to | | | the thyroid cartilage and set out about resecting the specimen. | | | Just prior to this, we did put in four 4-0 Prolene sutures into the | | | inferior constrictor muscle and mucosa of the piriform sinuses on | | | both sides. These were tagged and left for closure at the conclusion | | | of the procedure. The thyrohyoid muscle was carefully elevated | | | off the superior border of the thyroid cartilage. We then used a | | | combination of curved Celis scissors and curved Metzenbaum scissors | | | to incise the petiole of the epiglottis. The larynx was entered just | | | above the false vocal folds in the midline. We turned our attention | | | to resection along the left side first. Division of the false vocal | | | fold and true vocal fold was performed just anterior to the vocal | | | process. Careful attention was paid to avoid entry into the | | | cricothyroid joint to avoid ankylosis. We centered our dissection | | | inferiorly to the cricothyrotomy. At this point, the thyroid ala was | | | opened and fractured in the midline to allow complete visualization | | | of the tumor. With the tumor entirely exposed and hemostasis | | | achieved, we were able to make careful mucosal cuts, proximally 4 to | | | 5 mm away from the tumor using a #15 blade. The tumor was noted to | | | involve the paraglottic space and vocal process. It did not | | | extend into the supraglottis. The margin was deemed adequate. | | | Circumferential resection was undertaken and the right arytenoid | | | cartilage was resected with the specimen. At the conclusion of the | | | resection, we carefully looked at the specimen and there did not | | | appear to be any tumor violation. Once completed, frozen section | | | specimens were sent. These were negative with the first cuts. We | | | therefore elected to proceed with reconstruction and partial | | | laryngectomy with the specimen completely removed. Reconstruction | | | was undertaken by passing of 4-0 Vicryl suture in the anterior | | | portion of the arytenoid(s) which was carefully preserved just above | | | the vocal process. This was passed into the cricoid cartilage | | | mucosa of the conus elasticus to raise the cartilage anteriorly. | | | The posterior arytenoid mucosa was then folded over the top of the | | | exposed cricoid and arytenoid(s). This was done using 4-0 Vicryl | | | suture. Once completed, we prepared our impaction sutures. A #1 | | | Vicryl suture was passed around the cricoid, into the petiole of the | | | epiglottis, back out and around the hyoid bone in the midline. | | | Two additional #1 Vicryl sutures were passed in similar fashion 1 | | | cm apart on either side. Once completed, we elevated the tracheotomy | | | and elevated the trachea to the impaction site and chose a suitable | | | site for tracheotomy. The anterior portion of the 5th tracheal ring | | | was resected and the #8 DCT Shiley tracheotomy was placed. At this | | | point, the impaction was undertaken and the #1 Vicryl sutures were | | | sewn in place. The piriform mucosa retaining sutures within the | | | inferior constrictor muscles were then tied over across the midline. | | | Two #10 drains were placed laterally through stab incisions. One | | | was placed inferiorly into the anterior mediastinum. The other was | | | placed into the right neck dissection and superiorly towards the | | | mastoid tip. These were placed to bulb suction. The wound was | | | irrigated with several hundred cc of bactericidal saline solution. | | | The wound was then closed by reapproximating the muscles and fascia | | | in the midline using 3-0 Vicryl sutures in an interrupted fashion. | | | The platysma flaps were then replaced and a number of quilting | | | stitches were placed circumferentially around the tracheotomy to | | | attempt to exclude this. The thyroid isthmus had been reapproximated | | | in the midline as well with 3-0 Vicryl suture just prior to this. | | | The platysmal layers were then closed in an interrupted fashion with | | | 4-0 Vicryl suture. The skin was then closed with 5-0 running fast | | | gut suture in a running fashion. A Kerlix wrap was placed | | | circumferentially around the neck. Of note, I was present for | | | entirety of this procedure. Herman Mueller MD acted as my assistant speech language pathologist | | | during this case as no qualified resident was involved for any of | | | the procedure. DISPOSITION: Mr. Mahmood was returned to Anesthesia | | | for awakening and transferred to the PACU. He tolerated the | | | procedure extremely well. Pasquale Moscoso M.D. 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 Mahmood | | | is a 47 y.o. male with a history of hoarseness, tobacco and alcohol | | | abuse. Mr. Mahmood has been found to have a right vocal fold | | | squamous cell carcinoma by biopsy confirmed here at [facility]. We have | | | discussed the options, including organ preservation surgery, total | | | laryngectomy and chemoradiation therapy, at length. Mr. Mahmood has | | | decided to pursue organ preservation surgery. We discussed the | | | procedure with Mr. Mahmood at length prior to the procedure, including | | | the risks and benefits of the procedure ans well as the risk of | | | converting to total laryngectomy. We also discussed alternative | | | including non-surgical management. After answering all questions | | | to the best of my ability, I obtained informed consent from Mr. Jojo Mahmood prior to proceeding. ANESTHESIA: general endotracheal tube | | | anesthesia ESTIMATED BLOOD LOSS: Less than 200 cc IV FLUID: | | | Crystalloid ANTIBIOTICS: Unasyn SPECIMENS: 1) | | | right modified radical neck dissection, levels IIa-IV 2) larynx 3) | | | right interarytenoid margin 4) right subglottic margin 5) right | | | false vocal fold margin 6) right epiglottis margin 7) right | | | paraglottic space (deep) margin DRAINS/PROSTHETICS/INJECTABLES: | | | 2 x 10 Slade-Blas type drain(s) COMPLICATIONS: None | | | FINDINGS: There was a deeply invasive lesion of the right true | | | vocal fold filling the right paraglottic space. There was no | | | cricoarytenoid joint fixation. The subglottic airway was minimally | | | involved. The tumor remained limited to the right vocal fold and | | | did not seem to extend into the supraglottis. All margins were | | | negative for malignancy or high-grade dysplasia. No worrisome | | | lymph nodes were palpated during resection. The stomach was | | | unremarkable. Procedure: Mr. Mahmood was brought to the operating | | | room and placed in supine position. Following induction of general | | | anesthesia and endotracheal intubation, Mr. Mahmood was turned 180 | | | degrees. He was then prepped and draped in clean fashion for direct | | | microlaryngoscopy. We performed direct microlaryngoscopy using the | | | Pure Klimaschutz laryngoscope and operating telescopes. The teeth were | | | protected. The larynx was carefully inspected. The findings are | | | noted above and Mr. Mahmood was deemed to be a candidate for | | | supracricoid partial laryngectomy with cricohyoidoepiglottopexy | | | reconstruction. At this point, the laryngoscope was removed and | | | Mr. Mahmood was positioned for gastrostomy tube placement. The Olympus | | | gastroscope was passed in the patient's oral cavity, oropharynx, | | | and into the patient's stomach. The stomach was carefully inflated | | | and visualized. The pylorus was noted to be free of lesions and | | | masses and there were no lesions or masses noted throughout the | | | stomach. The anterior wall was palpated with the stomach inflated. A | | | suitable position to approximate the mid clavicular line, | | | approximately 2 fingerbreadths beneath the costal margin was | | | identified. The skin was prepped and draped in sterile fashion. | | | Incision was made with a #11 blade. The needle was placed | | | percutaneously into stomach under direct guidance. A guidewire was | | | passed and this was grasped with a snare through the gastroscope. | | | This was brought out the mouth. The gastrostomy tube was then glided | | | onto the wire and brought transorally through the esophagus and | | | into the position of the stomach. The gastroscope was replaced. The | | | tube was affixed at approximately 3 cm. It had excellent rotation | | | and did not appear to buckle the skin. The stomach was suctioned | | | free of blood and secretions and the tube was connected to a Jones | | | bag to straight drain. At this point, the patient was carefully | | | positioned for resection. He was positioned on a shoulder roll with | | | the neck gently extended. The neck was carefully palpated and the | | | thyroid notch, cricoid, hyoid bone, and sternal notch were | | | identified. An incision was marked out in an U-shaped apron flap to | | | place a tracheotomy site within the line of the incision | | | approximately 1 fingerbreadth beneath his cricoid cartilage. Once | | | completed, the neck was injected with 1% lidocaine with 1:100,000 | | | epinephrine. A total of 10 cc were used. The neck was then prepped | | | and draped in sterile fashion. An apron skin incision was then | | | made using a #15 blade and subplatysmal flaps were elevated 2 cm | | | above the hyoid bone superiorly and to the sternal notch inferiorly. | | | We first started by performing right modified radical neck | | | dissection. The sternocleidomastoid muscle was identified and | | | dissection was undertaken along its medial edge. This was taken | | | superiorly to the mastoid process. The dissection was taken | | | inferiorly to the clavicular head. Dissection was undertaken at the | | | anterior border of the sternocleidomastoid superiorly down to the | | | level of the posterior belly of the digastric. This was carefully | | | identified and gently dissected anteriorly paying careful attention | | | to avoid dissection superiorly near the marginal mandibular branch | | | of the facial nerve. The posterior facial vein was identified and | | | ligated with 3-0 silk suture. This was ligated superiorly to help | | | protect the marginal mandibular branch of the facial nerve. | | | Dissection was then undertaken along the medial aspect of the | | | sternocleidomastoid muscle. The 11th cranial nerve was identified. | | | This was traced superiorly to the level of the posterior belly of | | | the digastric muscle. The jugular vein was identified at this level | | | as well. Level IIb was not removed with the specimen. We then | | | transitioned just medial to the jugular vein and were able to | | | identify the hypoglossal nerve. This was carefully dissected free | | | and small overlying veins were divided and ligated with 3-0 silk | | | suture in this region. Once completed, we turned our attention | | | inferiorly. The omohyoid muscle was divided using electrocautery. | | | Dissection was carried out inferiorly to the level of the clavicular | | | head. The jugular vein was identified in this region as well. At | | | this point, the specimen was elevated using Marrufo clamps and | | | dissection was undertaken posteriorly toward the cervical rootlets. | | | The cervical rootlets were identified and used to tract anteriorly. | | | The cervical rootlets were not divided and level V was not entered. | | | Dissection was carried out to the level of the spinal accessory | | | nerve.. Once completed, we continued our dissection up on to the | | | internal jugular vein. The vagus nerve was identified and preserved. | | | In addition, the phrenic nerve was identified and preserved. | | | Dissection was carried out anteriorly across the internal jugular | | | vein. The specimen was dissected free of the common facial vein | | | which was preserved. The specimen was then transected at the level of | | | the strap muscles and sent to pathology for permanent sectioning. | | | At this point, we turned our attention to performing the partial | | | laryngectomy. We began by incising the midline vertically from the | | | level of the hyoid to the level of sternal notch. The strap muscles | | | were in the midline and reflected laterally. The thyroid | | | isthmus was identified and reflected laterally. Dissection was | | | undertaken along the trachea and gentle finger dissection was taken | | | retrosternally to the level of the raymundo. The innominate artery was | | | identified and carefully avoided. At this point, we turned our | | | attention to more superior aspects. We divided the sternohyoid | | | muscles at the superior border of the thyroid cartilage. We then | | | divided the thyrohyoid muscles at the upper border of the thyroid | | | cartilage. The sternothyroid muscles were also divided at their | | | insertion into the thyroid cartilage and the cricothyroid space was | | | exposed bilaterally. The superior lobes of the thyroid were | | | reflected laterally. We then turned our attention superiorly and | | | were able to identify the superior laryngeal nerves on either side. | | | These were carefully preserved. With our exposure adequate from the | | | muscle standpoint, we then performed division of the inferior | | | constrictor muscles bilaterally. This was done along the posterior | | | border of the thyroid cartilage and up onto the superior cornu of | | | the thyroid cartilage and inferior cornu of the thyroid cartilage. | | | Careful subperichondrial dissection was undertaken on both sides to | | | free up the piriform sinuses. Only one-third of the thyroid ala was | | | elevated on the tumor-bearing side. Once completed, we turned our | | | attention to the inferior thyroid cornu. This was done on the right | | | side first. The inferior thyroid cornu was carefully dissected free | | | of constrictor muscle and a very judicious dissection in this area | | | allowed subperichondrial dissection and division of the cricothyroid | | | joint. This was carried out in a posterior to anterior direction | | | paying careful attention to avoid injury to the recurrent laryngeal | | | nerve beneath this. Once performed on the right, we performed this | | | on the left as well. Once completed, we had the entire thyroid | | | cartilage isolated and we turned to cricothyrotomy. This was | | | performed in the midline and a 6.5 armored tube was placed into the | | | patient's airway. Once completed, we turned our attention back to | | | the thyroid cartilage and set out about resecting the specimen. | | | Just prior to this, we did put in four 4-0 Prolene sutures into the | | | inferior constrictor muscle and mucosa of the piriform sinuses on | | | both sides. These were tagged and left for closure at the conclusion | | | of the procedure. The thyrohyoid muscle was carefully elevated | | | off the superior border of the thyroid cartilage. We then used a | | | combination of curved Celis scissors and curved Metzenbaum scissors | | | to incise the petiole of the epiglottis. The larynx was entered just | | | above the false vocal folds in the midline. We turned our attention | | | to resection along the left side first. Division of the false vocal | | | fold and true vocal fold was performed just anterior to the vocal | | | process. Careful attention was paid to avoid entry into the | | | cricothyroid joint to avoid ankylosis. We centered our dissection | | | inferiorly to the cricothyrotomy. At this point, the thyroid ala was | | | opened and fractured in the midline to allow complete visualization | | | of the tumor. With the tumor entirely exposed and hemostasis | | | achieved, we were able to make careful mucosal cuts, proximally 4 to | | | 5 mm away from the tumor using a #15 blade. The tumor was noted to | | | involve the paraglottic space and vocal process. It did not | | | extend into the supraglottis. The margin was deemed adequate. | | | Circumferential resection was undertaken and the right arytenoid | | | cartilage was resected with the specimen. At the conclusion of the | | | resection, we carefully looked at the specimen and there did not | | | appear to be any tumor violation. Once completed, frozen section | | | specimens were sent. These were negative with the first cuts. We | | | therefore elected to proceed with reconstruction and partial | | | laryngectomy with the specimen completely removed. Reconstruction | | | was undertaken by passing of 4-0 Vicryl suture in the anterior | | | portion of the arytenoid(s) which was carefully preserved just above | | | the vocal process. This was passed into the cricoid cartilage | | | mucosa of the conus elasticus to raise the cartilage anteriorly. | | | The posterior arytenoid mucosa was then folded over the top of the | | | exposed cricoid and arytenoid(s). This was done using 4-0 Vicryl | | | suture. Once completed, we prepared our impaction sutures. A #1 | | | Vicryl suture was passed around the cricoid, into the petiole of the | | | epiglottis, back out and around the hyoid bone in the midline. | | | Two additional #1 Vicryl sutures were passed in similar fashion 1 | | | cm apart on either side. Once completed, we elevated the tracheotomy | | | and elevated the trachea to the impaction site and chose a suitable | | | site for tracheotomy. The anterior portion of the 5th tracheal ring | | | was resected and the #8 DCT Shiley tracheotomy was placed. At this | | | point, the impaction was undertaken and the #1 Vicryl sutures were | | | sewn in place. The piriform mucosa retaining sutures within the | | | inferior constrictor muscles were then tied over across the midline. | | | Two #10 drains were placed laterally through stab incisions. One | | | was placed inferiorly into the anterior mediastinum. The other was | | | placed into the right neck dissection and superiorly towards the | | | mastoid tip. These were placed to bulb suction. The wound was | | | irrigated with several hundred cc of bactericidal saline solution. | | | The wound was then closed by reapproximating the muscles and fascia | | | in the midline using 3-0 Vicryl sutures in an interrupted fashion. | | | The platysma flaps were then replaced and a number of quilting | | | stitches were placed circumferentially around the tracheotomy to | | | attempt to exclude this. The thyroid isthmus had been reapproximated | | | in the midline as well with 3-0 Vicryl suture just prior to this. | | | The platysmal layers were then closed in an interrupted fashion with | | | 4-0 Vicryl suture. The skin was then closed with 5-0 running fast | | | gut suture in a running fashion. A Kerlix wrap was placed | | | circumferentially around the neck. Of note, I was present for | | | entirety of this procedure. Herman Mueller MD acted as my assistant speech language pathologist | | | during this case as no qualified resident was involved for any of | | | the procedure. DISPOSITION: Mr. Mahmood was returned to Anesthesia | | | for awakening and transferred to the PACU. He tolerated the | | | procedure extremely well. Pasquale Moscoso M.D. 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 Mahmood | | | is a 47 y.o. male with a history of hoarseness, tobacco and alcohol | | | abuse. Mr. Mahmood has been found to have a right vocal fold | | | squamous cell carcinoma by biopsy confirmed here at [facility]. We have | | | discussed the options, including organ preservation surgery, total | | | laryngectomy and chemoradiation therapy, at length. Mr. Mahmood has | | | decided to pursue organ preservation surgery. We discussed the | | | procedure with Mr. Mahmood at length prior to the procedure, including | | | the risks and benefits of the procedure ans well as the risk of | | | converting to total laryngectomy. We also discussed alternative | | | including non-surgical management. After answering all questions | | | to the best of my ability, I obtained informed consent from | | | [place] prior to proceeding. ANESTHESIA: general endotracheal tube | | | anesthesia ESTIMATED BLOOD LOSS: Less than 200 cc IV FLUID: | | | Crystalloid ANTIBIOTICS: Unasyn SPECIMENS: 1) | | | right modified radical neck dissection, levels IIa-IV 2) larynx 3) | | | right interarytenoid margin 4) right subglottic margin 5) right | | | false vocal fold margin 6) right epiglottis margin 7) right | | | paraglottic space (deep) margin DRAINS/PROSTHETICS/INJECTABLES: | | | 2 x 10 Slade-Blas type drain(s) COMPLICATIONS: None | | | FINDINGS: There was a deeply invasive lesion of the right true | | | vocal fold filling the right paraglottic space. There was no | | | cricoarytenoid joint fixation. The subglottic airway was minimally | | | involved. The tumor remained limited to the right vocal fold and | | | did not seem to extend into the supraglottis. All margins were | | | negative for malignancy or high-grade dysplasia. No worrisome | | | lymph nodes were palpated during resection. The stomach was | | | unremarkable. Procedure: Mr. Mahmood was brought to the operating | | | room and placed in supine position. Following induction of general | | | anesthesia and endotracheal intubation, Mr. Mahmood was turned 180 | | | degrees. He was then prepped and draped in clean fashion for direct | | | microlaryngoscopy. We performed direct microlaryngoscopy using the | | | Holinger laryngoscope and operating telescopes. The teeth were | | | protected. The larynx was carefully inspected. The findings are | | | noted above and Mr. Mahmood was deemed to be a candidate for | | | supracricoid partial laryngectomy with cricohyoidoepiglottopexy | | | reconstruction. At this point, the laryngoscope was removed and | | | Mr. Mahmood was positioned for gastrostomy tube placement. The Olympus | | | gastroscope was passed in the patient's oral cavity, oropharynx, | | | and into the patient's stomach. The stomach was carefully inflated | | | and visualized. The pylorus was noted to be free of lesions and | | | masses and there were no lesions or masses noted throughout the | | | stomach. The anterior wall was palpated with the stomach inflated. A | | | suitable position to approximate the mid clavicular line, | | | approximately 2 fingerbreadths beneath the costal margin was | | | identified. The skin was prepped and draped in sterile fashion. | | | Incision was made with a #11 blade. The needle was placed | | | percutaneously into stomach under direct guidance. A guidewire was | | | passed and this was grasped with a snare through the gastroscope. | | | This was brought out the mouth. The gastrostomy tube was then glided | | | onto the wire and brought transorally through the esophagus and | | | into the position of the stomach. The gastroscope was replaced. The | | | tube was affixed at approximately 3 cm. It had excellent rotation | | | and did not appear to buckle the skin. The stomach was suctioned | | | free of blood and secretions and the tube was connected to a Jones | | | bag to straight drain. At this point, the patient was carefully | | | positioned for resection. He was positioned on a shoulder roll with | | | the neck gently extended. The neck was carefully palpated and the | | | thyroid notch, cricoid, hyoid bone, and sternal notch were | | | identified. An incision was marked out in an U-shaped apron flap to | | | place a tracheotomy site within the line of the incision | | | approximately 1 fingerbreadth beneath his cricoid cartilage. Once | | | completed, the neck was injected with 1% lidocaine with 1:100,000 | | | epinephrine. A total of 10 cc were used. The neck was then prepped | | | and draped in sterile fashion. An apron skin incision was then | | | made using a #15 blade and subplatysmal flaps were elevated 2 cm | | | above the hyoid bone superiorly and to the sternal notch inferiorly. | | | We first started by performing right modified radical neck | | | dissection. The sternocleidomastoid muscle was identified and | | | dissection was undertaken along its medial edge. This was taken | | | superiorly to the mastoid process. The dissection was taken | | | inferiorly to the clavicular head. Dissection was undertaken at the | | | anterior border of the sternocleidomastoid superiorly down to the | | | level of the posterior belly of the digastric. This was carefully | | | identified and gently dissected anteriorly paying careful attention | | | to avoid dissection superiorly near the marginal mandibular branch | | | of the facial nerve. The posterior facial vein was identified and | | | ligated with 3-0 silk suture. This was ligated superiorly to help | | | protect the marginal mandibular branch of the facial nerve. | | | Dissection was then undertaken along the medial aspect of the | | | sternocleidomastoid muscle. The 11th cranial nerve was identified. | | | This was traced superiorly to the level of the posterior belly of | | | the digastric muscle. The jugular vein was identified at this level | | | as well. Level IIb was not removed with the specimen. We then | | | transitioned just medial to the jugular vein and were able to | | | identify the hypoglossal nerve. This was carefully dissected free | | | and small overlying veins were divided and ligated with 3-0 silk | | | suture in this region. Once completed, we turned our attention | | | inferiorly. The omohyoid muscle was divided using electrocautery. | | | Dissection was carried out inferiorly to the level of the clavicular | | | head. The jugular vein was identified in this region as well. At | | | this point, the specimen was elevated using Marrufo clamps and | | | dissection was undertaken posteriorly toward the cervical rootlets. | | | The cervical rootlets were identified and used to tract anteriorly. | | | The cervical rootlets were not divided and level V was not entered. | | | Dissection was carried out to the level of the spinal accessory | | | nerve.. Once completed, we continued our dissection up on to the | | | internal jugular vein. The vagus nerve was identified and preserved. | | | In addition, the phrenic nerve was identified and preserved. | | | Dissection was carried out anteriorly across the internal jugular | | | vein. The specimen was dissected free of the common facial vein | | | which was preserved. The specimen was then transected at the level of | | | the strap muscles and sent to pathology for permanent sectioning. | | | At this point, we turned our attention to performing the partial | | | laryngectomy. We began by incising the midline vertically from the | | | level of the hyoid to the level of sternal notch. The strap muscles | | | were in the midline and reflected laterally. The thyroid | | | isthmus was identified and reflected laterally. Dissection was | | | undertaken along the trachea and gentle finger dissection was taken | | | retrosternally to the level of the raymundo. The innominate artery was | | | identified and carefully avoided. At this point, we turned our | | | attention to more superior aspects. We divided the sternohyoid | | | muscles at the superior border of the thyroid cartilage. We then | | | divided the thyrohyoid muscles at the upper border of the thyroid | | | cartilage. The sternothyroid muscles were also divided at their | | | insertion into the thyroid cartilage and the cricothyroid space was | | | exposed bilaterally. The superior lobes of the thyroid were | | | reflected laterally. We then turned our attention superiorly and | | | were able to identify the superior laryngeal nerves on either side. | | | These were carefully preserved. With our exposure adequate from the | | | muscle standpoint, we then performed division of the inferior | | | constrictor muscles bilaterally. This was done along the posterior | | | border of the thyroid cartilage and up onto the superior cornu of | | | the thyroid cartilage and inferior cornu of the thyroid cartilage. | | | Careful subperichondrial dissection was undertaken on both sides to | | | free up the piriform sinuses. Only one-third of the thyroid ala was | | | elevated on the tumor-bearing side. Once completed, we turned our | | | attention to the inferior thyroid cornu. This was done on the right | | | side first. The inferior thyroid cornu was carefully dissected free | | | of constrictor muscle and a very judicious dissection in this area | | | allowed subperichondrial dissection and division of the cricothyroid | | | joint. This was carried out in a posterior to anterior direction | | | paying careful attention to avoid injury to the recurrent laryngeal | | | nerve beneath this. Once performed on the right, we performed this | | | on the left as well. Once completed, we had the entire thyroid | | | cartilage isolated and we turned to cricothyrotomy. This was | | | performed in the midline and a 6.5 armored tube was placed into the | | | patient's airway. Once completed, we turned our attention back to | | | the thyroid cartilage and set out about resecting the specimen. | | | Just prior to this, we did put in four 4-0 Prolene sutures into the | | | inferior constrictor muscle and mucosa of the piriform sinuses on | | | both sides. These were tagged and left for closure at the conclusion | | | of the procedure. The thyrohyoid muscle was carefully elevated | | | off the superior border of the thyroid cartilage. We then used a | | | combination of curved Celis scissors and curved Metzenbaum scissors | | | to incise the petiole of the epiglottis. The larynx was entered just | | | above the false vocal folds in the midline. We turned our attention | | | to resection along the left side first. Division of the false vocal | | | fold and true vocal fold was performed just anterior to the vocal | | | process. Careful attention was paid to avoid entry into the | | | cricothyroid joint to avoid ankylosis. We centered our dissection | | | inferiorly to the cricothyrotomy. At this point, the thyroid ala was | | | opened and fractured in the midline to allow complete visualization | | | of the tumor. With the tumor entirely exposed and hemostasis | | | achieved, we were able to make careful mucosal cuts, proximally 4 to | | | 5 mm away from the tumor using a #15 blade. The tumor was noted to | | | involve the paraglottic space and vocal process. It did not | | | extend into the supraglottis. The margin was deemed adequate. | | | Circumferential resection was undertaken and the right arytenoid | | | cartilage was resected with the specimen. At the conclusion of the | | | resection, we carefully looked at the specimen and there did not | | | appear to be any tumor violation. Once completed, frozen section | | | specimens were sent. These were negative with the first cuts. We | | | therefore elected to proceed with reconstruction and partial | | | laryngectomy with the specimen completely removed. Reconstruction | | | was undertaken by passing of 4-0 Vicryl suture in the anterior | | | portion of the arytenoid(s) which was carefully preserved just above | | | the vocal process. This was passed into the cricoid cartilage | | | mucosa of the conus elasticus to raise the cartilage anteriorly. | | | The posterior arytenoid mucosa was then folded over the top of the | | | exposed cricoid and arytenoid(s). This was done using 4-0 Vicryl | | | suture. Once completed, we prepared our impaction sutures. A #1 | | | Vicryl suture was passed around the cricoid, into the petiole of the | | | epiglottis, back out and around the hyoid bone in the midline. | | | Two additional #1 Vicryl sutures were passed in similar fashion 1 | | | cm apart on either side. Once completed, we elevated the tracheotomy | | | and elevated the trachea to the impaction site and chose a suitable | | | site for tracheotomy. The anterior portion of the 5th tracheal ring | | | was resected and the #8 DCT Shiley tracheotomy was placed. At this | | | point, the impaction was undertaken and the #1 Vicryl sutures were | | | sewn in place. The piriform mucosa retaining sutures within the | | | inferior constrictor muscles were then tied over across the midline. | | | Two #10 drains were placed laterally through stab incisions. One | | | was placed inferiorly into the anterior mediastinum. The other was | | | placed into the right neck dissection and superiorly towards the | | | mastoid tip. These were placed to bulb suction. The wound was | | | irrigated with several hundred cc of bactericidal saline solution. | | | The wound was then closed by reapproximating the muscles and fascia | | | in the midline using 3-0 Vicryl sutures in an interrupted fashion. | | | The platysma flaps were then replaced and a number of quilting | | | stitches were placed circumferentially around the tracheotomy to | | | attempt to exclude this. The thyroid isthmus had been reapproximated | | | in the midline as well with 3-0 Vicryl suture just prior to this. | | | The platysmal layers were then closed in an interrupted fashion with | | | 4-0 Vicryl suture. The skin was then closed with 5-0 running fast | | | gut suture in a running fashion. A Kerlix wrap was placed | | | circumferentially around the neck. Of note, I was present for | | | entirety of this procedure. Herman Mueller MD acted as my assistant speech language pathologist | | | during this case as no qualified resident was involved for any of | | | the procedure. DISPOSITION: Mr. Mahmood was returned to Anesthesia | | | for awakening and transferred to the PACU. He tolerated the | | | procedure extremely well. Pasquale Moscoso M.D. 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 Mahmood | | | is a 47 y.o. male with a history of hoarseness, tobacco and alcohol | | | abuse. Mr. Mahmood has been found to have a right vocal fold | | | squamous cell carcinoma by biopsy confirmed here at [facility]. We have | | | discussed the options, including organ preservation surgery, total | | | laryngectomy and chemoradiation therapy, at length. Mr. Mahmood has | | | decided to pursue organ preservation surgery. We discussed the | | | procedure with Mr. Mahmood at length prior to the procedure, including | | | the risks and benefits of the procedure ans well as the risk of | | | converting to total laryngectomy. We also discussed alternative | | | including non-surgical management. After answering all questions | | | to the best of my ability, I obtained informed consent from Mr. Jojo Mahmood prior to proceeding. ANESTHESIA: general endotracheal tube | | | anesthesia ESTIMATED BLOOD LOSS: Less than 200 cc IV FLUID: | | | Crystalloid ANTIBIOTICS: Unasyn SPECIMENS: 1) | | | right modified radical neck dissection, levels IIa-IV 2) larynx 3) | | | right interarytenoid margin 4) right subglottic margin 5) right | | | false vocal fold margin 6) right epiglottis margin 7) right | | | paraglottic space (deep) margin DRAINS/PROSTHETICS/INJECTABLES: | | | 2 x 10 Slade-Blas type drain(s) COMPLICATIONS: None | | | FINDINGS: There was a deeply invasive lesion of the right true | | | vocal fold filling the right paraglottic space. There was no | | | cricoarytenoid joint fixation. The subglottic airway was minimally | | | involved. The tumor remained limited to the right vocal fold and | | | did not seem to extend into the supraglottis. All margins were | | | negative for malignancy or high-grade dysplasia. No worrisome | | | lymph nodes were palpated during resection. The stomach was | | | unremarkable. Procedure: Mr. Mahmood was brought to the operating | | | room and placed in supine position. Following induction of general | | | anesthesia and endotracheal intubation, Mr. Mahmood was turned 180 | | | degrees. He was then prepped and draped in clean fashion for direct | | | microlaryngoscopy. We performed direct microlaryngoscopy using the | | | Pure Klimaschutz laryngoscope and operating telescopes. The teeth were | | | protected. The larynx was carefully inspected. The findings are | | | noted above and Mr. Mhamood was deemed to be a candidate for | | | supracricoid partial laryngectomy with cricohyoidoepiglottopexy | | | reconstruction. At this point, the laryngoscope was removed and | | | Mr. Mahmood was positioned for gastrostomy tube placement. The Olympus | | | gastroscope was passed in the patient's oral cavity, oropharynx, | | | and into the patient's stomach. The stomach was carefully inflated | | | and visualized. The pylorus was noted to be free of lesions and | | | masses and there were no lesions or masses noted throughout the | | | stomach. The anterior wall was palpated with the stomach inflated. A | | | suitable position to approximate the mid clavicular line, | | | approximately 2 fingerbreadths beneath the costal margin was | | | identified. The skin was prepped and draped in sterile fashion. | | | Incision was made with a #11 blade. The needle was placed | | | percutaneously into stomach under direct guidance. A guidewire was | | | passed and this was grasped with a snare through the gastroscope. | | | This was brought out the mouth. The gastrostomy tube was then glided | | | onto the wire and brought transorally through the esophagus and | | | into the position of the stomach. The gastroscope was replaced. The | | | tube was affixed at approximately 3 cm. It had excellent rotation | | | and did not appear to buckle the skin. The stomach was suctioned | | | free of blood and secretions and the tube was connected to a Jones | | | bag to straight drain. At this point, the patient was carefully | | | positioned for resection. He was positioned on a shoulder roll with | | | the neck gently extended. The neck was carefully palpated and the | | | thyroid notch, cricoid, hyoid bone, and sternal notch were | | | identified. An incision was marked out in an U-shaped apron flap to | | | place a tracheotomy site within the line of the incision | | | approximately 1 fingerbreadth beneath his cricoid cartilage. Once | | | completed, the neck was injected with 1% lidocaine with 1:100,000 | | | epinephrine. A total of 10 cc were used. The neck was then prepped | | | and draped in sterile fashion. An apron skin incision was then | | | made using a #15 blade and subplatysmal flaps were elevated 2 cm | | | above the hyoid bone superiorly and to the sternal notch inferiorly. | | | We first started by performing right modified radical neck | | | dissection. The sternocleidomastoid muscle was identified and | | | dissection was undertaken along its medial edge. This was taken | | | superiorly to the mastoid process. The dissection was taken | | | inferiorly to the clavicular head. Dissection was undertaken at the | | | anterior border of the sternocleidomastoid superiorly down to the | | | level of the posterior belly of the digastric. This was carefully | | | identified and gently dissected anteriorly paying careful attention | | | to avoid dissection superiorly near the marginal mandibular branch | | | of the facial nerve. The posterior facial vein was identified and | | | ligated with 3-0 silk suture. This was ligated superiorly to help | | | protect the marginal mandibular branch of the facial nerve. | | | Dissection was then undertaken along the medial aspect of the | | | sternocleidomastoid muscle. The 11th cranial nerve was identified. | | | This was traced superiorly to the level of the posterior belly of | | | the digastric muscle. The jugular vein was identified at this level | | | as well. Level IIb was not removed with the specimen. We then | | | transitioned just medial to the jugular vein and were able to | | | identify the hypoglossal nerve. This was carefully dissected free | | | and small overlying veins were divided and ligated with 3-0 silk | | | suture in this region. Once completed, we turned our attention | | | inferiorly. The omohyoid muscle was divided using electrocautery. | | | Dissection was carried out inferiorly to the level of the clavicular | | | head. The jugular vein was identified in this region as well. At | | | this point, the specimen was elevated using Marrufo clamps and | | | dissection was undertaken posteriorly toward the cervical rootlets. | | | The cervical rootlets were identified and used to tract anteriorly. | | | The cervical rootlets were not divided and level V was not entered. | | | Dissection was carried out to the level of the spinal accessory | | | nerve.. Once completed, we continued our dissection up on to the | | | internal jugular vein. The vagus nerve was identified and preserved. | | | In addition, the phrenic nerve was identified and preserved. | | | Dissection was carried out anteriorly across the internal jugular | | | vein. The specimen was dissected free of the common facial vein | | | which was preserved. The specimen was then transected at the level of | | | the strap muscles and sent to pathology for permanent sectioning. | | | At this point, we turned our attention to performing the partial | | | laryngectomy. We began by incising the midline vertically from the | | | level of the hyoid to the level of sternal notch. The strap muscles | | | were in the midline and reflected laterally. The thyroid | | | isthmus was identified and reflected laterally. Dissection was | | | undertaken along the trachea and gentle finger dissection was taken | | | retrosternally to the level of the raymundo. The innominate artery was | | | identified and carefully avoided. At this point, we turned our | | | attention to more superior aspects. We divided the sternohyoid | | | muscles at the superior border of the thyroid cartilage. We then | | | divided the thyrohyoid muscles at the upper border of the thyroid | | | cartilage. The sternothyroid muscles were also divided at their | | | insertion into the thyroid cartilage and the cricothyroid space was | | | exposed bilaterally. The superior lobes of the thyroid were | | | reflected laterally. We then turned our attention superiorly and | | | were able to identify the superior laryngeal nerves on either side. | | | These were carefully preserved. With our exposure adequate from the | | | muscle standpoint, we then performed division of the inferior | | | constrictor muscles bilaterally. This was done along the posterior | | | border of the thyroid cartilage and up onto the superior cornu of | | | the thyroid cartilage and inferior cornu of the thyroid cartilage. | | | Careful subperichondrial dissection was undertaken on both sides to | | | free up the piriform sinuses. Only one-third of the thyroid ala was | | | elevated on the tumor-bearing side. Once completed, we turned our | | | attention to the inferior thyroid cornu. This was done on the right | | | side first. The inferior thyroid cornu was carefully dissected free | | | of constrictor muscle and a very judicious dissection in this area | | | allowed subperichondrial dissection and division of the cricothyroid | | | joint. This was carried out in a posterior to anterior direction | | | paying careful attention to avoid injury to the recurrent laryngeal | | | nerve beneath this. Once performed on the right, we performed this | | | on the left as well. Once completed, we had the entire thyroid | | | cartilage isolated and we turned to cricothyrotomy. This was | | | performed in the midline and a 6.5 armored tube was placed into the | | | patient's airway. Once completed, we turned our attention back to | | | the thyroid cartilage and set out about resecting the specimen. | | | Just prior to this, we did put in four 4-0 Prolene sutures into the | | | inferior constrictor muscle and mucosa of the piriform sinuses on | | | both sides. These were tagged and left for closure at the conclusion | | | of the procedure. The thyrohyoid muscle was carefully elevated | | | off the superior border of the thyroid cartilage. We then used a | | | combination of curved Celis scissors and curved Metzenbaum scissors | | | to incise the petiole of the epiglottis. The larynx was entered just | | | above the false vocal folds in the midline. We turned our attention | | | to resection along the left side first. Division of the false vocal | | | fold and true vocal fold was performed just anterior to the vocal | | | process. Careful attention was paid to avoid entry into the | | | cricothyroid joint to avoid ankylosis. We centered our dissection | | | inferiorly to the cricothyrotomy. At this point, the thyroid ala was | | | opened and fractured in the midline to allow complete visualization | | | of the tumor. With the tumor entirely exposed and hemostasis | | | achieved, we were able to make careful mucosal cuts, proximally 4 to | | | 5 mm away from the tumor using a #15 blade. The tumor was noted to | | | involve the paraglottic space and vocal process. It did not | | | extend into the supraglottis. The margin was deemed adequate. | | | Circumferential resection was undertaken and the right arytenoid | | | cartilage was resected with the specimen. At the conclusion of the | | | resection, we carefully looked at the specimen and there did not | | | appear to be any tumor violation. Once completed, frozen section | | | specimens were sent. These were negative with the first cuts. We | | | therefore elected to proceed with reconstruction and partial | | | laryngectomy with the specimen completely removed. Reconstruction | | | was undertaken by passing of 4-0 Vicryl suture in the anterior | | | portion of the arytenoid(s) which was carefully preserved just above | | | the vocal process. This was passed into the cricoid cartilage | | | mucosa of the conus elasticus to raise the cartilage anteriorly. | | | The posterior arytenoid mucosa was then folded over the top of the | | | exposed cricoid and arytenoid(s). This was done using 4-0 Vicryl | | | suture. Once completed, we prepared our impaction sutures. A #1 | | | Vicryl suture was passed around the cricoid, into the petiole of the | | | epiglottis, back out and around the hyoid bone in the midline. | | | Two additional #1 Vicryl sutures were passed in similar fashion 1 | | | cm apart on either side. Once completed, we elevated the tracheotomy | | | and elevated the trachea to the impaction site and chose a suitable | | | site for tracheotomy. The anterior portion of the 5th tracheal ring | | | was resected and the #8 DCT Shiley tracheotomy was placed. At this | | | point, the impaction was undertaken and the #1 Vicryl sutures were | | | sewn in place. The piriform mucosa retaining sutures within the | | | inferior constrictor muscles were then tied over across the midline. | | | Two #10 drains were placed laterally through stab incisions. One | | | was placed inferiorly into the anterior mediastinum. The other was | | | placed into the right neck dissection and superiorly towards the | | | mastoid tip. These were placed to bulb suction. The wound was | | | irrigated with several hundred cc of bactericidal saline solution. | | | The wound was then closed by reapproximating the muscles and fascia | | | in the midline using 3-0 Vicryl sutures in an interrupted fashion. | | | The platysma flaps were then replaced and a number of quilting | | | stitches were placed circumferentially around the tracheotomy to | | | attempt to exclude this. The thyroid isthmus had been reapproximated | | | in the midline as well with 3-0 Vicryl suture just prior to this. | | | The platysmal layers were then closed in an interrupted fashion with | | | 4-0 Vicryl suture. The skin was then closed with 5-0 running fast | | | gut suture in a running fashion. A Kerlix wrap was placed | | | circumferentially around the neck. Of note, I was present for | | | entirety of this procedure. Herman Muellre MD acted as my assistant speech language pathologist | | | during this case as no qualified resident was involved for any of | | | the procedure. DISPOSITION: Mr. Mahmood was returned to Anesthesia | | | for awakening and transferred to the PACU. He tolerated the | | | procedure extremely well. Pasquale Moscoso M.D. 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 Mahmood | | | is a 47 y.o. male with a history of hoarseness, tobacco and alcohol | | | abuse. Mr. Mahmood has been found to have a right vocal fold | | | squamous cell carcinoma by biopsy confirmed here at [facility]. We have | | | discussed the options, including organ preservation surgery, total | | | laryngectomy and chemoradiation therapy, at length. Mr. Mahmood has | | | decided to pursue organ preservation surgery. We discussed the | | | procedure with Mr. Mahmood at length prior to the procedure, including | | | the risks and benefits of the procedure ans well as the risk of | | | converting to total laryngectomy. We also discussed alternative | | | including non-surgical management. After answering all questions | | | to the best of my ability, I obtained informed consent from | Jojo Mahmood prior to proceeding. ANESTHESIA: general endotracheal tube | | | anesthesia ESTIMATED BLOOD LOSS: Less than 200 cc IV FLUID: | | | Crystalloid ANTIBIOTICS: Unasyn SPECIMENS: 1) | | | right modified radical neck dissection, levels IIa-IV 2) larynx 3) | | | right interarytenoid margin 4) right subglottic margin 5) right | | | false vocal fold margin 6) right epiglottis margin 7) right | | | paraglottic space (deep) margin DRAINS/PROSTHETICS/INJECTABLES: | | | 2 x 10 Slade-Blas type drain(s) COMPLICATIONS: None | | | FINDINGS: There was a deeply invasive lesion of the right true | | | vocal fold filling the right paraglottic space. There was no | | | cricoarytenoid joint fixation. The subglottic airway was minimally | | | involved. The tumor remained limited to the right vocal fold and | | | did not seem to extend into the supraglottis. All margins were | | | negative for malignancy or high-grade dysplasia. No worrisome | | | lymph nodes were palpated during resection. The stomach was | | | unremarkable. Procedure: Mr. Mahmood was brought to the operating | | | room and placed in supine position. Following induction of general | | | anesthesia and endotracheal intubation, Mr. Mahmood was turned 180 | | | degrees. He was then prepped and draped in clean fashion for direct | | | microlaryngoscopy. We performed direct microlaryngoscopy using the | | | Box Jumpinger laryngoscope and operating telescopes. The teeth were | | | protected. The larynx was carefully inspected. The findings are | | | noted above and Mr. Mahmood was deemed to be a candidate for | | | supracricoid partial laryngectomy with cricohyoidoepiglottopexy | | | reconstruction. At this point, the laryngoscope was removed and | | | Mr. Mahmood was positioned for gastrostomy tube placement. The Olympus | | | gastroscope was passed in the patient's oral cavity, oropharynx, | | | and into the patient's stomach. The stomach was carefully inflated | | | and visualized. The pylorus was noted to be free of lesions and | | | masses and there were no lesions or masses noted throughout the | | | stomach. The anterior wall was palpated with the stomach inflated. A | | | suitable position to approximate the mid clavicular line, | | | approximately 2 fingerbreadths beneath the costal margin was | | | identified. The skin was prepped and draped in sterile fashion. | | | Incision was made with a #11 blade. The needle was placed | | | percutaneously into stomach under direct guidance. A guidewire was | | | passed and this was grasped with a snare through the gastroscope. | | | This was brought out the mouth. The gastrostomy tube was then glided | | | onto the wire and brought transorally through the esophagus and | | | into the position of the stomach. The gastroscope was replaced. The | | | tube was affixed at approximately 3 cm. It had excellent rotation | | | and did not appear to buckle the skin. The stomach was suctioned | | | free of blood and secretions and the tube was connected to a Jones | | | bag to straight drain. At this point, the patient was carefully | | | positioned for resection. He was positioned on a shoulder roll with | | | the neck gently extended. The neck was carefully palpated and the | | | thyroid notch, cricoid, hyoid bone, and sternal notch were | | | identified. An incision was marked out in an U-shaped apron flap to | | | place a tracheotomy site within the line of the incision | | | approximately 1 fingerbreadth beneath his cricoid cartilage. Once | | | completed, the neck was injected with 1% lidocaine with 1:100,000 | | | epinephrine. A total of 10 cc were used. The neck was then prepped | | | and draped in sterile fashion. An apron skin incision was then | | | made using a #15 blade and subplatysmal flaps were elevated 2 cm | | | above the hyoid bone superiorly and to the sternal notch inferiorly. | | | We first started by performing right modified radical neck | | | dissection. The sternocleidomastoid muscle was identified and | | | dissection was undertaken along its medial edge. This was taken | | | superiorly to the mastoid process. The dissection was taken | | | inferiorly to the clavicular head. Dissection was undertaken at the | | | anterior border of the sternocleidomastoid superiorly down to the | | | level of the posterior belly of the digastric. This was carefully | | | identified and gently dissected anteriorly paying careful attention | | | to avoid dissection superiorly near the marginal mandibular branch | | | of the facial nerve. The posterior facial vein was identified and | | | ligated with 3-0 silk suture. This was ligated superiorly to help | | | protect the marginal mandibular branch of the facial nerve. | | | Dissection was then undertaken along the medial aspect of the | | | sternocleidomastoid muscle. The 11th cranial nerve was identified. | | | This was traced superiorly to the level of the posterior belly of | | | the digastric muscle. The jugular vein was identified at this level | | | as well. Level IIb was not removed with the specimen. We then | | | transitioned just medial to the jugular vein and were able to | | | identify the hypoglossal nerve. This was carefully dissected free | | | and small overlying veins were divided and ligated with 3-0 silk | | | suture in this region. Once completed, we turned our attention | | | inferiorly. The omohyoid muscle was divided using electrocautery. | | | Dissection was carried out inferiorly to the level of the clavicular | | | head. The jugular vein was identified in this region as well. At | | | this point, the specimen was elevated using Marrufo clamps and | | | dissection was undertaken posteriorly toward the cervical rootlets. | | | The cervical rootlets were identified and used to tract anteriorly. | | | The cervical rootlets were not divided and level V was not entered. | | | Dissection was carried out to the level of the spinal accessory | | | nerve.. Once completed, we continued our dissection up on to the | | | internal jugular vein. The vagus nerve was identified and preserved. | | | In addition, the phrenic nerve was identified and preserved. | | | Dissection was carried out anteriorly across the internal jugular | | | vein. The specimen was dissected free of the common facial vein | | | which was preserved. The specimen was then transected at the level of | | | the strap muscles and sent to pathology for permanent sectioning. | | | At this point, we turned our attention to performing the partial | | | laryngectomy. We began by incising the midline vertically from the | | | level of the hyoid to the level of sternal notch. The strap muscles | | | were in the midline and reflected laterally. The thyroid | | | isthmus was identified and reflected laterally. Dissection was | | | undertaken along the trachea and gentle finger dissection was taken | | | retrosternally to the level of the raymundo. The innominate artery was | | | identified and carefully avoided. At this point, we turned our | | | attention to more superior aspects. We divided the sternohyoid | | | muscles at the superior border of the thyroid cartilage. We then | | | divided the thyrohyoid muscles at the upper border of the thyroid | | | cartilage. The sternothyroid muscles were also divided at their | | | insertion into the thyroid cartilage and the cricothyroid space was | | | exposed bilaterally. The superior lobes of the thyroid were | | | reflected laterally. We then turned our attention superiorly and | | | were able to identify the superior laryngeal nerves on either side. | | | These were carefully preserved. With our exposure adequate from the | | | muscle standpoint, we then performed division of the inferior | | | constrictor muscles bilaterally. This was done along the posterior | | | border of the thyroid cartilage and up onto the superior cornu of | | | the thyroid cartilage and inferior cornu of the thyroid cartilage. | | | Careful subperichondrial dissection was undertaken on both sides to | | | free up the piriform sinuses. Only one-third of the thyroid ala was | | | elevated on the tumor-bearing side. Once completed, we turned our | | | attention to the inferior thyroid cornu. This was done on the right | | | side first. The inferior thyroid cornu was carefully dissected free | | | of constrictor muscle and a very judicious dissection in this area | | | allowed subperichondrial dissection and division of the cricothyroid | | | joint. This was carried out in a posterior to anterior direction | | | paying careful attention to avoid injury to the recurrent laryngeal | | | nerve beneath this. Once performed on the right, we performed this | | | on the left as well. Once completed, we had the entire thyroid | | | cartilage isolated and we turned to cricothyrotomy. This was | | | performed in the midline and a 6.5 armored tube was placed into the | | | patient's airway. Once completed, we turned our attention back to | | | the thyroid cartilage and set out about resecting the specimen. | | | Just prior to this, we did put in four 4-0 Prolene sutures into the | | | inferior constrictor muscle and mucosa of the piriform sinuses on | | | both sides. These were tagged and left for closure at the conclusion | | | of the procedure. The thyrohyoid muscle was carefully elevated | | | off the superior border of the thyroid cartilage. We then used a | | | combination of curved Celis scissors and curved Metzenbaum scissors | | | to incise the petiole of the epiglottis. The larynx was entered just | | | above the false vocal folds in the midline. We turned our attention | | | to resection along the left side first. Division of the false vocal | | | fold and true vocal fold was performed just anterior to the vocal | | | process. Careful attention was paid to avoid entry into the | | | cricothyroid joint to avoid ankylosis. We centered our dissection | | | inferiorly to the cricothyrotomy. At this point, the thyroid ala was | | | opened and fractured in the midline to allow complete visualization | | | of the tumor. With the tumor entirely exposed and hemostasis | | | achieved, we were able to make careful mucosal cuts, proximally 4 to | | | 5 mm away from the tumor using a #15 blade. The tumor was noted to | | | involve the paraglottic space and vocal process. It did not | | | extend into the supraglottis. The margin was deemed adequate. | | | Circumferential resection was undertaken and the right arytenoid | | | cartilage was resected with the specimen. At the conclusion of the | | | resection, we carefully looked at the specimen and there did not | | | appear to be any tumor violation. Once completed, frozen section | | | specimens were sent. These were negative with the first cuts. We | | | therefore elected to proceed with reconstruction and partial | | | laryngectomy with the specimen completely removed. Reconstruction | | | was undertaken by passing of 4-0 Vicryl suture in the anterior | | | portion of the arytenoid(s) which was carefully preserved just above | | | the vocal process. This was passed into the cricoid cartilage | | | mucosa of the conus elasticus to raise the cartilage anteriorly. | | | The posterior arytenoid mucosa was then folded over the top of the | | | exposed cricoid and arytenoid(s). This was done using 4-0 Vicryl | | | suture. Once completed, we prepared our impaction sutures. A #1 | | | Vicryl suture was passed around the cricoid, into the petiole of the | | | epiglottis, back out and around the hyoid bone in the midline. | | | Two additional #1 Vicryl sutures were passed in similar fashion 1 | | | cm apart on either side. Once completed, we elevated the tracheotomy | | | and elevated the trachea to the impaction site and chose a suitable | | | site for tracheotomy. The anterior portion of the 5th tracheal ring | | | was resected and the #8 DCT Shiley tracheotomy was placed. At this | | | point, the impaction was undertaken and the #1 Vicryl sutures were | | | sewn in place. The piriform mucosa retaining sutures within the | | | inferior constrictor muscles were then tied over across the midline. | | | Two #10 drains were placed laterally through stab incisions. One | | | was placed inferiorly into the anterior mediastinum. The other was | | | placed into the right neck dissection and superiorly towards the | | | mastoid tip. These were placed to bulb suction. The wound was | | | irrigated with several hundred cc of bactericidal saline solution. | | | The wound was then closed by reapproximating the muscles and fascia | | | in the midline using 3-0 Vicryl sutures in an interrupted fashion. | | | The platysma flaps were then replaced and a number of quilting | | | stitches were placed circumferentially around the tracheotomy to | | | attempt to exclude this. The thyroid isthmus had been reapproximated | | | in the midline as well with 3-0 Vicryl suture just prior to this. | | | The platysmal layers were then closed in an interrupted fashion with | | | 4-0 Vicryl suture. The skin was then closed with 5-0 running fast | | | gut suture in a running fashion. A Kerlix wrap was placed | | | circumferentially around the neck. Of note, I was present for | | | entirety of this procedure. Herman Mueller MD acted as my assistant speech language pathologist | | | during this case as no qualified resident was involved for any of | | | the procedure. DISPOSITION: Mr. Mahmood was returned to Anesthesia | | | for awakening and transferred to the PACU. He tolerated the | | | procedure extremely well. Pasquale Moscoso M.D. | | | Physical Anthropologist Laryngology and Head & Neck Surgery | | + + + X-RAY PORTABLE CHEST 1 VIEW (01/16/2018 6:51 PM PDT) + + | Specimen | + + | | + + + + + | Narrative | Performed At | + + + | STUDY: [place] CHEST 1 VIEW HISTORY: Subcoracoid partial laryngectomy | [facility] | | and tracheostomy. COMPARISON: None. FINDINGS: A | RADIOLOGY VOICE | | tracheostomy tube terminates in the mid trachea. Subcutaneous gas | RECOGNITION | | within the neck tracking into the mediastinum is expected | | | postoperatively. There are streaky perihilar opacities, without | | | consolidation. There is no effusion or profiled pneumothorax. The | | | bones are intact. A surgical drain is noted in the right neck. | | | IMPRESSION: Expected postoperative findings after laryngectomy | | | and tracheostomy. Streaky perihilar opacities are favored to | | | represent atelectasis, although aspiration can be considered. I | | | have personally reviewed the images and, if necessary, edited the | | | report. I agree with the report as now presented. | | + + + + + | Procedure Note | + + | Service Account, Radiant Res In Interface - 01/17/2018 8:49 AM PDT STUDY: [place] CHEST 1 | | VIEWHISTORY: Subcoracoid partial laryngectomy and tracheostomy.COMPARISON: | | None.FINDINGS: A tracheostomy tube terminates in the mid trachea. Subcutaneous gas | | within the neck tracking into the mediastinum is expected postoperatively. There are | | streaky perihilar opacities, without consolidation. There is no effusion or profiled | | pneumothorax. The bones are intact. A surgical drain is noted in the right | | neck.IMPRESSION: Expected postoperative findings after laryngectomy and | | tracheostomy.Streaky perihilar opacities are favored to represent atelectasis, although | | aspiration can be considered.I have personally reviewed the images and, if necessary, | | edited the report. I agree with the report as now presented. | | | |IMPRESSION: | | | |Expected postoperative findings after laryngectomy and tracheostomy. | | | |Streaky perihilar opacities are favored to represent atelectasis, although aspiration can b e considered. | | | | | |I have personally reviewed the images and, if necessary, edited the report. I agree with t he report as now presented. | + + + +---------+ + + | Performing | Address | City/State/Zipcode | Phone Number | | Organization | | | | + +---------+ + + | [facility] | | | | | VOICE RECOGNITION | | | | + +---------+ + + CAPILLARY BLOOD GLUCOSE (NO CHG), POC (01/16/2018 5:54 PM PDT) + +---------+ + + + | Component | Value | Ref Range | Performed | Pathologist | | | | | At | Signature | + +---------+ + + + | BLOOD | 172 (H) | 70 - 99 mg/dL | [facility] - | | | GLUCOSE, | | | [facility] | | | POC | | | [facility] | | | | | | OF CARE | | | | | | TESTS | | + +---------+ + + + + + | Specimen | + + | | + + + + + + + | Performing | Address | City/State/Zipcode | Phone Number | | Organization | | | | + + + + + | [facility] | [address] | [place], [place] | | | [facility] | [address] | [address] | | | TESTS | | | | + + + + + SURGICAL PATHOLOGY (01/16/2018 2:41 PM PDT) + + + + + + | Component | Value | Ref Range | Performed | Pathologist | | | | | At | Signature | + + + + + + | Clinical | Malignant neoplasm of | | [facility] | | | History | glottis, Dysphonia | | DEPARTMENT | | | | | | OF | | | | | | PATHOLOGY | | + + + + + + | Final | A. Right neck contenst, | | [facility] | Electronically | | Pathologic | dissection: Nine lymph | | DEPARTMENT | signed by Shamar | | Diagnosis | nodes, negative for | | OF | R Baldemar, | | | carcinoma (0)B. Right | | PATHOLOGY | MD,PhD on | | | inter arytenoid, | | | 01/24/2018 at | | | biopsy: Squamous | | | 5:04 PM | | | mucosa, negative for | | | | | | carcinoma or high grade | | | | | | dysplasiaC. Right | | | | | | subglottis, biopsy: | | | | | | Squamous mucosa with | | | | | | submucosal glands, | | | | | | negative for carcinoma | | | | | | or high grade | | | | | | dysplasiaD. Right false | | | | | | vocal cord, biopsy: | | | | | | Squamous mucosa with | | | | | | submucosal glands, | | | | | | negative for carcinoma | | | | | | or high grade | | | | | | dysplasiaE. Right side | | | | | | epiglottis, biopsy: | | | | | | Squamous mucosa with | | | | | | submucosal glands, | | | | | | negative for carcinoma | | | | | | or high grade | | | | | | dysplasiaF. Right side | | | | | | paraglotic, biopsy: | | | | | | Skeletal muscle, | | | | | | negative for carcinomaG. 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 See parts B-F | | | | | | for final margin | | | | | | statusComment: A | | | | | | cytokeratin cocktail | | | | | | stain was performed on | | | | | | blocks G3 and G4 to | | | | | | evaluate margin | | | | | | status.Case seen | | | | | | by:Anitha Galindo MD / | | | | | | Pathology ResidentKevin | | | | | | R MD Baldemar PhD / | | | | | | Pathologist [...] + + + + + + | SYNOPTIC | LARYNX (SUPRAGLOTTIS, | | [facility] | | | REPORTS | GLOTTIS, SUBGLOTTIS) | | DEPARTMENT | | | | (Larynx - All | | OF | | | | Specimens) SPECIMEN | | PATHOLOGY | | | | Procedure: Partial | | | | | | laryngectomy: | | | | | | supracricoid partial | | | | | | laryngectomy sparing | | | | | | left arytenoid TUMOR | | | | | | Tumor Site: | | | | | | Larynx, glottis | | | | | | : with subglottic | | | | | | extension | | | | | | Transglottic Extension: | | | | | | Present Tumor | | | | | | Laterality: Right | | | | | | Histologic Type: | | | | | | : Squamous | | | | | | cell carcinoma, | | | | | | conventional | | | | | | (keratinizing) | | | | | | Histologic Grade: | | | | | | G2: Moderately | | | | | | differentiated Tumor | | | | | | Focality: Unifocal | | | | | | Tumor Size: | | | | | | Greatest dimension in | | | | | | Centimeters (cm): 1.1 | | | | | | Centimeters (cm) | | | | | | Tumor Extent: | | | | | | Tumor Extension: | | | | | | invades adjacent | | | | | | skeletal muscle without | | | | | | cartilage or bone | | | | | | involvment | | | | | | Lymphovascular Invasion: | | | | | | Not identified | | | | | | Perineural Invasion: | | | | | | Not identified | | | | | | MARGINS Margins: | | | | | | Uninvolved by invasive | | | | | | tumor Distance | | | | | | from Closest Margin in | | | | | | Millimeters (mm): | | | | | | Cannot be determined: | | | | | | separately submitted | | | | | | margins (parts B-F) | | | | | | LYMPH NODES : | | | | | | Regional Lymph Nodes: | | | | | | Number | | | | | | Involved: 0 | | | | | | Number of Lymph Nodes | | | | | | Examined: 9 | | | | | | PATHOLOGIC STAGE | | | | | | CLASSIFICATION (pTNM, | | | | | | AJCC 8th Edition) : | | | | | | Primary Tumor | | | | | | (pT): pT4a | | | | | | Regional Lymph Nodes | | | | | | (pN): pN0 | | | | + + + + + + | Gross | Received are 7 specimens | | [facility] | | | Description | fresh in containers | | DEPARTMENT | | | | labeled with the | | OF | | | | patient's name (initials | | PATHOLOGY | | | | JK) and medical record | | | | | | number [id number].A. Neck, | | | | | | Right neck content: | | | | | | Received labeled, "right | | | | | | neck contents," are 3 | | | | | | fragments of bentley-yellow | | | | | | soft tissue measuring | | | | | | 7.0 x 3.5 x 1.3 cm in | | | | | | aggregate. The entire | | | | | | specimen is sectioned | | | | | | and palpated to reveal 9 | | | | | | possible lymph nodes | | | | | | ranging in size from | | | | | | 0.3-2.0 cm. All lymph | | | | | | nodes entirely | | | | | | submitted.A1, one | | | | | | possible lymph node | | | | | | (bisected)A2, one | | | | | | possible lymph node | | | | | | (bisected)A3, two | | | | | | possible lymph nodes | | | | | | (one inked black, both | | | | | | bisected)A4, 2 possible | | | | | | lymph nodesA5, 3 | | | | | | possible lymph nodesB. | | | | | | Neck, Right inter | | | | | | arytenoid FS: Received | | | | | | labeled, "right inter | | | | | | arytenoid," is one | | | | | | fragment of bentley-red soft | | | | | | tissue measuring 0.7 x | | | | | | 0.4 x 0.3 cm. The entire | | | | | | specimen is submitted | | | | | | for frozen section and | | | | | | the frozen section | | | | | | residue is entirely | | | | | | resubmitted in one | | | | | | cassette.C. Neck, Right | | | | | | subglottis FS: Received | | | | | | labeled, "" right | | | | | | subglottis," is one | | | | | | strip of bentley-red soft | | | | | | tissue measuring 0.5 x | | | | | | 0.4 x 0.4 cm. The entire | | | | | | specimen is submitted | | | | | | for frozen section and | | | | | | frozen section residue | | | | | | is entirely resubmitted | | | | | | in one cassette.D. Neck, | | | | | | Right false vocal cord | | | | | | FS: Received labeled, | | | | | | "right false vocal | | | | | | cord," are 2 fragments | | | | | | of bentley-red soft tissue | | | | | | measuring 0.5 x 0.4 x | | | | | | 0.4 cm in aggregate. The | | | | | | entire specimen is | | | | | | submitted for frozen | | | | | | section and is in | | | | | | section residue is | | | | | | entirely resubmitted in | | | | | | one cassette.E. Neck, | | | | | | Right side epiglottis | | | | | | FS: Received labeled, | | | | | | "right side epiglottis," | | | | | | is one fragment of | | | | | | bentley-red soft tissue | | | | | | measuring 0.4 x 0.4 x | | | | | | 0.4 cm. The entire | | | | | | specimen is submitted | | | | | | for frozen section | | | | | | frozen section diagnosis | | | | | | is entirely resubmitted | | | | | | in one cassette.F. | | | | | | Neck, Right side | | | | | | paraglotic FS: Received | | | | | | labeled, "right side | | | | | | paraglottic," is one | | | | | | fragment of bentley-red soft | | | | | | tissue measuring 0.6 x | | | | | | 0.3 x 0.2 cm. The entire | | | | | | specimen is submitted | | | | | | for frozen section and | | | | | | the frozen section | | | | | | residue is entirely | | | | | | resubmitted in one | | | | | | cassette.G. Neck, | | | | | | Larynx: Received | | | | | | labeled, "larynx," is a | | | | | | partial | | | | | | uettdv-bshhyst-jetmzgpd | | | | | | laryngectomy that | | | | | | measures 4.5 SI x 4.0 AP | | | | | | x 5.0 RL cm and | | | | | | consists of a 4.5SI x | | | | | | 4.0 AP x 5.0 RL thyroid | | | | | | cartilage and attached | | | | | | soft tissue. No cricoid, | | | | | | hyoid, epiglottis, | | | | | | thyroid or trachea is | | | | | | present. Mucosa is | | | | | | present on the anterior | | | | | | and right side of the | | | | | | specimen and measures | | | | | | 2.6SI x 1.5 AP cm. The | | | | | | specimen is received | | | | | | with a linear defect of | | | | | | the thyroid cartilage on | | | | | | the left side. Gross | | | | | | photographs are taken. | | | | | | Prior to sectioning the | | | | | | specimen is inked as | | | | | | follows:Superior soft | | | | | | tissue | | | | | | | | | | | | orange, inferior soft | | | | | | tissue | | | | | | | | | | | | green, right soft | | | | | | tissue | | | | | | | | | | | | blue, left soft tissue | | | | | | | | | | | | black, posterior right | | | | | | tissue- yellow, left | | | | | | soft tissue margin- red. | | | | | | There is a right | | | | | | ulcerative glottic | | | | | | lesion that measures 1.1 | | | | | | x 0.4 cm adjacent to | | | | | | the right true and false | | | | | | vocal cords. The lesion | | | | | | does not appear to | | | | | | involve the | | | | | | aryepiglottic fold. The | | | | | | lesion is located 0.6 cm | | | | | | from the posterior | | | | | | mucosal margin, 1.1 cm | | | | | | from the superior | | | | | | mucosal margin, 0.6 cm | | | | | | from the inferior | | | | | | mucosal margin, 0.7 cm | | | | | | from the left mucosal | | | | | | margin, 1.2 cm from the | | | | | | superior soft tissue | | | | | | margin, 1.4 cm on the | | | | | | inferior soft tissue | | | | | | margin, 1.4 cm from the | | | | | | right anterior soft | | | | | | tissue margin, 2.5 cm | | | | | | from the left anterior | | | | | | soft tissue margin.The | | | | | | lesion is serially | | | | | | sectioned to reveal an | | | | | | poorly defined white cut | | | | | | surface. The lesion | | | | | | appears to measure up to | | | | | | 0.6 cm in depth and is | | | | | | located 0.4 cm from the | | | | | | underlying thyroid | | | | | | cartilage. The entire | | | | | | lesion is | | | | | | submitted.Process Description Writer | | | | | | sections are submitted | | | | | | as follows:G1- | | | | | | perpendicular posterior | | | | | | right soft tissue | | | | | | marginG2 perpendicular | | | | | | right aryepiglottic | | | | | | foldG3-G9 entire lesion | | | | | | submitted from right to | | | | | | left, to include vocal | | | | | | folds in cassettes G7-G9 | | | | | | G8 branch service representative | | | | | | perpendicular left soft | | | | | | tissue margin(JMH- A-F) | | | | | | (ID- G) | | | | + + + + + + | Intraoperat | Frozen section | | [facility] | | | anika use | diagnosis: B1. Neck. | | DEPARTMENT | | | only - | Right Inter Arytenoid: | | OF | | | Final | Negative for carcinoma | | PATHOLOGY | | | diagnosis | or high grade dysplasia | | | | | listed | Frozen section | | | | | separately | diagnosis: C1. Neck. | | | | | | Right Subglottis: | | | | | | Negative for carcinoma | | | | | | or high grade dysplasia | | | | | | Frozen section | | | | | | diagnosis: D1. Neck. | | | | | | Right False Vocal Cord: | | | | | | Negative for carcinoma | | | | | | or high grade dysplasia | | | | | | Frozen section | | | | | | diagnosis: E1. Neck. | | | | | | Right Side Epiglottis: | | | | | | Negative for carcinoma | | | | | | or high grade dysplasia | | | | | | Frozen section | | | | | | diagnosis: F1. Neck. | | | | | | Right Side Paraglotic: | | | | | | Negative for carcinoma | | | | | | or high grade dysplasia | | | | | | Frozen section | | | | | | pathologist(s): Shamar Hanks | | | | | | MD Baldemar PhD / | | | | | | Pathologist | | | | + + + + + + + + | Specimen | + + | Tissue - Neck [...] | + + + + + | [facility] | [address] | [place] [address] | | | PATHOLOGY | [address] | | | + + + + + CONFIRMATORY ABO/RH (01/16/2018 8:05 AM PDT) + + + + + + | Component | Value | Ref Range | Performed | Pathologist | | | | | At | Signature | + + + + + + | ABO Group | B | | [facility] | | | | | | [facility] | | | | | | SERVICES, | | | | | | TRANSFUSION | | | | | | MEDICINE | | + + + + + + | Rh Type | Positive | | [facility] | | | | | | [facility] | | | | | | SERVICES, | | | | | | TRANSFUSION | | | | | | MEDICINE | | + + + + + + + + | Specimen | + + | Blood - Blood | | (substance) | + + + + + + + | Performing | Address | City/State/Zipcode | Phone Number | | Organization | | | | + + + + + | [facility] | [address] | [place] [address] | | | SERVICES, | [address] | | | | TRANSFUSION MEDICINE | | | | + + + + + 12 LEAD ECG (01/16/2018 6:33 AM PDT) + + + + + + | Component | Value | Ref Range | Performed | Pathologist | | | | | At | Signature | + + + + + + | VENTRICULAR | 74 | bpm | [facility] | | | RATE | | | OF | | | | | | CARDIOLOGY | | + + + + + + | ATRIAL RATE | 74 | ms | [facility] | | | | | | OF | | | | | | CARDIOLOGY | | + + + + + + | P-R | 201 | ms | [facility] | | | INTERVAL | | | OF | | | | | | CARDIOLOGY | | + + + + + + | P AXIS | 50 | deg | [facility] | | | | | | OF | | | | | | CARDIOLOGY | | + + + + + + | QRS | 114 | ms | [facility] | | | DURATION | | | OF | | | | | | CARDIOLOGY | | + + + + + + | QT | 412 | ms | [facility] | | | | | | OF | | | | | | CARDIOLOGY | | + + + + + + | QTC-FINA | 457 | ms | [facility] | | | | | | OF | | | | | | CARDIOLOGY | | + + + + + + | R AXIS | 1 | deg | [facility] DEPT | | | | | | OF | | | | | | CARDIOLOGY | | + + + + + + | T AXIS | 26 | deg | [facility] | | | | | | OF | | | | | | CARDIOLOGY | | + + + + + + | ECG | Sinus rhythm- NORMAL ECG | | [facility] | | | IMPRESSION | - | | OF | | | | | | CARDIOLOGY | | + + + + + + | ECG | Electronically signed | | [facility] | | | IMPRESSION | by: RUPINDER PAT | | OF | | | | 01-16-2018 12:23:18 | | CARDIOLOGY | | + + + + + + + + | Specimen | + + | | + + + + + | Narrative | Performed At | + + + | | | + + + + + + + + | Performing | Address | City/State/Zipcode | Phone Number | | Organization | | | | + + + + + | [facility] | [address] | [place], [place] | | | CARDIOLOGY | [facility] | [address] | | + + + + + CAPILLARY BLOOD GLUCOSE (NO CHG), POC (01/16/2018 6:32 AM PDT) + +-------+ + + + | Component | Value | Ref Range | Performed | Pathologist | | | | | At | Signature | + +-------+ + + + | BLOOD | 98 | 70 - 99 mg/dL | [facility] - | | | GLUCOSE, | | | [facility] | | | POC | | | [facility] | | [...] | + + + + + | [facility] | [address] | [place], [place] | | | [facility] | [address] | [id number] | | | TESTS | | | | + + + + + CBC (HEMOGRAM) ONLY (01/16/2018 6:29 AM PDT) + + + + + + | Component | Value | Ref Range | Performed | Pathologist | | | | | At | Signature | + + + + + + | WHITE CELL | 6.71 | 3.50 - 10.80 | [facility] | | | COUNT | | K/cu mm | LABORATORY | | | | | | SERVICES, | | | | | | CORE | | + + + + + + | RED CELL | 4.41 (L) | 4.50 - 6.00 | [facility] | | | COUNT | | M/cu mm | LABORATORY | | | | | | SERVICES, | | | | | | CORE | | + + + + + + | HEMOGLOBIN | 14.5 | 13.5 - 17.5 | [facility] | | | | | g/dL | LABORATORY | | | | | | SERVICES, | | | | | | CORE | | + + + + + + | HEMATOCRIT | 41.4 | 41.0 - 53.0 % | [facility] | | | | | | LABORATORY | | | | | | SERVICES, | | | | | | CORE | | + + + + + + | MCV | 93.9 | 80.0 - 96.0 fL | [facility] | | | | | | LABORATORY | | | | | | SERVICES, | | | | | | CORE | | + + + + + + | MCHC | 35.0 | 33.0 - 35.5 | [facility] | | | | | g/dL | LABORATORY | | | | | | SERVICES, | | | | | | CORE | | + + + + + + | RDW SD | 42.2 | 35.1 - 46.3 fL | [facility] | | | | | | LABORATORY | | | | | | SERVICES, | | | | | | CORE | | + + + + + + | PLATELET | 228 | 150 - 400 K/cu | [facility] | | | COUNT | | mm | LABORATORY | | | | | | SERVICES, | | | | | | CORE | | + + + + + + | MPV | 9.7 | 9.7 - 12.3 fL | [facility] | | | | | | LABORATORY | | | | | | SERVICES, | | | | | | CORE | | + + + + + + | NRBC% | 0.0 | 0.0 - 0.3 % | [facility] | | | | | | LABORATORY | | | | | | SERVICES, | | | | | | CORE | | + + + + + + | NRBC# | 0.00 | 0.00 - 0.02 | [facility] | | | | | K/cu mm | LABORATORY | | | | | | SERVICES, | | | | | | CORE | | + + + + + + + + | Specimen | + + | Blood - Blood | | (substance) | + + + + + + + | Performing | Address | City/State/Zipcode | Phone Number | | Organization | | | | + + + + + | [facility] | [address] | [place] [address] | | | SERVICES, CORE | [address] | | | + + + + + ANTIBODY SCREEN (01/16/2018 6:29 AM PDT) + + + + + + | Component | Value | Ref Range | Performed | Pathologist | | | | | At | Signature | + + + + + + | Antibody | Negative | | [facility] | | | Screen | | | LABORATORY | | | | | | SERVICES, | | | | | | TRANSFUSION | | | | | | MEDICINE | | + + + + + + + + | Specimen | + + | Blood - Blood | | (substance) | + + + + + + + | Performing | Address | City/State/Zipcode | Phone Number | | Organization | | | | + + + + + | [facility] | [address] | [place] [address] | | | SERVICES, | [address] | | | | TRANSFUSION MEDICINE | | | | + + + + + ABO & RH TYPE (01/16/2018 6:29 AM PDT) + + + + + + | Component | Value | Ref Range | Performed | Pathologist | | | | | At | Signature | + + + + + + | ABO Group | B | | [facility] | | | | | | LABORATORY | | | | | | SERVICES, | | | | | | TRANSFUSION | | | | | | MEDICINE | | + + + + + + | Rh Type | Positive | | [facility] | | | | | | LABORATORY | | | | | | SERVICES, | | | | | | TRANSFUSION | | | | | | MEDICINE | | + + + + + + + + | Specimen | + + | Blood - Blood | | (substance) | + + + + + + + | Performing | Address | City/State/Zipcode | Phone Number | | Organization | | | | + + + + + | [facility] | [address] | [place] [address] | | | SERVICES, | [address] | | | | TRANSFUSION MEDICINE | | | | + + + + + COAGULOPATHY PANEL (INR,APTT,FIBRINOGEN) (01/16/2018 6:29 AM PDT) + +-------+ + + + | Component | Value | Ref Range | Performed | Pathologist | | | | | At | Signature | + +-------+ + + + | INR | 0.98 | 0.90 - 1.20 INR | [facility] | | | | | | LABORATORY | | | | | | SERVICES, | | | | | | CORE | | + +-------+ + + + | APTT | 29.2 | 26.0 - 36.0 | [facility] | | | | | seconds | LABORATORY | | | | | | SERVICES, | | | | | | CORE | | + +-------+ + + + | FIBRINOGEN | 381 | 200 - 450 mg/dL | [facility] | | | LEVEL | | | LABORATORY | | | | | | SERVICES, | | | | | | CORE | | + +-------+ + + + + + | Specimen | + + | Blood - Blood | | (substance) | + + + + + | Narrative | Performed At | + + + | INR Therapeutic ranges for full anticoagulation: INR for | [facility] | | Venous Thromboembolism (2.0 - 3.0) INR INR for | LABORATORY | | most patients with mech. valves (2.5 - 3.5) INR APTT | SERVICES, CORE | | Therapeutic Range: (75 - 120) sec | | | Heparin levels of 0.35 - 0.7 U/mL | | + + + + + + + + | Performing | Address | City/State/Zipcode | Phone Number | | Organization | | | | + + + + + | [facility] | [address] [facility] | [place] [address] | | | SERVICES, CORE | [address] | | | + + + + + BASIC METABOLIC SET (NA, K, CL, TCO2, BUN, CR, GLU, CA) (01/16/2018 6:29 AM PDT) + +---------+ + + + | Component | Value | Ref Range | Performed | Pathologist | | | | | At | Signature | + +---------+ + + + | GLUCOSE, | 98 | 70 - 99 mg/dL | [facility] | | | PLASMA | | | LABORATORY | | | (LAB) | | | SERVICES, | | | | | | CORE | | + +---------+ + + + | BUN, PLASMA | 7 | 6 - 20 mg/dL | [facility] | | | (LAB) | | | LABORATORY | | | | | | SERVICES, | | | | | | CORE | | + +---------+ + + + | CREATININE | 0.74 | 0.70 - 1.30 | [facility] | | | PLASMA | | mg/dL | LABORATORY | | | (LAB) | | | SERVICES, | | | | | | CORE | | + +---------+ + + + | EGFR | >60 | >60 mL/min | [facility] | | | - | | | LABORATORY | | | PALAUAN | | | SERVICES, | | | | | | CORE | | + +---------+ + + + | EGFR NON | >60 | >60 mL/min | [facility] | | | -DUANE | | | LABORATORY | | | RICAN | | | SERVICES, | | | | | | CORE | | + +---------+ + + + | SODIUM, | 137 | 136 - 145 | [facility] | | | PLASMA | | mmol/L | LABORATORY | | | (LAB) | | | SERVICES, | | | | | | CORE | | + +---------+ + + + | POTASSIUM, | 3.6 | 3.4 - 5.0 | [facility] | | | PLASMA | | mmol/L | LABORATORY | | | (LAB) | | | SERVICES, | | | | | | CORE | | + +---------+ + + + | CHLORIDE, | 104 | 97 - 108 mmol/L | [facility] | | | PLASMA | | | LABORATORY | | | (LAB) | | | SERVICES, | | | | | | CORE | | + +---------+ + + + | TOTAL CO2, | 25 | 21 - 32 mmol/L | [facility] | | | PLASMA | | | LABORATORY | | | (LAB) | | | SERVICES, | | | | | | CORE | | + +---------+ + + + | CALCIUM, | 8.9 | 8.6 - 10.2 | [facility] | | | PLASMA | | mg/dL | LABORATORY | | | (LAB) | | | SERVICES, | | | | | | CORE | | + +---------+ + + + | ANION GAP | 8 | 4 - 11 mmol/L | [facility] | | | | | | LABORATORY | | | | | | SERVICES, | | | | | | CORE | | + +---------+ + + + | POTASSIUM | No Hemo | | [facility] | | | CMNT | | | LABORATORY | | | | | | SERVICES, | | | | | | CORE | | + +---------+ + + + + + | Specimen | + + | Blood - Blood | | (substance) | + + + + + | Narrative | Performed At | + + + | Adult glucose reference range change effective 7-12-17. GFR is | [facility] | | estimated using the MDRD equation recommended by the National Kidney | LABORATORY | | Disease Education Program. Estimated GFR Interpretive Information: | SERVICES, CORE | | <60 mL/min/1.73 sq m Chronic Kidney Disease | | | <15 mL/min/1.73 sq m Kidney Failure Estimated | | | GFR greater that 60 mL/min/1.73 sq m is of limited clinical value. | | | The MDRD equation is not valid in the following situations: - | | | Patients under 18 years of age - Severe malnutrition or obesity - | | | Vegetarian diet - Rapidly changing kidney function | | + + + + + + + + | Performing | Address | City/State/Zipcode | Phone Number | | Organization | | | | + + + + + | [facility] | [address] | [place] [address] | | | [address] | | | + + + + + INTRAPROCEDURE IMAGING (01/16/2018 6:01 AM PDT) + + | Specimen | + + | | + + + + + | Narrative | Performed At | + + + | See admission or procedure notes for details of any intraprocedure | | | images obtained. | | + + + CARDIOLOGY (01/16/2018 12:00 AM PDT) + + + | [...] | acetaminophen (TYLENOL) tablet | Given | 01/24/20 | 1,000 mg | | | | 1,000 mg 1,000 mg, feeding tube, | | 18 12:37 | | | | | FOUR TIMES DAILY, First dose | | PM PDT | | | | | (after last modification) on Tue | | | | | | | 01/17/18 at 1300, Until | | | | | | | Discontinued | | | | | | + +--------+ + +------+------+ +-------+ + +---+---+ | Given | 01/24/20 | 1,000 mg | | | | | 18 8:16 | | | | | | AM PDT | | | | +-------+ + +---+---+ | Given | 01/23/20 | 1,000 mg | | | | | 18 9:33 | | | | | | PM PDT | | | | +-------+ + +---+---+ +---+---+ | | | +---+---+ + +-------+ +-------+---+---+ | amLODIPine (NORVASC) tablet 10 | Given | 01/24/20 | 10 mg | | | | mg 10 mg, feeding tube, DAILY, | | 18 8:16 | | | | | First dose on Tue01/16/18 at 1500, | | AM PDT | | | | | Until Discontinued | | | | | | + +-------+ +-------+---+---+ +-------+ +-------+---+---+ | Given | 01/23/20 | 10 mg | | | | | 18 8:13 | | | | | | AM PDT | | | | +-------+ +-------+---+---+ | Given | 01/22/20 | 10 mg | | | | | 18 9:00 | | | | | | AM PDT | | | | +-------+ +-------+---+---+ +---+---+ | | | +---+---+ + +---------+ +-----+---+---+ | ampicillin-sulbactam (UNASYN) 3 | New Bag | 01/24/20 | 3 g | | | | g in NaCl 0.9 % IV 3 g, | | 18 4:11 | | | | | intravenous, EVERY 6 HOURS, First | | AM PDT | | | | | dose on Tue01/20/18 at 1715, | | | | | | | Until Discontinued | | | | | | + +---------+ +-----+---+---+ +---------+ +-----+-------+---+ | New Bag | 01/23/20 | 3 g | 200 | | | | 18 10:09 | | mL/hr | | | | PM PDT | | | | +---------+ +-----+-------+---+ | New Bag | 01/23/20 | 3 g | | | | | 18 4:02 | | | | | | PM PDT | | | | +---------+ +-----+-------+---+ +---+---+ | | | +---+---+ + +-------+ +-------+---+---+ | chlorhexidine (PERIDEX) | Given | 01/24/20 | 15 mL | | | | mouthwash 15 mL 15 mL, oral, | | 18 8:16 | | | | | TWICE DAILY, First dose on Tue | | AM PDT | | | | | 01/17/18 at 0600, Until | | | | | | | Discontinued | | | | | | + +-------+ +-------+---+---+ +-------+ +-------+---+---+ | Given | 01/23/20 | 15 mL | | | | | 18 8:03 | | | | | | PM PDT | | | | +-------+ +-------+---+---+ | Given | 01/23/20 | 15 mL | | | | | 18 8:13 | | | | | | AM PDT | | | | +-------+ +-------+---+---+ +---+---+ | | | +---+---+ + +-------+ +-------+---+---+ | docusate sodium liquid 50 mg | Given | 01/21/20 | 50 mg | | | | 50 mg, feeding tube, TWICE DAILY, | | 18 9:00 | | | | | First dose on Tue01/16/18 at | | PM PDT | | | | | 2100, Until Discontinued | | | | | | + +-------+ +-------+---+---+ +-------+ +-------+---+---+ | Given | 01/21/20 | 50 mg | | | | | 18 9:05 | | | | | | AM PDT | | | | +-------+ +-------+---+---+ | Given | 01/20/20 | 50 mg | | | | | 18 9:25 | | | | | | PM PDT | | | | +-------+ +-------+---+---+ +---+---+ | | | +---+---+ + +-------+ +-------+---+---------+ | enoxaparin (LOVENOX) injection | Given | 01/23/20 | 40 mg | | Abdomen | | 40 mg 40 mg, subcutaneous, EVERY | | 18 8:03 | | | | | EVENING, First dose on Tue | | PM PDT | | | | | 01/17/18 at 2100, Until | | | | | | | Discontinued | | | | | | + +-------+ +-------+---+---------+ +-------+ +-------+---+---------+ | Given | 01/22/20 | 40 mg | | Abdomen | | | 18 8:58 | | | | | | PM PDT | | | | +-------+ +-------+---+---------+ | Given | 01/21/20 | 40 mg | | Abdomen | | | 18 9:00 | | | | | | PM PDT | | | | +-------+ +-------+---+---------+ +---+---+ | | | +---+---+ + +-------+ +-------+---+---+ | famotidine (PEPCID) suspension | Given | 01/24/20 | 20 mg | | | | 20 mg 20 mg, feeding tube, TWICE | | 18 10:42 | | | | | DAILY, First dose on 01/16/18 | | AM PDT | | | | | at 2100, Until Discontinued | | | | | | + +-------+ +-------+---+---+ +-------+ +-------+---+---+ | Given | 01/23/20 | 20 mg | | | | | 18 9:33 | | | | | | PM PDT | | | | +-------+ +-------+---+---+ | Given | 01/23/20 | 20 mg | | | | | 18 8:13 | | | | | | AM PDT | | | | +-------+ +-------+---+---+ +---+---+ | | | +---+---+ + +-------+ +---------+---+---+ | fluticasone-salmeterol (ADVAIR | Given | 01/24/20 | 2 puffs | | | | HFA) 230-21 mcg/actuation HFAA 2 | | 18 8:56 | | | | | puff 2 puff, inhalation, TWICE | | AM PDT | | | | | DAILY, First dose on Tue01/18/18 | | | | | | | at 2130, Until Discontinued | | | | | | + +-------+ +---------+---+---+ +-------+ +---------+---+---+ | Given | 01/23/20 | 2 puffs | | | | | 18 8:55 | | | | | | AM PDT | | | | +-------+ +---------+---+---+ | Given | 01/22/20 | 2 puffs | | | | | 18 8:40 | | | | | | PM PDT | | | | +-------+ +---------+---+---+ +---+---+ | | | +---+---+ + +-------+ +-------+---+------+ | lidocaine-EPINEPHrine | Given | 01/17/20 | 20 mL | | Neck | | (XYLOCAINE WITH EPINEPHRINE) 1 | | 18 10:42 | | | | | %-1:100,000 injection | | AM PDT | | | | | INTRAPROCEDURE PRN, Starting Mon | | | | | | | 01/16/18 at 1042, Until Tue01/16/18 | | | | | | | at 1744 | | | | | | + +-------+ +-------+---+------+ +---+---+ | | | +---+---+ + +-------+ +--------+---+---+ | morphine injection 0.5 mg 0.5 | Given | 01/20/20 | 0.5 mg | | | | mg, intravenous, EVERY 4 HOURS | | 18 12:14 | | | | | NEEDED, Starting 01/18/18 at | | PM PDT | | | | | 1906, Until Tue01/23/18 at 2027, | | | | | | | severe pain | | | | | | + +-------+ +--------+---+---+ +-------+ +--------+---+---+ | Given | 01/20/20 | 0.5 mg | | | | | 18 4:36 | | | | | | AM PDT | | | | +-------+ +--------+---+---+ | Given | 01/19/20 | 0.5 mg | | | | | 18 7:26 | | | | | | PM PDT | | | | +-------+ +--------+---+---+ + +---+ | | | + +---+ | ondansetron (ZOFRAN) tablet 8 | | | mg 8 mg, feeding tube, EVERY 12 | | | HOURS NEEDED, Starting Sun | | | 01/22/18 at 1048, Until Tue01/23/18 | | | at 2027, nausea/vomiting, first | | | line | | + +---+ | | | + +---+ + +-------+ +-------+---+---+ | oxyCODONE (immediate release) | Given | 01/24/20 | 20 mg | | | | (ROXICODONE) liquid 10-20 mg | | 18 12:37 | | | | | 10-20 mg, feeding tube, EVERY 4 | | PM PDT | | | | | HOURS NEEDED, Starting Wed | | | | | | | 01/18/18 at 1906, Until 01/23/18 | | | | | | | at 2027, moderate pain | | | | | | + +-------+ +-------+---+---+ +-------+ +-------+---+---+ | Given | 01/24/20 | 20 mg | | | | | 18 8:16 | | | | | | AM PDT | | | | +-------+ +-------+---+---+ | Given | 01/24/20 | 20 mg | | | | | 18 4:10 | | | | | | AM PDT | | | | +-------+ +-------+---+---+ +---+---+ | | | +---+---+ + +-------+ +------+---+---+ | polyethylene glycol (MIRALAX) | Given | 01/21/20 | 17 g | | | | packet 17 g 17 g, feeding tube, | | 18 9:07 | | | | | DAILY, First dose on Tue01/17/18 | | AM PDT | | | | | at 0900, Until Discontinued | | | | | | + +-------+ +------+---+---+ +-------+ +------+---+---+ | Given | 01/20/20 | 17 g | | | | | 18 8:57 | | | | | | AM PDT | | | | +-------+ +------+---+---+ | Given | 01/19/20 | 17 g | | | | | 18 8:40 | | | | | | AM PDT | | | | +-------+ +------+---+---+ +---+---+ | | | +---+---+ + +-------+ +------+---+---+ | polyethylene glycol (MIRALAX) | Given | 01/21/20 | 34 g | | | | packet 34 g 34 g, feeding tube, | | 18 6:35 | | | | | THREE TIMES DAILY NEEDED, | | PM PDT | | | | | Starting 01/16/18 at 2034, | | | | | | | Until 01/23/18 at 2027, 1st | | | | | | | line - for no BM for 2 days | | | | | | + +-------+ +------+---+---+ +-------+ +------+---+---+ | Given | 01/20/20 | 34 g | | | | | 18 5:19 | | | | | | PM PDT | | | | +-------+ +------+---+---+ + +---+ | | | + +---+ | prochlorperazine (COMPAZINE) | | | tablet 5-10 mg 5-10 mg, feeding | | | tube, EVERY 6 HOURS NEEDED, | | | Starting 01/22/18 at 1048, | | | Until 01/23/18 at 2027, | | | nausea/vomiting, second line | | + +---+ | | | + +---+ + +-------+ +---------+---+---+ | QUEtiapine (SEROQUEL) tablet | Given | 01/22/20 | 12.5 mg | | | | 12.5 mg 12.5 mg, feeding tube, | | 18 8:57 | | | | | AT BEDTIME NEEDED, Starting | | PM PDT | | | | | 01/20/18 at 1358, Until Mon | | | | | | | 01/23/18 at 2028, agitation, | | | | | | | aggression, non-redirectable | | | | | | | combativeness | | | | | | + +-------+ +---------+---+---+ +-------+ +---------+---+---+ | Given | 01/21/20 | 12.5 mg | | | | | 18 10:26 | | | | | | PM PDT | | | | +-------+ +---------+---+---+ +---+---+ | | | +---+---+ + +-------+ +--------+---+---+ | senna (SENOKOT) liquid 8.8 mg | Given | 01/21/20 | 8.8 mg | | | | 8.8 mg (5 mL), feeding tube, | | 18 9:00 | | | | | TWICE DAILY, First dose on Mon | | PM PDT | | | | | 01/16/18 at 2100, Until | | | | | | | Discontinued | | | | | | + +-------+ +--------+---+---+ +-------+ +--------+---+---+ | Given | 01/21/20 | 8.8 mg | | | | | 18 9:05 | | | | | | AM PDT | | | | +-------+ +--------+---+---+ | Given | 01/20/20 | 8.8 mg | | | | | 18 9:25 | | | | | | PM PDT | | | | +-------+ +--------+---+---+ +---+---+ | | | +---+---+ + +-------+ +------+---+---+ | varenicline (CHANTIX) tablet 1 | Given | 01/24/20 | 1 mg | | | | mg 1 mg, feeding tube, DAILY, | | 18 10:42 | | | | | First dose on 4/8/18 at 1100, | | AM PDT | | | | | Until Discontinued | | | | | | + +-------+ +------+---+---+ +-------+ +------+---+---+ | Given | 01/23/20 | 1 mg | | | | | 18 11:59 | | | | | | AM PDT | | | | +-------+ +------+---+---+ +---+---+ | | | +---+---+ documented in this encounter
--- OUTSIDE RECORDS SUMMARY | ~2019-10-09 | XMS | Encounter Summary ---
Demographics + + + | Address | [address] | | | [place] [address] | + + + | Home Phone | | + + + | Preferred Language | Unknown | + + + | Marital Status | | + + + | Adventist Affiliation | Unknown | + + + | Race | Unknown | + + + | Ethnic Group | Unknown | + + + Author + + + | Author | [facility] | | | and [place] | + + + | Organization | [facility] | | | [...] Team Providers + +------+ + | Care Pamphlet Distributor Name | Role | Phone | + [...] | | | [address] | [address] | | | | | [place] [address] | | | | | | [phone] | | | +--------+ + + + [...] [place] | | | | | | [id number] | | | | | | | | +--------+ + + + + documented as of this encounter Visit Diagnoses Not on filedocumented in this encounter"
--- OUTSIDE RECORDS SUMMARY | ~2019-10-09 | XMS | Encounter Summary ---
Demographics + + + | Address | [address] | | | [place] [address] | + + + | Home Phone | | + + + | Preferred Language | Unknown | + + + | Marital Status | | + + + | Mandaeism Affiliation | NRP | + + + | Race | White | + + + | Ethnic Group | Not or | + + + Author + + + | Author | [facility] | + + + | Organization | [facility] | + + + | Address | Unknown | + + + | Phone | Unavailable | + + + Support + + + + + | Name | Relationship | Address | Phone | + + + + + | Cecile Chowdhury | ECON | [address] | | | | | [place] [address] | | + + + + + Care Team Providers + +------+ + | Care Erecting Crane Operator Name | Role | Phone | [...] Pharmacy | | | | | | [address] | | | | | | [address] [place], [place] | | | | | | [address] | | | | | | [phone] | | | +--------+ + + + [...] | Visit | | MD [place] [address] | | | | | | [address] | | | | | | [place], [place] | | | | | | [address] | | | | | | [phone] | | | | | | | | +--------+---------+ + + + documented as of this encounter Visit Diagnoses Not on filedocumented in this encounter"
--- OUTSIDE RECORDS SUMMARY | ~2019-10-09 | XMS | Encounter Summary ---
Demographics + + + | Address | [address] | | | [place] [address] | + + + | Home Phone | | + + + | Preferred Language | Unknown | + + + | Marital Status | | + + + | Pentecostal Affiliation | Unknown | + + + | Race | Unknown | + + + | Ethnic Group | Unknown | + + + Author + + + | Author | [facility] | | | and [place] | + + + | Organization | [facility] | | | [...] Team Providers + +------+ + | Care Electron Tube Assembler Name | Role | Phone | [...] | | [facility] [address] [place], [place] | | | | | [address] | [address] | | | | | [place] [address] | | | | | | [phone] | | | +--------+--------+ + + + [...] [place] | | | | | | [address] | | | | | | | | +--------+ + + + + documented as of this encounter Visit Diagnoses Not on filedocumented in this encounter"
--- OUTSIDE RECORDS SUMMARY | ~2019-10-09 | XMS | Encounter Summary ---
Demographics + + + | Address | [address] | | | [place] [address] | + + + | Home Phone | | + + + | Preferred Language | Unknown | + + + | Marital Status | | + + + | Faith Affiliation | Unknown | + + + | Race | Unknown | + + + | Ethnic Group | Unknown | + + + Author + + + | Author | [facility] | | | and [place] | + + + | Organization | [facility] | | | [...] Team Providers + +------+ + | Care Dyed Raw Stock Blower Feeder Name | Role | Phone | + [...] Brianna [place] | | | | | [phone] | [place] [address] | | +--------+ + + + + [...] [place] | | | | | | [address] | | | | | | | | +--------+ + + + + documented as of this encounter Procedures + +--------+ + + + | Procedure Name | Priori | Date/Time | Associated Diagnosis | Comments | | | ty | | | | + +--------+ + + + | US ABDOMEN COMPLETE | Routin | 12/07/2016 | | Results for this | | | e | 4:00 PM | | procedure are in the | | | | PST | | results section. | + +--------+ + + + documented in this encounter Results US Abdomen Complete (12/07/2016 4:00 PM PST) + + | Specimen | [...]
--- OUTSIDE RECORDS SUMMARY | ~2019-10-09 | XMS | Encounter Summary ---
Demographics + + + | Address | [address] | | | [place] [address] | + + + | Home Phone | | + + + | Preferred Language | Unknown | + + + | Marital Status | | + + + | [employer] Affiliation | Unknown | + + + | Race | Unknown | + + + | Ethnic Group | Unknown | + + + Author + + + | Author | [facility] | | | and [place] | + + + | Organization | [facility] | | | [...] Team Providers + +------+ + | Care Preschool Adviser Name | Role | Phone | + [...] Exam | BASIL AGUILAR | MD [address] | | | | | EXTERNAL IMAGING | Brianna MAY | | | | | Jenny [place] | [place] [address] | | | | | [place] | | | | | | [address] | | | | | | [phone] | | | +--------+ + + + [...] NEREIDA | | | | | | [place] | | | | | | [address] | | | | | | | | +--------+ + + + + documented as of this encounter Procedures + +--------+ + + + | Procedure Name | Priori | Date/Time | Associated Diagnosis | Comments | | | ty | | | | + +--------+ + + + | XR CHEST 1 VIEW | Routin | 01/16/2018 | | Results for this | | | e | 12:00 AM | | procedure are in the | | | | PDT | | results section. | + +--------+ + + + documented in this encounter Results XR Chest 1 Vw (01/16/2018 12:00 AM PDT) + + | Specimen [...]
--- OUTSIDE RECORDS SUMMARY | ~2019-10-09 | XMS | Encounter Summary ---
Demographics + + + | Address | [address] | | | [place] [address] | + + + | Home Phone | | + + + | Preferred Language | Unknown | + + + | Marital Status | | + + + | Samaritan Affiliation | Unknown | + + + | Race | Unknown | + + + | Ethnic Group | Unknown | + + + Author + + + | Author | [facility] | | | and [place] | + + + | Organization | [facility] | | | [...] Team Providers + +------+ + | Care Child Custody Evaluator Name | Role | Phone | + +------+ + PCP | Unavailable | + +------+ + Encounter Details +--------+ + + + + | Date | Type | Department | Care Team | Description | +--------+ + + + + | 07/23/ | Hospital | [facility] | Celso Marino MD | | | 2004 | Encounter | MED CTR MP INTRA OP | [address] [place] | | | | | [address] | [address] [place], | | | | | [place], [place] | [place] [address] | | | | | [address] | [phone] | | | | | [phone] | | | +--------+ + + + [...] [place] | | | | | | [address] | | | | | | | | +--------+ + + + + documented as of this encounter Visit Diagnoses Not on filedocumented in this encounter"
--- OUTSIDE RECORDS SUMMARY | ~2019-10-09 | XMS | Encounter Summary ---
Demographics + + + | Address | [address] | | | [place] [address] | + + + | Home Phone [...] | | | | [place] [address] | | + + + + + Care Team Providers + +------+ + | Care Product Test Specialist Name | Role | Phone | [...] | Laryngology Services | MD Sidney [address] [facility] | | | | | at [facility] [address] | | | | | [address] [place], | [place], [place] | | | | | [place] [address] | [address] | | | | | [phone] | [phone] | | | | | | | [...] Rd | | | | | | [place] | | | | | | [address] | | | | | | [phone] | | | | | | | | +--------+---------+ + + + documented as of this encounter Visit Diagnoses Not on filedocumented in this encounter"
--- OUTSIDE RECORDS SUMMARY | ~2019-10-09 | XMS | Encounter Summary ---
Demographics + + + | Address | [address] | | | [place] [address] | + + + | Home Phone | | + + + | Preferred Language | Unknown | + + + | Marital Status | | + + + | Moravian Affiliation | Unknown | + + + | Race | Unknown | + + + | Ethnic Group | Unknown | + + + Author + + + | Author | [facility] | | | and [place] | + + + | Organization | [facility] | | | [...] Team Providers + +------+ + | Care Cloth Grader Supervisor Name | Role | Phone | [...] | [address]ottis | [address] | [address] [place] | | | | | ([facility], [facility]) | [place], | [place], | | | | | | [place] [address] | [place] [address] | | | | | | Phone: | Phone: | | | | | | [phone] | [phone] | | | | | | Fax: | Fax: | | | | | | [phone] | [phone] | +--------+ + + + + + Encounter Details +--------+ + + + + | Date | Type | Department | Care Team | Description | +--------+ + + + + | 08/17/ | Hospital | [facility] | Naida Burnette | Malignant neoplasm | | 2018 | Encounter | MED CTR NUTRITION | MD Brad [address] | of glottis (HCC) | | | | SERVICES [address] [place], [place] | | | | | [place], | [address] | | | | | [place] [address] | | | | | | [phone] | [place], | | | | [...] (6' 2.02") Estimated needs (wt. 80 kg) 7406-5969 kcals/day 80-96 gm pro/day Medications: reviewed ASSESSMENT/PLAN: [...] | | | | [address] [place] | | | | | | [address] | | | | | | | | +--------+ + + + + + + +--------+ + + | Name | Type | Priori | Associated Diagnoses | Order Schedule | | | | ty | | | + + +--------+ + + | AMB Referral to [facility] | Outpatient | Routin | Malignant neoplasm [...]
--- OUTSIDE RECORDS SUMMARY | ~2019-10-09 | XMS | Encounter Summary ---
Demographics + + + | Address | [address] | | | [place] [address] | + + + | Home Phone | | + + + | Preferred Language | Unknown | + + + | Marital Status | | + + + | Samaritan Affiliation | Unknown | + + + | Race | Unknown | + + + | Ethnic Group | Unknown | + + + Author + + + | Author | [facility] | | | and [place] | + + + | Organization | [facility] | | | and [...] Team Providers + +------+ + | Care Assistant Program Manager Name | Role | Phone | + +------+ + | Daniel Cannon MD | PCP | | + +------+ + Encounter Details +--------+ + + + + | Date | Type | Department | Care Team | Description | +--------+ + + + + | 09/21/ | Hospital | [facility] | Naida Burnette | | | 2018 | Encounter | MED CTR RADIATION | MD Brad [address] | | | | | ONCOLOGY [address] [place] | | | | | [place], | [address] | | | | | [place] [address] | | | | | | [phone] | | | +--------+ + + + [...]
--- OUTSIDE RECORDS SUMMARY | ~2019-10-09 | XMS | Encounter Summary ---
Demographics + + + | Address | [address] | | | [place] [address] | + + + | Home Phone [...] | Author | [facility] | | | and [place] | + + + | Organization | [facility] | | | and [...] Team Providers + +------+ + | Care Automotive Service Management Teacher Name | Role | Phone | [...] + + | 09/21/ | Hospital | [facility] | Jason Gamble DO | Malignant neoplasm | | 2018 | Encounter | MED CTR RADIATION | [address] | of glottis (HCC) | | | | ONCOLOGY CLINIC [address] | [place], [place] | (Primary Dx) | | | | [address] | [address] | | | | | [place] [address] | | | | | | [phone] | Naida Burnette, | | | | | | MD [address] | | | | | | [place], [place] | | | | | | [address] | | | | | | | [...] daily for 21 days. 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
--- OUTSIDE RECORDS SUMMARY | ~2019-10-09 | XMS | Encounter Summary ---
Demographics + + + | Address | [address] | | | [place] [address] | + + + | Home Phone [...] Team Providers + +------+ + | Care Account Financial Manager Name | Role | Phone | [...] | 08/17/ | Hospital | [facility] | Naida Burnette | Malignant neoplasm | | 2018 | Encounter | MED CTR RADIATION | MD Brad [address] | of glottis (HCC) | | | | ONCOLOGY CLINIC [address] | [place], [place] | (Primary Dx) | | | | [address] | [address] | | | | | [place] [address] | | | | | | [phone] | | | +--------+ + + + [...] [place] | | | | | | [address] | | | | | | | | +--------+ + + + + documented as of this encounter Visit Diagnoses + + | Diagnosis | + + | 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
--- OUTSIDE RECORDS SUMMARY | ~2019-10-09 | XMS | Encounter Summary ---
Demographics + + + | Address | [address] | | | [place] [address] | + + + | Home Phone | | + + + | Preferred Language | Unknown | + + + | Marital Status | | + + + | Jew Affiliation | Unknown | + + + [...] Team Providers + +------+ + | Care Pricing Strategist Name | Role | Phone | + +------+ + | Daniel Cannon MD | PCP | | + +------+ + Encounter Details +--------+ + + + + | Date | Type | Department | Care Team | Description | +--------+ + + + + | 09/20/ | Documentati | [facility] | Lori Tate | | | 2018 | on | MED CNT ONCOLOGY | A, OT | | | | | THERAPY [address] | | | | | | [place], | | | | | | [place] [address] | | | | | | [phone] | | | +--------+ + + + [...] Tate, OT - 09/20/2018 10:09 [facility] [address] [facility] [address] Oncology Rehab Screening Date: 09/20/2018 Patient Information [...] [place] | | | | | | [place], [place] | | | | | | [address] | | | | | | | | +--------+ + + + + documented as of this encounter Visit Diagnoses Not on filedocumented in this encounter"
--- OUTSIDE RECORDS SUMMARY | ~2019-10-09 | XMS | Encounter Summary ---
Demographics + + + | Address | [address] | | | [place] [address] | + + + | Home Phone | | + + + | Preferred Language | Unknown | + + + | Marital Status | | + + + | Yazdanism Affiliation | NRP | + + + | Race | White | + + + | Ethnic Group | Not or | + + + Author + + + | Author | [facility] | + + + | Organization | [facility] | + + + | Address | Unknown | + + + | Phone | Unavailable | + + + Support + + + + + | Name | Relationship | Address | Phone | + + + + + | Cecile Chowdhury | ECON | [address] | | | | | [place] [address] | | + + + + + Care Team Providers + +------+ + | Care Log Buyer Name | Role | Phone | + +------+ + | Daniel Cannon MD | PCP | | + +------+ + Reason for Visit + + + | Reason | Comments | + + + | Follow-up encounter | | + + + Encounter Details +--------+ + + + + | Date | Type | Department | Care Team | Description | +--------+ + + + + | 12/27/ | Telephone | Otolaryngology | Pasquale Moscoso | Follow-up encounter | | 2019 | | Laryngology Services | MD Sidney [address] [facility] | | | | | at [facility] [address] | | | | | [place], | [place], [place] | | | | | [place] [address] | [address] | | | | | [phone] | [phone] | | | | | | | [...] | Visit | | MD Sidney [address] [facility] | | | | | | [address] | | | | | | [place], [place] | | | | | | [address] | | | | | | [phone] | | | | | | | | +--------+---------+ + + + documented as of this encounter Procedures + +--------+ + + + | Procedure Name | Priori | Date/Time | Associated Diagnosis | Comments | | | ty | | | | + +--------+ + + + | OUTSIDE RADIOLOGY - | | 12/27/2018 | | Results for this | | CT | | 12:00 AM | | procedure are in the | | | | PDT | | results section. | + +--------+ + + + documented in this encounter Results OUTSIDE RADIOLOGY - CT (12/27/2018 12:00 AM PDT) + + + | [...]
--- OUTSIDE RECORDS SUMMARY | ~2019-10-09 | XMS | Encounter Summary ---
Demographics + + + | Address | [address] | | | [place] [address] | + + + | Home Phone [...] | | | | [place] [address] | | + + + + + Care Team Providers + +------+ + | Care Driver Retraining Instructor Name | Role | Phone | [...] [address] | | | | | at [facility] [address] | [place], [place] | | | | | [place], | [address] | | | | | [place] [address] | [phone] | | | | | [phone] | | | +--------+--------+ + + + [...] Rd | | | | | | [place] | | | | | | [address] | | | | | | [phone] | | | | | | | | +--------+---------+ + + + documented as of this encounter Visit Diagnoses Not on filedocumented in this encounter"
--- OUTSIDE RECORDS SUMMARY | ~2019-10-09 | XMS | Encounter Summary ---
Demographics + + + | Address | [address] | | | [place] [address] | + + + | Home Phone [...] | | | | [place] [address] | | + + + + + Care Team Providers + +------+ + | Care Service Attendant Name | Role | Phone | + [...] | | | | CONSULT TO | [place], [place] | [address] [place], | | | | | ENT GENERAL | [address] | [place] | | | | | | Phone: | [phone] | | | | | | [phone] | Phone: | | | | | | Fax: | [phone] | | | | | | [phone] | Fax: | | | | | | | [phone] | +--------+--------+ + + + + Encounter Details +--------+---------+ + + + | Date | Type | Department | Care Team | Description | +--------+---------+ + + + | 05/29/ | Office | Otolaryngology | Augustine Leal, | Phlegmon (Primary | | 2018 | Visit | Laryngology Services | [address] | Dx); Pharyngeal | | | | at [facility] [address] | [place], [place] | dysphagia; Neck | | | | [place], | [address] | infection | | | | [place] [address] | [phone] | | | | | [phone] | | | +--------+---------+ + + + [...] | Weight | 97.3 kg (214 lb 6.4 | 05/29/2018 10:47 AM | | | | oz) | PDT | | + + + + + | Height | - | - | | + + + + + | Body Mass Index | 27.53 | 05/17/2018 10:08 AM | | | [...] Instructions Patient Instructions Pamela Ford MA - 05/29/2018 11:00 AM PDTThank you for choosing [facility] Department of Otolaryngology for your health care needs. If you need to speak to an ENT physician after normal business hours, please call [phone] and ask to have the ENT phys ician animal taxonomist paged. documented in this encounter Progress Notes Augustine Leal MD - 05/29/2018 11:00 AM PDTAddendum: Although the wet read from radiology of his CT neck was likely infectious, the final report states malignancy as being higher of the differential than infection. I had Dr. Casper Wright also look over the CT scan today who agrees that malignancy is more likely than infection. I called the patient who was unavailable and thus spoke with his instead. It was comm unicated to her that malignancy is a more likely explanation for this neck mass but that it may still be infectious in etiology. I strongly recommended that they come in to clinic on Tuesday to be seen by myself and Dr. Moscoso after undergoing an FNA in our office. She wi ll speak with her and get back to us shortly. Our digital director is aware of this plan. It was also communicated that he should continue to take the antibiotics in the mean time. Pamela Flynn MA - 05/29/2018 11:00 AM PDTlaryngoscopy procedure was performed using the following instrument s: Description #1: laryngoscope Serial ID #1: [id number] Augustine Villar MD - 05/29/2018 11:00 AM PDT PATIENT NAME: Ronni Chowdhury [facility] MR#: [id number] : 1970 REFERRING PROVIDER: [place] [address] PRIMARY CARE PHYSICIAN: Daniel Cannon MD CLINIC: [facility] REASON FOR FOLLOW-UP: Chief Complaint Patient presents with Follow-up visit HPI: Mr. Chowdhury is a 47 y.o. male who returns with the complaint of right neck mass. He de scribes this as firm and moderately tender to palpation. He first noticed it 4 days prior a nd states it has progressively enlarged since that time. He denies any fevers, chills, dysp hagia, increased dysphonia, dyspnea. He has had no issues since his surgery. He had his fe eding tube removed in February and tolerating a regular diet without difficulty. I order a CT neck with contrast today which showed evidence of early abscess vs phlegmon in the anterior right neck approx 1.5x2cm. At the time of his prior procedure in January he was noted to have: FINDINGS: There [...] during resection. The stomach was unremarkable . PMHx: Past Medical History: Diagnosis Date Alcohol [...] to 1 mg twice daily. Feeding tube famotidine 20 mg oral tablet Take 1 [...] 3 tablets a day. Indications: Neuropathic Pain oxyCODONE (immediate release) 5 mg oral tablet [...] facility-administered medications for this visit. EXAMINATION: Wt 97.3 kg (214 lb 6.4 oz) | BMI 27.53 kg/(m^2) Gen: He is a 47 y.o. [...] The neck has a healed apron incision. His right strap muscles are firm and prominent . There is no fluctuance to them. There is generalized erythema the blanches with pressure over the entirety of the anterior cervical neck. There is no evidence of fistula. There is no crepitance noted. There is no lymphadenopathy noted in the anterior, posterior, digas tric or submental triangles. The larynx is absent and the pexis [...] and symmetric throughout. The pupils are equal. District Manager Primary Care Sales strength does jessica ear full bilaterally. Facial [...] noted. There are no extremity tremors noted. LARYNGOSCOPY: Laryngoscopy was performed using a 3.5mm flexible videolaryngoscope. Direct visualization with a mirror could not be obtained due to gag reflex. This demonstrates a c lear vallecula and crisp epiglottis. The aryepiglottic folds are intact and symmetric bilat erally. The hypopharynx is clear to the limits of my examination today and shows no pooling . The interarytenoid space demonstrates no lesions. There is no pachydermia noted. The fa lse vocal folds are symmetric and without lesions or masses. They do demonstrate incorporat ion during sustained vowel phonation. False fold voicing (plica ventricularis) is not noted today. ADduction of the RIGHT vocal fold is normal. ABduction of the RIGHT vocal fold is normal. ADduction of the LEFT vocal fold is normal. ABduction of the LEFT vocal fold is no rmal. There is no paradoxical motion. The right medial edge is crisp and shows no lesions or masses. The right mucosal covering demonstrates mild edema. The right vocal fold demons trates no erythema. The right vocal fold does not have obvious vascular ectasia. The left medial edge is crisp and shows no lesions or masses. The left mucosal covering demonstrat es mild edema. The left vocal fold demonstrates no erythema. The left vocal fold does not have obvious vascular ectasia. While closure is difficult to assess completely without stro boscopy, it does appear to be complete with a -like closure. The right vocal process does n ot demonstrate a granuloma or contact ulcer. The left vocal process does not demonstrate a granuloma or contact ulcer. To the limits of the examination today, the subglottis is clear . Pseudosulcus is not evident today. Incision and Drainage of Right neck abscess: 3cc of 2% lidocaine in 1:100,000 epinephrine was injected subcutaneously around the intend ed area of possible incision. An 18gauge needle on a 10cc synringe was used to aspirate. Mu ltiple sites were used but no fluid was aspirated. As such no incision or drainage was perfo rmed. ASSESSMENT: Mr. Chowdhury has a right neck infection with phlegmon. Recurrence/persistence o f carcinoma can not be ruled out in entirety at this time. We discussed these findings at [facility] today. PLAN: It is reasonable to try oral antibiotics for this infection. We will start 600mg of Clinda tid x 2 weeks. If his neck mass gets larger, more painful, or any difficulty breath ing he is instructed to contact us or head to the ER as he will need IV abx and another atte mpted aspiration. He is to contact us with pictures within 2 days. Augustine Leal MD Laryngology Fellow OTOLARYNGOLOGY LARYNGOLOGY SERVICES AT [facility] [address] [place] [phone] documented in this e ncounter Plan of Treatment +--------+---------+ + + + | Date | Type | Specialty | Care Team | Description | +--------+---------+ + + + | 03/19/ | Office | Otolaryngology | Pasquale Moscoso | | | 2020 | Visit | | MD Sidney [address] [facility] | | | | | | [address] | | | | | | [place], [place] | | | | | | [address] | | | | | | [phone] | | | | | | | | +--------+---------+ + + + documented as of this encounter Visit Diagnoses + + | Diagnosis | + + | Phlegmon - Primary Cellulitis and abscess of unspecified site | + + | Pharyngeal dysphagia Dysphagia, pharyngeal phase | + + | Neck infection Unspecified infectious and parasitic diseases | + + documented in this encounter"
--- OUTSIDE RECORDS SUMMARY | ~2019-10-09 | XMS | Encounter Summary ---
Demographics + + + | Address | [address] | | | [place] [address] | + + + | Home Phone | | + + + | Preferred Language | Unknown | + + + | Marital Status | | + + + | Worship Affiliation | Unknown | + + + [...] Providers + +------+ + | Care Dental Coordinator Name | Role | Phone | [...] MD | persistent, | | | | [place], | | uncomplicated | | | | [place] [address] | | (Primary Dx); | | | | [phone] | | Allergic rhinitis | | | [...] made to ensure accuracy; however, inadvertent computerized shipping hand errors may be pre sent. documented in t his encounter Plan of Treatment +--------+ + + + + | Date | Type | Specialty | Care Team | Description | +--------+ + + + + | 01/01/ | Appointment | Radiation Oncology | Naida Burnette | | | 2019 | | | MD [address] [place] | | | | | | [place], [place] | | | | | | [...]
--- OUTSIDE RECORDS SUMMARY | ~2019-10-09 | XMS | Encounter Summary ---
Demographics + + + | Address | [address] | | | [place] [address] | + + + | Home Phone [...] Team Providers + +------+ + | Care Transit Mechanic Name | Role | Phone | [...] + + | 01/22/ | Office | [facility] | [place], | Asthma, moderate | | 2015 | Visit | PULMONARY [address] | Latisha Dominguez MD | persistent, | | | | [place], | | uncomplicated | | | | [place] [address] | | (Primary Dx); | | | | [phone] | | Tobacco abuse; Need | | [...] here today for follow up of a [facility]. At their last visit, we had reincreased [...] has not been seen in the emergency [facility]. His controller regimen consists of Advair 500mcg [...] made to ensure accuracy; however, inadvertent computerized director erp errors may be pre sent. documented in t his encounter Plan of Treatment +--------+ + + + + | Date | Type | Specialty | Care Team | Description | +--------+ + + + + | 01/01/ | Appointment | Radiation Oncology | Naida Burnette | | | 2019 | | | MD [address] | | | | | | [place], [place] | | | | | | [address] | | | | | | | [...]
--- OUTSIDE RECORDS SUMMARY | ~2019-10-09 | XMS | Encounter Summary ---
Demographics + + + | Address | [address] | | | [place] [address] | + + + | Home Phone [...] + | Author | [facility] | + + + | Organization | [facility] | + + + | Address | Unknown | + + + | Phone | Unavailable | + + + Support + + + + + | Name | Relationship | Address | Phone | + + + + + | Cecile Chowdhury | ECON | [address] | | | | | [place] [address] | | + + + + + Care Team Providers + +------+ + | Care Marine Fireman Name | Role | Phone | + [...] Pharmacy | | | | | | [address] | | | | | | [address] [place], [place] | | | | | | [address] | | | | | | [phone] | | | +--------+ + + + [...] 2020 | Visit | | MD Sidney [address] | | | | | | [address] | | | | | | [place], [place] | | | | | | [address] | | | | | | [phone] | | | | | | | | +--------+---------+ + + + documented as of this encounter Visit Diagnoses Not on filedocumented in this encounter"
--- OUTSIDE RECORDS SUMMARY | ~2019-10-09 | XMS | Encounter Summary ---
Demographics + + + | Address | [address] | | | [place] [address] | + + + | Home Phone | | + + + | Preferred Language | Unknown | + + + | Marital Status | | + + + | Methodist Affiliation | NRP | + + + [...] | | | | [place] [address] | | + + + + + Care Team Providers + +------+ + | Care Photonics Engineering Technician Name | Role | Phone | [...] | | | | | Procedures | [place], [place] | [address] [facility] | | | | | CT NECK SOFT | [address] | [facility] | | | | | TISSUE W | Phone: | [place], [place] | | | | | CONTRAST ME | [phone] | [address] | | | | | CT NECK | Fax: | Phone: | | | | | TISSUE | [phone] | [phone] | | | | | CONTRAST | | Fax: | | | | | | | [phone] | +--------+--------+ + + + + Encounter [...] | | | | [address] | [place], [place] | | | | | Mailcode: [address] | [address] | | | | | [facility] | [phone] | | | | | [place], [place] | | | | | | [address] | | | | | | [phone] | | | +--------+ + + + [...] 2020 | Visit | | MD Sidney [address] [facility] | | | | | | [address] | | | | | | [place], [place] | | | | | | [address] | | | | | | [phone] | | | | | | | [...]
--- OUTSIDE RECORDS SUMMARY | ~2019-10-09 | XMS | Encounter Summary ---
Demographics + + + | Address | [address] | | | [place] [address] | + + + | Home Phone | | + + + | Preferred Language | Unknown | + + + | Marital Status | | + + + | Jew Affiliation | Unknown | + + + | Race | Unknown | + + + | Ethnic Group | Unknown | + + + Author + + + | Author | [facility] | | | and [place] | + + + | Organization | [facility] | | | [...] Team Providers + +------+ + | Care Sustainability Project Coordinator Name | Role | Phone | + +------+ + PCP | Unavailable | + +------+ + Encounter Details +--------+ + + + + | Date | Type | Department | Care Team | Description | +--------+ + + + + | 11/03/ | Hospital | [facility] | | | | 1995 | Encounter | [facility] | | | | | | CENTER [address] | | | | | | [place] | | | | | | [address] | | | | | | [phone] | | | +--------+ + + + [...] [place] | | | | | | [address] | | | | | | | | +--------+ + + + + documented as of this encounter Visit Diagnoses Not on filedocumented in this encounter"
--- OUTSIDE RECORDS SUMMARY | ~2019-10-09 | XMS | Encounter Summary ---
Demographics + + + | Address | [address] | | | [place] [address] | + + + | Home Phone [...] + + + | Author | [facility] | + + + | Organization | [facility] | + + + | Address | Unknown | + + + | Phone | Unavailable | + + + Support + + + + + | Name | Relationship | Address | Phone | + + + + + | Cecile Chowdhury | ECON | [address] | | | | | [place] [address] | | + + + + + Care Team Providers + +------+ + | Care Consumer Lender Name | Role | Phone | + [...] | | | | CONSULT TO | [place], [place] | [address] [place], | | | | | ENT GENERAL | [address] | [place] | | | | | | Phone: | [address] | | | | | | [phone] | Phone: | | | | | | Fax: | [phone] | | | | | | [phone] | Fax: | | | | | | | [phone] | +--------+--------+ + + + + Encounter Details +--------+---------+ + + + | Date | Type | Department | Care Team | Description | +--------+---------+ + + + | 05/29/ | Office | Otolaryngology | Augustine Leal, | Phlegmon (Primary | | 2018 | Visit | Laryngology Services | [address] | Dx); Pharyngeal | | | | at [facility] [address] | [place], [place] | dysphagia; Neck | | | | [address] [place], | [address] | infection | | | | [place] [address] | [phone] | | | | | [phone] | | | +--------+---------+ + + + [...] 05/29/2018 11:00 AM PDTThank you for choosing [facility] Department of Otol[facility]ology for your health care needs. If you need to speak to an ENT physician after normal business hours, please call [phone] and ask to have the ENT phys ician environmental compliance manager paged. documented in this encounter Progress [...] and get back to us shortly. 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 It was also communicated that he should continue to take the antibiotics in the mean time. Pamela Flynn MA - 05/29/2018 11:00 AM PDTlaryngoscopy procedure was performed using the following instrument s: Description #1: laryngoscope Serial ID #1: [id number] Augustine Villar MD - 05/29/2018 11:00 AM PDT PATIENT NAME: Ronni Chowdhury [facility] MR#: [id number] : 1970 REFERRING [place]: [place] [address] PRIMARY CARE PHYSICIAN: Daniel Cannon MD CLINIC: [facility] REASON [...] and symmetric throughout. The pupils are equal. Rubbish Collection Supervisor strength does jessica ear full bilaterally. [...] this time. We discussed these findings at [facility] today. PLAN: It is reasonable to try [...] MD Laryngology Fellow OTOLARYNGOLOGY LARYNGOLOGY SERVICES AT [facility] [address] [place] [phone] documented in this e ncounter Plan of Treatment +--------+---------+ + + + | Date | Type | Specialty | Care Team | Description | +--------+---------+ + + + | 03/19/ | Office | Otolaryngology | Pasquale Moscoso | | | 2020 | Visit | | MD Sidney [address] [facility] | | | | | | [address] | | | | | | [place], [place] | | | | | | [address] | | | | | | [phone] | | | | | | | [...]
--- OUTSIDE RECORDS SUMMARY | ~2019-10-09 | XMS | Encounter Summary ---
Demographics + + + | Address | [address] | | | [place] [address] | + + + | Home Phone | | + + + | Preferred Language | Unknown | + + + | Marital Status | | + + + | Anglican Affiliation | NRP | + + + | Race | White | + + + | Ethnic Group | Not or | + + + Author + + + | Author | [facility] | + + + | Organization | [facility] | + + + | Address | Unknown | + + + | Phone | Unavailable | + + + Support + + + + + | Name | Relationship | Address | Phone | + + + + + | Cecile Chowdhury | ECON | [address] | | | | | [place] [address] | | + + + + + Care Team Providers + +------+ + | Care Otorhinolaryngologist Name | Role | Phone | + [...] [address] | | | | | ([facility]) | [address] | [place], | | | | | Dysphonia | [place], [place] | [place] | | | | | Procedures | [address] | [address] | | | | | REQUEST TO | Phone: | Phone: | | | | | SURGERY | [phone] | [phone] | | | | | OPERATIONS FORESTER | Fax: | Fax: | | | | | NC PART REMV | [phone] | [phone] | | | | | | | | | | | | LARYNX,ANTER | | | | | | | -LAT-VERT | | | | | | | NC REMOVAL | | | | | | | OF LARYNX | | | | | | | NC REMOVAL | | | | | | | NODES, | | | | | | | NECK,CERV | | | | | | | MOD RAD NC | | | | | | | PLACE PERCUT | | | | | | | GASTROSTOMY | | | | | | | TUBE NC | | | | | | | CRICOPHAYNGE | | | | | | | AL MYOTOMY | | | | | | | NC | | | | | | | [...] | | | | CONSULT TO | [place], [place] | [place], | | | | | ENT GENERAL | [address] | [place] | | | | | | Phone: | [phone] | | | | | | [phone] | Phone: | | | | | | Fax: | [phone] | | | | | | [phone] | Fax: | | | | | | | [phone] | +--------+--------+ + + + + Encounter Details +--------+---------+ + + + | Date | Type | Department | Care Team | Description | +--------+---------+ + + + | 01/04/ | Office | Otolaryngology | Pasquale Moscoso | T3N0 SCCa, right | | 2018 | Visit | Laryngology Services | MD [place] [address] | glottis (Primary | | | | at [facility] [address] | [address] | Dx); Dysphonia | | | | [address] [place], | [place], [place] | | | | | [place] [address] | [address] | | | | | [phone] | [phone] | | | | | | | [...] encounter Progress Notes Pasquale Moscoso MD - 01/04/2018 3:30 PM PDT PATIENT: Ronni Chowdhury MR#: [id number] : 1970 REQUESTING PROVIDER: Javier Montaño MD [address] [place] [address] PRIMARY CARE PROVIDER: Daniel Cannon MD CLINIC: [facility] CHIEF COMPLAINT: Chief Complaint Patient presents with New patient consultation Neoplasm Of Larynx HPI: Ronni Chowdhury is a 47 y.o. male who presents to the [facility] for evaluation of head and neck cancer. Mr. Chowdhury has a 6 month history of h oarseness that failed to respond to antibiotics and proton pump inhibitor. He was seen in [facility] by Dr. Castillo and found to have a lesion of the right vocal fold with diminished mo tion, suggesting a T2 lesion. This was confirmed at operation to be a squamous cell carcino ma. A CT scan of the neck and chest showed no sign of regional or distant spread. Mr. Yanna henning was referred initially to the [facility], per notes, but he ended up seeing [...] chemotherapy. 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 His vocal demands are primar chary those [...] Mr. Chowdhury is partnered. 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 He lives in [place] He does have children. He does not have supportive friends or family members in the [facility] area. FAMILY HX: Family History Problem Relation [...] and symmetric throughout. The pupils are equal. Sane Nurse strength does jessica ear full bilaterally. Facial [...] I will forward the information to my housekeeper and laundry assistant to arrange a surgical date and pre-operative evaluation. Pasquale Moscoso M.D. 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
--- OUTSIDE RECORDS SUMMARY | ~2019-10-09 | XMS | Encounter Summary ---
Demographics + + + | Address | [address] | | | [place] [address] | + + + | Home Phone | | + + + | Preferred Language | Unknown | + + + | Marital Status | | + + + | Episcopal Affiliation | Unknown | + + + | Race | Unknown | + + + | Ethnic Group | Unknown | + + + Author + + + | Author | [facility] | | | and [place] | + + + | Organization | [facility] | | [...] Providers + +------+ + | Care Vest Finisher Name | Role | Phone | + [...] + + | 08/03/ | Hospital | [facility] | Naida Burnette | Malignant neoplasm | | 2018 | Encounter | MED CTR RADIATION | MD Brad [address] | of glottis (HCC) | | | | ONCOLOGY CLINIC [address] | [place], [place] | (Primary Dx) | | | | [address] | [address] | | | | | [place] [address] | | | | | | [phone] | | | +--------+ + + + [...] | | | | | | [place], [place] | | | | | | [address] | | | | | | | [...]
--- OUTSIDE RECORDS SUMMARY | ~2019-10-09 | XMS | Clinical Summary ---
Demographics + + + | Address | [address] | | | [place] [address] | + + + | Home Phone | | + + + | Preferred Language | Unknown | + + + | Marital Status | | + + + | Episcopalian Affiliation | Unknown | + + + | Race | Unknown | + + + | Ethnic Group | Unknown | + + + Author + + + | Author | [facility] | | | and [place] | + + + | Organization | [facility] | | | [...] Team Providers + +------+ + | Care Byproducts Operator Name | Role | Phone | + +------+ + | Daniel Cannon MD | PCP | | + +------+ + Allergies No Known Allergies Medications + + + +---------+------+------+-------+ | Medication | Sig | Dispensed | Refills | Star | End | Statu | | | | | | t | Date | s | | | | | | Date | | | + + + +---------+------+------+-------+ | PROAIR HFA 108 (90 | inhale 2 puffs by | 8.5 g | 6 | 07/1 | | Activ | | BASE) MCG/ACT | mouth INTO THE LUNGS | | | 5/20 | | e | | inhaler | EVERY 4 HOURS | | | 15 | | | | | NEEDED FOR WHEEZING | | | | | | + + + +---------+------+------+-------+ +---+ + | | Additional | | | informationPatient | | | not taking. Reported | | | on 07/02/2019 10:20 | | | AM | +---+ + + + + +----+------+---+-------+ | ADVAIR DISKUS | inhale 1 puff by | 60 each | 11 | 04/16 | | Activ | | 500-50 MCG/DOSE | mouth INTO THE LUNGS | | | 03/05 | | e | | diskus inhaler | 2 TIMES DAILY | | | 15 | | | + + + +----+------+---+-------+ +---+ + | | Additional | | | informationPatient | | | not taking. Reported | | | on 09/21/2018 10:00 | | | AM | +---+ + + + + +---+------+---+-------+ | amLODIPine | Take by mouth | | 0 | 04/0 | | Activ | | (NORVASC) 10 MG | Daily. | | | 9/20 | | e | | tablet | | | | 18 | | | + + + +---+------+---+-------+ | gabapentin | Take by mouth 3 | | 0 | 09/0 | | Activ | | (NEURONTIN) 300 mg | times daily as | | | 5/20 | | e | | capsule | needed. | | | 18 | | | + + + +---+------+---+-------+ | sildenafil | Take 100 mg by mouth | | 0 | | | Activ | | (VIAGRA) 100 MG | as needed for | | | | | e | | tablet | Erectile | | | | | | | | Dysfunction. Take 1 | | | | | | | | tablet by mouth | | | | | | | | daily 1 hour before | | | | | | | | if needed. | | | | | | + + + +---+------+---+-------+ | | Swish and swallow 5 | 250 mL | 3 | 11/0 | | Activ | | diphenhydrAMINE-lido | mLs every 4 hours as | | | 1/20 | | e | | tiara-aluminum & | needed for Pain. | | | 18 | | | | magnesium | (RECIPE = 1:1:1 | | | | | | | hydroxide-simethicon | mixture of Maalox, | | | | | | | e (MAGIC MOUTHWASH) | diphenhydrAMINE, | | | | | | | | viscous lidocaine) | | | | | | + + + +---+------+---+-------+ +---+ + | | Additional | | | informationPatient | | | not taking. Reported | | | on 09/21/2018 10:00 | | | AM | +---+ + + + +---+---+------+---+-------+ | acetaminophen | Take 1 tablet by | | 0 | 09/0 | | Activ | | (TYLENOL) 500 mg | mouth. 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/2018 | + + + | Pharyngeal dysphagia | 02/07/2018 | + + + | Malignant neoplasm of glottis | 01/05/2018 | + + + + + | Cancer Staging: Pathologic: Stage DALY (pT4a, pN0, cM0) - | | Unsigned | + + + + + | Dysphonia | 01/05/2018 | + + + | Allergic rhinitis | 04/25/2014 | + + + | Tobacco abuse | 02/17/2012 | + + + | Asthma | 02/08/2012 | + + + Resolved Problems + + + + | Problem | Noted | Resolved | | | Date | Date | + + + + | Heartburn | 04/25/20 | | | | 14 | 5 | + + + + | Other nonspecific abnormal finding of lung field | 02/17/20 | | | | 12 | 5 | + + + + Immunizations + + + + | Name | Administration Dates | Next Due | + + + + | INFLUENZA PF 18 Y OR | 07/17/2013, 09/18/2012 | | | >,TRIVALENT | | | | RECOMBINANT | | | + + + + | INFLUENZA PF | 11/07/2014 | | | QUAD(PED/ADOL/ADULT) | | | | ,PSKT or VIAL | | | + + + + | INFLUENZA PF | 07/17/2013 | | | TRIVALENT(PED/ADOL/A | | | | DULT), PSKT | | | + + + + | INFLUENZA, | 07/17/2013 | | | UNSPECIFIED | | | | FORMULATION | | | + + + + | PNEUMOCOCCAL | 04/25/2014 | | | POLYSACCHARIDE | | | | 23-VALENT (PPSV23) | | | + + + + | TDAP, (ADOL/ADULT) | 07/03/2012 | | + + + + Family History + + +------+ + | Medical History | Relation | Name | Comments | + + +------+ + | Cancer | Other | | Maternal grandmother~Bladder | + + +------+ + | Cancer | Paternal | | lung | | | Uncle | | | + + +------+ + | Cancer | Paternal | | lung | | | Uncle | | | + + +------+ + | Cancer | Paternal | | lung | | | Uncle | | | + + +------+ + + +------+ + + | Relation | Name | Status | Comments | + +------+ + + | Brother | | Alive | healthy | + +------+ + + | Brother | | Alive | healthy | + +------+ + + | Daughter | | Alive | healthy | + +------+ + + | Daughter | | Alive | healthy | + +------+ + + | Daughter | | Alive | healthy | + +------+ + + | Father | | Alive | healthy | + +------+ + + | Mother | | | halthy | + +------+ + + | Other | | | | + +------+ + + | Paternal Uncle | | | | + +------+ + + | Paternal Uncle | | | | + +------+ + + | Paternal Uncle | | | | + +------+ + + | Sister | | Alive | healthy | + +------+ + + | Sister | | Alive | healthy | + +------+ + + Social History + + + [...] | Weight | 97.4 kg (214 lb 12.8 | 04/04/2019 2:26 PM | | | | oz) | PDT | | + + + + + | Height | 188 cm (6' 2.02") | 07/19/2018 12:34 PM | | | | | PDT | | + + + + + | Body Mass Index | 27.57 | 07/19/2018 12:34 PM | | | | | PDT | | + + + + + Plan of Treatment +--------+ + + + + | Date | Type | Specialty | Care Team | Description | +--------+ + + + + | 01/01/ | Appointment | Radiation Oncology | Naida Burnette | | | 2019 | | | MD [address] | | | | | | [place], [place] | | | | | | [address] | | | | | | | | +--------+ + + + + + + + + + | Health Maintenance | Due Date | Last Done | Comments | + + + + + | Vaccine: | | 04/25/2014 | | | Pneumococcal 19-64 | 5 | | | | (2 of 3 - PCV13) | | | | + + + + + | Vaccine: Influenza | | 11/07/2014, 07/17/2013, | | | (#1) | 9 | 07/17/2013, Additional history | | | | | exists | | + + + + + | Vaccine: | | 07/03/2012 | | | Dtap/Tdap/Td (2 - | 2 | | | | Td) | | | | + + + + + Results Not on filefrom Last 3 Months Insurance + +--------+ +--------+ +---------+------+ | Payer | Benefi | Subscriber | Effect | Phone | Address | Type | | | t Plan | ID | anika | | | | | | / | | Dates | | | | | | Group | | | | | | + +--------+ +--------+ +---------+------+ | [employer] | [place] | [id number] | 11/17/19 | [phone] | | PPO | | WORKERS | SHEET | | 17-Pre | 3 | | | | | METAL | | sent | | | | | | WORKER | | | | | | | | S | | | | | | | | [employer] | | | | | | | | PPO | | | | | | + +--------+ +--------+ +---------+------+ + +--------+ +--------+ + + | Guarantor Name | Accoun | Relation to | Date | Phone | Billing Address | | | t Type | Patient | of | | | | | | | | | | + +--------+ +--------+ + + | Ronni Chowdhury | Person | Self | [birth year] | [address] | | | al/Fam | | 1971 | [phone] | [place] | | | chary | | | 0 (Home) | [address] | | | | | | [phone] | | | | | | | 1 (Work) | | + +--------+ +--------+ + + Advance Directives + + + + + | Type | Date Recorded | Patient | Explanation | | | | Cost Consultant | | + + + + + | Power of | | | | | Training Consultant | | | | + + + + + | Advance | | | | | Directive | | | | + + + + +
--- OUTSIDE RECORDS SUMMARY | ~2019-10-09 | XMS | Encounter Summary ---
Demographics + + + | Address | [address] | | | [place] [address] | + + + | Home Phone | | + + + | Preferred Language | Unknown | + + + | Marital Status | | + + + | Evangelical Affiliation | NRP | + + + | Race | White | + + + | Ethnic Group | Not or | + + + Author + + + | Author | [facility] | + + + | Organization | [facility] | + + + | Address | Unknown | + + + | Phone | Unavailable | + + + Support + + + + + | Name | Relationship | Address | Phone | + + + + + | Cecile Chowdhury | ECON | [address] | | | | | [place] [address] | | + + + + + Care Team Providers + +------+ + | Care Fruit Picker Name | Role | Phone | + [...] Event | [address] | MD Sidney [address] | | | | | [place] [facility] | [address] | | | | | Hospital Admitting | [place], [place] | | | | | Desk Located on the | [address] | | | | | 9th floor | [phone] | | | | | [place], [place] | | | | | | [address] | Nelli Soliman | | | | | | MD [place] [address] | | | | | | [address] [place] | | | | | | [place], [place] | | | | | | [address] | | | | | | [phone] | | | | | | | | +--------+ + + + + Anesthesia Record + + + + + | Procedure Name | Responsible | Anesthesia Start | Anesthesia Stop Time | | | Anesthesiologist | Time | | + + + + + | RIGHT DIRECT | Vernoica Little Kristie, | 01/16/18 0830 | 01/16/18 440 | | MICROLARYNGOSCOPY; | MD | | [...] | Visit | | MD Sidney [address] [facility] | | | | | | [address] | | | | | | [place], [place] | | | | | | [address] | | | | | | [phone] | | | | | | | [...]
--- OUTSIDE RECORDS SUMMARY | ~2019-10-09 | XMS | Encounter Summary ---
Demographics + + + | Address | [address] | | | [place] [address] | + + + | Home Phone | | + + + | Preferred Language | Unknown | + + + | Marital Status | | + + + | Shinto Affiliation | NRP | + + + | Race | White | + + + | Ethnic Group | Not or | + + + Author + + + | Author | [facility] | + + + | Organization | [facility] | + + + | Address | Unknown | + + + | Phone | Unavailable | + + + Support + + + + + | Name | Relationship | Address | Phone | + + + + + | Cecile Chowdhury | ECON | [address] | | | | | [place] [address] | | + + + + + Care Team Providers + +------+ + | Care Inspector Finishing Name | Role | Phone | + +------+ + | Daniel Cannon MD | PCP | | + +------+ + Encounter Details +--------+ + + + + | Date | Type | Department | Care Team | Description | +--------+ + + + + | 05/26/ | Procedure | Diagnostic Imaging | | | | 2018 | Pass | Services at [facility] | | | | | | [address] | | | | | | [place] Mailcode: | | | | | | [address] [facility] | | | | | | [place], [place] | | | | | | [address] | | | | | | [phone] | | | +--------+ + + + [...] 2020 | Visit | | MD Sidney [address] [facility] | | | | | | [address] | | | | | | [place], [place] | | | | | | [address] | | | | | | [phone] | | | | | | | | +--------+---------+ + + + documented as of this encounter Visit Diagnoses Not on filedocumented in this encounter"
--- OUTSIDE RECORDS SUMMARY | ~2019-10-09 | XMS | Encounter Summary ---
Demographics + + + | Address | [address] | | | [place] [address] | + + + | Home Phone | | + + + | Preferred Language | Unknown | + + + | Marital Status | | + + + | Jainism Affiliation | NRP | + + + [...] | | | | [place] [address] | | + + + + + Care Team Providers + +------+ + | Care Event Av Operator Name | Role | Phone | [...] Visit | [facility]-SUSTAINABILITY ANALYST [address] | Dx); T3N0 SCCa, | | | | Swallowing at [facility] | [address] | right glottis; | | | | [address] | [place] [address] | Pharyngeal dysphagia | | | | Mailcode: [id number] | [phone] | | | | | [facility] | | | | | | and [place], | | | | | | Building | | | | | | Floor [place], [place] | | | | | | [address] | | | | | | [phone] | | | +--------+---------+ + + + [...] of this encounter Progress Notes Jonna Moreno CCC-SUSTAINABILITY ANALYST - 05/17/2018 10:00 AM PDT VOICE EVALUATION CLINIC: [facility] CLINIC DATE: [...] Dr. Pasquale Moscoso who returned to the [facility] for 3-month [...] perturbation measures, which were completed using the [employer] Advanced program. Maximum phonation time = 10 [...] patient regarding smoking cessation. Jonna Moreno M.S., CCC-SUSTAINABILITY ANALYST Speech-Language Pathologist [facility] Department of Otolaryngology [address] [place] [address] Appointments: documented in this encounter Plan of Treatment +--------+---------+ + + + | Date | Type | Specialty | Care Team | Description | +--------+---------+ + + + | 03/19/ | Office | Otolaryngology | Pasquale Moscoso | | | 2019 | Visit | | MD Sidney [address] [place] [address] | | | | | | [facility] | | | | | | [place], [place] | | | | | | [address] | | | | | | [phone] | | | | | | | | +--------+---------+ + + + documented as of this encounter Procedures + +--------+ + + + | Procedure Name | Priori | Date/Time | Associated Diagnosis | Comments | | | ty | | | | + +--------+ + + + | [facility] | Routin | 05/17/2018 | Dysphonia T3N0 | | | QUALITATIVE ANALYSIS | e | 12:41 PM | SCCa, right glottis | | | OF VOICE AND | | PDT | Pharyngeal | | | RESONANCE | | | dysphagia | | + +--------+ + + + | AL | Routin | 05/17/2018 | Dysphonia T3N0 [...]
--- OUTSIDE RECORDS SUMMARY | ~2019-10-09 | XMS | Encounter Summary ---
Demographics + + + | Address | [address] | | | [place] [address] | + + + | Home Phone [...] | | | | [place] [address] | | + + + + + Care Team Providers + +------+ + | Care Blood Bank Assistant Name | Role | Phone | [...] [address] | | | | | | [place] | | | | | | [address] | | | | | | [phone] | | | | | | | | +--------+---------+ + + + documented as of this encounter Visit Diagnoses Not on filedocumented in this encounter"
--- OUTSIDE RECORDS SUMMARY | ~2019-10-09 | XMS | Encounter Summary ---
Demographics + + + | Address | [address] | | | [place] [address] | + + + | Home Phone [...] Team Providers + +------+ + | Care Circuit Breaker Assembler Name | Role | Phone | + +------+ + | Daniel Cannon MD | PCP | | + +------+ + Encounter Details +--------+ + + + + | Date | Type | Department | Care Team | Description | +--------+ + + + + | 09/04/ | Orders Only | [facility] | Naida Burnette | | | 2017 | | [facility] | MD Brad [address] | | | | | [facility] [address] | [place] | | | | | [address] [place] | [address] | | | | | [place] [address] | | | | | | [phone] | | | +--------+ + + + [...] [place] | | | | | | [id number] | | | | | | | | +--------+ + + + + documented as of this encounter Visit Diagnoses Not on filedocumented in this encounter"
--- OUTSIDE RECORDS SUMMARY | ~2019-10-09 | XMS | Encounter Summary ---
Demographics + + + | Address | [address] | | | [place] [address] | + + + | Home Phone [...] | | | | [place] [address] | | + + + + + Care Team Providers + +------+ + | Care Test Puller Name | Role | Phone | + +------+ + | Daniel Cannon MD | PCP | | + +------+ + Encounter Details +--------+ + + + + | Date | Type | Department | Care Team | Description | +--------+ + + + + | 05/30/ | Telephone | Otolaryngology | Pasquale Moscoso | | | 2017 | | Laryngology Services | MD [place] [address] | | | | | at [facility] [address] | | | | | [place], | [place], [place] | | | | | [place] [address] | [address] | | | | | [phone] | [phone] | | | | | | | [...] [address] | | | | | | [place] | | | | | | [address] | | | | | | [phone] | | | | | | | | +--------+---------+ + + + documented as of this encounter Visit Diagnoses Not on filedocumented in this encounter"
--- OUTSIDE RECORDS SUMMARY | ~2019-10-09 | XMS | Encounter Summary ---
Demographics + + + | Address | [address] | | | [place] [address] | + + + | Home Phone | | + + + | Preferred Language | Unknown | + + + | Marital Status | | + + + | Quaker Affiliation | Unknown | + + + | Race | Unknown | + + + | Ethnic Group | Unknown | + + + Author + + + | Author | [facility] | | | and [place] | + + + | Organization | [facility] | | | [...] Team Providers + +------+ + | Care Monumental Stonemason Name | Role | Phone | + [...] Dominguez MD | | | | | [place], | | | | | | [place] [address] | | | | | | [phone] | | | +--------+--------+ + + + [...] | | | | | [address] [facility] [place] | | | | | | [id number] | | | | | | | | +--------+ + + + + documented as of this encounter Visit Diagnoses Not on filedocumented in this encounter"
--- OUTSIDE RECORDS SUMMARY | ~2019-10-09 | XMS | Encounter Summary ---
Demographics + + + | Address | [address] | | | [place] [address] | + + + | Home Phone [...] | | | | [place] [address] | | + + + + + Care Team Providers + +------+ + | Care Pulp Making Plant Operator Name | Role | Phone | [...] [address] | | | | | [place] NEW | [facility] | Ave | | | | | PATIENT | ENT [address] | [place], [place] | | | | | [place] | [address] | [address] | | | | | EST PATIENT | [place], | Phone: | | | | | [place] | [place] [address] | [phone] | | | | | | Phone: | Fax: | | | | | | [phone] | [phone] | | | | | | Fax: | | | | | | | [phone] | | +--------+--------+ + + + + Encounter Details +--------+---------+ + + + | Date | Type | Department | Care Team | Description | +--------+---------+ + + + | 12/26/ | Office | Hematology/Medical | Javier Montaño, | Cancer of larynx | | 2018 | Visit | Oncology at Center | MD [address] | ([facility]) (Primary Dx) | | | | for Health [facility] Healing | [place], [place] | | | | | [address] | [address] | | | | | Mailcode: [place] | [phone] | | | | | for Health and | | | | | | Healing, [address] | | | | | | [place], [place] | | | | | | [address] | | | | | | [phone] | | | +--------+---------+ + + + [...] of cold had resolved. He consulted his [facility] physician who referred him to a local ENT surgeon. The patient was seen by Dr. Colt Joyce at [place] in [facility] and [...] a result the patient was referred to [facility] for definitive management of hi s [...] , lives at home with his in [place], [place]. He is a lifelong smoker. He started smoking at age 14, continues to smoke until today. On , he smokes 1 pack a day, although he reports he tried to quit smoking multiple times w ith little success. 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 [...] 50% of my time was spent in clij-kp-egho counseling with the patient, as well as co ordination of care. Javier Montaño MD SAMIA/MODL /[id number] signed by Javier Montaño MD at 12/29/2017 12:55 PM PDTdocumented in this encounter Plan of Treatment +--------+---------+ + + + | Date | Type | Specialty | Care Team | Description | +--------+---------+ + + + | 03/19/ | Office | Otolaryngology | Pasquale Moscoso | | | 2020 | Visit | | MD [place] [address] [facility] | | | | | | [address] | | | | | | [place], [place] | | | | | | [address] | | | | | | [phone] | | | | | | | | +--------+---------+ + + + documented as of this encounter Visit Diagnoses + + | Diagnosis | + + | 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
--- OUTSIDE RECORDS SUMMARY | ~2019-10-09 | XMS | Encounter Summary ---
Demographics + + + | Address | [address] | | | [place] [address] | + + + | Home Phone | | + + + | Preferred Language | Unknown | + + + | Marital Status | | + + + | Hinduism Affiliation | Unknown | + + + [...] Phone | + + +---------+ + | eCcile Chowdhury | ECON | Unknown | | + + +---------+ + Care Team Providers + +------+ + | Care Customer Support Analyst Name | Role | Phone | [...] [address] | | | | | Malignant | Naida M, | [address] [place] | | | | | neoplasm of | MD [address] | [place], | | | | | glottis | [address] | [place] [address] | | | | | (HCC) | [place], | Phone: | | | | | Procedures | [place] [address] | [phone] | | | | | CT Soft | Phone: | Fax: | | | | | Tissue Neck | [phone] | [phone] | | | | | w Contrast | Fax: | | | | | | | [phone] | | +--------+--------+ + + + + [...] [address] | | | | | Malignant | Naida M, | [place] | | | | | neoplasm of | MD [address] | [place], | | | | | glottis | [address] | [place] [address] | | | | | (HCC) | [place], | Phone: | | | | | Procedures | [place] [address] | [phone] | | | | | CT Soft | Phone: | Fax: | | | | | Tissue Neck | [phone] | [phone] | | | | | w Contrast | Fax: | | | | | | | [phone] | | +--------+--------+ + + + + Encounter Details +--------+ + + + + | Date | Type | Department | Care Team | Description | +--------+ + + + + | 12/27/ | Hospital | [facility] | Naida Burnette | Malignant neoplasm | | 2019 | Encounter | MED CTR [address] | MD Brad [address] | of glottis (HCC) | | | | [place], | [place], [place] | | | | | [place] [address] | [address] | | | | | [phone] | | | +--------+ + + + [...] [place] | | | | | | [address] | | | | | | | | +--------+ + + + + documented as of this encounter Procedures + +--------+ + + + | Procedure Name | Priori | Date/Time | Associated Diagnosis | Comments | | | ty | | | | + +--------+ + + + | CT SOFT TISSUE NECK | Routin | 12/27/2018 | Malignant neoplasm | Results for this | | W CONTRAST | e | 10:12 AM | of glottis (HCC) | procedure are in the | | | | PDT | | results section. | + +--------+ + + + documented in this encounter Results CT Soft Tissue Neck w Contrast (12/27/2018 10:12 AM PDT) + + | Specimen | + + | | + + + + + | Narrative | Performed At | + + + | TECHNIQUE: After administration of 75 mL Omnipaque 350 | [facility] | | intravenously, axial CT imaging was obtained through the neck with | | | coronal and sagittal reformats. CLINICAL INFORMATION: larynx | | | cancer COMPARISON: CT dated 12/15/2017 and 07/21/2018. PET CT | | | 06/15/2018 FINDINGS: Visualized brain: No focal abnormality | | | appreciated. Orbits: Unremarkable. Paranasal sinuses: Minimal | | | maxillary and mild scattered ethmoid sinus disease. Bones: No | | | acute osseous abnormality. No osteoblastic or osteolytic lesion. | | | Reversal of the normal cervical lordotic curvature. Moderate | | | degenerative disc disease at C5-C6 and C6-C7. Mild degenerative | | | disc disease at C4-C5 and C7-T1. Nasopharynx: No asymmetric soft | | | tissue or evidence to suggest a mass lesion. Suprahyoid neck: Normal | | | oropharynx, oral cavity, parapharyngeal space, and retropharyngeal | | | space. Infrahyoid neck: There is poorly marginated soft tissue | | | prominence at the left piriform sinus extending inferiorly into the | | | left aspect of the larynx with more focal asymmetric soft tissue | | | nodularity between the true and false vocal cords. This entire area | | | measures approximately 2.9 cm in the craniocaudal dimension and up to | | | 1.2 x 1.1 cm in the axial dimension. The previously described | | | somewhat ill-defined soft tissue at the right neck base has | | | significantly decreased in size and measures up to 10 x 7 mm. Lymph | | | nodes: No lymphadenopathy. Thyroid: Unremarkable. Thoracic inlet: | | | Emphysematous changes are noted at the lung apices. Vascular | | | structures: Unremarkable. IMPRESSION - Significant interval | | | decreased size of the previously described hypermetabolic soft tissue | | | at the right neck base, currently measuring up to 10 mm. | | | Asymmetric soft tissue prominence at the left piriform sinus with | | | inferior extension into soft tissue nodularity between the left true | | | and false vocal cords. This may represent new or recurrent | | | malignancy. Consider MRI and/or laryngoscopy for further | | | assessment. Dictated and Signed by: Anselmo Marie MD | | | Electronically signed: 12/27/2018 3:31 PM | | + + + + + | Procedure Note | + + | Tio, Rad Results In - 12/27/2018 3:34 PM PDT | | TECHNIQUE: After administration of 75 mL Omnipaque 350 intravenously, axial CT | | imaging was obtained through the neck with coronal and sagittal reformats. | | | | CLINICAL INFORMATION: larynx cancer | | | | COMPARISON: CT dated 12/15/2017 and 07/21/2018. PET CT 06/15/2018 | | | | FINDINGS: | | Visualized brain: No focal abnormality appreciated. | | | | Orbits: Unremarkable. | | | | Paranasal sinuses: Minimal maxillary and mild scattered ethmoid sinus disease. | | | | Bones: No acute osseous abnormality. No osteoblastic or osteolytic lesion. | | Reversal of the normal cervical lordotic curvature. Moderate degenerative disc | | disease at C5-C6 and C6-C7. Mild degenerative disc disease at C4-C5 and C7-T1. | | | | Nasopharynx: No asymmetric soft tissue or evidence to suggest a mass lesion. | | Suprahyoid neck: Normal oropharynx, oral cavity, parapharyngeal space, and | | retropharyngeal space. | | Infrahyoid neck: There is poorly marginated soft tissue prominence at the left | | piriform sinus extending inferiorly into the left aspect of the larynx with more | | focal asymmetric soft tissue nodularity between the true and false vocal cords. | | This entire area measures approximately 2.9 cm in the craniocaudal dimension and | | up to 1.2 x 1.1 cm in the axial dimension. The previously described somewhat | | ill-defined soft tissue at the right neck base has significantly decreased in | | size and measures up to 10 x 7 mm. | | Lymph nodes: No lymphadenopathy. | | Thyroid: Unremarkable. | | Thoracic inlet: Emphysematous changes are noted at the lung apices. | | Vascular structures: Unremarkable. | | | | | | IMPRESSION - | | Significant interval decreased size of the previously described hypermetabolic | | soft tissue at the right neck base, currently measuring up to 10 mm. | | | | Asymmetric soft tissue prominence at the left piriform sinus with inferior | | extension into soft tissue nodularity between the left true and false vocal | | cords. This may represent new or recurrent malignancy. Consider MRI and/or | | laryngoscopy for further assessment. | | | | | | Dictated and Signed by: Anselmo Marie MD | | Electronically signed: 12/27/2018 3:31 PM | + + + +---------+ + [...] iohexol (OMNIPAQUE 350) 350 | Given | 12/28/19 | 75 mLs | | | | mg/mL injection 75 mL 75 mL, | | 19 10:10 | | | | | Intravenous, ONCE PRN, Other, for | | AM PDT | | | | | imaging CT study, Starting Wed | | | | | | | 12/27/18 at 1015, For 1 dose, | | | | | | | Radiology | | | | | | + +--------+ +--------+------+------+ +---+---+ | | | +---+---+ documented in this encounter"
--- OUTSIDE RECORDS SUMMARY | ~2019-10-09 | XMS | Encounter Summary ---
Demographics + + + | Address | [address] | | | [place] [address] | + + + | Home Phone | | + + + | Preferred Language | Unknown | + + + | Marital Status | | + + + | Mosque Affiliation | NRP | + + + [...] | | | | [place] [address] | | + + + + + Care Team Providers + +------+ + | Care Lumpia Wrapper Maker Name | Role | Phone | + +------+ + | Daniel Cnanon MD | PCP | | + +------+ [...] + + + + | 01/16/ | Hospital | [facility] [address] | Pasquale Moscoso | | | 2018 - | Encounter | [place] Mailcode: | MD [place] [address] [facility] | | | | | [id number] | [address] | | | 01/23/ | | Ron Badger, | [place], [place] | | | 2018 | | [place] [address] | [address] | | | | | [phone] | [phone] | | | | | | | [...] chronic pain (close follow up with his [facility] doctor). The patient had stable respiratory status on 3 Liters of supplement O2 (provided at [facility]). The patient was evaluated by speech language [...] when in direct sunli ght [facility] [place] your teeth as you would normally, but try not to stretch the lips as you brush. It is important to use the Peridex (chlorhexidine gluconate) or equivalent mouthrinse twice per d ay until you see your doctor back in the clinic. TRACH CARE: If your trach comes out and you have difficulty breathing call 911 or proceed to the [facility] ER immediately. If the trach is [...] any additional questions or concerns. Call the [facility] at [phone] for difficulty breathing or unusual shortness of breath , excessive bleeding, drainage at the operative site, fevers, chills, increased pain that is not relieved by pain medications, persistent nausea or vomit ing. FOLLOW-UP: 02/06/2018 10:00 AM Steven GONZALEZ Otolaryngoangel 02/06/2018 11:30 AM Pasquale Moscoso MD ENTCHERYL Otolaryngoangel HOW TO REACH US: Tuesday- Tuesday from 8:00am to 4:30pm, call the Otolaryngology clinic at [phone]. After hours, weekends, and holidays, call the [facility] turbo electric operator at [phone] and as k to have the ENT doctor on-call paged Future Appointments Date Time Provider Department Center 02/06/2018 10:00 AM Steven GONZALEZ Otolarynmarcelle 02/06/2018 11:30 AM Pasquale Moscoso MD ENTLADemario Otolaryngoangel Consults obtained:PT/OT, ENT ENDOCRINOLOGY PHYSICIAN, nutrition, Respiratory tool and production planner Pertinent imaging:In [facility] Pertinent labs: CBC with diff last 72 hours (or 3 results) Recent Labs 01/21/18 0526 01/22/186 01/23/183 WBC 13.70* 12.04* 11.74* HB 10.8* 11.2* 11.5* HCT 32.9* 34.3* 35.2* PLT 235 284 356 Chemistries: Last 72 Hours (or 3 results): Recent Labs 01/21/18 0526 01/22/18 0446 01/23/18 0443 NA 139 139 143 K 3.9 3.7 [...] and Neck Surgery Mail Code [address] [place] [address] Pager [phone] Consult/Night/Weekend Pager: [phone] documented in this encounter Discharge Instructions Instructions [...] while you go through treatment. Call the [facility] [facility] [employer] [facility] ( ) or visit [...] concerns with your doctor, counselor, or other [facility] professional. If you are vomiting or have [...] Neck Cancer: Care Instructions", log into your [employer] accoun t at [email or web address]. You can enter I202 in the "[employer] Library" search box. Not on [employer]? Review the [employer] section of your After Visit Summary for directions on ho w to sign up. Current as of: February 25, 2017 Content Version: 11.5 4682-6514 [employer]. Care instructions adapted under license by [facility]. If you have questions about a medical condition or this instr uction, always ask your healthcare professional. [employer] disclaims any carlos anty or liability for [...] or dog food bags, or a vacuum cell cleaner. ? Ask your doctor when you [...] doctor if you can take an o ulk-lrm-mqucjdj medicine. ? If you think your pain [...] to Expect at Home", log into your [employer] account a t [email or web address]. You can enter I060 in the "[employer] Library" search box. Not on [employer]? Review the [employer] section of your After Visit Summary for directions on red w to sign up. Current as of: February 25, 2017 Content Version: 11.5 7539-7894 [employer]. Care instructions adapted under license by [facility]. If you have questions about a medical condition or this instr uction, always ask your healthcare professional. [employer], [facility] disclaims any carlos anty or liability for [...] Harm Reduction Plan. Flesh this out by milad hawley where and under what circumstances you will [...] sober up day--on purpose. 2.6 Avoiding The Eye-Senior Software Tester If you sometimes tend to drink the morning after then it is good to have a plan to avoid th e eye-stratigrapher. One thing which can help is to [...] Will f/u post DC. Steven Vidal, PhD, CCC-ENDOCRINOLOGY PHYSICIAN [facility] Dept. of Otolaryngology, PV- [address] [place] [address] [facility] Ronni Borjas MD - 01/22/2018 9:18 AM PDTFormatting of this note might be different fr om the original. Head and Neck Surgery Inpatient Daily Progress Note: Date: 01/22/2018 Primary Care Provider: Daniel Cannon MD Admission Date: 01/16/2018 RONNI MAHMOOD, [id number] Hospital Day #6 SUBJECTIVE INTERVAL EVENTS: -overnight [...] compression dressing day prior to discharge -ENT ENDOCRINOLOGY PHYSICIAN to follow for communication and spitting trials -Peridex for oral care #Trach care: -Continue 6cfs trach -RT DC logistics planner following for trach supplies -ENT ENDOCRINOLOGY PHYSICIAN working with pt spitting trials #FEN/GI -Follow [...] PGY-3 Otolaryngology/ Head & Neck Surgery Pager [phone] Associated attestation - Casper Wright MD - 01/22/2018 10:08 AM PDT PATIENT NAME: Ronni Mahmood MR#: [id number] : 1970 PRIMARY CARE PROVIDER: Daniel Cannon [...] periods of aphonia. Speech was without dysarthria [facility]. DIETARY STATUS: PEG for all nutrition/hydration/medication. Prior [...] Protocol and communication needs. May Newsome MS, CF-ENDOCRINOLOGY PHYSICIAN Speech-Language Pathology Fellow [facility] Otolaryngology, Head and Neck Surgery [facility] [phone] Callum Tran MD - 8:17 AM PDT Head and Neck Surgery Inpatient Daily Progress Note: Date: 01/21/2018 Primary Care Provider: Daniel Cannon MD Admission Date: 01/16/2018 RONNI MAHMOOD, [id number] Hospital Day #5 SUBJECTIVE INTERVAL EVENTS: -No [...] Reviewed: lytes unremarkable, WBC downtrending Recent Labs 01/19/1850901/20/1851301/21/18 05 NA 135* 135* 139 K 3.8 4.1 3.9 CL 100 101 104 BICARB 27 28 30 BUN 8 9 11 CR 0.76 0.83 0.81 GLU 103* 114* 135* CA 8.6 8.7 8.5* Recent Labs 01/19/1850901/20/1814 01/21/18 0526 MG 2.2 2.2 2.5 Recent [...] to bulb suction, please place to LCIWS, gurpreet ile pt ambulating please leave the neck drain cap out especially the neck drain that is not holding onto bulb suction (discussed with the nursing staff and placed on nursing communicat ion). -Will remove compression dressing day prior to discharge -ENT ENDOCRINOLOGY PHYSICIAN to follow for communication and spitting trials -Peridex for oral care #Trach care: -Continue 6cfs trach -RT DC logistics planner following for trach supplies -ENT ENDOCRINOLOGY PHYSICIAN working with pt spitting trials #FEN/GI -Follow [...] Oconnell MD R4 Otolaryngology-Head and Neck Surgery [facility] Pager [phone] Associated attestation - Casper Wright MD - 01/22/2018 8:03 AM PDT PATIENT NAME: Ronni Mahmood [facility] MR#: [id number] : 1970 PRIMARY CARE PROVIDER: Daniel Cannon MD I have reviewed the resident's note for this day's hospitalization and I have examined Mr. Mahmood. ASSESSMENT: Mr. Mahmood remains hospitalized for postoperative care. PLAN: I agree with the resident's findings, assessment, and plans as outlined. Casper Wright MD, FACS Otolaryngology-Head & Neck Surgery Ruth Marinelli, ENDOCRINOLOGY PHYSICIAN - 01/20/2018 3:43 PM PDTFormatting of this [...] periods of aphonia. Speech was without dysarthria [facility] [facility]. DIETARY STATUS: PEG for all nutrition/hydration/medication. Prior [...] Protocol and communication needs. Ruth Marinelli, Ph.D., [facility]-ENDOCRINOLOGY PHYSICIAN Head Of Ethics And Compliance Director, [facility] Otolaryngology, Head and Neck Surgery [facility] [place] [phone] Lamin Pruitt PA -C - 01/20/2018 9:38 AM PDT DOS: 01/19/2018 Head and Neck Surgery Inpatient Daily Progress Note: Primary Care Provider: Daniel Cannon MD Admission Date: 01/16/2018 RONNI MAHMOOD, [id number] Hospital Day #4 SUBJECTIVE INTERVAL EVENTS: -No [...] compression dressing during the trach change -ENT ENDOCRINOLOGY PHYSICIAN to follow for communication and spitting trials -Peridex for oral care #Trach care: -Downsize trach on Tuesday to a 6 cfs today -RT on board with trach supplies -Pt learning to take care of the trach -ENT ENDOCRINOLOGY PHYSICIAN working with pt spitting trials #FEN/GI -Lytes [...] LAMIN OSULLIVAN PA-C Otolaryngology-Head and Neck Surgery [facility] Pager [phone] May Saul SLP - 01/19/2018 1:02 PM PDT INPATIENT ENT [...] periods of aphonia. Speech was without dysarthria [employer]. DIETARY STATUS: PEG for all nutrition/hydration/medication. Prior [...] Protocol and communication needs. May Newsome MS, CF-ENDOCRINOLOGY PHYSICIAN Speech-Language Pathology Fellow [facility] [place] Dept. of Otolaryngology, [address] [facility] [place] [address] Lamin Pruitt PA-C - 01/19/2018 7:48 AM PDT DOS: 01/18/2018 Head and Neck Surgery Inpatient Daily Progress Note: Primary Care Provider: Daniel Cannon MD Admission Date: 01/16/2018 RONNI MAHMOOD, [id number] Hospital Day #3 SUBJECTIVE INTERVAL EVENTS: -No [...] staff and placed on nursing communication) -ENT ENDOCRINOLOGY PHYSICIAN to follow for communication and spitting trials -Peridex for oral care #Trach care: -Downsize trach on Tuesday to a 6 cfs -RT on board with trach supplies -Pt learning to take care of the trach -ENT ENDOCRINOLOGY PHYSICIAN working with pt spitting trials #FEN/GI -Lytes [...] LAMIN OSULLIVAN PA-C Otolaryngology-Head and Neck Surgery [facility] Pager [phone] Bina Flowers MA, CCC-ENDOCRINOLOGY PHYSICIAN - 01/18/2018 10:47 AM PDTFormatting of this note might be different from the raul king INPATIENT ENT SPEECH PROGRESS NOTE: PCP: Daniel [...] eriods of aphonia. Speech was without dysarthria [employer]. DIETARY STATUS: PEG for all nutrition/hydration/medication. Prior [...] Protocol and communication needs. Bina Chavez M.S. CCC-ENDOCRINOLOGY PHYSICIAN Speech-Language Pathologist [facility] Dept. of Otolaryngology, [address] [facility] [place] [address] uaquin Osullivan PA-C - 01/18/2018 5:44 AM PDTFormatting of this note might be different from the origina l. DOS: 01/17/2018 Head and Neck Surgery Inpatient Daily Progress Note: Primary Care Provider: Daniel Cannon MD Admission Date: 01/16/2018 RONNI MAHMOOD, [id number] Hospital Day #2 SUBJECTIVE INTERVAL EVENTS: -No [...] Intake/Output Summary (Last 24 hours) at 01/18/18 0596 Last data filed at 01/18/18 0533 Gross per 24 hour Intake 3782.5 ml [...] pain management -continue DERRICK neck drains -ENT ENDOCRINOLOGY PHYSICIAN to follow for communication and spitting trials -Peridex for oral care #Trach care: -Downsize trach either Tuesday or Tuesday -RT on board with trach supplies -Pt learning to take care of the trach -ENT ENDOCRINOLOGY PHYSICIAN working with pt spitting trials #FEN/GI -Replaced [...] LAMIN OSULLIVAN PA-C Otolaryngology-Head and Neck Surgery [facility] Pager [phone] amin Osullivan PA-C - 01/17/2018 12:37 PM PDT DOS: 01/17/2018 Head and Neck Surgery Inpatient Daily Progress Note: Primary Care Provider: Daniel Cannon MD Admission Date: 01/16/2018 RONNI MAHMOOD, [id number] Hospital Day #1 SUBJECTIVE INTERVAL EVENTS: -No [...] pain management -continue DERRICK neck drains -ENT ENDOCRINOLOGY PHYSICIAN to follow for communication and spitting trials -Peridex for oral care #FEN/GI -Lytes wnl this am -NPO, okay for oral swabs for comfort -Trickle TFs -Dc'd karen, follow up with voiding #Deconditoned: PT to [...] LAMIN OSULLIVAN PA-C Otolaryngology-Head and Neck Surgery [facility] Pager [phone] rRuth cavanaugh S LP - 01/17/2018 9:49 [...] periods of aphonia. Speech was without dysarthria [employer]. DIETARY STATUS: PEG for all nutrition/hydration/medication. Prior [...] Protocol and communication needs. Ruth Marinelli, Ph.D., [facility]-ENDOCRINOLOGY PHYSICIAN Head Of Ethics And Compliance Director, [facility] Otolaryngology, Head and Neck Surgery [facility] Pager [phone] Pasquale Schwab MD - 01/17/2018 9:41 AM PDT PATIENT NAME: Ronni Mahmood [facility] MR#: [id number] : 1970 PRIMARY CARE PROVIDER: Daniel Cannon [...] Intake/Output Summary (Last 24 hours) at 01/17/18 0900 Last data filed at 01/17/18 0645 Gross [...] egin tracheotomy tube teaching. Pasquale Moscoso M.D. Head Of Ethics And Compliance Laryngology and Head & Neck Surgery Electronically [...] (R2) Otolaryngology - Head and Neck Surgery [facility] Pager: [phone] documented in this en counter Plan of Treatment +--------+---------+ + + + | Date | Type | Specialty | Care Team | Description | +--------+---------+ + + + | 03/19/ | Office | Otolaryngology | Pasquale Moscoso | | | 2019 | Visit | | MD [place] [address] [facility] | | | | | | [address] | | | | | | [place], [place] | | | | | | [address] | | | | | | [phone] | | | | | | | [...] | | Results for this | | [id number] | e | 2:22 PM | | [...] | | Results for this | | [id number] | e | 10:42 PM | | [...] | | | SURGEON: Pasquale Moscoso MD PADDED PRODUCTS INSPECTOR TRIMMER(S): Herman Mueller MD | | | PREOPERATIVE [...] carcinoma confirmed with biopsy and re-confirmed at [facility]. Options | | | including organ preservation [...] and the tube was connected to a Mack bag to straight | | | drain. [...] | Ervin NORRIS acted as Dr. Moscoso's foundation assistant during the case as no | | [...] | | | SURGEON: Pasquale Moscoso MD PADDED PRODUCTS INSPECTOR TRIMMER(S): Herman Mueller MD | | | PREOPERATIVE [...] carcinoma confirmed with biopsy and re-confirmed at [facility]. Options | | | including organ preservation [...] and the tube was connected to a Mack bag to straight | | | drain. [...] | Ervin NORRIS acted as Dr. Moscoso's foundation assistant during the case as no | | [...] | | | SURGEON: Pasquale Moscoso MD PADDED PRODUCTS INSPECTOR TRIMMER(S): Herman Mueller MD | | | PREOPERATIVE [...] carcinoma confirmed with biopsy and re-confirmed at [facility]. Options | | | including organ preservation [...] be worrisome. Procedure: | | | Mr. Mhamood was brought to the operating room and [...] and the tube was connected to a Mack bag to straight | | | drain. [...] around the neck. I, Herman | | Jojo Mueller MD acted as Dr. Moscoso's foundation assistant during the case as no | | | qualified resident was involved for any of the procedure. | | | DISPOSITION: Mr. Mahmood was returned to Anesthesia for awakening and | | | transferred to the PACU. He tolerated the procedure extremely | | | well. Herman Mueller M.D. Laryngology Fellow | | | | | + + + PARTIAL [id number] LARYNGECTOMY (01/23/2018 2:22 PM PDT) + + + | Narrative | Performed At | + + + | Herman Berumen MD 01/29/2018 9:32 PM DATE: 01/16/2018 | | | SURGEON: Pasquale Moscoso MD PADDED PRODUCTS INSPECTOR TRIMMER(S): Herman Mueller MD | | | PREOPERATIVE [...] carcinoma confirmed with biopsy and re-confirmed at [facility]. Options | | | including organ preservation [...] and the tube was connected to a Mack bag to straight | | | drain. [...] | Ervin NORRIS acted as Dr. Moscoso's foundation assistant during the case as no | | [...] | | | SURGEON: Pasquale Moscoso MD PADDED PRODUCTS INSPECTOR TRIMMER(S): Herman Mueller MD | | | PREOPERATIVE [...] carcinoma confirmed with biopsy and re-confirmed at [facility]. Options | | | including organ preservation [...] and the tube was connected to a Mack bag to straight | | | drain. [...] | Ervin NORRIS acted as Dr. Moscoso's foundation assistant during the case as no | | [...] | | | SURGEON: Pasquale Moscoso MD PADDED PRODUCTS INSPECTOR TRIMMER(S): Herman Mueller MD | | | PREOPERATIVE [...] carcinoma confirmed with biopsy and re-confirmed at [facility]. Options | | | including organ preservation [...] direct | | | microlaryngoscopy using the Olocode laryngoscope and operating | | | telescopes [...] and the tube was connected to a Mack bag to straight | | | drain. [...] | Ervin NORRIS acted as Dr. Moscoso's foundation assistant during the case as no | | [...] [facility] | [address] | [place] [address] | | | SERVICES, CORE | [address] [...] [facility] | [address] | [place] [address] | | | SERVICES, CORE | [address] | | | + + + + + MAGNESIUM, PLASMA (01/23/2018 4:43 AM PDT) + +-------+ + + + | Component | Value | Ref Range | Performed | Pathologist | | | | | At | Signature | + +-------+ + + + | MAGNESIUM,P | 2.6 | 1.6 - 2.6 mg/dL | [facility] | | | LASMA | | | [...] | + + + + + | [facility] | [address] | [place] [address] | | | SERVICES, CORE | PARK [...] | | | LABORATORY | | | IVORIAN | | | SERVICES, | | | [...] | Adult glucose reference range change effective 717. GFR is | [facility] | | estimated [...] | + + + + + | [facility] | [address] | [place] [address] | | | SERVICES, CORE | PARK [...] | + + + + + | [facility] | [address] | [place] [address] | | | SERVICES, CORE | ASUNCION [...] [facility] | [address] | [place] [address] | | | SERVICES, CORE | ASUNCION [...] | + + + + + | [facility] | [address] | [place] [address] | | | SERVICES, NUNU | ASUNCION [...] | | | LABORATORY | | | IVORIAN | | | SERVICES, | | | [...] | + + + + + | [facility] | [address] | [place] [address] | | | SERVICES, CORE | ASUNCION [...] [facility] | [address] | [place] [address] | | | SERVICES, CORE | PARK [...] | + + + + + | [facility] | [address] | [place] [address] | | | SERVICES, CORE | ASUNCION [...] [facility] | [address] | [place] [address] | | | SERVICES, CORE | PARK [...] | | | LABORATORY | | | IVORIAN | | | SERVICES, | | | [...] [facility] | [address] | [place] [address] | | | SERVICES, CORE | PARK [...] | + + + + + | [facility] | [address] | [place] [address] | | | SERVICES, CORE | PARK [...] | + + + + + | [facility] | [address] | [place] [address] | | | SERVICES, CORE | [address] | | | + + + + + MAGNESIUM, PLASMA (01/20/2018 5:14 AM PDT) + +-------+ + + + | Component | Value | Ref Range | Performed | Pathologist | | | | | At | Signature | + +-------+ + + + | MAGNESIUM,P | 2.2 | 1.6 - 2.6 mg/dL | [facility] | | | L[facility]MA | | | [...] + + + + + | [facility] | [address] | [place] [address] | | | SERVICES, NUNU | ASUNCION [...] | | | LABORATORY | | | IVORIAN | | | SERVICES, | | | [...] | + + + + + | [facility] | [address] | [place] [address] | | | SERVICES, CORE | ASUNCION [...] [facility] | [address] | [place] [address] | | | SERVICES, CORE | PARK [...] | + + + + + | [facility] | [address] | [place] [address] | | | CELINA, NUNU | PARK [...] | + + + + + | [facility] | [address] | [place] [address] | | | SERVICES, CORE | PARK [...] | | | LABORATORY | | | IVORIAN | | | SERVICES, | | | [...] [facility] | [address] | [place] [address] | | | SERVICES, CORE | PARK [...] | + + + + + | [facility] | [address] | [place] [address] | | | SERVICES, CORE | PARK [...] [facility] | [address] | [place] [address] | | | SERVICES, CORE | PARK [...] [facility] | [address] | [place] [address] | | | SERVICES, CORE | PARK [...] | | | LABORATORY | | | IVORIAN | | | SERVICES, | | | [...] Education Program. Estimated GFR Interpretive Information: | CELINA, CORE | | <60 mL/min/1.73 sq m [...] + + | Performing | Address | City/State[facility] | Phone Number | | Organization | | | | + + + + + | [facility] | [address] | [place] [address] | | | SERVICES, [facility] | [address] | | | + [...] | + + + + + | [facility] | [address] | [place] [address] | | | SERVICES, CORE | ASUNCION [...] [facility] | [address] | [place] [address] | | | SERVICES, CORE | PARK [...] | + + + + + | [facility] | [address] | [place] [address] | | | NUNU PATRICK | PARK [...] | | | LABORATORY | | | IVORIAN | | | SERVICES, | | | [...] | Adult glucose reference range change effective 712-17. 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 We have | | | discussed the [...] direct microlaryngoscopy using the | | | Snapdeal laryngoscope and operating telescopes. The teeth were [...] and the tube was connected to a Mack | | | bag to straight drain. [...] procedure. Herman Mueller MD acted as my foundation assistant | | | during this case as no qualified resident was involved for any of | | | the procedure. DISPOSITION: Mr. Mahmood was returned to Anesthesia | | | for awakening and transferred to the PACU. He tolerated the | | | procedure extremely well. Pasquale Moscoso M.D. | | | Head Of Ethics And Compliance Laryngology and Head & Neck Surgery | | + + + MODIFIED RADICAL NECK DISSECTION (01/16/2018 10:42 PM PDT) + + + | Narrative | Performed At | + + + | Pasquale Moscoso MD 01/16/2018 10:58 PM DATE: 01/16/2018 | | | SURGEON: Pasquale Moscoso MD PADDED PRODUCTS INSPECTOR TRIMMER SURGEON: Herman Mueller | | | PREOPERATIVE [...] cell carcinoma by biopsy confirmed here at [facility]. We have | | | discussed the [...] and the tube was connected to a Amck | | | bag to straight drain. [...] procedure. Herman Mueller MD acted as my foundation assistant | | | during this case as no qualified resident was involved for any of | | | the procedure. DISPOSITION: Mr. Mahmood was returned to Anesthesia | | | for awakening and transferred to the PACU. He tolerated the | | | procedure extremely well. Pasquale Moscoso M.D. | | | Head Of Ethics And Compliance Laryngology and Head & Neck Surgery | | + + + RECONSTRUCTION OF LARYNX AFTER PARTIAL LARYNGECTOMY (01/16/2018 10:42 PM PDT) + + + | Narrative | Performed At | + + + | Pasquale Moscoso MD 01/16/2018 10:58 PM DATE: 01/16/2018 | | | SURGEON: Pasquale Moscoso MD PADDED PRODUCTS INSPECTOR TRIMMER SURGEON: Herman Mueller, | | | PREOPERATIVE [...] cell carcinoma by biopsy confirmed here at [facility]. We have | | | discussed the [...] direct microlaryngoscopy using the | | | Snapdeal laryngoscope and operating telescopes. The teeth were [...] and the tube was connected to a Mack | | | bag to straight drain. [...] procedure. Herman Mueller MD acted as my foundation assistant | | | during this case as no qualified resident was involved for any of | | | the procedure. DISPOSITION: Mr. Mahmood was returned to Anesthesia | | | for awakening and transferred to the PACU. He tolerated the | | | procedure extremely well. Pasquale Moscoso M.D. | | | Head Of Ethics And Compliance Laryngology and Head & Neck Surgery | | + + + PARTIAL GZLOIN-YOQOFD-GHODAIHM LARYNGECTOMY (01/16/2018 10:42 PM PDT) + + + | Narrative | Performed At | + + + | Pasquale Moscoso MD 01/16/2018 10:58 PM DATE: 01/16/2018 | | | SURGEON: Pasquale Moscoso MD PADDED PRODUCTS INSPECTOR TRIMMER SURGEON: Herman Mueller | | | PREOPERATIVE [...] cell carcinoma by biopsy confirmed here at [facility]. We have | | | discussed the [...] and the tube was connected to a Mack | | | bag to straight drain. [...] procedure. Herman Mueller MD acted as my foundation assistant | | | during this case as no qualified resident was involved for any of | | | the procedure. DISPOSITION: Mr. Mahmood was returned to Anesthesia | | | for awakening and transferred to the PACU. He tolerated the | | | procedure extremely well. Pasquale Moscoso M.D. | | | Head Of Ethics And Compliance Laryngology and Head & Neck Surgery | | + + + PERCUTANEOUS PLACEMENT OF GASTROSTOMY TUBE (01/16/2018 10:42 PM PDT) + + + | Narrative | Performed At | + + + | Pasquale Moscoso MD 01/16/2018 10:58 PM DATE: 01/16/2018 | | | SURGEON: Pasquale Moscoso MD PADDED PRODUCTS INSPECTOR TRIMMER SURGEON: Herman Mueller | | | PREOPERATIVE [...] cell carcinoma by biopsy confirmed here at [facility]. We have | | | discussed the [...] I obtained informed consent from | | Jojo Mahmood prior to proceeding. ANESTHESIA: [...] direct microlaryngoscopy using the | | | Snapdeal laryngoscope and operating telescopes. The teeth were | | | protected. The larynx was carefully inspected. The findings are | | | noted above and Mr. Mahmodo was deemed to be a candidate for [...] and the tube was connected to a Mack | | | bag to straight drain. [...] procedure. Herman Mueller MD acted as my foundation assistant | | | during this case as no qualified resident was involved for any of | | | the procedure. DISPOSITION: Mr. Mahmood was returned to Anesthesia | | | for awakening and transferred to the PACU. He tolerated the | | | procedure extremely well. Pasquale Moscoso M.D. | | | Head Of Ethics And Compliance Laryngology and Head & Neck Surgery | | + + + LARYNGOSCOPY, DIRECT, DIAGNOSTIC, OPERATING TELESCOPE (01/16/2018 10:42 PM PDT) + + + | Narrative | Performed At | + + + | Pasquale Moscoso MD 01/16/2018 10:58 PM DATE: 01/16/2018 | | | SURGEON: Pasquale Moscoso MD PADDED PRODUCTS INSPECTOR TRIMMER SURGEON: Herman Mueller | | | PREOPERATIVE [...] cell carcinoma by biopsy confirmed here at [facility]. We have | | | discussed the [...] I obtained informed consent from | | Jojo Mahmood prior to proceeding. ANESTHESIA: [...] direct microlaryngoscopy using the | | | Snapdeal laryngoscope and operating telescopes. The teeth were [...] and the tube was connected to a Mack | | | bag to straight drain. [...] procedure. Herman Mueller MD acted as my foundation assistant | | | during this case as no qualified resident was involved for any of | | | the procedure. DISPOSITION: Mr. Mahmood was returned to Anesthesia | | | for awakening and transferred to the PACU. He tolerated the | | | procedure extremely well. Pasquale Moscoso M.D. | | | Head Of Ethics And Compliance Laryngology and Head & Neck Surgery | | + + + X-RAY PORTABLE CHEST 1 VIEW (01/16/2018 6:51 PM PDT) + + | Specimen | + + | | + + + + + | Narrative | Performed At | + + + | STUDY: FL CHEST 1 VIEW HISTORY: Subcoracoid partial laryngectomy [...] Interface - 01/17/2018 8:49 AM PDT STUDY: FL CHEST 1 | | VIEWHISTORY: Subcoracoid partial [...] + + + + + | [facility] | [id number] | [place], [place] | | | JOST[facility] OF SAR[facility] | [facility] | [id number] | | | TESTS | | | [...] nodes, negative for | | OF | Demario Mcdermott, | | | carcinoma (0)B. Right | [...] | | | | | | number [id number]. Neck, | | | | | | [...] partial | | | | | | mzsqer-pqzqbdf-iwznomds | | | | | | laryngectomy [...] is | | | | | | submitted.Automated Access Systems Technician | | | | | | sections [...] | | | | | | G8 bank representative | | | | | | [...] + + + + + | [facility] | [address] [address] | [place] [address] | | | PATHOLOGY | [address] [...] [facility] | [address] | [place] [address] | | | SERVICES, | [address] [...] + + + + + + | [facility] | [address] | [facility] [...] + + + + + | [facility] | [address] | [place], [place] | | | CARDIOLOGY | [address] | [address] | | + + + + + [...] + + + + | [facility] | [address] | [place], [place] | | | [place] [facility] OF CARE | [address] | [address] | | | TESTS | | | [...] [facility] | [address] | [place] [address] | | | SERVICES, CORE | [address] [...] [facility] | [address] | [place] [address] | | | SERVICES, | [address] [...] | + + + + + | [facility] | [address] | [place] [address] | | | SERVICES, | [address] [...] [facility] | [address] | [place] [address] | | | SERVICES, CORE | [address] [...] | | | LABORATORY | | | IVORIAN | | | SERVICES, | | | [...] [facility] | [address] | [place] [address] | | | CELINA, NUNU | [address] | | | + + + + [...] | | | + +--------+ +--------+------+------+ | acetaminophen (TYLENOL) oral | Given | 01/18/20 | 650 mg | | | | suspension 650 mg 650 mg, | | 18 3:29 | | | | | feeding tube, EVERY 4 HOURS, | | AM PDT | | | | | First dose on Tue01/16/18 at 2045, | | | | | | | Until Discontinued | | | | | | + +--------+ +--------+------+------+ +-------+ +--------+---+---+ | Given | 01/17/20 | 650 mg | | | | | 18 8:54 | | | | | | PM PDT | | | | +-------+ +--------+---+---+ +---+---+ | | | +---+---+ + +-------+ + +---+---+ | acetaminophen (TYLENOL) tablet | Given | [...] +---+---+ +-------+ + +---+---+ | Given | 01/24/20 [...] +-----+-------+---+ +---+---+ | | | +---+---+ + +---------+ +-----+---+---+ | ceFAZolin IV 2 gram in dextrose | New Bag | 01/21/20 | 2 g | | | | (RTU) 2 g, intravenous, EVERY 8 | | 18 8:00 | | | | | HOURS, First dose on Tue01/20/18 | | AM PDT | | | | | at 0745, Until Discontinued | | | | | | + +---------+ +-----+---+---+ +---+---+ | | | +---+---+ + [...] | | | DAILY, First dose on Tue01/16/18 | | AM PDT | | | [...] | | +---+---+ + +-------+ +------+---+---+ | folic acid (FOLVITE) tablet 1 | Given | 01/19/20 | 1 mg | | | | mg 1 mg, oral, DAILY, 3 doses, | | 18 8:40 | | | | | First dose on Tue01/16/18 at 2045, | | AM PDT | | | | | Last dose on Tue01/18/18 at 0900 | | | | | | + +-------+ +------+---+---+ +-------+ +------+---+---+ | Given | 01/18/20 | 1 mg | | | | | 18 7:51 | | | | | | AM PDT | | | | +-------+ +------+---+---+ | Given | 01/17/20 | 1 mg | | | | | 18 10:21 | | | | | | PM PDT | | | | +-------+ +------+---+---+ +---+---+ | | | +---+---+ + +-------+ +--------+---+---+ | HYDROmorphone (DILAUDID) | Given | 01/19/20 | 0.4 mg | | | | injection 0.2-0.4 mg 0.2-0.4 mg, | | 18 8:24 | | | | | intravenous, EVERY 2 HOURS | | AM PDT | | | | | NEEDED, Starting Tue01/16/18 at | | | | | | | 2201, Until Tue01/18/18 at 1906, | | | | | | | pain uncontrolled by oral pain | | | | | | | medications | | | | | | + +-------+ +--------+---+---+ +-------+ +--------+---+---+ | Given | 01/18/20 | 0.4 mg | | | | | 18 4:20 | | | | | | PM PDT | | | | +-------+ +--------+---+---+ | Given | 01/18/20 | 0.4 mg | | | | | 18 11:16 | | | | | | AM PDT | | | | +-------+ +--------+---+---+ +---+---+ | | | +---+---+ + +-------+ +--------+---+---+ | HYDROmorphone (DILAUDID) | Given | 01/17/20 | 0.5 mg | | | | injection 0.2-0.5 mg 0.2-0.5 mg, | | 18 7:20 | | | | | intravenous, POSTPROCEDURE PRN, | | PM PDT | | | | | Starting Tue01/16/18 at 1714, | | | | | | | Until Tue01/16/18 at 2019, | | | | | | | moderate pain while in Phase I | | | | | | | Recovery | | | | | | + +-------+ +--------+---+---+ +-------+ +--------+---+---+ | Given | 01/17/20 | 0.4 mg | | | | | 18 6:58 | | | | | | PM PDT | | | | +-------+ +--------+---+---+ | Given | 01/17/20 | 0.4 mg | | | | | 18 6:34 | | | | | | PM PDT | | | | +-------+ +--------+---+---+ +---+---+ | | | +---+---+ + +-------+ +------+---+---+ | ipratropium-albuterol (DUO-NEB) | Given | 01/17/20 | 3 mL | | | | nebulizer solution 3 mL 3 mL, | | 18 6:36 | | | | | inhalation, PREPROCEDURE ONCE | | AM PDT | | | | | (DISPENSE), 1 dose, Starting Mon | | | | | | | 01/16/18 at 0601, Until 01/16/18 | | | | | | | at 0636 | | | | | | + +-------+ +------+---+---+ + +---+ | | | + +---+ | ipratropium-albuterol (DUO-NEB) | | | nebulizer solution 1 dose, | | | Starting 01/16/18 at 0603, | | | Until 01/16/18 at 0636 | | + +---+ | | | + +---+ + +---------+ +-------+-------+---+ | lactated Ringers IV 125 mL/hr, | New Bag | 01/19/20 | 125 | 125 | | | intravenous, CONTINUOUS, | | 18 5:32 | mL/hr | mL/hr | | | Starting 01/16/18 at 1815, | | AM PDT | | | | | Until 01/18/18 at 1339 | | | | | | + +---------+ +-------+-------+---+ + + +-------+-------+---+ | New Bag | 01/18/20 | 125 | 125 | | | | 18 9:56 | mL/hr | mL/hr | | | | PM PDT | | | | + + +-------+-------+---+ | Rate/Dose Verify | 01/18/20 | 125 | 125 | | | | 18 6:00 | mL/hr | mL/hr | | | | PM PDT | | | | + + +-------+-------+---+ +---+---+ | | | +---+---+ + +-------+ +--------+---+---+ | LORazepam (ATIVAN) tablet 0.5-3 | Given | 01/20/20 | 0.5 mg | | | | mg 0.5-3 mg, oral, NEEDED, | | 18 9:25 | | | | | Starting Tue01/16/18 at 2035, | | PM PDT | | | | | Until Tue01/20/18 at 0640, RONYWA | | | | | | | protocol | | | | | | + +-------+ +--------+---+---+ +-------+ +--------+---+---+ | Given | 01/20/20 | 0.5 mg | | | | | 18 12:32 | | | | | | AM PDT | | | | +-------+ +--------+---+---+ | Given | 01/18/20 | 0.5 mg | | | | | 18 10:33 | | | | | | PM PDT | | | | +-------+ +--------+---+---+ +---+---+ | | | +---+---+ + +---------+ +-----+---+---+ | magnesium sulfate in water IV | New Bag | 01/19/20 | 2 g | | | | (RTU) 2 g 2 g, intravenous, | | 18 11:28 | | | | | ONCE, 1 dose, Tue01/18/18 at 1000 | | AM PDT | | | | + +---------+ +-----+---+---+ +---+---+ | | | +---+---+ + +-------+ +--------+---+---+ | morphine injection 0.5 mg 0.5 | Given | 01/20/20 | 0.5 mg | | | | mg, intravenous, EVERY 4 HOURS | | 18 12:14 | | | | | NEEDED, Starting Tue01/18/18 at | | PM PDT | | [...] | +---+---+ + +-------+ + +---+---+ | multivitamin (THERA VITAMIN) 1 | Given | 01/19/20 | 1 tablet | | | | tablet 1 tablet, oral, DAILY, 3 | | 18 8:40 | | | | | doses, First dose on Tue01/16/18 | | AM PDT | | | | | at 2045, Last dose on Tue01/18/18 | | | | | | | at 0900 | | | | | | + +-------+ + +---+---+ +-------+ + +---+---+ | Given | 01/18/20 | 1 tablet | | | | | 18 7:51 | | | | | | AM PDT | | | | +-------+ + +---+---+ | Given | 01/17/20 | 1 tablet | | | | | 18 10:21 | | | | | | PM PDT | | | | +-------+ + +---+---+ +---+---+ | | | +---+---+ + +-------+ +------+---+---+ | ondansetron (ZOFRAN) injection | Given | 01/17/20 | 4 mg | | | | 4 mg 4 mg, intravenous, EVERY 12 | | 18 8:54 | | | | | HOURS NEEDED, Starting Mon | | PM PDT | | | | | 01/16/18 at 2035, Until 01/17/18 | | | | | | | at 0736, nausea/vomiting if | | | | | | | unable to take oral ondansetron | | | | | | + +-------+ +------+---+---+ + +---+ | | | + +---+ | ondansetron (ZOFRAN) tablet 8 | | | mg 8 mg, feeding tube, EVERY 12 | | | HOURS NEEDED, Starting Sun | | | 01/22/18 at 1048, Until 01/23/18 | | | at 2027, nausea/vomiting, first | | | line | | + +---+ | | | + +---+ + +-------+ +-------+---+---+ | oxyCODONE (immediate release) | Given | 01/19/20 | 20 mg | | | | (ROXICODONE) liquid 10-20 mg | | 18 3:49 | | | | | 10-20 mg, feeding tube, EVERY 4 | | PM PDT | | | | | HOURS NEEDED, Starting Tue | | | | | | | 01/17/18 at 0352, Until 01/18/18 | | | | | | | at 1906, moderate pain, severe | | | | | | | pain | | | | | | + +-------+ +-------+---+---+ +-------+ +-------+---+---+ | Given | 01/19/20 | 20 mg | | | | | 18 11:28 | | | | | | AM PDT | | | | +-------+ +-------+---+---+ | Given | 01/19/20 | 20 mg | | | | | 18 5:32 | | | | | | AM [...] | oxyCODONE (immediate release) | Given | 01/18/20 | 15 mg | | | | (ROXICODONE) liquid 5-15 mg 5-15 | | 18 3:29 | | | | | mg, feeding tube, EVERY 4 HOURS | | AM PDT | | | | | NEEDED, Starting Tue01/16/18 at | | | | | | | 2035, Until Tue01/17/18 at 0353, | | | | | | | moderate pain, severe pain | | | | | | + +-------+ +-------+---+---+ +-------+ +-------+---+---+ | Given | 01/17/20 | 15 mg | | | | | 18 11:25 | | | | | | PM PDT | | | | +-------+ +-------+---+---+ | Given | 01/17/20 | 15 mg | | | | | 18 8:54 | | | | | | PM [...] | | +---+---+ + +-------+ +--------+---+---+ | potassium chloride (KLOR-CON) | Given | 01/23/20 | 40 mEq | | | | packet 40 mEq 40 mEq, feeding | | 18 11:59 | | | | | tube, ONCE, 1 dose, 01/22/18 at | | AM PDT | | | | | 1030 | | | | | | + +-------+ +--------+---+---+ +---+---+ | | | +---+---+ + +---------+ +---------+---+---+ | potassium phosphate IV 30 mmol | New Bag | 01/19/20 | 30 mmol | | | | 30 mmol, intravenous, ONCE, 1 | | 18 11:28 | | | | | dose, 01/18/18 at 1000 | | AM PDT | | | | + +---------+ +---------+---+---+ +---+---+ | | | +---+---+ + +-------+ + +---+---+ | potassium, sodium phosphates | Given | 01/22/20 | 1 packet | | | | (NEUTRA-PHOS, PHOS-NAK) | | 18 9:00 | | | | | 280-160-250 mg packet 1 packet 1 | | AM PDT | | | | | packet, feeding tube, ONCE, 1 | | | | | | | dose, 01/21/18 at 0800 | | | | | | + +-------+ + +---+---+ + +---+ | | | + +---+ [...] | | | | | 01/23/18 at 2027, agitation, | | | | | | [...] | | +---+---+ + +-------+ +--------+---+---+ | thiamine tablet 100 mg 100 mg, | Given | 01/19/20 | 100 mg | | | | oral, DAILY, 3 doses, First dose | | 18 8:40 | | | | | on Tue01/16/18 at 2045, Last dose | | AM PDT | | | | | on Tue01/18/18 at 0900 | | | | | | + +-------+ +--------+---+---+ +-------+ +--------+---+---+ | Given | 01/18/20 | 100 mg | | | | | 18 7:51 | | | | | | AM PDT | | | | +-------+ +--------+---+---+ | Given | 01/17/20 | 100 mg | | | | | 18 10:21 | | | | | | PM PDT | | | | +-------+ +--------+---+---+ +---+---+ | | | +---+---+ + +-------+ +------+---+---+ | varenicline (CHANTIX) tablet 1 | Given | 01/24/20 | 1 mg | | | | mg 1 mg, feeding tube, DAILY, | | 18 10:42 | | | | | First dose on 01/22/18 at 1100, | | AM PDT | [...]
--- OUTSIDE RECORDS SUMMARY | ~2019-10-09 | XMS | Clinical Summary ---
Demographics + + + | Address | [address] | | | [place] [address] | + + + | Home Phone | | + + + | Preferred Language | Unknown | + + + | Marital Status | | + + + | Baptism Affiliation | Unknown | + + + | Race | Unknown | + + + | Ethnic Group | Unknown | + + + Author + + + | Author | [facility] | | | and [place] | + + + | Organization | [facility] | | [...] Providers + +------+ + | Care Assistant Teacher Name | Role | Phone | [...] | | | | | | [address] [place], [place] | | | | | | [id number] | | | | | | | [...] | [employer] | [place] | [phone] | 11/17/19 | [phone] | | PPO [...] chary | | | 0 (Home) | [address] | | | | | | [phone] | | | | | | | 1 (Work) | | + +--------+ +--------+ + + Advance Directives + + + + + | Type | Date Recorded | Patient | Explanation | | | | Technical Support Manager | | + + + + + | Power of | | | | | National Account Representative | | | | + + + + + | Advance | | | | | Directive | | | | + + + + +
--- OUTSIDE RECORDS SUMMARY | ~2019-10-09 | XMS | Encounter Summary ---
Demographics + + + | Address | [address] | | | [place] [address] | + + + | Home Phone [...] | | | | [place] [address] | | + + + + + Care Team Providers + +------+ + | Care Sales Porter Name | Role | Phone | + [...] | | | | | | [address] [place], [place] | | | | | | [address] | | | | | | [phone] | | | +--------+ + + + [...] perfume, lotions or powder. Remove any nail hungarian from at least one fingernail. Do not [...] Surgery Check in Locations Day Stay Unit [facility], fourth floor Room 4512 Surgery Check in Time: Someone from your surgeon's office or [facility] will provide you with information regarding your [...] it is after office hours, call the [facility] pack room operator at [phone] and ask them to page your doc [...] [address] | | | | | | [place], [place] | | | | | | [address] | | | | | | [phone] | | | | | | | | +--------+---------+ + + + documented as of this encounter Visit Diagnoses Not on filedocumented in this encounter"
--- OUTSIDE RECORDS SUMMARY | ~2019-10-09 | XMS | Encounter Summary ---
Demographics + + + | Address | [address] | | | [place] [address] | + + + | Home Phone | | + + + | Preferred Language | Unknown | + + + | Marital Status | | + + + | Moravian Affiliation | Unknown | + + + | Race | Unknown | + + + | Ethnic Group | Unknown | + + + Author + + + | Author | [facility] | | | and [place] | + + + | Organization | [facility] | | [...] Team Providers + +------+ + | Care Germination Testing Manager Name | Role | Phone | [...] | glottis | [address] | [address] | | | | | (HCC) | [place], | [place], | | | | | | [place] [address] | [place] [address] | | | | | | Phone: | Phone: | | | | | | [phone] | [phone] | | | | | | Fax: | Fax: | | | | | | [phone] | [phone] | +--------+ + + + + + [...] | | [facility] [address] | [place], [place] | (Primary Dx) | | | | [address] [place] | [address] | | | | | [place] [address] | | | | | | [phone] | | | +--------+ + + + [...] | | | | | | [address] [place], [place] | | | | | | [address] | | | | | | | [...]
--- OUTSIDE RECORDS SUMMARY | ~2019-10-09 | XMS | Encounter Summary ---
Demographics + + + | Address | [address] | | | [place] [address] | + + + | Home Phone [...] Team Providers + +------+ + | Care Custodial Maintenance Worker Name | Role | Phone | [...] | SR | | | | | [phone] | | | +--------+ + + + [...] [place] | | | | | | [address] | | | | | | | | +--------+ + + + + documented as of this encounter Visit Diagnoses Not on filedocumented in this encounter
--- OUTSIDE RECORDS SUMMARY | ~2019-10-09 | XMS | Encounter Summary ---
Demographics + + + | Address | [address] | | | [place] [address] | + + + | Home Phone | | + + + | Preferred Language | Unknown | + + + | Marital Status | | + + + | Sabianist Affiliation | Unknown | + + + | Race | Unknown | + + + | Ethnic Group | Unknown | + + + Author + + + | Author | [facility] | | | and [place] | + + + | Organization | [facility] | | [...] Team Providers + +------+ + | Care Guard Sergeant Name | Role | Phone | + [...] | 08/24/ | Hospital | [facility] | Naida Burnette | Malignant neoplasm | | 2018 | Encounter | [facility] | MD Brad [address] | of glottis (HCC) | | | | [facility]Y CLIN[facility] [address] | [place], [place] | (Primary Dx) | | | | [address] | [address] | | | | | [place] [address] | | | | | | [phone] | | | +--------+ + + + [...] 10 MG tablet Take by mouth Daily. 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
--- OUTSIDE RECORDS SUMMARY | ~2019-10-09 | XMS | Encounter Summary ---
Demographics + + + | Address | [address] | | | [place] [address] | + + + | Home Phone [...] Team Providers + +------+ + | Care Provider Engagement Executive Name | Role | Phone | + +------+ + PCP | Unavailable | + +------+ + Encounter Details +--------+ + + + + | Date | Type | Department | Care Team | Description | +--------+ + + + + | 01/24/ | Hospital | [facility] | Bony Elizabeth, | | | 2011 | Encounter | MED CTR EMER[facility]ENCY | [address] | | | | | CENTER [address] | [place] | | | | | [place] | [address] | | | | | [address] | | | | | | [phone] | | | +--------+ + + + [...] [place] | | | | | | [address] | | | | | | | [...] Performed At | + + + | [facility] Diagnostic Imaging Department | [facility] | | [address] [facility] | [facility] | | CHEST, PA AND LATERAL: | [...] Transcribed Date/Time: | | | 01/25/2012 10:40 Director Of Broadcast: <Electronically Signed | | | by Jefry Ann MD> 01/25/12 1121 | | + + + + + | Procedure Note | + + | Tio, Rad Conversion - 11/23/2013 5:05 PM [facility] | | Diagnostic Imaging Department [address] [place] [address] | | CHEST, PA AND LATERAL: 01/25/2012 [...] 10:22 | |Transcribed Date/Time: 01/25/2012 10:40 | |Director Of Broadcast: | |<Electronically Signed by Jefry Ann MD> [...]
--- OUTSIDE RECORDS SUMMARY | ~2019-10-09 | XMS | Encounter Summary ---
Demographics + + + | Address | [address] | | | [place] [address] | + + + | Home Phone [...] | | | | [place] [address] | | + + + + + Care Team Providers + +------+ + | Care Bootmaker Name | Role | Phone | + +------+ + | Daniel Cannon MD | PCP | | + +------+ + Encounter Details +--------+ + + + + | Date | Type | Department | Care Team | Description | +--------+ + + + + | 08/10/ | Documentati | Otolaryngology | Pasquale Moscoso | | | 2018 | on | Laryngology Services | MD [place] [address] [facility] | | | | | at [facility] [address] | | | | | [place], | [place], [place] | | | | | [place] [address] | [address] | | | | | [phone] | [phone] | | | | | | | [...] | Visit | | MD [place] [address] [facility] | | | | | [facility] | | | | | | [place], [place] | | | | | | [address] | | | | | | [phone] | | | | | | | | +--------+---------+ + + + documented as of this encounter Visit Diagnoses Not on filedocumented in this encounter"
--- OUTSIDE RECORDS SUMMARY | ~2019-10-09 | XMS | Encounter Summary ---
Demographics + + + | Address | [address] | | | [place] [address] | + + + | Home Phone | | + + + | Preferred Language | Unknown | + + + | Marital Status | | + + + | Hoahaoism Affiliation | Unknown | + + + [...] Team Providers + +------+ + | Care Mower Sharpener Name | Role | Phone | + [...] Dominguez MD | | | | | [place], | | | | | | [place] [address] | | | | | | [phone] | | | +--------+--------+ + + + [...] | | | | | [facility] [place] [facility] [place] | | | | | | [id number] | | | | | | | | +--------+ + + + + documented as of this encounter Visit Diagnoses Not on filedocumented in this encounter"
--- OUTSIDE RECORDS SUMMARY | ~2019-10-09 | XMS | Encounter Summary ---
Demographics + + + | Address | [address] | | | [place] [address] | + + + | Home Phone | | + + + | Preferred Language | Unknown | + + + | Marital Status | | + + + | Yazidism Affiliation | Unknown | + + + [...] Team Providers + +------+ + | Care Shredding Floor Equipment Operator Name | Role | Phone | [...] + | 07/21/ | Telephone | [facility] | Mary [place], | IDT Note | | 2018 | | [facility] | Yolande RN | | | | | [facility] [address] | | | | | | [address] | | | | | | [place] [address] | | | | | | [phone] | | | +--------+ + + + [...]
--- OUTSIDE RECORDS SUMMARY | ~2019-10-09 | XMS | Encounter Summary ---
Demographics + + + | Address | [address] | | | [place] [address] | + + + | Home Phone [...] Team Providers + +------+ + | Care Recruiting Scheduler Name | Role | Phone | + [...] Exam | BAS[facility] | MD Shashi [address] | | | | | EXTERNAL IMAGING | Brianna MAY | | | | | Jenny GARDUNO | [place] [address] | | | | | [place] | | | | | | [address] | | | | | | [phone] | | | +--------+ + + + [...] | | | | | [place] | | | | | | [address] | | | | | | | [...]
--- OUTSIDE RECORDS SUMMARY | ~2019-10-09 | XMS | Encounter Summary ---
Demographics + + + | Address | [address] | | | [place] [address] | + + + | Home Phone [...] Team Providers + +------+ + | Care Houseman Name | Role | Phone | + [...] | | | | VISIT | [address] | [place], | | | | | EXTENDED | [place], | [place] [address] | | | | | | [place] | Phone: | | | | | | [address] | [phone] | | | | | | Phone: | Fax: | | | | | | [phone] | [phone] | | | | | | Fax: | | | | | | | [phone] | | + +--------+ + + + + Encounter Details +--------+ + + + + | Date | Type | Department | Care Team | Description | +--------+ + + + + | 07/02/ | Hospital | [facility] | Naida Burnette | Malignant neoplasm | | 2019 | Encounter | [facility] | MD Brad [address] | of glottis (HCC) | | | | [facility] [address] [place], [place] | (Primary Dx) | | | | [address] [place] | [address] | | | | | [place] [address] | | | | | | [phone] | | | +--------+ + + + [...] 07/02/2019 10:33 AM PDT1) Keep appointment at [facility] in September with imaging and labs. 2) [...] impaired mobility 01/16/2018 Surgery Surgeon: Dr. Moscoso, [facility] Surgery indicated: Supracricoid partial laryngectomy sparing [...] neck mass CT neck on 05/29/18 at [facility] abscess at anterior neck. I&D and [...] of the abscess was negative for leanne tsrange. At the time of surgery he also [...] fu with Dr. Aleman of ID @ [facility]. Completed 6 months of amoxicillin for actino [...] 10 MG tablet Take by mouth Daily. fzjqzrnbhxZWLXX-ynibmtjgd-qqflngoc & magnesium hydroxide-simethicone (MAGIC MOUTHWASH) Swish and [...] anika phase. Plan: 1) Keep appointment at [facility] in September with imaging and labs. [...] M.D. Radiation Oncologist Department of Radiation Oncology [facility] Office: [phone] documented in this encounter Plan of Treatment +--------+ + + + + | Date | Type | Specialty | Care Team | Description | +--------+ + + + + | 01/01/ | Appointment | Radiation Oncology | Naida Burnette | | | 2019 | | | MD Brad [address] | | | | | | 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
--- OUTSIDE RECORDS SUMMARY | ~2019-10-09 | XMS | Encounter Summary ---
Demographics + + + | Address | [address] | | | [place] [address] | + + + | Home Phone [...] Author | [facility] | + + + | Organization | [facility] | + + + | Address | Unknown | + + + | Phone | Unavailable | + + + Support + + + + + | Name | Relationship | Address | Phone | + + + + + | Ceicle Chowdhury | ECON | [address] | | | | | [place] [address] | | + + + + + Care Team Providers + +------+ + | Care Health And Social Care Teacher Name | Role | Phone | [...] | | Laryngology Services | MD Sidney [address] | | | | | at [facility] [address] | | | | | [place], | [place], [place] | | | | | [place] [address] | [address] | | | | | [phone] | [phone] | | | | | | | [...] [address] | | | | | | [place] | | | | | | [address] | | | | | | [phone] | | | | | | | | +--------+---------+ + + + documented as of this encounter Visit Diagnoses Not on filedocumented in this encounter"
--- OUTSIDE RECORDS SUMMARY | ~2019-10-09 | XMS | Encounter Summary ---
Demographics + + + | Address | [address] | | | [place] [address] | + + + | Home Phone [...] | | | | [place] [address] | | + + + + + Care Team Providers + +------+ + | Care Pipeline Engineer Name | Role | Phone | [...] | | LALO Roland | MD [place] [address] | MICROLARYNGOSCOPY; | | | | Rd [facility] | [address] | | | | | Hospital Admitting | [place], [place] | | | | | Desk Located on the | [address] | | | | | 2 floor | [phone] | | | | | [place], [place] | | | | | | [address] | | | +--------+---------+ + + + [...] chronic pain (close follow up with his [facility] doctor). The patient had stable respiratory status on 3 Liters of supplement O2 (provided at [facility]). The patient was evaluated by speech language [...] when in direct sunli ght [facility] [place] your teeth as you would normally, but try not to stretch the lips as you brush. It is important to use the Peridex (chlorhexidine gluconate) or equivalent mouthrinse twice per d ay until you see your doctor back in the clinic. TRACH CARE: If your trach comes out and you have difficulty breathing call 911 or [facility]. If the trach is [...] any additional questions or concerns. Call the [facility] for Voice & Swallowing at [phone] for difficulty breathing or unusual shortness of breath , excessive bleeding, drainage at the operative site, fevers, chills, increased pain that is not relieved by pain medications, persistent nausea or vomit ing. FOLLOW-UP: 02/06/2018 10:00 AM Steven GONZALEZ Otolaryngoangel 02/06/2018 11:30 AM Pasquale Moscoso MD ENTLADemario Otolaryngoangel HOW TO REACH US: Tuesday- Tuesday from 8:00am to 4:30pm, call the Otolaryngology clinic at [phone]. After hours, weekends, and holidays, call the [facility] dredge pipe operator at [phone] and as k to have the ENT doctor on-call paged Future Appointments Date Time Provider Department Center 02/06/2018 10:00 AM Steven Olivaresynmarcelle 02/06/2018 11:30 AM Pasquale Moscoso MD ENTCHERYL Otolaryngoangel Consults obtained:PT/OT, ENT SCHOOL SUPERVISOR, nutrition, Respiratory naval surface fire support planner Pertinent imaging:In [facility] Pertinent labs: CBC with diff last 72 [...] and Neck Surgery Mail Code PV01 [address] [place] [address] Pager [phone] Consult/Night/Weekend Pager: [phone] documented in this encounter Discharge Instructions Instructions [...] while you go through treatment. Call the [employer] ( ) or visit [...] concerns with your doctor, counselor, or other [facility] professional. If you are vomiting or have [...] Neck Cancer: Care Instructions", log into your [employer] accoun t at [email or web address]. You can enter I202 in the "Secret Space Library" search box. Not on Litebit? Review the DARA [employer] section of your After Visit Summary for directions on red w to sign up. Current as of: February 25, 2017 Content Version: 11.5 7586-5243 [employer]. Care instructions adapted under license by [facility]. If you have questions about a medical condition or this instr uction, always ask your healthcare professional. [employer] disclaims any carlos anty or liability for [...] or dog food bags, or a vacuum cleaner operator. ? Ask your doctor when you can [...] doctor if you can take an o uhl-dxz-rtifyvo medicine. ? If you think your pain [...] to Expect at Home", log into your [employer] account a t [email or web address]. You can enter I060 in the "Secret Space Library" search box. Not on [employer]? Review the [employer] section of your After Visit Summary for directions on red w to sign up. Current as of: February 25, 2017 Content Version: 11.5 0931-0105 [employer]. Care instructions adapted under license by [facility]. If you have questions about a medical condition or this instr uction, always ask your healthcare professional. [employer] disclaims any carlos anty or liability [...] sober up day--on purpose. 2.6 Avoiding The Eye-Funeral Pre Arrangement Specialist If you sometimes tend to drink the morning after then it is good to have a plan to avoid th e eye-durability technician. One thing which can help is to [...] Will f/u post DC. Steven Vidal, PhD, CCC-SCHOOL SUPERVISOR Count Includes [facility] [place] Dept. of Otolaryngology, PV- [address] [place] [address] [facility] Ronni Borjas MD - 01/22/2018 9:18 AM PDTFormatting of this note might be different fr om the original. Head and Neck Surgery Inpatient Daily Progress Note: Date: 01/22/2018 Primary Care Provider: Daniel Cannon MD Admission Date: 01/16/2018 RONNI MAHMOOD, [id number] Hospital Day #6 SUBJECTIVE INTERVAL EVENTS: -overnight [...] compression dressing day prior to discharge -ENT SCHOOL SUPERVISOR to follow for communication and spitting trials -Peridex for oral care #Trach care: -Continue 6cfs trach -RT DC business continuity planner following for trach supplies -ENT SCHOOL SUPERVISOR working with pt spitting trials #FEN/GI -Follow [...] PGY-3 Otolaryngology/ Head & Neck Surgery Pager [phone] Associated attestation - Casper Wright MD - 01/22/2018 10:08 AM PDT PATIENT NAME: Ronni Mahmood [facility] MR#: [id number] : 1970 PRIMARY CARE PROVIDER: Daniel Cannon [...] periods of aphonia. Speech was without dysarthria FUND DIRECTOR. DIETARY STATUS: PEG for all nutrition/hydration/medication. Prior [...] Protocol and communication needs. May Newsome MS, CF-SCHOOL SUPERVISOR Speech-Language Pathology Fellow [facility] Otolaryngology, Head and Neck Surgery Count Includes [facility] [place] [phone] olt, Callum De Oliveira MD - 8:17 AM PDT Head and Neck Surgery Inpatient Daily Progress Note: Date: 01/21/2018 Primary Care Provider: Daniel Cannon MD Admission Date: 01/16/2018 RONNI MAHMOOD, [id number] Hospital Day #5 SUBJECTIVE INTERVAL EVENTS: -No [...] compression dressing day prior to discharge -ENT SCHOOL SUPERVISOR to follow for communication and spitting trials -Peridex for oral care #Trach care: -Continue 6cfs trach -RT DC business continuity planner following for trach supplies -ENT SCHOOL SUPERVISOR working with pt spitting trials #FEN/GI -Follow [...] Oconnell MD R4 Otolaryngology-Head and Neck Surgery Count Includes [facility] [place] Pager [phone] Associated attestation - Casper Wright MD - 01/22/2018 8:03 AM PDT PATIENT NAME: Ronni Mahmood [facility] MR#: [id number] : 1970 PRIMARY CARE PROVIDER: Daniel Cannon [...] periods of aphonia. Speech was without dysarthria FUND DIRECTOR. DIETARY STATUS: PEG for all nutrition/hydration/medication. Prior [...] Protocol and communication needs. Ruth Marinelli, Ph.D., CCC-SCHOOL SUPERVISOR Power Plant Assistant Director, [facility] Sw[facility]ing Otolaryngology, Head and Neck Surgery Count Includes [facility] [place] [phone] Lamin Pruitt PA -C - 01/20/2018 9:38 AM PDT DOS: 01/19/2018 Head and Neck Surgery Inpatient Daily Progress Note: Primary Care Provider: Daniel Cannon MD Admission Date: 01/16/2018 RONNI MAHMOOD, [id number] Hospital Day #4 SUBJECTIVE INTERVAL EVENTS: -No [...] compression dressing during the trach change -ENT SCHOOL SUPERVISOR to follow for communication and spitting trials -Peridex for oral care #Trach care: -Downsize trach on Tuesday to a 6 cfs today -RT on board with trach supplies -Pt learning to take care of the trach -ENT SCHOOL SUPERVISOR working with pt spitting trials #FEN/GI -Lytes [...] LAMIN OSULLIVAN PA-C Otolaryngology-Head and Neck Surgery Count Includes [facility] [place] Pager [phone] May Saul, LESTER - 01/19/2018 1:02 PM [...] periods of aphonia. Speech was without dysarthria FUND DIRECTOR. DIETARY STATUS: PEG for all nutrition/hydration/medication. Prior [...] Protocol and communication needs. May Newsome MS, CF-SCHOOL SUPERVISOR Speech-Language Pathology Fellow Count Includes [facility] [place] Dept. of Otolaryngology, [address] [place] [address] Lamin Pruitt PA-C - 01/19/2018 7:48 AM PDT DOS: 01/18/2018 Head and Neck Surgery Inpatient Daily Progress Note: Primary Care Provider: Daniel Cannon MD Admission Date: 01/16/2018 RONNI MAHMOOD, [id number] Hospital Day #3 SUBJECTIVE INTERVAL EVENTS: -No [...] staff and placed on nursing communication) -ENT SCHOOL SUPERVISOR to follow for communication and spitting trials -Peridex for oral care #Trach care: -Downsize trach on Tuesday to a 6 cfs -RT on board with trach supplies -Pt learning to take care of the trach -ENT SCHOOL SUPERVISOR working with pt spitting trials #FEN/GI -Lytes [...] LAMIN OSULLIVAN PA-C Otolaryngology-Head and Neck Surgery Count Includes [facility] [place] Pager [phone] Bina Flowers MA, CCC-SCHOOL SUPERVISOR - 01/18/2018 10:47 AM PDTFormatting of this note might be different from the [facility] INPATIENT ENT SPEECH PROGRESS NOTE: PCP: [...] eriods of aphonia. Speech was without dysarthria FUND DIRECTOR. DIETARY STATUS: PEG for all nutrition/hydration/medication. Prior [...] Protocol and communication needs. Bina Chavez M.S. CCC-SCHOOL SUPERVISOR Speech-Language Pathologist Count Includes [facility] Dept. of Otolaryngology, [address] [place] [address] uaquin Osullivan PA-C - 01/18/2018 5:44 AM PDTFormatting of this note might be different from the raul l. DOS: 01/17/2018 Head and Neck Surgery Inpatient Daily Progress Note: Primary Care Provider: Daniel Cannon MD Admission Date: 01/16/2018 RONNI Renée MAHMOOD, [id number] Hospital Day #2 SUBJECTIVE INTERVAL EVENTS: -No [...] Intake/Output Summary (Last 24 hours) at 01/18/18 0594 Last data filed at 01/18/18 0571 Gross per 24 hour Intake 3782.5 ml [...] pain management -continue DERRICK neck drains -ENT SCHOOL SUPERVISOR to follow for communication and spitting trials -Peridex for oral care #Trach care: -Downsize trach either Tuesday or Tuesday -RT on board with trach supplies -Pt learning to take care of the trach -ENT SCHOOL SUPERVISOR working with pt spitting trials #FEN/GI -Replaced [...] LAMIN OSULLIVAN PA-C Otolaryngology-Head and Neck Surgery Count Includes [facility] Pager [phone] amin Osullivan PA-C - 01/17/2018 12:37 PM PDT DOS: 01/17/2018 Head and Neck Surgery Inpatient Daily Progress Note: Primary Care Provider: Daniel Cannon MD Admission Date: 01/16/2018 RONNI MAHMOOD, [id number] Hospital Day #1 SUBJECTIVE INTERVAL EVENTS: -No [...] pain management -continue DERRICK neck drains -ENT SCHOOL SUPERVISOR to follow for communication and spitting trials [...] LAMIN OSULLIVAN PA-C Otolaryngology-Head and Neck Surgery Count Includes [facility] Pager [phone] rRuth cavanaugh S LP - 01/17/2018 9:49 [...] periods of aphonia. Speech was without dysarthria FUND DIRECTOR. DIETARY STATUS: PEG for all nutrition/hydration/medication. Prior [...] Protocol and communication needs. Ruth Marinelli, Ph.D., [facility]-SCHOOL SUPERVISOR Power Plant Assistant Director, [facility] Otolaryngology, Head and Neck Surgery Count Includes [facility] Pager [phone] Pasquale Schwab MD - 01/17/2018 9:41 AM PDT PATIENT NAME: Ronni Mahmood [facility] MR#: [id number] : 1970 PRIMARY CARE PROVIDER: Daniel Cannon [...] egin tracheotomy tube teaching. Pasquale Moscoso M.D. Power Plant Assistant Laryngology and Head & Neck Surgery Electronically [...] (R2) Otolaryngology - Head and Neck Surgery Count Includes [facility] Pager: [phone] documented in this en counter Plan of Treatment +--------+---------+ + + + | Date | Type | Specialty | Care Team | Description | +--------+---------+ + + + | 03/19/ | Office | Otolaryngology | Pasquale Moscoso | | | 2019 | Visit | | MD [address] [facility] | | | | | | [address] | | | | | | [place], [place] | | | | | | [address] | | | | | | [phone] | | | | | | | [...] | | Results for this | | [id number] | e | 2:22 PM | | [...] | | Results for this | | [id number] | e | 10:42 PM | | [...] | | | SURGEON: Pasquale Moscoso MD PROFESSOR OF OCEANOGRAPHY(S): Herman Mueller MD | | | PREOPERATIVE [...] carcinoma confirmed with biopsy and re-confirmed at [facility]. Options | | | including organ [...] | Ervin NORRIS acted as Dr. Moscoso's home based assistant during the case as no | [...] | | | SURGEON: Pasquale Moscoso MD PROFESSOR OF OCEANOGRAPHY(S): Herman Mueller MD | | | PREOPERATIVE [...] carcinoma confirmed with biopsy and re-confirmed at [facility]. Options | | | including organ [...] | Ervin NORRIS acted as Dr. Moscoso's home based assistant during the case as no | [...] | | | SURGEON: Pasquale Moscoso MD PROFESSOR OF OCEANOGRAPHY(S): Herman Mueller MD | | | PREOPERATIVE [...] carcinoma confirmed with biopsy and re-confirmed at [facility]. Options | | | including organ [...] | Ervin NORRIS acted as Dr. Moscoso's home based assistant during the case as no | | | qualified resident was involved for any of the procedure. | | | DISPOSITION: Mr. Mahmood was returned to Anesthesia for awakening and | | | transferred to the PACU. He tolerated the procedure extremely | | | well. Herman Mueller M.D. Laryngology Fellow | | | | | + + + PARTIAL [id number] LARYNGECTOMY (01/23/2018 2:22 PM PDT) + + + | Narrative | Performed At | + + + | Herman Berumen MD 01/29/2018 9:32 PM DATE: 01/16/2018 | | | SURGEON: Pasquale Moscoso MD PROFESSOR OF OCEANOGRAPHY(S): Herman Mueller MD | | | PREOPERATIVE [...] carcinoma confirmed with biopsy and re-confirmed at [facility]. Options | | | including organ [...] | Ervin NORRIS acted as Dr. Moscoso's home based assistant during the case as no | [...] | | | SURGEON: Pasquale Moscoso MD PROFESSOR OF OCEANOGRAPHY(S): Herman Mueller MD | | | PREOPERATIVE [...] carcinoma confirmed with biopsy and re-confirmed at [facility]. Options | | | including organ [...] | Ervin NORRIS acted as Dr. Moscoso's home based assistant during the case as no | [...] | | | SURGEON: Pasquale Moscoso MD PROFESSOR OF OCEANOGRAPHY(S): Herman Muleler MD | | | PREOPERATIVE DIAGNOSES: T3N0 [...] carcinoma confirmed with biopsy and re-confirmed at [facility]. Options | | | including organ [...] gut suture in a running fashion. A [employer] | | | wrap was placed circumferentially around the neck. I, Herman | | | Ervin NORRIS acted as Dr. Moscoso's home based assistant during the case as no | [...] | + + + + + | [facility] | [address] | [place] [address] | | | CELINA, NUNU | PARK [...] [facility] | [address] | [place] [address] | | | SERVICES, CORE | ASUNCION [...] [facility] | [address] | [place] [address] | | | SERVICES, CORE | PARK [...] | | | LABORATORY | | | PALESTINIAN | | | SERVICES, | | | [...] | + + + + + | [facility] | [address] | [place] [address] | | | NUNU PATRICK | ASUNCION [...] | + + + + + | [facility] | [address] | [place] [address] | | | SERVICES, CORE | ASUNCION [...] [facility] | [address] | [place] [address] | | | SERVICES, CORE | PARK [...] | + + + + + | [facility] | [address] | [place] [address] | | | NUNU PATRICK | PARK [...] | | | LABORATORY | | | PALESTINIAN | | | SERVICES, | | | [...] | + + + + + | [facility] | [address] | [place] [address] | | | SERVICES, CORE | PARK [...] [facility] | [address] | [place] [address] | | | SERVICES, CORE | PARK [...] | + + + + + | [facility] | [address] | [place] [address] | | | SERVICES, CORE | ASUNCION [...] [facility] | [address] | [place] [address] | | | SERVICES, CORE | PARK [...] | | | LABORATORY | | | PALESTINIAN | | | SERVICES, | | | [...] [facility] | [address] | [place] [address] | | | SERVICES, CORE | PARK [...] [facility] | [address] | [place] [address] | | | SERVICES, CORE | ASUNCION [...] | + + + + + | [facility] | [address] | [place] [address] | | | SERVICES, CORE | [address] | | | + + + + + MAGNESIUM, PLASMA (01/20/2018 5:14 AM PDT) + +-------+ + + + | Component | Value | Ref Range | Performed | Pathologist | | | | | At | Signature | + +-------+ + + + | MAGNESIUM,P | 2.2 | 1.6 - 2.6 mg/dL | [facility] | | | LASMA | | [...] [facility] | [address] | [place] [address] | | | SERVICES, NUNU | ASUNCION [...] | | | LABORATORY | | | PALESTINIAN | | | SERVICES, | | | [...] | + + + + + | [facility] | [address] [facility] [address] | [place] [address] | | | SERVICES, NUNU | ASUNCION [...] | + + + + + | [facility] | [address] | [place] [address] | | | SERVICES, CORE | ASUNCION [...] | + + + + + | [facility] | [address] | [place] [address] | | | SERVICES, CORE | PARK [...] | + + + + + | [facility] | [address] | [place] [address] | | | SERVICES, CORE | ASUNCION [...] | | | LABORATORY | | | PALESTINIAN | | | SERVICES, | | | [...] [facility] | [address] | [place] [address] | | | SERVICES, CORE | PARK [...] [facility] | [address] | [place] [address] | | | SERVICES, CORE | [address] | | | + + + + + PHOSPHORUS, PLASMA (01/18/2018 5:06 AM PDT) + +---------+ + + + | Component | Value | Ref Range | Performed | Pathologist | | | | | At | Signature | + +---------+ + + + | PHOSPHORUS, | 2.3 (L) | 2.4 - 4.7 mg/dL | [facility] | | | PLASMA | | | [...] | + + + + + | [facility] | [address] | [place] [address] | | | SERVICES, CORE | PARK [...] [facility] | [address] | [place] [address] | | | SERVICES, CORE | PARK [...] | | | LABORATORY | | | PALESTINIAN | | | SERVICES, | | | [...] | + + + + + | [facility] | [address] [facility] [address] | [place] [address] | | | SERVICES, CORE | ASUNCION [...] | + + + + + | [facility] | [address] | [place] [address] | | | SERVICES, CORE | ASUNCION [...] [facility] | [address] | [place] [address] | | | SERVICES, CORE | PARK [...] | + + + + + | [facility] | [address] | [place] [address] | | | NUNU PATRICK | PARK [...] | | | LABORATORY | | | PALESTINIAN | | | SERVICES, | | | [...] | + + + + + | [facility] | [address] | [place] [address] | | | SERVICES, CORE | [address] | | | + + + + + TRACHEOTOMY (01/16/2018 10:42 PM PDT) + + + | Narrative | Performed At | + + + | Pasquale Moscoso MD 01/16/2018 10:58 PM DATE: 01/16/2018 | | | SURGEON: Pasquale Moscoso MD PROFESSOR OF OCEANOGRAPHY SURGEON: Herman Mueller, | | | PREOPERATIVE [...] cell carcinoma by biopsy confirmed here at [facility]. We have | | | discussed [...] direct microlaryngoscopy using the | | | MyVerse laryngoscope and operating telescopes. The teeth were [...] procedure. Herman Mueller MD acted as my home based assistant | | | during this case as no qualified resident was involved for any of | | | the procedure. DISPOSITION: Mr. Mahmood was returned to Anesthesia | | | for awakening and transferred to the PACU. He tolerated the | | | procedure extremely well. Pasquale Moscoso M.D. | | | Power Plant Assistant Laryngology and Head & Neck Surgery | | + + + MODIFIED RADICAL NECK DISSECTION (01/16/2018 10:42 PM PDT) + + + | Narrative | Performed At | + + + | Pasquale Moscoso MD 01/16/2018 10:58 PM DATE: 01/16/2018 | | | SURGEON: Pasquale Moscoso MD PROFESSOR OF OCEANOGRAPHY SURGEON: Herman Mueller | | | PREOPERATIVE [...] cell carcinoma by biopsy confirmed here at [facility]. We have | | | discussed [...] procedure. Herman Mueller MD acted as my home based assistant | | | during this case as no qualified resident was involved for any of | | | the procedure. DISPOSITION: Mr. Mahmood was returned to Anesthesia | | | for awakening and transferred to the PACU. He tolerated the | | | procedure extremely well. Pasquale Moscoso M.D. | | | Power Plant Assistant Laryngology and Head & Neck Surgery | | + + + RECONSTRUCTION OF LARYNX AFTER PARTIAL LARYNGECTOMY (01/16/2018 10:42 PM PDT) + + + | Narrative | Performed At | + + + | Pasquale Moscoso MD 01/16/2018 10:58 PM DATE: 01/16/2018 | | | SURGEON: Pasquale Moscoso MD PROFESSOR OF OCEANOGRAPHY SURGEON: Herman Mueller | | | PREOPERATIVE [...] cell carcinoma by biopsy confirmed here at [facility]. We have | | | discussed [...] direct microlaryngoscopy using the | | | MyVerse laryngoscope and operating telescopes. The teeth were [...] procedure. Herman Mueller MD acted as my home based assistant | | | during this case as no qualified resident was involved for any of | | | the procedure. DISPOSITION: Mr. Mahmood was returned to Anesthesia | | | for awakening and transferred to the PACU. He tolerated the | | | procedure extremely well. Pasquale Moscoso M.D. | | | Power Plant Assistant Laryngology and Head & Neck Surgery | | + + + PARTIAL [id number] LARYNGECTOMY (01/16/2018 10:42 PM PDT) + + + | Narrative | Performed At | + + + | Pasquale Moscoso MD 01/16/2018 10:58 PM DATE: 01/16/2018 | | | SURGEON: Pasquale Moscoso MD PROFESSOR OF OCEANOGRAPHY SURGEON: Herman Mueller | | | PREOPERATIVE [...] cell carcinoma by biopsy confirmed here at [facility]. We have | | | discussed [...] procedure. Herman Mueller MD acted as my home based assistant | | | during this case as no qualified resident was involved for any of | | | the procedure. DISPOSITION: Mr. Mahmood was returned to Anesthesia | | | for awakening and transferred to the PACU. He tolerated the | | | procedure extremely well. Pasquale Moscoso M.D. | | | Power Plant Assistant Laryngology and Head & Neck Surgery | | + + + PERCUTANEOUS PLACEMENT OF GASTROSTOMY TUBE (01/16/2018 10:42 PM PDT) + + + | Narrative | Performed At | + + + | Pasquale Moscoso MD 01/16/2018 10:58 PM DATE: 01/16/2018 | | | SURGEON: Pasquale Moscoso MD PROFESSOR OF OCEANOGRAPHY SURGEON: Herman Mueller | | | PREOPERATIVE [...] cell carcinoma by biopsy confirmed here at [facility]. We have | | | discussed [...] direct microlaryngoscopy using the | | | MyVerse laryngoscope and operating telescopes. The teeth were [...] procedure. Herman Mueller MD acted as my home based assistant | | | during this case as no qualified resident was involved for any of | | | the procedure. DISPOSITION: Mr. Mahmood was returned to Anesthesia | | | for awakening and transferred to the PACU. He tolerated the | | | procedure extremely well. Pasquale Moscoso M.D. | | | Power Plant Assistant Laryngology and Head & Neck Surgery | | + + + LARYNGOSCOPY, DIRECT, DIAGNOSTIC, OPERATING TELESCOPE (01/16/2018 10:42 PM PDT) + + + | Narrative | Performed At | + + + | Pasquale Moscoso MD 01/16/2018 10:58 PM DATE: 01/16/2018 | | | SURGEON: Pasquale Moscoso MD PROFESSOR OF OCEANOGRAPHY SURGEON: Herman Mueller | | | PREOPERATIVE [...] cell carcinoma by biopsy confirmed here at [facility]. We have | | | discussed [...] direct microlaryngoscopy using the | | | [employer] laryngoscope and operating telescopes. The teeth were [...] procedure. Herman Mueller MD acted as my home based assistant | | | during this case as no qualified resident was involved for any of | | | the procedure. DISPOSITION: Mr. Mahmood was returned to Anesthesia | | | for awakening and transferred to the PACU. He tolerated the | | | procedure extremely well. Pasquale Moscoso M.D. | | | Power Plant Assistant Laryngology and Head & Neck Surgery | | + + + X-RAY PORTABLE CHEST 1 VIEW (01/16/2018 6:51 PM PDT) + + | Specimen | + + | | + + + + + | Narrative | Performed At | + + + | STUDY: [place] CHEST 1 VIEW HISTORY: Subcoracoid partial laryngectomy [...] Interface - 01/17/2018 8:49 AM PDT STUDY: [place] CHEST 1 | | VIEWHISTORY: Subcoracoid partial [...] [facility] | [address] | [place], [place] | | | [facility] | [address] | [address] | | | TESTS | | | [...] | | | | | | number [id number]. Neck, | | | | | | [...] partial | | | | | | gafnjn-antnrjv-zgmvaxle | | | | | | laryngectomy [...] is | | | | | | submitted.Nuclear Radiation Engineer | | | | | | sections [...] | | | | | | [employer] sales representative | | | | | | [...] | + + + + + | [facility] | [address] | [place] [address] | | | PATHOLOGY | [address] [...] [facility] | [address] | [place] [address] | | | SERVICES, | [address] [...] [facility] | [address] | [place], [place] | | | CARDIOLOGY | [facility] | [address] | | + + + + + [...] - [facility] | [address] | [place], [place] | | | [facility] | [address] | [address] | | | TESTS | | | [...] | + + + + + | [facility] | [address] | [place] [address] | | | SERVICES, CORE | [address] [...] [facility] | [address] | [place] [address] | | | SERVICES, | [address] [...] [facility] | [address] | [place] [address] | | | SERVICES, | [address] [...] + + | [facility] | [address] [facility] | [place] [address] | | | SERVICES, CORE | [address] [...] | | | LABORATORY | | | [facility] | | | SERVICES, | | | [...] | + + + + + | [facility] | [address] | [place] [address] | | | [address] | [...]
--- OUTSIDE RECORDS SUMMARY | ~2019-10-09 | XMS | Encounter Summary ---
Demographics + + + | Address | [address] | | | [place] [address] | + + + | Home Phone [...] Team Providers + +------+ + | Care Revenue Agent Name | Role | Phone | + [...] + + | 09/06/ | Hospital | [facility] | Naida Burnette | Malignant neoplasm | | 2018 | Encounter | [facility] | MD Brad [address] | of glottis (HCC) | | | | [facility] [address] | [place], [place] | (Primary Dx) | | | | [address] | [address] | | | | | [place] [address] | | | | | | [phone] | | | +--------+ + + + [...] daily for 21 days. 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
--- OUTSIDE RECORDS SUMMARY | ~2019-10-09 | XMS | Encounter Summary ---
Demographics + + + | Address | [address] | | | [place] [address] | + + + | Home Phone [...] Team Providers + +------+ + | Care Buhr Mill Operator Name | Role | Phone | [...] | (HCC) | [address] | [address] | | | | | Procedures | [place], | [place], | | | | | OT cancer | [place] [address] | [place] [address] | | | | | | Phone: | Phone: | | | | | | [phone] | [phone] | | | | | | Fax: | Fax: | | | | | | [phone] | [phone] | +--------+ + + + + + [...] | | [facility] [address] | [place], [place] | | | | | [address] [place] | [address] | | | | | [place] [address] | | | | | | [phone] | | | +--------+ + + + [...] | | | | | | [place], [place] | | | | | | [address] | | | | | | | [...]
--- OUTSIDE RECORDS SUMMARY | ~2019-10-09 | XMS | Encounter Summary ---
Demographics + + + | Address | [address] | | | [place] [address] | + + + | Home Phone [...] Providers + +------+ + | Care Chief Catalyst Operator Name | Role | Phone | [...] | | | [address] | [address] | | | | | [place] [address] | | | | | | [phone] | | | +--------+ + + + [...] [place] | | | | | | [id number] | | | | | | | | +--------+ + + + + documented as of this encounter Visit Diagnoses Not on filedocumented in this encounter"
--- OUTSIDE RECORDS SUMMARY | ~2019-10-09 | XMS | Encounter Summary ---
Demographics + + + | Address | [address] | | | [place] [address] | + + + | Home Phone | | + + + | Preferred Language | Unknown | + + + | Marital Status | | + + + | Roman Catholic Affiliation | NRP | + + + | Race | White | + + + | Ethnic Group | Not or | + + + Author + + + | Author | [facility] | + + + | Organization | [facility] | + + + | Address | Unknown | + + + | Phone | Unavailable | + + + Support + + + + + | Name | Relationship | Address | Phone | + + + + + | Cecile Mahmood | ECON | [address] | | | | | [place] [address] | | + + + + + Care Team Providers + +------+ + | Care Mergers And Acquisitions Associate Name | Role | Phone | + [...] + + | 01/16/ | Hospital | [facility] [address] | Pasquale Moscoso | | | 2018 - | Encounter | [place] Mailcode: | MD [place] [address] | | | | | [id number] Padmini | [address] | | | 01/23/ | | [place], | [place], [place] | | | 2018 | | [place] [address] | [address] | | | | | [phone] | [phone] | | | | | | | [...] chronic pain (close follow up with his [facility] doctor). The patient had stable respiratory status on 3 Liters of supplement O2 (provided at [facility] emergency department). The patient was evaluated by speech language [...] when in direct sunli ght ORAL CARE [place] your teeth as you would normally, but try not to stretch the lips as you brush. It is important to use the Peridex (chlorhexidine gluconate) or equivalent mouthrinse twice per d ay until you see your doctor back in the clinic. TRACH CARE: If your trach comes out and you have difficulty breathing call 911 or proceed to the [facility] ER immediately. If the trach is dislodged [...] concerns. Call the [facility] for Voice & Swallowing at [phone] for difficulty breathing or unusual shortness of breath , excessive bleeding, drainage at the operative site, fevers, chills, increased pain that is not relieved by pain medications, persistent nausea or vomit ing. FOLLOW-UP: 02/06/2018 10:00 AM Steven GONZALEZ Otolaryngoangel 02/06/2018 11:30 AM Pasquale Moscoso MD ENTCHERYL Otolaryngoangel HOW TO REACH US: Tuesday- Tuesday from 8:00am to 4:30pm, call the Otolaryngology clinic at [phone]. After hours, weekends, and holidays, call the [facility] manual control auger press operator at [phone] and as k to have the ENT doctor on-call paged Future Appointments Date Time Provider Department Center 02/06/2018 10:00 AM Steven GONZALEZ Otolarynmarcelle 02/06/2018 11:30 AM Pasquale Moscoso MD ENTLADemario Otolaryngoangel Consults obtained:PT/OT, ENT PAYABLE REPRESENTATIVE, nutrition, Respiratory data processing systems project planner Pertinent imaging:In [facility] Pertinent labs: CBC with diff [...] and Neck Surgery Mail Code PV[address] [place] [address] Pager [phone] Consult/Night/Weekend Pager: [phone] documented in this encounter Discharge Instructions Instructions [...] while you go through treatment. Call the [employer] ( ) or visit [...] with your doctor, counselor, or other [facility] professional. If you are vomiting or [...] Neck Cancer: Care Instructions", log into your [employer] accoun t at [email or web address]. You can enter I202 in the "[employer] Library" search box. Not on [employer]? Review the BuzzElementhart section of your After Visit Summary for directions on ho w to sign up. Current as of: February 25, 2017 Content Version: 11.5 1104-1799 [employer]. Care instructions adapted under license by [facility]. If you have questions about a medical condition or this instr uction, always ask your healthcare professional. [employer] disclaims any carlos anty or liability for [...] or dog food bags, or a vacuum janitor and cleaner. ? Ask your doctor when you [...] doctor if you can take an o fzp-wwp-glfbfix medicine. ? If you think your pain [...] to Expect at Home", log into your [employer] account a t [email or web address]. You can enter I060 in the "[employer] Library" search box. Not on [employer]? Review the [employer] section of your After Visit Summary for directions on red w to sign up. Current as of: February 25, 2017 Content Version: 11.5 1936-9670 [employer]. Care instructions adapted under license by [facility]. If you have questions about a medical condition or this instr uction, always ask your healthcare professional. [employer], [facility] disclaims any carlos anty or [...] sober up day--on purpose. 2.6 Avoiding The Eye-Certified Nursing Assistant If you sometimes tend to drink the morning after then it is good to have a plan to avoid th e eye-porter used car lot. One thing which can help is to [...] Will f/u post DC. Steven Vidal, PhD, CCC-PAYABLE REPRESENTATIVE [facility] Dept. of Otolaryngology, PV- [address] [place] [address] [facility] Ronni Borjas MD - 01/22/2018 9:18 AM PDTFormatting of this note might be different fr om the original. Head and Neck Surgery Inpatient Daily Progress Note: Date: 01/22/2018 Primary Care Provider: Daniel Cannon MD Admission Date: 01/16/2018 RONNI MAHMOOD, [id number] Hospital Day #6 SUBJECTIVE INTERVAL EVENTS: -overnight [...] compression dressing day prior to discharge -ENT PAYABLE REPRESENTATIVE to follow for communication and spitting trials -Peridex for oral care #Trach care: -Continue 6cfs trach -RT DC paraplanner following for trach supplies -ENT PAYABLE REPRESENTATIVE working with pt spitting trials #FEN/GI -Follow [...] PGY-3 Otolaryngology/ Head & Neck Surgery Pager [phone] Associated attestation - Casper Wright MD - 01/22/2018 10:08 AM PDT PATIENT NAME: Ronni Mahmood MR#: [id number] : 1970 PRIMARY CARE PROVIDER: Daniel Cannon [...] periods of aphonia. Speech was without dysarthria PRODUCT [employer]NAGEMENT INTERNS[employer]IP. DIETARY STATUS: PEG for all nutrition/hydration/medication. Prior [...] Protocol and communication needs. May Newsome MS, CF-PAYABLE REPRESENTATIVE Speech-Language Pathology Fellow [facility] Otolaryngology, Head and Neck Surgery Pending Sale To [facility] [phone] Callum Tran MD - 8:17 AM PDT Head and Neck Surgery Inpatient Daily Progress Note: Date: 01/21/2018 Primary Care Provider: Daniel Cannon MD Admission Date: 01/16/2018 RONNI MAHMOOD, [id number] Hospital Day #5 SUBJECTIVE INTERVAL EVENTS: -No [...] compression dressing day prior to discharge -ENT PAYABLE REPRESENTATIVE to follow for communication and spitting trials -Peridex for oral care #Trach care: -Continue 6cfs trach -RT DC paraplanner following for trach supplies -ENT PAYABLE REPRESENTATIVE working with pt spitting trials #FEN/GI -Follow [...] Oconnell MD R4 Otolaryngology-Head and Neck Surgery Pending Sale To [facility] Pager [phone] Associated attestation - Casper Wright MD - 01/22/2018 8:03 AM PDT PATIENT NAME: Ronni Mahmood [facility] MR#: [id number] : 1970 PRIMARY CARE PROVIDER: Daniel Cannon MD I have reviewed the resident's note for this day's hospitalization and I have examined Mr. Mahmood. ASSESSMENT: Mr. Mahmood remains hospitalized for postoperative care. PLAN: I agree with the resident's findings, assessment, and plans as outlined. Casper Wright MD, FACS Otolaryngology-Head & Neck Surgery Ruth Marinelli, PAYABLE REPRESENTATIVE - 01/20/2018 3:43 PM PDTFormatting of this [...] periods of aphonia. Speech was without dysarthria [employer]NS[employer]IP. DIETARY STATUS: PEG for all nutrition/hydration/medication. Prior [...] Protocol and communication needs. Ruth Marinelli, Ph.D., [facility]-PAYABLE REPRESENTATIVE [employer] Director, [facility] Sw[facility]ing Otolaryngology, Head and Neck Surgery Pending Sale To [facility] [phone] Lamin Pruitt PA -C - 01/20/2018 9:38 AM PDT DOS: 01/19/2018 Head and Neck Surgery Inpatient Daily Progress Note: Primary Care Provider: Daniel Cannon MD Admission Date: 01/16/2018 RONNI MAHMOOD, [id number] Hospital Day #4 SUBJECTIVE INTERVAL EVENTS: -No [...] compression dressing during the trach change -ENT PAYABLE REPRESENTATIVE to follow for communication and spitting trials -Peridex for oral care #Trach care: -Downsize trach on Tuesday to a 6 cfs today -RT on board with trach supplies -Pt learning to take care of the trach -ENT PAYABLE REPRESENTATIVE working with pt spitting trials #FEN/GI -Lytes [...] LAMIN OSULLIVAN PA-C Otolaryngology-Head and Neck Surgery Pending Sale To [facility] Pager [phone] May Saul SLP - 01/19/2018 1:02 PM [...] periods of aphonia. Speech was without dysarthria [employer]NSHIP. DIETARY STATUS: PEG for all nutrition/hydration/medication. Prior [...] Protocol and communication needs. May Newsome MS, CF-PAYABLE REPRESENTATIVE Speech-Language Pathology Fellow Pending Sale To [facility] Dept. of Otolaryngology, [address] [place] [address] Lamin Pruitt PA-C - 01/19/2018 7:48 AM PDT DOS: 01/18/2018 Head and Neck Surgery Inpatient Daily Progress Note: Primary Care Provider: Daniel Cannon MD Admission Date: 01/16/2018 RONNI MAHMOOD, [id number] Hospital Day #3 SUBJECTIVE INTERVAL EVENTS: -No [...] staff and placed on nursing communication) -ENT PAYABLE REPRESENTATIVE to follow for communication and spitting trials -Peridex for oral care #Trach care: -Downsize trach on Tuesday to a 6 cfs -RT on board with trach supplies -Pt learning to take care of the trach -ENT PAYABLE REPRESENTATIVE working with pt spitting trials #FEN/GI -Lytes [...] LAMIN OSULLIVAN PA-C Otolaryngology-Head and Neck Surgery [facility] Pager [phone] Bina Flowers MA, CCC-PAYABLE REPRESENTATIVE - 01/18/2018 10:47 AM PDTFormatting of this [...] eriods of aphonia. Speech was without dysarthria PR[employer] INTERNSHIP. DIETARY STATUS: PEG for all nutrition/hydration/medication. Prior [...] Protocol and communication needs. Bina Chavez M.S. CCC-PAYABLE REPRESENTATIVE Speech-Language Pathologist Pending Sale To [facility] Dept. of Otolaryngology, [address] [facility] [place] [address] uaquin Osullivan PA-C - 01/18/2018 5:44 AM PDTFormatting of this note might be different from the origina l. DOS: 01/17/2018 Head and Neck Surgery Inpatient Daily Progress Note: Primary Care Provider: Daniel Cannon MD Admission Date: 01/16/2018 RONNI MAHMOOD, [id number] Hospital Day #2 SUBJECTIVE INTERVAL EVENTS: -No [...] Intake/Output Summary (Last 24 hours) at 01/18/18 0500 Last data filed at 01/18/18 0533 Gross [...] pain management -continue DERRICK neck drains -ENT PAYABLE REPRESENTATIVE to follow for communication and spitting trials -Peridex for oral care #Trach care: -Downsize trach either Tuesday or Tuesday -RT on board with trach supplies -Pt learning to take care of the trach -ENT PAYABLE REPRESENTATIVE working with pt spitting trials #FEN/GI -Replaced [...] LAMIN OSULLIVAN PA-C Otolaryngology-Head and Neck Surgery Pending Sale To [facility] Pager [phone] amin Osullivan PA-C - 01/17/2018 12:37 PM PDT DOS: 01/17/2018 Head and Neck Surgery Inpatient Daily Progress Note: Primary Care Provider: Daniel Cannon MD Admission Date: 01/16/2018 RONNI MAHMOOD, [id number] Hospital Day #1 SUBJECTIVE INTERVAL EVENTS: -No [...] pain management -continue DERRICK neck drains -ENT PAYABLE REPRESENTATIVE to follow for communication and spitting trials [...] LAMIN OSULLIVAN PA-C Otolaryngology-Head and Neck Surgery Pending Sale To [facility] Pager [phone] rRuth cavanaugh S LP - 01/17/2018 9:49 [...] periods of aphonia. Speech was without dysarthria PRODUCT MA[employer]NSHIP. DIETARY STATUS: PEG for all nutrition/hydration/medication. Prior [...] Protocol and communication needs. Ruth Marinelli, Ph.D., [facility]-PAYABLE REPRESENTATIVE Furnace [employer]razer Director, [facility] Otolaryngology, Head and Neck Surgery Pending Sale To [facility] Pager [phone] Pasquale Schwab MD - 01/17/2018 9:41 AM PDT PATIENT NAME: Ronni Mahmood [facility] MR#: [id number] : 1970 PRIMARY CARE PROVIDER: Daniel Cannon [...] Intake/Output Summary (Last 24 hours) at 01/17/18 0972 Last data filed at 01/17/18 0645 Gross [...] egin tracheotomy tube teaching. Pasquale Moscoso M.D. [employer] Laryngology and Head & Neck Surgery Electronically [...] (R2) Otolaryngology - Head and Neck Surgery [facility] Pager: [phone] documented in this en counter Plan of Treatment +--------+---------+ + + + | Date | Type | Specialty | Care Team | Description | +--------+---------+ + + + | 03/19/ | Office | Otolaryngology | Pasquale Moscoso | | | 2019 | Visit | | MD [place] [address] | | | | | | [address] | | | | | | [place], [place] | | | | | | [address] | | | | | | [phone] | | | | | | | [...] | | Results for this | | [id number] | e | 2:22 PM | | [...] | | Results for this | | [id number] | e | 10:42 PM | | [...] | | | SURGEON: Pasquale Moscoso MD THERMODYNAMICIST(S): Herman Mueller MD | | | PREOPERATIVE [...] carcinoma confirmed with biopsy and re-confirmed at [facility]. Options | | | including organ [...] Ervin NORRIS acted as Dr. Moscoso's assistant mechanic during the case as no | | [...] | | | SURGEON: Pasquale Moscoso MD THERMODYNAMICIST(S): Herman Mueller MD | | | PREOPERATIVE [...] carcinoma confirmed with biopsy and re-confirmed at [facility]. Options | | | including organ [...] Ervin NORRIS acted as Dr. Moscoso's assistant mechanic during the case as no | | [...] | | | SURGEON: Pasquale Moscoso MD THERMODYNAMICIST(S): Herman Mueller MD | | | PREOPERATIVE [...] carcinoma confirmed with biopsy and re-confirmed at [facility]. Options | | | including organ [...] Jojo Mueller MD acted as Dr. Moscoso's assistant mechanic during the case as no | | | qualified resident was involved for any of the procedure. | | | DISPOSITION: Mr. Mahmood was returned to Anesthesia for awakening and | | | transferred to the PACU. He tolerated the procedure extremely | | | well. Herman Mueller M.D. Laryngology Fellow | | | | | + + + PARTIAL [id number] LARYNGECTOMY (01/23/2018 2:22 PM PDT) + + + | Narrative | Performed At | + + + | Herman Berumen MD 01/29/2018 9:32 PM DATE: 01/16/2018 | | | SURGEON: Pasquale Moscoso MD THERMODYNAMICIST(S): Herman Mueller MD | | | PREOPERATIVE [...] carcinoma confirmed with biopsy and re-confirmed at [facility]. Options | | | including organ [...] | | | DRAINS/PROSTHETICS/INJECTABLES: 2 x 10 Slade-Lbas type drain(s) | | | COMPLICATIONS: none [...] Ervin NORRIS acted as Dr. Moscoso's assistant mechanic during the case as no | | [...] | | | SURGEON: Pasquale Moscoso MD THERMODYNAMICIST(S): Herman Mueller MD | | | PREOPERATIVE [...] carcinoma confirmed with biopsy and re-confirmed at [facility]. Options | | | including organ [...] Ervin NORRIS acted as Dr. Moscoso's assistant mechanic during the case as no | | [...] | | | SURGEON: Pasquale Moscoso MD THERMODYNAMICIST(S): Herman Mueller MD | | | PREOPERATIVE [...] carcinoma confirmed with biopsy and re-confirmed at [facility]. Options | | | including organ [...] direct | | | microlaryngoscopy using the [employer] laryngoscope and operating | | | telescopes [...] Ervin NORRIS acted as Dr. Moscoso's assistant mechanic during the case as no | | [...] [facility] | [address] | [place] [address] | | | SERVICES, CORE | [address] [...] [facility] | [address] | [place] [address] | | | SERVICES, CORE | [address] | | | + + + + + MAGNESIUM, PLASMA (01/23/2018 4:43 AM PDT) + +-------+ + + + | Component | Value | Ref Range | Performed | Pathologist | | | | | At | Signature | + +-------+ + + + | MAGNESIUM,P | 2.6 | 1.6 - 2.6 mg/dL | [facility] | | | LASMA | | | [...] | + + + + + | [facility] | [address] | [place] [address] | | | SERVICES, CORE | PARK [...] | + + + + + | [facility] | [address] [facility] | [place] [address] | | | SERVICES, CORE | PARK [...] | + + + + + | [facility] | [address] | [place] [address] | | | SERVICES, CORE | ASUNCION [...] [facility] | [address] | [place] [address] | | | SERVICES, CORE | ASUNCION [...] | + + + + + | [facility] | [address] | [place] [address] | | | SERVICES, NUNU | ASUNCION [...] | + + + + + | [facility] | [address] | [place] [address] | | | SERVICES, CORE | ASUNCION [...] [facility] | [address] | [place] [address] | | | SERVICES, CORE | PARK [...] | + + + + + | [facility] | [address] | [place] [address] | | | SERVICES, CORE | ASUNCION [...] [facility] | [address] | [place] [address] | | | SERVICES, CORE | PARK [...] [facility] | [address] | [place] [address] | | | SERVICES, CORE | PARK [...] | + + + + + | [facility] | [address] | [place] [address] | | | SERVICES, CORE | PARK [...] | + + + + + | [facility] | [address] | [place] [address] | | | SERVICES, CORE | [address] | | | + + + + + MAGNESIUM, PLASMA (01/20/2018 5:14 AM PDT) + +-------+ + + + | Component | Value | Ref Range | Performed | Pathologist | | | | | At | Signature | + +-------+ + + + | MAGNESIUM,P | 2.2 | 1.6 - 2.6 mg/dL | [facility] | | | LASMA | | | [...] [facility] | [address] | [place] [address] | | | SERVICES, NUNU | ASUNCION [...] | + + + + + | [facility] | [address] [facility] | [place] [address] | | | SERVICES, CORE | ASUNCION [...] [facility] | [address] | [place] [address] | | | SERVICES, CORE | PARK [...] | + + + + + | [facility] | [address] | [place] [address] | | | CELINA, NUNU | PARK [...] | + + + + + | [facility] | [address] | [place] [address] | | | SERVICES, CORE | PARK [...] [facility] | [address] | [place] [address] | | | SERVICES, CORE | PARK [...] | + + + + + | [facility] | [address] | [place] [address] | | | SERVICES, CORE | PARK [...] [facility] | [address] | [place] [address] | | | SERVICES, CORE | PARK [...] [facility] | [address] | [place] [address] | | | SERVICES, CORE | PARK [...] + + | Performing | Address | City/State[facility] | Phone Number | | Organization | | | | + + + + + | [facility] | [address] | [place] [address] | | | SERVICES, [facility] | [address] | | | + [...] | + + + + + | [facility] | [address] | [place] [address] | | | SERVICES, CORE | ASUNCION [...] [facility] | [address] | [place] [address] | | | SERVICES, CORE | PARK [...] | + + + + + | [facility] | [address] | [place] [address] | | | NUNU PATRICK | PARK [...] | + + + + + | [facility] | [address] | [place] [address] | | | SERVICES, CORE | [address] | | | + + + + + TRACHEOTOMY (01/16/2018 10:42 PM PDT) + + + | Narrative | Performed At | + + + | Pasquale Moscoso MD 01/16/2018 10:58 PM DATE: 01/16/2018 | | | SURGEON: Pasquale Moscoso MD THERMODYNAMICIST SURGEON: Herman Mueller, | | | PREOPERATIVE [...] 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 We have | | | discussed [...] direct microlaryngoscopy using the | | | [employer] laryngoscope and operating telescopes. The teeth were [...] Herman Mueller MD acted as my assistant mechanic | | | during this case as no qualified resident was involved for any of | | | the procedure. DISPOSITION: Mr. Mahmood was returned to Anesthesia | | | for awakening and transferred to the PACU. He tolerated the | | | procedure extremely well. Pasquale Moscoso M.D. | | | [employer] Laryngology and Head & Neck Surgery | | + + + MODIFIED RADICAL NECK DISSECTION (01/16/2018 10:42 PM PDT) + + + | Narrative | Performed At | + + + | Pasquale Moscoso MD 01/16/2018 10:58 PM DATE: 01/16/2018 | | | SURGEON: Pasquale Moscoso MD THERMODYNAMICIST SURGEON: Herman Mueller | | | PREOPERATIVE [...] Herman Mueller MD acted as my assistant mechanic | | | during this case as no qualified resident was involved for any of | | | the procedure. DISPOSITION: Mr. Mahmood was returned to Anesthesia | | | for awakening and transferred to the PACU. He tolerated the | | | procedure extremely well. Pasquale Moscoso M.D. | | | [employer] Laryngology and Head & Neck Surgery | | + + + RECONSTRUCTION OF LARYNX AFTER PARTIAL LARYNGECTOMY (01/16/2018 10:42 PM PDT) + + + | Narrative | Performed At | + + + | Pasquale Moscoso MD 01/16/2018 10:58 PM DATE: 01/16/2018 | | | SURGEON: Pasquale Moscoso MD THERMODYNAMICIST SURGEON: Herman Mueller, | | | PREOPERATIVE [...] 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 We have | | | discussed [...] direct microlaryngoscopy using the | | | [employer] laryngoscope and operating telescopes. The teeth were [...] Herman Mueller MD acted as my assistant mechanic | | | during this case as no qualified resident was involved for any of | | | the procedure. DISPOSITION: Mr. Mahmood was returned to Anesthesia | | | for awakening and transferred to the PACU. He tolerated the | | | procedure extremely well. Pasquale Moscoso M.D. | | | [employer] Laryngology and Head & Neck Surgery | | + + + PARTIAL [id number] LARYNGECTOMY (01/16/2018 10:42 PM PDT) + + + | Narrative | Performed At | + + + | Pasquale Moscoso MD 01/16/2018 10:58 PM DATE: 01/16/2018 | | | SURGEON: Pasquale Moscoso MD THERMODYNAMICIST SURGEON: Herman Mueller | | | PREOPERATIVE [...] 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 We have | | | discussed [...] Herman Mueller MD acted as my assistant mechanic | | | during this case as no qualified resident was involved for any of | | | the procedure. DISPOSITION: Mr. Mahmood was returned to Anesthesia | | | for awakening and transferred to the PACU. He tolerated the | | | procedure extremely well. Pasquale Moscoso M.D. | | | [employer] Laryngology and Head & Neck Surgery | | + + + PERCUTANEOUS PLACEMENT OF GASTROSTOMY TUBE (01/16/2018 10:42 PM PDT) + + + | Narrative | Performed At | + + + | Pasquale Moscoso MD 01/16/2018 10:58 PM DATE: 01/16/2018 | | | SURGEON: Pasquale Moscoso MD THERMODYNAMICIST SURGEON: Herman Mueller | | | PREOPERATIVE [...] 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 We have | | | discussed [...] direct microlaryngoscopy using the | | | [employer] laryngoscope and operating telescopes. The teeth were [...] Herman Mueller MD acted as my assistant mechanic | | | during this case as no qualified resident was involved for any of | | | the procedure. DISPOSITION: Mr. Mahmood was returned to Anesthesia | | | for awakening and transferred to the PACU. He tolerated the | | | procedure extremely well. Pasquale Moscoso M.D. | | | [facility] [employer] Laryngology and Head & Neck Surgery | | + + + LARYNGOSCOPY, DIRECT, DIAGNOSTIC, OPERATING TELESCOPE (01/16/2018 10:42 PM PDT) + + + | Narrative | Performed At | + + + | Pasquale Moscoso MD 01/16/2018 10:58 PM DATE: 01/16/2018 | | | SURGEON: Pasquale Moscoso MD THERMODYNAMICIST SURGEON: Herman Mueller | | | PREOPERATIVE [...] 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 We have | | | discussed [...] direct microlaryngoscopy using the | | | [employer] laryngoscope and operating telescopes. The teeth were [...] Herman Mueller MD acted as my assistant mechanic | | | during this case as no qualified resident was involved for any of | | | the procedure. DISPOSITION: Mr. Mahmood was returned to Anesthesia | | | for awakening and transferred to the PACU. He tolerated the | | | procedure extremely well. Pasquale Moscoso M.D. | | | [facility] | | + + + X-RAY PORTABLE CHEST 1 VIEW (01/16/2018 6:51 PM PDT) + + | Specimen | + + | | + + + + + | Narrative | Performed At | + + + | STUDY: AK CHEST 1 VIEW HISTORY: Subcoracoid partial laryngectomy [...] Interface - 01/17/2018 8:49 AM PDT STUDY: AK CHEST 1 | | VIEWHISTORY: Subcoracoid partial [...] [facility] | [address] | [place], [place] | | | JOSTIN CANO OF SARAH | [facility] | [address] | | | TESTS | | | [...] | | | | | | number [id number]. Neck, | | | | | | [...] partial | | | | | | cfsxfk-eclwlwz-iyyyeccx | | | | | | laryngectomy [...] is | | | | | | submitted.[employer] | | | | | | sections [...] | | | | | | G8 manufacturers service representative | | | | | [...] + + | [facility] | [address] [facility] | [place] [address] | | | PATHOLOGY | [address] [...] [facility] | [address] | [place] [address] | | | SERVICES, | [address] [...] DEPT OF | [address] | [place], [place] | | | CARDIOLOGY | [address] | [address] | | + + + + + [...] - [facility] | [address] | [place], [place] | | | [place] [facility]ARE | [address] | [address] | | | TESTS | | | [...] [facility] | [address] | [place] [address] | | | SERVICES, CORE | [address] [...] [facility] | [address] | [place] [address] | | | SERVICES, | [address] [...] | + + + + + | [facility] | [address] | [place] [address] | | | SERVICES, | [address] [...] [facility] | [address] | [place] [address] | | | SERVICES, CORE | [address] [...] [facility] | [address] | [place] [address] | | | CELINA, NUNU | ASUNCION [...]
--- OUTSIDE RECORDS SUMMARY | ~2019-10-09 | XMS | Encounter Summary ---
Demographics + + + | Address | [address] | | | [place] [address] | + + + | Home Phone | | + + + | Preferred Language | Unknown | + + + | Marital Status | | + + + | Denominational Affiliation | Unknown | + + + | Race | Unknown | + + + | Ethnic Group | Unknown | + + + Author + + + | Author | [facility] | | | and [place] | + + + | Organization | [facility] | | [...] Team Providers + +------+ + | Care Medical Office Supervisor Name | Role | Phone | + +------+ + | Daniel Cannon MD | PCP | | + +------+ + Reason for Visit +--------+ + | Reason | Comments | +--------+ + | Asthma | | +--------+ + Encounter Details +--------+---------+ + + + | Date | Type | Department | Care Team | Description | +--------+---------+ + + + | 04/25/ | Office | [facility] | [place], | Asthma, moderate | | 2014 | Visit | PULMONARY [address] | Latisha Dominguez MD | persistent, | | | | [place], | | uncomplicated | | | | [place] [address] | | (Primary Dx); | | | | [phone] | | Heartburn; Allergic | | | | | | rhinitis; Tobacco | | | | | | abuse; Need for | | | | | | pneumococcal | | | | | | vaccination [...] + + + | Blood Pressure | 124/80 | 04/25/2014 8:55 AM | | | | | PDT | | + + + + + | Pulse | 99 | 04/25/2014 8:55 AM | | | | | PDT | | + + + + + | Temperature | - | - | | + + + + + | Respiratory Rate | - | - | | + + + + + | Oxygen Saturation | 96% | 04/25/2014 8:55 AM | | | | | PDT | | + + + + + | Inhaled Oxygen | - | - | | | Concentration | | | | + + + + + | Weight | 99 kg (218 lb 3.2 | 04/25/2014 8:55 AM | | | | oz) | PDT | | + + + + + | Height | 188 cm (6' 2") | 04/25/2014 8:55 AM | | | | | PDT | | + + + + + | Body Mass Index | 28.02 | 04/25/2014 8:55 AM | | | | | PDT | | + + + + + documented in this encounter Patient Instructions Patient Instructions Latisha Anaya MD - 04/25/2014 9:30 AM PDTStart on ranitidine (generic Zantac) 150mg every evening. Instructions for Avoidance of Reflux 1. Elevate the head of your bed about 5 inches, using a cinder block, or other device. 2. Avoid eating about 4 hours before bed. 3. Avoid lying down about 1 hour after eating. 4. Avoid drinking caffeine. 5. Avoid drinking alcohol. 6. Avoid eating fatty or spicy foods. 7. Your largest meal should be at breakfast or lunch, instead of dinner. 8. Avoid large bolus meals, and eat small amounts frequently throughout the day. Switch the Advair 250mcg to Advair 500mcg 1 inhalation twice daily, and make sure your rins e after using it. Think about quitting smoking and the Chantix. documented in this encounter Progress Notes Latisha Anaya MD - 04/25/2014 9:13 AM PDTFormatting of this note might be justina nt from the original. Pulmonary Follow Up Note HPI Ronni Chowdhury is a 43 y.o. male patient of Daniel Cannon here today [facility] At their last visit, we had decreased his Advair 250 mcg dose. They return today for rafael stevens follow up. Since last seen, they feel like their shortness of breath and wheezing has been pretty stab le. He has continued on the Advair 250 mcg dose. He has not required a course of prednisone for treatment. He has been seen in the emergency room. Their controller regimen consists of Advair 250 mcg 1 inhalation twice daily. He currently uses their albuterol 1 times a day. He reports he goes through a ProAir inhaler about 1 ever y 3 months on average. He does not have any nocturnal awakenings with shortness of breath o r wheezing. He does have a chronic cough, and does produce sputum most of the time. He has not had any hemoptysis. He does not have symptoms of nasal congestion, rhinorrhea and post nasal drip. He is not on for treatment of this. He does have symptoms of heartburn or acid reflux. He notes this occurs about one time per week. He does not take anything for this. He drinks about a 6 pack of beer a day and 2-4 cup s of coffee a day. He is still smoking about 1 ppd. He is still not interested in quitting. He does think abou t it, but he is not ready. Past Medical History Past Medical History Diagnosis [...] Clindamycin Medications: Outpatient Encounter Prescriptions as of 04/25/2014 Medication Sig Dispense Refill ADVAIR DISKUS 250-50 MCG/DOSE diskus inhaler inhale 1 dose by mouth twice a day 1 each 5 [DISCONTINUED] albuterol 2.5 mg/3 mL nebulizer solution inhale contents of 1 vial in ne bulizer once daily 90 mL 5 [DISCONTINUED] predniSONE (DELTASONE) 10 mg tablet Take 6 pills po day one then decreas e by 10 mg each day till gone 21 tablet 0 PROAIR HFA 108 (90 BASE) MCG/ACT inhaler inhale 1 to 2 puffs every 4 to 6 hours if need ed 8.5 g 4 Review of Systems Constitutional: Denies fever, chills, sweats, and change in weight. Eyes: Denies eye irritation. His vision is declining. ENT: Denies earache, decreased hearing, nosebleeds, sore throat, and hoarseness. Resp: See HPI. CV: Denies chest pain, palpitations, syncope, and peripheral edema. GI: Denies nausea, vomiting, and abdominal pain. : Denies difficulty emptying bladder. Musculoskeletal: Denies muscle cramps. Objective BP 124/80 | Pulse 99 | Ht 1.88 m (6' 2") | Wt 98.975 kg (218 lb 3.2 oz) | BMI 28.00 kg/m2 | SpO2 96% RA General Appearance: [...] muscle use, breath sounds are clear to asucultation bilaterally, no w heezes, crackles or rhonchi Chest Wall: No deformity Heart: Regular rate and rhythm, no murmur, rub or gallop Abdomen: Soft, non-tender, non-distended Extremities: No cyanosis, clubbing, or edema Pulses: Radial pulses 2+ and symmetric Skin: Warm and dry Lymph nodes: Cervical and supraclavicular nodes normal Data: Immunization History Administered Date(s) Administered INFLUENZA, PRESERVATIVE FREE IM 09/18/2012, 07/17/2013 Tetanus and diphtheria toxoids (Td) 07/03/2012 Assessment 1. Asthma, moderate persistent, uncomplicated - Albuterol use is above goal frequency, aver aging out to about one time per day. I think this is likely in large part to ongoing smoking , and possibly due to heartburn. We will reincrease his Advair to 500mcg dose. 2. Heartburn - Notes heartburn once weekly. I discussed the role of alcohol and caffeine in heartburn and provided some instructions for decreasing heartburn and reflux. We will start ranitidine in the evenings. 3. Allergic rhinitis - We reports good control and is not taking medications. 4. Tobacco abuse - Ongoing. Currently contemplative and expressed some interest in Chantix. He is a good candidate once he is committed to quitting and we discussed the risks and bene fits of this today. He would need usual monitoring, and we discussed nightmares, depression, suicidality today. 5. Need for pneumococcal vaccination - Given today based on updated CDC guidelines from 200 9 adding asthma. Plan 1.Change Advair to 500mcg dose, rinse with use. 2.Continue ProAir, refilled today. 3.Start ranitidine 150mg in the evenings. 4. Anti reflux instructions provided. 5. Discussed smoking cessation. 6. Pneumococcal vaccine given today. He was advised to call if new pulmonary symptoms were to develop. Return to clinic in 6 months, or sooner with concerns. CC: Daniel Cannon Portions of this report were transcribed using voice recognition software. Every effort wa s made to ensure accuracy; however, inadvertent computerized detective automobile section errors may be pre sent. Electronically signed by: Latisha Anaya MD 04/25/2014 9:13 documented in t his encounter Plan of [...] [place] | | | | | | [address] | | | | | | | | +--------+ + + + + documented as of this encounter Visit Diagnoses + + | Diagnosis | + + | Asthma, moderate persistent, uncomplicated - Primary | + + | Heartburn | + + | Allergic rhinitis Allergic rhinitis, cause unspecified | + + | Tobacco abuse Tobacco use disorder | + + | Need for pneumococcal vaccination Need for prophylactic vaccination against | | streptococcus pneumoniae (pneumococcus) | + + documented in this encounter
--- OUTSIDE RECORDS SUMMARY | ~2019-10-09 | XMS | Encounter Summary ---
Demographics + + + | Address | [address] | | | [place] [address] | + + + | Home Phone | | + + + | Preferred Language | Unknown | + + + | Marital Status | | + + + | Quaker Affiliation | Unknown | + + + | Race | Unknown | + + + | Ethnic Group | Unknown | + + + Author + + + | Author | [facility] | | | and [place] | + + + | Organization | [facility] | | [...] Team Providers + +------+ + | Care Line Supply Name | Role | Phone | + +------+ + | Daniel Cannon MD | PCP | | + +------+ + Encounter Details +--------+ + + + + | Date | Type | Department | Care Team | Description | +--------+ + + + + | 07/19/ | Hospital | [facility] | aNida Burnette | | | 2018 | Encounter | MED CTR RADIATION | MD Brad [address] | | | | | ONCOLOGY [address] [place] | | | | | [place], | [address] | | | | | [place] [address] | | | | | | [phone] | | | +--------+ + + + [...]
--- OUTSIDE RECORDS SUMMARY | ~2019-10-09 | XMS | Encounter Summary ---
Demographics + + + | Address | [address] | | | [place] [address] | + + + | Home Phone | | + + + | Preferred Language | Unknown | + + + | Marital Status | | + + + | Druze Affiliation | Unknown | + + + | Race | Unknown | + + + | Ethnic Group | Unknown | + + + Author + + + | Author | [facility] | | | and [place] | + + + | Organization | [facility] | | | [...] Team Providers + +------+ + | Care Thickener Operator Name | Role | Phone | [...] | | | | cancer (HCC) | [address] [place] | | | | | Procedures | [facility] | MEDICAL | | | | | PET CT | [place] | [place] [address] | | | | | Skull Base | [place], [place] | [place] | | | | | To Mid Thigh | [address] | [place], | | | | | | Phone: | [place] [address] | | | | | | [phone] | Phone: | | | | | | Fax: | [phone] | | | | | | [phone] | Fax: | | | | | | | [phone] | +--------+--------+ + + + + Reason [...] | cancer (HCC) | [address] | [place] | | | | | Procedures | [facility] | | | | | PET CT | [place] | [place] [address] | | | | | Skull Base | [place], [place] | [place] | | | | | To Mid Thigh | [address] | [place], | | | | | | Phone: | [place] [address] | | | | | | [phone] | Phone: | | | | | | Fax: | [phone] | | | | | | [phone] | Fax: | | | | | | | [phone] | +--------+--------+ + + + + Encounter Details +--------+ + + + + | Date | Type | Department | Care Team | Description | +--------+ + + + + | 06/15/ | Hospital | [facility] | Pasquale Moscoso | Laryngeal cancer | | 2018 | Encounter | MED CTR PET SCAN | MD Sidney [address] | (HCC) | | | | [address] | [address] | | | | | [place] [address] | [place], [place] | | | | | [phone] | [address] | | | | | | [phone] | | | | | | | [...] | | | | | [place] | | | | | | [address] | | | | | | | [...] CT 12/15/2017 from the | | | [facility]. Technique: PET/CT imaging was performed from the [...] | | Neck CT 12/15/2017 from the [facility].Technique: PET/CT imaging was performed | | from [...] millicur | | | | Intravenous, ONCE, [facility] 06/15/18 at | | AM PDT | ies | | | | 0930, For 1 dose | | | | | | + +--------+ + +------+------+ +---+---+ | | | +---+---+ documented in this encounter"
--- OUTSIDE RECORDS SUMMARY | ~2019-10-09 | XMS | Encounter Summary ---
Demographics + + + | Address | [address] | | | [place] [address] | + + + | Home Phone [...] | | | | [place] [address] | | + + + + + Care Team Providers + +------+ + | Care Distillation Operator Name | Role | Phone | [...] + + + + | 06/20/ | Hospital | [facility] [address] | Pasquale Moscoso | | | 2018 - | Encounter | Williams Mailcode: | MD [place] [address] [facility] | | | | | [id number] | [facility] | | | 06/21/ | | [place], | [place], [place] | | | 2018 | | [place] [address] | [address] | | | | | [phone] | [phone] | | | | | | | [...] until no medication remains. Please contact prescr faye with any questions, concerns, or for further [...] for further guidance regarding this medication. Available gzli-oqa-sjlfvnr. CHANGE how you take these medications acetaminophen [...] exceed more than 4g per day. Available wvnn-rab-mljgneq. You have been taking this medication, 1000 [...] for further guidance regarding this medication. Available usvu-vcg-atncjyz. CONTINUE taking these medications albuterol 90 mcg/actuation [...] contact your local doctor Daniel Cannon MD ([facility]) for drain removal. Protocol for drain removal if <30 ml within 24 hrs. 07/10/2018 9:00 AM Steven Vidal [facility] Otolaryngolo 07/10/2018 9:45 AM Pasquale Moscoso MD [facility] Otolaryngolo 07/21/2018 11:15 AM Pasquale Moscoso MD [facility] Otolaryngo HOW TO REACH US: Tuesday- Tuesday from 8:00am to 4:30pm, call the Otolaryngology clinic at [phone]. After hours, weekends, and holidays, call the [facility] orange picker machine operator at [phone] and as k to have the ENT doctor on-call paged Future Appointments Date Time Provider Department Center 07/10/2018 9:00 AM Steven GONZALEZ Otolaryngolo 07/10/2018 9:45 AM MD POLINA [facility] Otolaryngoangel 07/21/2018 11:15 AM Pasquale Moscoso MD [facility] Otolaryngo Vitals on discharge: Ht 1.88 m (6' [...] and Neck Surgery Mail Code PV01 [address] [place] [address] Pager [phone] Consult/Night/Weekend Pager: [phone] documented in this encounter Discharge Instructions Instructions Patti Hugo RN - 06/21/2018Patient Education Materials: when to victor manuel reid MD, discharge paperwork, medications Additional Instructions: incision care, Dysphagia diet Learning About the Diet for Swallowing Problems What are swallowing problems? Difficulty swallowing is also called dysphagia (say "ckk-BUP-pcx-fabian"). It is most often a s ign [...] and how thick to make the liquids. [place]-thick liquids leave a thin coating when they [...] Diet for Swallowing Problems", log into your DramaFever account at [email or web address]. You can enter R741 in the "BlueLithium Library" search box. Not on Browserling? Review the Browserling section of your After Visit Summary for directions on red w to sign up. Current as of: September 05, 2017 Content Version: [id number] [employer]. Care instructions adapted under license by [facility] [place]. If you have questions about a medical condition or this instr uction, always ask your healthcare professional. [employer] disclaims any carlos anty or liability for [...] "Learning About Swallowing Problems", log into your Browserling account at [email or web address]. You can enter D018 in the "BlueLithium Library" search box. Not on Browserling? Review the MyChart section of your After Visit Summary for directions on red dillard to sign up. Current as of: September 05, 2017 Content Version: [id number] [employer]. Care instructions adapted under license by [facility] [place]. If you have questions about a medical condition or this instr uction, always ask your healthcare professional. [employer] disclaims any carlos anty or liability for your use of this information. Discharge Nurse: Patti Hugo RN Date: 06/21/2018 Discharge Time: 8:43 AM AttachmentsThe following attachments cannot be sent through Care Everywhere.Post-op Infecti on (Latvian)documented in this encounter Medications at Time of [...] encounter Progress Notes Steven Vidal SLP - 06/21/2018 10:29 AM PDTENT SPEECH PATHOLOGY-INPATIENT NOTE Order rec'd. Chart reviewed. 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 P t feels much better s/p procedure and reports that voice, breathing and swallowing are back to baseline. Denies any concerns. Will go home today and follow-up with Dr. Moscoso in 1 [facility]. No other needs at this time. Steven Vidal, PhD, [facility] PROFESSIONAL [facility] [place] Dept. of Otolaryngology, [address] [facility] [place] [address] do cumented in this encounter Plan of Treatment +--------+---------+ + + + | Date | Type | Specialty | Care Team | Description | +--------+---------+ + + + | 03/19/ | Office | Otolaryngology | Pasquale Moscoso | | | 2019 | Visit | | MD [place] [address] [facility] | | | | | | [address] | | | | | | [place], [place] | | | | | | [address] | | | | | | [phone] | | | | | | | [...] NAME: | | | Ronni Chowdhury MR#: [id number] : 1970 Date: 06/20/2018 | | | Attending Surgeon: Pasquale Moscoso M.D. Photographic Intelligence Officer(s): | | | Augustine Leal MD; Lyndsey [...] procedure. Pasquale Moscoso M.D. | | | Parts Class[facility] Laryngology and Head & Neck Surgery Tel:[phone] | | | [phone] | | + + + DIRECT LARYNGOSCOPY WITH BIOPSY WITH MICROSCOPE (06/20/2018 6:50 PM PDT) + + + | Narrative | Performed At | + + + | Pasquale Moscoso MD 06/22/2018 2:42 PM PATIENT NAME: | | | Ronni Chowdhury MR#: [id number] : 1970 Date: 06/20/2018 | | | Attending Surgeon: Pasquale Moscoso M.D. Photographic Intelligence Officer(s): | | | Augustine Leal MD; Lyndsey [...] procedure. Pasquale Moscoso M.D. | | | [facility] Class[facility] Laryngology and Head & Neck Surgery Tel:[phone] | | | [phone] | | + + + CULTURE, WOUND [...] | + + + + + | [facility] - | [address] | [place] [address] | | | [place] | | | | + + + [...] number | | | | | | [id number]. Throat, | | | | | | [...] | + + + + + | [facility] | [address] | [place] [address] | | | PATHOLOGY | [address] | | | + + + [...] + | Dysphonia | + + | Pharyngeal dysphagia Dysphagia, [...] +---+---+ +---+---+ | | | +---+---+ + +---------+ +-----+---+---+ | ampicillin-sulbactam (UNASYN) 3 | New Bag | 06/21/20 | 3 g | | | | g in NaCl 0.9 % (NS) IV 3 g, | | 18 3:41 | | | | | intravenous, EVERY 6 HOURS, First | | AM PDT | | | | | dose on Tue06/20/18 at 1915, | | | | | | | Until Discontinued | | | | | | + +---------+ +-----+---+---+ +---------+ +-----+---+---+ | New Bag | 06/20/20 | 3 g | | | | | 18 8:48 | | | | | | PM PDT | | | | +---------+ +-----+---+---+ +---+---+ | | | +---+---+ [...] | +---+---+ + +-------+ + +---+---+ | HYDROcodone-acetaminophen | Given | 06/20/20 | 1 tablet | | | | (NORCO) 5-325 mg tablet 1-2 | | 18 6:12 | | | | | tablet 1-2 tablet, oral, EVERY 4 | | PM PDT | | | | | HOURS NEEDED, Starting Tue | | | | | | | 06/20/18 at 1735, Until 06/20/18 | | | | | | | at 1741, moderate pain | | | | | | + +-------+ + +---+---+ + +---+ | | | + +---+ | HYDROcodone-acetaminophen | | | (NORCO) 5-325 mg tablet 1 dose, | | | Starting Tue06/20/18 at 1811, | | | Until Tue06/20/18 at 1812 | | + +---+ | | | + +---+ + +-------+ +--------+---+---+ | HYDROmorphone (DILAUDID) | Given | 06/20/20 | 0.2 mg | | | | injection 0.2-0.5 mg 0.2-0.5 mg, | | 18 6:13 | | | | | intravenous, POSTPROCEDURE PRN, | | PM PDT | | | | | Starting Tue06/20/18 at 1613, | | | | | | | Until Tue06/20/18 at 1909, | | | | | | | [...] | | | | | NEEDED, Starting Tu06/20/18 at | | | | | | [...]
--- OUTSIDE RECORDS SUMMARY | ~2019-10-09 | XMS | Encounter Summary ---
Demographics + + + | Address | [address] | | | [place] [address] | + + + | Home Phone [...] Team Providers + +------+ + | Care Mechanical Project Manager Name | Role | Phone | [...] | | | [address] | [address] | | | | | [place] [address] | | | | | | [phone] | | | +--------+ + + + [...] [place] | | | | | | [id number] | | | | | | | | +--------+ + + + + documented as of this encounter Visit Diagnoses Not on filedocumented in this encounter"
--- OUTSIDE RECORDS SUMMARY | ~2019-10-09 | XMS | Encounter Summary ---
Demographics + + + | Address | [address] | | | [place] [address] | + + + | Home Phone | | + + + | Preferred Language | Unknown | + + + | Marital Status | | + + + | Religion Affiliation | NRP | + + + [...] | | | | [place] [address] | | + + + + + Care Team Providers + +------+ + | Care Cad Detailer Name | Role | Phone | + [...] | Malignant | Pasquale S, | Ch[address] | | | | | neoplasm of | [address] | | | | | glottis | [place] | Mailcode: | | | | | (HCC) | [facility] | [facility] | | | | | Pharyngeal | [place], [place] | for Health | | | | | dysphagia | [address] | and Healing, | | | | | Dysphonia | Phone: | Building [address], | | | | | Tobacco | [phone] | 3rd Floor | | | | | abuse | Fax: | [place], [place] | | | | | Procedures | [phone] | [address] | | | | | CT CHEST WO | | Phone: | | | | | CONTRAST MS | | [phone] | | | | | CT | | Fax: | | | | | SCAN,THORAX, | | [phone] | | | | | W/O CONTRAST [...] | | | | | | | [place], [place] | | | | | | | [address] | | | | | | | Phone: | | | | | | | [phone] | | | | | | | Fax: | | | | | | | [phone] | + +--------+ + + + + [...] Pharyngeal | | | | [address] [place], | [facility] [place] | dysphagia; | | | | [place] [address] | [address] | Dysphonia; Tobacco | | | | [phone] | [phone] | abuse; History of | | | [...] 11:15 AM PDT PATIENT NAME: Ronni Chowdhury [facility] MR#: [id number] : 1970 REFERRING PROVIDER: Daniel Cannon MD [address] [address] PRIMARY CARE PHYSICIAN: Daniel Cannon MD CLINIC: [facility] REASON FOR FOLLOW-UP: Chief Complaint Patient presents with Follow-up visit TUMOR TYPE/LOCATION: squamous cell carcinoma, right glottis TNM/STAGE: [id number]/Stage III IDENTIFICATION DATE: 1) 11/29/17; 3) Reidentified [...] and symmetric throughout. The pupils are equal. Ccna strength does jessica ear full bilaterally. Facial [...] H at that time Pasquale Moscoso M.D. Safety Associate Laryngology and Head & Neck Surgery d ocumented in this encounter Plan of Treatment +--------+---------+ + + + | Date | Type | Specialty | Care Team | Description | +--------+---------+ + + + | 03/19/ | Office | Otolaryngology | Pasquale Moscoso | | | 2019 | Visit | | MD Sidney [address] [facility] | | | | | | [address] | | | | | | [place], [place] | | | | | | [address] | | | | | | [phone] | | | | | | | | +--------+---------+ + + + documented as of this encounter Procedures + +--------+ + + + | Procedure Name | Priori | Date/Time | Associated Diagnosis | Comments | | | ty | | | | + +--------+ + + + | [place] | Routin | 06/28/2019 | T3N0 SCCa, [...]
--- OUTSIDE RECORDS SUMMARY | ~2019-10-09 | XMS | Encounter Summary ---
Demographics + + + | Address | [address] | | | [place] [address] | + + + | Home Phone | | + + + | Preferred Language | Unknown | + + + | Marital Status | | + + + | Advent Affiliation | Unknown | + + + | Race | Unknown | + + + | Ethnic Group | Unknown | + + + Author + + + | Author | [facility] | | | and [place] | + + + | Organization | [facility] | | | [...] Team Providers + +------+ + | Care Copy Center Associate Name | Role | Phone | [...] | | | [address] | [address] | | | | | [place] [address] | | | | | | [phone] | | | +--------+ + + + [...] [place] | | | | | | [id number] | | | | | | | | +--------+ + + + + documented as of this encounter Visit Diagnoses Not on filedocumented in this encounter"
--- OUTSIDE RECORDS SUMMARY | ~2019-10-09 | XMS | Encounter Summary ---
Demographics + + + | Address | [address] | | | [place] [address] | + + + | Home Phone | | + + + | Preferred Language | Unknown | + + + | Marital Status | | + + + | Zoroastrian Affiliation | NRP | + + + [...] | | | | [place] [address] | | + + + + + Care Team Providers + +------+ + | Care Mechanical Artist Name | Role | Phone | + +------+ + | Daniel Cannon MD | PCP | | + +------+ + Encounter Details +--------+ + + + + | Date | Type | Department | Care Team | Description | +--------+ + + + + | 01/16/ | Procedure | 6A Intra Op [id number] | | | | 2018 | Pass | [address] [facility] | | | | | | [place] [facility] | | | | | | Hospital Admitting | | | | | | Desk Located on the | | | | | | 9th floor | | | | | | [place], [place] | | | | | | [address] | | | +--------+ + + + [...] Rd | | | | | | [place], [place] | | | | | | [address] | | | | | | [phone] | | | | | | | | +--------+---------+ + + + documented as of this encounter Visit Diagnoses Not on filedocumented in this encounter"
--- OUTSIDE RECORDS SUMMARY | ~2019-10-09 | XMS | Encounter Summary ---
Demographics + + + | Address | [address] | | | [place] [address] | + + + | Home Phone [...] | | | | [place] [address] | | + + + + + Care Team Providers + +------+ + | Care Voltage Tester Name | Role | Phone | [...] | | | | | | | [place], [place] | | | | | | | [address] | | | | | | | Phone: | | | | | | | [phone] | | | | | | | Fax: | | | | | | | [phone] | + +--------+ + + + + [...] Pharyngeal | | | | [address] [place], | [place], [place] | dysphagia; | | | | [place] [address] | [address] | Dysphonia; Tobacco | | | | [phone] | [phone] | abuse | | | | | [...] AM PDTLaryngoscopy procedure was performed using the [employer]: Description #1: [id number] Serial ID #1: [id number] Pasquale Schwab MD - 03/14/2019 9:00 AM PDT PATIENT NAME: Ronni Chowdhury MR#: [id number] : 1970 REFERRING PROVIDER: [facility] [address] [place] [address] PRIMARY CARE PHYSICIAN: Daniel Cannon MD CLINIC: [facility] REASON FOR FOLLOW-UP: Chief Complaint Patient presents with Follow-up visit TUMOR TYPE/LOCATION: squamous cell carcinoma, right glottis TNM/STAGE: [id number]/Stage III IDENTIFICATION DATE: 1) 11/29/17; 3) Reidentified [...] and symmetric throughout. The pupils are equal. Sheet Layer strength does jessica ear full bilaterally. Facial [...] sooner if symptoms worsen. Pasquale Moscoso M.D. Tear Down Man Laryngology and Head & Neck Surgery d [...] Rd | | | | | | [place], [place] | | | | | | [address] | | | | | | [phone] | | | | | | | | +--------+---------+ + + + documented as of this encounter Procedures + +--------+ + + + | Procedure Name | Priori | Date/Time | Associated Diagnosis | Comments | | | ty | | | | + +--------+ + + + | [place] | Routin | 03/14/2019 | T3N0 SCCa, [...]
--- OUTSIDE RECORDS SUMMARY | ~2019-10-09 | XMS | Encounter Summary ---
Demographics + + + | Address | [address] | | | [place] [address] | + + + | Home Phone [...] Team Providers + +------+ + | Care Rotary Drum Tanner Name | Role | Phone | + [...] + + | 09/14/ | Hospital | [facility] | Vasile Naida | | | 2018 | Encounter | MED CTR NUTRITION | MD Brad [address] | | | | | SERVICES [address] [place], [place] | | | | | [place], | [address] | | | | | [place] [address] | | | | | | [phone] | [place], | | | | [...] | | | | | [facility] [place] | | | | | | [address] | | | | | | | | +--------+ + + + + documented as of this encounter Visit Diagnoses Not on filedocumented in this encounter
--- OUTSIDE RECORDS SUMMARY | ~2019-10-09 | XMS | Encounter Summary ---
Demographics + + + | Address | [address] | | | [place] [address] | + + + | Home Phone | | + + + | Preferred Language | Unknown | + + + | Marital Status | | + + + | Catholic Affiliation | Unknown | + + + [...] Team Providers + +------+ + | Care Etl Architect Name | Role | Phone | + [...] + + | 08/31/ | Hospital | [facility] | Naida Burnette | Malignant neoplasm | | 2018 | Encounter | MED CTR RADIATION | MD Brad [address] | of glottis (HCC) | | | | ONCOLOGY CLINIC [address] | [place], [place] | (Primary Dx) | | | | [address] | [address] | | | | | [place] [address] | | | | | | [phone] | | | +--------+ + + + [...] 10 MG tablet Take by mouth Daily. lgbwrtyneqMETCF-qyvspuqdo-pptecres & magnesium hydroxide-simethicone (MAGIC MOUTHWASH) Swish and [...] NEREIDA | | | | | | [place], [place] | | | | | | [id number] | | | | | | | | +--------+ + + + + documented as of this encounter Visit Diagnoses + + | Diagnosis | + + | 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
--- OUTSIDE RECORDS SUMMARY | ~2019-10-09 | XMS | Encounter Summary ---
Demographics + + + | Address | [address] | | | [place] [address] | + + + | Home Phone [...] Team Providers + +------+ + | Care Punch Operator Name | Role | Phone | [...] + + | 08/10/ | Hospital | [facility] | Naida Burnette | Malignant neoplasm | | 2018 | Encounter | MED CTR RADIATION | MD Brad [address] | of glottis (HCC) | | | | ONCOLOGY CLINIC [address] | [place], [place] | (Primary Dx) | | | | [address] | [address] | | | | | [place] [address] | | | | | | [phone] | | | +--------+ + + + [...] dry mouth and he has been using hoiw-ogd-vikyhrz biotein produc ts with good effect. 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
--- OUTSIDE RECORDS SUMMARY | ~2019-10-09 | XMS | Encounter Summary ---
Demographics + + + | Address | [address] | | | [place] [address] | + + + | Home Phone [...] Team Providers + +------+ + | Care Re Examiner Name | Role | Phone | + [...] | | | | VISIT | [address] | [place], | | | | | EXTENDED | [place], | [place] [address] | | | | | | [place] | Phone: | | | | | | [address] | [phone] | | | | | | Phone: | Fax: | | | | | | [phone] | [phone] | | | | | | Fax: | | | | | | | [phone] | | + +--------+ + + + + Encounter Details +--------+ + + + + | Date | Type | Department | Care Team | Description | +--------+ + + + + | 12/27/ | Hospital | [facility] | Naida Burnette | Malignant neoplasm | | 2019 | Encounter | MED CTR RADIATION | MD Brad [address] | of glottis (HCC) | | | | ONCOLOGY CLINIC [address] | [place], [place] | (Primary Dx) | | | | [address] | [address] | | | | | [place] [address] | | | | | | [phone] | | | +--------+ + + + [...] impaired mobility 01/16/2018 Surgery Surgeon: Dr. Moscoso, [facility] Surgery indicated: Supracricoid partial laryngectomy sparing left [...] neck mass CT neck on 05/29/18 at [facility] abscess at anterior neck. I&D and antibiotics [...] by Dr. Aleman, infectious disease specialist in [facility]. He has continued on amoxicillin due to [...] capsule 500 mg 3 times daily. 0 gmunhwcynaMBOKB-aqppsgscs-hzdahmml & magnesium hydroxide-simethicone (MAGIC MOUTHWASH) Swish and [...] were discussed wi th Dr. Moscoso at [facility] who recommends exam in his office. This [...] M.D. 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
--- OUTSIDE RECORDS SUMMARY | ~2019-10-09 | XMS | Clinical Summary ---
Demographics + + + | Address | [address] | | | [place] [address] | + + + | Home Phone [...] | | | | | [place] [address] | | + + + + + Care Team Providers + +------+ + | Care Infantry Weapons Crewmember Name | Role | Phone | + +------+ + | Daniel Cannon MD | PCP | | + +------+ + Source Comments ZAID is fully live on both [facility] Ambulatory and [facility] InPatient.[facility] Allergies No Known Allergies Medications + + [...] | Visit | | MD Sidney [address] [facility] | | | | | | [address] | | | | | | [place], [place] | | | | | | [address] | | | | | | [phone] | | | | | | | [...] | + +--------+ + + + | [place] | Routin | 09/21/2019 | T3N0 SCCa, [...] | | al/Fam | | 1971 | [phone] | [place] [address] | | | chary | | | 0 (Home) | | | | | | | [phone] | | | | | | | [...]
--- OUTSIDE RECORDS SUMMARY | ~2019-10-09 | XMS | Encounter Summary ---
Demographics + + + | Address | [address] | | | [place] [address] | + + + | Home Phone | | + + + | Preferred Language | Unknown | + + + | Marital Status | | + + + | Restorationism Affiliation | Unknown | + + + [...] Team Providers + +------+ + | Care Geospatial Program Management Officer Name | Role | Phone | [...] Dominguez MD | | | | | [place], | | | | | | [place] [address] | | | | | | [phone] | | | +--------+--------+ + + + [...] [place] | | | | | | [address] | | | | | | | | +--------+ + + + + documented as of this encounter Visit Diagnoses Not on filedocumented in this encounter"
--- OUTSIDE RECORDS SUMMARY | ~2019-10-09 | XMS | Encounter Summary ---
Demographics + + + | Address | [address] | | | [place] [address] | + + + | Home Phone | | + + + | Preferred Language | Unknown | + + + | Marital Status | | + + + | Pentecostalism Affiliation | NRP | + + + [...] | | | | [place] [address] | | + + + + + Care Team Providers + +------+ + | Care Electromechanisms Design Drafter Name | Role | Phone | + [...] | Laryngology Services | MD Sidney [address] [facility] | | | | | at [facility] [address] | | | | | [place], | [place], [place] | | | | | [place] [address] | [address] | | | | | [phone] | [phone] | | | | | | | [...] 2019 | Visit | | MD Sidney [address] | | | | | | [address] | | | | | | [place], [place] | | | | | | [address] | | | | | | [phone] | | | | | | | | +--------+---------+ + + + documented as of this encounter Visit Diagnoses Not on filedocumented in this encounter
--- OUTSIDE RECORDS SUMMARY | ~2019-10-09 | XMS | Encounter Summary ---
Demographics + + + | Address | [address] | | | [place] [address] | + + + | Home Phone | | + + + | Preferred Language | Unknown | + + + | Marital Status | | + + + | Sikhism Affiliation | Unknown | + + + | Race | Unknown | + + + | Ethnic Group | Unknown | + + + Author + + + | Author | [facility] | | | and [place] | + + + | Organization | [facility] | | | [...] Team Providers + +------+ + | Care Chemical Applicator Name | Role | Phone | + [...] | Malignant | Naida M, | [address] | | | | | neoplasm of | MD [address] | [place], | | | | | glottis | [address] | [place] [address] | | | | | (HCC) | [place], | Phone: | | | | | Procedures | [place] [address] | [phone] | | | | | CT Soft | Phone: | Fax: | | | | | Tissue Neck | [phone] | [phone] | | | | | w Contrast | Fax: | | | | | | | [phone] | | +--------+--------+ + + + + [...] | Malignant | Naida M, | [address] | | | | | neoplasm of | MD [address] | [place], | | | | | glottis | [address] | [place] [address] | | | | | (HCC) | [place], | Phone: | | | | | Procedures | [place] [address] | [phone] | | | | | CT Soft | Phone: | Fax: | | | | | Tissue Neck | [phone] | [phone] | | | | | w Contrast | Fax: | | | | | | | [phone] | | +--------+--------+ + + + + Encounter Details +--------+ + + + + | Date | Type | Department | Care Team | Description | +--------+ + + + + | 12/27/ | Hospital | [facility] | Naida Burnette | Malignant neoplasm | | 2019 | Encounter | MED CTR [address] | MD Brad [address] | of glottis (HCC) | | | | [address], | [place], [place] | | | | | [place] [address] | [address] | | | | | [phone] | | | +--------+ + + + [...] [place] | | | | | | [address] | | | | | | | [...]
--- OUTSIDE RECORDS SUMMARY | ~2019-10-09 | XMS | Encounter Summary ---
Demographics + + + | Address | [address] | | | [place] [address] | + + + | Home Phone | | + + + | Preferred Language | Unknown | + + + | Marital Status | | + + + | Samaritan Affiliation | NRP | + + + | Race | White | + + + | Ethnic Group | Not or | + + + Author + + + | Author | [facility] | + + + | Organization | [facility] | + + + | Address | Unknown | + + + | Phone | Unavailable | + + + Support + + + + + | Name | Relationship | Address | Phone | + + + + + | Cecile Chowdhury | ECON | [address] | | | | | [place] [address] | | + + + + + Care Team Providers + +------+ + | Care Leadite Man Name | Role | Phone | [...] | Laryngology Services | MD Sidney [address] [facility] | | | | | at [facility] [address] | | | | | [place], | [place], [place] | | | | | [place] [address] | [address] | | | | | [phone] | | | | | | | [...] | Visit | | MD Sidney [address] [facility] | | | | | | [facility] | | | | | | [place], [place] | | | | | | [address] | | | | | | [phone] | | | | | | | | +--------+---------+ + + + documented as of this encounter Visit Diagnoses Not on filedocumented in this encounter"
--- OUTSIDE RECORDS SUMMARY | ~2019-10-09 | XMS | Encounter Summary ---
Demographics + + + | Address | [address] | | | [place] [address] | + + + | Home Phone [...] Team Providers + +------+ + | Care Wrapping Clerk Name | Role | Phone | [...] | | ONCOLOGY CLINIC [address] | [place], [place] | | | | | [address] | [address] | | | | | [place] [address] | | | | | | [phone] | | | +--------+ + + + [...]
--- OUTSIDE RECORDS SUMMARY | ~2019-10-09 | XMS | Encounter Summary ---
Demographics + + + | Address | [address] | | | [place] [address] | + + + | Home Phone [...] | | | | [place] [address] | | + + + + + Care Team Providers + +------+ + | Care Pediatric Speech Language Pathologist Name | Role | Phone | + [...] | | Laryngology Services | MD Sidney [address] | | | | | at [facility] [address] | | | | | [place], | [place], [place] | | | | | [place] [address] | [address] | | | | | [phone] | [phone] | | | | | | | [...] | Visit | | MD Sidney [address] [facility] | | | | | | [address] | | | | | | [place], [place] | | | | | | [address] | | | | | | [phone] | | | | | | | | +--------+---------+ + + + documented as of this encounter Visit Diagnoses + + | Diagnosis | + + | T3N0 SCCa, 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
--- OUTSIDE RECORDS SUMMARY | ~2019-10-09 | XMS | Encounter Summary ---
Demographics + + + | Address | [address] | | | [place] [address] | + + + | Home Phone | | + + + | Preferred Language | Unknown | + + + | Marital Status | | + + + | Amish Affiliation | Unknown | + + + | Race | Unknown | + + + | Ethnic Group | Unknown | + + + Author + + + | Author | [facility] | | | and [place] | + + + | Organization | [facility] | | [...] Team Providers + +------+ + | Care Production Line Name | Role | Phone | + +------+ + | Daniel Cannon MD | PCP | | + +------+ + Encounter Details +--------+ + + + + | Date | Type | Department | Care Team | Description | +--------+ + + + + | 08/22/ | Hospital | [facility] | Naida Burnette | | | 2018 | Encounter | MED CTR RADIATION | MD Brad [address] | | | | | ONCOLOGY [address] | [place] | | | | | [place], | [address] | | | | | [place] [address] | | | | | | [phone] | | | +--------+ + + + [...] [place] | | | | | | [address] | | | | | | | | +--------+ + + + + documented as of this encounter Visit Diagnoses Not on filedocumented in this encounter"
--- OUTSIDE RECORDS SUMMARY | ~2019-10-09 | XMS | Encounter Summary ---
Demographics + + + | Address | [address] | | | [place] [address] | + + + | Home Phone [...] | | | | [place] [address] | | + + + + + Care Team Providers + +------+ + | Care Fudge Candy Maker Name | Role | Phone | + +------+ + | Daniel Cannon MD | PCP | | + +------+ + Encounter Details +--------+ + + + + | Date | Type | Department | Care Team | Description | +--------+ + + + + | 12/20/ | Repair Manager | Hematology/Medical | Javier Montaño, | Squamous cell | | 2018 | | Oncology at [place] | [address] | carcinoma of right | | | | for Health & Healing | [place], [place] | vocal cord (HCC) | | | | [address] | [address] | (Primary Dx) | | | | Mailcode: [facility] | [phone] | | | | | for Health and | | | | | | [facility] [address] | | | | | | [place], [place] | | | | | | [address] | | | | | | [phone] | | | +--------+ + + + [...] | Visit | | MD Sidney [address] [facility] | | | | | | [address] | | | | | | [place], [place] | | | | | | [address] | | | | | | [phone] | | | | | | | | +--------+---------+ + + + documented as of this encounter Procedures + +--------+ + + + | Procedure Name | Priori | Date/Time | Associated Diagnosis | Comments | | | ty | | | | + +--------+ + + + | PATHOLOGY CONSULT - | Routin | 11/29/2017 | Squamous cell | Results for this | | REVIEW OUTSIDE | e | | carcinoma of right | procedure are in the | | SLIDES | | | vocal cord (HCC) | results section. | + +--------+ + + + documented in this encounter Results PATHOLOGY CONSULT - REVIEW OUTSIDE SLIDES (11/29/2017) + + + + + + | Component | Value | Ref Range | Performed | Pathologist | | | | | At | Signature | + + + + + + | Clinical | Hoarseness, right TUC | | [facility] | | | History | lesion | | DEPARTMENT | | | | | | OF | | | | | | PATHOLOGY | | + + + + + + | Final | A. Vocal cord lesion, | | [facility] | Electronically | | Pathologic | right, biopsy | | DEPARTMENT | signed by | | Diagnosis | ([id number], 11/29/17): | | OF | Costa W | | | - Invasive squamous | | PATHOLOGY | MD Katherin,PhD | | | cell carcinoma, | | | on 12/29/2017 at | | | moderately | | | 9:56 AM | | | differentiated and | | | | | | keratinizingComment: We | | | | | | appreciate the | | | | | | opportunity to review | | | | | | this case and agree with | | | | | | the previously rendered | | | | | | diagnosis. p16 | | | | | | immunohistochemistry is | | | | | | negative in the | | | | | | carcinoma. Case seen | | | | | | by:Mian Frost MD | | | | | | | | | | | | Surgical Pathology | | | | | | FellowPhilipguille Pandey, | | | | | | , PhD | | | | | | [...] + + + + + + | Materials | Specimen AReferring | | [facility] | | | Received | Institution: [facility] | | DEPARTMENT | | | | Diagnostics [place], | | | | | | [place] [id number] | | PATHOLOGY | | | | Accession Number: | | | | | | [id number] | | | | | | Collection Date: | | | | | | 11/29/17ublabeled H&E | | | | | | IHC's A 1 1 | | | | + + + + + + | Ancillary | All stains received for | | [facility] | | | Information | review. 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
--- OUTSIDE RECORDS SUMMARY | ~2019-10-09 | XMS | Encounter Summary ---
Demographics + + + | Address | [address] | | | [place] [address] | + + + | Home Phone [...] | | | | [place] [address] | | + + + + + Care Team Providers + +------+ + | Care Marketing Operations Associate Name | Role | Phone | [...] | | | | | Procedures | [place], [place] | [address] [facility] | | | | | CT NECK SOFT | [address] | [facility] | | | | | TISSUE W | Phone: | [place], [place] | | | | | [place] | [phone] | [address] | | | | | CT NECK | Fax: | Phone: | | | | | TISSUE | [phone] | [phone] | | | | | CONTRAST | | Fax: | | | | | | | [phone] | +--------+--------+ + + + + Reason [...] | | | CT NECK SOFT | [address] | Hospital | | | | | TISSUE W | Phone: | [place], [place] | | | | | [place] | [phone] | [address] | | | | | CT NECK | Fax: | Phone: | | | | | TISSUE | [phone] | [phone] | | | | | CONTRAST | | Fax: | | | | | | | [phone] | +--------+--------+ + + + + Encounter Details +--------+ + + + + | Date | Type | Department | Care Team | Description | +--------+ + + + + | 05/29/ | Hospital | Diagnostic Imaging | Steve, | | | 2017 | Encounter | Services at [facility] | Yolande Casey PA-C | | | | | [address] | [address] | | | | | [place] Mailcode: | [place], [place] | | | | | [address] [facility] | [address] | | | | | [place], [place] | [phone] | | | | | [address] | | | | | | [phone] | | | +--------+ + + + [...] 2020 | Visit | | MD Sidney [address] [facility] | | | | | | [address] | | | | | | [place], [place] | | | | | | [address] | | | | | | [phone] | | | | | | | [...] + + + | ZAID MURILLO | [address] | [place], [place] | | | JOSTIN CANO OF [facility] | [address] | [address] | | | TESTS | | | [...]
--- OUTSIDE RECORDS SUMMARY | ~2019-10-09 | XMS | Encounter Summary ---
Demographics + + + | Address | [address] | | | [place] [address] | + + + | Home Phone | | + + + | Preferred Language | Unknown | + + + | Marital Status | | + + + | Adventism Affiliation | Unknown | + + + | Race | Unknown | + + + | Ethnic Group | Unknown | + + + Author + + + | Author | [facility] | | | and [place] | + + + | Organization | [facility] | | [...] Providers + +------+ + | Care Legal Librarian Name | Role | Phone | + [...] | Malignant | Naida M, | [address] | | | | | neoplasm of | MD [address] | [place], | | | | | glottis | [address] | [place] [address] | | | | | (HCC) | [place], | Phone: | | | | | Procedures | [place] [id number] | [phone] | | | | | CT Soft | Phone: | Fax: | | | | | Tissue Neck | [phone] | [phone] | | | | | w Contrast | Fax: | | | | | | | [phone] | | +--------+--------+ + + + + Encounter Details +--------+ + + + + | Date | Type | Department | Care Team | Description | +--------+ + + + + | 10/24/ | Orders Only | [facility] | Naida Burnette | Malignant neoplasm | | 2019 | | MED CTR RADIATION | MD Brad [address] | of glottis (HCC) | | | | ONCOLOGY CLINIC [address] | [place], [place] | (Primary Dx) | | | | [address] [place] | [address] | | | | | [place] [address] | | | | | | [phone] | | | +--------+ + + + [...] 01/01/ | Appointment | Radiation Oncology | VasileNaida | | | 2019 | | | MD Edi Salinas [address] | | | | | | [place], [place] | | | | | | [address] | | | | | | | | +--------+ + + + + documented as of this encounter Results CT Soft Tissue Neck [...]
--- OUTSIDE RECORDS SUMMARY | ~2019-10-09 | XMS | Encounter Summary ---
Demographics + + + | Address | [address] | | | [place] [address] | + + + | Home Phone [...] | | | | [place] [address] | | + + + + + Care Team Providers + +------+ + | Care Director Corporate Compliance Name | Role | Phone | + [...] | | Laryngology Services | MD Sidney [address] | | | | | at [facility] [address] | [address] | | | | | [place], | [place], [place] | | | | | [place] [address] | [address] | | | | | [phone] | [phone] | | | | | | | [...] 2019 | Visit | | MD Sidney [address] | | | | | | [address] | | | | | | [facility] [place] | | | | | | [address] | | | | | | [phone] | | | | | | | | +--------+---------+ + + + documented as of this encounter Visit Diagnoses Not on filedocumented in this encounter"
--- OUTSIDE RECORDS SUMMARY | ~2019-10-09 | XMS | Encounter Summary ---
Demographics + + + | Address | [address] | | | [place] [address] | + + + | Home Phone [...] Team Providers + +------+ + | Care Dermatology Nurse Name | Role | Phone | + [...] | Malignant | Naida M, | [address] | | | | | neoplasm of | MD [address] | [place], | | | | | glottis | [address] | [place] [address] | | | | | (HCC) | [place], | Phone: | | | | | Procedures | [place] [address] | [phone] | | | | | CT Soft | Phone: | Fax: | | | | | Tissue Neck | [phone] | [phone] | | | | | w Contrast | Fax: | | | | | | | [phone] | | +--------+--------+ + + + + Encounter Details +--------+ + + + + | Date | Type | Department | Care Team | Description | +--------+ + + + + | 10/24/ | Orders Only | [facility] | Naida Burnette | Malignant neoplasm | | 2019 | | MED CTR RADIATION | MD Brad [address] | of glottis (HCC) | | | | ONCOLOGY CLINIC [address] | [place], [place] | (Primary Dx) | | | | [address] [place] | [address] | | | | | [place] [address] | | | | | | [phone] | | | +--------+ + + + [...] NERE[place] | | | | | | [place], [place] | | | | | | [address] | | | | | | | [...]
--- OUTSIDE RECORDS SUMMARY | ~2019-10-09 | XMS | Encounter Summary ---
Demographics + + + | Address | [address] | | | [place] [address] | + + + | Home Phone | | + + + | Preferred Language | Unknown | + + + | Marital Status | | + + + | Presybeterian Affiliation | Unknown | + + + [...] Team Providers + +------+ + | Care Bead Filler Name | Role | Phone | [...] | | ONCOLOGY CLINIC [address] | [place], [place] | | | | | [address] | [address] | | | | | [place] [address] | | | | | | [phone] | | | +--------+ + + + [...]
--- OUTSIDE RECORDS SUMMARY | ~2019-10-09 | XMS | Encounter Summary ---
Demographics + + + | Address | [address] | | | [place] [address] | + + + | Home Phone [...] Team Providers + +------+ + | Care Ultrasound Technician Name | Role | Phone | [...] Brianna MAY | | | | | [phone] | [place] [address] | | +--------+ + + + + [...] [place] | | | | | | [address] | | | | | | | [...]
--- OUTSIDE RECORDS SUMMARY | ~2019-10-09 | XMS | Encounter Summary ---
Demographics + + + | Address | [address] | | | [place] [address] | + + + | Home Phone [...] Team Providers + +------+ + | Care Educational Consultant Name | Role | Phone | + +------+ + | Daniel Cannon MD | PCP | | + +------+ + Encounter Details +--------+ + + + + | Date | Type | Department | Care Team | Description | +--------+ + + + + | 08/09/ | Documentati | [facility] | Lori Tate | | | 2018 | on | MED CNT ONCOLOGY | A, OT | | | | | THERAPY [address] | | | | | | [place], | | | | | | [place] [address] | | | | | | [phone] | | | +--------+ + + + [...] Tate, OT - 08/09/2018 10:59 AM [facility] OP [address] [facility] [address] Oncology Rehab Screening Date: 08/09/2018 Patient Information [...] removal of R neck abcess 06/20/18 at [facility]. He had s peech therapy intervention initially [...] including if they would like referral to CERTIFIED PEDORTHOTIST here in [place]. Patient to contact therapist or doctor if [...] [address] | | | | | | [place], [place] | | | | | | [address] | | | | | | | | +--------+ + + + + documented as of this encounter Visit Diagnoses Not on filedocumented in this encounter"
--- OUTSIDE RECORDS SUMMARY | ~2019-10-09 | XMS | Encounter Summary ---
Demographics + + + | Address | [address] | | | [place] [address] | + + + | Home Phone [...] Team Providers + +------+ + | Care Stevedoring Superintendent Name | Role | Phone | + [...] MD | persistent, | | | | [place], | | uncomplicated | | | | [place] [address] | | (Primary Dx); | | | | [phone] | | Heartburn; Allergic | | | [...] [facility] At [facility], we had decreased [...] made to ensure accuracy; however, inadvertent computerized technology teacher errors may be pre sent. Electronically signed [...] [place] | | | | | | [address] | | | | | | | [...]
--- OUTSIDE RECORDS SUMMARY | ~2019-10-09 | XMS | Encounter Summary ---
Demographics + + + | Address | [address] | | | [place] [address] | + + + | Home Phone [...] [address] | | | | | [place] [address] | | + + + + + Care Team Providers + +------+ + | Care Tinner Automatic Name | Role | Phone | + +------+ + | Daniel Cannon MD | PCP | | + +------+ + Encounter Details +--------+ + + + + | Date | Type | Department | Care Team | Description | +--------+ + + + + | 12/20/ | Compliance Representative Dealer | Hematology/Medical | Javier Montaño, | Squamous cell | | 2018 | | [facility]cology at [facility] | [address] | carcinoma of right | | | | for Health & Healing | [place], [place] | vocal cord (HCC) | | | | [address] | [address] | (Primary Dx) | | | | Mailcode: [facility] | [phone] | | | | | for Health and | | | | | | [facility] [address] | | | | | | [place], [place] | | | | | | [address] | | | | | | [phone] | | | +--------+ + + + [...] | Visit | | MD Sidney [address] [facility] | | | | | | [address] | | | | | | [place], [place] | | | | | | [address] | | | | | | [phone] | | | | | | | [...] | signed by | | Diagnosis | ([id number], 11/29/17): | | OF | Costa W [...] | DEPARTMENT | | | | Diagnostics [place], | | | | | | [place] [id number] | | PATHOLOGY | | | | Accession Number: | | | | | | [id number] | | | | | | Collection [...] | + + + + + | [facility] | [address] | [place] [address] | | | PATHOLOGY | [address] | | | + + + + + documented in this encounter Visit Diagnoses + + | Diagnosis | + + | 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
--- OUTSIDE RECORDS SUMMARY | ~2019-10-09 | XMS | Clinical Summary ---
Demographics + + + | Address | [address] | | | [place] [address] | + + + | Home Phone | | + + + | Preferred Language | Unknown | + + + | Marital Status | | + + + | Jewish Affiliation | Unknown | + + + | Race | Unknown | + + + | Ethnic Group | Unknown | + + + Author + + + | Author | [facility] (Historical as of | | | 06-02-19) | + + + | Organization | [facility] (Historical as of | | | 06-02-19) | + + + | Address | Unknown | + + + | Phone | Unavailable | + + + Support + + +---------+ + | Name | Relationship | Address | Phone | + + +---------+ + | Cecile Mahmood | ECON | Unknown | | + + +---------+ + Care Team Providers + +------+ + | Care Hand Bindery Assembly Worker Name | Role | Phone | + +------+ + | Daniel Cannon MD | PP | | + +------+ + Allergies No Known Allergies Current Medications + + +-------+---------+------+------+-------+ | Prescription | Sig. | Disp. | Refills | Star | End | Statu | | | | | | t | Date | s | | | | | | Date | | | + + +-------+---------+------+------+-------+ | | Inhale 1 puff into | | | 07/ | | Activ | | fluticasone-salmeter | the lungs 2 (two) | | | 520 | | e | | ol (ADVAIR DISKUS) | times daily. | | | 15 | | | | 500-50 MCG/DOSE | | | | | | | | diskus inhaler | | | | | | | + + +-------+---------+------+------+-------+ | amLODIPine | Take by mouth | | | 04/0 | | Activ | | (NORVASC) 10 MG | daily. | | | /20 | | e | | tablet | | | | 18 | | | + + +-------+---------+------+------+-------+ | | Take 5 mLs by mouth | | | 11/0 | | Activ | | LTK-Mazv-ShIoyh-MgHy | every 4 (four) hours | | | /20 | | e | | dr-Simeth | as needed for Pain. | | | 18 | | | | (FIRST-MOUTHWASH | | | | | | | | BLM) SUSP | | | | | | | + + +-------+---------+------+------+-------+ | gabapentin | Take by mouth 3 | | | 09/0 | | Activ | | (NEURONTIN) 300 MG | (three) times daily. | | | 20 | | e | | capsule | | | | 18 | | | + + +-------+---------+------+------+-------+ | oxyCODONE | Take 5 mg by mouth | | | 09/0 | | Activ | | (ROXICODONE) 5 MG | every 4 (four) hours | | | 5/20 | | e | | immediate release | as needed. | | | 18 | | | | tablet | | | | | | | + + +-------+---------+------+------+-------+ | albuterol (PROAIR | Inhale 2 puffs into | | | 07/1 | | Activ | | HFA) 108 (90 Base) | the lungs every 4 | | | 5/20 | | e | | MCG/ACT inhaler | (four) hours as | | | 15 | | | | | needed for Wheezing. | | | | | | + + +-------+---------+------+------+-------+ | sildenafil | Take 100 mg by mouth | | | | | Activ | | (VIAGRA) 100 MG | as needed. | | | | | e | | tablet | | | | | | | + + +-------+---------+------+------+-------+ | acetaminophen | Take 1 tablet by | | | / | | Activ | | (TYLENOL) 500 MG | mouth every 6 (six) | | | 5/20 | | e | | tablet | hours as needed for | | | 18 | | | | | Moderate Pain (4-6). 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 | + + + Immunizations + + + + | Name | Dates Previously Given | Next Due | + + + + | INFLUENZA PF, | 11/07/2014 | | | QUADRIVALENT | | | | (PED/ADOL/ADULT) | | | + + + + | Influenza, PF | 07/17/2013, 09/18/2012 | | | Recombinant, | | | | Trivalent (Flublok) | | | + + + + | Pneumococcal | 04/25/2014 | | | Polysaccharide | | | | 23-valent | | | + + + + | Tdap | 07/03/2012 | | + + + + Social History + +-------+ +--------+------+ | Tobacco Use | Types | Packs/Day | Years | Date | | | | | Used | | + +-------+ +--------+------+ | Current Every Day | | | | | | Smoker | | | | | + +-------+ +--------+------+ + +---+---+---+ | Smokeless Tobacco: | | | | | Never Used | | | | + +---+---+---+ + + +---------+ + | Alcohol Use | Drinks/We | oz/Week | Comments | | | ek | | | + + +---------+ + | Yes | | | daily | + + +---------+ + + + + | Sex Assigned at | Date Recorded | | | | + + + | Not on file | | + + + Last Filed Vital Signs + + + + | Vital Sign | Reading | Time Taken | + + + + | Blood Pressure | 149/102 | 04/04/2019 2:24 PM PDT | + + + + | Pulse | 94 | 04/04/2019 2:24 PM PDT | + + + + | Temperature | 36.8 C (98.2 F) | 04/04/2019 2:24 PM PDT | + + + + | Respiratory Rate | 16 | 04/04/2019 2:24 PM PDT | + + + + | Oxygen Saturation | 98% | 04/04/2019 2:24 PM PDT | + + + + | Inhaled Oxygen | - | - | | Concentration | | | + + + + | Weight | 97.4 kg (214 lb 12.8 | 04/04/2019 2:24 PM PDT | | | oz) | | + + + + | Height | - | - | + + + + | Body Mass Index | - | - | + + + + Plan of Treatment + + + + + | Health Maintenance | Due Date | Last Done | Comments | + + + + + | Vaccine: | | 04/25/2014 | | | Pneumococcal 19-64 | 5 | | | | Highest Risk (2 of 3 | | | | | - PCV13) | | | | + + + + + | Vaccine: Influenza | | 11/07/2014, 07/17/2013, | | | (#1) | 9 | 09/18/2012 | | + + + + + | Vaccine: | | 07/03/2012 | | | Dtap/Tdap/Td (2 - | 2 | | | | Td) | | | | + + + + + Results Not on filefrom Last 3 Months Insurance +-------+--------+ +------+-------+---------+ | Payer | Benefi | Subscriber | Type | Phone | Address | | | t Plan | ID | | | | | | / | | | | | | | Group | | | | | +-------+--------+ +------+-------+---------+ | AETNA | AETNA | [id number] | | | | | | - [place] | | | | | | | [place] | | | | | | | [place] | | | | | +-------+--------+ +------+-------+---------+ + +--------+ +--------+ + + | Guarantor Name | Accoun | Relation to | Date | Phone | Billing Address | | | t Type | Patient | of | | | | | | | | | | + +--------+ +--------+ + + | RONNI MAHMOOD | Person | Self [birth year] | Work: | [address] | | | 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
--- OUTSIDE RECORDS SUMMARY | ~2019-10-09 | XMS | Encounter Summary ---
Demographics + + + | Address | [address] | | | [place] [address] | + + + | Home Phone [...] | | | | [place] [address] | | + + + + + Care Team Providers + +------+ + | Care Transportation Engineer Name | Role | Phone | + +------+ + | Daniel Cannon MD | PCP | | + +------+ + Encounter Details +--------+ + + + + | Date | Type | Department | Care Team | Description | +--------+ + + + + | 12/26/ | Document-Sc | Hematology/Medical | Javier Montaño, | | | 2018 | anned | Oncology at [place] | [address] | | | | | for Health & Healing | [facility] [place] | | | | | [address] | [address] | | | | | Mailcode: [place] | [phone] | | | | | for Health and | | | | | | Healing, [address] | | | | | | [place], [place] | | | | | | [address] | | | | | | [phone] | | | +--------+ + + + [...] 2020 | Visit | | MD Sidney [address] [facility] | | | | | | [address] | | | | | | [place], [place] | | | | | | [address] | | | | | | [phone] | | | | | | | [...]
--- OUTSIDE RECORDS SUMMARY | ~2019-10-09 | XMS | Encounter Summary ---
Demographics + + + | Address | [address] | | | [place] [address] | + + + | Home Phone [...] + + + | Author | [facility] | + + + | Organization | [facility] | + + + | Address | Unknown | + + + | Phone | Unavailable | + + + Support + + + + + | Name | Relationship | Address | Phone | + + + + + | Cecile Chowdhury | ECON | [address] | | | | | [place] [address] | | + + + + + Care Team Providers + +------+ + | Care Service Order Dispatcher Name | Role | Phone | + [...] | | | Surgery Services at | [facility] | | | | | [address] | [place], [place] | | | | | [address] | [address] | | | | | Mailcode: [address] | [phone] | | | | | [facility] | | | | | | [place], [place] | | | | | | [address] | | | | | | [phone] | | | +--------+--------+ + + + [...] [address] | | | | | | [place] | | | | | | [address] | | | | | | [phone] | | | | | | | | +--------+---------+ + + + documented as of this encounter Visit Diagnoses Not on filedocumented in this encounter"
--- OUTSIDE RECORDS SUMMARY | ~2019-10-09 | XMS | Encounter Summary ---
Demographics + + + | Address | [address] | | | [place] [address] | + + + | Home Phone [...] | | | | [place] [address] | | + + + + + Care Team Providers + +------+ + | Care Garden Machinery Mechanic Name | Role | Phone | [...] Laryngology Services | MD Sidney [address] [facility] | | | | | at [facility] [address] | | | | | [address] [place], | [place], [place] | | | | | [place] [address] | [address] | | | | | [phone] | [phone] | | | | | | | [...] | Visit | | MD Sidney [address] [facility] | | | | | | [address] | | | | | | [place], [place] | | | | | | [address] | | | | | | [phone] | | | | | | | [...]
--- OUTSIDE RECORDS SUMMARY | ~2019-10-09 | XMS | Clinical Summary ---
Demographics + + + | Address | [address] | | | [place] [address] | + + + | Home Phone | | + + + | Preferred Language | Unknown | + + + | Marital Status | | + + + | Buddhist Affiliation | Unknown | + + + | Race | Unknown | + + + | Ethnic Group | Unknown | + + + Author + + + | Author | [facility] (Historical as of | | | 06-02-19) | + + + | Organization | [facility] (Historical as of | | | 06-02-19) [...] Team Providers + +------+ + | Care Utilization Review Coordinator Name | Role | Phone | [...] | 11/0 | | Activ | | XJE-Xxku-DfAngb-MgHy | every 4 (four) hours | | [...] +-------+--------+ +------+-------+---------+ | AETNA | AETNA | [id number] | | | | | | - [...] | | al/Fam | | 1971 | [phone] | [place] | | | chary | | | [address]: | [address] | | | | | | | | | | | | [phone] | | | | | | | [address]130 | | + +--------+ +--------+ + +"
--- OUTSIDE RECORDS SUMMARY | ~2019-10-09 | XMS | Encounter Summary ---
Demographics + + + | Address | [address] | | | [place] [address] | + + + | Home Phone | | + + + | Preferred Language | Unknown | + + + | Marital Status | | + + + | Confucianist Affiliation | Unknown | + + + | Race | Unknown | + + + | Ethnic Group | Unknown | + + + Author + + + | Author | [facility] | | | and [place] | + + + | Organization | [facility] | | | [...] Team Providers + +------+ + | Care Microbiology Soil Scientist Name | Role | Phone | + [...] Brianna MAY | | | | | [phone] | [place] [address] | | +--------+ + + + + [...] [place] | | | | | | [address] | | | | | | | [...]
--- OUTSIDE RECORDS SUMMARY | ~2019-10-09 | XMS | Encounter Summary ---
Demographics + + + | Address | [address] | | | [place] [address] | + + + | Home Phone [...] + +------+ + | Care Director Of District Office Name | Role | Phone | + [...] [address] | | | | | | [address] [address], | [address] | | | | | | [place] [address] | [place], [place] | | | | | | Phone: | [address] Phone: | | | | | | [phone] | [phone] | | | | | | Fax: | Fax: | | | | | | [phone] | [phone] | +--------+ + + + + + Reason for Visit + + + | Reason | Comments | + + + | Under Treatment | | + + + Encounter Details +--------+ + + + + | Date | Type | Department | Care Team | Description | +--------+ + + + + | 09/14/ | [facility] | [facility] | Naida Burnette | Malignant neoplasm | | 2018 | Encounter | MED CTR RADIATION | MD Brad [address] | of glottis (HCC) | | | | ONCOLOGY CLINIC [address] | [place], [place] | (Primary Dx); | | | | [address] | [address] | Actinomyces neck | | | | [place] [address] | | abcess; Actinomyces | | | | [phone] | | neck abscess | +--------+ + [...] daily for 21 days. 63 capsule 0 npapgjmjckENNQI-pkxqhbhae-wupzhrqy & magnesium hydroxide-simethicone (MAGIC MOUTHWASH) Swish and [...] the abscess was performed in May at [facility]. He was prescribed a prolonged course of [...] Imodium. Encouraged him to also take probiotics. Pre Fabricator p rovided banana flakes as well. He feels that the area of prior abscess has decreased in siz e since restarting antibiotics. I recommend follow up with infectious disease provider in [facility] to determine duration of needed for antibiotic [...] | | | | | [address] [place], [place] | | | | | | [address] | | | | | | | [...]
--- OUTSIDE RECORDS SUMMARY | ~2019-10-09 | XMS | Encounter Summary ---
Demographics + + + | Address | [address] | | | [place] [address] | + + + | Home Phone [...] | | | | [place] [address] | | + + + + + Care Team Providers + +------+ + | Care Technology Services Manager Name | Role | Phone | [...] + + | 06/20/ | Hospital | [facility] [address] | Pasquale Moscoso | | | 2018 - | Encounter | [place] Mailcode: | MD [place] [address] [facility] | | | | | [id number] Padmini | [facility] | | | 06/21/ | | [place], | [place], [place] | | | 2018 | | [place] [address] | [address] | | | | | [phone] | [phone] | | | | | | | [...] for further guidance regarding this medication. Available rkcz-vpb-ifnyopr. CHANGE how you take these medications acetaminophen [...] exceed more than 4g per day. Available qfqm-zkn-tkuiljx. You have been taking this medication, 1000 [...] for further guidance regarding this medication. Available sazg-siz-iidhyrx. CONTINUE taking these medications albuterol 90 mcg/actuation [...] contact your local doctor Daniel Cannon MD ([facility]) for drain removal. Protocol for drain removal if <30 ml within 24 hrs. 07/10/2018 9:00 AM Steven Vidal [facility] Otolaryngolo 07/10/2018 9:45 AM Pasquale Moscoso MD ENTLAR Otolaryngolo 07/21/2018 11:15 AM Pasquale Moscoso MD [facility] Otolaryngo HOW TO REACH US: Tuesday- Tuesday from 8:00am to 4:30pm, call the Otolaryngology clinic at [phone]. After hours, weekends, and holidays, call the [facility] automatic pad making machine operator at [phone] and as k to have the ENT doctor on-call paged Future Appointments Date Time Provider Department Center 07/10/2018 9:00 AM Steven GONZALEZ Otolaryngolo 07/10/2018 9:45 AM MD POLINA [place] Otolaryngoangel 07/21/2018 11:15 AM Pasquale Moscoso MD [facility] Otolaryngo Vitals on discharge: Ht 1.88 m [...] and Neck Surgery Mail Code PV01 [address] [place] [address] Pager [phone] Consult/Night/Weekend Pager: [phone] documented in this encounter Discharge Instructions Instructions Patti Hugo RN - 06/21/2018Patient Education Materials: when to victor manuel reid MD, discharge paperwork, medications Additional Instructions: incision care, Dysphagia diet Learning About the Diet for Swallowing Problems What are swallowing problems? Difficulty swallowing is also called dysphagia (say "hea-BMZ-zer-fabian"). It is most often a s ign [...] and how thick to make the liquids. [place]-thick liquids leave a thin coating when they [...] Diet for Swallowing Problems", log into your Sampa account at [email or web address]. You can enter R741 in the "Last Size Library" search box. Not on Service at Home? Review the Service at Home section of your After Visit Summary for directions on red w to sign up. Current as of: September 05, 2017 Content Version: [id number] [employer]. Care instructions adapted under license by [facility] [employer] & [employer] [place]. If you have questions about a medical condition or this instr uction, always ask your healthcare professional. [employer] disclaims any carlos anty or liability for [...] "Learning About Swallowing Problems", log into your Service at Home account at [email or web address]. You can enter D018 in the "Last Size Library" search box. Not on Service at Home? Review the MyChart section of your After Visit Summary for directions on red dillard to sign up. Current as of: September 05, 2017 Content Version: [id number] [employer]. Care instructions adapted under license by [facility] [employer] [place]. If you have questions about a medical condition or this instr uction, always ask your healthcare professional. [employer] disclaims any carlos anty or liability for your use of this information. Discharge Nurse: Patti Hugo RN Date: 06/21/2018 Discharge Time: 8:43 AM AttachmentsThe following attachments cannot be sent through Care Everywhere.Post-op Infecti on (Yi)documented in this encounter Medications at Time of [...] follow-up with Dr. Moscoso in 1 m [facility]. No other needs at this time. Steven Vidal, PhD, [facility] SUPERVISOR [facility] and [employer] [place] Dept. of Otolaryngology, PV-[address] [facility] [place] [address] do cumented in this encounter Plan of Treatment +--------+---------+ + + + | Date | Type | Specialty | Care Team | Description | +--------+---------+ + + + | 03/19/ | Office | Otolaryngology | Pasquale Moscoso | | | 2019 | Visit | | MD Sidney [address] [facility] | | | | | | [address] | | | | | | [place], [place] | | | | | | [address] | | | | | | [phone] | | | | | | | [...] 3:46 PM | of glottis ([facility]) | | | | Surgic | [...] 3:46 PM | of glottis ([facility]) | | | | Surgic | [...] 3:46 PM | of glottis ([facility]) | | | LASER, | Surgic [...] NAME: | | | Ronni Chowdhury MR#: [id number] : 1970 Date: 06/20/2018 | | | Attending Surgeon: Pasquale Moscoso M.D. Quarantine Inspector(s): | | | Augustine Leal MD; Lyndsey [...] procedure. Pasquale Moscoso M.D. | | | Info Specialist Laryngology and Head & Neck Surgery Tel:[phone] | | | [phone] | | + + + DIRECT LARYNGOSCOPY WITH BIOPSY WITH MICROSCOPE (06/20/2018 6:50 PM PDT) + + + | Narrative | Performed At | + + + | Pasquale Moscoso MD 06/22/2018 2:42 PM PATIENT NAME: | | | Ronni Chowdhury MR#: [id number] : 1970 Date: 06/20/2018 | | | Attending Surgeon: Pasquale Moscoso M.D. Quarantine Inspector(s): | | | Augustine Leal MD; Lyndsey [...] procedure. Pasquale Moscoso M.D. | | | Info Specialist Laryngology and Head & Neck Surgery Tel:[phone] | | | [phone] | | + + + CULTURE, WOUND [...] | + + + + + | [facility] - | [address] | [place] [address] | | | [place] | | | | + + + [...] number | | | | | | [id number].A. Throat, | | | | | | [...] | + + + + + | [facility] | [address] | [place] [address] | | | PATHOLOGY | [address] [...]
--- OUTSIDE RECORDS SUMMARY | ~2019-10-09 | XMS | Encounter Summary ---
Demographics + + + | Address | [address] | | | [place] [address] | + + + | Home Phone | | + + + | Preferred Language | Unknown | + + + | Marital Status | | + + + | Amish Affiliation | NRP | + + + [...] | | | | [place] [address] | | + + + + + Care Team Providers + +------+ + | Care Manufacturing Supervisor Name | Role | Phone | [...] [address] | | | | | | [place] | | | | | | [address] | | | | | | [phone] | | | | | | | | +--------+---------+ + + + documented as of this encounter Visit Diagnoses Not on filedocumented in this encounter"
--- OUTSIDE RECORDS SUMMARY | ~2019-10-09 | XMS | Encounter Summary ---
Demographics + + + | Address | [address] | | | [place] [address] | + + + | Home Phone | | + + + | Preferred Language | Unknown | + + + | Marital Status | | + + + | Mandaen Affiliation | NRP | + + + [...] | | | | [place] [address] | | + + + + + Care Team Providers + +------+ + | Care Rn Orthopedic Name | Role | Phone | + [...] Mailcode: | | | | | | [place], [place] | [address] | | | | | | [address] | [facility] | | | | | | Phone: | and Healing, | | | | | | [phone] | [address], | | | | | | Fax: | [address]th Floor | | | | | | [phone] | [place], [place] | | | | | | | [address] | | | | | | | Phone: | | | | | | | [phone] | | | | | | | Fax: | | | | | | | [phone] | +--------+--------+ + + + + Encounter Details +--------+ + + + + | Date | Type | Department | Care Team | Description | +--------+ + + + + | 02/06/ | Diagnostic | Otolaryngology | Steven Vidal, | | | 2018 | Visit | Speech Therapy | COMBAT CONTROL [address] | | | | | Services at [facility] | [facility] | | | | | [address] | [place] [address] | | | | | Loop Mailcode: PV01 | [phone] | | | | | Physician's | | | | | | [place], | | | | | | [place] [address] | | | | | | [phone] | | | +--------+ + + + [...] PROGRAM: ? What do I eat? o [place] purees: e.g. yogurt, ice cream, apple-sauce, milkshakes, [...] be different fro m the original. Clinic: [facility] Referring [...] seen also with Bernie Fang, Speech Pathology internal affairs commander. INTERVAL HISTORY: No new issues. Reports TFs [...] pain (close follow up with his [facility] doctor). The patient had stable [...] tracheotomy tubeto a new #4 S addison [facility] tracheotomy tube and plugged it. Voice hoarse [...] me and Dr. Mueller. Steven Vidal, PhD, CCC-COMBAT CONTROL [facility] and [facility] [place] Dept. of Otolaryngology, PV[address] [place] [address] SWALLOWING THERAPY SAFETY SWALLOW: 1. Put some [...] PROGRAM: ? What do I eat? o [place] purees: e.g. yogurt, ice cream, apple-sauce, milkshakes, [...] 2019 | Visit | | MD Sidney [address] | | | | | | [address] | | | | | | [place], [place] | | | | | | [address] | | | | | | [phone] | | | | | | | | +--------+---------+ + + + documented as of this encounter Procedures + +--------+ + + + | Procedure Name | Priori | Date/Time | Associated Diagnosis | Comments | | | ty | | | | + +--------+ + + + | DE EVAL,ORAL & | Routin | 02/06/2018 | [...]
--- OUTSIDE RECORDS SUMMARY | ~2019-10-09 | XMS | Encounter Summary ---
Demographics + + + | Address | [address] | | | [place] [address] | + + + | Home Phone [...] | | | | [place] [address] | | + + + + + Care Team Providers + +------+ + | Care Research Statistician Name | Role | Phone | + [...] MD | | | | | cancer ([facility]) | [address] | [address] [facility] | | | | | Procedures | [address] | [address] | | | | | CONSULT TO | [facility] [place] | [place], | | | | | ENT GENERAL | [address] | [place] | | | | | | Phone: | [address] | | | | | | [phone] | Phone: | | | | | | Fax: | [phone] | | | | | | [phone] | Fax: | | | | | | | [phone] | +--------+--------+ + + + + Encounter Details +--------+ + + + + | Date | Type | Department | Care Team | Description | +--------+ + + + + | 12/26/ | Rubbish Collection Supervisor | Hematology/Medical | Javier Montaño, | Laryngeal cancer | | 2018 | | Oncology at [place] | [address] | (HCC) (Primary Dx) | | | | for Health & Healing | [facility] [place] | | | | | [address] | [address] | | | | | Mailcode: [place] | [phone] | | | | | for Health and | | | | | | Healing, [address] | | | | | | [place], [place] | | | | | | [address] | | | | | | [phone] | | | +--------+ + + + [...] Rd | | | | | | [place], [place] | | | | | | [address] | | | | | | [phone] | | | | | | | | +--------+---------+ + + + documented as of this encounter Visit Diagnoses + + | Diagnosis | + + | 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
[2019-10-09] MEDS ORDERED: VENTOLIN HFA18 GM INH (10:52)
[2019-10-09] MEDS ORDERED: AMLODIPINE BESY10 MG PO (10:53)
== END 2019-10-09 10:55 | disposition home or self-care (01) ==
LOC: ED 10:39
DX: M79.671 Pain in right foot (principal)